=== PATIENT | female | born 1960 | race Caucasian/White ===

== ENCOUNTER 2016-06-19 00:26 | Emergency (ER) | payer OTHER ==
[~2016-06-19] VITALS: Ht 160 cm; Wt 83.1 kg
[~2016-06-19 00:26] MED LIST: ALBU1AER9 INH; ALPR0.25 PO; CYAN3INJ IM; DIPH-437 PO; EFF75 PO; FRS/40 PO; OXGN; PREG100C PO; SUCR5SUS PO; WLL100 PO
[2016-06-19 00:34] VITALS: TEMP 36.5; Ht 160 cm; Wt 83.1 kg
[2016-06-19] MEDS ORDERED: SODIUM CHLORIDE 0.9% 1000ML 1,000 ML IV STA (00:50)
[2016-06-19] MEDS ORDERED: ONDANSETRON INJ 2 MG/ML 2 ML VIAL IV STA (00:50)
[2016-06-19 01:24] LABS: BASO % 1.8 %; COMPLETE YES; EOS % 2.6 %; HEMATOCRIT 36.4 % (37-47); IG% 0.2 %; LYMPH % 20.6 %; LYMPH ABS # 1.13 K/uL (1.2-3.4); MEAN CELL VOLUME 95.3 fL (80-100); MEAN CORPUSCULAR HEMOGLOBIN 30.9 pg (25-34); MEAN CORPUSCULAR HGB CONC 32.4 g/dl (32-36); MEAN PLATELET VOLUME 10.6 fL (7.4-10.4); MONO % 14.8 %; PLATELET COUNT 235 K/uL (130-400); RED BLOOD COUNT 3.82 M/uL (4.2-5.4); WHITE BLOOD COUNT 5.49 K/uL (4.8-10.8)
[2016-06-19 01:35] LABS: BLOOD UREA NITROGEN 18 mg/dl (7-18); BUN/CREATININE RATIO 18.5 (10-20); CALCIUM 8.3 mg/dl (8.5-10.1); CARBON DIOXIDE 23 mmol/L (21-32); CHLORIDE 112 mmol/L (98-107); CREATININE 0.95 mg/dl (0.60-1.20); GLUCOSE 127 mg/dl (70-99); POTASSIUM 4.1 mmol/L (3.5-5.1); SODIUM 144 mmol/L (136-145)
[2016-06-19 01:36] LABS: ALT/SGPT 16 U/L (12-78); AST/SGOT 8 U/L (15-37)
[2016-06-19 01:38] LABS: ALKALINE PHOSPHATASE 63 U/L (45-117)
[2016-06-19 01:45] LABS: URINE APPEARANCE CLOUDY (CLEAR); URINE BILIRUBIN NEG (NEG); URINE COLOR YELLOW; URINE EPITHELIAL CELL AUTO >30 /lpf (0-5); URINE NITRITE NEG (NEG); URINE SPECIFIC GRAVITY 1.033 (1.000-1.030); UROBILINOGEN NEG (NEG); ZZUR CULT IF INDIC CLEAN CATCH NO
[2016-06-19 01:55] LABS: MANUAL MICROSCOPIC REQUIRED? NO; REVIEW REQ? YES
--- NOTE | 2016-06-19 02:13 | EMERGENCY ROOM VISIT NOTE ---
History Report prepared by Vernellibmarguerite: Surya Galvan Under the Supervision of: Dr. Chu Drew D.O. First contact with patient: 00:40 Chief Complaint: FLU LIKE SX Stated Complaint: FEVER,VOMITING History of Present Illness The patient is a 56 year old female who presents to the Emergency Room with complaints of recurrent vomiting that started tonight. The patient vomited 2-3 times over the past hour. The patient also complains of fevers, lightheadedness , and coughing over the past several days. The patient's temperature has reached up to 103, as per her . Source of History: patient, spouse/significant other Onset: tonight Position: other (GI) Quality: other (vomiting) Timing: other (recurrent) Associated Symptoms: + cough, + fevers Review of Systems See HPI for pertinent positives & negatives. A total of 10 systems reviewed and were otherwise negative. Past Medical & Surgical Medical Problems: (1) Chronic obstructive lung disease (2) Congestive heart failure, unspecified (3) Depression (4) Fibromyalgia (5) GERD (gastroesophageal reflux disease) (6) HYPERLIPIDEMIA NEC/NOS (7) HYPERTENSION NOS (8) Leg wound, left (9) Nocturnal hypoxemia (10) OBSTRUCTIVE SLEEP APNEA (ADULT) (PEDIATRIC) (11) Osteoarthritis (12) Restless legs Surgical Problems: (1) Gastric bypass status for obesity (2) H/O arthroscopic knee surgery (3) Hx of appendectomy (4) S/P bronchoscopy (5) S/p EGD Family History Unobtainable family history due to adoption Social History Smoking Status: Never Smoker Alcohol Use: none Drug Use: none Marital Status: Housing Status: lives with significant other Occupation Status: unemployed Current/Historical Medications Scheduled Acetaminophen/Diphenhydramine (Tylenol Pm), 3 TAB PO HS Bupropion HCl (Bupropion HCl), 100 MG PO QAM Cyanocobalamin (Cyanocobalamin), 1,000 MCG INJ MONTHLY Omeprazole (Prilosec), 20 MG PO BID Oxygen (Oxygen), 3 LITERS NA HS Pediatric Multiple Vitamins W/ (Flintstones Plus Iron), 1 TAB PO QAM Pregabalin (Lyrica), 100 MG PO TID Sucralfate (Carafate), 1 GM PO QID Venlafaxine Hcl (Effexor), 75 MG PO BID Scheduled PRN Albuterol Hfa (Ventolin Hfa), 2 PUFFS INH Q6H PRN for SOB/Wheezing Alprazolam (Xanax), 0.25 MG PO DAILY PRN for Anxiety Furosemide (Lasix), 40-80 MG PO DAILY PRN for swelling Allergies Coded Allergies: Codeine (Verified Allergy, Intermediate, DIARRHEA/RASH,TOLERATES PERCOCET , 06/19/16) TOLERATES PERCOCET Clonazepam (Verified Allergy, Unknown, "PASS OUT", 06/19/16) NSAIDs (Verified Allergy, Unknown, UNKNOWN, 06/19/16) Sulfamethoxazole w/Trimethoprim (Verified Adverse Reaction, Intermediate, DELIRIUM, 06/19/16) pt devoped invontary muscle spasm ; Aspirin (Verified Adverse Reaction, Unknown, STOMACH IRRITATION, 06/19/16) Cephalexin (Verified Adverse Reaction, Unknown, GI SYMPTOMS, 06/19/16) UPSET STOMACH Hydrocodone (Verified Adverse Reaction, Unknown, OVESEDATION, 05/29/16) Hydromorphone (Verified Adverse Reaction, Unknown, weakness,sweating, 05/29) Physical Exam Vital Signs Date Time Temp Pulse Resp B/P Pulse Ox O2 Delivery O2 Flow Rate FiO2 06/19/16 02:22 70 18 116/65 95 Room Air 06/19/16 00:34 36.5 72 18 137/77 96 Room Air Physical Exam CONSTITUTIONAL/VITAL SIGNS: Reviewed / noted above. GENERAL: Non-toxic in appearance. INTEGUMENTARY: Warm, dry, and [place]. HEAD: Normocephalic. EYES: without scleral icterus or trauma. ENT/OROPHARYNX: clear and moist. LYMPHADENOPATHY/NECK: Is supple without lymphadenopathy or meningismus. RESPIRATORY: Lungs clear and equal. CARDIOVASCULAR: Regular rate and rhythm. GI/ABDOMEN: Soft and nontender. No organomegaly or pulsatile mass. No rebound or guarding. Normal bowel sounds. EXTREMITIES: Warm and well perfused. BACK: No CVA tenderness. NEUROLOGICAL: Intact without focal deficits. PSYCHIATRIC: normal affect. MUSCULOSKELETAL: Normally developed with good muscle tone. Medical Decision & Procedures ER Provider Diagnostic Interpretation: X ray results and stated below per my interpretation. CHEST ONE VIEW PORTABLE: No acute disease, no pneumonia, no free air. Laboratory Results 06/19/16 01:00 Red Blood Count 3.82, Mean Corpuscular Volume 95.3, Mean Corpuscular Hemoglobin 30.9, Mean Corpuscular Hemoglobin Concent 32.4, Mean Platelet Volume 10.6, Neutrophils (%) (Auto) 60.0, Lymphocytes (%) (Auto) 20.6, Monocytes (%) (Auto) 14.8, Eosinophils (%) (Auto) 2.6, Basophils (%) (Auto) 1.8, Neutrophils # (Auto ) 3.30, Lymphocytes # (Auto) 1.13, Monocytes # (Auto) 0.81, Eosinophils # (Auto ) 0.14, Basophils # (Auto) 0.10 06/19/16 01:00 Test 06/19/16 01:00 06/19/16 01:08 White Blood Count 5.49 K/uL (4.8-10.8) Red Blood Count 3.82 M/uL (4.2-5.4) Hemoglobin 11.8 g/dL (12.0-16.0) Hematocrit 36.4 % (37-47) Mean Corpuscular Volume 95.3 fL (80-100) Mean Corpuscular Hemoglobin 30.9 pg (25-34) Mean Corpuscular Hemoglobin Concent 32.4 g/dl (32-36) Platelet Count 235 K/uL (130-400) Mean Platelet Volume 10.6 fL (7.4-10.4) Neutrophils (%) (Auto) 60.0 % Lymphocytes (%) (Auto) 20.6 % Monocytes (%) (Auto) 14.8 % Eosinophils (%) (Auto) 2.6 % Basophils (%) (Auto) 1.8 % Neutrophils # (Auto) 3.30 K/uL (1.4-6.5) Lymphocytes # (Auto) 1.13 K/uL (1.2-3.4) Monocytes # (Auto) 0.81 K/uL (0.11-0.59) Eosinophils # (Auto) 0.14 K/uL (0-0.5) Basophils # (Auto) 0.10 K/uL (0-0.2) RDW Standard Deviation 50.5 fL (36.4-46.3) RDW Coefficient of Variation 14.6 % (11.5-14.5) Immature Granulocyte % (Auto) 0.2 % Immature Granulocyte # (Auto) 0.01 K/uL (0.00-0.02) Anion Gap 9.0 mmol/L (3-11) Est Creatinine Clear Calc Drug Dose 67.5 ml/min Estimated GFR () 77.6 Estimated GFR (Non- 67.0 BUN/Creatinine Ratio 18.5 (10-20) Calcium Level 8.3 mg/dl (8.5-10.1) Total Bilirubin 0.2 mg/dl (0.2-1) Direct Bilirubin < 0.1 mg/dl (0-0.2) Aspartate Amino Transf (AST/SGOT) 8 U/L (15-37) Alanine Aminotransferase (ALT/SGPT) 16 U/L (12-78) Alkaline Phosphatase 63 U/L (45-117) Total Protein 6.4 gm/dl (6.4-8.2) Albumin 3.1 gm/dl (3.4-5.0) Lipase 137 U/L (73-393) Urine Color YELLOW Urine Appearance CLOUDY (CLEAR) Urine pH 5.0 (4.5-7.5) Urine Specific [place] 1.033 (1.000-1.030) Urine Protein 1+ (NEG) Urine Glucose (UA) NEG (NEG) Urine Ketones TRACE (NEG) Urine Occult Blood NEG (NEG) Urine Nitrite NEG (NEG) Urine Bilirubin NEG (NEG) Urine Urobilinogen NEG (NEG) Urine Leukocyte Esterase NEG (NEG) Urine WBC (Auto) 1-5 /hpf (0-5) Urine RBC (Auto) >30 /hpf (0-4) Urine Hyaline Casts (Auto) 10-30 /lpf (0-5) Urine Epithelial Cells (Auto) >30 /lpf (0-5) Urine Bacteria (Auto) NEG (NEG) Urine Renal Epithelial Cells /lpf (0-5) Urine Crystals CALCIUM OXALATE (NONE Laboratory results as stated above per my review. Medications Administered Medications (Trade) Dose Ordered Sig/Gabriel Route Start Time Stop Time Status Last Admin Dose Admin Sodium Chloride (Nss 1000ml) 1,000 ml @ 999 mls/hr Q1H1M STAT IV 06/19/16 00:50 06/19/16 01:50 DC 06/19/16 01:15 999 MLS/HR Ondansetron HCl (Zofran Inj) 4 mg NOW STAT IV 06/19/16 00:50 06/19/16 00:57 DC 06/19/16 01:15 4 MG Ondansetron HCl (ZOFRAN ODT 4MG Home Pack) 1 [facility] UD ONCE PO 06/19/16 02:15 06/19/16 02:16 DC 06/19/16 02:15 1 [facility] ED Course 0041: Previous medical records were reviewed. The patient was evaluated in room B9. A complete history and physical examination was performed. 0050: Zofran 4 mg IV, NSS 1000 ml @ 999 mls/hr. 0215: Zofran Odt 4 mg PO home pack. 0215: Reassessed the patient. She verbalized understanding and agreement of the treatment plan. The patient is ready for discharge. Medical Decision Differential includes viral illness, influenza, streptococcal pharyngitis, meningitis, pneumonia, sinusitis, UTI, pyelonephritis, otitis media. This is a 56-year-old female who presents to the ED with a chief complaint of nausea and vomiting for the past several hours. She reports that she has had some upper respiratory symptoms as well over the past few days. She feels a little lightheaded and dizzy. Her vital signs are stable. She is afebrile. Exam was relatively unremarkable. She has no tenderness to the abdomen. CBC and complete metabolic panel are unremarkable. Urine did not suggest infection. She was treated with IV fluids and IV Zofran. She is felt to be stable for discharge and outpatient follow-up. Impression Primary Impression: Vomiting Scribe Attestation The scribe's documentation has been prepared under my direction and personally reviewed by me in its entirety. I confirm that the note above accurately reflects all work, treatment, procedures, and medical decision making performed by me. Departure Information Dispostion Home / Self-Care Referrals Kvng Ceron D.O. (PCP) Forms HOME CARE DOCUMENTATION FORM, IMPORTANT VISIT INFORMATION Patient Instructions ED Nausea Vomiting, My [facility] Additional Instructions Follow-up with your doctor for further care and evaluation in 1-2 days. Return to the emergency department for worsening or new symptoms or any concerns. You have been examined and treated today on an emergency basis only. This is not a substitute for, or an effort to provide, complete comprehensive medical care. It is impossible to recognize and treat all injuries or illnesses in a single emergency department visit. It is therefore important that you follow up closely with your doctor. Call as soon as possible for an appointment. Zofran: Allow one tablet to dissolve under the tongue every 6 hours as needed for nausea or vomiting.
[2016-06-19] MEDS ORDERED: ONDANSETRON HOME PACK 4MG OD TAB PO ONE (02:15)
[2016-06-19] MEDS ORDERED: VNTHFA/IN INH (02:20)
[2016-06-19 02:22] VITALS: BP 116/65; PULSE 70; O2SAT 95
--- NOTE | 2016-06-19 08:11 | DIAGNOSTIC IMAGING REPORT ---
CHEST ONE VIEW PORTABLE HISTORY: Generalized abdominal pain. COMPARISON: Chest 03/17/2016. FINDINGS: Patient is slightly rotated on this study. The heart is normal in size. The lungs appear clear. There is blunting the right lateral costophrenic sulcus. No pneumothorax. IMPRESSION: 1. Rotated study. 2. Blunting of the right lateral costophrenic sulcus. This could be due to focal pleural thickening or trace pleural fluid. 3. Otherwise, the lungs are clear. Electronically signed by: Elmer Quan M.D. 06/19/2016 8:10 AM Dictated Date/Time: 06/19/2016 8:09 AM
[2016-08-17] MEDS ORDERED: LYR100 PO (17:48)
[2016-08-17] MEDS ORDERED: LYR50 PO (17:57)
[2016-09-09] MEDS ORDERED: EFFSR75 PO (11:58)
[2016-09-09] MEDS ORDERED: VENL100T2 PO (12:03)
[2016-11-26] MEDS ORDERED: HYDR25CA PO (10:44)
[2016-11-26] MEDS ORDERED: EFFEXOR PO (10:44)
[2017-01-24] MEDS ORDERED: CYNI1000 IM (02:21)
[2017-01-24] MEDS ORDERED: PREG100C PO (10:44)
[2017-01-24] MEDS ORDERED: DIPH-437 PO (10:44)
[2017-01-24] MEDS ORDERED: CALC1TAB9 PO (10:44)
== END 2016-06-19 02:29 | disposition home or self-care (01) ==
LOC: C.EDB 00:28
DX: R11.10 Vomiting, unspecified (principal); J44.9 Chronic obstructive pulmonary disease, unspecified; I50.9 Heart failure, unspecified; F32.9 Major depressive disorder, single episode, unspecified; M79.7 Fibromyalgia; K21.9 Gastro-esophageal reflux disease without esophagitis; E78.5 Hyperlipidemia, unspecified; I10 Essential (primary) hypertension; G47.33 Obstructive sleep apnea (adult) (pediatric); Z98.84 Bariatric surgery status; Z99.81 Dependence on supplemental oxygen

== ENCOUNTER 2016-08-15 06:34 | Inpatient (IN) | payer OTHER ==
[~2016-08-15] VITALS: Ht 160 cm; Wt 85.0 kg
[2016-08-15] VITALS (7 sets, daily range): BP systolic 114–159; BP diastolic 57–99; PULSE 64–83; TEMP 36.5–36.9; O2SAT 93–100; Ht 160 cm; Wt 85.0 kg
[~2016-08-15 06:34] MED LIST changes: -ALBU1AER9 INH; -CYAN3INJ IM; +VNTHFA/IN INH
[2016-08-15] MEDS ORDERED: SODIUM CHLORIDE 0.9% 1000ML 1,000 ML IV STA (06:49)
[2016-08-15 07:10] LABS: BASO % 0.8 %; BASO ABS # 0.04 K/uL (0-0.2); COMPLETE YES; EOS % 2.1 %; HEMATOCRIT 41.3 % (37-47); IG% 0.2 %; LYMPH ABS # 1.43 K/uL (1.2-3.4); MEAN CELL VOLUME 93.7 fL (80-100); MEAN CORPUSCULAR HEMOGLOBIN 30.6 pg (25-34); MEAN CORPUSCULAR HGB CONC 32.7 g/dl (32-36); MEAN PLATELET VOLUME 9.6 fL (7.4-10.4); NEUT % 65.9 %; PLATELET COUNT 215 K/uL (130-400); RED BLOOD COUNT 4.41 M/uL (4.2-5.4); WHITE BLOOD COUNT 5.29 K/uL (4.8-10.8)
[2016-08-15 07:15] LABS: URINE APPEARANCE CLEAR (CLEAR); URINE BILIRUBIN NEG (NEG); URINE COLOR YELLOW; URINE NITRITE NEG (NEG); URINE PH 5.5 (4.5-7.5); UROBILINOGEN NEG (NEG)
[2016-08-15 07:19] LABS: MANUAL MICROSCOPIC REQUIRED? NO; REVIEW REQ? NO
[2016-08-15 07:35] LABS: ACETAMINOPHEN < 2 ug/ml (10-30)
[2016-08-15 07:37] LABS: ALT/SGPT 22 U/L (12-78); AST/SGOT 19 U/L (15-37); BLOOD UREA NITROGEN 14 mg/dl (7-18); CALCIUM 8.3 mg/dl (8.5-10.1); CARBON DIOXIDE 27 mmol/L (21-32); CHLORIDE 114 mmol/L (98-107); GLUCOSE 115 mg/dl (70-99); POTASSIUM 3.8 mmol/L (3.5-5.1); SODIUM 146 mmol/L (136-145)
[2016-08-15 07:43] LABS: BENZODIAZEPINE, URINE POS (NEG); COCAINE,URINE NEG (NEG); PHENCYCLIDINE, URINE NEG (NEG)
[2016-08-15] MEDS ORDERED: RAPID SEQUENCE INDUCTION BAG ONE (07:44)
[2016-08-15 07:48] LABS: ALKALINE PHOSPHATASE 89 U/L (45-117)
--- NOTE | 2016-08-15 07:55 | DIAGNOSTIC IMAGING REPORT ---
CT SCAN OF THE BRAIN WITHOUT IV CONTRAST CLINICAL HISTORY: Fever. Sepsis. Unresponsive. COMPARISON STUDY: CT of the brain dated 03/17/2016. TECHNIQUE: Unenhanced axial CT scan of the brain is performed from the vertex to the skull base. Automated dose control exposure was utilized. CT DOSE: 614.27 mGy.cm FINDINGS: Brain parenchyma: The brain parenchyma is normal in appearance. There is no hemorrhage, mass effect, or evidence of acute territorial ischemia by CT criteria. Gill-white matter is preserved. No extra-axial fluid collection is seen. Ventricles, sulci, cisterns: Normal in configuration. Intracranial vasculature: The visualized intracranial vasculature at the skull base is normal in appearance. Calvarium: Unremarkable. Sinuses and mastoids: The visualized paranasal sinuses are clear. The mastoid air cells are well pneumatized. Orbits: The bony orbits are grossly intact. Soft tissues: A tongue piercing is noted. IMPRESSION: There is no hemorrhage, mass effect, or evidence of acute territorial ischemia by CT criteria. Electronically signed by: Devin Aguirre M.D. 08/15/2016 7:52 AM Dictated Date/Time: 08/15/2016 7:36 AM
[2016-08-15] MEDS ORDERED: LORAZEPAM 2 MG/ML 1 ML VIAL ONE (08:03)
[2016-08-15] MEDS ORDERED: PROPOFOL IV EMULSION 10 MG/ML 100 ML VIAL IV ONE (08:08)
[2016-08-15] MEDS ORDERED: PROPOFOL IV EMULSION 10 MG/ML 100 ML VIAL IV PRN (08:15)
--- NOTE | 2016-08-15 08:15 | DIAGNOSTIC IMAGING REPORT ---
SINGLE VIEW CHEST CLINICAL HISTORY: Fever. Sepsis. FINDINGS: An AP, portable, semierect chest radiograph is compared to study dated 06/19/2016 and correlated with chest CT dated 03/18/2016. The examination is degraded by portable technique, motion artifact, and patient rotation. An endotracheal tube has been placed. The tip projects just below the thoracic inlet approximately 4.5 cm above the slime. The cardiomediastinal silhouette is unremarkable. There is mild prominence of the pulmonary vessels. Chronic interstitial thickening is similar to previous. No airspace consolidation or large pleural effusion is identified. No pneumothorax is seen. The skeletal structures are osteopenic. Degenerative change is noted throughout the thoracic spine. IMPRESSION: 1. No airspace consolidation or pleural effusion is identified. 2. There is mild prominence the central pulmonary vessels, possibly related to positioning. Correlate clinically for evidence of mild congestion. 3. The endotracheal tube projects 4.5 cm above the slime. Electronically signed by: Devin Aguirre M.D. 08/15/2016 8:13 AM Dictated Date/Time: 08/15/2016 8:08 AM
[2016-08-15 08:34] LABS: ALLEN TEST POS (POS); ARTERIAL BLD GAS O2 SATURATION 99.8 % (90-95); ARTERIAL BLOOD GAS BASE EXCESS -5.2 mEq/L (-9-1.8); ARTERIAL BLOOD GAS HCO3 23 mmol/L (19-24); ARTERIAL BLOOD GAS PO2 313 mm/Hg (80-95); ARTERIAL BLOOD GAS pH 7.24 (7.35-7.45); O2 ADMINISTRATION 60%
--- NOTE | 2016-08-15 08:44 | EMERGENCY ROOM VISIT NOTE ---
History Report prepared by [place]: Subha Roth Under the Supervision of: Dr. Chu Drew D.O. First contact with patient: 06:49 Chief Complaint: ALTERED MENTAL STATUS Stated Complaint: ALTERED MENTAL STATUS Nursing Triage Summary: Pt brought in by EMS. Pt was outside sleeping in a tent. found pt shaking and not responding appropriate. EMS would arouse pt and she would sit up and flail her arms. Pt arouses to sternal rub but is nonverbal. Snoring respirations. Pt was given Narcan 2 mg enroute with no response. Blood sugar was 95. Temp 33.1 Rectal. Pt incontinent of urine and stool. History of Present Illness The patient is a 56 year old female who presents to the Emergency Room in an altered mental status starting [employer]. The patient was brought to the ED by EMS. Nursing staff reports that the patient was tenting outside. Her found the patient shaking and unresponsive. She was found covered in emesis and had fecal and urinary incontinence. Her temperature was 33.1. She was given Narcan en route to no response. The history is limited due to the patient's altered mental status. 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 Review of Systems Unobtainable due to altered mental status. Past Medical & Surgical Medical Problems: (1) Anxiety (2) Congestive heart failure, unspecified (3) Depression (4) Dyslipidemia (5) Fibromyalgia (6) GERD (gastroesophageal reflux disease) (7) Leg wound, left (8) Organic sleep disorder (9) Osteoarthritis (10) Restless legs (11) Unresponsiveness Surgical Problems: (1) Gastric bypass status for obesity (2) H/O arthroscopic knee surgery (3) Hx of appendectomy (4) S/P bronchoscopy (5) S/p EGD Family History Unobtainable family history due to adoption Social History Smoking Status: Unknown if Ever Smoked Alcohol Use: none Drug Use: none Marital Status: Housing Status: lives with significant other Occupation Status: unemployed Current/Historical Medications Scheduled Acetaminophen/Diphenhydramine (Tylenol Pm), 3 TAB PO HS Baclofen (Lioresal), 5 MG PO BID Bupropion HCl (Bupropion HCl), 100 MG PO QAM Cyanocobalamin (Cyanocobalamin), 1,000 MCG INJ MONTHLY Omeprazole (Prilosec), 20 MG PO BID Pediatric Multiple Vitamins W/ (Flintstones Plus Iron), 2 TAB PO QAM Pregabalin (Lyrica), 100 MG PO TID Sucralfate (Carafate), 1 GM PO QID Venlafaxine Hcl (Effexor), 75 MG PO BID Scheduled PRN Albuterol Hfa (Ventolin Hfa), 2 PUFFS INH Q6H PRN for SOB/Wheezing Alprazolam (Xanax), 0.25 MG PO BID PRN for Anxiety Furosemide (Lasix), 40 MG PO DAILY PRN for swelling Allergies Coded Allergies: Codeine (Verified Allergy, Intermediate, DIARRHEA/RASH,TOLERATES PERCOCET , 06/19/16) TOLERATES PERCOCET Clonazepam (Verified Allergy, Unknown, "PASS OUT", 06/19/16) NSAIDs (Verified Allergy, Unknown, UNKNOWN, 06/19/16) Sulfamethoxazole w/Trimethoprim (Verified Adverse Reaction, Intermediate, DELIRIUM, 06/19/16) pt devoped invontary muscle spasm ; Aspirin (Verified Adverse Reaction, Unknown, STOMACH IRRITATION, 06/19/16) Cephalexin (Verified Adverse Reaction, Unknown, GI SYMPTOMS, 06/19/16) UPSET STOMACH Hydrocodone (Verified Adverse Reaction, Unknown, OVESEDATION, 05/29/16) Hydromorphone (Verified Adverse Reaction, Unknown, weakness,sweating, 05/29) Physical Exam Vital Signs Date Time Temp Pulse Resp B/P Pulse Ox O2 Delivery O2 Flow Rate FiO2 08/15/16 10:45 54 16 144/89 100 Mechanical Ventilator 60 08/15/16 10:05 48 18 147/101 100 Mechanical Ventilator 60 08/15/16 09:43 33.4 51 16 140/100 100 Mechanical Ventilator 60 08/15/16 09:00 56 16 148/87 100 60 08/15/16 08:55 45 16 148/87 100 Mechanical Ventilator 60 08/15/16 08:45 45 16 137/87 100 Mechanical Ventilator 60 08/15/16 08:41 47 16 136/87 100 Mechanical Ventilator 60 08/15/16 08:35 50 12 142/87 100 Mechanical Ventilator 60 08/15/16 08:26 52 12 139/81 100 Mechanical Ventilator 60 08/15/16 08:20 70 08/15/16 08:20 56 13 159/96 100 Mechanical Ventilator 60 08/15/16 08:12 59 12 152/102 100 Mechanical Ventilator 60 08/15/16 07:52 56 12 186/107 100 Mechanical Ventilator 60 08/15/16 07:47 49 12 178/99 100 Mechanical Ventilator 60 08/15/16 07:40 100 08/15/16 07:28 49 10 120/71 100 Non-Rebreather 15.0 08/15/16 06:53 100 Room Air 08/15/16 06:48 100 Room Air 08/15/16 06:44 55 08/15/16 06:38 33.1 54 24 171/89 100 Room Air Physical Exam CONSTITUTIONAL/VITAL SIGNS: Reviewed / noted above. GENERAL: Non-toxic in appearance. INTEGUMENTARY: Warm, dry, and [place]. HEAD: Normocephalic. EYES: without scleral icterus or trauma. Pupils are 3 mm, appropriate response to light stimulus. ENT/OROPHARYNX: clear and moist. LYMPHADENOPATHY/NECK: Is supple without lymphadenopathy or meningismus. RESPIRATORY: Lungs clear and equal. CARDIOVASCULAR: Regular rate and rhythm. GI/ABDOMEN: Soft and nontender. No organomegaly or pulsatile mass. No rebound or guarding. Normal bowel sounds. EXTREMITIES: Warm and well perfused. No evidence of trauma. BACK: No CVA tenderness. NEUROLOGICAL: Patient withdraws to painful stimuli, otherwise unresponsive. Minimal gag reflex. PSYCHIATRIC: normal affect. MUSCULOSKELETAL: Normally developed with good muscle tone. Medical Decision & Procedures ER Provider Diagnostic Interpretation: X ray results and stated below per my interpretation and radiology interpretation. Radiology results as stated below per my review and radiologist interpretation: SINGLE VIEW CHEST CLINICAL HISTORY: Fever. Sepsis. FINDINGS: An AP, portable, semierect chest radiograph is compared to study dated 06/19/2016 and correlated with chest CT dated 03/18/2016. The examination is degraded by portable technique, motion artifact, and patient rotation. An endotracheal tube has been placed. The tip projects just below the thoracic inlet approximately 4.5 cm above the slime. The cardiomediastinal silhouette is unremarkable. There is mild prominence of the pulmonary vessels. Chronic interstitial thickening is similar to previous. No airspace consolidation or large pleural effusion is identified. No pneumothorax is seen. The skeletal structures are osteopenic. Degenerative change is noted throughout the thoracic spine. IMPRESSION: 1. No airspace consolidation or pleural effusion is identified. 2. There is mild prominence the central pulmonary vessels, possibly related to positioning. Correlate clinically for evidence of mild congestion. 3. The endotracheal tube projects 4.5 cm above the slime. Electronically signed by: Devin Aguirre M.D. 08/15/2016 8:13 AM Dictated Date/Time: 08/15/2016 8:[address] SCAN OF THE BRAIN WITHOUT IV CONTRAST CLINICAL HISTORY: Fever. Sepsis. Unresponsive. COMPARISON STUDY: CT of the brain dated 03/17/2016. TECHNIQUE: Unenhanced axial CT scan of the brain is performed from the vertex to the skull base. Automated dose control exposure was utilized. CT DOSE: 614.27 mGy.cm FINDINGS: Brain parenchyma: The brain parenchyma is normal in appearance. There is no hemorrhage, mass effect, or evidence of acute territorial ischemia by CT criteria. Gill-white matter is preserved. No extra-axial fluid collection is seen. Ventricles, sulci, cisterns: Normal in configuration. Intracranial vasculature: The visualized intracranial vasculature at the skull base is normal in appearance. Calvarium: Unremarkable. Sinuses and mastoids: The visualized paranasal sinuses are clear. The mastoid air cells are well pneumatized. Orbits: The bony orbits are grossly intact. Soft tissues: A tongue piercing is noted. IMPRESSION: There is no hemorrhage, mass effect, or evidence of acute territorial ischemia by CT criteria. Electronically signed by: Devin Aguirre M.D. 08/15/2016 7:52 AM Dictated Date/Time: 08/15/2016 7:36 AM Laboratory Results 08/15/16 06:50 Red Blood Count 4.41, Mean Corpuscular Volume 93.7, Mean Corpuscular Hemoglobin 30.6, Mean Corpuscular Hemoglobin Concent 32.7, Mean Platelet Volume 9.6, Neutrophils (%) (Auto) 65.9, Lymphocytes (%) (Auto) 27.0, Monocytes (%) (Auto) 4.0, Eosinophils (%) (Auto) 2.1, Basophils (%) (Auto) 0.8, Neutrophils # (Auto) 3.49, Lymphocytes # (Auto) 1.43, Monocytes # (Auto) 0.21, Eosinophils # (Auto) 0.11, Basophils # (Auto) 0.04 08/15/16 06:50 Test 08/15/16 06:46 08/15/16 06:50 08/15/16 06:59 08/15/16 08:00 Bedside Glucose 111 mg/dl (70-90) White Blood Count 5.29 K/uL (4.8-10.8) Red Blood Count 4.41 M/uL (4.2-5.4) Hemoglobin 13.5 g/dL (12.0-16.0) Hematocrit 41.3 % (37-47) Mean Corpuscular Volume 93.7 fL (80-100) Mean Corpuscular Hemoglobin 30.6 pg (25-34) Mean Corpuscular Hemoglobin Concent 32.7 g/dl (32-36) Platelet Count 215 K/uL (130-400) Mean Platelet Volume 9.6 fL (7.4-10.4) Neutrophils (%) (Auto) 65.9 % Lymphocytes (%) (Auto) 27.0 % Monocytes (%) (Auto) 4.0 % Eosinophils (%) (Auto) 2.1 % Basophils (%) (Auto) 0.8 % Neutrophils # (Auto) 3.49 K/uL (1.4-6.5) Lymphocytes # (Auto) 1.43 K/uL (1.2-3.4) Monocytes # (Auto) 0.21 K/uL (0.11-0.59) Eosinophils # (Auto) 0.11 K/uL (0-0.5) Basophils # (Auto) 0.04 K/uL (0-0.2) RDW Standard Deviation 52.9 fL (36.4-46.3) RDW Coefficient of Variation 15.4 % (11.5-14.5) Immature Granulocyte % (Auto) 0.2 % Immature Granulocyte # (Auto) 0.01 K/uL (0.00-0.02) Prothrombin Time 11.0 SECONDS (9.0-12.0) Prothromb Time International Ratio 1.0 (0.9-1.1) Activated Partial Thromboplast Time 25.4 SECONDS (21.0-31.0) Partial Thromboplastin Ratio 1.0 Urine Color YELLOW Urine Appearance CLEAR (CLEAR) Urine pH 5.5 (4.5-7.5) Urine Specific [place] 1.010 (1.000-1.030) Urine Protein NEG (NEG) Urine Glucose (UA) NEG (NEG) Urine Ketones NEG (NEG) Urine Occult Blood NEG (NEG) Urine Nitrite NEG (NEG) Urine Bilirubin NEG (NEG) Urine Urobilinogen NEG (NEG) Urine Leukocyte Esterase NEG (NEG) Anion Gap 5.0 mmol/L (3-11) Est Creatinine Clear Calc Drug Dose 68.6 ml/min Estimated GFR () 72.9 Estimated GFR (Non- 62.9 BUN/Creatinine Ratio 14.0 (10-20) Osmolality 303 mOsm/kg (280-300) Calcium Level 8.3 mg/dl (8.5-10.1) Total Bilirubin 0.2 mg/dl (0.2-1) Direct Bilirubin < 0.1 mg/dl (0-0.2) Aspartate Amino Transf (AST/SGOT) 19 U/L (15-37) Alanine Aminotransferase (ALT/SGPT) 22 U/L (12-78) Alkaline Phosphatase 89 U/L (45-117) Total Creatine Kinase 99 U/L (26-192) Creatine Kinase MB 3.0 ng/ml (0.5-3.6) Creatine Kinase MB Ratio 3.0 (0-3.0) Troponin I < 0.015 ng/ml (0-0.045) Total Protein 6.9 gm/dl (6.4-8.2) Albumin 3.2 gm/dl (3.4-5.0) Lipase 115 U/L (73-393) Thyroid Stimulating Hormone (TSH) 2.420 uIu/ml (0.300-4.500) Human Chorionic Gonadotropin, Quant 2 mIU/mL Salicylates Level 5.0 mg/dl (2.8-20) Urine Opiates Screen NEG (NEG) Urine Methadone, Qualitative NEG (NEG) Acetaminophen Level < 2 ug/ml (10-30) Urine Barbiturates NEG (NEG) Urine Phencyclidine (PCP) Level NEG (NEG) Ur Amphetamine/Methamphetamine NEG (NEG) MDMA (Ecstasy) Screen POS (NEG) Urine Benzodiazepines Screen POS (NEG) Urine Cocaine Metabolite NEG (NEG) Urine Marijuana (THC) NEG (NEG) Ethyl Alcohol mg/dL < 3.0 mg/dl (0-3) Ammonia 15.0 umol/L (11-32) Arterial Blood pH 7.24 (7.35-7.45) Arterial Blood Partial Pressure CO2 54 mmHg (35-46) Arterial Blood Partial Pressure O2 313 mm/Hg (80-95) Arterial Blood HCO3 23 mmol/L (19-24) Arterial Blood Oxygen Saturation 99.8 % (90-95) Arterial Blood Base Excess -5.2 mEq/L (-9-1.8) Arterial Blood Gas Delivery 60% Cole Test POS (POS) Test 08/15/16 08:45 08/15/16 09:30 Lactic Acid Level 0.8 mmol/L (0.4-2.0) Carboxyhemoglobin 0.0 % [facility] Laboratory results as stated above per my review. Medications Administered Medications (Trade) Dose Ordered Sig/Gabriel Route Start Time Stop Time Status Last Admin Dose Admin Sodium Chloride (Nss 1000ml) 1,000 ml @ 999 mls/hr Q1H1M STAT IV 08/15/16 06:49 08/15/16 07:49 DC 08/15/16 06:55 999 MLS/HR Miscellaneous (Rapid Sequence Induction Bag) 1 ea STK-MED ONCE N/A 08/15/16 07:44 08/15/16 07:45 DC 08/15/16 07:40 1 EA Lorazepam (Ativan Inj) 2 mg STK-MED ONCE .ROUTE 08/15/16 08:03 08/15/16 08:04 DC 08/15/16 08:07 2 MG Propofol (Diprivan Iv Emulsion 100ml Vial) 1 dose STK-MED ONCE IV 08/15/16 08:08 08/15/16 08:09 DC 08/15/16 08:08 1 DOSE Procedure Endotracheal Intubation Indication unresponsiveness. The patient was on 100% oxygen via NRB prior to the procedure. Suction, airway equipment, RSI drugs, respiratory equipment, and appropriate personnel were prepared prior to the initiation of the procedure. A time out was taken. Induction was performed with etomidate 20 mg IV and succinylcholine 140 mg IV. After observing the clinical benefit of the medications, the airway was easily visualized utilizing a GlideScope. A 7.5 size ETT tube was placed atraumatically to 24 cm advance to 25 after chest X-ray using standard technique. The cuff inflated without signs of malfunction. There were bilateral breath sounds, positive colormetric change, no gastric sounds, a good capnography waveform, and post procedure pulse oximetry was 100%. Post intubation sedation and paralysis was administered using 2 mg IV Ativan. There were no complications. ECG Indication: altered mental status Rate (beats per minute): 53 Rhythm: sinus rhythm Findings: PAC, no ectopy, other (no acute injury) ED Course 0649: NSS 1000 ml @ 999 mls/hr IV. 0658: Previous medical records were reviewed. The patient was evaluated in room A12B. A complete history and physical examination was performed. 0705: The patient was moved to room A1. 0733: I intubated the patient according to the procedure note above. 0744: Rapid Sequence Induction Bag 1 ea. 0803: Lorazepam 2 mg IV. 0808: Propofol 1 dose IV. 0822: I discussed the patient's case with Seema Carlisle PA-C [facility] hospitalist group. She will evaluate the patient for further management. 1130: I have extubated the patient. She is now awake and responsive. Medical Decision Differential includes acute cardiac dysrhythmia, microinfarction, CVA, TIA, dehydration, anemia, electrolyte disturbance, seizure, trauma, intracranial bleeding, acute vascular catastrophe, thoracic aortic dissection, PE, abdominal aortic aneurysm rupture, infection, hypoglycemia, overdose, trauma. This is a 56-year-old female who presents to the ED with a chief complaint of unresponsiveness. According to the nurses, who spoke with EMS, the patient was outside sleeping in a tent last night with her . When he awoke this morning, he found that she was not responding appropriately and shaking. EMS states the with painful stimuli she would raise her arms and shake. She did not respond. Prehospital blood sugar was 95. Narcan 2 mg IV was given without response. The patient was transported here for evaluation. The patient has a rectal temperature of 33.1. Her vital signs are otherwise stable. She is not hypoxic. Her exam reveals withdrawal to painful stimuli but otherwise she is unresponsive with a GCS of 6. She has minimal gag reflex and is not swallowing her oral secretions. She did have vomitus at some point prior to arrival here. CT scan of the brain did not show acute process. CBC was normal. Complete metabolic panel was unremarkable. Ammonia level was negative. Troponin is negative. TSH is normal. HCG is negative. Lipase is negative. Urine did not show infection. Lactic acid is normal. Tox screen was positive for MDMA and benzos. Alcohol is negative. EKG shows a sinus rhythm at a rate around 53 with PACs. No acute injury. Chest x-ray, following intubation, revealed a endotracheal tube 4 cm above the slime. This was advanced 1 cm. The lungs appear to be clear. ABG reveals a pH of 7.24, PCO2 of 54 and PaO2 of 313. The patient's initial ventilator settings included a rate of 12, volume of 500, PEEP of 5 and 60% FiO2. The rate was increased to 16. After intubation, the patient was given 2 mg of IV Ativan. She was then started on a propofol drip as she was moving somewhat and appeared to be slightly uncomfortable with the ventilator. I spoke with the hospitalist, who will see the patient for further inpatient evaluation and care. Consults Time Called: 08 Consulting Physician: VONDA Willett hospitalist group Returned Call: 08 Discussed the patient's case. The patient will be evaluated for further treatment and disposition. Impression Primary Impression: Altered mental status Additional Impressions: Respiratory failure Respiratory acidosis Critical Care I have personally spent greater than 35 minutes of critical care time in the direct management of this patient. This includes bedside care, interpretation of diagnostic studies, and testing, discussion with consultants, patient, and family members, and other required patient management activities. This 35 minutes is in excess of all separately billable procedures. Scribe Attestation The scribe's documentation has been prepared under my direction and personally reviewed by me in its entirety. I confirm that the note above accurately reflects all work, treatment, procedures, and medical decision making performed by me. Departure Information Dispostion Being Evaluated By Hospitalist Referrals Kvng Ceron D.O. (PCP) Patient Instructions My [facility] Problem Qualifiers
[2016-08-15] MEDS ORDERED: BACL1TAB PO (09:43)
--- NOTE | 2016-08-15 13:17 | History and Physical ---
History & Physical Date & Time of Service: Aug 15, 2016 at 09:45 Chief Complaint: Altered Mental Status Primary Care Physician: Kvng Ceron D.O. 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 Per via phone call , pt was in normal state of health yesterday. Patient and were camping outside overnight. There was no heating in the tent. states overnight pt had an episode of diffuse body shaking. Then around 4:30 am was minimally responsive when he tried to wake her, was breathing abnormally, had another episode of diffuse body shaking, and dry heaves. called 911. Patient was given Narcan en route without effect. Pre-hospital BSG was WNL. On arrival to the ER she was noted to be covered in emesis and incontinent of bowel and bladder. She was minimally responsive to painful stimuli. Pt was hypothermic with HR 40s-50s with sinus bradycardia and PACs on EKG. Patient's respirations were as low as 10/min with poor gag reflex, therefore patient was intubated. He denies patient recently taking in alcohol or illicit drugs. Last narcotic medication use was >1 month ago (tramadol). states Xanax 0.25 mg recently was increased by psychiatrist from daily to BID. states she took 2 tabs yesterday am and unsure if she took it yesterday evening. Patient was hospitalized in Mar 2016 for overdose from Klonopin and marijuana. No hx of seizures per . Prior EEG in December 2015 neg for seizure, + for moderate encephalopathy of nonspecific etiology. This is an abnormal routine EEG secondary to moderate diffuse background disorganization and slowing. states pt is no longer on nocturnal O2 after having repeat sleep study. Past Medical/Surgical History Medical Problems: (1) Anxiety Status: Chronic (2) Congestive heart failure, unspecified Permanent Comment: echo 03/25/13-grade 1 diastolic dysfunction with mild concentric LVH Status: Chronic (3) Depression Status: Chronic (4) Dyslipidemia Status: Chronic (5) Fibromyalgia Status: Chronic (6) GERD (gastroesophageal reflux disease) Status: Chronic (7) Organic sleep disorder Status: Chronic (8) Osteoarthritis Status: Chronic (9) Restless legs Status: Chronic Surgical Problems: (1) Gastric bypass status for obesity Status: Chronic (2) H/O arthroscopic knee surgery Permanent Comment: R knee; 1998 Status: Chronic (3) Hx of appendectomy Status: Chronic (4) S/P bronchoscopy Status: Chronic (5) S/p EGD Permanent Comment: 11/24/2014- small ulcers at anastamosis, brandy removed/ [facility] Status: Chronic Family History Unobtainable family history due to adoption Social History Alcohol Use: no recent etoh use as per Drug Use: none (no recent illicit drugs as per . marijuana use noted on prior admission. ) Marital Status: Housing status: lives with significant other Immunizations History of Influenza Vaccine: N/A History of Tetanus Vaccine?: No Tetanus Immunization Date: Aug 09, 2004 History of Pneumococcal: Unknown History of Hepatitis B Vaccine: No Multi-Drug Resistant Organisms History of MDRO: No Allergies Coded Allergies: Codeine (Verified Allergy, Intermediate, DIARRHEA/RASH,TOLERATES PERCOCET , 06/19/16) TOLERATES PERCOCET Clonazepam (Verified Allergy, Unknown, "PASS OUT", 06/19/16) NSAIDs (Verified Allergy, Unknown, UNKNOWN, 06/19/16) Sulfamethoxazole w/Trimethoprim (Verified Adverse Reaction, Intermediate, DELIRIUM, 06/19/16) pt devoped invontary muscle spasm ; Aspirin (Verified Adverse Reaction, Unknown, STOMACH IRRITATION, 06/19/16) Cephalexin (Verified Adverse Reaction, Unknown, GI SYMPTOMS, 06/19/16) UPSET STOMACH Hydrocodone (Verified Adverse Reaction, Unknown, OVESEDATION, 05/29/16) Hydromorphone (Verified Adverse Reaction, Unknown, weakness,sweating, 05/29) Home Medications Scheduled Acetaminophen/Diphenhydramine (Tylenol Pm), 3 TAB PO HS Baclofen (Lioresal), 5 MG PO BID Bupropion HCl (Bupropion HCl), 100 MG PO QAM Cyanocobalamin (Cyanocobalamin), 1,000 MCG INJ MONTHLY Omeprazole (Prilosec), 20 MG PO BID Pediatric Multiple Vitamins W/ (Flintstones Plus Iron), 2 TAB PO QAM Pregabalin (Lyrica), 100 MG PO TID Sucralfate (Carafate), 1 GM PO QID Venlafaxine Hcl (Effexor), 75 MG PO BID Scheduled PRN Albuterol Hfa (Ventolin Hfa), 2 PUFFS INH Q6H PRN for SOB/Wheezing Alprazolam (Xanax), 0.25 MG PO BID PRN for Anxiety Furosemide (Lasix), 40 MG PO DAILY PRN for swelling Review of Systems Unobtainable due to unresponsiveness. Physical Exam Vital Signs Date Time Temp Pulse Resp B/P Pulse Ox O2 Delivery O2 Flow Rate FiO2 08/15/16 09:00 56 16 148/87 100 60 08/15/16 08:55 45 16 148/87 100 Mechanical Ventilator 60 08/15/16 08:45 45 16 137/87 100 Mechanical Ventilator 60 08/15/16 08:41 47 16 136/87 100 Mechanical Ventilator 60 08/15/16 08:35 50 12 142/87 100 Mechanical Ventilator 60 08/15/16 08:26 52 12 139/81 100 Mechanical Ventilator 60 08/15/16 08:20 70 08/15/16 08:20 56 13 159/96 100 Mechanical Ventilator 60 08/15/16 08:12 59 12 152/102 100 Mechanical Ventilator 60 08/15/16 07:52 56 12 186/107 100 Mechanical Ventilator 60 08/15/16 07:47 49 12 178/99 100 Mechanical Ventilator 60 08/15/16 07:40 100 08/15/16 07:28 49 10 120/71 100 Non-Rebreather 15.0 08/15/16 06:53 100 Room Air 08/15/16 06:48 100 Room Air 08/15/16 06:44 55 08/15/16 06:38 33.1 54 24 171/89 100 Room Air General Appearance: + pertinent finding (56 year old female, unresponsive to sternal rub, on ventilator) Head: normocephalic, atraumatic Eyes: normal inspection, PERRL, sclerae normal ENT: + pertinent finding (unable to examine) Neck: trachea midline Respiratory/Chest: lungs clear, normal breath sounds, + pertinent finding ( saturating well on ventilator) Cardiovascular: no murmur, + bradycardia (regular rhythm), + pertinent finding (peripheral pulses 1+) Abdomen/GI: normal bowel sounds, non tender, soft Extremities/Musculoskelatal: normal capillary refill, no pedal edema Neurologic/Psych: + pertinent finding (unresponsive to sternal rub. unable to do motor and sensory testing due to unresponsive state. ) Skin: normal color, warm/dry Diagnostics Laboratory Results Results Past 24 Hours Test 08/15/16 06:46 08/15/16 06:50 08/15/16 06:59 08/15/16 08:00 Range/Units Bedside Glucose 111 70-90 mg/dl White Blood Count 5.29 4.8-10.8 K/uL Red Blood Count 4.41 4.2-5.4 M/uL Hemoglobin 13.5 12.0-16.0 g/dL Hematocrit 41.3 37-47 % Mean Corpuscular Volume 93.7 80-100 fL Mean Corpuscular Hemoglobin 30.6 25-34 pg Mean Corpuscular Hemoglobin Concent 32.7 32-36 g/dl Platelet Count 215 130-400 K/uL Mean Platelet Volume 9.6 7.4-10.4 fL Neutrophils (%) (Auto) 65.9 % Lymphocytes (%) (Auto) 27.0 % Monocytes (%) (Auto) 4.0 % Eosinophils (%) (Auto) 2.1 % Basophils (%) (Auto) 0.8 % Neutrophils # (Auto) 3.49 1.4-6.5 K/uL Lymphocytes # (Auto) 1.43 1.2-3.4 K/uL Monocytes # (Auto) 0.21 0.11-0.59 K/uL Eosinophils # (Auto) 0.11 0-0.5 K/uL Basophils # (Auto) 0.04 0-0.2 K/uL RDW Standard Deviation 52.9 36.4-46.3 fL RDW Coefficient of Variation 15.4 11.5-14.5 % Immature Granulocyte % (Auto) 0.2 % Immature Granulocyte # (Auto) 0.01 0.00-0.02 K/uL Prothrombin Time 11.0 9.0-12.0 SECONDS Prothromb Time International Ratio 1.0 0.9-1.1 Activated Partial Thromboplast Time 25.4 21.0-31.0 SECONDS Partial Thromboplastin Ratio 1.0 Urine Color YELLOW Urine Appearance CLEAR CLEAR Urine pH 5.5 4.5-7.5 Urine Specific [place] 1.010 1.000-1.030 Urine Protein NEG NEG Urine Glucose (UA) NEG NEG Urine Ketones NEG NEG Urine Occult Blood NEG NEG Urine Nitrite NEG NEG Urine Bilirubin NEG NEG Urine Urobilinogen NEG NEG Urine Leukocyte Esterase NEG NEG Sodium Level 146 136-145 mmol/L Potassium Level 3.8 3.5-5.1 mmol/L Chloride Level 114 98-107 mmol/L Carbon Dioxide Level 27 21-32 mmol/L Anion Gap 5.0 3-11 mmol/L Blood Urea Nitrogen 14 7-18 mg/dl Creatinine 1.00 0.60-1.20 mg/dl Est Creatinine Clear Calc Drug Dose 68.6 ml/min Estimated GFR () 72.9 Estimated GFR (Non- 62.9 BUN/Creatinine Ratio 14.0 10-20 Random Glucose 115 70-99 mg/dl Calcium Level 8.3 8.5-10.1 mg/dl Total Bilirubin 0.2 0.2-1 mg/dl Direct Bilirubin < 0.1 0-0.2 mg/dl Aspartate Amino Transf (AST/SGOT) 19 15-37 U/L Alanine Aminotransferase (ALT/SGPT) 22 12-78 U/L Alkaline Phosphatase 89 45-117 U/L Total Creatine Kinase 99 26-192 U/L Creatine Kinase MB 3.0 0.5-3.6 ng/ml Creatine Kinase MB Ratio 3.0 0-3.0 Troponin I < 0.015 0-0.045 ng/ml Total Protein 6.9 6.4-8.2 gm/dl Albumin 3.2 3.4-5.0 gm/dl Lipase 115 73-393 U/L Thyroid Stimulating Hormone (TSH) 2.420 0.300-4.500 uIu/ml Human Chorionic Gonadotropin, Quant 2 mIU/mL Salicylates Level 5.0 2.8-20 mg/dl Urine Opiates Screen NEG NEG Urine Methadone, Qualitative NEG NEG Acetaminophen Level < 2 10-30 ug/ml Urine Barbiturates NEG NEG Urine Phencyclidine (PCP) Level NEG NEG Ur Amphetamine/Methamphetamine NEG NEG MDMA (Ecstasy) Screen POS NEG Urine Benzodiazepines Screen POS NEG Urine Cocaine Metabolite NEG NEG Urine Marijuana (THC) NEG NEG Ethyl Alcohol mg/dL < 3.0 0-3 mg/dl Ammonia 15.0 11-32 umol/L Arterial Blood pH 7.24 7.35-7.45 Arterial Blood Partial Pressure CO2 54 35-46 mmHg Arterial Blood Partial Pressure O2 313 80-95 mm/Hg Arterial Blood HCO3 23 19-24 mmol/L Arterial Blood Oxygen Saturation 99.8 90-95 % Arterial Blood Base Excess -5.2 -9-1.8 mEq/L Arterial Blood Gas Delivery 60% Cole Test POS POS Test 08/15/16 08:45 08/15/16 09:30 08/15/16 09:35 Range/Units Lactic Acid Level 0.8 0.4-2.0 mmol/L Microbiology Results 08/15/16 Blood Culture, Received Pending 08/15/16 Blood Culture, Received Pending Diagnostic Radiology CT SCAN OF THE BRAIN WITHOUT IV CONTRAST CLINICAL HISTORY: Fever. Sepsis. Unresponsive. COMPARISON STUDY: CT of the brain dated 03/17/2016. TECHNIQUE: Unenhanced axial CT scan of the brain is performed from the vertex to the skull base. Automated dose control exposure was utilized. CT DOSE: 614.27 mGy.cm FINDINGS: Brain parenchyma: The brain parenchyma is normal in appearance. There is no hemorrhage, mass effect, or evidence of acute territorial ischemia by CT criteria. Gill-white matter is preserved. No extra-axial fluid collection is seen. Ventricles, sulci, cisterns: Normal in configuration. Intracranial vasculature: The visualized intracranial vasculature at the skull base is normal in appearance. Calvarium: Unremarkable. Sinuses and mastoids: The visualized paranasal sinuses are clear. The mastoid air cells are well pneumatized. Orbits: The bony orbits are grossly intact. Soft tissues: A tongue piercing is noted. IMPRESSION: There is no hemorrhage, mass effect, or evidence of acute territorial ischemia by CT criteria. EKG sinus bradycardia with PACs, rate 53, no ST abnormality Impression Assessment and Plan UNRESPONSIVENESS Unclear etiology- possibly due to drug overdose- UDS + for benzo and MDMA- confirmations pending; alcohol neg Prior hx of overdose on Klonopin and marijuana in Mar 2016 Was hypothermic likely due to being in cold outdoor environment overnight No significant electrolyte abnormality No obvious infection; CXR no infiltrate; UA unremarkable; no leukocytosis, lactic acid negative; blood cultures pending Rule out seizure- check EEG Intubated in ER for airway protection ABG showed acidosis, CO2 elevated to 54; carbon monoxide negative Porcelain Technician consulted; discussed w/ Dr. Madrigal and Devin Juarez PALg Further recommendations per intensive care DEPRESSION/ ANXIETY On Xanax, Bupropion, and Effexor at home Hold PO meds for now DIASTOLIC CHF Appears euvolemic Hold home PRN furosemide FIBROMYALGIA On gabapentin and baclofen at home GERD Hold PO PPI and Carafate for now DVT PROPHYLAXIS Lovenox SQ DISPOSITION Lives with Sabas; who was updated by phone ([phone]) Patient seen in collaboration with Dr. Huddleston. Please see his addendum. ADDENDUM: This is a 56 year old female with PMH of depression/anxiety, fibromyalgia, hx. of gastric bypass presents to the ER after her found her unresponsive; they were camping in their yard she was found with vomitus, and incontinent of stool/urine she was brought here by EMS and found to be hypothermic and unresponsiveness she was intubated to protect her airway U-tox + for benzos has a hx. of overdose; last time she used Wellbutrin Takes small dose of Xanax at home; does not know if she overdosed on it Head CT = negative No other significant findings on labwork Porcelain Technician has seen the patient; patient to the ICU for vent management She has since been extubated will order an EEG May need neurology w/up VTE Prophylaxis VTE Risk Assessment Done? Y/N: Yes Risk Level: Moderate
[2016-08-15] MEDS: ENOXAPARIN 40 MG/0.4 ML SYR SQ SCH (13:52)
--- NOTE | 2016-08-15 14:04 | Critical Care Consultation ---
Critical Care Consultation Date of Consultation: Aug 15, 2016. Attending Physician: Cortes Huddleston DO Reason for Consultation: Patient intubated in ED for altered mental status History of Present Illness Attending: Dr. Madrigal This is a 56 yo female that was found to be unresponsive by her after camping outside over night. When he found her she was covered in emesis and was incontinent of stool and urine. On arrival in [facility] ED core temperature was 33.1 C. She was intubated and [laced on mechanical ventilation without difficulty. At the time of my examination, she was unresponsive and unable to provide history or ROS. No family members were present in [facility] ED. I unsuccessfully attempted to call her and left a voice mail message for him to call the ICU. She apparently was seen at [facility] 5 days ago with unilateral swelling to the side of her face and neck (unknown side) and was referred to the [facility] ED for testing but never appeared. Today is day #6 from time of first symptom. We have been contacted by the department of health and will be cooperating with them in the collection of buccal, blood, urine, and nasal specimens for testing. We have placed her on droplet precautions which are advised for 7 days from time of first symptom. The patient is waking up at this time and able to give limited history. She does report that she is on parole. She has history of gastric bypass in 2013. She reports early satiety. She also reports early inebriation with 2-3 sips of alcohol. She does state that last night she had vodka and flavored water. She also admits to taking at least 2-3 hits of marijuana. She also states that she took one extra baclofen and two extra Lyrica for back spasm and pain. She denies any other narcotic use or illicit drug use. She does have disorientation and repeats herself often. She currently denies shortness of breath, chest pain , palpitations, nausea, vomiting. She does report that she does have some bilious appearing sputum. She also reports some fecal incontinence and is requesting a nurse to help her clean up. She does have chronic GERD and reports that last night she has significant superior epigastric pain prior to going to bed. She also reports that she was on 3 L of supplemental oxygen via nasal cannula at bedtime. This was removed from the home yesterday as she was unable to complete required testing to maintain the oxygen or home. She does report that she does not have obstructive sleep apnea from prior polysomnography, only nocturnal hypoxia. The patient currently has no pain or reports of spasm but does have noted tremors in the upper and lower extremities not consistent with seizure. 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 marijuana use noted on prior admission. ), marijuana (patient reports marijuana use) Marital Status: Housing Status: lives with significant other Occupation Status: unemployed Allergies Coded Allergies: Codeine (Verified Allergy, Intermediate, DIARRHEA/RASH,TOLERATES PERCOCET , 06/19/16) TOLERATES PERCOCET Clonazepam (Verified Allergy, Unknown, "PASS OUT", 06/19/16) NSAIDs (Verified Allergy, Unknown, UNKNOWN, 06/19/16) Sulfamethoxazole w/Trimethoprim (Verified Adverse Reaction, Intermediate, DELIRIUM, 06/19/16) pt devoped invontary muscle spasm ; Aspirin (Verified Adverse Reaction, Unknown, STOMACH IRRITATION, 06/19/16) Cephalexin (Verified Adverse Reaction, Unknown, GI SYMPTOMS, 06/19/16) UPSET STOMACH Hydrocodone (Verified Adverse Reaction, Unknown, OVESEDATION, 05/29/16) Hydromorphone (Verified Adverse Reaction, Unknown, weakness,sweating, 05/29) Home Medications Scheduled Acetaminophen/Diphenhydramine (Tylenol Pm), 3 TAB PO HS Baclofen (Lioresal), 5 MG PO BID Bupropion HCl (Bupropion HCl), 100 MG PO QAM Cyanocobalamin (Cyanocobalamin), 1,000 MCG INJ MONTHLY Omeprazole (Prilosec), 20 MG PO BID Pediatric Multiple Vitamins W/ (Flintstones Plus Iron), 2 TAB PO QAM Pregabalin (Lyrica), 100 MG PO TID Sucralfate (Carafate), 1 GM PO QID Venlafaxine Hcl (Effexor), 75 MG PO BID Scheduled PRN Albuterol Hfa (Ventolin Hfa), 2 PUFFS INH Q6H PRN for SOB/Wheezing Alprazolam (Xanax), 0.25 MG PO BID PRN for Anxiety Furosemide (Lasix), 40 MG PO DAILY PRN for swelling Current Inpatient Medications Current Inpatient Medications Medications (Trade) Dose Ordered Sig/Gabriel Route Start Time Stop Time Status Last Admin Dose Admin Enoxaparin Sodium (Lovenox Inj) 40 mg DAILY SQ 08/15/16 13:00 09/14/16 12:59 08/15/16 13:52 40 MG Review of Systems A total of 12 systems was reviewed and is negative other than as listed above in the HPI Physical Exam Date Time Temp Pulse Resp B/P Pulse Ox O2 Delivery O2 Flow Rate FiO2 08/15/16 13:15 69 14 116/57 93 Nasal Cannula 3.0 08/15/16 12:10 36.5 83 22 159/99 93 Room Air 08/15/16 11:48 78 22 171/94 100 08/15/16 11:36 78 22 161/100 100 Nasal Cannula 4.0 08/15/16 10:45 54 16 144/89 100 Mechanical Ventilator 60 08/15/16 10:05 48 18 147/101 100 Mechanical Ventilator 60 08/15/16 09:43 33.4 51 16 140/100 100 Mechanical Ventilator 60 08/15/16 09:00 56 16 148/87 100 60 08/15/16 08:55 45 16 148/87 100 Mechanical Ventilator 60 08/15/16 08:45 45 16 137/87 100 Mechanical Ventilator 60 08/15/16 08:41 47 16 136/87 100 Mechanical Ventilator 60 08/15/16 08:35 50 12 142/87 100 Mechanical Ventilator 60 08/15/16 08:26 52 12 139/81 100 Mechanical Ventilator 60 08/15/16 08:20 70 08/15/16 08:20 56 13 159/96 100 Mechanical Ventilator 60 08/15/16 08:12 59 12 152/102 100 Mechanical Ventilator 60 08/15/16 07:52 56 12 186/107 100 Mechanical Ventilator 60 08/15/16 07:47 49 12 178/99 100 Mechanical Ventilator 60 08/15/16 07:40 100 08/15/16 07:28 49 10 120/71 100 Non-Rebreather 15.0 08/15/16 06:53 100 Room Air 08/15/16 06:48 100 Room Air 08/15/16 06:44 55 08/15/16 06:38 33.1 54 24 171/89 100 Room Air GENERAL : No acute distress. Patient with generalized tremors their periodic and not coordinated bilaterally EYES: No icterus, gaze conjugate. Pupils equal and reactive to light. No nystagmus NOSE: No evidence of epistaxis. Evidence of epistaxis and right nares suspect be secondary to nose stud MOUTH: No lesions or candidiasis. No evidence of blood. Tongue is midline. NECK: Supple. No stridor or bruits LUNGS: CTA B/L, no wheezes, rales or rhonchi HEART: Regular, rate controlled ABDOMEN: Soft, NT, ND, BS Present in all 4 quadrants EXTREMITIES: No LE edema, pedal pulses intact NEURO: A&OX3 but with some need for reorientation. Laboratory Results Last 24 Hours Test 08/15/16 06:46 08/15/16 06:50 08/15/16 06:59 08/15/16 08:00 Bedside Glucose 111 mg/dl White Blood Count 5.29 K/uL Red Blood Count 4.41 M/uL Hemoglobin 13.5 g/dL Hematocrit 41.3 % Mean Corpuscular Volume 93.7 fL Mean Corpuscular Hemoglobin 30.6 pg Mean Corpuscular Hemoglobin Concent 32.7 g/dl Platelet Count 215 K/uL Mean Platelet Volume 9.6 fL Neutrophils (%) (Auto) 65.9 % Lymphocytes (%) (Auto) 27.0 % Monocytes (%) (Auto) 4.0 % Eosinophils (%) (Auto) 2.1 % Basophils (%) (Auto) 0.8 % Neutrophils # (Auto) 3.49 K/uL Lymphocytes # (Auto) 1.43 K/uL Monocytes # (Auto) 0.21 K/uL Eosinophils # (Auto) 0.11 K/uL Basophils # (Auto) 0.04 K/uL RDW Standard Deviation 52.9 fL RDW Coefficient of Variation 15.4 % Immature Granulocyte % (Auto) 0.2 % Immature Granulocyte # (Auto) 0.01 K/uL Prothrombin Time 11.0 SECONDS Prothromb Time International Ratio 1.0 Activated Partial Thromboplast Time 25.4 SECONDS Partial Thromboplastin Ratio 1.0 Urine Color YELLOW Urine Appearance CLEAR Urine pH 5.5 Urine Specific Solen 1.010 Urine Protein NEG Urine Glucose (UA) NEG Urine Ketones NEG Urine Occult Blood NEG Urine Nitrite NEG Urine Bilirubin NEG Urine Urobilinogen NEG Urine Leukocyte Esterase NEG Sodium Level 146 mmol/L Potassium Level 3.8 mmol/L Chloride Level 114 mmol/L Carbon Dioxide Level 27 mmol/L Anion Gap 5.0 mmol/L Blood Urea Nitrogen 14 mg/dl Creatinine 1.00 mg/dl Est Creatinine Clear Calc Drug Dose 68.6 ml/min Estimated GFR () 72.9 Estimated GFR (Non- 62.9 BUN/Creatinine Ratio 14.0 Random Glucose 115 mg/dl Osmolality 303 mOsm/kg Calcium Level 8.3 mg/dl Total Bilirubin 0.2 mg/dl Direct Bilirubin < 0.1 mg/dl Aspartate Amino Transf (AST/SGOT) 19 U/L Alanine Aminotransferase (ALT/SGPT) 22 U/L Alkaline Phosphatase 89 U/L Total Creatine Kinase 99 U/L Creatine Kinase MB 3.0 ng/ml Creatine Kinase MB Ratio 3.0 Troponin I < 0.015 ng/ml Total Protein 6.9 gm/dl Albumin 3.2 gm/dl Lipase 115 U/L Thyroid Stimulating Hormone (TSH) 2.420 uIu/ml Human Chorionic Gonadotropin, Quant 2 mIU/mL Salicylates Level 5.0 mg/dl Urine Opiates Screen NEG Urine Methadone, Qualitative NEG Acetaminophen Level < 2 ug/ml Urine Barbiturates NEG Urine Phencyclidine (PCP) Level NEG Ur Amphetamine/Methamphetamine NEG MDMA (Ecstasy) Screen POS Urine Benzodiazepines Screen POS Urine Cocaine Metabolite NEG Urine Marijuana (THC) NEG Ethyl Alcohol mg/dL < 3.0 mg/dl Ammonia 15.0 umol/L Arterial Blood pH 7.24 Arterial Blood Partial Pressure CO2 54 mmHg Arterial Blood Partial Pressure O2 313 mm/Hg Arterial Blood HCO3 23 mmol/L Arterial Blood Oxygen Saturation 99.8 % Arterial Blood Base Excess -5.2 mEq/L Arterial Blood Gas Delivery 60% Cole Test POS Test 08/15/16 08:45 08/15/16 09:30 Lactic Acid Level 0.8 mmol/L Carboxyhemoglobin 0.0 % [facility] Diagnostic Results SINGLE VIEW CHEST CLINICAL HISTORY: Fever. Sepsis. FINDINGS: An AP, portable, semierect chest radiograph is compared to study dated 06/19/2016 and correlated with chest CT dated 03/18/2016. The examination is degraded by portable technique, motion artifact, and patient rotation. An endotracheal tube has been placed. The tip projects just below the thoracic inlet approximately 4.5 cm above the slime. The cardiomediastinal silhouette is unremarkable. There is mild prominence of the pulmonary vessels. Chronic interstitial thickening is similar to previous. No airspace consolidation or large pleural effusion is identified. No pneumothorax is seen. The skeletal structures are osteopenic. Degenerative change is noted throughout the thoracic spine. IMPRESSION: 1. No airspace consolidation or pleural effusion is identified. 2. There is mild prominence the central pulmonary vessels, possibly related to positioning. Correlate clinically for evidence of mild congestion. 3. The endotracheal tube projects 4.5 cm above the slime. CT SCAN OF THE BRAIN WITHOUT IV CONTRAST CLINICAL HISTORY: Fever. Sepsis. Unresponsive. COMPARISON STUDY: CT of the brain dated 03/17/2016. TECHNIQUE: Unenhanced axial CT scan of the brain is performed from the vertex to the skull base. Automated dose control exposure was utilized. CT DOSE: 614.27 mGy.cm FINDINGS: Brain parenchyma: The brain parenchyma is normal in appearance. There is no hemorrhage, mass effect, or evidence of acute territorial ischemia by CT criteria. Gill-white matter is preserved. No extra-axial fluid collection is seen. Ventricles, sulci, cisterns: Normal in configuration. Intracranial vasculature: The visualized intracranial vasculature at the skull base is normal in appearance. Calvarium: Unremarkable. Sinuses and mastoids: The visualized paranasal sinuses are clear. The mastoid air cells are well pneumatized. Orbits: The bony orbits are grossly intact. Soft tissues: A tongue piercing is noted. IMPRESSION: There is no hemorrhage, mass effect, or evidence of acute territorial ischemia by CT criteria. Assessment & Plan ACUTE RESPIRATORY FAILURE Patient found to be unresponsive Required endotracheal intubation Mechanical ventilation initiated Able to successfully extubated patient Currently oxygenating well on room air History of nocturnal hypoxia Continue supplemental O2 at 3 L/m at bedtime Continue to monitor Chest x-ray with no evidence of infiltrate or consolidation No chest pain or tightness NEURO Unresponsiveness / altered mental status Although tox screen was negative, patient admits to EtOH use last night Since gastric bypass, patient states that she only requires 2-3 sips of vodka and becomes inebriated Patient also admits to taking hits from her 's bowl last night. Although she thinks that it was marijuana, she can not be certain Patient is now awake and answering questions appropriately Unclear if this is due to substance abuse the patient is now awake and alert and oriented 3 EEG is pending Following tidal CO2 ELECTROLYTES Sodium 146, potassium 3.8, calcium 8.3 Advance diet with clear liquids and advance as tolerated Follow serial labs NUTRITION History of gastric bypass with John-en-Y in 2013 Albumin 3.2 Advance diet as tolerated CARDIAC No elevation in troponin EKG with normal sinus rhythm with no ST changes Hemodynamically stable No chest pain or tightness Furosemide 40 mg by mouth daily as needed at home - hold for now Normal sinus rhythm Continue to monitor PSYCH Patient uses alprazolam, venlafaxine at home Continue home meds GI Patient with history of gastric reflux Omeprazole 20 mg by mouth twice a day at home Pantoprazole while inpatient CHRONIC PAIN SYNDROME / FIBROMYALGIA Patient uses baclofen 5 mg PO twice a day at home - patient states that she took one next or baclofen last night due to back spasm Patient also uses Lyrica 100 mg PO 3 times a day - she states that she took two additional capsules last night May consider outpatient pain management consult for better medication management as he additional medications may of contributed to her altered mental status RENAL BUN 14 Creatinine 1.0 GFR 62.9 Advance diet as tolerated Monitor serial labs ETHANOL ABUSE Patient states that she consumes small amounts of vodka throughout the week AST 19, a LT 22, alkaline phosphatase 89, lipase 1:15 Continue multivitamin TOBACCO ABUSE Discussed need for smoking cessation SUBSTANCE ABUSE Discussed need for complete abstinence from marijuana and other illicit substances ID Afebrile Hypothermic on admission secondary to exposure overnight Now normothermic No elevation WBC Continue to monitor DVT PROPHYLAXIS Heparin subcutaneous TERRY hose, SCDs CCT: 40 minutes including evaluation in the emergency department and immediately following extubation as well as chart review and discussion with family, patient, care team Thank you for including us in the care of this patient. Please refer to Dr. Madrigal's addendum for further recommendations I have personally evaluated and examined this patient. I agree with assessment and plan of Simone Juarez PA-C. I was consult in by the emergency department and saw the patient there. At that time she had an acute encephalopathy of unclear etiology, it did not appear that she had ingested any life-threatening intoxicants i.e. no high gap metabolic acidosis for toxic alcohols, salicylates and Tylenol was unremarkable. I was concerned that the patient could've suffered a hypoxic injury secondary to possible obstructive sleep apnea versus obesity hypoventilation syndrome. Due to high patient senses and limited nurse staffing ratios patient remained in the emergency department without additional staff is being obtained for her critical care admission. During this time she cleared her toxic encephalopathy and was successfully extubated in the emergency department. She was shortly transferred to the ICU for continued post extubation monitoring. Patient cleared rather quickly is conversant able to angulate her up to room and stable for downgrade to telemetry status.
[2016-08-15] MEDS ORDERED: ALBUTEROL HFA 8 GM INHALER INH PRN (18:30)
[2016-08-15] MEDS ORDERED: FLINTSTONES COMPLETE CHEWABLE TAB PO ONE (19:00)
[2016-08-15] MEDS ORDERED: THIAMINE HCL 100 MG TAB PO ONE (19:00)
[2016-08-15] MEDS ORDERED: PANTOprazole SOD 40 MG TAB PO ONE (19:00)
[2016-08-15] MEDS: BACLOFEN 10 MG TAB PO SCH (20:42)
[2016-08-15] MEDS: VENLAFAXINE HCL 37.5 MG TAB PO SCH (20:42)
[2016-08-15] MEDS: PREGABALIN 100 MG CAP PO SCH (20:42)
[2016-08-16] VITALS (9 sets, daily range): BP systolic 104–132; BP diastolic 56–81; PULSE 71–96; TEMP 36.7–37.3; O2SAT 93–100
[2016-08-16 05:50] LABS: BASO % 0.6 %; BASO ABS # 0.04 K/uL (0-0.2); COMPLETE YES; EOS % 3.3 %; HEMATOCRIT 35.7 % (37-47); IG% 0.1 %; LYMPH % 28.1 %; LYMPH ABS # 2.04 K/uL (1.2-3.4); MEAN CELL VOLUME 94.4 fL (80-100); MEAN CORPUSCULAR HEMOGLOBIN 30.2 pg (25-34); MEAN CORPUSCULAR HGB CONC 31.9 g/dl (32-36); MEAN PLATELET VOLUME 10.3 fL (7.4-10.4); MONO % 7.9 %; PLATELET COUNT 221 K/uL (130-400); RED BLOOD COUNT 3.78 M/uL (4.2-5.4); WHITE BLOOD COUNT 7.25 K/uL (4.8-10.8)
[2016-08-16 06:22] LABS: BUN/CREATININE RATIO 8.3 (10-20); CALCIUM 7.8 mg/dl (8.5-10.1); CREATININE 0.93 mg/dl (0.60-1.20); MAGNESIUM 1.7 mg/dl (1.8-2.4); POTASSIUM 3.5 mmol/L (3.5-5.1)
[2016-08-16] MEDS: ENOXAPARIN 40 MG/0.4 ML SYR SQ SCH (08:23)
[2016-08-16] MEDS: PREGABALIN 100 MG CAP PO SCH ×3 (08:23→21:00)
[2016-08-16] MEDS: PANTOprazole SOD 40 MG TAB PO SCH (08:23)
[2016-08-16] MEDS: VENLAFAXINE HCL 37.5 MG TAB PO SCH ×2 (08:23→21:09)
[2016-08-16] MEDS: MULTIVITAMIN TAB PO SCH (08:24)
[2016-08-16] MEDS: BACLOFEN 10 MG TAB PO SCH ×2 (08:24→21:00)
[2016-08-16] MEDS: THIAMINE HCL 100 MG TAB PO SCH (08:24)
[2016-08-16] MEDS ORDERED: FLINTSTONES COMPLETE CHEWABLE TAB PO SCH (09:00)
[2016-08-16] MEDS ORDERED: NURSING VERBAL MED ORDER ONE (11:00)
[2016-08-16] MEDS ORDERED: ACETAMINOPHEN 325 MG TAB PO PRN (11:30)
[2016-08-16] MEDS ORDERED: SUCCINYLCHOLINE CHLORIDE 20 MG/ML 10 ML VIAL IV ONE (14:25)
[2016-08-16] MEDS ORDERED: ETOMIDATE 2 MG/ML 20 ML VIAL IV ONE (14:25)
--- NOTE | 2016-08-16 15:01 | ELECTROENCEPHALOGRAPH REPORT ---
REQUESTED BY: Seema Carlisle PA-C. CLINICAL DIAGNOSIS: Seizures, possible withdrawal and cause. ELECTROENCEPHALOGRAM DIAGNOSIS: Essentially normal during wakefulness. DESCRIPTION OF TRACING: This EEG was done as a bedside recording and is of reasonable technical quality. A simultaneous video analysis of patient moved and behavior however does show quite a bit of muscle movement artifact which is reflected on the EEG. Between these episodes however the tracing is interpretable and reveals evidence for a background rhythm in the alpha range of up to 9 Hz of maximum frequency and 30 microvolts of maximum amplitude. This activity is bilaterally symmetrical in maximum posterior head regions. Polymorphic mid frequency theta activity is seen over all head regions without clear focal or regional predominance. Anterior head region maximum bilaterally symmetrical low voltage fast activity in the beta range is present. Photic stimulation provoked some modest driving response in the posterior head region without focal myogenic or photoparoxysmal component. Hyperventilation was not performed. Drowsiness and light sleep were not recorded. At no time during the tracing is there unequivocal evidence for potentially epileptogenic activity in the form of polyspike or spike wave bursts, focal sharp waves or focal spikes. INTERPRETATION: This EEG is essentially normal during wakefulness without evidence for focal or generalized encephalopathy and without evidence for potentially epileptogenic activity.
--- NOTE | 2016-08-16 20:45 | Progress Note ---
Internal Med Progress Note Date of Service: Aug 16, 2016. Provider Documentation: SUBJECTIVE: awake and alert , conversing eating cream cheese and crackers brought by no confusion , no SOB or cough in room air conversing appropriately does not recall what happened yesterday that brought her to ED OBJECTIVE: Vital Signs-as noted below Exam: General-no sign of distress Eyes-sclera non icteric ENT-NAD Neck-no JVD Lungs-CTA ,no wheeze or rales Heart-regular S1/S2 Abdomen-soft, non tender Extremities-no lower ext edema Neuro-AAO x3, no focal neurological deficit Lab data as noted below. ASSESSMENT & PLAN: UNRESPONSIVENESS resolved, awake and alert today , conversing does not recall the event , denies of taking extra medications Differentials - possibly due to drug overdose- UDS + for benzo and MDMA- ; alcohol neg Prior hx of overdose on Klonopin and marijuana in Mar 2016 CT head negative change No obvious infection; CXR no infiltrate; UA unremarkable; no leukocytosis, lactic acid negative; EEG-negative for Sz Intubated in ER for airway protection Extubated now in room air no respiratory depression pt is concern for possible Seizure -neuro consult requested DEPRESSION/ ANXIETY On Xanax, Bupropion, and Effexor at home presented with possible over dose prior hx of OD as well Psych consult requested FIBROMYALGIA On gabapentin and baclofen at home DVT PROPHYLAXIS low risk SCD and teds ambulate DISPOSITION Lives with [facility]; stable to transfer to medical floor possible discharge home tomorrow pt is counselled repeatedly regarding life threatening risk with Drug OD / combining multiple sedatives/antidepressant with Alcohol Vital Signs: Date Time Temp Pulse Resp B/P Pulse Ox O2 Delivery O2 Flow Rate FiO2 08/16/16 20:35 Room Air 08/16/16 19:40 37.3 85 22 128/74 97 Room Air 08/16/16 16:32 Room Air 08/16/16 15:53 36.9 72 22 132/74 93 Room Air 08/16/16 12:13 36.7 74 18 115/81 96 08/16/16 12:00 Room Air 08/16/16 08:13 37.0 71 16 114/71 97 Room Air 08/16/16 08:00 100 Room Air 08/16/16 04:00 100 Room Air 08/16/16 03:43 36.9 71 18 104/62 100 Room Air 08/16/16 00:01 36.9 96 18 104/56 96 Room Air 08/16/16 00:00 100 Room Air 08/15/16 21:11 36.9 64 19 114/62 99 Room Air Lab Results: Results Past 24 Hours Test 08/16/16 05:30 Range/Units White Blood Count 7.25 4.8-10.8 K/uL Red Blood Count 3.78 4.2-5.4 M/uL Hemoglobin 11.4 12.0-16.0 g/dL Hematocrit 35.7 37-47 % Mean Corpuscular Volume 94.4 80-100 fL Mean Corpuscular Hemoglobin 30.2 25-34 pg Mean Corpuscular Hemoglobin Concent 31.9 32-36 g/dl Platelet Count 221 130-400 K/uL Mean Platelet Volume 10.3 7.4-10.4 fL Neutrophils (%) (Auto) 60.0 % Lymphocytes (%) (Auto) 28.1 % Monocytes (%) (Auto) 7.9 % Eosinophils (%) (Auto) 3.3 % Basophils (%) (Auto) 0.6 % Neutrophils # (Auto) 4.35 1.4-6.5 K/uL Lymphocytes # (Auto) 2.04 1.2-3.4 K/uL Monocytes # (Auto) 0.57 0.11-0.59 K/uL Eosinophils # (Auto) 0.24 0-0.5 K/uL Basophils # (Auto) 0.04 0-0.2 K/uL RDW Standard Deviation 54.1 36.4-46.3 fL RDW Coefficient of Variation 15.6 11.5-14.5 % Immature Granulocyte % (Auto) 0.1 % Immature Granulocyte # (Auto) 0.01 0.00-0.02 K/uL Sodium Level 146 136-145 mmol/L Potassium Level 3.5 3.5-5.1 mmol/L Chloride Level 115 98-107 mmol/L Carbon Dioxide Level 25 21-32 mmol/L Anion Gap 6.0 3-11 mmol/L Blood Urea Nitrogen 8 7-18 mg/dl Creatinine 0.93 0.60-1.20 mg/dl Est Creatinine Clear Calc Drug Dose 70.0 ml/min Estimated GFR () 79.6 Estimated GFR (Non- 68.7 BUN/Creatinine Ratio 8.3 10-20 Random Glucose 146 70-99 mg/dl Calcium Level 7.8 8.5-10.1 mg/dl Magnesium Level 1.7 1.8-2.4 mg/dl
[2016-08-17 00:12] VITALS: BP 136/87; PULSE 66; TEMP 36.7; O2SAT 98
[2016-08-17 06:01] LABS: BASO % 0.9 %; BASO ABS # 0.06 K/uL (0-0.2); COMPLETE YES; EOS % 4.8 %; HEMATOCRIT 33.8 % (37-47); IG% 0.1 %; LYMPH % 39.8 %; LYMPH ABS # 2.73 K/uL (1.2-3.4); MEAN CELL VOLUME 94.2 fL (80-100); MEAN CORPUSCULAR HEMOGLOBIN 30.9 pg (25-34); MEAN CORPUSCULAR HGB CONC 32.8 g/dl (32-36); MEAN PLATELET VOLUME 10.2 fL (7.4-10.4); MONO % 9.2 %; NEUT % 45.2 %; PLATELET COUNT 228 K/uL (130-400); RED BLOOD COUNT 3.59 M/uL (4.2-5.4); WHITE BLOOD COUNT 6.86 K/uL (4.8-10.8)
[2016-08-17 06:23] LABS: BUN/CREATININE RATIO 9.8 (10-20); CALCIUM 8.2 mg/dl (8.5-10.1); CREATININE 0.89 mg/dl (0.60-1.20); POTASSIUM 3.8 mmol/L (3.5-5.1)
[2016-08-17 07:17] VITALS: BP 133/83; PULSE 68; TEMP 36.7; O2SAT 98
[2016-08-17] MEDS: PANTOprazole SOD 40 MG TAB PO SCH (07:29)
[2016-08-17] MEDS: MULTIVITAMIN TAB PO SCH (07:29)
[2016-08-17] MEDS: THIAMINE HCL 100 MG TAB PO SCH (07:29)
[2016-08-17] MEDS: VENLAFAXINE HCL 37.5 MG TAB PO SCH ×2 (07:30→20:17)
[2016-08-17] MEDS: ENOXAPARIN 40 MG/0.4 ML SYR SQ SCH (07:31)
--- NOTE | 2016-08-17 12:22 | CONSULTATION REPORT ---
DATE OF CONSULTATION: 08/17/[address] Bach. Alvina is 56-year-old. She is regularly followed by Dr. Kvng Ceron and has a number of underlying medical issues and psychiatric issues. She has had congestive heart failure. She has anxiety, depression, dyslipidemia, fibromyalgia, gastroesophageal reflux, apparently a sleep disturbance of uncertain type, restless leg syndrome and surgically has had gastric bypass, arthroscopic surgery of her knees and appendectomy and bronchoscopy and is status post EGD, revealing some small ulcers at the site of her gastric bypass in 2014. In that setting, she was brought into the hospital on after having been found by her out in a tent in the backyard, covered with emesis and in a very diminished responsive state. Apparently she had some jerking movements during sleep that night and had apparently consumed some ethanol and small amounts of marijuana in addition to taking apparently an extra Lyrica for her pain. Otherwise, she states that she has been taking her medications regularly. PAST MEDICAL HISTORY: Does indicate that in March 2016, she took Klonopin and marijuana overdose but did not have any seizures at that time nor is there a history of a seizure disorder. MEDICATIONS: She currently is scheduled to take a number of medications including acetaminophen, diphenhydramine as needed for sleep at night, baclofen 5 mg twice a day, bupropion 100 mg in the morning, omeprazole, multivitamins, pregabalin 100 mg 3 times a day, sucralfate and Effexor. She claims she has access to tramadol though I do not see it on her record. PRN medications include albuterol, alprazolam, and furosemide. ALLERGIES: SHE CLAIMS ALLERGIES TO CODEINE, CLONAZEPAM, NONSTEROIDALS, BACTRIM, ASPIRIN, CEPHALEXIN, HYDROCODONE, AND HYDROMORPHONE. SOCIAL HISTORY: Reveals her to be . She does consume ethanol. She apparently does consume marijuana somewhat irregularly and I believe is a former smoker. FAMILY HISTORY: Noncontributory. REVIEW OF SYSTEMS: Systems review reveals no new systemic illnesses. There was some facial swelling alluded to by Devin Juarez who was in charge of her in the ICU after she was admitted and intubated and subsequently extubated but I am not clear what happened with this. Otherwise, her weight has been stable. She denies any other issues referable to head, eyes, ears, nose and throat. She does describe a headache after her awakening from her stuporous state and being extubated but this has passed. She has had no cardiovascular, pulmonary, gastrointestinal, genitourinary or musculoskeletal issues other than her chronic pain from fibromyalgia and neurologically she has never had a seizure. PHYSICAL EXAMINATION: On admission is as recorded on the admission note. NEUROLOGIC: On exam today, she is awake, alert, oriented in 3 spheres. Has normal extraocular movements. Clear speech. Normal facial motility and strength. Normal facial sensation. Gait is grossly intact without any ataxia or spasticity. There is no tremor, tics, or choreiform activity. Reflexes are a little hypoactive, but present. Toes are down. Strength is excellent. Sensation grossly is intact to light touch and vibration. She was subsequently intubated and was briefly on ventilatory support. CAT scans were negative. Basic labs were unremarkable, specifically the CPK was normal and subsequently an EEG has been done and normal, although there was quite a bit of muscle movement artifact that colored the interpretation of tracing. I have discussed her case with Dr. Bach. It sounds as though she had potentially a seizure in the tent. It is hard to know what precipitated this. She is on Wellbutrin which possibly could have lowered the seizure threshold. She is also on medications that should control seizures. Among them are benzodiazepines, which she has been taking regularly and the Lyrica which she is on a reasonable dose range for seizure control. In light of the unknown nature of this event, we are going to have her not operate a motor vehicle until seen by neurology. She needs to go over her medications with her psychiatrist. We are going to get an outpatient more prolonged EEG, hopefully which will be more free of muscle movement artifact and review things when we see her in the office. We may never explain this event, but at this point I think the working diagnosis is an unwitnessed or poorly witnessed seizure, likely due to toxic exposure but otherwise unexplained type. MTDD
--- NOTE | 2016-08-17 14:18 | PSYCHIATRIC CONSULTATION ---
DATE OF CONSULTATION: 08/17/2016 IDENTIFYING INFORMATION: This is a 56-year-old female who is known to our psychiatric consultation service from previous psychiatric consultation performed by Taylor Anderson, which sounds to have been in the setting of similar circumstances in March 2016. Consultation requested for history of depression and possible drug overdose. CHIEF COMPLAINT: "I don?t know what happened. Last thing I remember I was crawling into the tent." HISTORY OF PRESENT ILLNESS: The patient brought in by ambulance following being found unresponsive. reported that the patient was in normal state of health the day prior to presentation, that they were camping in the backyard overnight which is something that they do commonly and she had an episode of diffuse body shaking overnight and then was minimally responsive when he tried to wake her, breathing abnormally, had dry heaves. He called 911, Narcan showed no effect, blood sugar normal on presentation, covered in emesis and incontinent of bowel and bladder in the ER, hypothermic and EKG showed sinus bradycardia with PACs, respirations 10 per minute, poor gag. The patient was intubated. reported Xanax 0.25 mg recently increased by psychiatrist b.i.d. and believes she took her typical 2 tabs the day prior. It was noted that the patient was hospitalized in March 2016 for overdose of Klonopin and marijuana. Seizure history was denied. The patient has subsequently been extubated and EEG yesterday did not show seizure activity. On interview this morning, the patient adamantly denies that she made a self-harm attempt yesterday. She reports that she is a devout Jewish and does not want to go to hell and this is highly protective regarding prevention of self-injury. She denies feeling suicidal. She denies recent negative trend in mood and denies recently feeling depressed. She does describe stress at home associated with financial strain. She reports regular followup with her outpatient psychiatrist and remains on Effexor and Wellbutrin, which she has been on for some time. She reports that Xanax 0.25 mg b.i.d. p.r.n. was started a few months ago for panic attacks, but was increased to b.i.d. standing dose about 1 month ago. She states "I think maybe it was a little too much." She denies taking any p.r.n. use on top of the standing dose. She denies taking any more of the Xanax than she has been prescribed. She denies acute discord between she and and feels well supported by him. She has been in the habit of taking 4 [id number] Tylenol PM tablets at bedtime for about 1 year for sleep. She notes that she had previously been treated with Ambien and has had more sleep disturbance after previously being treated with opiates for fibromyalgia. She admits that she took "3 sips" of an alcoholic beverage on the night of her presentation and also took a "couple puffs" of marijuana on that same night prior to crawling into the tent. She reports last marijuana use was about 1 year ago. She expresses worry that she is on probation and will get in trouble for the substance use, which may be limiting her willingness to divulge full history today. She reports that she sees her outpatient psychiatrist monthly and he does not provide additional refill on her medications. PAST PSYCHIATRIC HISTORY: The patient follows with Dr. Black whom she sees towards the beginning of every month and was compliant with her followup earlier this month per her report. She denies a history of psychiatric hospitalization. She denies a history of self-harm attempts. She reports her does have a case management assistant who has been giving her some assistance regarding their financial strain seeking out local resources. HOME MEDICATIONS: Tylenol PM, baclofen, Wellbutrin 100 mg p.o. q.a.m., cyanocobalamin injection monthly, omeprazole, pregabalin 100 mg t.i.d., Carafate, Effexor 75 mg b.i.d. PAST MEDICAL HISTORY: COPD, congestive heart failure, fibromyalgia, GERD, dyslipidemia, hypertension, nocturnal hypoxemia, obstructive sleep apnea, restless legs syndrome, obesity, status post gastric bypass; tobacco use, history of appendectomy, history of bronchoscopy, history of EGD. FAMILY HISTORY: Unknown secondary to history of adoption. SUBSTANCE ABUSE HISTORY: The patient has previously reported occasional sips of alcohol, which she reports similarly again today. She does endorse occasional marijuana use again and did use marijuana on the night prior to presentation, but reports had not previously used marijuana for 1 year prior to that. She denies recreational drugs and denies misuse of Ultram and believes she last used that about 1 month ago. ALLERGIES: CODEINE, NSAIDs, BACTRIM, ASPIRIN, CEPHALEXIN, HYDROCODONE, HYDROMORPHONE. PERSONAL HISTORY: to second . 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 Lives with in [place], no children, multiple dogs. On probation for wielding a knife towards in June of last year. MENTAL STATUS EXAMINATION: The patient is an overweight female wearing [employer] pajamas in no acute distress, pleasant and cooperative on interview, makes good eye contact, largely; however, she does look off to the side and avert her gaze on answering some questions about substance use. Motor activity unremarkable. Speech clear. Normal rate, volume, and tone. She does not appear to be intoxicated. Affect is actually relatively full. She smiles and laughs appropriately. She does not appear overtly depressed or anxious. She describes her mood as normal. Thought process logical and goal directed. Thought content negative for suicidal or homicidal ideation or delusions. She does not appear to be responding to internal stimuli. She is fully oriented. Memory is grossly intact in all spheres, with the exception of events on evening prior to presentation following lying down for bed in the tent that evening. Intelligence appears to be fairly average. Insight and judgment fair. VITAL SIGNS: This morning temperature is 36.7, pulse 68, respirations 18, blood pressure 133/83, pulse ox 98 on room air. LABORATORIES AND STUDIES: CBC this morning showed no leukocytosis. Hemoglobin and hematocrit were low at 11.1 and 38.8 respectively, platelets 228. Chem panel shows a normal sodium, potassium, BUN, creatinine, EGFR was 84, glucose 79, calcium low at 8.2, mag normal at 2.0. Tox panel was negative apart from MDMA which was likely a false positive secondary to Wellbutrin and benzodiazepines. EEG performed yesterday showed lot of muscle artifact without evidence of obvious epileptogenic activity; however, Dr. Hinton has recommended a more prolonged EEG as an outpatient and suspects possible seizure overnight based on her presenting symptoms. ASSESSMENT: This is a 56-year-old woman with a history of depression and anxiety who has previously experienced similar episode on Klonopin and marijuana. Cannot rule out possibility of seizure overnight which is being further explored by neurology. This does not appear to be a self-harm attempt. Cannot rule out possibility of overuse of prescribed medications for recreational use. DIAGNOSES: Panic disorder, provisional; major depressive disorder, recurrent, mild per history. PLAN: 1. Regarding the patient's medications, we did discuss the possibility that given her history of hypoxemia and similar episode in the past, she may be sensitive to the respiratory slowing effects of combining multiple sedative medications including the alprazolam, diphenhydramine, Lyrica, marijuana and alcohol. I did advise her to discontinue the Xanax and seek alternative anxiolytic treatment with her outpatient psychiatrist. She has not been on Xanax long enough and her dose is low enough that her risk for withdrawal should be quite low and we did review the signs and symptoms of benzodiazepine withdrawal to watch for. 2. Suggested consideration for a less activating antidepressant regimen given her anxiety is recently more distressing to her than depression. She is on an SNRI plus Wellbutrin. Perhaps an SSRI would be less stimulating and more generally effective. We also discussed alternative interventions for her sleep such as low dose trazodone. I advised her to discontinue her practice of taking high dose over the counter diphenhydramine for sleep at night. She was also advised to discontinue alcohol and marijuana. 3. Reviewed that she does have a standing appointment with outpatient psychiatrist, Dr. Black, monthly and has provided no additional refills during those appointments. I encouraged her to sign release of information for sharing of medical records with him prior to her next followup appointment. 4. No acute safety concerns appreciated regarding suicidal intention at this time and the patient is able to convincingly contract for safety and denies suicidal ideation, homicidal ideation or self-injurious impulses. 5. Reviewed potential seizure lowering impact of bupropion. Her dose of that medication is relatively low and likely has negligible impact on seizure threshold at that dose; however, if she was found to have a seizure disorder would certainly consider getting her off of that medication as an outpatient. 6. Also, discussed converting her Effexor to a longer acting form of the medication to reduce peak effects regarding her anxiety which she can further review with her outpatient psychiatrist. Thank you for allowing us to participate in this patient's care.
[2016-08-17 15:09] VITALS: BP 138/85; PULSE 92; TEMP 36.8; O2SAT 96
[2016-08-17] MEDS ORDERED: LYR100 PO (17:48)
--- NOTE | 2016-08-17 17:50 | Discharge Instructions ---
Discharge Instructions Date of Service Aug 17, 2016. Admission Reason for Admission: Unresponsiveness Discharge Discharge Diagnosis / Problem: unresponsive state /drug over dose /concern for seizure Discharge Goals Goal(s): Improve disease control, Diagnostic testing, Therapeutic intervention Activity Recommendations Activity Limitations: resume your previous activity Driving or Machine Use: do not drive till evaluated by Neurology . Instructions / Follow-Up Instructions / Follow-Up HOSPITAL FOLLOW UP on 08/22/2016 @ 11:[address] Kvng Ceron, DO General Internal Medicine [facility] FOLLOW UP WITH NEUROLOGY DR KELLEY IN OFFICE , PLEASE CALL OFFICE TO SCHEDULE AN APPOINTMENT YOU WILL NEED AN EXTENDED EEG TO ASSESS FOR SEIZURE DO NOT DRIVE TILL EVALUATED BY NEUROLOGY Current Hospital Diet Patient's current hospital diet: Regular Diet Discharge Diet Recommended Diet: Regular Diet Pending Studies Studies pending at discharge: no Medical Emergencies . Who to Call and When: Medical Emergencies: If at any time you feel your situation is an emergency, please call 911 immediately. . Non-Emergent Contact Non-Emergency issues call your: Primary Care Provider . . "Provider Documentation" section prepared by Lupis Bach. VTE Core Measure Inpt VTE Proph given/why not?: Cindy Torre, SCD's
[2016-08-17] MEDS ORDERED: LYR50 PO (17:57)
--- NOTE | 2016-08-17 18:33 | Progress Note ---
Internal Med Progress Note Date of Service: Aug 17, 2016. Provider Documentation: SUBJECTIVE: awake and alert , no seizure activity noted mentions today feels dizzy lightheaded and wobbly while trying to be OOB and ambulate no syncope or headache present at bedside feels that it will be beneficial if pt stays overnight and possible go home tomorrow before noon OBJECTIVE: Vital Signs-as noted below Exam: General-no sign of distress Eyes-sclera non icteric ENT-NAD Neck-no JVD Lungs-CTA ,no wheeze or rales Heart-regular S1/S2 Abdomen-soft, non tender Extremities-no lower ext edema Neuro-AAO x3, no focal neurological deficit Lab data as noted below. ASSESSMENT & PLAN: UNRESPONSIVENESS resolved, awake and alert today , conversing does not recall the event , denies of taking extra medications Differentials - possibly due to drug overdose- UDS + for benzo and MDMA- ; alcohol neg Prior hx of overdose on Klonopin and marijuana in Mar 2016 CT head negative change No obvious infection; CXR no infiltrate; UA unremarkable; no leukocytosis, lactic acid negative; EEG-negative for Sz Intubated in ER for airway protection, tx to ICU Extubated remains in room air no respiratory depression pt is concern for possible Seizure -neuro consult requested appreciate input -hard to assess actual Sz vs polysubstance abuse /withdrawal recommend -to have out pt follow up for extended EEG Should not drive till evaluated by Neurology Lyrica dose reduced to prevent Sz episode DEPRESSION/ ANXIETY On Xanax, Bupropion, and Effexor at home presented with possible over dose prior hx of OD as well Psych consult requested awaiting input will need adjustment of anti depressant meds FIBROMYALGIA On gabapentin and baclofen at home may need dose adjustment DVT PROPHYLAXIS low risk SCD and teds ambulate DISPOSITION Lives with possible discharge home tomorrow if remains stable medically pt is counselled repeatedly regarding life threatening risk with Drug OD / combining multiple sedatives/antidepressant with Alcohol Vital Signs: Date Time Temp Pulse Resp B/P Pulse Ox O2 Delivery O2 Flow Rate FiO2 08/17/16 16:00 Room Air 08/17/16 15:09 36.8 92 20 138/85 96 Room Air 08/17/16 08:00 Room Air 08/17/16 07:17 36.7 68 18 133/83 98 Room Air 4/15/17 00:15 Room Air 08/17/16 00:12 36.7 66 16 136/87 98 Room Air 08/16/16 20:35 Room Air 08/16/16 19:40 37.3 85 22 128/74 97 Room Air Lab Results: Results Past 24 Hours Test 08/17/16 05:05 08/17/16 07:24 08/17/16 11:28 Range/Units White Blood Count 6.86 4.8-10.8 K/uL Red Blood Count 3.59 4.2-5.4 M/uL Hemoglobin 11.1 12.0-16.0 g/dL Hematocrit 33.8 37-47 % Mean Corpuscular Volume 94.2 80-100 fL Mean Corpuscular Hemoglobin 30.9 25-34 pg Mean Corpuscular Hemoglobin Concent 32.8 32-36 g/dl Platelet Count 228 130-400 K/uL Mean Platelet Volume 10.2 7.4-10.4 fL Neutrophils (%) (Auto) 45.2 % Lymphocytes (%) (Auto) 39.8 % Monocytes (%) (Auto) 9.2 % Eosinophils (%) (Auto) 4.8 % Basophils (%) (Auto) 0.9 % Neutrophils # (Auto) 3.10 1.4-6.5 K/uL Lymphocytes # (Auto) 2.73 1.2-3.4 K/uL Monocytes # (Auto) 0.63 0.11-0.59 K/uL Eosinophils # (Auto) 0.33 0-0.5 K/uL Basophils # (Auto) 0.06 0-0.2 K/uL RDW Standard Deviation 54.1 36.4-46.3 fL RDW Coefficient of Variation 15.7 11.5-14.5 % Immature Granulocyte % (Auto) 0.1 % Immature Granulocyte # (Auto) 0.01 0.00-0.02 K/uL Sodium Level 143 136-145 mmol/L Potassium Level 3.8 3.5-5.1 mmol/L Chloride Level 111 98-107 mmol/L Carbon Dioxide Level 29 21-32 mmol/L Anion Gap 3.0 3-11 mmol/L Blood Urea Nitrogen 9 7-18 mg/dl Creatinine 0.89 0.60-1.20 mg/dl Est Creatinine Clear Calc Drug Dose 75.1 ml/min Estimated GFR () 84.0 Estimated GFR (Non- 72.5 BUN/Creatinine Ratio 9.8 10-20 Random Glucose 79 70-99 mg/dl Calcium Level 8.2 8.5-10.1 mg/dl Magnesium Level 2.0 1.8-2.4 mg/dl Bedside Glucose 84 73 70-90 mg/dl
[2016-08-17] MEDS ORDERED: SODIUM CHLORIDE 0.9% 1000ML 1,000 ML IV SCH (18:45)
[2016-08-17 20:00] VITALS: O2SAT 96
[2016-08-17 23:47] VITALS: BP 136/86; PULSE 70; TEMP 36.4; O2SAT 100
[2016-08-18] VITALS: O2SAT 96
[2016-08-18 07:18] VITALS: BP 127/80; PULSE 73; TEMP 36.4; O2SAT 99
[2016-08-18] MEDS: ENOXAPARIN 40 MG/0.4 ML SYR SQ SCH (07:41)
[2016-08-18] MEDS: THIAMINE HCL 100 MG TAB PO SCH (07:42)
[2016-08-18] MEDS: VENLAFAXINE HCL 37.5 MG TAB PO SCH (07:43)
[2016-08-18] MEDS: PANTOprazole SOD 40 MG TAB PO SCH (07:43)
[2016-08-18] MEDS: MULTIVITAMIN TAB PO SCH (07:44)
[2016-08-18 08:00] VITALS: O2SAT 99
--- NOTE | 2016-08-18 10:42 | Discharge Summary ---
Discharge Summary Date of Service Aug 18, 2016. Discharge Summary Admission Date: Aug 15, 2016 at 09:12 Discharge Date: Aug 17, 2016 Discharge Disposition: Home Principal Diagnosis: unresponsive state /drug over dose /concern for seizure Consultations: CORPORATE DIRECTOR OF HUMAN RESOURCES [facility]ONI NEUR[employer]Y DR BLOUNT Pending Studies/Follow-Up: HOSPITAL FOLLOW UP on 08/22/2016 @ 11:[address] Kvng Ceron, General Internal Medicine [facility] FOLLOW UP WITH NEUROLOGY DR KELLEY IN OFFICE , PLEASE CALL OFFICE TO SCHEDULE AN APPOINTMENT YOU WILL NEED AN EXTENDED EEG TO ASSESS FOR SEIZURE Medication Reconciliation Continued Medications: Acetaminophen/Diphenhydramine (Tylenol Pm) 500 Mg/25 Mg Tab 3 TAB PO HS, TAB Albuterol Hfa (Ventolin Hfa) 200 Puffs/68018 Mcg Aers 2 PUFFS INH Q6H PRN for SOB/Wheezing, #1 INHALER Alprazolam (Xanax) 0.25 Mg Tab 0.25 MG PO BID PRN for Anxiety, TAB Baclofen (Lioresal) 10 Mg Tab 5 MG PO BID, TAB Bupropion HCl (Bupropion HCl) 100 Mg Tab 100 MG PO QAM Cyanocobalamin (Cyanocobalamin) 1,000 Mcg/Ml Inj 1000 MCG INJ MONTHLY Furosemide (Lasix) 40 Mg Tab 40 MG PO DAILY PRN for swelling, TAB Omeprazole (Prilosec) 20 Mg Cap 20 MG PO BID Pediatric Multiple Vitamins W/ (Flintstones Plus Iron) 1 Chw Chw 2 TAB PO QAM Pregabalin (Lyrica) 100 Mg Cap 100 MG PO TID, CAP Sucralfate (Carafate) 1 Gm/10 Ml Susp 1 GM PO QID, ML Venlafaxine Hcl (Effexor) 75 Mg Tab 75 MG PO BID, TAB Referrals At Discharge Follow up Referrals: Physician Referral - Please Call For Appointment with Ramo Blount M.D. ( MEDICINE) Admission Information HPI (per Admitting provider): This is a 56 year old female with PMH of depression, anxiety, RLS, fibromyalgia , hx of gastric bypass, diastolic CHF, and other problems listed below who was brought to the ED via ambulance for unresponsiveness. Per via phone call , pt was in normal state of health yesterday. Patient and were camping outside overnight. There was no heating in the tent. states overnight pt had an episode of diffuse body shaking. Then around 4:30 am was minimally responsive when he tried to wake her, was breathing abnormally, had another episode of diffuse body shaking, and dry heaves. called 911. Patient was given Narcan en route without effect. Pre-hospital BSG was WNL. On arrival to the ER she was noted to be covered in emesis and incontinent of bowel and bladder. She was minimally responsive to painful stimuli. Pt was hypothermic with HR 40s-50s with sinus bradycardia and PACs on EKG. Patient's respirations were as low as 10/min with poor gag reflex, therefore patient was intubated. He denies patient recently taking in alcohol or illicit drugs. Last narcotic medication use was >1 month ago (tramadol). states Xanax 0.25 mg recently was increased by psychiatrist from daily to BID. states she took 2 tabs yesterday am and unsure if she took it yesterday evening. Patient was hospitalized in Mar 2016 for overdose from Klonopin and marijuana. No hx of seizures per . Prior EEG in December 2015 neg for seizure, + for moderate encephalopathy of nonspecific etiology. This is an abnormal routine EEG secondary to moderate diffuse background disorganization and slowing. states pt is no longer on nocturnal O2 after having repeat sleep study. Physical Exam (per Admitting): General Appearance: + pertinent finding (56 year old female, unresponsive to sternal rub, on ventilator) Head: normocephalic, atraumatic Eyes: normal inspection, PERRL, sclerae normal ENT: + pertinent finding (unable to examine) Neck: trachea midline Respiratory/Chest: lungs clear, normal breath sounds, + pertinent finding ( saturating well on ventilator) Cardiovascular: no murmur, + bradycardia (regular rhythm), + pertinent finding (peripheral pulses 1+) Abdomen/GI: normal bowel sounds, non tender, soft Extremities/Musculoskelatal: normal capillary refill, no pedal edema Neurologic/Psych: + pertinent finding (unresponsive to sternal rub. unable to do motor and sensory testing due to unresponsive state. ) Skin: normal color, warm/dry Hospital Course UNRESPONSIVENESS resolved, awake and alert , conversing does not recall the event , denies of taking extra medications Differentials - possibly due to drug overdose- UDS + for benzo and MDMA- ; alcohol neg Prior hx of overdose on Klonopin and marijuana in Mar 2016 CT head negative change No obvious infection; CXR no infiltrate; UA unremarkable; no leukocytosis, lactic acid negative; EEG-negative for Sz Intubated in ER for airway protection, tx to ICU Extubated remains in room air no respiratory depression pt is concern for possible Seizure -neuro consult requested appreciate input -hard to assess actual Sz vs polysubstance abuse /withdrawal recommend -to have out pt follow up for extended EEG Should not drive till evaluated by Neurology DEPRESSION/ ANXIETY On Xanax, Bupropion, and Effexor at home presented with possible over dose prior hx of OD as well Psych consult requested appreciate input will need close out pt follow up with Psychiatry FIBROMYALGIA On gabapentin and baclofen at home DVT PROPHYLAXIS low risk SCD and teds ambulate DISPOSITION Lives with discharge home today pt is counselled repeatedly regarding life threatening risk with Drug OD / combining multiple sedatives/antidepressant with Alcohol Total time spent on discharge = 35 MINS This includes examination of the patient, discharge planning, medication reconciliation, and communication with other providers. Discharge Instructions Discharge Instructions Date of Service Aug 17, 2016. Admission Reason for Admission: Unresponsiveness Discharge Discharge Diagnosis / Problem: unresponsive state /drug over dose /concern for seizure Discharge Goals Goal(s): Improve disease control, Diagnostic testing, Therapeutic intervention Activity Recommendations Activity Limitations: resume your previous activity Driving or Machine Use: do not drive till evaluated by Neurology . Instructions / Follow-Up Instructions / Follow-Up HOSPITAL FOLLOW UP on 08/22/2016 @ 11:[address] Kvng Ceron DO General Internal Medicine [facility] FOLLOW UP WITH NEUROLOGY DR KELLEY IN OFFICE , PLEASE CALL OFFICE TO SCHEDULE AN APPOINTMENT YOU WILL NEED AN EXTENDED EEG TO ASSESS FOR SEIZURE DO NOT DRIVE TILL EVALUATED BY NEUROLOGY Current Hospital Diet Patient's current hospital diet: Regular Diet Discharge Diet Recommended Diet: Regular Diet Pending Studies Studies pending at discharge: no Medical Emergencies . Who to Call and When: Medical Emergencies: If at any time you feel your situation is an emergency, please call 911 immediately. . Non-Emergent Contact Non-Emergency issues call your: Primary Care Provider . . "Provider Documentation" section prepared by Lupis Bach. VTE Core Measure Inpt VTE Proph given/why not?: Cindy Torre, SCD's Additional Copies To Kvng Ceron D.O. Ramo Blount M.D. (MEDICINE)
[2016-08-18 10:48] VITALS: BP 127/80; PULSE 73; TEMP 36.4; O2SAT 99
[2016-08-18 17:38] LABS: HYDROXYETHYLFLURAZEPAM CONF NEGATIVE NG/ML (CUTOFF=50); HYDROXYMIDAZOLAM NEGATIVE NG/ML (CUTOFF=50); HYDROXYTRIAZOLAM CONF NEGATIVE NG/ML (CUTOFF=50); TEMAZEPAM CONF NEGATIVE NG/ML (CUTOFF=50)
[2016-11-26] MEDS ORDERED: HYDR25CA PO (10:44)
[2016-11-26] MEDS ORDERED: EFFEXOR PO (10:44)
[2017-01-24] MEDS ORDERED: CYNI1000 IM (02:21)
[2017-01-24] MEDS ORDERED: PREG100C PO (10:44)
[2017-01-24] MEDS ORDERED: DIPH-437 PO (10:44)
[2017-01-24] MEDS ORDERED: CALC1TAB9 PO (10:44)
== END 2016-08-18 11:05 | disposition home or self-care (01) | DRG 208 ==
LOC: ENRESERVTM → ENRESERVDT → EDBD 06:34 → C.EDA 06:39 → C.MSICU 09:12 → C.2E 20:55 → C.MS2W 08-16 20:58
PROVIDERS: ADMIT Family Medicine; ATTEND Hospitalist
PROC: 0BH17EZ Insertion of Endotracheal Airway into Trachea, Via Natural or Artificial Opening (ICD-10-PCS; principal; 2016-08-15)
PROC: 5A1935Z Respiratory Ventilation, Less than 24 Consecutive Hours (ICD-10-PCS; principal; 2016-08-15)
DX: J96.90 Respiratory failure, unspecified, unspecified whether with hypoxia or hypercapnia (principal); G92 Toxic encephalopathy; I50.32 Chronic diastolic (congestive) heart failure; E87.2 Acidosis; F33.9 Major depressive disorder, recurrent, unspecified; J44.0 Chronic obstructive pulmonary disease with (acute) lower respiratory infection; G40.909 Epilepsy, unspecified, not intractable, without status epilepticus; R00.1 Bradycardia, unspecified; Z98.84 Bariatric surgery status; M19.90 Unspecified osteoarthritis, unspecified site; F32.9 Major depressive disorder, single episode, unspecified; K21.9 Gastro-esophageal reflux disease without esophagitis; G89.4 Chronic pain syndrome; I10 Essential (primary) hypertension; G25.81 Restless legs syndrome; E66.9 Obesity, unspecified; Z68.33 Body mass index [BMI] 33.0-33.9, adult; M79.7 Fibromyalgia; F10.10 Alcohol abuse, uncomplicated; F17.200 Nicotine dependence, unspecified, uncomplicated; F19.10 Other psychoactive substance abuse, uncomplicated; E78.5 Hyperlipidemia, unspecified; G47.33 Obstructive sleep apnea (adult) (pediatric); T42.4X4A Poisoning by benzodiazepines, undetermined, initial encounter; T68.XXXA Hypothermia, initial encounter; Y92.9 Unspecified place or not applicable; R40.2432 Glasgow coma scale score 3-8, at arrival to emergency department

== ENCOUNTER 2016-09-07 16:21 | Observation (INO) | payer OTHER ==
[~2016-09-07] VITALS: Ht 160 cm; Wt 80.0 kg
[~2016-09-07 16:21] MED LIST changes: +BACL1TAB PO; -OXGN
[2016-09-07] MEDS ORDERED: SODIUM CHLORIDE 0.9% 1000ML 1,000 ML IV STA (16:31)
[2016-09-07] MEDS ORDERED: LORAZEPAM 2 MG/ML 1 ML VIAL IV STA (16:31)
[2016-09-07] MEDS ORDERED: DiphenhydrAMINE HCL 50 MG/ML VIAL IV STA (16:31)
[2016-09-07 17:30] LABS: BASO % 0.4 %; BASO ABS # 0.03 K/uL (0-0.2); COMPLETE YES; EOS % 0.5 %; HEMATOCRIT 37.1 % (37-47); IG% 0.2 %; LYMPH % 6.8 %; LYMPH ABS # 0.58 K/uL (1.2-3.4); MEAN CORPUSCULAR HEMOGLOBIN 30.1 pg (25-34); MEAN CORPUSCULAR HGB CONC 32.3 g/dl (32-36); MEAN PLATELET VOLUME 9.7 fL (7.4-10.4); MONO % 6.5 %; NEUT % 85.6 %; PLATELET COUNT 232 K/uL (130-400); RED BLOOD COUNT 3.99 M/uL (4.2-5.4)
--- NOTE | 2016-09-07 17:30 | DIAGNOSTIC IMAGING REPORT ---
HEAD CT NONCONTRAST CT DOSE: 810.83 mGy.cm HISTORY: Altered mental status EVALUATE ALTERED MENTAL STATUS/WEAKNESS TECHNIQUE: Multiaxial CT images of the head were performed without the use of intravenous contrast. Comparison: 08/15/2016 Findings: The paranasal sinuses and mastoid air cells are clear. The calvarium and skull base are intact. The ventricles and sulci are within normal limits. There is no mass, hematoma, midline shift, or acute infarct. Impression: No acute intracranial abnormality. Electronically signed by: Tello Warren M.D. 09/07/2016 5:29 PM Dictated Date/Time: 09/07/2016 5:28 PM
[2016-09-07 17:39] LABS: INR 1.1 (0.9-1.1); PARTIAL THROMBOPLASTIN RATIO 1.1; PROTHROMBIN TIME (PATIENT) 11.4 SECONDS (9.0-12.0)
[2016-09-07 17:48] LABS: ALT/SGPT 19 U/L (12-78); AST/SGOT 14 U/L (15-37); BLOOD UREA NITROGEN 20 mg/dl (7-18); BUN/CREATININE RATIO 19.9 (10-20); CALCIUM 8.6 mg/dl (8.5-10.1); CARBON DIOXIDE 25 mmol/L (21-32); CHLORIDE 108 mmol/L (98-107); GLUCOSE 83 mg/dl (70-99); POTASSIUM 3.6 mmol/L (3.5-5.1); SODIUM 144 mmol/L (136-145)
[2016-09-07 17:57] LABS: ALKALINE PHOSPHATASE 75 U/L (45-117); CKMB/CK RATIO 2.5 (0-3.0); THYROID STIMULATING HORMONE 0.949 uIu/ml (0.300-4.500)
[2016-09-07] MEDS ORDERED: LANS30TA3 PO (17:59)
[2016-09-07] MEDS ORDERED: TRAM-10 PO (17:59)
[2016-09-07] MEDS ORDERED: WLL75 PO (17:59)
[2016-09-07] MEDS ORDERED: ALBU18002 INH (17:59)
[2016-09-07] MEDS ORDERED: RANI300T2 PO (17:59)
[2016-09-07] MEDS ORDERED: DIPH-437 PO (18:00)
--- NOTE | 2016-09-07 18:10 | DIAGNOSTIC IMAGING REPORT ---
CHEST ONE VIEW PORTABLE CLINICAL HISTORY: EVALUATE ALTERED MENTAL STATUS/WEAKNESS dyspnea COMPARISON STUDY: 08/15/2016 FINDINGS: Bilateral perihilar infiltrative/pulmonary vascular change. Mid and peripheral aspects of the lungs appear clear. Diaphragms are smooth. Costophrenic angles are sharp. IMPRESSION: Prominent perihilar parenchymal and bronchovascular markings. Potential pulmonary arterial hypertension. No significant mid to peripheral lung infiltrative process Electronically signed by: Tello Warren M.D. 09/07/2016 6:08 PM Dictated Date/Time: 09/07/2016 6:06 PM
[2016-09-07 19:23] LABS: URINE APPEARANCE CLEAR (CLEAR); URINE BILIRUBIN NEG (NEG); URINE COLOR YELLOW; URINE NITRITE NEG (NEG); URINE PH 5.5 (4.5-7.5); URINE SPECIFIC GRAVITY 1.014 (1.000-1.030); UROBILINOGEN NEG (NEG); ZZURINE CULT IF INDIC CATH NO
[2016-09-07 19:24] LABS: MANUAL MICROSCOPIC REQUIRED? NO; REVIEW REQ? NO
[2016-09-07 19:46] LABS: BENZODIAZEPINE, URINE NEG (NEG); COCAINE,URINE NEG (NEG); PHENCYCLIDINE, URINE NEG (NEG)
--- NOTE | 2016-09-07 22:54 | EMERGENCY ROOM VISIT NOTE ---
History Report prepared by [place]: Brenton Gramajo Under the Supervision of: Dr. Chu Drew D.O. First contact with patient: 16:26 Chief Complaint: SEIZURE Stated Complaint: SEIZURE SX History of Present Illness The patient is a 56 year old female who presents to the Emergency Room with complaints of a worsening seizure beginning six and a half hours prior to arrival. As per , the patient appeared fine for a couple hours until she began experiencing seizure like activity. He states the patient waited to take her normal medication, and when she began experiencing the seizure she took her medication and told her to take her to the hospital it does not work. The notes the seizure appears to have worsened throughout the day. He states the patient was in the hospital around [facility] for a similar episode, but the patient was incoherent at that time. The notes the patient was on a respirator during her admission around [facility] because her breathing was low. The patient states they wanted her to see a neurologist and have an EEG done. She currently complains of a headache with today's symptoms. The notes the patient was sliding off of the bed and needed help getting up earlier today. The patient denies recreational drug use. 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 A total of 10 systems reviewed and were otherwise negative. Past Medical & Surgical Medical Problems: (1) Anxiety (2) Congestive heart failure, unspecified (3) Depression (4) Dyslipidemia (5) Fibromyalgia (6) GERD (gastroesophageal reflux disease) (7) Leg wound, left (8) Organic sleep disorder (9) Osteoarthritis (10) Restless legs (11) Seizure (12) Unresponsiveness Surgical Problems: (1) Gastric bypass status for obesity (2) H/O arthroscopic knee surgery (3) Hx of appendectomy (4) S/P bronchoscopy (5) S/p EGD Family History Unobtainable family history due to adoption Social History Smoking Status: Current Every Day Smoker Alcohol Use: none Drug Use: none, marijuana Marital Status: Housing Status: lives with significant other Occupation Status: unemployed Current/Historical Medications Scheduled Acetaminophen/Diphenhydramine (Tylenol Pm), 1 TAB PO UD Albuterol Sulfate (Proair Respiclick), 2 PUFFS INH QID Baclofen (Lioresal), 5 MG PO BID Bupropion HCl (Bupropion HCl), 75 MG PO DAILY Cyanocobalamin (Cyanocobalamin), 1,000 MCG INJ [id number] Lansoprazole (Prevacid Solutab), 30 MG PO DAILY Omeprazole (Prilosec), 20 MG PO BID Pediatric Multiple Vitamins W/ (Flintstones Plus Iron), 2 TAB PO QAM Pregabalin (Lyrica), 100 MG PO TID Ranitidine Hcl (Zantac), 300 MG PO HS Sucralfate (Carafate), 1 GM PO QID Venlafaxine Hcl (Effexor), 75 MG PO BID Scheduled PRN Ondansetron Hcl (Zofran), 4 MG PO Q6 PRN for Nausea Tramadol (Ultram), 50 MG PO Q12 PRN for Pain Allergies Coded Allergies: Codeine (Verified Allergy, Intermediate, DIARRHEA/RASH,TOLERATES PERCOCET , 06/19/16) TOLERATES PERCOCET Clonazepam (Verified Allergy, Unknown, "PASS OUT", 06/19/16) NSAIDs (Verified Allergy, Unknown, UNKNOWN, 06/19/16) Sulfamethoxazole w/Trimethoprim (Verified Adverse Reaction, Intermediate, DELIRIUM, 06/19/16) pt devoped invontary muscle spasm ; Aspirin (Verified Adverse Reaction, Unknown, STOMACH IRRITATION, 06/19/16) Cephalexin (Verified Adverse Reaction, Unknown, GI SYMPTOMS, 06/19/16) UPSET STOMACH Hydrocodone (Verified Adverse Reaction, Unknown, OVESEDATION, 05/29/16) Hydromorphone (Verified Adverse Reaction, Unknown, weakness,sweating, 05/29) Physical Exam Vital Signs Date Time Temp Pulse Resp B/P Pulse Ox O2 Delivery O2 Flow Rate FiO2 09/07/16 22:40 69 19 97 09/07/16 22:30 87/64 09/07/16 22:25 62 16 90 09/07/16 22:15 85/61 09/07/16 22:10 65 15 97 09/07/16 22:05 103/75 09/07/16 22:02 81/51 09/07/16 21:50 60 14 95 09/07/16 21:45 95/54 09/07/16 21:30 104/67 09/07/16 21:20 72 22 87 09/07/16 21:15 92/55 09/07/16 21:13 56 09/07/16 21:00 81/51 09/07/16 20:50 59 16 100 09/07/16 20:46 98/56 09/07/16 20:45 79/57 09/07/16 20:30 83/58 09/07/16 20:20 60 15 100 09/07/16 20:15 85/49 09/07/16 20:00 95/57 09/07/16 19:50 73 15 100 09/07/16 19:45 103/63 09/07/16 19:35 74 18 100 09/07/16 19:30 94/68 09/07/16 19:15 85/57 09/07/16 19:05 80 14 99 09/07/16 19:00 87/61 09/07/16 18:45 94/56 09/07/16 18:35 84 14 99 09/07/16 18:30 85/63 09/07/16 18:20 84 16 99 09/07/16 18:15 83/64 09/07/16 18:05 82 19 99 09/07/16 18:00 81/62 09/07/16 17:50 83 16 98 09/07/16 17:45 89/60 09/07/16 17:35 83 17 96 09/07/16 17:30 96/58 09/07/16 17:20 87 21 99 09/07/16 17:15 98/57 09/07/16 17:15 88 09/07/16 17:00 98 Room Air 09/07/16 17:00 36.3 96 18 104/70 95 Room Air Physical Exam CONSTITUTIONAL/VITAL SIGNS: Reviewed / noted above. GENERAL: Trashes on the bed frequently during evaluation, although is able to speak and answer questions appropriately. INTEGUMENTARY: Warm, dry, and [place]. HEAD: Normocephalic. EYES: without scleral icterus or trauma. ENT/OROPHARYNX: clear and moist. LYMPHADENOPATHY/NECK: Is supple without lymphadenopathy or meningismus. RESPIRATORY: Lungs clear and equal. CARDIOVASCULAR: Regular rate and rhythm. GI/ABDOMEN: Soft and nontender. No organomegaly or pulsatile mass. No rebound or guarding. Normal bowel sounds. EXTREMITIES: Warm and well perfused. BACK: No CVA tenderness. NEUROLOGICAL: Intact without focal deficits. PSYCHIATRIC: normal affect. MUSCULOSKELETAL: Normally developed with good muscle tone. Medical Decision & Procedures ER Provider Diagnostic Interpretation: Radiology results as stated below per my review and radiologist interpretation: HEAD CT NONCONTRAST CT DOSE: 810.83 mGy.cm HISTORY: Altered mental status EVALUATE ALTERED MENTAL STATUS/WEAKNESS TECHNIQUE: Multiaxial CT images of the head were performed without the use of intravenous contrast. Comparison: 08/15/2016 Findings: The paranasal sinuses and mastoid air cells are clear. The calvarium and skull base are intact. The ventricles and sulci are within normal limits. There is no mass, hematoma, midline shift, or acute infarct. Impression: No acute intracranial abnormality. Electronically signed by: Tello Warren M.D. 09/07/2016 5:29 PM CHEST ONE VIEW PORTABLE CLINICAL HISTORY: EVALUATE ALTERED MENTAL STATUS/WEAKNESS dyspnea COMPARISON STUDY: 08/15/2016 FINDINGS: Bilateral perihilar infiltrative/pulmonary vascular change. Mid and peripheral aspects of the lungs appear clear. Diaphragms are smooth. Costophrenic angles are sharp. IMPRESSION: Prominent perihilar parenchymal and bronchovascular markings. Potential pulmonary arterial hypertension. No significant mid to peripheral lung infiltrative process Electronically signed by: Tello Warren M.D. 09/07/2016 6:08 PM Laboratory Results 09/07/16 17:20 Red Blood Count 3.99, Mean Corpuscular Volume 93.0, Mean Corpuscular Hemoglobin 30.1, Mean Corpuscular Hemoglobin Concent 32.3, Mean Platelet Volume 9.7, Neutrophils (%) (Auto) 85.6, Lymphocytes (%) (Auto) 6.8, Monocytes (%) (Auto) 6.5, Eosinophils (%) (Auto) 0.5, Basophils (%) (Auto) 0.4, Neutrophils # (Auto) 7.28, Lymphocytes # (Auto) 0.58, Monocytes # (Auto) 0.55, Eosinophils # (Auto) 0.04, Basophils # (Auto) 0.03 09/07/16 17:20 Test 09/07/16 00:00 09/07/16 17:20 Urine Color YELLOW Urine Appearance CLEAR (CLEAR) Urine pH 5.5 (4.5-7.5) Urine Specific [place] 1.014 (1.000-1.030) Urine Protein NEG (NEG) Urine Glucose (UA) NEG (NEG) Urine Ketones TRACE (NEG) Urine Occult Blood NEG (NEG) Urine Nitrite NEG (NEG) Urine Bilirubin NEG (NEG) Urine Urobilinogen NEG (NEG) Urine Leukocyte Esterase NEG (NEG) Urine WBC (Auto) 0 /hpf (0-5) Urine RBC (Auto) 0-4 /hpf (0-4) Urine Hyaline Casts (Auto) 1-5 /lpf (0-5) Urine Epithelial Cells (Auto) 5-10 /lpf (0-5) Urine Bacteria (Auto) NEG (NEG) Urine Opiates Screen NEG (NEG) Urine Methadone, Qualitative NEG (NEG) Urine Barbiturates NEG (NEG) Urine Phencyclidine (PCP) Level NEG (NEG) Ur Amphetamine/Methamphetamine NEG (NEG) MDMA (Ecstasy) Screen POS (NEG) Urine Benzodiazepines Screen NEG (NEG) Urine Cocaine Metabolite NEG (NEG) Urine Marijuana (THC) POS (NEG) White Blood Count 8.50 K/uL (4.8-10.8) Red Blood Count 3.99 M/uL (4.2-5.4) Hemoglobin 12.0 g/dL (12.0-16.0) Hematocrit 37.1 % (37-47) Mean Corpuscular Volume 93.0 fL (80-100) Mean Corpuscular Hemoglobin 30.1 pg (25-34) Mean Corpuscular Hemoglobin Concent 32.3 g/dl (32-36) Platelet Count 232 K/uL (130-400) Mean Platelet Volume 9.7 fL (7.4-10.4) Neutrophils (%) (Auto) 85.6 % Lymphocytes (%) (Auto) 6.8 % Monocytes (%) (Auto) 6.5 % Eosinophils (%) (Auto) 0.5 % Basophils (%) (Auto) 0.4 % Neutrophils # (Auto) 7.28 K/uL (1.4-6.5) Lymphocytes # (Auto) 0.58 K/uL (1.2-3.4) Monocytes # (Auto) 0.55 K/uL (0.11-0.59) Eosinophils # (Auto) 0.04 K/uL (0-0.5) Basophils # (Auto) 0.03 K/uL (0-0.2) RDW Standard Deviation 50.7 fL (36.4-46.3) RDW Coefficient of Variation 14.7 % (11.5-14.5) Immature Granulocyte % (Auto) 0.2 % Immature Granulocyte # (Auto) 0.02 K/uL (0.00-0.02) Prothrombin Time 11.4 SECONDS (9.0-12.0) Prothromb Time International Ratio 1.1 (0.9-1.1) Activated Partial Thromboplast Time 27.3 SECONDS (21.0-31.0) Partial Thromboplastin Ratio 1.1 Anion Gap 11.0 mmol/L (3-11) Estimated GFR () 72.9 Estimated GFR (Non- 62.9 BUN/Creatinine Ratio 19.9 (10-20) Calcium Level 8.6 mg/dl (8.5-10.1) Magnesium Level 2.0 mg/dl (1.8-2.4) Total Bilirubin 0.4 mg/dl (0.2-1) Direct Bilirubin 0.2 mg/dl (0-0.2) Aspartate Amino Transf (AST/SGOT) 14 U/L (15-37) Alanine Aminotransferase (ALT/SGPT) 19 U/L (12-78) Alkaline Phosphatase 75 U/L (45-117) Total Creatine Kinase 159 U/L (26-192) Creatine Kinase MB 4.0 ng/ml (0.5-3.6) Creatine Kinase MB Ratio 2.5 (0-3.0) Troponin I < 0.015 ng/ml (0-0.045) Total Protein 6.5 gm/dl (6.4-8.2) Albumin 3.5 gm/dl (3.4-5.0) Lipase 84 U/L (73-393) Thyroid Stimulating Hormone (TSH) 0.949 uIu/ml (0.300-4.500) Laboratory results as stated above per my review. Medications Administered Medications (Trade) Dose Ordered Sig/Gabriel Route Start Time Stop Time Status Last Admin Dose Admin Sodium Chloride (Nss 1000ml) 1,000 ml @ 999 mls/hr Q1H1M STAT IV 09/07/16 16:31 09/07/16 17:31 DC 09/07/16 16:40 999 MLS/HR Lorazepam (Ativan Inj) 1 mg NOW STAT IV 09/07/16 16:31 09/07/16 16:33 DC 09/07/16 16:40 1 MG Diphenhydramine HCl (Benadryl Inj) 25 mg NOW STAT IV 09/07/16 16:31 09/07/16 16:33 DC 09/07/16 16:40 25 MG ECG Indication: other (seizure) Rate (beats per minute): 96 Rhythm: normal sinus Findings: no ectopy, other (no acute injury) ED Course 162: Previous medical records were reviewed. The patient was evaluated in room C6. A complete history and physical examination was performed. 163: Ordered Benadryl Inj 25 mg IV, Ativan Inj 1 mg IV, Sodium Chloride 1,000 ml @ 999 mls/hr IV. 2120: Reevaluated the patient at this time, and she was sleeping then awoken with stimuli. I updated the patient at this time. 2200: Reevaluated the patient at this time, and she was sleeping. The patient awakens with painful stimuli then begins snoring. 2235: Reevaluated the patient at this time, and the patient's was previously called to pick her up. 2240 On reevaluation, the patient is doing well. I discussed the results and findings with the patient and her . They verbalized agreement of the treatment plan. 2310: As per nurse, the patient is flailing in the wheelchair upon discharge and unable to be discharged safely. 2315: I spoke to James Silveira (Hospitalist) about the patient's case, and he will follow the patient for further evaluation. Medical Decision Etiologies such as infection, hypoglycemia, electrolyte abnormalities, cardiac sources, intracerebral event, trauma, toxicologic, neurologic, as well as others were entertained. This is a 56 year old female who presents to the ED with a chief complaint of thrashing about. The patient states that she is having a bad headache. She reports that she has been thrashing about her most of the day. She is uncertain why. The patient has been seen by myself one previous time. At that time she came in unresponsive and required endotracheal intubation but was extubated prior to going to the ICU. The patient was found to have marijuana in her system. She was discharged to have some outpatient testing otherwise nothing else was found. The patient is a poor historian and has no other complaints. On exam, the patient is thrashing about in the bed periodically. The movements appear to be mostly voluntary. She is able to answer questions while thrashing about. She was given 1 mg of IV Ativan and 25 mg of IV Benadryl. She then fell asleep. She was observed in the emergency department for approximately 6 hours. She was able to maintain her own airway. She responded to painful stimuli with localizing pain and swearing. She would then fall back asleep fairly quickly. A CT scan of the brain did not show acute process. CT scan of the brain did not show acute process. A chest x-ray was unremarkable. CBC was normal. Chemistry panel was normal. TSH was normal. Cardiac enzyme is normal. Total CK was normal. Urinalysis revealed trace ketones. Tox screen shows positive marijuana similar to her previous tox screen. The patient was observed here for 6-1/2 hours. She appears to be quite drowsy. The medication she has received here is likely merely worn off. She does, again as described, localizes pain and is able to open her eyes and use profane language when given painful stimuli but falls back asleep. I do not suspect a significant structural or metabolic process that requires inpatient care. She had no issues with airway management during her entire stay here. She was on a pulse oximeter and never became hypoxic. The boyfriend / was advised of the positive marijuana screen. He reports that he was a previous drug abuser for 5 years but reports that he is now clean. At this point we are unable to awaken the patient enough to be L to sit up. She'll be seen by the hospitalist for observation. Consults Time Called: 2310 Consulting Physician: James Silveira (Hospitalist) Returned Call: [phone] I spoke to James Silveira (Hospitalist) about the patient's case, and he will follow the patient for further evaluation. Impression Primary Impression: Marijuana abuse Additional Impressions: Seizure-like activity Excessive sleepiness Scribe Attestation The scribe's documentation has been prepared under my direction and personally reviewed by me in its entirety. I confirm that the note above accurately reflects all work, treatment, procedures, and medical decision making performed by me. Departure Information Dispostion Being Evaluated By Hospitalist (James Silveira (Hospitalist)) Referrals Kvng Ceron D.O. (PCP) Problem Qualifiers
[2016-09-08] VITALS (8 sets, daily range): BP systolic 107–147; BP diastolic 55–92; PULSE 71–83; TEMP 36.4–37.4; O2SAT 95–98; Ht 160 cm; Wt 80.0 kg
[2016-09-08] MEDS ORDERED: IV FLUIDS COMPLETED PRN (00:15)
[2016-09-08] MEDS ORDERED: ALBUT/IPRATROP 3MG/0.5MG NEB 3 ML VIAL INH PRN (00:45)
[2016-09-08] MEDS ORDERED: NITROGLYCERIN 0.4 MG SL PER TAB CHARGE SL PRN (00:45)
[2016-09-08] MEDS ORDERED: ACETAMINOPHEN 325 MG TAB PO PRN (00:45)
[2016-09-08] MEDS ORDERED: OXYCODONE/ACETAMINOPHEN 5-325 TAB PO PRN (00:45)
[2016-09-08 01:40] LABS: LYME DISEASE AB IGG NEG (NEG); LYME DISEASE AB IGM NEG (NEG)
[2016-09-08] MEDS ORDERED: ACETAMINOPHEN IV 650 MG in EMPTY BAG 0 ML IV PRN (02:00)
[2016-09-08] MEDS ORDERED: LACTATED RINGER'S 1000ML 1,000 ML IV ONE (02:00)
[2016-09-08] MEDS ORDERED: PROMETHAZINE HCL INJ 12.5 MG in SODIUM CHLORIDE 0.9% 50ML 50 ML IV ONE (02:02)
[2016-09-08] MEDS ORDERED: PROMETHAZINE HCL INJ 12.5 MG in SODIUM CHLORIDE 0.9% 50ML 50 ML IV PRN (02:15)
--- NOTE | 2016-09-08 02:20 | HISTORY & PHYSICAL EXAMINATION ---
DATE OF ADMISSION: 09/08/2016 PRIMARY CARE DOCTOR: Dr. Ceron History was obtained from and the patient's records. Unable to obtain hx from px 2 to obtunded state. HISTORY OF PRESENT ILLNESS: Medical history is significant for chronic diastolic heart failure, fibromyalgia , mood disorder, anxiety, past tobacco abuse, sleep disorder as per records and history of gastric bypass. Recent confinement was in last month for unresponsiveness, possibly from drug overdose. Patient was initially intubated for airway protection. Neurology was consulted for possible seizures. EEG was unremarkable. As per neurologist's note, possible seizure. Plan was to prolonged EEG. Yesterday, the patient woke up with uncontrolled flailing of the arms and legs and head. Patient was awake throughout the episodes. A little confused as per . C/o headache going from front to back. At the Emergency Room, px given Ativan and Benadryl. As per RN, transient cessation of involuntary movements when ER physician told patient to stop. Px feel asleep. Intermittent drowsiness and sliding from the wheelchair upon attempts to dc px from the ER. Px was was about to be discharged from the ER. MEDICAL HISTORY: As above. SURGERIES: Gastric bypass, knee surgery and appendectomy. HOME MEDICATIONS: Include; Tylenol, ProAir, baclofen, bupropion cyanocobalamin, Prevacid Prilosec, Zofran, Lyrica, Zantac, Carafate, Ultram, Effexor ALLERGIES aspirin, keflex, clonazepam, codeine, hydrocodone, hydromorphone, Bactrim and NSAIDs. FAMILY HISTORY: Could not be obtained secondary to adoption. PERSONAL AND SOCIAL HISTORY: Past tobacco abuse. No chronic intake of alcoholic beverages. On disability ROS could not be reliably obtained. PHYSICAL EXAMINATION: VITAL SIGNS: Blood pressure noted to be 85/69, pulse rate 60, RR 16, temperature 36.3 and sats 98 on room air. GENERAL: Noted to be obtunded, no respiratory distress. Occasional lower extremity twitches, snoring. SKIN: Normal color. HEENT: Artas palpebral conjunctivae. Dry mucosa. NECK: No JVD. Supple. CHEST: Decreased effort. HEART: Regular rate and rhythm. ABDOMEN: Some distention, non tender. EXTREMITIES: Minimal LE edema, no tenderness. NEUROLOGIC: Obtunded, miotic pupils. LABORATORIES: Hemoglobin was noted to be 12, hematocrit 37.1, white cell count 8.5 and platelets 232. Sodium 140, potassium 3.6, chloride 108, CO2 25, BUN 20, creatinine 1.[address] head; no acute pathology. Chest x-ray; potential pulmonary arterial hypertension. UA; ketones. UDS MDMA and marijuana. EKG as per my read : rate=95, NSR, no ischemia ASSESSMENT: 1. Involuntary movements, mild confusion, headache as per seizures vs pseudoseizures ? toxicologic 2. chronic diastolic HF as per records, patient on the dry side. 3. History of fibromyalgia as per records. 4. History of gastric bypass 5. past tobacco abuse PLAN: Observation PCU Hold home meds with potential to lower seizure threshold for now (e.g Tramadol and Bupropion) check Lyme, RPR MRI Brain (RE headache w/ involuntary movements) Reconsult Neurology RE involuntary jerks. Patient known to Dr. Hinton. Gentle IV hydration. DVT prophylaxis, Lovenox subQ. Full code. Px , Mr. Sabas Carty, requesting updates from providers at [phone]. MTDD
[2016-09-08] MEDS ORDERED: PROMETHAZINE HCL INJ 12.5 MG in SODIUM CHLORIDE 0.9% 50ML 50 ML IV STA (06:41)
[2016-09-08] MEDS ORDERED: hydrOXYzine HCL 10 MG TAB PO PRN (06:45)
[2016-09-08] MEDS: SUCRALFATE 1 GM/10 ML UDC PO SCH ×4 (07:37→21:27)
[2016-09-08] MEDS: PANTOprazole SOD 40 MG TAB PO SCH ×2 (07:38→21:29)
[2016-09-08] MEDS: ENOXAPARIN 40 MG/0.4 ML SYR SC SCH (07:39)
[2016-09-08] MEDS ORDERED: LANSOPRAZOLE SOLUTAB 30 MG PO SCH (09:00)
[2016-09-08] MEDS ORDERED: PREGABALIN 100 MG CAP PO SCH ×2 (09:00→16:00)
[2016-09-08] MEDS ORDERED: VENLAFAXINE HCL 50 MG TAB PO SCH (09:00)
[2016-09-08] MEDS ORDERED: PREGABALIN 100 MG CAP PO ONE (10:15)
[2016-09-08] MEDS ORDERED: VENLAFAXINE HCL 50 MG TAB PO ONE (10:15)
[2016-09-08] MEDS ORDERED: NURSING VERBAL MED ORDER ONE (13:45)
--- NOTE | 2016-09-08 14:15 | NEUROLOGY CONSULTATION ---
DATE OF CONSULTATION: 09/08/2016 REASON FOR CONSULTATION: Abnormal movement. HISTORY OF PRESENT ILLNESS: Mrs. Carty is a 56-year-old right-handed female with a history of chronic diastolic heart failure, fibromyalgia, mood disorder, anxiety, tobacco abuse in the past, sleep disorder and history of gastric bypass. The patient was recently hospitalized for an episode of unresponsiveness at which time she had had emesis. This is possibly medication related or medication overdose related. Dr. Hinton, my partner saw her at that time. EEG was performed and was unremarkable. MRI was noncontributory. She was on multiple medications that were thought to potentially lower her seizure threshold, including tramadol and Wellbutrin and it was recommended that she be seen as an outpatient and have a more protracted EEG to see if there was any evidence of epileptogenicity. The patient is a poor. She was discharged about 3 weeks ago. She woke up with uncontrolled swelling of the arms, legs and head. She was awake throughout the episode, she was mildly confused and complained of some mild headache. In the Emergency Room, she was seen, given Ativan and Benadryl and per the chart transient cessation of the involuntary movements were noted when the patient was told by the ER physician to stop the movement. She fell asleep, intermittent drowsiness and was sliding from the wheelchair upon attempts to discharge her from the ER and therefore the patient was admitted. She indicates that she had not felt well the last several days. She may have made errors in her medication, her Effexor dose was recently decreased by 25 b.i.d. She had felt changed her Lyrica from 100 t.i.d. to 200 in the morning and 100 nearly about 4:00 in the afternoon and none at night because she had had some insomnia. It is unclear if she could have made any medication errors, she self administers her medications and denies any other changes or withdrawal. Although I believe she was to stop Wellbutrin as well as tramadol, they appear to continue to be taken. When she was hospitalized last, there was discussion of some jerking movements during sleep, when she had been at home. Dr. Hinton did not note any tremor, tics or choreiform activity. The patient indicates to me that she fell 1 day prior to admission due to the jerks. On admission, her CT of the head, which I have reviewed, showed no hemorrhage, mass effect or acute ischemia. Her white count was 8.5, H\T\H 12/37.1, platelet count 232. PT 11.4, PTT 27.3. Chemistry profile notable for a lactic acid of 2.3 and normal CK and ammonia level of 18, a CK-MB of 4, troponin negative. Serum sodium 144, potassium 3.6, BUN and creatinine 20/1. Transaminases normal. Toxicology screen notable for positive MDMA and marijuana, ethyl alcohol less than 1. Serology - Lyme negative, RPR negative. PAST MEDICAL HISTORY: As above. No history of cancer. PAST SURGICAL HISTORY: Gastric bypass, knee surgery, and appendectomy. HOME MEDICATIONS: Tylenol, ProAir, baclofen, bupropion, B12, Prevacid, Prilosec, Zofran, Lyrica, Zantac, Carafate, Ultram, and Effexor. ALLERGIES: ASPIRIN, KEFLEX, CLONAZEPAM, WHICH PATIENT INDICATES GAVE HER SIMILAR JERKING TO THIS EVENT; CODEINE, HYDROCODONE, HYDROMORPHONE, BACTRIM AND NONSTEROIDALS. SOCIAL HISTORY: The patient is adopted. Past tobacco abuse. No alcohol intake. The patient uses marijuana. REVIEW OF SYSTEMS: Somewhat unreliable. No vaginal bleeding. PHYSICAL EXAMINATION: VITAL SIGNS: When admitted, she was mildly hypotensive at 85/69. Her current vitals - 37.4, 83, 20, 125/69, 95%. GENERAL: The patient appears chronically ill, dark circles under her eyes. She has some ecchymosis midline frontally, which appears to be fading. There is ecchymosis over the left elbow. She is modestly obese. She is mildly distractable. Moderate myoclonic jerks are noted with preserved consciousness. The patient is oriented x3, knew who the president was, had no aphasia. NECK: No carotid bruits are noted. HEART: No heart murmurs. ABDOMEN: Soft and nontender. NEUROLOGIC: Pupils are equal, round, reactive to light. The optic nerves unremarkable. Normal gilmore and motility. There is no opsoclonus noted. Normal facial sensation and facial symmetry. Speech and language are normal. There are random myoclonic jerks of the limbs. Some of them are of high amplitude. Tongue is midline. Motor 5/5. No drift. Normal rapid alternating movements. No rigidity noted. No drift. Symmetrically reduced reflexes. [id number] is mildly tremulous. [id number] is normal with intact sensation, temperature, vibration and light touch. IMPRESSION: This patient appears to have myoclonic jerks and some mild low level encephalopathy. The history is difficult to obtain. Certainly, the myoclonic jerks could be related to Lyrica use, especially if the patient was usually require than expected doses. I think it is possible that this represents Effexor withdrawal and I have increased the Effexor back to 100 b.i.d. I have made no change in Lyrica at present. I have ordered an ammonia which is to come back as normal. I would like psychiatry to see her as well. I think the first initial step should be resuming the Effexor at its usual dose. Many things are helpful for myoclonic jerks including Keppra but I think we need to determine the underlying etiology, which in this case is likely medication related. I do not see any evidence that this represents a disorder such as opsoclonus myoclonus. It may be reasonable to repeat an EEG during this admission. Given recent hx of prior sz would advocate for no further ultram or wellbutrin.Will follow with you. MTDD
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
[2016-09-08] MEDS ORDERED: RANITIDINE HCL 150 MG TAB PO SCH (21:00)
[2016-09-08] MEDS: VENLAFAXINE HCL 50 MG TAB PO SCH (21:28)
[2016-09-09 06:45] VITALS: BP 144/89; PULSE 54; TEMP 36.5; O2SAT 99
[2016-09-09] MEDS: SUCRALFATE 1 GM/10 ML UDC PO SCH ×2 (07:29→11:30)
[2016-09-09] MEDS: PANTOprazole SOD 40 MG TAB PO SCH (07:29)
[2016-09-09] MEDS: ENOXAPARIN 40 MG/0.4 ML SYR SC SCH (07:30)
[2016-09-09] MEDS: VENLAFAXINE HCL 50 MG TAB PO SCH (07:30)
[2016-09-09] MEDS ORDERED: PREGABALIN 100 MG CAP PO SCH (08:00)
[2016-09-09 08:13] LABS: BASO ABS # 0.07 K/uL (0-0.2); COMPLETE YES; EOS % 4.4 %; HEMATOCRIT 37.9 % (37-47); LYMPH % 38.3 %; LYMPH ABS # 2.69 K/uL (1.2-3.4); MEAN CELL VOLUME 95.5 fL (80-100); MEAN CORPUSCULAR HEMOGLOBIN 30.5 pg (25-34); MEAN CORPUSCULAR HGB CONC 31.9 g/dl (32-36); MEAN PLATELET VOLUME 10.3 fL (7.4-10.4); MONO % 9.1 %; NEUT % 47.2 %; PLATELET COUNT 249 K/uL (130-400); RED BLOOD COUNT 3.97 M/uL (4.2-5.4); WHITE BLOOD COUNT 7.02 K/uL (4.8-10.8)
--- NOTE | 2016-09-09 10:34 | Psychiatric Progress Notes ---
Psychiatric Progress Note Date of Service September 09, 2016. Notes ID: Patient reviewed with liaison nurse. I personally participated in the medical decision making outlined in the initial consult by ROYCE Gibson on 09/08/16. CC: "I'm so much better" HPI: no issues overnight, clear this am, joined and confirms taking meds as prescribed, she attributes tolerability issues to her weight/fluid fluctuations and absorption issues following gastric bypass rather than misuse or combo with ROS: bruise on forehead. otherwise denies SI/HI/street MSE: alert, cooperative, no abnormal motor movements, thoughts organized Imp: MDD with anxiety Plan: initial consult refers to desirable to reduce lamictal, ROYCE meant Lyrica , defer to prescriber agree no indication for inpatient psych admit and need to avoid benzos DERREK's completed to update outpatient provider and has f/u with Dr. Black would not resume Wellbutrin at this time.
[2016-09-09] MEDS ORDERED: SUCRALFATE 1 GM/10 ML UDC PO SCH (11:00)
[2016-09-09] MEDS ORDERED: EFFSR75 PO (11:58)
[2016-09-09] MEDS ORDERED: VENL100T2 PO (12:03)
--- NOTE | 2016-09-09 12:08 | Discharge Instructions ---
Discharge Instructions Date of Service September 09, 2016. Admission Reason for Admission: Alteration Consciousness Discharge Discharge Diagnosis / Problem: INVOLUNTARY LIMB MOVEMENTS/MUSCLE TWICTHING / DEPRESSION Discharge Goals Goal(s): Diagnostic testing, Therapeutic intervention Activity Recommendations Activity Limitations: resume your previous activity . Instructions / Follow-Up Instructions / Follow-Up HOSPITAL FOLLOW UP ON 09/16/2016 @ 11:[address] Kvng Ceron DO General Internal Medicine [facility] NEUROLOGY FOLLOW UP ON 09/26/2016 1:[address] Ramo Hinton MD Neurology [facility] DO NOT TAKE WELLBUTRIN /TRAMADOL -REDUCES SEIZURE THRESHOLD EFFEXOR CONTINUE 100 MG TWICE DAILY -SCRIPT SENT TO PHARMACY NEED TO STOP SMOKING MARIJUANA , AND STOP DRINKING ALCOHOL Current Hospital Diet Patient's current hospital diet: AHA Diet (Heart Healthy) Discharge Diet Recommended Diet: AHA Diet (Heart Healthy) Pending Studies Studies pending at discharge: no Medical Emergencies . Who to Call and When: Medical Emergencies: If at any time you feel your situation is an emergency, please call 911 immediately. . Non-Emergent Contact Non-Emergency issues call your: Primary Care Provider . . "Provider Documentation" section prepared by Lupis Bach. . VTE Core Measure Inpt VTE Proph given/why not?: Enoxaparin (Lovenox)SQ
--- NOTE | 2016-09-09 12:20 | Discharge Summary ---
Discharge Summary Date of Service September 09, 2016. Discharge Summary Admission Date: September 08, 2016 at 00:06 Discharge Date: September 09, 2016 Discharge Disposition: Home Principal Diagnosis: INVOLUNTARY LIMB MOVEMENTS/MUSCLE TWITCHING /DEPRESSION Secondary Diagnoses/Problems: Medical Problems: (1) Anxiety Status: Chronic (2) Congestive heart failure, unspecified Permanent Comment: echo 03/25/13-grade 1 diastolic dysfunction with mild concentric LVH Status: Chronic (3) Depression Status: Chronic (4) Dyslipidemia Status: Chronic (5) Fibromyalgia Status: Chronic (6) GERD (gastroesophageal reflux disease) Status: Chronic (7) Organic sleep disorder Status: Chronic (8) Osteoarthritis Status: Chronic (9) Restless legs Status: Chronic Surgical Problems: (1) Gastric bypass status for obesity Status: Chronic (2) H/O arthroscopic knee surgery Permanent Comment: R knee; 1999 Status: Chronic (3) Hx of appendectomy Status: Chronic (4) S/P bronchoscopy Status: Chronic (5) S/p EGD Permanent Comment: 11/24/2014- small ulcers at anastamosis, brandy removed/ [facility] Status: Chronic Procedures: CT HEAD WITH OUT CONTRAST : no acute intracranial process CHEST XRAY IMPRESSION: Prominent perihilar parenchymal and bronchovascular markings. Potential pulmonary arterial hypertension. No significant mid to peripheral lung infiltrative process Consultations: NEUROLOGY DR BLOUNT PSYCHIATRY Medication Reconciliation New Medications: Venlafaxine Hcl (Effexor) 100 Mg Tab 100 MG PO BID for 30 Days, #60 TAB Continued Medications: Acetaminophen/Diphenhydramine (Tylenol Pm) 500 Mg/25 Mg Tab 1 TAB PO UD Albuterol Sulfate (Proair Respiclick) 108 Mcg/Act Aer 2 PUFFS INH QID Baclofen (Lioresal) 10 Mg Tab 5 MG PO BID, TAB Cyanocobalamin (Cyanocobalamin) 1,000 Mcg/Ml Inj 1000 MCG INJ [id number] Lansoprazole (Prevacid Solutab) 30 Mg Mindy 30 MG PO DAILY, TAB Omeprazole (Prilosec) 20 Mg Cap 20 MG PO BID Ondansetron Hcl (Zofran) 4 Mg Tab 4 MG PO Q6 PRN for Nausea, TAB Pediatric Multiple Vitamins W/ (Flintstones Plus Iron) 1 Chw Chw 2 TAB PO QAM Pregabalin (Lyrica) 100 Mg Cap 100 MG PO TID, CAP Ranitidine Hcl (Zantac) 300 Mg Tab 300 MG PO HS, TAB Sucralfate (Carafate) 1 Gm/10 Ml Susp 1 GM PO QID, ML Discontinued Medications: Bupropion HCl (Bupropion HCl) 75 Mg Tab 75 MG PO DAILY Tramadol (Ultram) 50 Mg Tab 50 MG PO Q12 PRN for Pain, TAB Venlafaxine Hcl (Effexor) 75 Mg Tab 75 MG PO BID, TAB Referrals At Discharge Follow up Referrals: Neurologist Referral - 09/26/16 with Ramo Blount M.D. (MEDICINE) Admission Information HPI (per Admitting provider): DATE OF ADMISSION: 09/08/2016 PRIMARY CARE DOCTOR: Dr. Ceron History was obtained from and the patient's records. Unable to obtain hx from px 2 to obtunded state. HISTORY OF PRESENT ILLNESS: Medical history is significant for chronic diastolic heart failure, fibromyalgia , mood disorder, anxiety, past tobacco abuse, sleep disorder as per records and history of gastric bypass. Recent confinement was in last month for unresponsiveness, possibly from drug overdose. Patient was initially intubated for airway protection. Neurology was consulted for possible seizures. EEG was unremarkable. As per neurologist's note, possible seizure. Plan was to prolonged EEG. Yesterday, the patient woke up with uncontrolled flailing of the arms and legs and head. Patient was awake throughout the episodes. A little confused as per . C/o headache going from front to back. At the Emergency Room, px given Ativan and Benadryl. As per RN, transient cessation of involuntary movements when ER physician told patient to stop. Px feel asleep. Intermittent drowsiness and sliding from the wheelchair upon attempts to dc px from the ER. Px was was about to be discharged from the ER. MEDICAL HISTORY: As above. SURGERIES: Gastric bypass, knee surgery and appendectomy. HOME MEDICATIONS: Include; Tylenol, ProAir, baclofen, bupropion cyanocobalamin, Prevacid Prilosec, Zofran, Lyrica, Zantac, Carafate, Ultram, Effexor ALLERGIES aspirin, keflex, clonazepam, codeine, hydrocodone, hydromorphone, Bactrim and NSAIDs. FAMILY HISTORY: Could not be obtained secondary to adoption. PERSONAL AND SOCIAL HISTORY: Past tobacco abuse. No chronic intake of alcoholic beverages. On disability ROS could not be reliably obtained. Physical Exam (per Admitting): PHYSICAL EXAMINATION: VITAL SIGNS: Blood pressure noted to be 85/69, pulse rate 60, RR 16, temperature 36.3 and sats 98 on room air. GENERAL: Noted to be obtunded, no respiratory distress. Occasional lower extremity twitches, snoring. SKIN: Normal color. HEENT: Hortense palpebral conjunctivae. Dry mucosa. NECK: No JVD. Supple. CHEST: Decreased effort. HEART: Regular rate and rhythm. ABDOMEN: Some distention, non tender. EXTREMITIES: Minimal LE edema, no tenderness. NEUROLOGIC: Obtunded, miotic pupils. Hospital Course INVOLUNTARY MOVEMENTS /MYOCLONIC JERKS : not typical for seizure activity symptom has resolved CT head -negative for acute change pt had detail neurological testing including EEG done in her recent admission due to similar presentation associated with drug over dose /abuse pt denies of taking any extra dose or meds or missing dose appreciate input for Neurology and Psychiatry -Wellbutrin and Tramadol D/riya for potential of lowering seizure threshold Effexor dose was lowered recently --which can also potentially cause with Sz Effexor increased to prior dose of 100 mg PO bid will have continued follow up with her Psychiatry Dr Black scheduled to see Neurology Dr Blount end of this Month pt is counselled to avoid smoking Marijuana and drinking ETOH HX OF DEPRESSION ; cont Effexor , dose increased to prior Wellbutrin D/riya cont to follow up pt with Psych HX OF FIBROMYALGIA: Cont Lyrica avoid Narcotics and sedatives for addiction potential ' DISPOSITION ; stable to be discharged home today Discharge Instructions Discharge Instructions Date of Service September 09, 2016. Admission Reason for Admission: Alteration Consciousness Discharge Discharge Diagnosis / Problem: INVOLUNTARY LIMB MOVEMENTS/MUSCLE TWITCHING / DEPRESSION Discharge Goals Goal(s): Diagnostic testing, Therapeutic intervention Activity Recommendations Activity Limitations: resume your previous activity . Instructions / Follow-Up Instructions / Follow-Up HOSPITAL FOLLOW UP ON 09/16/2016 @ 11:[address] Kvng Ceron DO General Internal Medicine [facility] NEUROLOGY FOLLOW UP ON 09/26/2016 1:[address] Ramo Blount MD Neurology [facility] DO NOT TAKE WELLBUTRIN /TRAMADOL -REDUCES SEIZURE THRESHOLD EFFEXOR CONTINUE 100 MG TWICE DAILY -SCRIPT SENT TO PHARMACY NEED TO STOP SMOKING MARIJUANA , AND STOP DRINKING ALCOHOL Current Hospital Diet Patient's current hospital diet: AHA Diet (Heart Healthy) Discharge Diet Recommended Diet: AHA Diet (Heart Healthy) Pending Studies Studies pending at discharge: no Medical Emergencies . Who to Call and When: Medical Emergencies: If at any time you feel your situation is an emergency, please call 911 immediately. . Non-Emergent Contact Non-Emergency issues call your: Primary Care Provider . . "Provider Documentation" section prepared by Lupis Bach. . VTE Core Measure Inpt VTE Proph given/why not?: Enoxaparin (Lovenox)SQ Additional Copies To Kvng Ceron D.O. Mateer, John, M.D. (MEDICINE)
[2016-09-09 12:36] VITALS: BP 144/89; PULSE 54; TEMP 36.5; O2SAT 99
[2016-09-12 01:06] LABS: RAPID PLASMA REAGIN NONREACTIVE (NONREACT)
--- NOTE | 2016-09-16 10:08 | EDITING REQUIRED CODING QUERY ---
CQSUPPORTING DIAGNOSIS NEEDED A supporting diagnosis is required for the test/procedure performed on this patient in order for us to be reimbursed by the patient's insurance. Please provide a supporting diagnosis for the following test/procedure listed below next to the test name along with your signature. *If there is no additional diagnosis for this patient that would support the following test/procedure please document that below next to the test/procedure. Test(s)/Procedure(s) that require a supporting diagnosis: DOS 09/07/16 SCREENING FOR SEXUALLY TRANSMITTED DISEASE (OBSERVATION BED) Pt presented with reported Seizure activity, changed mental status Hx of poly substance abuse including IV drugs RPR screen ordered as part of screening test by Neurology for possible encephalopathy due to syphilis /STD Provider Signature: Lupis Bach Date: ____09/18/16 ___ Thank you Rufina King Health Information Management Once completed, please kindly fax back to [phone] For questions please call [phone]
[2016-11-26] MEDS ORDERED: HYDR25CA PO (10:44)
[2016-11-26] MEDS ORDERED: EFFEXOR PO (10:44)
[2017-01-24] MEDS ORDERED: CYNI1000 IM (02:21)
[2017-01-24] MEDS ORDERED: CALC1TAB9 PO (10:44)
[2017-01-24] MEDS ORDERED: PREG100C PO (10:44)
[2017-01-24] MEDS ORDERED: DIPH-437 PO (10:44)
== END 2016-09-09 15:00 | disposition home or self-care (01) ==
LOC: ENRESERVDT → ENRESERVTM → C.EDB 16:22 → C.2T 09-08 00:06 → C.MS4W 09-08 19:20
PROVIDERS: ADMIT Internal Medicine; ATTEND Hospitalist
DX: R25.9 Unspecified abnormal involuntary movements (principal); F32.9 Major depressive disorder, single episode, unspecified; F12.10 Cannabis abuse, uncomplicated; I11.0 Hypertensive heart disease with heart failure; I50.32 Chronic diastolic (congestive) heart failure; E78.5 Hyperlipidemia, unspecified; M79.7 Fibromyalgia; K21.9 Gastro-esophageal reflux disease without esophagitis; M19.90 Unspecified osteoarthritis, unspecified site; G25.81 Restless legs syndrome; J44.9 Chronic obstructive pulmonary disease, unspecified; G47.33 Obstructive sleep apnea (adult) (pediatric); F33.0 Major depressive disorder, recurrent, mild; Z90.49 Acquired absence of other specified parts of digestive tract; Z98.84 Bariatric surgery status; Z87.891 Personal history of nicotine dependence; R56.9 Unspecified convulsions; R41.82 Altered mental status, unspecified; F19.21 Other psychoactive substance dependence, in remission

== ENCOUNTER → 2016-12-03 | Day surgery (SDC) | payer OTHER ==
[2016-11-26 10:45] VITALS: BMI 31.0
[~2016-12-03] VITALS: Ht 160 cm; Wt 79.5 kg
[~2016-12-03] MED LIST changes: +ACET-1138 PO; +ALBU18002 INH; -ALPR0.25 PO; +BUSP-8 PO; +CALC1TAB9 PO; +CHOL1TAB76 PO; +CYNI1000 IM; -EFF75 PO; +EFFEXOR PO; -FRS/40 PO; +HYDR1CAP85 PO; +HYDR25CA PO; +LIDOCAINE HCL 2% 2 ML VIAL (20MG/ML) ONE; +LRS10 PO; +LYR100 PO; +MIDAZOLAM HCL 1 MG/ML 2ML VIAL ONE; +OMEP20CA9 PO; +ONDA4TAB65 PO; +ONDANSETRON INJ 2 MG/ML 2 ML VIAL IV PRN; +OXYC10SO PO; +PEDICHW44 PO; +PROPOFOL IV EMULSION 10 MG/ML 20 ML VIAL IV ONE; +SODIUM CHLORIDE 0.9% 500ML 500 ML IV ONE; +SUCR1TAB PO; +VENL100T2 PO; -WLL100 PO
[2016-12-03 12:13] VITALS: Ht 160 cm; Wt 79.5 kg
--- NOTE | 2016-12-03 12:41 | Endo History and Physical ---
History & Physical Date of Service: Dec 03, 2016. Chief Complaint: Hx colon polyps, epigastric pain Referring Physician: Dr. Ceron History of Present Illness Patient referred for evaluation of epigastric discomfort. She does have a history of a gastric bypass and has had anastomotic ulcers in the past. She denies having difficulty swallowing or pain with swallowing. She is also referred for colon polyp surveillance her last colonoscopy was several years ago. Past Medical History Osteoporosis, Arthritis, CHF, COPD, Kidney Disease, Depression Past Surgical History Hx Cardiac Surgery: No Hx Internal Defibrillator: No Hx Pacemaker: No Hx Abdominal Surgery: Yes (GASTRIC BYPASS, APPY) Hx of Implantable Prosthesis: No Hx Post-Op Nausea and Vomiting: No Hx Cancer Surgery: No Hx Thoracic Surgery: No Hx Orthopedic: Yes (RT RCR, RT KNEE SCOPE) Hx Urinary Tract Surgery: No Gastric bypass Family History None Social History Smoking Status: Former Smoker Hx Substance Use: No (PT DENIES - REFER TO RECENT ER VISIT 10-09-16) Hx Alcohol Use: No (PT DENIES - REFER TO RECENT ER VISIT 10-09-16) Allergies Coded Allergies: Codeine (Verified Allergy, Intermediate, DIARRHEA/RASH,TOLERATES PERCOCET , 11/26/16) TOLERATES PERCOCET Clonazepam (Verified Allergy, Unknown, "PASS OUT", 11/26/16) NSAIDs (Verified Allergy, Unknown, UNKNOWN, 11/26/16) Sulfamethoxazole w/Trimethoprim (Verified Adverse Reaction, Intermediate, DELIRIUM, 11/26/16) pt devoped invontary muscle spasm ; Aspirin (Verified Adverse Reaction, Unknown, STOMACH IRRITATION, 11/26/16) Cephalexin (Verified Adverse Reaction, Unknown, GI SYMPTOMS, 11/26/16) UPSET STOMACH Hydrocodone (Verified Adverse Reaction, Unknown, OVESEDATION, 11/26/16) Hydromorphone (Verified Adverse Reaction, Unknown, weakness,sweating, 11/26) Current Medications Reported Home Medications Medications Dose Route/Sig Max Daily Dose Days Date Category Citracal + D3 Maximum (Calcium Citrate-Vitamin D) 1 Tab Tab 1 Tab PO DAILY 11/26/16 Reported Tylenol Pm (Diphenhydramine-Acetaminophen) 1 Tab Tab 1 Tab PO HS 11/26/16 Reported Vistaril (Hydroxyzine Pamoate) 25 Mg Cap 1 Cap PO TID PRN 11/26/16 Reported [Effexor] 100 Mg PO BID 11/26/16 Reported Lyrica (Pregabalin) 100 Mg Cap 100 Mg PO HS 11/26/16 Reported Zofran (Ondansetron Hcl) 4 Mg Tab 4 Mg PO Q6 PRN 09/07/16 Reported Proair Respiclick (Albuterol Sulfate) 108 Mcg/Act Aer 2 Puffs INH QID 09/07/16 Reported Lioresal (Baclofen) 10 Mg Tab 5 Mg PO BID 08/15/16 Reported Cyanocobalamin 1,000 Mcg/Ml Inj 1,000 Mcg INJ [id number] 06/19/16 Reported Lyrica (Pregabalin) 100 Mg Cap 2 Tabs PO QAM 05/29/16 Reported Carafate (Sucralfate) 1 Gm/10 Ml Susp 1 Gm PO QID 05/29/16 Reported Flintstones Plus Iron (Pediatric Multiple Vitamins W/) 1 Chw Chw 2 Tab PO QAM 03/17/16 Reported Prilosec (Omeprazole) 20 Mg Cap 20 Mg PO BID 12/06/13 Reported Vital Signs Weight (Kilograms): 79.55 Height (Feet): 5 Height (Inches): 3 Date Time Temp Pulse Resp B/P (MAP) Pulse Ox O2 Delivery O2 Flow Rate FiO2 12/03/16 12:19 36.1 63 16 140/81 (100) 100 Room Air Physical Exam General Appearance: no apparent distress Respiratory/Chest: Auscultation: breath sounds normal Cardiovascular: Heart Auscultation: RRR Abdomen: Inspection & Palpation: soft Assessment and Plan Patient referred for upper endoscopy to evaluate a history of abdominal discomfort. She is also been referred for colonoscopy or history of colonic polyps. We have discussed the risks and benefits of the procedures to include bleeding, infection, perforation and missed polyps.
--- NOTE | 2016-12-03 13:30 | GI REPORT ---
Procedure Date: 12/03/2016 12:31 PM Procedure: Upper GI endoscopy Indications: Epigastric abdominal pain Medicines: Monitored Anesthesia Care Complications: No immediate complications. Estimated blood loss: Minimal. Estimated Blood Loss: Estimated blood loss was minimal. Procedure: Pre-Anesthesia Assessment: - Prior to the procedure, a History and Physical was performed, and patient medications, allergies and sensitivities were reviewed. The patient's tolerance of previous anesthesia was reviewed. - The risks and benefits of the procedure and the sedation options and risks were discussed with the patient. All questions were answered and informed consent was obtained. - Patient identification and proposed procedure were verified prior to the procedure by the physician, the nurse and the resource manager forester. The procedure was verified in the procedure room. - Pre-procedure physical examination revealed no contraindications to sedation. - ASA Grade Assessment: III - A patient with severe systemic disease. - After reviewing the risks and benefits, the patient was deemed in satisfactory condition to undergo the procedure. - The anesthesia plan was to use monitored anesthesia care (MAC). - Immediately prior to administration of medications, the patient was re-assessed for adequacy to receive sedatives. - The heart rate, respiratory rate, oxygen saturations, blood pressure, adequacy of pulmonary ventilation, and response to care were monitored throughout the procedure. - The physical status of the patient was re-assessed after the procedure. After obtaining informed consent, the endoscope was passed under direct vision. Throughout the procedure, the patient's blood pressure, pulse, and oxygen saturations were monitored continuously. The scope was introduced through the mouth, and advanced to the jejunum. The upper GI endoscopy was accomplished without difficulty. The patient tolerated the procedure well. Findings: The upper third of the esophagus and middle third of the esophagus were normal. A small hiatus hernia was found. The proximal extent of the gastric folds (end of tubular esophagus) was 37 cm from the incisors. The hiatal narrowing was 39 cm from the incisors. The Z-line was 37 cm from the incisors. Evidence of a gastric bypass was found. A gastric pouch with a small size was found. The staple line appeared intact. The gastrojejunal anastomosis was characterized by healthy appearing mucosa. This was traversed. The bnyzb-nf-prvigde limb was characterized by healthy appearing mucosa. The ifgkqxqq-im-eubzuoz limb was not examined as it could not be reached. Impression: - Normal upper third of esophagus and middle third of esophagus. - Small hiatus hernia. - Gastric bypass with a small-sized pouch and intact staple line. Gastrojejunal anastomosis characterized by healthy appearing mucosa. - No specimens collected. Recommendation: - Perform a colonoscopy today. - Observe patient's clinical course following today's procedure with therapeutic intervention. Dorina Le D.O. Dorina Le, 12/03/2016 1:29:33 PM This report has been signed electronically. Note Initiated On: 12/03/2016 12:31 PM I attest to the content of the Intraoperative Record and orders documented therein, exceptions below
--- NOTE | 2016-12-03 13:32 | GI REPORT ---
Procedure Date: 12/03/2016 12:30 PM Procedure: Colonoscopy Indications: High risk colon cancer surveillance: Personal history of colonic polyps Medicines: Monitored Anesthesia Care Complications: No immediate complications. Estimated blood loss: Minimal. Estimated Blood Loss: Estimated blood loss was minimal. Estimated blood loss was minimal. Procedure: Pre-Anesthesia Assessment: - Prior to the procedure, a History and Physical was performed, and patient medications, allergies and sensitivities were reviewed. The patient's tolerance of previous anesthesia was reviewed. - The risks and benefits of the procedure and the sedation options and risks were discussed with the patient. All questions were answered and informed consent was obtained. - Patient identification and proposed procedure were verified prior to the procedure by the physician, the nurse and the manager graphic. The procedure was verified in the procedure room. - Pre-procedure physical examination revealed no contraindications to sedation. - ASA Grade Assessment: III - A patient with severe systemic disease. - After reviewing the risks and benefits, the patient was deemed in satisfactory condition to undergo the procedure. - The anesthesia plan was to use monitored anesthesia care (MAC). - Immediately prior to administration of medications, the patient was re-assessed for adequacy to receive sedatives. - The heart rate, respiratory rate, oxygen saturations, blood pressure, adequacy of pulmonary ventilation, and response to care were monitored throughout the procedure. - The physical status of the patient was re-assessed after the procedure. After I obtained informed consent, the scope was passed under direct vision. Throughout the procedure, the patient's blood pressure, pulse, and oxygen saturations were monitored continuously. The Scope was introduced through the anus and advanced to the terminal ileum. The colonoscopy was performed without difficulty. The patient tolerated the procedure well. The quality of the bowel preparation was fair. Findings: The perianal and digital rectal examinations were normal. Pertinent negatives include normal sphincter tone. The terminal ileum appeared normal. A 8 mm polyp was found in the descending colon. The polyp was sessile. The polyp was removed with a hot snare. Resection and retrieval were complete. Estimated blood loss was minimal. Internal hemorrhoids were found during retroflexion. The hemorrhoids were mild. The exam was otherwise without abnormality. Impression: - The examined portion of the ileum was normal. - One 8 mm polyp in the descending colon, removed with a hot snare. Resected and retrieved. - Internal hemorrhoids. - The examination was otherwise normal. Recommendation: - Discharge patient to home (ambulatory). - Advance diet as tolerated today. - Await pathology results. - Repeat colonoscopy in 3 years because the bowel preparation was suboptimal. - Return to GI office PRN. Dorina Le D.O. Dorina Le, 12/03/2016 1:32:04 PM This report has been signed electronically. Note Initiated On: 12/03/2016 12:30 PM I attest to the content of the Intraoperative Record and orders documented therein, exceptions below
--- NOTE | 2016-12-03 13:33 | Discharge Instructions ---
Endoscopy Patient Instructions Date / Procedure(s) Performed Dec 03, 2016. Colonoscopy, EGD Allergy Information Coded Allergies: Codeine (Verified Allergy, Intermediate, DIARRHEA/RASH,TOLERATES PERCOCET , 11/26/16) TOLERATES PERCOCET Clonazepam (Verified Allergy, Unknown, "PASS OUT", 11/26/16) NSAIDs (Verified Allergy, Unknown, UNKNOWN, 11/26/16) Sulfamethoxazole w/Trimethoprim (Verified Adverse Reaction, Intermediate, DELIRIUM, 11/26/16) pt devoped invontary muscle spasm ; Aspirin (Verified Adverse Reaction, Unknown, STOMACH IRRITATION, 11/26/16) Cephalexin (Verified Adverse Reaction, Unknown, GI SYMPTOMS, 11/26/16) UPSET STOMACH Hydrocodone (Verified Adverse Reaction, Unknown, OVESEDATION, 11/26/16) Hydromorphone (Verified Adverse Reaction, Unknown, weakness,sweating, 11/26) Discharge Date / Findings Dec 03, 2016. Small hiatal hernia 1 colonic polyp Internal hemorrhoids Medication Instructions Reported Home Medications Medications Dose Route/Sig Max Daily Dose Days Date Category Citracal + D3 Maximum (Calcium Citrate-Vitamin D) 1 Tab Tab 1 Tab PO DAILY 11/26/16 Reported Tylenol Pm (Diphenhydramine-Acetaminophen) 1 Tab Tab 1 Tab PO HS 11/26/16 Reported Vistaril (Hydroxyzine Pamoate) 25 Mg Cap 1 Cap PO TID PRN 11/26/16 Reported [Effexor] 100 Mg PO BID 11/26/16 Reported Lyrica (Pregabalin) 100 Mg Cap 100 Mg PO HS 11/26/16 Reported Zofran (Ondansetron Hcl) 4 Mg Tab 4 Mg PO Q6 PRN 09/07/16 Reported Proair Respiclick (Albuterol Sulfate) 108 Mcg/Act Aer 2 Puffs INH QID 09/07/16 Reported Lioresal (Baclofen) 10 Mg Tab 5 Mg PO BID 08/15/16 Reported Cyanocobalamin 1,000 Mcg/Ml Inj 1,000 Mcg INJ [id number] 06/19/16 Reported Lyrica (Pregabalin) 100 Mg Cap 2 Tabs PO QAM 05/29/16 Reported Carafate (Sucralfate) 1 Gm/10 Ml Susp 1 Gm PO QID 05/29/16 Reported Flintstones Plus Iron (Pediatric Multiple Vitamins W/) 1 Chw Chw 2 Tab PO QAM 03/17/16 Reported Prilosec (Omeprazole) 20 Mg Cap 20 Mg PO BID 12/06/13 Reported Provider Instructions Activity Restrictions - No exercising or heavy lifting for 24 hours. - Do not drink alcohol the day of the procedure. - Do not drive a car or operate machinery until the day after the procedure. - Do not make any important decisions or sign important papers in 24 hours after the procedure. Following Day: - Return to full activity which may include returning to work/school. Diet Start your diet with liquids and light foods (jello, soup, juice, toast). Then eat your usual diet if not nauseated. Treatment For Common After Affects For mild abdominal pain, bloating, or excessive gas: - Rest - Eat lightly - Lie on right side Follow-Up Information Follow-up with Dr. Ceron as scheduled Repeat colonoscopy in 3 years for follow-up purposes Anesthesia Information What You Should Know You have had a procedure that required some medicine to reduce anxiety and discomfort. This treatment is called moderate sedation. After receiving the treatment, you may be sleepy, but you will be able to breathe on your own. The effects of the treatment may last for several hours. Follow these instructions along with Activity/Diet recommendations noted above: * Do NOT do anything where dizziness or clumsiness would be dangerous. * Rest quietly at home today, then you can be up and about tomorrow. * Have a responsible person stay with you the rest of today. * You may have had an I.V. today. If so, you may take the dressing off later today. Recommendations Call your doctor if: * Trouble breathing * Continuous vomiting for more than 24 hours * Temperature above 101 degrees * Severe abdominal pain or bloating * Pain not relieved by pain medicine ordered * There is increased drainage or redness from any incision * A large amount of rectal bleeding greater than 2-3 tablespoons. (If you had a polyp/s removed or have hemorrhoids, a small amount of blood - from the rectum is to be expected.) * You have any unanswered questions or concerns. IN THE EVENT OF A SERIOUS EMERGENCY, GO TO THE NEAREST EMERGENCY ROOM Your discharge instructions were prepared by provider Dorina Le. Patient Instructions Signature Page Alvina Carty Patient (or Guardian) Signature/Date: I have read and understand the instructions given to me by my caregivers. Caregiver/RN/Doctor Signature/Date: The above-named patient and/or guardian has received patient instructions on this date. + Original Patient Signature Page (only) stays with chart. Please make copy for patient.
[2016-12-03 13:55] VITALS: BP 103/58; PULSE 77; O2SAT 97
--- NOTE | 2016-12-03 14:09 | Anesthesiology Progress Note ---
Anesthesia Post Op Note Date & Time Dec 03, 2016 at 14:09 Vital Signs Pain Intensity: 0 Vital Signs Past 12 Hours Date Time Temp Pulse Resp B/P (MAP) Pulse Ox O2 Delivery O2 Flow Rate FiO2 12/03/16 13:55 77 20 103/58 (73) 97 Room Air 12/03/16 13:44 69 20 110/79 (89) 100 Room Air 12/03/16 13:33 67 20 100/55 (70) 100 Room Air 12/03/16 12:19 36.1 63 16 140/81 (100) 100 Room Air Notes Mental Status: alert / awake / arousable, participated in evaluation Pt Amnestic to Procedure: Yes Nausea / Vomiting: adequately controlled Pain: adequately controlled Airway Patency, RR, SpO2: stable & adequate BP & HR: stable & adequate Hydration State: stable & adequate Anesthetic Complications: no major complications apparent
== END | disposition home or self-care (01) ==
LOC: C.GI 11:54
PROVIDERS: ATTEND Internal Medicine Gastroenterology
DX: Z12.11 Encounter for screening for malignant neoplasm of colon (principal); D12.4 Benign neoplasm of descending colon; K64.8 Other hemorrhoids; K44.9 Diaphragmatic hernia without obstruction or gangrene; Z98.84 Bariatric surgery status; Z86.010 Personal history of colon polyps; I50.9 Heart failure, unspecified; J44.9 Chronic obstructive pulmonary disease, unspecified; N18.9 Chronic kidney disease, unspecified; M81.0 Age-related osteoporosis without current pathological fracture; F32.9 Major depressive disorder, single episode, unspecified; Z87.891 Personal history of nicotine dependence; Z79.899 Other long term (current) drug therapy

== ENCOUNTER 2017-01-24 17:14 | Observation (INO) | payer OTHER ==
[~2017-01-24] VITALS: Ht 160 cm; Wt 88.2 kg
[~2017-01-24 17:14] MED LIST changes: -ACET-1138 PO; -BUSP-8 PO; -CHOL1TAB76 PO; -HYDR1CAP85 PO; -LIDOCAINE HCL 2% 2 ML VIAL (20MG/ML) ONE; -LRS10 PO; -LYR100 PO; -MIDAZOLAM HCL 1 MG/ML 2ML VIAL ONE; -OMEP20CA9 PO; -ONDA4TAB65 PO; -ONDANSETRON INJ 2 MG/ML 2 ML VIAL IV PRN; -OXYC10SO PO; -PEDICHW44 PO; -PROPOFOL IV EMULSION 10 MG/ML 20 ML VIAL IV ONE; -SODIUM CHLORIDE 0.9% 500ML 500 ML IV ONE; -SUCR1TAB PO; -VENL100T2 PO; -VNTHFA/IN INH
[2017-01-24] MEDS ORDERED: SODIUM CHLORIDE 0.9% 1000ML 1,000 ML IV STA ×2 (17:52→22:18)
[2017-01-24] MEDS ORDERED: MoRPHine SULFATE 4 MG/ML 1 ML CARP\\VIAL IV STA ×3 (17:52→22:18)
[2017-01-24] MEDS ORDERED: ONDA4TAB65 PO (17:59)
[2017-01-24 18:19] LABS: BASO % 0.2 %; BASO ABS # 0.02 K/uL (0-0.2); COMPLETE YES; EOS % 0.6 %; HEMATOCRIT 38.1 % (37-47); IG% 0.2 %; LYMPH ABS # 0.91 K/uL (1.2-3.4); MEAN CORPUSCULAR HEMOGLOBIN 31.4 pg (25-34); MEAN CORPUSCULAR HGB CONC 33.1 g/dl (32-36); MEAN PLATELET VOLUME 10.8 fL (7.4-10.4); MONO % 9.4 %; NEUT % 78.6 %; PLATELET COUNT 188 K/uL (130-400); RED BLOOD COUNT 4.01 M/uL (4.2-5.4); WHITE BLOOD COUNT 8.27 K/uL (4.8-10.8)
--- NOTE | 2017-01-24 18:30 | EMERGENCY ROOM VISIT NOTE ---
History Report prepared by [place]: Minh Lyons Under the Supervision of: Dr. Joanna Arias D.O. First contact with patient: 17:26 Chief Complaint: ABDOMINAL PAIN Stated Complaint: AB PAIN Nursing Triage Summary: patient arrived via EMS. C/O abdominal pain all over abdomen that is achey and with movement she has sharp pains. Pt states pain began this morning and with sharp pains gets nauseaous and had dry heaves once this morning. Pt reports "normal for me" BM this am. Hx gastric bypass surgery in 2013. Friday pt had lap joey and hiatal hernia repair in [facility]. Pt stdates she took her last liquid oxy today around 11-1230 and has been taking Acetaminophen 500mg every 4 to 4 1/2 hours, states she was taking 2-3 pills, now is taking 3-4 every 4-41/2 hours. History of Present Illness The patient is a 56 year old female who presents to the Emergency Room with complaints of diffuse abdominal tenderness starting around 0400 this morning. The patient states that four days ago she had her gall bladder removed, and she had her hiatal hernia repaired. She states that this morning she woke up with pain, and she took a dose of oxycodone afterwards. She additionally states that she took a dose last night around 0. Now, she has been taking acetaminophen because she finished her oxycodone. The patient states that she is nauseous, she dry heaves, and she feels bloated. She states that she had a normal bowel movement, and she has been passing gas. Pt denies headache, change in vision, fevers, chest pain, shortness of breath, diarrhea, pain with urination, and melena. Source of History: patient Onset: 0400 Position: abdomen Timing: constant Associated Symptoms: + nausea Note: Associated symptoms: dry heaving and bloating Review of Systems See HPI for pertinent positives & negatives. A total of 10 systems reviewed and were otherwise negative. Past Medical & Surgical Medical Problems: (1) Anxiety (2) Congestive heart failure, unspecified (3) Depression (4) Dyslipidemia (5) Fibromyalgia (6) GERD (gastroesophageal reflux disease) (7) Organic sleep disorder (8) Osteoarthritis (9) Restless legs Surgical Problems: (1) Gastric bypass status for obesity (2) H/O arthroscopic knee surgery (3) Hx of appendectomy (4) S/P bronchoscopy (5) S/p EGD (6) Status post cholecystectomy (7) Status post repair of paraesophageal diaphragmatic hernia Family History Unobtainable family history due to adoption Social History Smoking Status: Former Smoker Alcohol Use: none Drug Use: none, marijuana Marital Status: Housing Status: lives with significant other Occupation Status: unemployed Current/Historical Medications Scheduled Baclofen (Baclofen), 5 MG PO BID Buspirone Hcl (Buspirone Hcl), 10 MG PO BID Calcium Citrate-Vitamin D (Citracal + D3 Maximum), 1 TAB PO DAILY Cholecalciferol (D 1999), 2,000 UNITS PO DAILY Cyanocobalamin (Cyanocobalamin), 1,000 MCG IM [id number] Omeprazole (Prilosec), 20 MG PO DAILY Pediatric Multiple Vitamins W/ (Flintstones Plus Iron), 2 TABS PO QAM Pregabalin (Lyrica), 100 MG PO QD@1200 Pregabalin (Lyrica), 200 MG PO QAM Sucralfate (Sucralfate), 1 GM PO QID Venlafaxine Hcl (Effexor), 100 MG PO BID Scheduled PRN Acetaminophen (Tylenol Extra Strength), 500 MG PO Q4 PRN for Pain Diphenhydramine-Acetaminophen (Tylenol Pm), 1 TAB PO HS PRN for Insomnia Ondansetron Hcl (Zofran), 4 MG PO Q6 PRN for Nausea Oxycodone Oral Soln (Roxicodone Oral Soln), 5-10 ML PO Q4H PRN for Pain Allergies Coded Allergies: Codeine (Verified Allergy, Intermediate, DIARRHEA/RASH,TOLERATES PERCOCET , 11/26/16) TOLERATES PERCOCET NSAIDs (Verified Allergy, Unknown, UNKNOWN, 11/26/16) Clonazepam (Verified Adverse Reaction, Intermediate, "PASS OUT", 12/03/16) Hydrocodone (Verified Adverse Reaction, Intermediate, OVER SEDATION, ) Hydromorphone (Verified Adverse Reaction, Intermediate, weakness,sweating , 12/03/16) Sulfamethoxazole w/Trimethoprim (Verified Adverse Reaction, Intermediate, DELIRIUM, 11/26/16) pt devoped invontary muscle spasm ; Aspirin (Verified Adverse Reaction, Mild, STOMACH IRRITATION, 12/03/16) Cephalexin (Verified Adverse Reaction, Mild, GI SYMPTOMS, 12/03/16) UPSET STOMACH Physical Exam Vital Signs Date Time Temp Pulse Resp B/P (MAP) Pulse Ox O2 Delivery O2 Flow Rate FiO2 01/24/17 23:02 81 21 167/98 96 Room Air 01/24/17 22:34 92 21 146/94 96 Room Air 01/24/17 22:16 92 01/24/17 21:19 76 17 175/113 99 Room Air 01/24/17 20:37 77 23 174/104 98 Room Air 01/24/17 18:47 85 23 161/100 97 Room Air 01/24/17 18:20 77 16 129/88 98 Room Air 01/24/17 18:03 74 01/24/17 17:19 36.7 75 16 146/91 97 Room Air Physical Exam GENERAL: alert, well appearing, well nourished, no distress, non-toxic EYE EXAM: normal conjunctiva, PERRL and EOM's grossly intact OROPHARYNX: no exudate, no erythema, lips, buccal mucosa, and tongue normal and mucous membranes are moist NECK: supple, no nuchal rigidity, no adenopathy, non-tender LUNGS: Lung sounds are diminished with no wheezing, rhonchi, or rales. HEART: no murmurs, S1 normal and S2 normal ABDOMEN: Multiple small incisions consistent with recent laparoscopic surgery. No drainage. No surrounding erythema. Resolving ecchymosis across the upper abdomen. Generalized tenderness which is worse in the upper abdomen. No rebound , guarding, or surgical abdomen. BACK: Back is symmetrical on inspection and there is no deformity, no midline tenderness, no CVA tenderness. SKIN: no rashes and no bruising UPPER EXTREMITIES: upper extremities are grossly normal. LOWER EXTREMITIES: No pitting edema. NEURO EXAM: Normal sensorium, cranial nerves II-XII grossly intact, normal speech, no gross weakness of arms, no gross weakness of legs. Gross sensation intact. Medical Decision & Procedures ER Provider Diagnostic Interpretation: Radiology results have been interpreted by the radiologist and reviewed by me. ABD/PELVIS IV AND ORAL CONT CT DOSE: 580.32 mGy.cm HISTORY: Pain abd pain, post op TECHNIQUE: Multiaxial CT images of the abdomen and pelvis were performed following the use of intravenous and oral contrast. A dose lowering technique was utilized adhering to the principles of ALARA. COMPARISON STUDY: 11/11/2015 FINDINGS: Lung bases are clear. Subcutaneous emphysema in the lateral chest wall regions bilaterally. Trace amount of perihepatic ascites possibly postoperative. There has been a cholecystectomy. Moderate prominence of biliary ductal system compared to the prior study. The common bile duct currently measures 11 mm. Mild intrahepatic biliary ductal distention. Findings of prior gastric bypass procedure. Small amount of perisplenic ascites. Trace ascites within the right flank possibly postoperative. Moderate ascites within the pelvis. Mild fecal impaction. No evidence of bowel obstructive change. IMPRESSION: 1. Scattered subcutaneous air/emphysematous change within the chest wall regions laterally. 2. Small amount of abdominal and to a somewhat greater extent pelvic ascites. 3. Mild development of moderate biliary ductal distention compared to the prior study status post cholecystectomy. 5. Operative changes consistent with a known gastric bypass type procedure. 6. Nonobstructive bowel pattern. 7. Mild fecal impaction. The above report was generated using voice recognition software. It may contain grammatical, syntax or spelling errors. Electronically signed by: Tello Warren M.D. 01/24/2017 10:05 PM Dictated Date/Time: 01/24/2017 9:59 PM Laboratory Results 01/24/17 18:07 Red Blood Count 4.01, Mean Corpuscular Volume 95.0, Mean Corpuscular Hemoglobin 31.4, Mean Corpuscular Hemoglobin Concent 33.1, Mean Platelet Volume 10.8, Neutrophils (%) (Auto) 78.6, Lymphocytes (%) (Auto) 11.0, Monocytes (%) (Auto) 9.4, Eosinophils (%) (Auto) 0.6, Basophils (%) (Auto) 0.2, Neutrophils # (Auto) 6.49, Lymphocytes # (Auto) 0.91, Monocytes # (Auto) 0.78, Eosinophils # (Auto) 0.05, Basophils # (Auto) 0.02 Test 01/24/17 18:07 01/24/17 20:35 White Blood Count 8.27 K/uL (4.8-10.8) Red Blood Count 4.01 M/uL (4.2-5.4) Hemoglobin 12.6 g/dL (12.0-16.0) Hematocrit 38.1 % (37-47) Mean Corpuscular Volume 95.0 fL (80-100) Mean Corpuscular Hemoglobin 31.4 pg (25-34) Mean Corpuscular Hemoglobin Concent 33.1 g/dl (32-36) Platelet Count 188 K/uL (130-400) Mean Platelet Volume 10.8 fL (7.4-10.4) Neutrophils (%) (Auto) 78.6 % Lymphocytes (%) (Auto) 11.0 % Monocytes (%) (Auto) 9.4 % Eosinophils (%) (Auto) 0.6 % Basophils (%) (Auto) 0.2 % Neutrophils # (Auto) 6.49 K/uL (1.4-6.5) Lymphocytes # (Auto) 0.91 K/uL (1.2-3.4) Monocytes # (Auto) 0.78 K/uL (0.11-0.59) Eosinophils # (Auto) 0.05 K/uL (0-0.5) Basophils # (Auto) 0.02 K/uL (0-0.2) RDW Standard Deviation 52.1 fL (36.4-46.3) RDW Coefficient of Variation 15.0 % (11.5-14.5) Immature Granulocyte % (Auto) 0.2 % Immature Granulocyte # (Auto) 0.02 K/uL (0.00-0.02) Lactic Acid Level 0.8 mmol/L (0.4-2.0) Total Bilirubin 0.5 mg/dl (0.2-1) Aspartate Amino Transf (AST/SGOT) 25 U/L (15-37) Alanine Aminotransferase (ALT/SGPT) 68 U/L (12-78) Alkaline Phosphatase 194 U/L (45-117) Total Protein 6.7 gm/dl (6.4-8.2) Albumin 2.9 gm/dl (3.4-5.0) Globulin 3.8 gm/dl (2.5-4.0) Albumin/Globulin Ratio 0.8 (0.9-2) Lipase 47 U/L (73-393) Urine Color DK YELLOW Urine Appearance CLEAR (CLEAR) Urine pH 6.0 (4.5-7.5) Urine Specific [place] 1.024 (1.000-1.030) Urine Protein TRACE (NEG) Urine Glucose (UA) NEG (NEG) Urine Ketones NEG (NEG) Urine Occult Blood NEG (NEG) Urine Nitrite NEG (NEG) Urine Bilirubin NEG (NEG) Urine Urobilinogen NEG (NEG) Urine Leukocyte Esterase NEG (NEG) Urine WBC (Auto) 1-5 /hpf (0-5) Urine RBC (Auto) 0-4 /hpf (0-4) Urine Hyaline Casts (Auto) 1-5 /lpf (0-5) Urine Epithelial Cells (Auto) 10-20 /lpf (0-5) Urine Bacteria (Auto) NEG (NEG) Laboratory results per my review. Medications Administered Medications (Trade) Dose Ordered Sig/Gabriel Route Start Time Stop Time Status Last Admin Dose Admin Sodium Chloride 1,000 ml @ 999 mls/hr Q1H1M STAT IV 01/24/17 17:52 01/24/17 18:52 DC 01/24/17 18:07 999 MLS/HR Morphine Sulfate (MoRPHine SULFATE INJ) 4 mg NOW STAT IV 01/24/17 17:52 01/24/17 17:54 DC 01/24/17 18:08 4 MG Morphine Sulfate (MoRPHine SULFATE INJ) 4 mg NOW STAT IV 01/24/17 19:36 01/24/17 19:37 DC 01/24/17 19:43 4 MG Morphine Sulfate (MoRPHine SULFATE INJ) 4 mg NOW STAT IV 01/24/17 22:18 01/24/17 22:19 DC 01/24/17 22:29 4 MG Sodium Chloride 1,000 ml @ 125 mls/hr Q8H STAT IV 01/24/17 22:18 01/25/17 00:23 DC 01/24/17 22:28 125 MLS/HR ECG Indication: abdominal pain Rate (beats per minute): 75 Rhythm: normal sinus Findings: no acute ischemic change, no ectopy, other (Normal interval, normal axis) ED Course 172: The patient was evaluated in room C1. A complete history and physical exam was performed. 1751: Morphine Sulfate 4mg IV, Sodium Chloride 1000 ml @ 999 mls/hr IV 1810: I reviewed the recent surgical note from the patient's procedure. 1935: Morphine Sulfate 4mg IV 8: I updated the patient on the results, and she is still complaining of the pain in her stomach, no chest pain or trouble breathing. I ordered Sodium Chloride 1000 ml @ 125 mls/hr IV and Morphine Sulfate 4mg IV. When discussing with patient, she states she is not recently had any cardiac evaluation, does not know her family history given that she is adopted. 2318: I reviewed the patient's case with James Faustin. He will evaluate the patient for further management. Medical Decision Differential diagnosis: Etiologies such as post-op complications, appendicitis, diverticulitis, PUD, biliary pathology, UTI, pancreatitis, obstruction, mesenteric ischemia, aortic pathology, infections, inflammatory bowel disease, renal colic, as well as others were entertained. No acute postop complication noted, normal postop changes seen. Labs otherwise reassuring, however elevated troponin noted. Patient with no EKG changes, however does have risk factors for ACS. Unknown family history. Patient evaluated by hospitalist for additional treatment and monitoring. Patient with no chest pain or trouble breathing prior to today and none during time in the emergency room. Patient hemodynamically stable. Doubt other vascular etiology. No evidence of acute CHF. Doubt PE. Medication Reconcilliation Current Medication List: was personally reviewed by me Blood Pressure Screening Patient's blood pressure: Elevated blood pressure Monitored by the hospitalist Consults Time Called: 2218 Consulting Physician: James Faustin Returned Call: I reviewed the patient's case with James Faustin. He will evaluate the patient for further management. Impression Primary Impression: Abdominal pain Additional Impressions: Nausea Elevated troponin Scribe Attestation The scribe's documentation has been prepared under my direction and personally reviewed by me in its entirety. I confirm that the note above accurately reflects all work, treatment, procedures, and medical decision making performed by me. Departure Information Dispostion Being Evaluated By Hospitalist Referrals Kvng Ceron D.O. (PCP) Patient Instructions My [facility] Problem Qualifiers Primary Impression: Abdominal pain Abdominal location: upper abdomen, unspecified Qualified Codes: R10.10 - Upper abdominal pain, unspecified
[2017-01-24 18:38] LABS: CALCIUM 8.7 mg/dl (8.5-10.1); CREATININE 0.63 mg/dl (0.60-1.20); POTASSIUM 3.4 mmol/L (3.5-5.1)
[2017-01-24 18:46] LABS: ALB/GLOB RATIO 0.8 (0.9-2)
[2017-01-24] MEDS ORDERED: VNTHFA/IN INH (19:13)
[2017-01-24] MEDS ORDERED: HYDR1CAP85 PO (19:13)
[2017-01-24] MEDS ORDERED: LRS10 PO (19:13)
[2017-01-24] MEDS ORDERED: SUCR1TAB PO (19:13)
[2017-01-24] MEDS ORDERED: VENL100T2 PO (19:13)
[2017-01-24] MEDS ORDERED: LYR100 PO (19:13)
[2017-01-24] MEDS ORDERED: PEDICHW44 PO (19:49)
[2017-01-24 21:00] LABS: URINE APPEARANCE CLEAR (CLEAR); URINE BILIRUBIN NEG (NEG); URINE COLOR DK YELLOW; URINE NITRITE NEG (NEG); URINE SPECIFIC GRAVITY 1.024 (1.000-1.030); UROBILINOGEN NEG (NEG); ZZUR CULT IF INDIC CLEAN CATCH NO
[2017-01-24 21:01] LABS: MANUAL MICROSCOPIC REQUIRED? NO; REVIEW REQ? NO
[2017-01-24] MEDS ORDERED: OPTIRAY 320 IV PRN (21:45)
[2017-01-24] MEDS ORDERED: OMEP20CA9 PO (22:03)
--- NOTE | 2017-01-24 22:06 | DIAGNOSTIC IMAGING REPORT ---
ABD/PELVIS IV AND ORAL CONT CT DOSE: 580.32 mGy.cm HISTORY: Pain abd pain, post op TECHNIQUE: Multiaxial CT images of the abdomen and pelvis were performed following the use of intravenous and oral contrast. A dose lowering technique was utilized adhering to the principles of ALARA. COMPARISON STUDY: 11/11/2015 FINDINGS: Lung bases are clear. Subcutaneous emphysema in the lateral chest wall regions bilaterally. Trace amount of perihepatic ascites possibly postoperative. There has been a cholecystectomy. Moderate prominence of biliary ductal system compared to the prior study. The common bile duct currently measures 11 mm. Mild intrahepatic biliary ductal distention. Findings of prior gastric bypass procedure. Small amount of perisplenic ascites. Trace ascites within the right flank possibly postoperative. Moderate ascites within the pelvis. Mild fecal impaction. No evidence of bowel obstructive change. IMPRESSION: 1. Scattered subcutaneous air/emphysematous change within the chest wall regions laterally. 2. Small amount of abdominal and to a somewhat greater extent pelvic ascites. 3. Mild development of moderate biliary ductal distention compared to the prior study status post cholecystectomy. 5. Operative changes consistent with a known gastric bypass type procedure. 6. Nonobstructive bowel pattern. 7. Mild fecal impaction. The above report was generated using voice recognition software. It may contain grammatical, syntax or spelling errors. Electronically signed by: Tello Warren M.D. 01/24/2017 10:05 PM Dictated Date/Time: 01/24/2017 9:59 PM
--- NOTE | 2017-01-24 23:30 | History and Physical ---
History & Physical Date & Time of Service: Jan 24, 2017 at 23:30 . Chief Complaint: abdominal pain . Primary Care Physician: Kvng Ceron D.O. . History of Present Illness Source: patient, family, clinic records, hospital records 56 YO female followed by Dr. Ceron. History of gastric bypass, hiatal hernia, cholelithiasis, and other problems noted below. Laparoscopic cholecystectomy and paraesophageal hernia repair performed at [facility] by Dr. Shay on 01/20/17. Procedures were uncomplicated. Discharged to home on 01/21/17. Experiencing upper abdominal pain, nausea, and retching since her discharge. No emesis. Moved bowels this morning- no diarrhea, melena, hematochezia. Intermittent sharp left parasternal chest pain, nonradiating, no associated SOB. Occasional mild cough. Experiencing some chills and sweats, but no apparent fever. Taking oxycodone for pain at home without significant relief. Came to ED for evaluation. Received IV morphine with some relief of her abdominal pain. . Past Medical/Surgical History Chronic and Resolved Medical Problems: (1) Anxiety Status: Chronic (2) Congestive heart failure, unspecified Permanent Comment: echo 03/25/13-grade 1 diastolic dysfunction with mild concentric LVH Status: Chronic (3) Depression Status: Chronic (4) Dyslipidemia Status: Chronic (5) Fibromyalgia Status: Chronic (6) GERD (gastroesophageal reflux disease) Status: Chronic (7) Organic sleep disorder Status: Chronic (8) Osteoarthritis Status: Chronic (9) Restless legs Status: Chronic Surgical Problems: (1) Gastric bypass status for obesity Status: Chronic (2) H/O arthroscopic knee surgery Permanent Comment: R knee; 1998 Status: Chronic (3) Hx of appendectomy Status: Chronic (4) S/P bronchoscopy Status: Chronic (5) S/p EGD Permanent Comment: 11/24/2014- small ulcers at anastamosis, brandy removed/ [facility] Status: Chronic (6) Status post cholecystectomy Permanent Comment: laparoscopic cholecystectomy Dr. Shay [facility] 01/20/17 Status: Chronic (7) Status post repair of paraesophageal diaphragmatic hernia Permanent Comment: Dr. Shay [facility] 01/20/17 Status: Chronic . Family History Unobtainable family history due to adoption Social History Smoking Status: Former Smoker Alcohol Use: none Drug Use: none, marijuana Marital Status: Housing status: lives with significant other Occupational Status: unemployed Immunizations History of Influenza Vaccine: N/A History of Tetanus Vaccine?: No Tetanus Immunization Date: Aug 09, 2004 History of Pneumococcal: Yes History of Hepatitis B Vaccine: No Multi-Drug Resistant Organisms History of MDRO: No Allergies Coded Allergies: Codeine (Verified Allergy, Intermediate, DIARRHEA/RASH,TOLERATES PERCOCET , 11/26/16) TOLERATES PERCOCET NSAIDs (Verified Allergy, Unknown, UNKNOWN, 11/26/16) Clonazepam (Verified Adverse Reaction, Intermediate, "PASS OUT", 12/03/16) Hydrocodone (Verified Adverse Reaction, Intermediate, OVER SEDATION, ) Hydromorphone (Verified Adverse Reaction, Intermediate, weakness,sweating , 12/03/16) Sulfamethoxazole w/Trimethoprim (Verified Adverse Reaction, Intermediate, DELIRIUM, 11/26/16) pt devoped invontary muscle spasm ; Aspirin (Verified Adverse Reaction, Mild, STOMACH IRRITATION, 12/03/16) Cephalexin (Verified Adverse Reaction, Mild, GI SYMPTOMS, 12/03/16) UPSET STOMACH Home Medications Scheduled Baclofen (Baclofen), 5 MG PO BID Buspirone Hcl (Buspirone Hcl), 10 MG PO BID Calcium Citrate-Vitamin D (Citracal + D3 Maximum), 1 TAB PO DAILY Cholecalciferol (D 2000), 2,000 UNITS PO DAILY Cyanocobalamin (Cyanocobalamin), 1,000 MCG IM [id number] Omeprazole (Prilosec), 20 MG PO DAILY Pediatric Multiple Vitamins W/ (Flintstones Plus Iron), 2 TABS PO QAM Pregabalin (Lyrica), 100 MG PO QD@1200 Pregabalin (Lyrica), 200 MG PO QAM Sucralfate (Sucralfate), 1 GM PO QID Venlafaxine Hcl (Effexor), 100 MG PO BID Scheduled PRN Acetaminophen (Tylenol Extra Strength), 500 MG PO Q4 PRN for Pain Diphenhydramine-Acetaminophen (Tylenol Pm), 1 TAB PO HS PRN for Insomnia Ondansetron Hcl (Zofran), 4 MG PO Q6 PRN for Nausea Oxycodone Oral Soln (Roxicodone Oral Soln), 5-10 ML PO Q4H PRN for Pain Review of Systems Constitutional: + chills, + sweats, No fever Eyes: No worsening of vision, No diplopia ENT: No nasal symptoms, No sore throat Respiratory: + cough (mild), No shortness of breath Cardiovascular: + chest pain (as noted in HPI), + edema (chronic lymphedema) Abdomen: + problem reported (as noted in HPI) Musculoskeletal: + muscle pain (fibromyalgia), No joint pain Genitourinary - Female: No dysuria, No hematuria Neurologic: + problem reported (no headaches) Psychiatric: + depression symptoms, + anxiety Endocrine: No excessive thirst, No excessive urination Hematologic / Lymphatic: + abnormal bleeding/bruising Integumentary: No rash, No new/changing skin lesions Physical Exam Vital Signs Date Time Temp Pulse Resp B/P (MAP) Pulse Ox O2 Delivery O2 Flow Rate FiO2 01/24/17 23:02 81 21 167/98 96 Room Air 01/24/17 22:34 92 21 146/94 96 Room Air 01/24/17 22:16 92 01/24/17 21:19 76 17 175/113 99 Room Air 01/24/17 20:37 77 23 174/104 98 Room Air 01/24/17 18:47 85 23 161/100 97 Room Air 01/24/17 18:20 77 16 129/88 98 Room Air 01/24/17 18:03 74 01/24/17 17:19 36.7 75 16 146/91 97 Room Air General Appearance: + moderate distress Head: normocephalic, atraumatic Eyes: normal inspection, PERRL, EOMI, sclerae normal (conjunctivae pink) ENT: hearing grossly normal, pharynx normal Neck: supple, no adenopathy, thyroid normal, no JVD, trachea midline Respiratory/Chest: lungs clear, no respiratory distress, no accessory muscle use Cardiovascular: regular rate, rhythm, no gallop, no JVD, + systolic murmur (II/ sys murmur at base), + pertinent finding (lymphedema lower extremities) Abdomen/GI: + pertinent finding (quiet bowel sounds; slightly distended, soft, upper abdominal tenderness; upper abdominal ecchymoses; upper abdominal incisions without erytema or drainage; no palpable hepatomegaly or splenomegaly) Extremities/Musculoskelatal: no calf tenderness, normal capillary refill, + swelling (lymphedema) Neurologic/Psych: respiratory equipment assistant II-XII nml as tested (PERRL, EOMI; no facial palsy; no dysarthria), no motor/sensory deficits (motor strength upper and lower extremities grossly intact), alert, normal reflexes (patellar DTR's 1/2 bilat; plantar reflexes downgoing), oriented x 3 Skin: normal color, warm/dry, no rash Lymphatic: no adenopathy (cervical) Diagnostics Laboratory Results Results Past 24 Hours Test 01/24/17 18:07 01/24/17 20:35 Range/Units White Blood Count 8.27 4.8-10.8 K/uL Red Blood Count 4.01 4.2-5.4 M/uL Hemoglobin 12.6 12.0-16.0 g/dL Hematocrit 38.1 37-47 % Mean Corpuscular Volume 95.0 80-100 fL Mean Corpuscular Hemoglobin 31.4 25-34 pg Mean Corpuscular Hemoglobin Concent 33.1 32-36 g/dl Platelet Count 188 130-400 K/uL Mean Platelet Volume 10.8 7.4-10.4 fL Neutrophils (%) (Auto) 78.6 % Lymphocytes (%) (Auto) 11.0 % Monocytes (%) (Auto) 9.4 % Eosinophils (%) (Auto) 0.6 % Basophils (%) (Auto) 0.2 % Neutrophils # (Auto) 6.49 1.4-6.5 K/uL Lymphocytes # (Auto) 0.91 1.2-3.4 K/uL Monocytes # (Auto) 0.78 0.11-0.59 K/uL Eosinophils # (Auto) 0.05 0-0.5 K/uL Basophils # (Auto) 0.02 0-0.2 K/uL RDW Standard Deviation 52.1 36.4-46.3 fL RDW Coefficient of Variation 15.0 11.5-14.5 % Immature Granulocyte % (Auto) 0.2 % Immature Granulocyte # (Auto) 0.02 0.00-0.02 K/uL Sodium Level 141 136-145 mmol/L Potassium Level 3.4 3.5-5.1 mmol/L Chloride Level 105 98-107 mmol/L Carbon Dioxide Level 30 21-32 mmol/L Anion Gap 6.0 3-11 mmol/L Blood Urea Nitrogen 8 7-18 mg/dl Creatinine 0.63 0.60-1.20 mg/dl Est Creatinine Clear Calc Drug Dose 102.5 ml/min Estimated GFR () 116.2 Estimated GFR (Non- 100.3 BUN/Creatinine Ratio 13.0 10-20 Random Glucose 109 70-99 mg/dl Lactic Acid Level 0.8 0.4-2.0 mmol/L Calcium Level 8.7 8.5-10.1 mg/dl Total Bilirubin 0.5 0.2-1 mg/dl Aspartate Amino Transf (AST/SGOT) 25 15-37 U/L Alanine Aminotransferase (ALT/SGPT) 68 12-78 U/L Alkaline Phosphatase 194 45-117 U/L Troponin I 0.051 0-0.045 ng/ml Total Protein 6.7 6.4-8.2 gm/dl Albumin 2.9 3.4-5.0 gm/dl Globulin 3.8 2.5-4.0 gm/dl Albumin/Globulin Ratio 0.8 0.9-2 Lipase 47 73-393 U/L Urine Color DK YELLOW Urine Appearance CLEAR CLEAR Urine pH 6.0 4.5-7.5 Urine Specific Ira 1.024 1.000-1.030 Urine Protein TRACE NEG Urine Glucose (UA) NEG NEG Urine Ketones NEG NEG Urine Occult Blood NEG NEG Urine Nitrite NEG NEG Urine Bilirubin NEG NEG Urine Urobilinogen NEG NEG Urine Leukocyte Esterase NEG NEG Urine WBC (Auto) 1-5 0-5 /hpf Urine RBC (Auto) 0-4 0-4 /hpf Urine Hyaline Casts (Auto) 1-5 0-5 /lpf Urine Epithelial Cells (Auto) 10-20 0-5 /lpf Urine Bacteria (Auto) NEG NEG Diagnostic Radiology ABD/PELVIS IV AND ORAL CONT FINDINGS: Lung bases are clear. Subcutaneous emphysema in the lateral chest wall regions bilaterally. Trace amount of perihepatic ascites possibly postoperative. There has been a cholecystectomy. Moderate prominence of biliary ductal system compared to the prior study. The common bile duct currently measures 11 mm. Mild intrahepatic biliary ductal distention. Findings of prior gastric bypass procedure. Small amount of perisplenic ascites. Trace ascites within the right flank possibly postoperative. Moderate ascites within the pelvis. Mild fecal impaction. No evidence of bowel obstructive change. IMPRESSION: 1. Scattered subcutaneous air/emphysematous change within the chest wall regions laterally. 2. Small amount of abdominal and to a somewhat greater extent pelvic ascites. 3. Mild development of moderate biliary ductal distention compared to the prior study status post cholecystectomy. 5. Operative changes consistent with a known gastric bypass type procedure. 6. Nonobstructive bowel pattern. 7. Mild fecal impaction. The above report was generated using voice recognition software. It may contain grammatical, syntax or spelling errors. Electronically signed by: Tello Warren M.D. 01/24/2017 10:05 PM Dictated Date/Time: 01/24/2017 9:59 PM . EKG EKG performed at 17:59 reviewed and demonstrated NSR at 75 / minute, no acute ST or T-wave changes. . Impression Assessment and Plan ELEVATED TROPONIN Serum troponin slightly elevated. No acute EKG changes. Patient primarily experiencing epigastric pain few days postoperatively. Upon further questioning, she is having some intermittent sharp left parasternal pain. Doubt acute coronary syndrome. Check serial cardiac markers and EKG's. Doubt pulmonary embolism, but reconsider if symptoms, oxygenation, vitals signs are concerning. ABDOMINAL PAIN Upper abdominal pain 4 days after laparoscopic cholecystectomy and paraesophageal hernia repair. CT demonstrates expected postsurgical changes. Continue oxycodone. IV morphine for severe pain. Full liquid diet x 3 more days per postop instructions. GERD Continue PPI. FIBROMYALGIA Continue pregabalin. DEPRESSION Continue usual meds. VTE PROPHYLAXIS Moderate risk- chronic lymphedema, postop status. Has significant ecchymoses of upper abdomen, so will use SCD's rather than anticoagulants. Ambulate as able. RESUSCITATION STATUS Full code. DISPOSITION Observation status on Telemetry Unit. Expected discharge to home. Internal Medicine follow-up with Dr. Ceron. Surgical follow-up with Dr. Shay. . VTE Prophylaxis Risk Level: Moderate Given or contraindicated: SCD's
[2017-01-24] MEDS ORDERED: IV FLUIDS COMPLETED PRN (23:45)
[2017-01-24] MEDS ORDERED: ONDANSETRON INJ 2 MG/ML 2 ML VIAL IV PRN (23:45)
[2017-01-24] MEDS ORDERED: ACETAMINOPHEN 325 MG TAB PO PRN (23:45)
[2017-01-25] VITALS (11 sets, daily range): BP systolic 133–173; BP diastolic 83–96; PULSE 72–101; TEMP 36.3–36.9; O2SAT 96–100; Ht 160 cm; Wt 88.2 kg
[2017-01-25] MEDS ORDERED: ACET-1138 PO (00:21)
[2017-01-25] MEDS ORDERED: BUSP-8 PO (00:21)
[2017-01-25] MEDS ORDERED: OXYC10SO PO (00:21)
[2017-01-25] MEDS ORDERED: CHOL1TAB76 PO (00:21)
[2017-01-25] MEDS ORDERED: OXYCODONE HCL PO PRN (00:30)
[2017-01-25] MEDS ORDERED: ACETAMINOPHEN 500 MG TAB PO PRN (00:30)
[2017-01-25] MEDS: MoRPHine SULFATE 4 MG/ML 1 ML CARP\\VIAL IV PRN ×9 (01:01→22:08)
[2017-01-25] MEDS: D5W AND LACTATED RINGERS 1,000 ML IV SCH ×3 (01:43→22:09)
[2017-01-25 02:17] LABS: CKMB/CK RATIO 4.2 (0-3.0)
[2017-01-25] MEDS: OXYCODONE HCL SOLN 5 MG/5 ML UDC PO PRN ×4 (07:19→23:19)
[2017-01-25] MEDS: SUCRALFATE 1 GM TAB PO SCH ×4 (07:26→20:30)
[2017-01-25] MEDS: PANTOprazole SOD 40 MG TAB PO SCH ×2 (07:27→20:29)
[2017-01-25] MEDS: VENLAFAXINE HCL 50 MG TAB PO SCH ×2 (07:28→20:28)
[2017-01-25] MEDS: BACLOFEN 10 MG TAB PO SCH ×2 (07:29→20:29)
[2017-01-25] MEDS: PREGABALIN 100 MG CAP PO SCH ×2 (08:23→12:33)
[2017-01-25 08:25] LABS: BUN/CREATININE RATIO 12.2 (10-20); CREATININE 0.59 mg/dl (0.60-1.20); POTASSIUM 3.6 mmol/L (3.5-5.1)
[2017-01-25 08:35] LABS: CHOLESTEROL/HDL RATIO 1.6; CKMB/CK RATIO 4.8 (0-3.0)
--- NOTE | 2017-01-25 12:22 | CARDIOLOGY CONSULTATION ---
DATE OF CONSULTATION: 01/25/2017 DATE OF CONSULTATION: 01/25/2017 REASON FOR CONSULTATION: Elevated troponin. CHIEF COMPLAINT ON ADMISSION: Epigastric and abdominal pain. HISTORY OF PRESENT ILLNESS: Ms. Carty is a 56-year-old female who presented to the Emergency Department with diffuse abdominal tenderness. The patient had recent surgery at [facility] on Friday where she underwent laparoscopic cholecystectomy and hiatal hernia repair. Since then she has noted abdominal discomfort, nausea, and poor appetite. The patient states that prior to admission she had taken her liquid oxycodone and has also been taking Tylenol every 4 to 4-1/[address] of the abdomen was performed which did not demonstrate acute findings. Her discomfort has persisted thus far. Consult requested cardiology due to a mildly elevated troponin. The patient denies any chest discomfort at that time, however, per review of the chart there was a isolated episode of left-sided sharp stabbing discomfort overnight. Her EKGs are normal. There are no significant ST changes. There are no dysrhythmias on telemetry. Currently, the patient is uncomfortable. She complains of significant abdominal tenderness. She is most comfortable in the upright position. Pain is worse when lying supine. Adamantly denies any chest discomfort at this time. No orthopnea or PND. She carries a history of diastolic heart failure, however, has not followed with cardiology in more than 3 years. Most recent echocardiogram performed in March demonstrated preserved LV systolic function with mild aortic sclerosis, no aortic stenosis, normal wall motion. REVIEW OF SYSTEMS: The pertinent positive noted above, a comprehensive 10-system review is otherwise negative. PAST MEDICAL HISTORY: 1. Diastolic heart failure. 2. Hypertensive heart disease. 3. Chronic obstructive pulmonary disease. 4. Morbid obesity status post gastric bypass surgery. 5. Nocturnal hypoxemia. 6. Dyslipidemia. 7. Restless leg syndrome. 8. Reflux esophagitis. 9. Seizure. 10. Fibromyalgia. 11. Anxiety disorder. PAST SURGICAL HISTORY: 1. Laparoscopic cholecyst[place] and hiatal hernia [place] 01/21/[address] [facility] 2. Arthroscopic knee surgery. 3. Appendectomy. 4. Bronchoscopy. 5. EGD. FAMILY HISTORY: The patient is adopted, family history unknown. SOCIAL HISTORY: Former tobacco abuse, recent drug screen positive for marijuana, and unemployed. CURRENT HOME MEDICATIONS: 1. Albuterol 2 puffs 4 times daily. 2. Baclofen 5 mg twice daily. 3. Calcium with vitamin D 1 tablet daily. 4. Tylenol PM at bedtime. 5. Prilosec 20 mg twice daily. 6. Pediatric multivitamin 2 tabs daily. 7. Lyrica 200 mg in the morning, 100 mg at noon. 8. Carafate 1 gram q.i.d. 9. Effexor 100 mg b.i.d. 10. Hydroxyzine 25 mg q. 8. 11. Zofran 4 mg as needed. 12. Oxycodone liquid. ALLERGIES: 1. CODEINE. 2. NSAIDS. 3. CLONAZEPAM. 4. HYDROCODONE. 5. HYDROMORPHONE. 6. ASPIRIN. 7. CEPHALEXIN. ECG ON ADMISSION: Normal sinus rhythm, within normal limits. Repeat ECG within normal limits. Telemetry demonstrates sinus rhythm without dysrhythmia. LABORATORY DATA: Initial troponin 0.051. Repeat troponin 0.190 with follow-up troponin 0.207, CK and CK-MB are not elevated. Sodium 140, potassium 3.6, chloride 104, CO2 is 28, BUN is 7, creatinine is 0.959. White blood cell count 8.27, hemoglobin is 12.6, platelet count is 188. CT of the abdomen and pelvis demonstrates: 1. Small amount of abdominal and somewhat greater extent pelvic ascites. 2. Bilateral moderate biliary ductal distention post-cholecystectomy. 3. Evidence of prior gastric bypass. 4. Nonobstructive bowel gas pattern. 5. Mild fecal impaction. PHYSICAL EXAMINATION: VITAL SIGNS: Temperature is 36.5 degrees centigrade, pulse 77 beats per minute and regular, respiratory rate is 18 breaths per minute, blood pressure 143/89. SAO2 is 98% on room air. GENERAL: Mild to moderate discomfort and distress due to abdominal pain, she is awake and alert. She appears chronically ill. HEAD, EYES, EARS, NOSE, AND THROAT: Her mucous membranes are moist. No scleral icterus. Conjunctivae pink. NECK: Supple. There is no JVD, no HJR, no carotid bruit. HEART: Regular with a normal S1 and S2. There is a 1/6 systolic ejection murmur heard at the cardiac base. LUNGS: Demonstrate clear breath sounds without rales, rhonchi, or wheeze. ABDOMEN: Diffusely tender. No rebound or guarding. There is mild distention. Bowel sounds are not appreciated on exam. EXTREMITIES: Warm and dry. There is no clubbing, cyanosis, or edema. NEUROLOGIC EXAMINATION: Demonstrates no focal deficit. FINAL IMPRESSION: 1. Mildly elevated troponin of unclear significance. The patient is not describing anginal symptoms at this time. Baseline ECG and telemetry monitoring within normal limits. 2. Acute postoperative abdominal discomfort with associated nausea. CT evidence of fecal impaction and postoperative changes -- followed by internal medicine. 3. Chart history of diastolic heart failure -- patient appears mildly volume depleted, no evidence of decompensation. 4. History of hypertensive heart disease -- blood pressure mildly elevated. 5. Morbid obesity status post gastric bypass in 2014. PLAN AND RECOMMENDATIONS: Cardiac enzymes will be trended in 6 hours. A resting 2D transthoracic echo will be performed to exclude the presence of regional wall motion abnormalities and/or right ventricular dysfunction. Due to the patient's recent surgery, confinement, and immobility - recommend CT angiogram of the chest to exclude the presence of pulmonary embolus. Also, discussed the case with internal medicine. Consider surgical consultation for postoperative abdominal discomfort. Acute coronary syndrome less likely given the lack of ischemic ECG changes or chest discomfort currently. Further recommendations pending review testing. Thank you for allowing me to take part in the care of your patient. MARCO
--- NOTE | 2017-01-25 13:41 | ECHOCARDIOGRAM REPORT ---
*NOTICE TO RECEIVING CONSTITUTION PARTY AGENCY This information is strictly Confidential and protected under [place] law. [place] law prohibits you from making any further disclosure of this information unless further disclosure is expressly permitted by the written consent of the person to whom it pertains or is authorized by law. A general authorization for the release of medical or other information is not sufficient for this purpose. Hospital accepts no responsibility if the information is made available to any other person, INCLUDING THE PATIENT. Interpretation Summary * Name: SAMY MADRID Study Date: 01/25/2017 11:35 AM BP: 143/89 mmHg * Patient Location: [facility]\S\N282\S\2 HR: 77 * : 1960 (M/d/yyyy) Gender: Female Height: 63 in * Age: 56 yrs Ethnicity: [place] Weight: 186 lb * Ordering Physician: Scott Leyva DO * Performed By: My [facility] * * Reason For Study: CHEST PAIN * BSA: 1.9 m2 * The study was technically adequate. * Compared to prior study, there is no significant change. * -- Conclusions -- * Ejection Fraction = 65-70%. * No regional wall motion abnormalities noted. * Grade I diastolic dysfunction, (abnormal relaxation pattern). * No significant valular disease is present Procedure Details * A complete two-dimensional transthoracic echocardiogram was performed (2D, M-mode, Doppler and color flow Doppler). * There were technical limitations due to patient'sinability to cooperate * A contrast injection of Definity was performed to improve assessment of LV function. * Contrast was injected into an intravenous site in the right arm. * One vial of Definity ultrasound contrast was diluted in normal saline to a total volume of 10 ml. A total of '3' ml of solution was administered during imaging. * Lot # [id number] of Definity utilized for procedure. * Expiration date 02/19. Left Ventricle * The left ventricle is normal in size. * There is no thrombus. * There is normal left ventricular wall thickness. * Ejection Fraction = 65-70%. * Left ventricular systolic function is normal. * No regional wall motion abnormalities noted. Right Ventricle * The right ventricle is normal size. * The right ventricular systolic function is normal as assessed by tricuspid annular plane systolic excursion (TAPSE) (normal >1.5 cm). Atria * The left atrium is mildly dilated. * Right atrial size is normal. * There is no evidence of atrial septal defect, but resolution does not allow assessment for a patent foramen ovale. Mitral Valve * The mitral valve is normal. * There is no mitral valve stenosis. * Significant mitral regurgitation is absent. Tricuspid Valve * The tricuspid valve is normal. * There is no tricuspid stenosis. * There is trace tricuspid regurgitation. Aortic Valve * The aortic valve is trileaflet. * Aortic stenosis is absent. * There is no significant aortic regurgitation. Pulmonic Valve * The pulmonary valve is not well seen, but the Doppler examination is normal without significant regurgitation or stenosis. Great Vessels * The aortic root is normal size. Pericardium/Pleural * There is no pericardial effusion. Great Vessels * Normal inferior vena cava diameter and respiratory variation suggests normal central venous pressure. Left Ventricular Diastolic Function * Grade I diastolic dysfunction, (abnormal relaxation pattern). MMode 2D Measurements and Calculations IVSd 1.1 cm IVSs 2.0 cm LVIDd 4.3 cm LVIDs 2.7 cm LVPWd 1.2 cm LVPWs 1.7 cm IVS/LVPW 0.97 FS 38.0 % EDV(Teich) 82.5 ml ESV(Teich) 26.0 ml EF(Teich) 68.5 % EDV(cubed) 78.8 ml ESV(cubed) 18.8 ml EF(cubed) 76.1 % % IVS thick 74.4 % % LVPW thick 49.1 % LV mass(C)d 172.7 grams LV mass(C)dI 92.1 grams/m\S\2 LV mass(C)s 200.2 grams LV mass(C)sI 106.8 grams/m\S\2 SV(Teich) 56.5 ml SI(Teich) 30.1 ml/m\S\2 SV(cubed) 60.0 ml SI(cubed) 32.0 ml/m\S\2 ACS 1.6 cm LA dimension 4.7 cm asc Aorta Diam 2.9 cm LVOT diam 2.2 cm LVOT area 3.7 cm\S\2 LVAd ap4 38.3 cm\S\2 LVLd ap4 8.7 cm EDV(MOD-sp4) 140.7 ml EDV(sp4-el) 142.8 ml LVAs ap4 19.3 cm\S\2 LVLs ap4 7.1 cm ESV(MOD-sp4) 44.5 ml ESV(sp4-el) 44.2 ml EF(MOD-sp4) 68.4 % EF(sp4-el) 69.1 % LVAd ap2 32.6 cm\S\2 LVLd ap2 8.5 cm EDV(MOD-sp2) 101.1 ml EDV(sp2-el) 106.2 ml LVAs ap2 15.2 cm\S\2 LVLs ap2 6.1 cm ESV(MOD-sp2) 33.9 ml ESV(sp2-el) 32.5 ml EF(MOD-sp2) 66.5 % EF(sp2-el) 69.4 % LVLd %diff -3.02 % EDV(MOD-bp) 119.8 ml LVLs %diff -17.76 % ESV(MOD-bp) 41.8 ml EF(MOD-bp) 65.1 % SV(MOD-sp4) 96.2 ml SI(MOD-sp4) 51.3 ml/m\S\2 SV(MOD-sp2) 67.2 ml SI(MOD-sp2) 35.8 ml/m\S\2 SV(MOD-bp) 78.0 ml SI(MOD-bp) 41.6 ml/m\S\2 SV(sp4-el) 98.6 ml SI(sp4-el) 52.6 ml/m\S\2 SV(sp2-el) 73.7 ml SI(sp2-el) 39.3 ml/m\S\2 Doppler Measurements and Calculations MV E max ngoc 63.7 cm/sec MV A max ngoc 89.8 cm/sec MV E/A 0.71 MV dec time 0.27 sec Ao V2 max 168.2 cm/sec Ao max PG 11.3 mmHg Ao max PG (full) 6.9 mmHg HETAL(V,A) 2.3 cm\S\2 HETAL(V,D) 2.3 cm\S\2 LV V1 max PG 4.4 mmHg LV V1 max 105.1 cm/sec PA V2 max 87.9 cm/sec PA max PG 3.1 mmHg TR max ngoc 255.2 cm/sec
--- NOTE | 2017-01-25 14:16 | DIAGNOSTIC IMAGING REPORT ---
CHEST ONE VIEW PORTABLE HISTORY: epigastric pain COMPARISON: Chest 10/09/2016. FINDINGS: There are low lung volumes. No focal lung consolidations to suggest pneumonia. No evidence for pulmonary edema. The heart is stable in size. No pleural effusions. No pneumothorax. IMPRESSION: No significant change compared to the prior study. No acute process. Electronically signed by: Elmer Quan M.D. 01/25/2017 2:15 PM Dictated Date/Time: 01/25/2017 2:13 PM
[2017-01-25] MEDS ORDERED: HYDROmorphone INJ 1 MG/ML SYR IV PRN (15:00)
[2017-01-25] MEDS ORDERED: MoRPHine SULFATE 2 MG/ML CARP ONE (15:22)
[2017-01-25] MEDS ORDERED: MoRPHine SULFATE 2 MG/ML CARP IV STA (15:34)
--- NOTE | 2017-01-25 15:44 | Progress Note ---
Internal Med Progress Note Date of Service: Jan 25, 2017. Provider Documentation: SUBJECTIVE: The patient was seen and examined S/P Laparoscopic cholecystectomy and paraesophageal hernia repair performed at [facility] by Dr. Shay on 01/20/17. Admitted with increasing epigastric /abdominal pain -no nausea and or vomiting No fever or chills and no obstruction on CT of Abd/Pelvis OBJECTIVE: Vital Signs-as noted below Exam: General-Still in moderate pain No abdominal distension Eyes-normal ENT-normal Neck-supple Lungs-Clear to ausucltate bilaterally Heart-Regular,no murmur appreciated Abdomen-Soft,mildly distended,Tender,in epigastrium and all over Bowel sound present Extremities-Trace edema bilaterally Neuro-AAOx3 Lab data as noted below. ASSESSMENT & PLAN: ABDOMINAL PAIN Upper abdominal pain 4 days after laparoscopic cholecystectomy and paraesophageal hernia repair. CT demonstrates expected postsurgical changes ,no fluid collection suggestive of abscess and no sepsis NO obstruction IV fluid ,Pain medication Continue oxycodone. Full liquid diet x 3 more days per postop instructions. If the condition does not improve with conservative management will get Surgery involved /transfer to [place] ELEVATED TROPONIN Serum troponin slightly elevated and were creeping up to 0.5 No acute EKG changes. Patient primarily experiencing epigastric pain few days postoperatively but no Chest pain Doubt acute coronary syndrome. Cardiology consulted -appreciate inpur Will get CTA to r/o Pulmonary embolism GERD Continue PPI. FIBROMYALGIA Continue pregabalin. Has been on Narcotics as well and requiring a lot to control pain DEPRESSION Continue usual meds. VTE PROPHYLAXIS Moderate risk- chronic lymphedema, postop status. Has significant ecchymoses of upper abdomen, so will use SCD's rather than anticoagulants. Ambulate as able. RESUSCITATION STATUS Full code. DISPOSITION Observation status on Telemetry Unit. Expected discharge to home. Internal Medicine follow-up with Dr. Ceron. Surgical follow-up with Dr. Shay. . Vital Signs: Date Time Temp Pulse Resp B/P (MAP) Pulse Ox O2 Delivery O2 Flow Rate FiO2 01/25/17 12:00 96 Room Air 01/25/17 11:11 36.5 77 18 143/89 (107) 98 Room Air 01/25/17 10:00 96 Room Air 01/25/17 08:00 96 Room Air 01/25/17 07:33 36.8 78 20 153/93 (113) 96 Room Air 01/25/17 05:15 36.8 75 17 137/84 (101) 97 Room Air 01/25/17 04:00 Room Air 01/25/17 00:21 36.8 81 26 165/96 96 Room Air 01/24/17 23:57 81 20 156/95 95 Room Air 01/24/17 23:02 81 21 167/98 96 Room Air 01/24/17 22:34 92 21 146/94 96 Room Air 01/24/17 22:16 92 01/24/17 21:19 76 17 175/113 99 Room Air 01/24/17 20:37 77 23 174/104 98 Room Air 01/24/17 18:47 85 23 161/100 97 Room Air 01/24/17 18:20 77 16 129/88 98 Room Air 01/24/17 18:03 74 01/24/17 17:19 36.7 75 16 146/91 97 Room Air Lab Results: Results Past 24 Hours Test 01/24/17 18:07 01/24/17 20:35 01/25/17 01:36 01/25/17 07:34 Range/Units White Blood Count 8.27 4.8-10.8 K/uL Red Blood Count 4.01 4.2-5.4 M/uL Hemoglobin 12.6 12.0-16.0 g/dL Hematocrit 38.1 37-47 % Mean Corpuscular Volume 95.0 80-100 fL Mean Corpuscular Hemoglobin 31.4 25-34 pg Mean Corpuscular Hemoglobin Concent 33.1 32-36 g/dl Platelet Count 188 130-400 K/uL Mean Platelet Volume 10.8 7.4-10.4 fL Neutrophils (%) (Auto) 78.6 % Lymphocytes (%) (Auto) 11.0 % Monocytes (%) (Auto) 9.4 % Eosinophils (%) (Auto) 0.6 % Basophils (%) (Auto) 0.2 % Neutrophils # (Auto) 6.49 1.4-6.5 K/uL Lymphocytes # (Auto) 0.91 1.2-3.4 K/uL Monocytes # (Auto) 0.78 0.11-0.59 K/uL Eosinophils # (Auto) 0.05 0-0.5 K/uL Basophils # (Auto) 0.02 0-0.2 K/uL RDW Standard Deviation 52.1 36.4-46.3 fL RDW Coefficient of Variation 15.0 11.5-14.5 % Immature Granulocyte % (Auto) 0.2 % Immature Granulocyte # (Auto) 0.02 0.00-0.02 K/uL Sodium Level 141 140 136-145 mmol/L Potassium Level 3.4 3.6 3.5-5.1 mmol/L Chloride Level 105 104 98-107 mmol/L Carbon Dioxide Level 30 28 21-32 mmol/L Anion Gap 6.0 8.0 3-11 mmol/L Blood Urea Nitrogen 8 7 7-18 mg/dl Creatinine 0.63 0.59 0.60-1.20 mg/dl Est Creatinine Clear Calc Drug Dose 102.5 109.6 ml/min Estimated GFR () 116.2 118.8 Estimated GFR (Non- 100.3 102.5 BUN/Creatinine Ratio 13.0 12.2 10-20 Random Glucose 109 134 70-99 mg/dl Lactic Acid Level 0.8 0.4-2.0 mmol/L Calcium Level 8.7 9.0 8.5-10.1 mg/dl Total Bilirubin 0.5 0.2-1 mg/dl Aspartate Amino Transf (AST/SGOT) 25 15-37 U/L Alanine Aminotransferase (ALT/SGPT) 68 12-78 U/L Alkaline Phosphatase 194 45-117 U/L Troponin I 0.051 0.190 0.207 0-0.045 ng/ml Total Protein 6.7 6.4-8.2 gm/dl Albumin 2.9 3.4-5.0 gm/dl Globulin 3.8 2.5-4.0 gm/dl Albumin/Globulin Ratio 0.8 0.9-2 Lipase 47 73-393 U/L Urine Color DK YELLOW Urine Appearance CLEAR CLEAR Urine pH 6.0 4.5-7.5 Urine Specific Baird 1.024 1.000-1.030 Urine Protein TRACE NEG Urine Glucose (UA) NEG NEG Urine Ketones NEG NEG Urine Occult Blood NEG NEG Urine Nitrite NEG NEG Urine Bilirubin NEG NEG Urine Urobilinogen NEG NEG Urine Leukocyte Esterase NEG NEG Urine WBC (Auto) 1-5 0-5 /hpf Urine RBC (Auto) 0-4 0-4 /hpf Urine Hyaline Casts (Auto) 1-5 0-5 /lpf Urine Epithelial Cells (Auto) 10-20 0-5 /lpf Urine Bacteria (Auto) NEG NEG Total Creatine Kinase 31 31 26-192 U/L Creatine Kinase MB 1.3 1.5 0.5-3.6 ng/ml Creatine Kinase MB Ratio 4.2 4.8 0-3.0 Triglycerides Level 55 0-150 mg/dl Cholesterol Level 134 0-200 mg/dl HDL Cholesterol 84 mg/dl LDL Cholesterol, Calculated 39 mg/dl VLDL Cholesterol, Calculated 11 mg/dl Cholesterol/HDL Ratio 1.6 Test 01/25/17 13:54 Range/Units Troponin I 0.181 0-0.045 ng/ml
[2017-01-25] MEDS: ZOLPIDEM TARTRATE 5 MG TAB PO PRN (23:19)
[2017-01-26] VITALS: O2SAT 96
[2017-01-26] MEDS: MoRPHine SULFATE 4 MG/ML 1 ML CARP\\VIAL IV PRN ×9 (00:08→21:37)
[2017-01-26 00:16] VITALS: BP 116/79; PULSE 95; TEMP 37.1; O2SAT 95
[2017-01-26 05:21] VITALS: BP 138/90; PULSE 100; TEMP 36.9; O2SAT 93
--- NOTE | 2017-01-26 06:05 | DIAGNOSTIC IMAGING REPORT ---
(CHEST FOR PE) ANGIO WITH CT DOSE: 336.63 mGy.cm HISTORY: Chest pain dyspnea TECHNIQUE: Multiaxial CT images of the chest were performed following the intravenous administration of contrast to evaluate the pulmonary arteries. Maximal intensity projection images were also obtained. A dose lowering technique was utilized adhering to the principles of ALARA. COMPARISON STUDY: None. FINDINGS: The thoracic aorta is normal in course and caliber. Pulmonary vasculature enhances appropriately. No major filling defects. Nonspecific subcutaneous emphysema over the lateral and anterior chest cotton are noted. Etiology is unclear. Lungs are considered generally clear. Mild amount of abdominal ascites is again noted. IMPRESSION: 1. Study is negative for pulmonary embolus. 2. Scattered chest wall emphysematous change. 3. Trace bilateral pleural effusions. 4. Upper abdominal ascites.. The above report was generated using voice recognition software. It may contain grammatical, syntax or spelling errors. Electronically signed by: Tello Warren M.D. 01/26/2017 6:04 AM Dictated Date/Time: 01/26/2017 6:01 AM
[2017-01-26 06:55] LABS: HEMATOCRIT 40.8 % (37-47); MEAN CELL VOLUME 94.4 fL (80-100); MEAN CORPUSCULAR HEMOGLOBIN 31.5 pg (25-34); MEAN CORPUSCULAR HGB CONC 33.3 g/dl (32-36); MEAN PLATELET VOLUME 11.1 fL (7.4-10.4); PLATELET COUNT 184 K/uL (130-400); RED BLOOD COUNT 4.32 M/uL (4.2-5.4); WHITE BLOOD COUNT 10.77 K/uL (4.8-10.8)
[2017-01-26 07:30] VITALS: BP 119/77; PULSE 111; TEMP 37; O2SAT 92
[2017-01-26 07:32] LABS: BUN/CREATININE RATIO 13.2 (10-20); CALCIUM 8.8 mg/dl (8.5-10.1); CREATININE 0.57 mg/dl (0.60-1.20); POTASSIUM 3.7 mmol/L (3.5-5.1)
[2017-01-26] MEDS: PANTOprazole SOD 40 MG TAB PO SCH ×2 (07:48→21:15)
[2017-01-26] MEDS: SUCRALFATE 1 GM TAB PO SCH ×4 (07:48→21:16)
[2017-01-26] MEDS: VENLAFAXINE HCL 50 MG TAB PO SCH ×2 (07:49→21:16)
[2017-01-26] MEDS: BACLOFEN 10 MG TAB PO SCH ×2 (07:49→21:15)
[2017-01-26 07:50] LABS: ALB/GLOB RATIO 0.6 (0.9-2)
[2017-01-26] MEDS: PREGABALIN 100 MG CAP PO SCH ×2 (07:54→12:31)
--- NOTE | 2017-01-26 11:39 | CARDIOLOGY PROGRESS NOTE ---
DATE: 01/26/2017 SUBJECTIVE The patient was seen and examined at the bedside. He continues to note significant abdominal discomfort. No chest pain reported. No dysrhythmias on telemetry. Resting 2D transthoracic echo demonstrates borderline hyperdynamic left ventricular function without regional wall motion abnormality. REVIEW OF SYSTEMS: Positive for abdominal discomfort, 4-system review including cardiovascular, pulmonary, and neurologic systems otherwise negative. LABORATORY DATA: White blood cell count 10.77, hemoglobin is 13.6, and platelet count is 184. Sodium 138, potassium 3.7, chloride 103, CO2 is 28, BUN is 8, and creatinine is 0.57. PHYSICAL EXAMINATION: VITAL SIGNS: Temperature is 37 degrees centigrade, pulse 100 beats per minute and regular, respiratory rate is 20 breaths per minute, blood pressure 119/77 and SaO2 is 93% on room air. GENERAL: Mild distress due to abdominal discomfort. HEENT: Mucous membranes are moist. No scleral icterus. HEART: Regular with a normal S1 and S2. No murmur, rub or gallop. LUNGS: Clear without rales, rhonchi or wheeze. ABDOMEN: Diffusely tender and mildly distended. There is no rebound or guarding. Bowel sounds are appreciated. EXTREMITIES: Warm and dry without clubbing, cyanosis, or edema. NEUROLOGIC: Demonstrates no focal deficit. FINAL IMPRESSION: 1. Mildly elevated troponin, not indicative of acute coronary syndrome with normal ECG, no regional wall motion abnormality on echo and absence of chest discomfort. CT angiogram of the chest was performed for completeness to exclude presence of pulmonary embolus due to recent surgery and confinement The study was negative for pulmonary embolus. 2. History of hypertensive heart disease and diastolic heart failure - the patient appears compensated with controlled blood pressure. 3. Morbid obesity, status post gastric bypass. 4. Recent laparoscopic cholecystectomy and hiatal hernia repair with continued abdominal discomfort. PLAN AND RECOMMENDATIONS Suggest GI or general surgery consultation for further evaluation of ongoing abdominal and epigastric discomfort. No further cardiac testing will be performed at this time. No medication changes. I will sign off. Please do not hesitate to call with further cardiac concerns or questions. MTDD
[2017-01-26 12:15] VITALS: BP 115/78; PULSE 107; TEMP 36.9; O2SAT 95
--- NOTE | 2017-01-26 13:20 | Progress Note ---
Internal Med Progress Note Date of Service: Jan 26, 2017. Provider Documentation: SUBJECTIVE: The patient was seen and examined S/P Laparoscopic cholecystectomy and paraesophageal hernia repair performed at [facility] by Dr. Shay on 01/20/17. Admitted with increasing epigastric /abdominal pain -no nausea and or vomiting No fever or chills and no obstruction on CT of Abd/Pelvis Not any better Minimal abdominal distension Denies any Nausea and or vomiting Bowel moved OBJECTIVE: Vital Signs-as noted below Exam: General-Still in moderate pain Minimal abdominal distension Eyes-normal ENT-normal Neck-supple Lungs-Clear to ausucltate bilaterally Heart-Regular,no murmur appreciated Abdomen-Soft,mildly distended,Tender,in epigastrium and all over Bowel sound sluggish Extremities-Trace edema bilaterally Neuro-AAOx3 Lab data as noted below. ASSESSMENT & PLAN: ABDOMINAL PAIN Upper abdominal pain 4 days after laparoscopic cholecystectomy and paraesophageal hernia repair. CT demonstrates expected postsurgical changes ,no fluid collection suggestive of abscess and no sepsis NO obstruction on CT IV fluid ,Pain medication Continue oxycodone. Full liquid diet x 3 more days per postop instructions. If the condition does not improve with conservative management will get Surgery involved /transfer to [place] Clinically not any better with increased abdominale distension but no Nausea and or vomiting Surgery consulted for further evaluation ELEVATED TROPONIN Serum troponin slightly elevated and were creeping up to 0.5 No acute EKG changes. Patient primarily experiencing epigastric pain few days postoperatively but no Chest pain Doubt acute coronary syndrome. Cardiology consulted -appreciate inpur Will get CTA to r/o Pulmonary embolism-no Pulmonary embolism Cardiology signed off GERD Continue PPI. FIBROMYALGIA Continue pregabalin. Has been on Narcotics as well and requiring a lot to control pain Will try to increase any more pain medications DEPRESSION Continue usual meds. VTE PROPHYLAXIS Moderate risk- chronic lymphedema, postop status. Has significant ecchymoses of upper abdomen, so will use SCD's rather than anticoagulants. Ambulate as able. RESUSCITATION STATUS Full code. DISPOSITION Observation status on Telemetry Unit. Expected discharge to home. Internal Medicine follow-up with Dr. Ceron. Surgical follow-up with Dr. Shay. Discussed with the family members . Vital Signs: Date Time Temp Pulse Resp B/P (MAP) Pulse Ox O2 Delivery O2 Flow Rate FiO2 01/26/17 12:15 36.9 107 18 115/78 (90) 95 Room Air 01/26/17 08:00 Room Air 01/26/17 07:30 37.0 111 20 119/77 (91) 92 Room Air 01/26/17 05:21 36.9 100 19 138/90 (106) 93 Room Air 01/26/17 04:00 Room Air 01/26/17 00:16 37.1 95 18 116/79 (91) 95 Room Air 01/26/17 00:00 Room Air 01/26/17 00:00 96 Room Air 01/25/17 20:00 96 Room Air 01/25/17 20:00 Room Air 01/25/17 19:34 36.3 72 20 173/91 (118) 100 Room Air 01/25/17 16:00 96 Room Air 01/25/17 15:49 36.9 101 20 133/83 (100) 99 Room Air Lab Results: Results Past 24 Hours Test 01/25/17 13:54 01/26/17 06:29 Range/Units Troponin I 0.181 0-0.045 ng/ml White Blood Count 10.77 4.8-10.8 K/uL Red Blood Count 4.32 4.2-5.4 M/uL Hemoglobin 13.6 12.0-16.0 g/dL Hematocrit 40.8 37-47 % Mean Corpuscular Volume 94.4 80-100 fL Mean Corpuscular Hemoglobin 31.5 25-34 pg Mean Corpuscular Hemoglobin Concent 33.3 32-36 g/dl RDW Standard Deviation 52.5 36.4-46.3 fL RDW Coefficient of Variation 15.1 11.5-14.5 % Platelet Count 184 130-400 K/uL Mean Platelet Volume 11.1 7.4-10.4 fL Sodium Level 138 136-145 mmol/L Potassium Level 3.7 3.5-5.1 mmol/L Chloride Level 103 98-107 mmol/L Carbon Dioxide Level 28 21-32 mmol/L Anion Gap 7.0 3-11 mmol/L Blood Urea Nitrogen 8 7-18 mg/dl Creatinine 0.57 0.60-1.20 mg/dl Est Creatinine Clear Calc Drug Dose 115.4 ml/min Estimated GFR () 120.1 Estimated GFR (Non- 103.6 BUN/Creatinine Ratio 13.2 10-20 Random Glucose 116 70-99 mg/dl Calcium Level 8.8 8.5-10.1 mg/dl Total Bilirubin 1.2 0.2-1 mg/dl Aspartate Amino Transf (AST/SGOT) 12 15-37 U/L Alanine Aminotransferase (ALT/SGPT) 35 12-78 U/L Alkaline Phosphatase 231 45-117 U/L Total Protein 6.4 6.4-8.2 gm/dl Albumin 2.3 3.4-5.0 gm/dl Globulin 4.1 2.5-4.0 gm/dl Albumin/Globulin Ratio 0.6 0.9-2
--- NOTE | 2017-01-26 14:19 | Pre-Operative Consultation ---
History General Date of Service: Jan 26, 2017. Stated Complaint: post-op pain, nausea HPI HPI: The patient is a 56 year old female being seen for pain after lap joey and paraesophageal hernia repair. She came to the Emergency Room with complaints of diffuse abdominal tenderness. She had above procedures performed last friday in [place]. She has had pain but worsened 2 days ago and has been in hospital since; she has had a normal appearing post-op CT scan of abdomen, negative CT angiogram' and has ruled out for [place]. She has used all her oxycodone given to her by [place] surgeon. The patient states that she is nauseous, she dry heaves , and she feels bloated. She states that she had a normal bowel movement, and she has been passing gas. Pt denies headache, change in vision, fevers, chest pain, shortness of breath, diarrhea, pain with urination, and melena. Procedure Urgency: Acute Risk Assessment Daily beta christie use?: No Problem List Medical Problems: (1) Abdominal pain Status: Acute (2) Altered mental status Status: Acute (3) Cellulitis Status: Acute (4) Dog bite Status: Acute (5) Drug overdose Status: Acute (6) Elevated troponin Status: Acute (7) Excessive sleepiness Status: Acute (8) Gastritis Status: Acute (9) Marijuana abuse Status: Acute (10) Medication reaction Status: Acute (11) Muscle spasm Status: Acute (12) Nausea Status: Acute (13) Polysubstance abuse Status: Acute (14) Respiratory acidosis Status: Acute (15) Respiratory failure Status: Acute (16) Seizure-like activity Status: Acute (17) Suicidal ideation Status: Acute (18) Vomiting Status: Acute Social History Problems: (1) History of gastric bypass Status: Acute Medical & Surgical History Past Medical History: depression, high cholesterol, hypertension, pneumonia, other Past Surgical History: appendectomy, cholecystectomy, gastric bypass, orthopedic surgery, other (lap paraesophageal repair) Family History Family History: no pertinent family hx Social History Hx Tobacco Use In Past Year?: No Smoking Status: Former Smoker Alcohol: none Drug Use: none, marijuana Marital status: Housing status: lives with significant other Occupation status: unemployed Immunizations Have You Had Influenza Vaccine: N/A Have You Had Tetanus Vaccine: No Date Of Tetanus Immunization: Aug 09, 2004 History of Pneumococcal: Yes History Hepatitis B Vaccine: No Allergies Allergies: Coded Allergies: Codeine (Verified Allergy, Intermediate, DIARRHEA/RASH,TOLERATES PERCOCET , 11/26/16) TOLERATES PERCOCET NSAIDs (Verified Allergy, Unknown, UNKNOWN, 11/26/16) Clonazepam (Verified Adverse Reaction, Intermediate, "PASS OUT", 12/03/16) Hydrocodone (Verified Adverse Reaction, Intermediate, OVER SEDATION, ) Hydromorphone (Verified Adverse Reaction, Intermediate, weakness,sweating , 12/03/16) Sulfamethoxazole w/Trimethoprim (Verified Adverse Reaction, Intermediate, DELIRIUM, 11/26/16) pt devoped invontary muscle spasm ; Aspirin (Verified Adverse Reaction, Mild, STOMACH IRRITATION, 12/03/16) Cephalexin (Verified Adverse Reaction, Mild, GI SYMPTOMS, 12/03/16) UPSET STOMACH Medications Current Inpatient Medications Current Inpatient Medications Medications (Trade) Dose Ordered Sig/Gabriel Route Start Time Stop Time Status Last Admin Dose Admin Ioversol (Optiray 320) 100 ml UD PRN IV 01/24/17 21:45 01/28/17 21:44 Ondansetron HCl (Zofran Inj) 4 mg Q6H PRN IV 01/24/17 23:45 02/23/17 23:44 Miscellaneous (Iv Fluids Completed) 1 ea PRN PRN N/A 01/24/17 23:45 01/24/18 23:44 Acetaminophen (Tylenol Tab) 500 mg Q4 PRN PO 01/25/17 00:30 02/24/17 00:29 Baclofen (Lioresal Tab) 5 mg BID PO 01/25/17 09:00 02/24/17 08:59 01/26/17 07:49 5 MG Pregabalin (Lyrica Cap) 100 mg QD@1200 PO 01/25/17 12:00 02/24/17 11:59 01/26/17 12:31 100 MG Pregabalin (Lyrica Cap) 200 mg QAM PO 01/25/17 09:00 02/24/17 08:59 01/26/17 07:54 200 MG Sucralfate (Carafate Tab) 1 gm QID PO 01/25/17 09:00 02/24/17 08:59 01/26/17 12:31 1 GM Venlafaxine HCl (effeXOR TAB) 100 mg BID PO 01/25/17 09:00 02/24/17 08:59 01/26/17 07:49 100 MG Buspirone HCl (Buspar Tab) 10 mg BID PO 01/25/17 09:00 02/24/17 08:59 01/26/17 07:48 10 MG Pantoprazole Sodium (Protonix Tab) 40 mg BID PO 01/25/17 09:00 02/24/17 08:59 01/26/17 07:48 40 MG Oxycodone HCl (Roxicodone Soln) 10 mg Q4H PRN PO 01/25/17 05:45 02/08/17 05:44 01/25/17 23:19 10 MG Morphine Sulfate (MoRPHine SULFATE INJ) 4 mg Q2H PRN IV 01/25/17 15:15 02/08/17 15:14 01/26/17 12:31 4 MG Zolpidem Tartrate (Ambien Tab) 5 mg HS PRN PO 01/25/17 22:30 02/24/17 22:29 01/25/17 23:19 5 MG Review of Systems Review of Systems Constitutional: denies chills, denies diaphoresis, denies fever Eyes: reports: no symptoms ENT: reports: no symptoms reported Cardiovascular: reports: chest pain, denies: chest tightness, chest pressure, palpitations Respiratory: denies: cough, orthopnea, short of breath, stridor Gastrointestinal: abdominal pain, denies constipation, denies diarrhea, nausea , denies vomiting Genitourinary - Female: reports: no symptoms Musculoskeletal: back pain, denies joint pain, denies joint swelling, denies muscle stiffness, denies neck pain Integumentary: denies change in hair/nails, denies dryness, denies lumps, denies rash Neurologic: reports: no symptoms Psychiatric: reports: anxiety, depression Endocrine: no symptoms Hematologic / Lymphatic: no symptoms Allergic / Immunologic: no symptoms Physical Exam Physical Exam General Appearance: + WD/WN, No distress Ears, Nose, Throat: + normal ENT inspection Neck: No abnormal inspection, No tracheal deviation, No lymphadenophy Respiratory: No chest tenderness, No decreased breath sounds, No rhonchi, No stridor, No wheezing Cardiovascular: No tachycardia, No gallop/S3, No diastolic murmur, No gallop/S4 , No bradycardia, No systolic murmur Abdomen: + tenderness, + other (diffuse ecchymosis in upper abdomen; incisions OK), No rebound, No hepatomegaly, No distension, No hernia, No organomegaly Extremities: No deformity, No swelling, No calf tenderness, No inflammation Neurologic/Psychiatric: No motor deficit/weakness, No disorientation, No sensory deficit Skin Characteristics: + other (ecchymosis), No abnormal color, No cyanosis, No mottling, No diaphoresis, No pallor, No jaundice, No rash Lymphatic: No abnormal adenopathy Diagnostics Labs Labs Results Past 24 Hours Test 01/26/17 06:29 Range/Units White Blood Count 10.77 4.8-10.8 K/uL Red Blood Count 4.32 4.2-5.4 M/uL Hemoglobin 13.6 12.0-16.0 g/dL Hematocrit 40.8 37-47 % Mean Corpuscular Volume 94.4 80-100 fL Mean Corpuscular Hemoglobin 31.5 25-34 pg Mean Corpuscular Hemoglobin Concent 33.3 32-36 g/dl RDW Standard Deviation 52.5 36.4-46.3 fL RDW Coefficient of Variation 15.1 11.5-14.5 % Platelet Count 184 130-400 K/uL Mean Platelet Volume 11.1 7.4-10.4 fL Sodium Level 138 136-145 mmol/L Potassium Level 3.7 3.5-5.1 mmol/L Chloride Level 103 98-107 mmol/L Carbon Dioxide Level 28 21-32 mmol/L Anion Gap 7.0 3-11 mmol/L Blood Urea Nitrogen 8 7-18 mg/dl Creatinine 0.57 0.60-1.20 mg/dl Est Creatinine Clear Calc Drug Dose 115.4 ml/min Estimated GFR () 120.1 Estimated GFR (Non- 103.6 BUN/Creatinine Ratio 13.2 10-20 Random Glucose 116 70-99 mg/dl Calcium Level 8.8 8.5-10.1 mg/dl Total Bilirubin 1.2 0.2-1 mg/dl Aspartate Amino Transf (AST/SGOT) 12 15-37 U/L Alanine Aminotransferase (ALT/SGPT) 35 12-78 U/L Alkaline Phosphatase 231 45-117 U/L Total Protein 6.4 6.4-8.2 gm/dl Albumin 2.3 3.4-5.0 gm/dl Globulin 4.1 2.5-4.0 gm/dl Albumin/Globulin Ratio 0.6 0.9-2 Diagnostic Radiology Diagnostic Radiology ABD/PELVIS IV AND ORAL CONT CT DOSE: 580.32 mGy.cm HISTORY: Pain abd pain, post op TECHNIQUE: Multiaxial CT images of the abdomen and pelvis were performed following the use of intravenous and oral contrast. A dose lowering technique was utilized adhering to the principles of ALARA. COMPARISON STUDY: 11/11/2015 FINDINGS: Lung bases are clear. Subcutaneous emphysema in the lateral chest wall regions bilaterally. Trace amount of perihepatic ascites possibly postoperative. There has been a cholecystectomy. Moderate prominence of biliary ductal system compared to the prior study. The common bile duct currently measures 11 mm. Mild intrahepatic biliary ductal distention. Findings of prior gastric bypass procedure. Small amount of perisplenic ascites. Trace ascites within the right flank possibly postoperative. Moderate ascites within the pelvis. Mild fecal impaction. No evidence of bowel obstructive change. IMPRESSION: 1. Scattered subcutaneous air/emphysematous change within the chest wall regions laterally. 2. Small amount of abdominal and to a somewhat greater extent pelvic ascites. 3. Mild development of moderate biliary ductal distention compared to the prior study status post cholecystectomy. 5. Operative changes consistent with a known gastric bypass type procedure. 6. Nonobstructive bowel pattern. 7. Mild fecal impaction. Impression Assessment and Plan Assessment and Plan s/p lap joey/paraesophageal hernia repair -post-op pain likely related to normal post-op pain and accentuated by bleeding into upper abdomen from muscular bleeder causing ecchymosis, which has stopped -used significant pain medication in the 4 days post-op -no surgical issues to require hospitalization -discharge per medical team -caution patient about amount of narctics used in 4 days -CT appears also to show fecal retention -con't diet as per surgeon in [place]
[2017-01-26 16:20] VITALS: BP 114/79; PULSE 114; TEMP 37.2; O2SAT 93
[2017-01-27] VITALS (7 sets, daily range): BP systolic 113–121; BP diastolic 71–88; PULSE 82–108; TEMP 36.7–37.3; O2SAT 91–96
[2017-01-27] MEDS: MoRPHine SULFATE 4 MG/ML 1 ML CARP\\VIAL IV PRN ×2 (02:41→08:38)
[2017-01-27] MEDS: PANTOprazole SOD 40 MG TAB PO SCH ×2 (07:54→20:49)
[2017-01-27] MEDS: PREGABALIN 100 MG CAP PO SCH ×2 (07:54→12:58)
[2017-01-27] MEDS: SUCRALFATE 1 GM TAB PO SCH ×4 (07:55→20:47)
[2017-01-27] MEDS: VENLAFAXINE HCL 50 MG TAB PO SCH ×2 (07:55→20:48)
[2017-01-27] MEDS: BACLOFEN 10 MG TAB PO SCH ×2 (07:56→20:48)
[2017-01-27] MEDS ORDERED: MoRPHine SULFATE 4 MG/ML 1 ML CARP\\VIAL IV PRN (10:30)
[2017-01-27] MEDS: OXYCODONE HCL SOLN 5 MG/5 ML UDC PO PRN ×3 (12:59→20:54)
--- NOTE | 2017-01-27 14:33 | Progress Note ---
Internal Med Progress Note Date of Service: Jan 27, 2017. Provider Documentation: SUBJECTIVE: The patient was seen and examined S/P Laparoscopic cholecystectomy and paraesophageal hernia repair performed at [facility] by Dr. Shay on 01/20/17. Admitted with increasing epigastric /abdominal pain -no nausea and or vomiting No fever or chills and no obstruction on CT of Abd/Pelvis Remains stable Denies any abdominal Distention,Nausea and or vomiting Bowel is moving OBJECTIVE: Vital Signs-as noted below Exam: General-Still in moderate pain Minimal abdominal distension Eyes-normal ENT-normal Neck-supple Lungs-Clear to ausucltate bilaterally Heart-Regular,no murmur appreciated Abdomen-Soft,mildly distended,Tender,in epigastrium and all over Bowel sound sluggish Extremities-Trace edema bilaterally Neuro-AAOx3 Lab data as noted below. ASSESSMENT & PLAN: ABDOMINAL PAIN Upper abdominal pain 4 days after laparoscopic cholecystectomy and paraesophageal hernia repair. CT demonstrates expected postsurgical changes ,no fluid collection suggestive of abscess and no sepsis NO obstruction on CT IV fluid ,Pain medication Continue oxycodone. Full liquid diet x 3 more days per postop instructions. If the condition does not improve with conservative management will get Surgery involved /transfer to [place] Clinically not any better with increased abdominale distension but no Nausea and or vomiting Surgery consulted for further evaluation -appreciate input No acute surgery recommended Diet advanced and pain medications adjusted ELEVATED TROPONIN Serum troponin slightly elevated and were creeping up to 0.5 No acute EKG changes. Patient primarily experiencing epigastric pain few days postoperatively but no Chest pain Doubt acute coronary syndrome. Cardiology consulted -appreciate inpur Will get CTA to r/o Pulmonary embolism-no Pulmonary embolism Cardiology signed off GERD Continue PPI. FIBROMYALGIA Continue pregabalin. Has been on Narcotics as well and requiring a lot to control pain Will not try to increase any more pain medications Continue Oral pain med DEPRESSION Continue usual meds. VTE PROPHYLAXIS Moderate risk- chronic lymphedema, postop status. Has significant ecchymoses of upper abdomen, so will use SCD's rather than anticoagulants. Ambulate as able. RESUSCITATION STATUS Full code. DISPOSITION Observation status on Telemetry Unit. Expected discharge to home. Internal Medicine follow-up with Dr. Ceron. Surgical follow-up with Dr. Shay. Discussed with the family members PT/OT requested Social service for discharge planning . Vital Signs: Date Time Temp Pulse Resp B/P (MAP) Pulse Ox O2 Delivery O2 Flow Rate FiO2 01/27/17 11:37 36.9 108 18 113/77 (89) 95 Room Air 01/27/17 08:00 Room Air 01/27/17 07:49 36.7 82 18 121/85 (97) 96 Room Air 01/27/17 03:19 36.8 100 20 120/82 (95) 91 Room Air 01/27/17 00:19 36.9 88 18 114/78 (90) 92 Room Air 01/27/17 00:05 Room Air 01/26/17 20:05 Room Air 01/26/17 16:20 37.2 114 18 114/79 (91) 93 01/26/17 16:00 Room Air
[2017-01-27] MEDS: ZOLPIDEM TARTRATE 5 MG TAB PO PRN (20:53)
[2017-01-28 04:10] VITALS: BP 110/73; PULSE 79; TEMP 36.6; O2SAT 94
[2017-01-28 07:51] VITALS: BP 98/62; PULSE 95; TEMP 36.8; O2SAT 91
[2017-01-28] MEDS: OXYCODONE HCL SOLN 5 MG/5 ML UDC PO PRN (07:51)
[2017-01-28] MEDS: BACLOFEN 10 MG TAB PO SCH (08:50)
[2017-01-28] MEDS: SUCRALFATE 1 GM TAB PO SCH ×2 (08:50→12:28)
[2017-01-28] MEDS: PANTOprazole SOD 40 MG TAB PO SCH (08:51)
[2017-01-28] MEDS: VENLAFAXINE HCL 50 MG TAB PO SCH (08:51)
[2017-01-28] MEDS: PREGABALIN 100 MG CAP PO SCH ×2 (08:59→12:29)
--- NOTE | 2017-01-28 09:36 | Cardiology Follow-Up ---
Subjective General Date of Service: Jan 28, 2017. Chief Complaint: abdominal pain Pt evaluation today including: conversation w/ patient, conversation w/ family , physical exam, chart review, lab review, review of studies, conversation w/ healthcare network pricing consultant History of Present Illness Asked to see the patient again this morning due to 4 kg weight gain since admission. Patient is concerned that this is "abnormal" for her. She reports increased LE edema and slight dyspnea with cough this AM. She reports when this happens at home she takes furosemide 40 mg tab (not on home med list) with improvement in her symptoms. Otherwise abdominal pain improved this AM. No orthopnea, PND. No chest pain. No significant SOB noted at rest. Allergies Coded Allergies: Codeine (Verified Allergy, Intermediate, DIARRHEA/RASH,TOLERATES PERCOCET , 11/26/16) TOLERATES PERCOCET NSAIDs (Verified Allergy, Unknown, UNKNOWN, 11/26/16) Clonazepam (Verified Adverse Reaction, Intermediate, "PASS OUT", 12/03/16) Hydrocodone (Verified Adverse Reaction, Intermediate, OVER SEDATION, ) Hydromorphone (Verified Adverse Reaction, Intermediate, weakness,sweating , 12/03/16) Sulfamethoxazole w/Trimethoprim (Verified Adverse Reaction, Intermediate, DELIRIUM, 11/26/16) pt devoped invontary muscle spasm ; Aspirin (Verified Adverse Reaction, Mild, STOMACH IRRITATION, 12/03/16) Cephalexin (Verified Adverse Reaction, Mild, GI SYMPTOMS, 12/03/16) UPSET STOMACH Social History Smoking Status: Former Smoker Hx Tobacco Use In Past Year?: No Hx Alcohol Use - Type And Amou: No Hx Substance Use - Type And Am: No Problem List Medical Problems: (1) Abdominal pain Status: Acute (2) Altered mental status Status: Acute (3) Cellulitis Status: Acute (4) Dog bite Status: Acute (5) Drug overdose Status: Acute (6) Elevated troponin Status: Acute (7) Excessive sleepiness Status: Acute (8) Gastritis Status: Acute (9) Marijuana abuse Status: Acute (10) Medication reaction Status: Acute (11) Muscle spasm Status: Acute (12) Nausea Status: Acute (13) Polysubstance abuse Status: Acute (14) Respiratory acidosis Status: Acute (15) Respiratory failure Status: Acute (16) Seizure-like activity Status: Acute (17) Suicidal ideation Status: Acute (18) Vomiting Status: Acute Social History Problems: (1) History of gastric bypass Status: Acute Review of Systems Respiratory: + cough, No sputum, No wheezing, No shortness of breath, No dyspnea at rest, No hemoptysis Cardiac: No chest pain, No orthopnea, No PND, No edema, No palpitations Physical Exam Vital Signs Last Vital Signs Documentation Date Time Temp Pulse Resp B/P (MAP) Pulse Ox O2 Delivery O2 Flow Rate FiO2 01/28/17 07:51 36.8 95 18 98/62 (74) 91 Room Air Physical Exam Constitutional: General Apperance: obese Level of Distress: NAD Ambulation: ambulating normally Psychiatric: Mental Status: active & alert Orientation: to time, to place, to person Head: normocephalic Eyes: Pupils: PERRLA Neck: supple Lungs: Respiratory effort: no dyspnea Auscultation: decreased breath sounds (faint rales noted bases b/l. ) Cardiovascular: Apical Impulse: not displaced Heart Auscultation: RRR, normal S1, normal S2, no murmurs Extremities: no edema Assessment and Plan Assessment and Plan FINAL IMPRESSION: 56 year old female 1 Weight gain, with associated patient reported LE edema and mild dyspnea this AM, consistent with possible mild diastolic HF exacerbation. NO significant edema noted on my exam. Mild rales noted bases bilaterally. PLAN AND RECOMMENDATIONS Updated BMP today Furosemide 40 mg x 1 dose this AM. Discussed with Dr. Cui and Dr. Leyva. Otherwise stable for discharge later today. Cardiology attending physician: Patient seen and examined at the bedside. Denies any abdominal discomfort today. Reported lower extremity edema this morning to steamship agent. Patient was then evaluated by [place] PAC. No significant edema noted on exam. Patient was treated with 40 mg of intravenous Lasix. She is currently feeling much better. Denies shortness of breath at this time. No chest discomfort or palpitations. PE: VSS, Gen: NAD, AAOx3. Heart: Reg, Normal S1S2. No murmur rub or gallop. Lungs: Scant crackles at the left base. No rhonchi or wheeze. Extremities: No pitting edema. A/P: Agree with above PA-C history, physical exam, assessment and plan. No further need for diuretic therapy today. Follow-up with PCP as scheduled. Cardiology prn. Emerson Leyva DO, FACC Laboratory Results Last 24 Hours Test 01/28/17 09:08
[2017-01-28 10:01] VITALS: O2SAT 91
[2017-01-28 10:18] LABS: CALCIUM 8.6 mg/dl (8.5-10.1); CREATININE 0.87 mg/dl (0.60-1.20); POTASSIUM 3.5 mmol/L (3.5-5.1)
[2017-01-28] MEDS ORDERED: FUROSEMIDE 40 MG TAB PO ONE (10:30)
--- NOTE | 2017-01-28 11:19 | Progress Note ---
Internal Med Progress Note Date of Service: Jan 28, 2017. Provider Documentation: SUBJECTIVE: The patient was seen and examined S/P Laparoscopic cholecystectomy and paraesophageal hernia repair performed at [facility] by Dr. Shay on 01/20/17. Admitted with increasing epigastric /abdominal pain -no nausea and or vomiting No fever or chills and no obstruction on CT of Abd/Pelvis Symptomatically a lot better Tolerating diet and bowel is moving OBJECTIVE: Vital Signs-as noted below Exam: General-Still in moderate pain Minimal abdominal distension Eyes-normal ENT-normal Neck-supple Lungs-Clear to ausucltate bilaterally Heart-Regular,no murmur appreciated Abdomen-Soft,mildly distended,minimally tender Bowel sound present Extremities-Trace edema bilaterally Neuro-AAOx3 Lab data as noted below. ASSESSMENT & PLAN: ABDOMINAL PAIN Upper abdominal pain 4 days after laparoscopic cholecystectomy and paraesophageal hernia repair. CT demonstrates expected postsurgical changes ,no fluid collection suggestive of abscess and no sepsis NO obstruction on CT IV fluid ,Pain medication Continue oxycodone. Full liquid diet x 3 more days per postop instructions. If the condition does not improve with conservative management will get Surgery involved /transfer to [place] Clinically not any better with increased abdominale distension but no Nausea and or vomiting Surgery consulted for further evaluation -appreciate input No acute surgery recommended Diet advanced and pain medications adjusted Tolerating regular diet and moving bowel Ambulating without much difficulty Will discharge today ELEVATED TROPONIN Serum troponin slightly elevated and were creeping up to 0.5 No acute EKG changes. Patient primarily experiencing epigastric pain few days postoperatively but no Chest pain Doubt acute coronary syndrome. Cardiology consulted -appreciate inpur Will get CTA to r/o Pulmonary embolism-no Pulmonary embolism Cardiology signed off received 40 mg of Lasix this AM GERD Continue PPI. FIBROMYALGIA Continue pregabalin. Has been on Narcotics as well and requiring a lot to control pain Will not try to increase any more pain medications Continue Oral pain med DEPRESSION Continue usual meds. VTE PROPHYLAXIS Moderate risk- chronic lymphedema, postop status. Has significant ecchymoses of upper abdomen, so will use SCD's rather than anticoagulants. Ambulate as able. RESUSCITATION STATUS Full code. DISPOSITION Internal Medicine follow-up with Dr. Ceron. Surgical follow-up with Dr. Shay. Discussed with the family members PT/OT requested Social service for discharge planning Discharge home today . Vital Signs: Date Time Temp Pulse Resp B/P (MAP) Pulse Ox O2 Delivery O2 Flow Rate FiO2 01/28/17 10:01 91 Room Air 01/28/17 10:01 Room Air 01/28/17 07:51 36.8 95 18 98/62 (74) 91 Room Air 01/28/17 04:10 36.6 79 18 110/73 (85) 94 Room Air 01/28/17 00:05 Room Air 01/27/17 23:35 36.9 85 18 121/88 (99) 94 Room Air 01/27/17 16:00 95 Room Air 01/27/17 15:50 37.3 101 118/71 (87) 95 Room Air 01/27/17 11:37 36.9 108 18 113/77 (89) 95 Room Air Lab Results: Results Past 24 Hours Test 01/28/17 09:29 Range/Units Sodium Level 135 136-145 mmol/L Potassium Level 3.5 3.5-5.1 mmol/L Chloride Level 100 98-107 mmol/L Carbon Dioxide Level 27 21-32 mmol/L Anion Gap 8.0 3-11 mmol/L Blood Urea Nitrogen 14 7-18 mg/dl Creatinine 0.87 0.60-1.20 mg/dl Est Creatinine Clear Calc Drug Dose 76.0 ml/min Estimated GFR () 86.3 Estimated GFR (Non- 74.5 BUN/Creatinine Ratio 16.0 10-20 Random Glucose 92 70-99 mg/dl Calcium Level 8.6 8.5-10.1 mg/dl
[2017-01-28 11:20] VITALS: BP 100/64; PULSE 91; TEMP 36.7; O2SAT 96
--- NOTE | 2017-01-28 13:33 | Discharge Instructions ---
Discharge Instructions Date of Service Jan 28, 2017. Admission Reason for Admission: Ab Pain, Elevated Troponin Discharge Discharge Diagnosis / Problem: Abdomnial Pain s/p Lap Shanika on 01/20 in [place] ,Chest pain-no ACS Discharge Goals Goal(s): Prevent Disease Progression Activity Recommendations Activity Limitations: resume your previous activity . Instructions / Follow-Up Instructions / Follow-Up Dr Briceno (Dr Dougherty;man is not available) on 01/31/17 at 10:05 AM.Please keep appointment with your Surgeon Current Hospital Diet Patient's current hospital diet: AHA Diet (Heart Healthy) Discharge Diet Recommended Diet: AHA Diet (Heart Healthy) Pending Studies Studies pending at discharge: no Laboratory Results Lipid Panel Test 01/25/17 07:34 Range/Units Triglycerides Level 55 0-150 mg/dl Cholesterol Level 134 0-200 mg/dl HDL Cholesterol 84 mg/dl Cholesterol/HDL Ratio 1.6 LDL Cholesterol, Calculated 39 mg/dl Medical Emergencies . Who to Call and When: Medical Emergencies: If at any time you feel your situation is an emergency, please call 911 immediately. . Non-Emergent Contact Non-Emergency issues call your: Primary Care Provider . Past History Medical & Surgical History: (1) Congestive heart failure, unspecified (2) Depression (3) Fibromyalgia (4) Anxiety (5) Organic sleep disorder (6) Abdominal pain (7) Elevated troponin (8) Gastric bypass status for obesity (9) Hx of appendectomy (10) H/O arthroscopic knee surgery (11) S/P bronchoscopy (12) S/p EGD (13) Status post cholecystectomy (14) Status post repair of paraesophageal diaphragmatic hernia . "Provider Documentation" section prepared by Ailyn Cui. . VTE Core Measure Inpt VTE Proph given/why not?: SCD's
[2017-01-28 13:37] VITALS: BP 100/64; PULSE 91; TEMP 36.7; O2SAT 96
--- NOTE | 2017-01-29 09:22 | Discharge Summary ---
Discharge Summary Date of Service Jan 29, 2017. Discharge Summary Admission Date: Jan 24, 2017 at 23:38 Discharge Date: Jan 28, 2017 Discharge Disposition: Home Principal Diagnosis: Abdominal Pain s/p Lap Shanika on 01/20 in [facility],Chest pain-no ACS Secondary Diagnoses/Problems: Please See H&P and Hospital Progress note Consultations: Surgery and Cardiology Medication Reconciliation Continued Medications: Acetaminophen (Tylenol Extra Strength) 500 Mg Tab 500 MG PO Q4 PRN for Pain Baclofen (Baclofen) 10 Mg Tab 5 MG PO BID Buspirone Hcl (Buspirone Hcl) 10 Mg Tab 10 MG PO BID, TAB Calcium Citrate-Vitamin D (Citracal + D3 Maximum) 1 Tab Tab 1 TAB PO DAILY Cholecalciferol (D 2000) 2,000 Unit Tab 2000 UNITS PO DAILY Cyanocobalamin (Cyanocobalamin) 1,000 Mcg/Ml Inj 1000 MCG IM [id number] Diphenhydramine-Acetaminophen (Tylenol Pm) 1 Tab Tab 1 TAB PO HS PRN for Insomnia Omeprazole (Prilosec) 20 Mg Cap 20 MG PO DAILY Ondansetron Hcl (Zofran) 4 Mg Tab 4 MG PO Q6 PRN for Nausea, TAB Oxycodone Oral Soln (Roxicodone Oral Soln) 5 Mg/5 Ml Soln 5-10 ML PO Q4H PRN for Pain Pediatric Multiple Vitamins W/ (Flintstones Plus Iron) 1 Chw Chw 2 TABS PO QAM Pregabalin (Lyrica) 100 Mg Cap 100 MG PO QD@1200 Pregabalin (Lyrica) 100 Mg Cap 200 MG PO QAM Sucralfate (Sucralfate) 1 Gm Tab 1 GM PO QID TAKE THIS MEDICATION 30 MINUTES BEFORE MEALS AND BEDTIME Venlafaxine Hcl (Effexor) 100 Mg Tab 100 MG PO BID Admission Information HPI (per Admitting provider): 56 YO female followed by Dr. Ceron. History of gastric bypass, hiatal hernia, cholelithiasis, and other problems noted below. Laparoscopic cholecystectomy and paraesophageal hernia repair performed at [facility] by Dr. Shay on 01/20/17. Procedures were uncomplicated. Discharged to home on 01/21/17. Experiencing upper abdominal pain, nausea, and retching since her discharge. No emesis. Moved bowels this morning- no diarrhea, melena, hematochezia. Intermittent sharp left parasternal chest pain, nonradiating, no associated SOB. Occasional mild cough. Experiencing some chills and sweats, but no apparent fever. Taking oxycodone for pain at home without significant relief. Came to ED for evaluation. Received IV morphine with some relief of her abdominal pain. Past Medical/Surgical History Chronic and Resolved Medical Problems: (1) Anxiety Status: Chronic (2) Congestive heart failure, unspecified Permanent Comment: echo 03/25/13-grade 1 diastolic dysfunction with mild concentric LVH Status: Chronic (3) Depression Status: Chronic (4) Dyslipidemia Status: Chronic (5) Fibromyalgia Status: Chronic (6) GERD (gastroesophageal reflux disease) Status: Chronic (7) Organic sleep disorder Status: Chronic (8) Osteoarthritis Status: Chronic (9) Restless legs Status: Chronic Surgical Problems: (1) Gastric bypass status for obesity Status: Chronic (2) H/O arthroscopic knee surgery Permanent Comment: R knee; 1998 Status: Chronic (3) Hx of appendectomy Status: Chronic (4) S/P bronchoscopy Status: Chronic (5) S/p EGD Permanent Comment: 11/24/2014- small ulcers at anastamosis, brandy removed/ [facility] Status: Chronic (6) Status post cholecystectomy Permanent Comment: laparoscopic cholecystectomy Dr. hSay [facility] [place]17 Status: Chronic (7) Status post repair of paraesophageal diaphragmatic hernia Permanent Comment: Dr. Shay [facility] [place] 01/20/17 Status: Chronic . Family History Unobtainable family history due to adoption Social History Smoking Status: Former Smoker Alcohol Use: none Drug Use: none, marijuana Marital Status: Housing status: lives with significant other Occupational Status: unemployed Immunizations History of Influenza Vaccine: N/A History of Tetanus Vaccine?: No Tetanus Immunization Date: Aug 09, 2004 History of Pneumococcal: Yes History of Hepatitis B Vaccine: No Multi-Drug Resistant Organisms History of MDRO: No Allergies Coded Allergies: Codeine (Verified Allergy, Intermediate, DIARRHEA/RASH,TOLERATES PERCOCET , 11/26/16) TOLERATES PERCOCET NSAIDs (Verified Allergy, Unknown, UNKNOWN, 11/26/16) Clonazepam (Verified Adverse Reaction, Intermediate, "PASS OUT", 12/03/16) Hydrocodone (Verified Adverse Reaction, Intermediate, OVER SEDATION, ) Hydromorphone (Verified Adverse Reaction, Intermediate, weakness,sweating , 12/03/16) Sulfamethoxazole w/Trimethoprim (Verified Adverse Reaction, Intermediate, DELIRIUM, 11/26/16) pt devoped invontary muscle spasm ; Aspirin (Verified Adverse Reaction, Mild, STOMACH IRRITATION, 12/03/16) Cephalexin (Verified Adverse Reaction, Mild, GI SYMPTOMS, 12/03/16) UPSET STOMACH Home Medications Scheduled Baclofen (Baclofen), 5 MG PO BID Buspirone Hcl (Buspirone Hcl), 10 MG PO BID Calcium Citrate-Vitamin D (Citracal + D3 Maximum), 1 TAB PO DAILY Cholecalciferol (D 2000), 2,000 UNITS PO DAILY Cyanocobalamin (Cyanocobalamin), 1,000 MCG IM [id number] Omeprazole (Prilosec), 20 MG PO DAILY Pediatric Multiple Vitamins W/ (Flintstones Plus Iron), 2 TABS PO QAM Pregabalin (Lyrica), 100 MG PO QD@1200 Pregabalin (Lyrica), 200 MG PO QAM Sucralfate (Sucralfate), 1 GM PO QID Venlafaxine Hcl (Effexor), 100 MG PO BID Scheduled PRN Acetaminophen (Tylenol Extra Strength), 500 MG PO Q4 PRN for Pain Diphenhydramine-Acetaminophen (Tylenol Pm), 1 TAB PO HS PRN for Insomnia Ondansetron Hcl (Zofran), 4 MG PO Q6 PRN for Nausea Oxycodone Oral Soln (Roxicodone Oral Soln), 5-10 ML PO Q4H PRN for Pain Review of Systems Constitutional: + chills, + sweats, No fever Eyes: No worsening of vision, No diplopia ENT: No nasal symptoms, No sore throat Respiratory: + cough (mild), No shortness of breath Cardiovascular: + chest pain (as noted in HPI), + edema (chronic lymphedema) Abdomen: + problem reported (as noted in HPI) Musculoskeletal: + muscle pain (fibromyalgia), No joint pain Genitourinary - Female: No dysuria, No hematuria Neurologic: + problem reported (no headaches) Psychiatric: + depression symptoms, + anxiety Endocrine: No excessive thirst, No excessive urination Hematologic / Lymphatic: + abnormal bleeding/bruising Integumentary: No rash, No new/changing skin lesions Physical Ex - H&P Physical Exam Vital Signs Date Time Temp Pulse Resp B/P (MAP) Pulse Ox O2 Delivery O2 Flow Rate FiO2 01/24/17 23:02 81 21 167/98 96 Room Air 01/24/17 22:34 92 21 146/94 96 Room Air 01/24/17 22:16 92 01/24/17 21:19 76 17 175/113 99 Room Air 01/24/17 20:37 77 23 174/104 98 Room Air 01/24/17 18:47 85 23 161/100 97 Room Air 01/24/17 18:20 77 16 129/88 98 Room Air 01/24/17 18:03 74 01/24/17 17:19 36.7 75 16 146/91 97 Room Air General Appearance: + moderate distress Head: normocephalic, atraumatic Eyes: normal inspection, PERRL, EOMI, sclerae normal (conjunctivae pink) ENT: hearing grossly normal, pharynx normal Neck: supple, no adenopathy, thyroid normal, no JVD, trachea midline Respiratory/Chest: lungs clear, no respiratory distress, no accessory muscle use Cardiovascular: regular rate, rhythm, no gallop, no JVD, + systolic murmur (II/ sys murmur at base), + pertinent finding (lymphedema lower extremities) Abdomen/GI: + pertinent finding (quiet bowel sounds; slightly distended, soft, upper abdominal tenderness; upper abdominal ecchymoses; upper abdominal incisions without erytema or drainage; no palpable hepatomegaly or splenomegaly) Extremities/Musculoskelatal: no calf tenderness, normal capillary refill, + swelling (lymphedema) Neurologic/Psych: fiber technician II-XII nml as tested (PERRL, EOMI; no facial palsy; no dysarthria), no motor/sensory deficits (motor strength upper and lower extremities grossly intact), alert, normal reflexes (patellar DTR's 1/2 bilat; plantar reflexes downgoing), oriented x 3 Skin: normal color, warm/dry, no rash Lymphatic: no adenopathy (cervical) Diagnostics - H&P Diagnostics Laboratory Results Results Past 24 Hours Test 01/24/17 18:07 01/24/17 20:35 Range/Units White Blood Count 8.27 4.8-10.8 K/uL Red Blood Count 4.01 4.2-5.4 M/uL Hemoglobin 12.6 12.0-16.0 g/dL Hematocrit 38.1 37-47 % Mean Corpuscular Volume 95.0 80-100 fL Mean Corpuscular Hemoglobin 31.4 25-34 pg Mean Corpuscular Hemoglobin Concent 33.1 32-36 g/dl Platelet Count 188 130-400 K/uL Mean Platelet Volume 10.8 7.4-10.4 fL Neutrophils (%) (Auto) 78.6 % Lymphocytes (%) (Auto) 11.0 % Monocytes (%) (Auto) 9.4 % Eosinophils (%) (Auto) 0.6 % Basophils (%) (Auto) 0.2 % Neutrophils # (Auto) 6.49 1.4-6.5 K/uL Lymphocytes # (Auto) 0.91 1.2-3.4 K/uL Monocytes # (Auto) 0.78 0.11-0.59 K/uL Eosinophils # (Auto) 0.05 0-0.5 K/uL Basophils # (Auto) 0.02 0-0.2 K/uL RDW Standard Deviation 52.1 36.4-46.3 fL RDW Coefficient of Variation 15.0 11.5-14.5 % Immature Granulocyte % (Auto) 0.2 % Immature Granulocyte # (Auto) 0.02 0.00-0.02 K/uL Sodium Level 141 136-145 mmol/L Potassium Level 3.4 3.5-5.1 mmol/L Chloride Level 105 98-107 mmol/L Carbon Dioxide Level 30 21-32 mmol/L Anion Gap 6.0 3-11 mmol/L Blood Urea Nitrogen 8 7-18 mg/dl Creatinine 0.63 0.60-1.20 mg/dl Est Creatinine Clear Calc Drug Dose 102.5 ml/min Estimated GFR () 116.2 Estimated GFR (Non- 100.3 BUN/Creatinine Ratio 13.0 10-20 Random Glucose 109 70-99 mg/dl Lactic Acid Level 0.8 0.4-2.0 mmol/L Calcium Level 8.7 8.5-10.1 mg/dl Total Bilirubin 0.5 0.2-1 mg/dl Aspartate Amino Transf (AST/SGOT) 25 15-37 U/L Alanine Aminotransferase (ALT/SGPT) 68 12-78 U/L Alkaline Phosphatase 194 45-117 U/L Troponin I 0.051 0-0.045 ng/ml Total Protein 6.7 6.4-8.2 gm/dl Albumin 2.9 3.4-5.0 gm/dl Globulin 3.8 2.5-4.0 gm/dl Albumin/Globulin Ratio 0.8 0.9-2 Lipase 47 73-393 U/L Urine Color DK YELLOW Urine Appearance CLEAR CLEAR Urine pH 6.0 4.5-7.5 Urine Specific [place] 1.024 1.000-1.030 Urine Protein TRACE NEG Urine Glucose (UA) NEG NEG Urine Ketones NEG NEG Urine Occult Blood NEG NEG Urine Nitrite NEG NEG Urine Bilirubin NEG NEG Urine Urobilinogen NEG NEG Urine Leukocyte Esterase NEG NEG Urine WBC (Auto) 1-5 0-5 /hpf Urine RBC (Auto) 0-4 0-4 /hpf Urine Hyaline Casts (Auto) 1-5 0-5 /lpf Urine Epithelial Cells (Auto) 10-20 0-5 /lpf Urine Bacteria (Auto) NEG NEG Diagnostic Radiology ABD/PELVIS IV AND ORAL CONT FINDINGS: Lung bases are clear. Subcutaneous emphysema in the lateral chest wall regions bilaterally. Trace amount of perihepatic ascites possibly postoperative. There has been a cholecystectomy. Moderate prominence of biliary ductal system compared to the prior study. The common bile duct currently measures 11 mm. Mild intrahepatic biliary ductal distention. Findings of prior gastric bypass procedure. Small amount of perisplenic ascites. Trace ascites within the right flank possibly postoperative. Moderate ascites within the pelvis. Mild fecal impaction. No evidence of bowel obstructive change. IMPRESSION: 1. Scattered subcutaneous air/emphysematous change within the chest wall regions laterally. 2. Small amount of abdominal and to a somewhat greater extent pelvic ascites. 3. Mild development of moderate biliary ductal distention compared to the prior study status post cholecystectomy. 5. Operative changes consistent with a known gastric bypass type procedure. 6. Nonobstructive bowel pattern. 7. Mild fecal impaction. The above report was generated using voice recognition software. It may contain grammatical, syntax or spelling errors. Electronically signed by: Tello Warren M.D. 01/24/2017 10:05 PM Dictated Date/Time: 01/24/2017 9:59 PM . EKG EKG performed at 17:59 reviewed and demonstrated NSR at 75 / minute, no acute ST or T-wave changes. . Impression - H&P Impression Assessment and Plan ELEVATED TROPONIN Serum troponin slightly elevated. No acute EKG changes. Patient primarily experiencing epigastric pain few days postoperatively. Upon further questioning, she is having some intermittent sharp left parasternal pain. Doubt acute coronary syndrome. Check serial cardiac markers and EKG's. Doubt pulmonary embolism, but reconsider if symptoms, oxygenation, vitals signs are concerning. ABDOMINAL PAIN Upper abdominal pain 4 days after laparoscopic cholecystectomy and paraesophageal hernia repair. CT demonstrates expected postsurgical changes. Continue oxycodone. IV morphine for severe pain. Full liquid diet x 3 more days per postop instructions. GERD Continue PPI. FIBROMYALGIA Continue pregabalin. DEPRESSION Continue usual meds. VTE PROPHYLAXIS Moderate risk- chronic lymphedema, postop status. Has significant ecchymoses of upper abdomen, so will use SCD's rather than anticoagulants. Ambulate as able. RESUSCITATION STATUS Full code. DISPOSITION Observation status on Telemetry Unit. Expected discharge to home. Internal Medicine follow-up with Dr. Ceron. Surgical follow-up with Dr. Shay. . VTE Prophylaxis Risk Level: Moderate Given or contraindicated: SCD's . Physical Exam (per Admitting): General Appearance: + moderate distress Head: normocephalic, atraumatic Eyes: normal inspection, PERRL, EOMI, sclerae normal (conjunctivae pink) ENT: hearing grossly normal, pharynx normal Neck: supple, no adenopathy, thyroid normal, no JVD, trachea midline Respiratory/Chest: lungs clear, no respiratory distress, no accessory muscle use Cardiovascular: regular rate, rhythm, no gallop, no JVD, + systolic murmur ( II/ sys murmur at base), + pertinent finding (lymphedema lower extremities) Abdomen/GI: + pertinent finding (quiet bowel sounds; slightly distended, soft, upper abdominal tenderness; upper abdominal ecchymoses; upper abdominal incisions without erytema or drainage; no palpable hepatomegaly or splenomegaly) Extremities/Musculoskelatal: no calf tenderness, normal capillary refill, + swelling (lymphedema) Neurologic/Psych: fiber technician II-XII nml as tested (PERRL, EOMI; no facial palsy; no dysarthria), no motor/sensory deficits (motor strength upper and lower extremities grossly intact), alert, normal reflexes (patellar DTR's 1/2 bilat; plantar reflexes downgoing), oriented x 3 Skin: normal color, warm/dry, no rash Lymphatic: no adenopathy (cervical) Hospital Course ABDOMINAL PAIN Upper abdominal pain 4 days after laparoscopic cholecystectomy and paraesophageal hernia repair. CT demonstrates expected postsurgical changes ,no fluid collection suggestive of abscess and no sepsis NO obstruction on CT IV fluid ,Pain medication Continue oxycodone. Full liquid diet x 3 more days per postop instructions. If the condition does not improve with conservative management will get Surgery involved /transfer to [facility] Clinically not any better with increased abdominale distension but no Nausea and or vomiting Surgery consulted for further evaluation -appreciate input No acute surgery recommended Diet advanced and pain medications adjusted Tolerating regular diet and moving bowel Ambulating without much difficulty Will discharge today ELEVATED TROPONIN Serum troponin slightly elevated and were creeping up to 0.5 No acute EKG changes. Patient primarily experiencing epigastric pain few days postoperatively but no Chest pain Doubt acute coronary syndrome. Cardiology consulted -bryan acosta Will get CTA to r/o Pulmonary embolism-no Pulmonary embolism Cardiology signed off received 40 mg of Lasix this AM GERD Continue PPI. FIBROMYALGIA Continue pregabalin. Has been on Narcotics as well and requiring a lot to control pain Will not try to increase any more pain medications Continue Oral pain med DEPRESSION Continue usual meds. VTE PROPHYLAXIS Moderate risk- chronic lymphedema, postop status. Has significant ecchymoses of upper abdomen, so will use SCD's rather than anticoagulants. Ambulate as able. RESUSCITATION STATUS Full code. DISPOSITION Internal Medicine follow-up with Dr. Ceron. Surgical follow-up with Dr. Shay. Discussed with the family members PT/OT requested Social service for discharge planning Discharge home today . Total time spent on discharge = 35 minutes This includes examination of the patient, discharge planning, medication reconciliation, and communication with other providers. Discharge Instructions Date of Service Jan 28, 2017. Admission Reason for Admission: Ab Pain, Elevated Troponin Discharge Discharge Diagnosis / Problem: Abdomnial Pain s/p Lap Shanika on 01/20 in [facility] ,Chest pain-no ACS Discharge Goals Goal(s): Prevent Disease Progression Activity Recommendations Activity Limitations: resume your previous activity . Instructions / Follow-Up Instructions / Follow-Up Dr Briceno (Dr Dougherty;man is not available) on 01/31/17 at 10:05 AM.Please keep appointment with your Surgeon Current Hospital Diet Patient's current hospital diet: AHA Diet (Heart Healthy) Discharge Diet Recommended Diet: AHA Diet (Heart Healthy) Pending Studies Studies pending at discharge: no Laboratory Results Lipid Panel Test 01/25/17 07:34 Range/Units Triglycerides Level 55 0-150 mg/dl Cholesterol Level 134 0-200 mg/dl HDL Cholesterol 84 mg/dl Cholesterol/HDL Ratio 1.6 LDL Cholesterol, Calculated 39 mg/dl Medical Emergencies . Who to Call and When: Medical Emergencies: If at any time you feel your situation is an emergency, please call 911 immediately. . Non-Emergent Contact Non-Emergency issues call your: Primary Care Provider . Past History Medical & Surgical History: (1) Congestive heart failure, unspecified (2) Depression (3) Fibromyalgia (4) Anxiety (5) Organic sleep disorder (6) Abdominal pain (7) Elevated troponin (8) Gastric bypass status for obesity (9) Hx of appendectomy (10) H/O arthroscopic knee surgery (11) S/P bronchoscopy (12) S/p EGD (13) Status post cholecystectomy (14) Status post repair of paraesophageal diaphragmatic hernia . "Provider Documentation" section prepared by Ailyn Cui. . VTE Core Measure Inpt VTE Proph given/why not?: SCD's <Electronically signed by Ailyn Cui M.D.> Additional Copies To Kvng Ceron D.O.
== END 2017-01-28 14:18 | disposition home or self-care (01) ==
LOC: EDBD 17:14 → C.EDC 17:15 → C.MED 23:38 → ENRESERV 23:43
PROVIDERS: ADMIT Hospitalist; ATTEND Internal Medicine
DX: R10.10 Upper abdominal pain, unspecified (principal); R11.0 Nausea; R79.89 Other specified abnormal findings of blood chemistry; F41.9 Anxiety disorder, unspecified; F32.9 Major depressive disorder, single episode, unspecified; E78.5 Hyperlipidemia, unspecified; K21.9 Gastro-esophageal reflux disease without esophagitis; Z79.899 Other long term (current) drug therapy; M19.90 Unspecified osteoarthritis, unspecified site; Z98.84 Bariatric surgery status; Z90.89 Acquired absence of other organs; Z90.49 Acquired absence of other specified parts of digestive tract; Z87.891 Personal history of nicotine dependence; E66.01 Morbid (severe) obesity due to excess calories; I50.9 Heart failure, unspecified

== ENCOUNTER 2017-02-13 03:00 | Emergency (ER) | payer OTHER ==
[~2017-02-13 03:00] MED LIST changes: +ACET-1138 PO; -ALBU18002 INH; -BACL1TAB PO; +BUSP-8 PO; +CHOL1TAB76 PO; -EFFEXOR PO; -HYDR25CA PO; +LRS10 PO; +LYR100 PO; +OMEP20CA9 PO; +ONDA4TAB65 PO; +OXYC10SO PO; +PEDICHW44 PO; +SUCR1TAB PO; -SUCR5SUS PO; +VENL100T2 PO
[2017-02-13 03:07] VITALS: TEMP 36.6
--- NOTE | 2017-02-13 03:29 | EMERGENCY ROOM VISIT NOTE ---
History Report prepared by [place]: Jerri Lizama Under the Supervision of: Dr. Joanna Arias D.O. First contact with patient: 03:14 Chief Complaint: FALL Stated Complaint: FALL History of Present Illness The patient is a 56 year old female who presents to the Emergency Room with complaints of a sudden fall occurring shortly prior to arrival. Per her family, the patient fell several times today, and hit her head on her most recent fall. Per her family, the patient urinated in bed tonight. Per her family, the patient fell asleep at the table during dinner tonight. Her family states that she did complain of a headache around 12 today. Per her family, the patient has not had a change in medication, and that she took her usual medications today. Pt well known the ER, here frequently often with complaints related to noncompliance with medications or side effects of medications. Source of History: family Onset: shortly prior to arrival Position: other (global) Quality: other (fall) Timing: other (sudden) Associated Symptoms: + headache Review of Systems See HPI for pertinent positives & negatives. A total of 10 systems reviewed and were otherwise negative. Past Medical & Surgical Medical Problems: (1) Anxiety (2) Congestive heart failure, unspecified (3) Depression (4) Dyslipidemia (5) Fibromyalgia (6) GERD (gastroesophageal reflux disease) (7) Organic sleep disorder (8) Osteoarthritis (9) Restless legs Surgical Problems: (1) Gastric bypass status for obesity (2) H/O arthroscopic knee surgery (3) Hx of appendectomy (4) S/P bronchoscopy (5) S/p EGD (6) Status post cholecystectomy (7) Status post repair of paraesophageal diaphragmatic hernia Family History Unobtainable family history due to adoption Social History Smoking Status: Former Smoker Alcohol Use: none Drug Use: none, marijuana Marital Status: Housing Status: lives with significant other Occupation Status: unemployed Current/Historical Medications Scheduled Baclofen (Baclofen), 5 MG PO BID Buspirone Hcl (Buspirone Hcl), 10 MG PO BID Calcium Citrate-Vitamin D (Citracal + D3 Maximum), 1 TAB PO DAILY Cholecalciferol (D 2000), 2,000 UNITS PO DAILY Cyanocobalamin (Cyanocobalamin), 1,000 MCG IM [id number] Omeprazole (Prilosec), 20 MG PO DAILY Pediatric Multiple Vitamins W/ (Flintstones Plus Iron), 2 TABS PO QAM Pregabalin (Lyrica), 100 MG PO QD@1200 Pregabalin (Lyrica), 200 MG PO QAM Sucralfate (Sucralfate), 1 GM PO QID Venlafaxine Hcl (Effexor), 100 MG PO BID Scheduled PRN Acetaminophen (Tylenol Extra Strength), 500 MG PO Q4 PRN for Pain Diphenhydramine-Acetaminophen (Tylenol Pm), 1 TAB PO HS PRN for Insomnia Ondansetron Hcl (Zofran), 4 MG PO Q6 PRN for Nausea Oxycodone Oral Soln (Roxicodone Oral Soln), 5-10 ML PO Q4H PRN for Pain Allergies Coded Allergies: Codeine (Verified Allergy, Intermediate, DIARRHEA/RASH,TOLERATES PERCOCET , 02/13/17) TOLERATES PERCOCET NSAIDs (Verified Allergy, Unknown, UNKNOWN, 02/13/17) Clonazepam (Verified Adverse Reaction, Intermediate, "PASS OUT", 02/13/17) Hydrocodone (Verified Adverse Reaction, Intermediate, OVER SEDATION, 02/13) Hydromorphone (Verified Adverse Reaction, Intermediate, weakness,sweating , 02/13/17) Sulfamethoxazole w/Trimethoprim (Verified Adverse Reaction, Intermediate, DELIRIUM, 02/13/17) pt devoped invontary muscle spasm ; Aspirin (Verified Adverse Reaction, Mild, STOMACH IRRITATION, 02/13/17) Cephalexin (Verified Adverse Reaction, Mild, GI SYMPTOMS, 02/13/17) UPSET STOMACH Physical Exam Vital Signs Date Time Temp Pulse Resp B/P (MAP) Pulse Ox O2 Delivery O2 Flow Rate FiO2 02/13/17 08:12 49 18 109/67 99 Room Air 02/13/17 07:38 47 02/13/17 07:26 49 14 138/83 99 Room Air 02/13/17 05:15 52 13 133/76 98 02/13/17 05:00 125/80 02/13/17 04:34 51 16 131/80 99 Room Air 02/13/17 04:31 131/80 02/13/17 04:30 52 11 93 02/13/17 04:20 106/68 02/13/17 04:00 106/68 02/13/17 03:45 52 11 98 02/13/17 03:09 55 02/13/17 03:07 36.6 66 14 148/89 98 Room Air 02/13/17 03:06 148/89 Physical Exam GENERAL: somnolent, well appearing, well nourished, no distress, non-toxic EYE EXAM: normal conjunctiva, PERRL but sluggish, and EOM's grossly intact OROPHARYNX: no exudate, no erythema, lips, buccal mucosa, and tongue normal and mucous membranes are moist NECK: supple, no nuchal rigidity, no adenopathy, non-tender LUNGS: Decreased sounds but not wheezes, rhonchi, or rales CHEST: No crepitus, no ecchymosis HEART: no murmurs, S1 normal and S2 normal ABDOMEN: abdomen soft, non-tender, normo-active bowel sounds, no masses, no rebound or guarding. No ecchymosis. BACK: Back is symmetrical on inspection and there is no deformity, no midline tenderness, no CVA tenderness. SKIN: no rashes and no bruising UPPER EXTREMITIES: upper extremities are grossly normal. LOWER EXTREMITIES: No pitting edema. Pelvis is stable. NEURO EXAM: Patient is very somnolent. Arouses to pain and loud voice. Medical Decision & Procedures ER Provider Diagnostic Interpretation: Chest 1 view X-ray: No effusion, no cardiomegaly, patient rotated, slight increased modularity compared to prior. No focal consolidation. No pneumothorax. Pelvis X-ray: No fracture or dislocation. Large stool ball in rectum. Radiology results have been interpreted by [facility]. CT HEAD: Comparison: CT dated 10/09/2016. No acute intracranial hemorrhage, skull fracture, or other acute intracranial abnormality. CT C SPINE: No evidence of acute fracture or traumatic subluxation of the cervical spine. Mild degenerative changes of the cervical spine. Laboratory Results Test 02/13/17 00:00 02/13/17 06:25 02/13/17 07:25 02/13/17 07:32 Urine Color YELLOW Urine Appearance CLEAR (CLEAR) Urine pH 6.5 (4.5-7.5) Urine Specific [place] 1.009 (1.000-1.030) Urine Protein NEG (NEG) Urine Glucose (UA) NEG (NEG) Urine Ketones NEG (NEG) Urine Occult Blood NEG (NEG) Urine Nitrite NEG (NEG) Urine Bilirubin NEG (NEG) Urine Urobilinogen NEG (NEG) Urine Leukocyte Esterase NEG (NEG) Urine Opiates Screen NEG (NEG) Urine Methadone, Qualitative NEG (NEG) Urine Barbiturates NEG (NEG) Urine Phencyclidine (PCP) Level NEG (NEG) Ur Amphetamine/Methamphetamine NEG (NEG) MDMA (Ecstasy) Screen NEG (NEG) Urine Benzodiazepines Screen NEG (NEG) Urine Cocaine Metabolite NEG (NEG) Urine Marijuana (THC) NEG (NEG) Bedside Glucose 77 mg/dl (70-90) Ethyl Alcohol mg/dL < 3.0 mg/dl (0-3) Bedside Hemoglobin 13.6 g/dl (12.0-16.0) Bedside Hematocrit 40 % (37-47) Bedside Sodium 146 mEq/L (135-144) Bedside Potassium 4.4 mEq/L (3.3-5.0) Bedside Chloride 112 mEq/L (101-112) Bedside Total CO2 28 mEq/l (24-31) Anion Gap 12.0 mmol/L (16-25) Bedside Blood Urea Nitrogen 8 mg/dl (7-18) Bedside Creatinine 0.8 mg/dl (0.6-1.3) Bedside Glucose (other) 83 mg/dl (70-99) Bedside Ionized Calcium (Sri) 1.28 mmol/l (1.12-1.32) Medications Administered Medications (Trade) Dose Ordered Sig/Gabriel Route Start Time Stop Time Status Last Admin Dose Admin Naloxone HCl (Narcan Inj) 0.4 mg NOW STAT IM 02/13/17 06:12 02/13/17 06:13 DC 02/13/17 06:12 0.4 MG ECG Indication: weakness Rate (beats per minute): 56 Rhythm: sinus bradycardia Findings: no acute ischemic change, no ectopy, other (normal axis, normal intervals) ED Course 0322: The patient was evaluated in room B7. A complete history and physical exam was performed. 0610: The patient still opens eyes to painful stimuli. 0612: Ordered Narcan Inj 0.4 mg IM. 0720: I checked on the patient. Now more awake. 0805: Pt now awake, alert. Discussed with her results. She states she took her evening medications and then after than felt sleepy/lightheaded and fell. Medical Decision Differential diagnosis: Etiologies such as fracture, dislocation, intra-abdominal, pneumothorax, intrathoracic , intracranial, neurologic, as well as other traumatic pathologies were entertained. Pt slowly more arousable here, complaining of chronic pain. Admitted to taking evening medication early and feeling dizzy/sleepy. Discussed appropriate use of her medications, potential side effects of medications. Doubt additional organic pathology, doubt occult infection, doubt occult traumatic injury. Pt not anticoagulated, ground level fall this evening. Pt with chronic pain in various locations. VS stable throughout. Pt observed several hours as a precaution. Medication Reconcilliation Current Medication List: was personally reviewed by me Blood Pressure Screening Patient's blood pressure: Normal blood pressure Impression Primary Impression: Fall Additional Impressions: Anxiety Noncompliance with medication regimen Scribe Attestation The scribe's documentation has been prepared under my direction and personally reviewed by me in its entirety. I confirm that the note above accurately reflects all work, treatment, procedures, and medical decision making performed by me. Departure Information Dispostion Home / Self-Care Referrals Kvng Ceron, D.O. (PCP) Patient Instructions My [facility] Additional Instructions Please take your medications only as prescribed. Please call and follow-up with your family doctor. Please rest today. Eat and drink normally. If you have any new or concerning symptoms, please return to the emergency room. Problem Qualifiers Primary Impression: Fall Encounter type: initial encounter Qualified Codes: W19.XXXA - Unspecified fall, initial encounter
[2017-02-13] MEDS ORDERED: NALOXONE HCL 0.4 MG/1 ML VIAL/CARP IM STA (06:12)
--- NOTE | 2017-02-13 06:41 | DIAGNOSTIC IMAGING REPORT ---
CT HEAD WITHOUT CONTRAST (CT) CLINICAL HISTORY: Head pain status post trauma COMPARISON STUDY: 10/09/2016 TECHNIQUE: Axial CT of the brain is performed from the vertex to the skull base. IV contrast was not administered for this examination. A dose lowering technique was utilized adhering to the principles of ALARA. CT DOSE: 1062.64 mGy.cm FINDINGS: No intra or extra-axial mass lesions are visualized. There is no CT evidence of acute cortical infarction. There is no evidence of midline shift. There is no acute hemorrhage. No calvarial fractures are visualized. There are minimal white matter hypodensities likely on a small vessel basis. There is no evidence of pathologic ventricular dilatation. There is no evidence of acute sinusitis IMPRESSION: No acute intracranial findings Electronically signed by: Zachery Castro M.D. 02/13/2017 6:40 AM Dictated Date/Time: 02/13/2017 6:39 AM
--- NOTE | 2017-02-13 06:46 | DIAGNOSTIC IMAGING REPORT ---
CHEST ONE VIEW PORTABLE CLINICAL HISTORY: Chest pain status post trauma COMPARISON STUDY: 01/25/2017 FINDINGS: The heart is mildly enlarged. There is mild azygous distention. There is slight prominence of the upper lobe pulmonary vessels which may in part be secondary to supine nature the study. There is no focal pulmonary consolidation. No pleural effusions are identified on the supine study. No pneumothorax identified on the supine study.[ IMPRESSION: Portable supine study. No evidence of focal pulmonary consolidation. No pneumothorax is visualized on this supine examination. Electronically signed by: Zachery Castro M.D. 02/13/2017 6:44 AM Dictated Date/Time: 02/13/2017 6:43 AM
--- NOTE | 2017-02-13 06:46 | DIAGNOSTIC IMAGING REPORT ---
PELVIS 1 OR 2 VIEW ROUTINE CLINICAL HISTORY: fall pelvic pain COMPARISON STUDY: No previous studies for comparison. FINDINGS: No fractures are visualized. There is no SI joint diastases. There is no symphysis diastases. IMPRESSION: No fractures identified. Electronically signed by: Zachery Castro M.D. 02/13/2017 6:45 AM Dictated Date/Time: 02/13/2017 6:45 AM
--- NOTE | 2017-02-13 07:18 | DIAGNOSTIC IMAGING REPORT ---
CERVICAL SPINE CT CT DOSE: HISTORY: Neck pain. fall TECHNIQUE: Multiaxial CT images of the cervical spine were performed and reformatted in the sagittal and coronal plane without the use of contrast. A dose lowering technique was utilized adhering to the principles of ALARA. COMPARISON: None. FINDINGS: No fractures. No subluxation. Prevertebral soft tissues and the C1-C2 interval are intact. No pneumothorax. Mild degenerative changes. IMPRESSION: No fractures within the cervical spine. Electronically signed by: Elmer Quan M.D. 02/13/2017 7:17 AM Dictated Date/Time: 02/13/2017 7:13 AM
[2017-02-13 07:25] LABS: URINE APPEARANCE CLEAR (CLEAR); URINE BILIRUBIN NEG (NEG); URINE COLOR YELLOW; URINE NITRITE NEG (NEG); URINE PH 6.5 (4.5-7.5); URINE SPECIFIC GRAVITY 1.009 (1.000-1.030); UROBILINOGEN NEG (NEG)
[2017-02-13 07:29] LABS: MANUAL MICROSCOPIC REQUIRED? NO; REVIEW REQ? NO
[2017-02-13 07:45] LABS: BENZODIAZEPINE, URINE NEG (NEG); COCAINE,URINE NEG (NEG); PHENCYCLIDINE, URINE NEG (NEG)
[2017-02-13 07:45] LABS: ISTAT CREATININE 0.8 mg/dl (0.6-1.3); ISTAT HEMOGLOBIN 13.6 g/dl (12.0-16.0); ISTAT IONIZED CALCIUM 1.28 mmol/l (1.12-1.32)
[2017-02-13 08:12] VITALS: BP 109/67; PULSE 49; O2SAT 99
== END 2017-02-13 08:45 | disposition home or self-care (01) ==
LOC: EDBD 03:00 → C.EDB 03:02
DX: F41.9 Anxiety disorder, unspecified (principal); W19.XXXA Unspecified fall, initial encounter; Z91.19 Patient's noncompliance with other medical treatment and regimen; E78.5 Hyperlipidemia, unspecified; K21.9 Gastro-esophageal reflux disease without esophagitis; F32.9 Major depressive disorder, single episode, unspecified; I50.9 Heart failure, unspecified; M19.90 Unspecified osteoarthritis, unspecified site; G25.81 Restless legs syndrome; Z98.84 Bariatric surgery status; Z90.49 Acquired absence of other specified parts of digestive tract; Z98.890 Other specified postprocedural states; Z87.891 Personal history of nicotine dependence; Z79.899 Other long term (current) drug therapy; Z88.2 Allergy status to sulfonamides; Z88.5 Allergy status to narcotic agent; Z88.6 Allergy status to analgesic agent; Z88.8 Allergy status to other drugs, medicaments and biological substances

== ENCOUNTER 2017-07-18 15:36 | Inpatient (IN) | payer OTHER ==
[~2017-07-18] VITALS: Ht 160 cm; Wt 73.5 kg
[2017-07-18] MEDS ORDERED: SODIUM CHLORIDE 0.9% 1000ML 1,000 ML IV STA ×2 (16:09→18:08)
--- NOTE | 2017-07-18 16:19 | EMERGENCY ROOM VISIT NOTE ---
History Report prepared by [place]: Minh Lyons Under the Supervision of: Dr. Joanna Arias D.O. First contact with patient: 15:49 Stated Complaint: CONFUSION, HALLUCINATIONS History of Present Illness The patient is a 57 year old female who presents to the Emergency Room with complaints of constant confusion and unresponsiveness starting prior to arrival. The patient's family states that the patient was dry heaving earlier today, and while in the car she stretched her legs and then went unconscious. The patient's family was at their PCP this morning, and then the doctor came out to evaluate the patient, and they called EMS. The nursing staff notes that the patient was combative when EMS got there, so she was given intranasal versed. The patient's family states that the patient did not take any drugs. They states she had no complaints prior to the events this afternoon. The patient was recently put on trazodone and baclofen. History is limited secondary to unresponsiveness. On review of EMR, patient here multiple times previously with symptoms and complaints related to substance abuse. Source of History: family, nursing staff History Limited By: other (unresponsiveness) Onset: prior to arrival Position: other (global) Quality: other (unresponsiveness) Timing: constant Review of Systems HPI is limited secondary to unresponsiveness. Past Medical & Surgical Medical Problems: (1) Anxiety (2) Congestive heart failure, unspecified (3) Depression (4) Dyslipidemia (5) Fibromyalgia (6) GERD (gastroesophageal reflux disease) (7) Hypotension (8) Organic sleep disorder (9) Osteoarthritis (10) Restless legs Surgical Problems: (1) Gastric bypass status for obesity (2) H/O arthroscopic knee surgery (3) Hx of appendectomy (4) S/P bronchoscopy (5) S/p EGD (6) Status post cholecystectomy (7) Status post repair of paraesophageal diaphragmatic hernia Family History Unobtainable family history due to adoption Social History Smoking Status: Former Smoker Alcohol Use: none Drug Use: none, marijuana Marital Status: Housing Status: lives with significant other Occupation Status: unemployed Current/Historical Medications Scheduled Albuterol Sulfate (Proair Respiclick), 2 PUFFS INH QID Baclofen (Baclofen), 5 MG PO BID Calcium-Magnesium W/ Vitamin D (Opurity Calcium Citr... 300-20-200 mg-mg-Unit), 2 TABS PO QAM Cholecalciferol (D 1999), 2,000 UNITS PO DAILY Cyanocobalamin (Cyanocobalamin), 1,000 MCG IM [id number] Gabapentin (Gabapentin), 100 MG PO BID Omeprazole (Prilosec), 20 MG PO DAILY Pediatric Multiple Vitamins W/ (Flintstones Plus Iron), 2 TABS PO QAM Sucralfate (Sucralfate), 1 GM PO QID Trazodone Hcl (Trazodone), 50 MG PO HS Venlafaxine Hcl (Effexor), 100 MG PO BID Scheduled PRN Diphenhydramine-Acetaminophen (Tylenol Pm), 1 TAB PO HS PRN for Insomnia Ondansetron Hcl (Zofran), 4 MG PO Q6 PRN for Nausea Allergies Coded Allergies: Codeine (Verified Allergy, Intermediate, DIARRHEA/RASH,TOLERATES PERCOCET , 07/18/17) TOLERATES PERCOCET NSAIDs (Verified Allergy, Unknown, UNKNOWN, 07/18/17) Clonazepam (Verified Adverse Reaction, Intermediate, "PASS OUT", 07/18/17) Hydrocodone (Verified Adverse Reaction, Intermediate, OVER SEDATION, ) Hydromorphone (Verified Adverse Reaction, Intermediate, weakness,sweating , 07/18/17) Sulfamethoxazole w/Trimethoprim (Verified Adverse Reaction, Intermediate, DELIRIUM, 07/18/17) pt devoped invontary muscle spasm ; Aspirin (Verified Adverse Reaction, Mild, STOMACH IRRITATION, 07/18/17) Cephalexin (Verified Adverse Reaction, Mild, GI SYMPTOMS, 07/18/17) UPSET STOMACH Physical Exam Vital Signs Date Time Temp Pulse Resp B/P (MAP) Pulse Ox O2 Delivery O2 Flow Rate FiO2 07/18/17 19:41 77 16 96 Room Air 07/18/17 19:26 77 15 96 07/18/17 19:11 79 14 96 07/18/17 19:06 77 17 97 Room Air 07/18/17 19:02 103/70 07/18/17 19:01 104/70 07/18/17 18:45 35.2 07/18/17 18:36 85 100 Non-Rebreather 6.0 07/18/17 18:31 93/69 07/18/17 18:21 80 18 07/18/17 18:06 66 17 100 Non-Rebreather 6.0 07/18/17 18:01 103/75 07/18/17 17:51 64 19 100 Non-Rebreather 6.0 07/18/17 17:36 59 13 100 Non-Rebreather 6.0 07/18/17 17:31 102/65 07/18/17 17:30 63 15 100 Non-Rebreather 6.0 07/18/17 17:01 109/75 07/18/17 17:00 77 15 07/18/17 16:52 76 07/18/17 16:49 34.8 76 18 98/70 100 Non-Rebreather 6.0 07/18/17 15:53 100 Non-Rebreather 8.0 07/18/17 15:38 34.8 91 11 102/72 93 Room Air Physical Exam GENERAL: Somnolent and no acute distress. EYE EXAM: Pupils slightly constricted bilaterally but responsive. OROPHARYNX: no exudate, no erythema, lips, buccal mucosa, and tongue normal and mucous membranes are dry. Diminished gag reflex. NECK: supple, no nuchal rigidity, no adenopathy, non-tender LUNGS: Decreased breath sounds. No wheezes rhonchi or rales. Normal chest wall mechanics HEART: no murmurs, S1 normal and S2 normal CHEST: No crepitus, no obvious trauma. ABDOMEN: abdomen soft, non-tender, normo-active bowel sounds, no masses, no rebound or guarding. BACK: Back is symmetrical on inspection and there is no deformity, no midline tenderness, no CVA tenderness. PELVIS: Pelvis is stable. SKIN: no rashes and no bruising UPPER EXTREMITIES: upper extremities are grossly normal. No obvious deformities. Normal pulses bilaterally. LOWER EXTREMITIES: No pitting edema. No obvious deformities. NEURO EXAM: Patient responds to pain. Intermittently moaning per the family. Becomes agitated when aroused Medical Decision & Procedures ER Provider Diagnostic Interpretation: Radiology results have been interpreted by the radiologist and reviewed by me. HEAD WITHOUT CONTRAST (CT) CT DOSE: 1483.10 mGycm HISTORY: Mental status change unresponsive episode TECHNIQUE: Multiaxial CT images of the head were performed without the use of intravenous contrast. A dose lowering technique was utilized adhering to the principles of ALARA. Comparison: 02/13/2017 Findings: The paranasal sinuses and mastoid air cells are clear. The calvarium and skull base are intact. The ventricles and sulci are within normal limits. There is no mass, hematoma, midline shift, or acute infarct. Impression: No acute intracranial abnormality. The above report was generated using voice recognition software. It may contain grammatical, syntax or spelling errors. Electronically signed by: Tello Warren M.D. 07/18/2017 4:46 PM Dictated Date/Time: 07/18/2017 4:43 PM CHEST ONE VIEW PORTABLE CLINICAL HISTORY: unresponsive episode mental status change COMPARISON STUDY: 02/13/2017 FINDINGS: The bones soft tissues and hemidiaphragms are normal. The cardiomediastinal silhouette is normal. The lungs are clear. The pulmonary vasculature is normal. IMPRESSION: Negative chest. The above report was generated using voice recognition software. It may contain grammatical, syntax or spelling errors. Electronically signed by: Tello Warren M.D. 07/18/2017 4:29 PM Dictated Date/Time: 07/18/2017 4:28 PM CHEST ANGIO WITH CONTRAST CLINICAL HISTORY: ELEVATED TROP dyspnea TECHNIQUE: Transaxial acquisition with multi axial reformatted images COMPARISON STUDY: 01/25/2017 FINDINGS: Minimal atelectatic change thoracic aorta. No evidence for aneurysm or dissection. Pulmonary vasculature enhances appropriately. There are no pulmonary emboli. Minimal bibasilar atelectasis. Significant degenerative change thoracic spine. IMPRESSION: 1. Negative thoracic aorta. 2. No evidence for pulmonary embolus. 3. Lungs are clear. The above report was generated using voice recognition software. It may contain grammatical, syntax or spelling errors. Electronically signed by: Tello Warren M.D. 07/18/2017 7:12 PM Dictated Date/Time: 07/18/2017 7:07 PM ANGIO ABD/PELVIS WITH CONTRAST CLINICAL HISTORY: Bleeding Pain TECHNIQUE: Transaxial acquisition with multi axial reformatted images COMPARISON STUDY: 01/24/2017 FINDINGS: Moderate atherosclerotic change throughout the arterial structures of the abdomen and pelvis. No evidence for significant stenosis. Mild ectasia of the proximal celiac axis. Superior mesenteric artery is unremarkable. No significant stenosis of the renal arterial structures. Liver spleen and pancreas are unremarkable. The kidneys enhance uniformly. Prior gastric bypass type procedure change. Nonobstructive bowel pattern. Degenerative change of the lumbar spine stable compared to the prior study. Bladder is midline. IMPRESSION: 1. No acute process of the abdominal and pelvic arterial vasculature. 2. Nonobstructive bowel pattern. 3. No acute process of the abdomen or pelvis The above report was generated using voice recognition software. It may contain grammatical, syntax or spelling errors. Electronically signed by: Tello Warren M.D. 07/18/2017 7:17 PM Dictated Date/Time: 07/18/2017 7:13 PM Laboratory Results Test 07/18/17 15:55 07/18/17 16:09 07/18/17 16:45 07/18/17 17:00 Urine Color DK YELLOW Urine Appearance CLOUDY (CLEAR) Urine pH 5.0 (4.5-7.5) Urine Specific [place] 1.032 (1.000-1.030) Urine Protein 1+ (NEG) Urine Glucose (UA) NEG (NEG) Urine Ketones TRACE (NEG) Urine Occult Blood NEG (NEG) Urine Nitrite NEG (NEG) Urine Bilirubin NEG (NEG) Urine Urobilinogen NEG (NEG) Urine Leukocyte Esterase NEG (NEG) Urine WBC (Auto) 5-10 /hpf (0-5) Urine RBC (Auto) 5-10 /hpf (0-4) Urine Hyaline Casts (Auto) 10-30 /lpf (0-5) Urine Epithelial Cells (Auto) >30 /lpf (0-5) Urine Bacteria (Auto) NEG (NEG) Urine Renal Epithelial Cells 0-5 /lpf (0-5) Urine Pathogenic Casts 0-3 GRANULAR CASTS /lpf (0) Urine Opiates Screen NEG (NEG) Urine Methadone, Qualitative NEG (NEG) Urine Barbiturates NEG (NEG) Urine Phencyclidine (PCP) Level NEG (NEG) Ur Amphetamine/Methamphetamine NEG (NEG) MDMA (Ecstasy) Screen NEG (NEG) Urine Benzodiazepines Screen POS (NEG) Urine Cocaine Metabolite NEG (NEG) Urine Marijuana (THC) POS (NEG) Bedside Glucose 91 mg/dl (70-90) Total Bilirubin 0.3 mg/dl (0.2-1) Aspartate Amino Transf (AST/SGOT) 11 U/L (15-37) Alanine Aminotransferase (ALT/SGPT) 18 U/L (12-78) Alkaline Phosphatase 62 U/L (45-117) Pro-B-Type Natriuretic Peptide 236 pg/ml (0-900) Total Protein 5.5 gm/dl (6.4-8.2) Albumin 2.7 gm/dl (3.4-5.0) Globulin 2.8 gm/dl (2.5-4.0) Albumin/Globulin Ratio 1.0 (0.9-2) Lipase 65 U/L (73-393) Procalcitonin 0.09 ng/ml (0-0.5) Thyroid Stimulating Hormone (TSH) 0.951 uIu/ml (0.300-4.500) Salicylates Level 5.5 mg/dl (2.8-20) Acetaminophen Level 4 ug/ml (10-30) Ethyl Alcohol mg/dL < 3.0 mg/dl (0-3) Lyme Disease IgG Antibody NEG (NEG) Lyme Disease IgM Antibody NEG (NEG) Arterial Blood pH 7.32 (7.35-7.45) Arterial Blood Partial Pressure CO2 49 mmHg (35-46) Arterial Blood Partial Pressure O2 316 mm/Hg (80-95) Arterial Blood HCO3 25 mmol/L (19-24) Arterial Blood Oxygen Saturation 99.8 % (90-95) Arterial Blood Base Excess -1.8 mEq/L (-9-1.8) Arterial Blood Gas Delivery 6 LITERS Cole Test POS (POS) Ammonia 16.1 umol/L (11-32) Date/Time Source Procedure Growth Status 07/18/17 15:55 Urine , Clean Catch Urine Culture - Final NO GROWTH - LESS THAN 1,000 COLONIES/ML Complete Laboratory results per my review. Medications Administered Medications (Trade) Dose Ordered Sig/Gabriel Route Start Time Stop Time Status Last Admin Dose Admin Sodium Chloride 1,000 ml @ 999 mls/hr Q1H1M STAT IV 07/18/17 16:09 07/18/17 17:09 DC 07/18/17 16:45 999 MLS/HR Sodium Chloride 1,000 ml @ 999 mls/hr Q1H1M STAT IV 07/18/17 18:08 07/18/17 19:08 DC 07/18/17 18:45 999 MLS/HR Naloxone HCl (Narcan Inj) 0.4 mg NOW STAT IV 07/18/17 18:09 18 18:10 DC 07/18/17 19:48 0.4 MG Pantoprazole Sodium 40 mg/ Syringe 10 ml @ 5 mls/min NOW ONCE IV 07/18/17 18:45 07/18/17 18:46 DC 07/18/17 19:45 5 MLS/MIN ECG Per My Interpretation Indication: other (unresponsive) Rate (beats per minute): 86 Rhythm: normal sinus Findings: no acute ischemic change, no ectopy, other (Normal axis. Prolonged QT ) Change: REPEAT EKG: Normal sinus at 63bpm. No ischemia or ectopy. Prolonged QT ED Course 1549: The patient was evaluated in room C6. A complete history and physical exam was performed. 1609: Sodium Chloride 1000 ml @ 999 mls/hr IV 1658: I reevaluated the patient, and she was doing the same. 1738: I reassessed the patient, and she is still minimally responsive. 180: Review of EMR: The patient was seen by cardiology during her admission in January of 2017 and had an echocardiogram at that time. The EF was 65-70%. No wall motion abnormality. No significant valvular disease. 180: Sodium Chloride 1000 ml @ 999 mls/hr IV 180: Narcan 0.4mg IV 181: I reevaluated the patient and performed a bedside US. She had no obvious pericardial effusion and a grossly normal EF. She is doing a little better. 183: The patient woke up suddenly and vomited, had bowel movement, and then she became unresponsive again. Patient's bowel movement was noted to be maroon in color and was heme positive on guaiac testing. 184: Pantoprazole Sodium 40mg 10ml @ 5mls/min 1919: I reevaluated the patient, and she still looks the same. She is getting a second culture. 1926: I reviewed the patient's case with Dr. Carmona [facility] Hospitalist. He will evaluate the patient for further management. Medical Decision Differential diagnosis: Etiologies such as metabolic, infection, hypoglycemia, electrolyte abnormalities , cardiac sources, intracerebral event, toxicologic, neurologic, as well as others were entertained. Patient somnolent and only arousable to pain on arrival here, thought initially to be due to the benzodiazepines she was given by EMS prior to arrival. Patient slowly had improved alertness to painful stimuli as well as voice, however was never awake and talking able to give a history or answer questions. Patient with a history of drug abuse. Patient then found to have GI bleed while here and also found to have elevated troponin. Patient given IV Protonix , however was not given any aspirin or other anticoagulation for her elevated troponin. Patient with risk factors for ACS of the prior evaluation by cardiology with elevated troponin was unremarkable. No record in EMR of prior cardiac cath, a prior echo was reassuring. Patient appeared clinically dehydrated, was given IV fluids, other labs reassuring. Given decreased level of consciousness patient initially sent for CT of her head, after being found to have GI bleed as well patient still unresponsive, patient sent back down for CAT scan of her chest abdomen pelvis. No other abnormalities noted to explain patient's condition. No evidence of sepsis. When patient would arouse patient was moving all 4 extremities, had no obvious facial droop, I have a lower suspicion for occult CVA. Patient initially hypothermic on arrival, improved with application of Lionel hugger, most likely due to cold environment this patient was laying in the back of the car which was not running. Patient had not however been there for a long time she been inside with a family member at a doctor's appointment previously. Possible this is also related to initial hypoglycemia found by EMS. Patient very mildly hypokalemic, however no other acute lab abnormalities. Medication Reconcilliation Current Medication List: was personally reviewed by me Blood Pressure Screening Patient's blood pressure: Normal blood pressure Consults Time Called: 1925 Consulting Physician: Dr. Kristine Ramirez Hospitalist Returned Call: 1926 I reviewed the patient's case with Dr. Kristine [facility]. He will evaluate the patient for further management. Impression Primary Impression: Altered mental status Additional Impressions: GI bleed Elevated troponin Hypothermia Hypokalemia Critical Care I have personally spent greater than 45 minutes of critical care time in the direct management of this patient. This includes bedside care, interpretation of diagnostic studies, and testing, discussion with consultants, patient, and family members, and other required patient management activities. This 45 minutes is in excess of all separately billable procedures. Scribe Attestation The scribe's documentation has been prepared under my direction and personally reviewed by me in its entirety. I confirm that the note above accurately reflects all work, treatment, procedures, and medical decision making performed by me. Departure Information Dispostion Being Evaluated By Hospitalist Kvng Glover D.O. (PCP) Problem Qualifiers Primary Impression: Altered mental status Altered mental status type: unspecified Qualified Codes: R41.82 - Altered mental status, unspecified Additional Impressions: GI bleed GI bleed type/associated pathology: unspecified gastrointestinal hemorrhage type Qualified Codes: K92.2 - Gastrointestinal hemorrhage, unspecified Hypothermia Encounter type: initial encounter Qualified Codes: T68.XXXA - Hypothermia, initial encounter
[2017-07-18] MEDS ORDERED: CALC1CHW PO (16:25)
[2017-07-18] MEDS ORDERED: ALBU18002 INH (16:25)
[2017-07-18] MEDS ORDERED: NRN100 PO (16:28)
[2017-07-18] MEDS ORDERED: TRAZ50TA35 PO (16:28)
--- NOTE | 2017-07-18 16:30 | DIAGNOSTIC IMAGING REPORT ---
CHEST ONE VIEW PORTABLE CLINICAL HISTORY: unresponsive episode mental status change COMPARISON STUDY: 02/13/2017 FINDINGS: The bones soft tissues and hemidiaphragms are normal. The cardiomediastinal silhouette is normal. The lungs are clear. The pulmonary vasculature is normal. IMPRESSION: Negative chest. The above report was generated using voice recognition software. It may contain grammatical, syntax or spelling errors. Electronically signed by: Tello Warren M.D. 07/18/2017 4:29 PM Dictated Date/Time: 07/18/2017 4:28 PM
--- NOTE | 2017-07-18 16:47 | DIAGNOSTIC IMAGING REPORT ---
HEAD WITHOUT CONTRAST (CT) CT DOSE: 1483.10 mGycm HISTORY: Mental status change unresponsive episode TECHNIQUE: Multiaxial CT images of the head were performed without the use of intravenous contrast. A dose lowering technique was utilized adhering to the principles of ALARA. Comparison: 02/13/2017 Findings: The paranasal sinuses and mastoid air cells are clear. The calvarium and skull base are intact. The ventricles and sulci are within normal limits. There is no mass, hematoma, midline shift, or acute infarct. Impression: No acute intracranial abnormality. The above report was generated using voice recognition software. It may contain grammatical, syntax or spelling errors. Electronically signed by: Tello Warren M.D. 07/18/2017 4:46 PM Dictated Date/Time: 07/18/2017 4:43 PM
[2017-07-18 17:10] LABS: BASO % 0.3 %; BASO ABS # 0.02 K/uL (0-0.2); EOS % 0.3 %; EOS ABS # 0.02 K/uL (0-0.5); HEMATOCRIT 36.9 % (37-47); HEMOGLOBIN 12.2 g/dL (12.0-16.0); IG# 0.01 K/uL (0.00-0.02); LYMPH % 9.2 %; LYMPH ABS # 0.53 K/uL (1.2-3.4); MEAN CELL VOLUME 99.5 fL (80-100); MEAN CORPUSCULAR HEMOGLOBIN 32.9 pg (25-34); MEAN CORPUSCULAR HGB CONC 33.1 g/dl (32-36); MEAN PLATELET VOLUME 9.6 fL (7.4-10.4); MONO % 5.2 %; NEUT % 84.8 %; NEUT ABS # 4.86 K/uL (1.4-6.5); PLATELET COUNT 215 K/uL (130-400); RED CELL DISTRIBUTION WIDTH SD 54.6 fL (36.4-46.3); WHITE BLOOD COUNT 5.74 K/uL (4.8-10.8)
[2017-07-18 17:22] LABS: INR 1.1 (0.9-1.1)
[2017-07-18 17:31] LABS: ALBUMIN 2.7 gm/dl (3.4-5.0); ALT/SGPT 18 U/L (12-78); AST/SGOT 11 U/L (15-37); BLOOD UREA NITROGEN 10 mg/dl (7-18); CALCIUM 8.1 mg/dl (8.5-10.1); CARBON DIOXIDE 25 mmol/L (21-32); CREATININE 0.79 mg/dl (0.60-1.20); GLUCOSE 95 mg/dl (70-99); LIPASE 65 U/L (73-393); POTASSIUM 3.3 mmol/L (3.5-5.1); SODIUM 141 mmol/L (136-145)
[2017-07-18 17:48] LABS: ALKALINE PHOSPHATASE 62 U/L (45-117); TOTAL PROTEIN 5.5 gm/dl (6.4-8.2)
[2017-07-18] MEDS ORDERED: NALOXONE HCL 0.4 MG/1 ML VIAL/CARP IV STA (18:09)
[2017-07-18] MEDS ORDERED: OPTIRAY 320 IV PRN (18:15)
[2017-07-18] MEDS ORDERED: ONDANSETRON INJ 2 MG/ML 2 ML VIAL ONE (18:39)
[2017-07-18] MEDS ORDERED: PANTOprazole INJ 40 MG in SYRINGE 0 ML IV ONE (18:45)
--- NOTE | 2017-07-18 19:14 | DIAGNOSTIC IMAGING REPORT ---
CHEST ANGIO WITH CONTRAST CLINICAL HISTORY: ELEVATED TROP dyspnea TECHNIQUE: Transaxial acquisition with multi axial reformatted images COMPARISON STUDY: 01/25/2017 FINDINGS: Minimal atelectatic change thoracic aorta. No evidence for aneurysm or dissection. Pulmonary vasculature enhances appropriately. There are no pulmonary emboli. Minimal bibasilar atelectasis. Significant degenerative change thoracic spine. IMPRESSION: 1. Negative thoracic aorta. 2. No evidence for pulmonary embolus. 3. Lungs are clear. The above report was generated using voice recognition software. It may contain grammatical, syntax or spelling errors. Electronically signed by: Tello Warren M.D. 07/18/2017 7:12 PM Dictated Date/Time: 07/18/2017 7:07 PM
--- NOTE | 2017-07-18 19:19 | DIAGNOSTIC IMAGING REPORT ---
ANGIO ABD/PELVIS WITH CONTRAST CLINICAL HISTORY: Bleeding Pain TECHNIQUE: Transaxial acquisition with multi axial reformatted images COMPARISON STUDY: 01/24/2017 FINDINGS: Moderate atherosclerotic change throughout the arterial structures of the abdomen and pelvis. No evidence for significant stenosis. Mild ectasia of the proximal celiac axis. Superior mesenteric artery is unremarkable. No significant stenosis of the renal arterial structures. Liver spleen and pancreas are unremarkable. The kidneys enhance uniformly. Prior gastric bypass type procedure change. Nonobstructive bowel pattern. Degenerative change of the lumbar spine stable compared to the prior study. Bladder is midline. IMPRESSION: 1. No acute process of the abdominal and pelvic arterial vasculature. 2. Nonobstructive bowel pattern. 3. No acute process of the abdomen or pelvis The above report was generated using voice recognition software. It may contain grammatical, syntax or spelling errors. Electronically signed by: Tello Warren M.D. 07/18/2017 7:17 PM Dictated Date/Time: 07/18/2017 7:13 PM
[2017-07-18 20:00] LABS: PTT PATIENT 26.7 SECONDS (21.0-31.0)
[2017-07-18] MEDS ORDERED: NURSING VERBAL MED ORDER ONE (20:00)
[2017-07-18] MEDS ORDERED: POTASSIUM CHLR 10 MEQ / WTR 20 MEQ in PREMIXED WATER 100 ML IV ONE (20:15)
[2017-07-18] MEDS ORDERED: SODIUM CHLORIDE 0.9% 1000ML 1,000 ML IV SCH (20:15)
[2017-07-18] MEDS ORDERED: PIPERACILLIN/TAZOBACTAM 4.5 GM/100ML D5W IV STA (20:18)
[2017-07-18] MEDS ORDERED: ALBUT/IPRATROP 3MG/0.5MG NEB 3 ML VIAL INH PRN (20:30)
[2017-07-18] MEDS ORDERED: NITROGLYCERIN 0.4 MG SL PER TAB CHARGE SL PRN (20:30)
[2017-07-18] MEDS ORDERED: PROCHLORPERAZINE INJ 5 MG in SYRINGE 4 ML IV PRN (20:30)
[2017-07-18] MEDS ORDERED: ACETAMINOPHEN IV 650 MG in EMPTY BAG 0 ML IV PRN (20:30)
[2017-07-18] MEDS ORDERED: ACETAMINOPHEN 325 MG TAB PO PRN (20:30)
[2017-07-18 20:43] LABS: HEMATOCRIT 33.1 % (37-47); HEMOGLOBIN 10.8 g/dL (12.0-16.0)
[2017-07-18] MEDS ORDERED: PROCHLORPERAZINE 5 MG/ML 2 ML VIAL ONE (20:55)
[2017-07-18] MEDS: SUCRALFATE 1 GM TAB PO SCH (21:00)
[2017-07-18] MEDS ORDERED: LACTATED RINGER'S 1000ML 1,000 ML IV SCH (21:00)
[2017-07-18] MEDS: POTASSIUM CHLORIDE 10 MEQ / 100ML WTR IV SCH ×2 (21:10→23:17)
[2017-07-18] MEDS ORDERED: AMPICILLIN/SULBACTAM CONSULT ACTIVE PRN (21:30)
[2017-07-18] MEDS ORDERED: LACTATED RINGER'S 1000ML 1,000 ML IV ONE (21:30)
[2017-07-18] MEDS ORDERED: METOCLOPRAMIDE HCL INJ 5 MG/ML 2 ML VIAL IV PRN (21:45)
--- NOTE | 2017-07-18 22:04 | HISTORY & PHYSICAL EXAMINATION ---
DATE OF ADMISSION: 07/18/2017 PRIMARY CARE PHYSICIAN: Kvng Ceron DO. CHIEF COMPLAINT: Confusion, hallucinations as per records. HISTORY OF PRESENT ILLNESS: History obtained from ER provider and records. Unable to obtain history from patient secondary to unconscious state. Medical history significant for mood disorder, gastric bypass, reflux, fibromyalgia, substance abuse as per records, restless leg syndrome, past tobacco abuse. Recent confinement last January 2017 for elevated troponin and abdominal pain, no ACS. A 2D echo from that confinement showed EF of 65-70%, diastolic dysfunction. As per records, the patient was noted to have confusion, unresponsiveness today , dry heaving prior to coming to the hospital. While in the car, the patient stretched her legs and went unconscious as per account. Patient later noted to be agitated, given intranasal Versed by EMS because of agitation. At the Emergency Room, the patient noted to be hypothermic, unresponsive. No response to Narcan. Upon return from CT, around 6:45 p.m. the patient ripped off her nonrebreather mask and began dry heaving at the ER. The patient looked to be drooling, appeared to have swallowed vomit as per RN account. Patient noted to have mucoid mary kay colored stool, hemoccult positive. Protonix IV given for possible GI bleed. MEDICAL HISTORY: As above. On recent followup visit with Rheumatology, January 2018, the patient told provider that she was no longer seeing her psychiatrist because "too many people were telling what to do." SURGERIES: Gastric bypass, knee surgery, appendix, cholecystectomy, hernia repair, shoulder surgery. HOME MEDICATIONS: Include gabapentin, Prilosec, Zofran, multivitamins, Carafate, trazodone, Effexor, albuterol, baclofen, cholecalciferol, Tylenol. ALLERGIES: ASPIRIN, CEPHALEXIN, CLONAZEPAM, CODEINE, HYDROCODONE, HYDROMORPHONE, BACTRIM, NSAIDS. FAMILY HISTORY: Could not be obtained . PERSONAL AND SOCIAL HISTORY: Past tobacco abuse. No chronic intake of alcoholic beverages as per records. Patient on disability. REVIEW OF SYSTEMS: Could not be obtained. PHYSICAL EXAMINATION: VITAL SIGNS: Blood pressure was noted to be 98/70, later 84/60, pulse rate 77, RR 15, temperature 35.2, sats 100 on 6%, later 96 on room air. GENERAL: Noted to be unconscious, no respiratory distress. Looks older than stated age. SKIN: Normal color, warm. HEENT: [place] palpebral conjunctiva. No ptosis. Dry mucosa. NECK: Supple, nontender. CHEST: Decreased effort. Occasional wheeze. HEART: Regular rate and rhythm, no murmur. ABDOMEN: Some distention, nontender. EXTREMITIES: No edema. No gross deformity. No tenderness. NEUROLOGIC: Unconscious. Miotic pupils. Gait and stance not assessed. No facial asymmetry. LABORATORY DATA: Hemoglobin was noted to be 12.2, hematocrit 36.9, white cell count 5.74, platelets noted to be 215. Sodium noted to be 141, potassium 3.3, chloride 111, CO2 25, BUN 10, creatinine 0.7, glucose was noted to be 95. Troponin was noted to be 1.3. Alcohol level was less than 3. UA, specific gravity 1.02. Ketones trace, urine WBC 5-10, epithelials cells, hyaline cast, RBC 5-10. CT head, no acute pathology. CT angio chest, abdomen and pelvis negative PE, nonobstructive bowel pattern. EKG as per my interpretation, NSR, normal axis, no ischemia. Urine tox positive for marijuana and benzo. ASSESSMENT: 1. Unresponsiveness likely secondary to hypotension secondary to hypovolemia, clinical dehydration. possible drug overdose/medication interaction (patient on multiple neuro- psychotropic meds) Possible sepsis (possible sources : aspiration pneumonitis, urinary tract infection/contaminated specimen however, cdif) 2. Troponin elevation Likely reactive Doubt ACS 3. Lower gastrointestinal bleed, rule out Clostridium difficile hemoglobin stable for now. 4. mood disorder, unknown status. 5. Fibromyalgia as per records. 6. Past tobacco abuse. 7. History of bariatric surgery. 8. Hypokalemia secondary to emesis. PLAN: PCU. Appropriate to hold home neuro-psychotropic meds until patient more awake . IVF CS, stool cdif Zosyn for now for possible aspiration pneumonitis, UTI. Consider EEG and MRI of the brain if patient mentation unimproved in AM. Trend cardiac markers, TTE if with progression trend H&H. GI consult if with bleeding progression, significant hemoglobin drop Replace potassium. PT OT eval DVT prophylaxis, SCDs RE GI bleed. Full code. Will attempt to obtain more history of patient once more awake. Attempted to contact patient , Mr. Sabas Carty at [phone] for additional history over the phone. No answer. MARCO
[2017-07-18 23:25] VITALS: BP 105/69; PULSE 66; TEMP 36.8; O2SAT 99; Ht 160 cm; Wt 73.5 kg
[2017-07-18 23:43] VITALS: BP 97/65; PULSE 64; TEMP 36.4; O2SAT 100
[2017-07-19] VITALS (7 sets, daily range): BP systolic 108–119; BP diastolic 64–80; PULSE 59–97; TEMP 36.3–36.8; O2SAT 95–100
[2017-07-19] MEDS: AMPICILLIN/SULBACTAM SOD INJ 1,500 MG in SODIUM CHLORIDE 0.9% 100ML 100 ML IV SCH ×4 (04:17→21:53)
[2017-07-19 06:22] LABS: BASO % 0.7 %; BASO ABS # 0.03 K/uL (0-0.2); EOS % 2.2 %; HEMOGLOBIN 11.1 g/dL (12.0-16.0); LYMPH % 25.3 %; LYMPH ABS # 1.16 K/uL (1.2-3.4); MEAN CELL VOLUME 101.2 fL (80-100); MEAN CORPUSCULAR HEMOGLOBIN 32.1 pg (25-34); MEAN CORPUSCULAR HGB CONC 31.7 g/dl (32-36); MEAN PLATELET VOLUME 9.3 fL (7.4-10.4); MONO ABS # 0.46 K/uL (0.11-0.59); NEUT % 61.8 %; NEUT ABS # 2.84 K/uL (1.4-6.5); PLATELET COUNT 197 K/uL (130-400); RED CELL DISTRIBUTION WIDTH CV 15.2 % (11.5-14.5); RED CELL DISTRIBUTION WIDTH SD 56.1 fL (36.4-46.3); WHITE BLOOD COUNT 4.59 K/uL (4.8-10.8)
[2017-07-19 06:53] LABS: CALCIUM 7.7 mg/dl (8.5-10.1); CREATININE 0.72 mg/dl (0.60-1.20); POTASSIUM 4.2 mmol/L (3.5-5.1)
[2017-07-19] MEDS: PANTOprazole SOD 40 MG TAB PO SCH (08:12)
[2017-07-19] MEDS: SUCRALFATE 1 GM TAB PO SCH ×4 (08:12→21:25)
--- NOTE | 2017-07-19 16:46 | Progress Note ---
Internal Med Progress Note Date of Service: Jul 19, 2017. Provider Documentation: SUBJECTIVE: alert and awake says feels lightheaded denies any chest pain or sob no nausea afebrile says she passed out in car while waiting for her sister in law doctors appointment OBJECTIVE: Vital Signs-as noted below Exam: General-alert and oriented. ENT-Normal hearing Neck-no neck masses Lungs-cta b/l no wheezing no crackles present Heart-S1 and S2 heard regular rate and rhythm no murmurs Abdomen-Soft bowel sounds present non tender no distension Extremities-no edema no erythema Neuro-alert and awake moves extremities non focal Lab data as noted below. ASSESSMENT & PLAN: 1. Unresponsiveness likely secondary to hypotension secondary to hypovolemia, clinical dehydration. possible drug overdose/medication interaction (patient on multiple neuro- psychotropic meds) Encephalopathy from polypharmacy from centrally acting meds? ct head negative cxr negative cta chest and abdomen/pelvis unremarkable lactic acid normal on empiric Unasyn currently awake and oriented continue to monitor in tele 2. Troponin elevation Likely reactive ekg unremarkable asymptomatic currently will get echo.consult cardio in am as patient had unresponsive episode 3. Lower gastrointestinal bleed, rule out Clostridium difficile hemepositive stool hemoglobin stable for now.Will monitor 4. mood disorder, unknown status.restart Effexor 5. Fibromyalgia as per records. 6. Past tobacco abuse. 7. History of bariatric surgery. 8. Hypokalemia secondary to emesis. replaced DVT PROPHYLAXIS scds DISPOSITION monitor in tele to be determined Vital Signs: Date Time Temp Pulse Resp B/P (MAP) Pulse Ox O2 Delivery O2 Flow Rate FiO2 07/20/17 08:00 Room Air 07/20/17 07:37 36.7 62 20 115/78 (90) 97 Room Air 07/20/17 04:07 Room Air 07/20/17 03:19 36.6 70 18 113/76 (88) 100 Room Air 07/20/17 00:14 36.7 87 18 109/72 (84) 98 Room Air 07/20/17 00:10 Room Air 07/19/17 20:00 Room Air 07/19/17 19:54 36.8 97 18 117/74 (88) 95 Room Air 07/19/17 16:00 Room Air 07/19/17 15:41 36.4 70 16 112/75 (87) 100 Room Air 07/19/17 12:00 Room Air 07/19/17 10:59 36.7 89 20 119/80 (93) 96 Room Air Lab Results: Results Past 24 Hours Test 07/20/17 05:52 Range/Units White Blood Count 4.49 4.8-10.8 K/uL Red Blood Count 3.43 4.2-5.4 M/uL Hemoglobin 11.3 12.0-16.0 g/dL Hematocrit 34.7 37-47 % Mean Corpuscular Volume 101.2 80-100 fL Mean Corpuscular Hemoglobin 32.9 25-34 pg Mean Corpuscular Hemoglobin Concent 32.6 32-36 g/dl Platelet Count 198 130-400 K/uL Mean Platelet Volume 9.7 7.4-10.4 fL Neutrophils (%) (Auto) 46.4 % Lymphocytes (%) (Auto) 40.3 % Monocytes (%) (Auto) 10.0 % Eosinophils (%) (Auto) 2.2 % Basophils (%) (Auto) 0.9 % Neutrophils # (Auto) 2.08 1.4-6.5 K/uL Lymphocytes # (Auto) 1.81 1.2-3.4 K/uL Monocytes # (Auto) 0.45 0.11-0.59 K/uL Eosinophils # (Auto) 0.10 0-0.5 K/uL Basophils # (Auto) 0.04 0-0.2 K/uL RDW Standard Deviation 56.7 36.4-46.3 fL RDW Coefficient of Variation 15.5 11.5-14.5 % Immature Granulocyte % (Auto) 0.2 % Immature Granulocyte # (Auto) 0.01 0.00-0.02 K/uL
[2017-07-19] MEDS: ALBUTEROL HFA 8 GM INHALER INH SCH ×2 (17:00→21:25)
[2017-07-19] MEDS: GABAPENTIN 100 MG CAP PO SCH (21:25)
[2017-07-19] MEDS: VENLAFAXINE HCL 50 MG TAB PO SCH (21:25)
[2017-07-20] VITALS (7 sets, daily range): BP systolic 99–131; BP diastolic 67–88; PULSE 62–87; TEMP 36.6–37; O2SAT 96–100
[2017-07-20] MEDS: AMPICILLIN/SULBACTAM SOD INJ 1,500 MG in SODIUM CHLORIDE 0.9% 100ML 100 ML IV SCH ×4 (04:03→22:13)
[2017-07-20 06:24] LABS: BASO % 0.9 %; BASO ABS # 0.04 K/uL (0-0.2); EOS % 2.2 %; HEMATOCRIT 34.7 % (37-47); HEMOGLOBIN 11.3 g/dL (12.0-16.0); IG# 0.01 K/uL (0.00-0.02); LYMPH % 40.3 %; LYMPH ABS # 1.81 K/uL (1.2-3.4); MEAN CELL VOLUME 101.2 fL (80-100); MEAN CORPUSCULAR HEMOGLOBIN 32.9 pg (25-34); MEAN CORPUSCULAR HGB CONC 32.6 g/dl (32-36); MEAN PLATELET VOLUME 9.7 fL (7.4-10.4); MONO ABS # 0.45 K/uL (0.11-0.59); NEUT % 46.4 %; NEUT ABS # 2.08 K/uL (1.4-6.5); PLATELET COUNT 198 K/uL (130-400); RED CELL DISTRIBUTION WIDTH CV 15.5 % (11.5-14.5); RED CELL DISTRIBUTION WIDTH SD 56.7 fL (36.4-46.3); WHITE BLOOD COUNT 4.49 K/uL (4.8-10.8)
[2017-07-20] MEDS: ALBUTEROL HFA 8 GM INHALER INH SCH ×4 (08:15→21:31)
[2017-07-20] MEDS: SUCRALFATE 1 GM TAB PO SCH ×4 (08:16→21:32)
[2017-07-20] MEDS: VENLAFAXINE HCL 50 MG TAB PO SCH ×2 (08:17→21:32)
[2017-07-20] MEDS: PANTOprazole SOD 40 MG TAB PO SCH (08:17)
[2017-07-20] MEDS: GABAPENTIN 100 MG CAP PO SCH ×2 (08:17→21:35)
--- NOTE | 2017-07-20 09:20 | ECHOCARDIOGRAM REPORT ---
*NOTICE TO RECEIVING CONSTITUTION PARTY AGENCY This information is strictly Confidential and protected under [place] law. [place] law prohibits you from making any further disclosure of this information unless further disclosure is expressly permitted by the written consent of the person to whom it pertains or is authorized by law. A general authorization for the release of medical or other information is not sufficient for this purpose. Hospital accepts no responsibility if the information is made available to any other person, INCLUDING THE PATIENT. Interpretation Summary * Name: SAMY MADRID Study Date: 07/20/2017 06:44 AM BP: 113/76 mmHg * Patient Location: C.2T\S\S238\S\1 HR: 78 * : 1960 (M/d/yyyy) Gender: Female Height: 63 in * Age: 57 yrs Ethnicity: [place] Weight: 158 lb * Ordering Physician: Mert Mosquera * Referring Physician: Self, Referred * Performed By: Mohan Toro RDCS * * Reason For Study: Elevated troponin * BSA: 1.7 m2 * The study was technically adequate. * Compared to prior study, changes are noted. * -- Conclusions -- * Left ventricular systolic function is normal. * Ejection Fraction = 55-60%. * There is an area of focal hypokinesis involving the mid inferior and posterior cotton. * There is mild mitral regurgitation. * Grade I diastolic dysfunction, (abnormal relaxation pattern). Procedure Details * A complete two-dimensional transthoracic echocardiogram was performed (2D, M-mode, Doppler and color flow Doppler). * The study was technically adequate. Left Ventricle * The left ventricle is normal in size. * There is no thrombus. * There is normal left ventricular wall thickness. * Left ventricular systolic function is normal. * Ejection Fraction = 55-60%. * There is an area of focal hypokinesis involving the mid inferior and posterior cotton. Right Ventricle * The right ventricle is normal size. * The right ventricular systolic function is normal as assessed by tricuspid annular plane systolic excursion (TAPSE) (normal >1.5 cm). Atria * The left atrial size is normal. * Right atrial size is normal. * There is no evidence of atrial septal defect, but resolution does not allow assessment for a patent foramen ovale. Mitral Valve * The mitral valve is normal. * There is no mitral valve stenosis. * There is mild mitral regurgitation. Tricuspid Valve * The tricuspid valve is normal. * There is no tricuspid stenosis. * Significant tricuspid regurgitation is absent. Aortic Valve * The aortic valve is trileaflet. * Aortic stenosis is absent. * There is no significant aortic regurgitation. Pulmonic Valve * The pulmonary valve is not well seen, but the Doppler examination is normal without significant regurgitation or stenosis. Great Vessels * The aortic root and proximal ascending aorta are normal sized. Pericardium/Pleural * There is no pericardial effusion. Great Vessels * Normal inferior vena cava diameter and respiratory variation suggests normal central venous pressure. Left Ventricular Diastolic Function * Grade I diastolic dysfunction, (abnormal relaxation pattern). MMode 2D Measurements and Calculations IVSd 1.1 cm IVSs 1.4 cm LVIDd 4.7 cm LVIDs 3.4 cm LVPWd 1.1 cm LVPWs 1.5 cm IVS/LVPW 1.0 FS 26.4 % EDV(Teich) 101.7 ml ESV(Teich) 49.1 ml EF(Teich) 51.7 % EDV(cubed) 102.9 ml ESV(cubed) 41.0 ml EF(cubed) 60.2 % % IVS thick 24.1 % % LVPW thick 37.6 % LV mass(C)d 184.7 grams LV mass(C)dI 105.6 grams/m\S\2 LV mass(C)s 174.9 grams LV mass(C)sI 100.0 grams/m\S\2 SV(Teich) 52.6 ml SI(Teich) 30.1 ml/m\S\2 SV(cubed) 61.9 ml SI(cubed) 35.4 ml/m\S\2 EPSS 0.90 cm Ao root diam 3.1 cm Ao root area 7.4 cm\S\2 ACS 1.8 cm LA dimension 4.2 cm asc Aorta Diam 2.9 cm LA/Ao 1.4 LVOT diam 2.0 cm LVOT area 3.1 cm\S\2 LVAd ap4 33.7 cm\S\2 LVLd ap4 8.8 cm EDV(MOD-sp4) 107.2 ml EDV(sp4-el) 109.5 ml LVAs ap4 22.4 cm\S\2 LVLs ap4 7.7 cm ESV(MOD-sp4) 55.8 ml ESV(sp4-el) 55.4 ml EF(MOD-sp4) 47.9 % EF(sp4-el) 49.4 % LVAd ap2 31.6 cm\S\2 LVLd ap2 8.9 cm EDV(MOD-sp2) 91.0 ml EDV(sp2-el) 95.8 ml LVAs ap2 20.1 cm\S\2 LVLs ap2 7.5 cm ESV(MOD-sp2) 44.2 ml ESV(sp2-el) 45.4 ml EF(MOD-sp2) 51.4 % EF(sp2-el) 52.6 % LVLd %diff -0.32 % EDV(MOD-bp) 104.3 ml LVLs %diff 2.7 % ESV(MOD-bp) 49.0 ml EF(MOD-bp) 53.0 % SV(MOD-sp4) 51.4 ml SI(MOD-sp4) 29.4 ml/m\S\2 SV(MOD-sp2) 46.8 ml SI(MOD-sp2) 26.7 ml/m\S\2 SV(MOD-bp) 55.2 ml SI(MOD-bp) 31.6 ml/m\S\2 SV(sp4-el) 54.2 ml SI(sp4-el) 31.0 ml/m\S\2 SV(sp2-el) 50.4 ml SI(sp2-el) 28.8 ml/m\S\2 Doppler Measurements and Calculations MV E max ngoc 72.8 cm/sec MV A max ngoc 86.8 cm/sec MV E/A 0.84 MV dec time 0.34 sec Ao V2 max 149.8 cm/sec Ao max PG 9.0 mmHg Ao max PG (full) 6.4 mmHg HETAL(V,A) 1.7 cm\S\2 HETAL(V,D) 1.7 cm\S\2 LV V1 max PG 2.6 mmHg LV V1 max 80.7 cm/sec
[2017-07-20] MEDS ORDERED: ATORVASTATIN 20 MG TAB PO ONE (10:44)
[2017-07-20] MEDS ORDERED: ASPIRIN 81 MG ECTAB PO STA (11:12)
[2017-07-20] MEDS ORDERED: HEPARIN IV LOW DOSE NO BOLUS SCH (11:17)
[2017-07-20] MEDS ORDERED: ASPIRIN 81 MG CHEW PO STA (11:40)
[2017-07-20] MEDS ORDERED: NURSING VERBAL MED ORDER ONE (11:45)
[2017-07-20 11:48] LABS: BASO % 0.3 %; BASO ABS # 0.01 K/uL (0-0.2); EOS % 0.8 %; EOS ABS # 0.03 K/uL (0-0.5); HEMOGLOBIN 11.8 g/dL (12.0-16.0); IG# 0.01 K/uL (0.00-0.02); LYMPH % 32.6 %; LYMPH ABS # 1.18 K/uL (1.2-3.4); MEAN CELL VOLUME 100.8 fL (80-100); MEAN CORPUSCULAR HEMOGLOBIN 33.1 pg (25-34); MEAN PLATELET VOLUME 9.5 fL (7.4-10.4); MONO % 9.1 %; MONO ABS # 0.33 K/uL (0.11-0.59); NEUT % 56.9 %; NEUT ABS # 2.06 K/uL (1.4-6.5); PLATELET COUNT 198 K/uL (130-400); RED CELL DISTRIBUTION WIDTH CV 15.1 % (11.5-14.5); RED CELL DISTRIBUTION WIDTH SD 55.9 fL (36.4-46.3); WHITE BLOOD COUNT 3.62 K/uL (4.8-10.8)
[2017-07-20 11:51] LABS: MEAN CORPUSCULAR HGB CONC 32.8 g/dl (32-36)
[2017-07-20 12:11] LABS: PTT PATIENT 27.1 SECONDS (21.0-31.0)
[2017-07-20] MEDS: HEPARIN 25,000 UNIT/500ML D5W 500 ML IV SCH ×2 (12:14→23:07)
--- NOTE | 2017-07-20 16:16 | Progress Note ---
Internal Med Progress Note Date of Service: Jul 20, 2017. Provider Documentation: SUBJECTIVE: alert and awake and resting comfortably denies any chest pain or sob afebrile says had bowel movement and there was no blood in stools or had black stools no nausea or abdominal pain OBJECTIVE: Vital Signs-as noted below Exam: General-alert and oriented. ENT-Normal hearing Neck-no neck masses Lungs-cta b/l no wheezing no crackles present Heart-S1 and S2 heard regular rate and rhythm no murmurs Abdomen-Soft bowel sounds present non tender no distension Extremities-no edema no erythema Neuro-alert and awake moves extremities non focal Lab data as noted below. ASSESSMENT & PLAN: 1. Unresponsiveness likely secondary to hypotension secondary to hypovolemia, clinical dehydration. possible drug overdose/medication interaction (patient on multiple neuro- psychotropic meds) Encephalopathy from polypharmacy from centrally acting meds? ct head negative cxr negative cta chest and abdomen/pelvis unremarkable lactic acid normal on empiric Unasyn currently awake and oriented continue to monitor in tele echo showed mild wall motion abnormality and cardio planing for cardiac cath 2. Troponin elevation ekg unremarkable asymptomatic currently echo shows focal hypokinesis involving the mid inferior and posterior cotton and cardiology planning for cardiac cath started on iv heparin and aspirin 3. Lower gastrointestinal bleed, rule out Clostridium difficile hemepositive stool. hx of bariatric surgery hemoglobin stable for now. on PPI consulted GI for further evaluation as patient may need antiplatelets on discharge for CAD. possible egd in am after GI evaluation currently started on iv heparin and aspirin for CAD. Will stop if there is obvious bleeding f/u labs 4. mood disorder, unknown status.restart Effexor 5. Fibromyalgia as per records. 6. Past tobacco abuse. 7. Hypokalemia secondary to emesis. replaced DVT PROPHYLAXIS scds DISPOSITION monitor in tele to be determined Vital Signs: Date Time Temp Pulse Resp B/P (MAP) Pulse Ox O2 Delivery O2 Flow Rate FiO2 07/20/17 15:00 36.9 72 18 119/78 (92) 99 Room Air 07/20/17 12:00 Room Air 07/20/17 11:16 37.0 68 20 117/74 (88) 100 Room Air 07/20/17 08:00 Room Air 07/20/17 07:37 36.7 62 20 115/78 (90) 97 Room Air 07/20/17 04:07 Room Air 07/20/17 03:19 36.6 70 18 113/76 (88) 100 Room Air 07/20/17 00:14 36.7 87 18 109/72 (84) 98 Room Air 07/20/17 00:10 Room Air 07/19/17 20:00 Room Air 07/19/17 19:54 36.8 97 18 117/74 (88) 95 Room Air Lab Results: Results Past 24 Hours Test 07/20/17 05:52 07/20/17 11:37 Range/Units White Blood Count 4.49 3.62 4.8-10.8 K/uL Red Blood Count 3.43 3.57 4.2-5.4 M/uL Hemoglobin 11.3 11.8 12.0-16.0 g/dL Hematocrit 34.7 36.0 37-47 % Mean Corpuscular Volume 101.2 100.8 80-100 fL Mean Corpuscular Hemoglobin 32.9 33.1 25-34 pg Mean Corpuscular Hemoglobin Concent 32.6 32.8 32-36 g/dl Platelet Count 198 198 130-400 K/uL Mean Platelet Volume 9.7 9.5 7.4-10.4 fL Neutrophils (%) (Auto) 46.4 56.9 % Lymphocytes (%) (Auto) 40.3 32.6 % Monocytes (%) (Auto) 10.0 9.1 % Eosinophils (%) (Auto) 2.2 0.8 % Basophils (%) (Auto) 0.9 0.3 % Neutrophils # (Auto) 2.08 2.06 1.4-6.5 K/uL Lymphocytes # (Auto) 1.81 1.18 1.2-3.4 K/uL Monocytes # (Auto) 0.45 0.33 0.11-0.59 K/uL Eosinophils # (Auto) 0.10 0.03 0-0.5 K/uL Basophils # (Auto) 0.04 0.01 0-0.2 K/uL RDW Standard Deviation 56.7 55.9 36.4-46.3 fL RDW Coefficient of Variation 15.5 15.1 11.5-14.5 % Immature Granulocyte % (Auto) 0.2 0.3 % Immature Granulocyte # (Auto) 0.01 0.01 0.00-0.02 K/uL Prothrombin Time 11.0 9.0-12.0 SECONDS Prothromb Time International Ratio 1.0 0.9-1.1 Activated Partial Thromboplast Time 27.1 21.0-31.0 SECONDS Partial Thromboplastin Ratio 1.0
[2017-07-20 18:29] LABS: HEMATOCRIT 35.1 % (37-47); HEMOGLOBIN 11.4 g/dL (12.0-16.0)
[2017-07-20 18:42] LABS: PTT PATIENT 29.5 SECONDS (21.0-31.0)
[2017-07-20] MEDS ORDERED: PANTOprazole SOD 40 MG TAB PO SCH (21:00)
[2017-07-20] MEDS ORDERED: hydrOXYzine HCL 10 MG TAB PO ONE (21:15)
[2017-07-20] MEDS: LANSOPRAZOLE SOLUTAB 30 MG PO SCH (22:13)
[2017-07-20] MEDS ORDERED: HEPARIN IV BOLUS 4,000 UNIT in SYRINGE 0 ML IV ONE (23:15)
[2017-07-21] VITALS (13 sets, daily range): BP systolic 109–140; BP diastolic 72–89; PULSE 60–91; TEMP 36.5–36.8; O2SAT 97–100
[2017-07-21] MEDS: AMPICILLIN/SULBACTAM SOD INJ 1,500 MG in SODIUM CHLORIDE 0.9% 100ML 100 ML IV SCH ×2 (04:07→09:38)
[2017-07-21 05:15] LABS: BASO % 0.5 %; BASO ABS # 0.02 K/uL (0-0.2); EOS % 2.3 %; EOS ABS # 0.09 K/uL (0-0.5); HEMATOCRIT 33.8 % (37-47); LYMPH % 42.2 %; LYMPH ABS # 1.66 K/uL (1.2-3.4); MEAN CELL VOLUME 101.2 fL (80-100); MEAN CORPUSCULAR HEMOGLOBIN 32.9 pg (25-34); MEAN CORPUSCULAR HGB CONC 32.5 g/dl (32-36); MEAN PLATELET VOLUME 9.5 fL (7.4-10.4); MONO % 10.4 %; MONO ABS # 0.41 K/uL (0.11-0.59); NEUT % 44.6 %; NEUT ABS # 1.75 K/uL (1.4-6.5); PLATELET COUNT 180 K/uL (130-400); RED CELL DISTRIBUTION WIDTH CV 15.2 % (11.5-14.5); RED CELL DISTRIBUTION WIDTH SD 56.1 fL (36.4-46.3); WHITE BLOOD COUNT 3.93 K/uL (4.8-10.8)
[2017-07-21 05:26] LABS: PTT PATIENT 42.7 SECONDS (21.0-31.0)
[2017-07-21] MEDS ORDERED: HEPARIN IV BOLUS 2,000 UNIT in SYRINGE 0 ML IV ONE (06:00)
[2017-07-21] MEDS: ALBUTEROL HFA 8 GM INHALER INH SCH ×4 (07:34→20:41)
[2017-07-21] MEDS: VENLAFAXINE HCL 50 MG TAB PO SCH ×2 (07:35→20:41)
[2017-07-21] MEDS: SUCRALFATE 1 GM TAB PO SCH ×4 (07:35→20:40)
[2017-07-21] MEDS: LANSOPRAZOLE SOLUTAB 30 MG PO SCH ×2 (07:35→20:41)
[2017-07-21] MEDS: ATORVASTATIN 20 MG TAB PO SCH (07:35)
[2017-07-21] MEDS: GABAPENTIN 100 MG CAP PO SCH ×2 (07:35→17:00)
--- NOTE | 2017-07-21 07:58 | CARDIOLOGY CONSULTATION ---
DATE OF CONSULTATION: 07/20/2017 REFERRING PHYSICIAN: Dr. Mert Mosquera. REASON FOR CONSULTATION: Elevated troponin. CHIEF COMPLAINT ON ADMISSION: Unresponsiveness. HISTORY OF PRESENT ILLNESS: Ms. Carty is a 57-year-old female who presented to the Emergency Department with loss of consciousness, unresponsiveness, and confusion. The patient had been driving her family member to a doctor's appointment. The patient was then found unresponsive in her vehicle. She was given intranasal Versed by the EMS due to potential seizure activity. The patient recently prescribed trazodone and baclofen. The patient does not recall the events surrounding her unresponsive episode. There is a reported episode of dry heaving and retching. There is also hominy-colored stools reported in the ER with heme positivity per lab testing. The patient states she drank Raspberry Crystal Light, which she believes discolored her stool. Her hemoglobin has remained stable. There are no signs/symptoms of ongoing blood loss currently. The patient denies any chest discomfort or unusual shortness of breath. Initial ECG unremarkable; however, the patient's ECG today demonstrates lateral T-wave abnormality. Her resting 2D transthoracic echo demonstrates a focal mid inferior and mid posterior lateral wall motion abnormality. Currently, asymptomatic. Offers no other complaints at this time. REVIEW OF SYSTEMS: The pertinent positives noted above. A comprehensive 10-system review is otherwise negative. PAST MEDICAL HISTORY: 1. Gastric bypass. 2. Anxiety disorder. 3. Diastolic heart failure. 4. Depression. 5. Dyslipidemia. 6. Fibromyalgia. 7. GERD. 8. Sleep disorder. 9. Osteoarthritis. 10. Restless legs syndrome. PAST SURGICAL HISTORY: 1. Gastric bypass. 2. Arthroscopic knee surgery. 3. Appendectomy. 4. Bronchoscopy. 5. EGD. 6. Cholecystectomy. 7. Repair of paraesophageal diaphragmatic hernia. FAMILY HISTORY: She is adopted. Family history is unknown. SOCIAL HISTORY: Former tobacco abuse. Drug screen positive for benzodiazepines. Previously noted marijuana use. CURRENT OUTPATIENT MEDICATIONS: 1. Albuterol inhaler. 2. Baclofen 5 mg twice daily. 3. Calcium with vitamin D 2 tabs daily. 4. Gabapentin 100 mg b.i.d. 5. Prilosec 20 mg daily. 6. Multivitamin plus iron daily. 7. Carafate 1 gram q.i.d. 8. Trazodone 50 mg at bedtime. 9. Effexor 100 mg b.i.d. 10. Tylenol as needed. 11. Zofran as needed. ALLERGIES: CODEINE, NSAIDS, CLONAZEPAM, HYDROCODONE, HYDROMORPHONE, SULFAMETHOXAZOLE, ASPIRIN (STOMACH IRRITATION), AND CEPHALEXIN. CT angiography of the chest, no acute process of the abdomen or pelvic arterial vasculature, nonobstructive bowel pattern. No acute process of the abdomen and pelvis. CT of the chest, negative thoracic aorta, no pulmonary embolus, lungs are clear. Head CT, no acute intracranial abnormality. LABORATORY DATA: Initial troponin 1.300. Repeat troponin 1.59 with troponin this morning of 0.754. Sodium 142, potassium 4.2, chloride 113, CO2 is 26, BUN is 7, and creatinine 0.72. White blood cell count 4.49, hemoglobin is 11.3, and platelet count is 15.5. Blood gas on admission 7.32/49/316/25/99% on 6 liters. INR of 1.1. White blood cell count 4.49, hemoglobin 11.3, and platelet count is 19. Telemetry demonstrates sinus rhythm. PHYSICAL EXAMINATION: VITAL SIGNS: Temperature 36.7 degrees centigrade, pulse 62 beats per minute and regular, respiratory rate 20 breaths per minute, blood pressure 115/70 and SaO2 is 97% on room air. GENERAL: NAD, awake, alert and oriented x3. HEENT: Her mucous membranes are moist. No scleral icterus. The conjunctivae are pink. NECK: Supple. No JVD. No HJR. No carotid bruit. HEART: Regular with a normal S1 and S2. There is a soft 1/6 mid systolic murmur heard best at the apex. LUNGS: Clear without rales, rhonchi or wheeze. ABDOMEN: Soft and nontender. No rebound or guarding. Normal bowel sounds. EXTREMITIES: Warm and dry. There is no clubbing, cyanosis, or edema. NEUROLOGIC: Demonstrates no focal deficit. Normal Cole's test in the right upper extremity, palpable radial pulse, and femoral pulse 2/4 bilaterally. FINAL IMPRESSION: 1. Non-ST elevation myocardial infarction with inferior posterior wall motion abnormality and lateral T-wave abnormality on ECG this a.m. The patient is without exertional angina currently and presenting with loss of consciousness/syncope. 2. History of gastric bypass, NSAID ALLERGY, and heme positive stool on admission. Hemoglobin remains stable. 3. Change in mental status -- possibly secondary to medication. 4. Hypothermia on admission. 5. Hypokalemia. PLAN AND RECOMMENDATIONS: I had a long discussion with the patient regarding her elevated troponin and new wall motion abnormality on 2D transthoracic echo. We discussed noninvasive versus invasive management and medical therapy. The risks, benefits, and alternatives to cardiac catheterization were discussed. The patient is agreeable to procedure at [facility] and intervention if indicated. I have discussed the case with the hospitalist service. Due her complex gastrointestinal issues including prior gastric bypass and heme positive stools on admission, we will request a gastroenterology consultation for further input regarding dual antiplatelet therapy as well as initiation of intravenous heparin at this time. All questions answered to satisfaction of the patient. I will add statin therapy currently. We will continue to monitor telemetry for any dysrhythmia.
--- NOTE | 2017-07-21 08:15 | Clinical Documentation Query ---
CLINICAL DOCUMENTATION QUERY 57 year old female who presents to the Emergency Room with complaints of constant confusion and unresponsiveness. Patient has +Troponins and focal hypokinesis involving the mid inferior and posterior cotton by echo. In your clinical opinion is this patient being managed for: ( ) NSTEMI ( ) Type 2 TX in setting of hypovolemia and dehydration. ( ) Not Agree ( X ) Other explanation of clinical findings (Please Explain) ( ) Unable to determine (Please Define) ( ) Need to Discuss NSTEMI Ruled out. Cardiac Cath Normal. Mostly stress induced. The medical record reflects the following clinical findings, treatment, and risk factors. Clinical Indicators: As above. Troponin's 1.300, 1.590, 0.754, Treatment: Cardiology consult, Echo, scheduled cardiac cath. Heparin gtt, O2, Risk Factors: Age, hx of tobacco abuse, Please clarify and document your clinical opinion in the progress notes and discharge summary. Terms such as "probable", "suspected", "likely", "questionable", "possible", or "still to be ruled out" are acceptable. IF IN AGREEMENT, YOU MUST DOCUMENT ABOVE DIAGNOSTIC STATEMENT IN DAILY PROGRESS NOTES AND DISCHARGE SUMMARY. This document is not part of the patient's record. Thank You, Lester Malagon, QUINN [phone]
[2017-07-21 08:19] LABS: CALCIUM 8.1 mg/dl (8.5-10.1); CREATININE 0.65 mg/dl (0.60-1.20); POTASSIUM 3.5 mmol/L (3.5-5.1)
[2017-07-21] MEDS ORDERED: ASPIRIN 81 MG ECTAB PO SCH (09:00)
[2017-07-21] MEDS ORDERED: ASPIRIN 81 MG CHEW PO SCH (09:00)
[2017-07-21] MEDS ORDERED: NURSING VERBAL MED ORDER ONE (09:30)
--- NOTE | 2017-07-21 10:28 | Cardiology Follow-Up ---
Subjective General Date of Service: Jul 21, 2017. Pt evaluation today including: conversation w/ patient, physical exam, chart review, lab review, review of studies, conversation w/ product safety consultant, review of inpatient medication list History of Present Illness The patient is a 57 year old female seen in follow-up. No chest discomfort overnight No dysrhythmias on telemetry. Tolerating heparin plus aspirin without evidence of gastrointestinal bleeding. Hemoglobin is stable Patient offers no complaints at this time. Allergies Coded Allergies: Codeine (Verified Allergy, Intermediate, DIARRHEA/RASH,TOLERATES PERCOCET , 07/18/17) TOLERATES PERCOCET NSAIDs (Verified Allergy, Unknown, UNKNOWN, 07/18/17) Clonazepam (Verified Adverse Reaction, Intermediate, "PASS OUT", 07/18/17) Hydrocodone (Verified Adverse Reaction, Intermediate, OVER SEDATION, ) Hydromorphone (Verified Adverse Reaction, Intermediate, weakness,sweating , 07/18/17) Sulfamethoxazole w/Trimethoprim (Verified Adverse Reaction, Intermediate, DELIRIUM, 07/18/17) pt devoped invontary muscle spasm ; Aspirin (Verified Adverse Reaction, Mild, STOMACH IRRITATION, 07/18/17) Cephalexin (Verified Adverse Reaction, Mild, GI SYMPTOMS, 07/18/17) UPSET STOMACH Social History Smoking Status: Former Smoker Hx Tobacco Use In Past Year?: No Hx Alcohol Use - Type And Amou: No Hx Substance Use - Type And Am: No Problem List Medical Problems: (1) Abdominal pain Status: Acute (2) Altered mental status Status: Acute (3) Altered mental status Status: Acute (4) Cellulitis Status: Acute (5) Dog bite Status: Acute (6) Drug overdose Status: Acute (7) Elevated troponin Status: Acute (8) Elevated troponin Status: Acute (9) Excessive sleepiness Status: Acute (10) Fall Status: Acute (11) Gastritis Status: Acute (12) GI bleed Status: Acute (13) Hypothermia Status: Acute (14) Marijuana abuse Status: Acute (15) Medication reaction Status: Acute (16) Muscle spasm Status: Acute (17) Nausea Status: Acute (18) Noncompliance with medication regimen Status: Acute (19) Polysubstance abuse Status: Acute (20) Respiratory acidosis Status: Acute (21) Respiratory failure Status: Acute (22) Seizure-like activity Status: Acute (23) Suicidal ideation Status: Acute (24) Vomiting Status: Acute Social History Problems: (1) History of gastric bypass Status: Acute Review of Systems Respiratory: No cough, No wheezing, No shortness of breath, No dyspnea on exertion, No dyspnea at rest, No hemoptysis Cardiac: No chest pain, No orthopnea, No PND, No edema, No claudication, No palpitations Physical Exam Vital Signs Last Vital Signs Documentation Date Time Temp Pulse Resp B/P (MAP) Pulse Ox O2 Delivery O2 Flow Rate FiO2 07/21/17 08:00 Room Air 07/21/17 07:34 36.6 64 20 125/83 (97) 100 07/19/17 07:54 2.0 Physical Exam Constitutional: General Apperance: heathly-appearing Level of Distress: NAD Ambulation: ambulating normally Head: normocephalic, atraumatic ENMT: normal ENT inspection Neck: supple, trachea midline Lungs: Auscultation: breath sounds normal, no wheezing, no rales/crackles, no rhonchi Cardiovascular: Heart Auscultation: RRR, normal S1, normal S2, no murmurs Peripheral Pulses: Radial Pulse: normal on the right Femoral Pulse: normal on the right Abdomen: Bowel Sounds: normal Inspection & Palpation: soft, non-distended Liver: non-tender Musculoskeletal: normal, normal strength (5/5 throughout) Extremities: no cyanosis, no edema, no clubbing, pertinent finding (Bilateral lower extremity stasis changes) Neurologic: Gait & Station: pertinent finding (No focal motor deficit) Cranial Nerves: grossly intact Assessment and Plan Assessment and Plan FINAL IMPRESSION: 1. NSTEMI with inferior / posterior wall motion abnormality and lateral T-wave abnormality on ECG. 2. History of gastric bypass surgery with prior gastric ulceration -Heme + stool on admission without signs/symptoms of ongoing GI blood loss -Gastroenterology input appreciated 3. Change in mental status -- possibly secondary to medication. 4. Hypothermia on admission. 5. Hypokalemia. PLAN AND RECOMMENDATIONS: Left heart catheterization with coronary angiography. Risks, benefits, and alternatives to cardiac catheterization were discussed. Patient is agreeable to procedure at [facility] and intervention if indicated. Intravenous heparin will be placed on hold at this time. Case discussed with gastroenterology who recommend an approach which minimizes duration of dual antiplatelet therapy, therefore, would recommend bare metal stenting if needed. Laboratory Results Last 24 Hours Test 07/20/17 11:37 07/20/17 18:19 07/21/17 04:59 07/21/17 07:42 White Blood Count 3.62 K/uL 3.93 K/uL Red Blood Count 3.57 M/uL 3.34 M/uL Hemoglobin 11.8 g/dL 11.4 g/dL 11.0 g/dL Hematocrit 36.0 % 35.1 % 33.8 % Mean Corpuscular Volume 100.8 fL 101.2 fL Mean Corpuscular Hemoglobin 33.1 pg 32.9 pg Mean Corpuscular Hemoglobin Concent 32.8 g/dl 32.5 g/dl Platelet Count 198 K/uL 180 K/uL Mean Platelet Volume 9.5 fL 9.5 fL Neutrophils (%) (Auto) 56.9 % 44.6 % Lymphocytes (%) (Auto) 32.6 % 42.2 % Monocytes (%) (Auto) 9.1 % 10.4 % Eosinophils (%) (Auto) 0.8 % 2.3 % Basophils (%) (Auto) 0.3 % 0.5 % Neutrophils # (Auto) 2.06 K/uL 1.75 K/uL Lymphocytes # (Auto) 1.18 K/uL 1.66 K/uL Monocytes # (Auto) 0.33 K/uL 0.41 K/uL Eosinophils # (Auto) 0.03 K/uL 0.09 K/uL Basophils # (Auto) 0.01 K/uL 0.02 K/uL RDW Standard Deviation 55.9 fL 56.1 fL RDW Coefficient of Variation 15.1 % 15.2 % Immature Granulocyte % (Auto) 0.3 % 0.0 % Immature Granulocyte # (Auto) 0.01 K/uL 0.00 K/uL Prothrombin Time 11.0 SECONDS Prothromb Time International Ratio 1.0 Activated Partial Thromboplast Time 27.1 SECONDS 29.5 SECONDS 42.7 SECONDS Partial Thromboplastin Ratio 1.0 1.1 1.6 Sodium Level 142 mmol/L Potassium Level 3.5 mmol/L Chloride Level 109 mmol/L Carbon Dioxide Level 28 mmol/L Anion Gap 5.0 mmol/L Blood Urea Nitrogen 6 mg/dl Creatinine 0.65 mg/dl Est Creatinine Clear Calc Drug Dose 91.9 ml/min Estimated GFR () 114.2 Estimated GFR (Non- 98.6 BUN/Creatinine Ratio 8.6 Random Glucose 82 mg/dl Calcium Level 8.1 mg/dl Magnesium Level 1.8 mg/dl
[2017-07-21] MEDS ORDERED: MIDAZOLAM HCL 1 MG/ML 2ML VIAL ONE (11:06)
[2017-07-21] MEDS ORDERED: NiCARDipine HCL INJ 2.5 MG/ML 10 ML AMP ONE (11:07)
[2017-07-21] MEDS ORDERED: NITROGLYCERIN/D5W 100MCG/ML 20ML SYR ONE (11:07)
[2017-07-21] MEDS ORDERED: HEPARIN SOD (PORCINE) 1000 UNIT/ML 10 ML VIAL ONE (11:07)
[2017-07-21] MEDS ORDERED: FENTANYL CITRATE INJ 50 MCG/1 ML 2 ML VIAL ONE (11:07)
[2017-07-21] MEDS ORDERED: LIDOCAINE HCL 1% 20 ML VIAL ONE (11:20)
--- NOTE | 2017-07-21 11:37 | Pre Sedation Assessment ---
Pre Sedation Assessment General Date of Sedation: Jul 21, 2017. Vital Signs Past 12 Hours Date Time Temp Pulse Resp B/P (MAP) Pulse Ox O2 Delivery O2 Flow Rate FiO2 07/21/17 08:00 Room Air 07/21/17 07:34 36.6 64 20 125/83 (97) 100 Room Air 07/21/17 04:01 36.7 65 16 109/72 (84) 98 Room Air 07/21/17 04:00 Room Air 07/21/17 00:01 Room Air Pre-Sedation Airway Assessment Smoking Status: Former Smoker Oral Cavity: WNL Mallampati Classification: Class II ASA Classification: Class III NPO Status Date of Last Intake of Fluids: Jul 20, 2017 Time of Last Intake of Fluids: 2300 Date of Last Intake of Solids: Jul 20, 2017 Time of Last Intake of Solids: 2200 Procedure Planning Contraindications for Sedation: None Current Medications Reviewed: Yes Notes The planned sedation has been discussed with the patient. Informed Consent was obtained. I have identified the patient, determined the appropriateness of sedation and have assessed the patient immediately prior to the procedure. All medicine(s) and interventions are by my order.
--- NOTE | 2017-07-21 12:01 | Gastrointestinal Consultation ---
Gastrointestinal Consultation Date of Consultation: Jul 21, 2017 Attending Physician: Mert Mosquera Consulting Physician: Jc Adams Reason for Consultation: ? GI bleeding History of Present Illness Patient is a 57 year old female who was brought to ED with unresponsiveness, now cleared. She reports was taking her family member to a doctor's appt, and was cleaning a rug while waiting for appt, then next thing she knew was in ambulance. Per chart review, she was noted to be unresponsive then agitated, given intranasal Versed by EMS. In ED not responding to Narcan and also had drooling, appeared to swallow vomit per RN account. She also was noted to have mucoid mary kay stools, heme positive. She does have hx of substance abuse. Utox + for benzos and marijuana. Imaging studies including CT head, CXR, CTA chest/abd/pelvis grossly normal. GI consulted to discuss antiplatelet use for pt. Her initial labs showed elevated troponin and EKG w ST changes. She had been evaluated by Dr. Leyva ( Cardiology) who planned to perform cardiac cath on her today. Question is whether or not she would be a candidate for bare metal stent with 1 month ASA use vs 1 year of dual anti platelets (ASA + Plavix) in light of possible GI bleed. She is currently on ASA 81mg and Heparin gtt. Pt does have hx of gastric bypass and anastomotic ulcer in 2014. Did have EGD/ Colonoscopy in 02/2017 w/o signs of ulcer recurrence. She does smoke tobacco intermittently. She denies any abd pain, n/v, nor dark tarry stools. Appetite fine. Reports stools may be dark red as she was drinking raspberry crystal light. Her H/H had been stable for several days now. No signs of melena. Past Medical/Surgical History Medical Problems: (1) Abdominal pain Status: Acute (2) Altered mental status Status: Acute (3) Altered mental status Status: Acute (4) Cellulitis Status: Acute (5) Dog bite Status: Acute (6) Drug overdose Status: Acute (7) Elevated troponin Status: Acute (8) Elevated troponin Status: Acute (9) Excessive sleepiness Status: Acute (10) Fall Status: Acute (11) Gastritis Status: Acute (12) GI bleed Status: Acute (13) Hypothermia Status: Acute (14) Marijuana abuse Status: Acute (15) Medication reaction Status: Acute (16) Muscle spasm Status: Acute (17) Nausea Status: Acute (18) Noncompliance with medication regimen Status: Acute (19) Polysubstance abuse Status: Acute (20) Respiratory acidosis Status: Acute (21) Respiratory failure Status: Acute (22) Seizure-like activity Status: Acute (23) Suicidal ideation Status: Acute (24) Vomiting Status: Acute Social History Problems: (1) History of gastric bypass Status: Acute Past Medical History: Mood disorder, GERD, Fibromyalgia, Substance abuse, RLS; as above. Past Surgical History: Gastric bypass, knee surgery, appendectomy, cholecystectomy, hernia repair, shoulder surgery Family History Unobtainable family history due to adoption Unrelated to current admission Social History Smoking Status: Former Smoker Alcohol Use: none Drug Use: none, marijuana Marital Status: Housing Status: lives with significant other Occupation Status: unemployed Allergies Coded Allergies: Codeine (Verified Allergy, Intermediate, DIARRHEA/RASH,TOLERATES PERCOCET , 07/18/17) TOLERATES PERCOCET NSAIDs (Verified Allergy, Unknown, UNKNOWN, 07/18/17) Clonazepam (Verified Adverse Reaction, Intermediate, "PASS OUT", 07/18/17) Hydrocodone (Verified Adverse Reaction, Intermediate, OVER SEDATION, ) Hydromorphone (Verified Adverse Reaction, Intermediate, weakness,sweating , 07/18/17) Sulfamethoxazole w/Trimethoprim (Verified Adverse Reaction, Intermediate, DELIRIUM, 07/18/17) pt devoped invontary muscle spasm ; Aspirin (Verified Adverse Reaction, Mild, STOMACH IRRITATION, 07/18/17) Cephalexin (Verified Adverse Reaction, Mild, GI SYMPTOMS, 07/18/17) UPSET STOMACH Current Medications Home Meds and Scripts Medications Dose Route/Sig Max Daily Dose Days Date Category Dose Instructions Trazodone (Trazodone HCl) 50 Mg Tab 50 Mg PO HS 07/18/17 Reported Gabapentin 100 Mg Cap 100 Mg PO BID 07/18/17 Reported Opurity Calcium Citr... 300-20-200 mg-mg-Unit (Calcium-Magnesium W/ Vitamin D) 1 Chw Chw 2 Tabs PO QAM 07/18/17 Reported Proair Respiclick (Albuterol Sulfate) 108 Mcg/Act Aer 2 Puffs INH QID 07/18/17 Reported D 2000 (Cholecalciferol) 2,000 Unit Tab 2,000 Units PO DAILY 01/25/17 Reported Effexor (Venlafaxine Hcl) 100 Mg Tab 100 Mg PO BID 01/24/17 Reported Baclofen 10 Mg Tab 5 Mg PO BID 01/24/17 Reported 1/2 TAB BID. Sucralfate 1 Gm Tab 1 Gm PO QID 01/24/17 Reported TAKE THIS MEDICATION 30 MINUTES BEFORE MEALS AND BEDTIME Tylenol Pm (Diphenhydramine-Acetaminophen) 1 Tab Tab 1 Tab PO HS PRN 11/26/16 Reported Zofran (Ondansetron Hcl) 4 Mg Tab 4 Mg PO Q6 PRN 09/07/16 Reported Cyanocobalamin 1,000 Mcg/Ml Inj 1,000 Mcg IM [id number] 06/19/16 Reported Flintstones Plus Iron (Pediatric Multiple Vitamins W/) 1 Chw Chw 2 Tabs PO QAM 03/17/16 Reported Prilosec (Omeprazole) 20 Mg Cap 20 Mg PO DAILY 12/06/13 Reported Review of Systems Constitutional: No fever, No chills Respiratory: No cough, No shortness of breath Cardiac: No chest pain Abdomen: No pain, No nausea, No vomiting, No GI bleeding Neuro: + see HPI Physical Exam Date Time Temp Pulse Resp B/P (MAP) Pulse Ox O2 Delivery O2 Flow Rate FiO2 07/21/17 08:00 Room Air 07/21/17 07:34 36.6 64 20 125/83 (97) 100 Room Air 07/21/17 04:01 36.7 65 16 109/72 (84) 98 Room Air 07/21/17 04:00 Room Air 07/21/17 00:01 Room Air 07/20/17 23:27 36.8 68 16 99/67 (78) 99 Room Air 07/20/17 20:00 Room Air 07/20/17 19:17 36.9 78 18 131/88 (102) 96 Room Air 07/20/17 16:00 Room Air 07/20/17 15:00 36.9 72 18 119/78 (92) 99 Room Air 07/20/17 12:00 Room Air General Appearance: WD/WN, no apparent distress Eyes: normal inspection, PERRL, EOMI Neck: supple, no JVD, trachea midline Respiratory/Chest: normal breath sounds, no respiratory distress, no accessory muscle use Cardiovascular: regular rate, rhythm, no gallop, no murmur Abdomen: normal bowel sounds, non tender, soft Extremities: normal inspection, no pedal edema, no calf tenderness Neurologic/Psych: alert, normal mood/affect, oriented x 3 Skin: normal color, no jaundice, no rash Laboratory Results Last 24 Hours Test 07/20/17 18:19 07/21/17 04:59 07/21/17 07:42 Hemoglobin 11.4 g/dL 11.0 g/dL Hematocrit 35.1 % 33.8 % Activated Partial Thromboplast Time 29.5 SECONDS 42.7 SECONDS Partial Thromboplastin Ratio 1.1 1.6 White Blood Count 3.93 K/uL Red Blood Count 3.34 M/uL Mean Corpuscular Volume 101.2 fL Mean Corpuscular Hemoglobin 32.9 pg Mean Corpuscular Hemoglobin Concent 32.5 g/dl Platelet Count 180 K/uL Mean Platelet Volume 9.5 fL Neutrophils (%) (Auto) 44.6 % Lymphocytes (%) (Auto) 42.2 % Monocytes (%) (Auto) 10.4 % Eosinophils (%) (Auto) 2.3 % Basophils (%) (Auto) 0.5 % Neutrophils # (Auto) 1.75 K/uL Lymphocytes # (Auto) 1.66 K/uL Monocytes # (Auto) 0.41 K/uL Eosinophils # (Auto) 0.09 K/uL Basophils # (Auto) 0.02 K/uL RDW Standard Deviation 56.1 fL RDW Coefficient of Variation 15.2 % Immature Granulocyte % (Auto) 0.0 % Immature Granulocyte # (Auto) 0.00 K/uL Sodium Level 142 mmol/L Potassium Level 3.5 mmol/L Chloride Level 109 mmol/L Carbon Dioxide Level 28 mmol/L Anion Gap 5.0 mmol/L Blood Urea Nitrogen 6 mg/dl Creatinine 0.65 mg/dl Est Creatinine Clear Calc Drug Dose 91.9 ml/min Estimated GFR () 114.2 Estimated GFR (Non- 98.6 BUN/Creatinine Ratio 8.6 Random Glucose 82 mg/dl Calcium Level 8.1 mg/dl Magnesium Level 1.8 mg/dl Impression Patient is a 57 year old female admitted for unresponsiveness, confusion/ agitation currently resolved. Found to have elevated troponin w ST changes in EKG on admission currently going to get cardiac cath. On admission was noted to have mary kay stool, heme positive. Though since then no s/s of GI bleeding, H/ H stable. She did have hx of gastric bypass w anastomosis ulcer in 2015, none seen in repeat EGD in 2017. She smokes tobacco intermittently - Discussed case with Dr. Adams (current GI attending) and Dr. Leyva ( Cardiology): given her gastric ulcer recurrence risk, would prefer cardiac med regimen which would limit use of ASA. Per Dr. Leyva, would likely then use bare metal stent if indicated from cath exam and use ASA x 1 month. Would recommend placing pt on PPI BID dosing and also encourage pt to quit tobacco use , avoid NSAIDs. - No indication currently to repeat EGD eval. - Will sign off; call if new question/concerns arise. I performed a history and physical examination of the patient. I have discussed the patient's case, impression and plan with ROYCE Becerra. Her note reflects my findings and plan. Patient is at high risk for anastomotic ulcer disease given gastric bypass. She needs to be on BID PPI indefinitely if put on ASA and or blood thinners. Jc Adams MD
[2017-07-21] MEDS ORDERED: SODIUM CHLORIDE 0.9% 1000ML 250 ML IV PRN (12:58)
[2017-07-21] MEDS ORDERED: ACETAMINOPHEN 325 MG TAB PO PRN (13:00)
[2017-07-21] MEDS ORDERED: ONDANSETRON INJ 2 MG/ML 2 ML VIAL IV PRN (13:00)
--- NOTE | 2017-07-21 13:06 | Post Sedation Assessment ---
Post Sedation Assessment General Date of Sedation Jul 21, 2017. Vital Signs: Vital Signs Past 12 Hours Date Time Temp Pulse Resp B/P (MAP) Pulse Ox O2 Delivery O2 Flow Rate FiO2 07/21/17 12:45 61 16 130/86 (101) 100 Room Air 07/21/17 11:05 36.7 65 20 115/79 (91) 98 Room Air 07/21/17 08:00 Room Air 07/21/17 07:34 36.6 64 20 125/83 (97) 100 Room Air 07/21/17 04:01 36.7 65 16 109/72 (84) 98 Room Air 07/21/17 04:00 Room Air Post Procedure Recovery Score Activity: (2) Moves 4 extremities * Respiration: (2) Deep breath/cough Circulation: (2) +/-20% PreAnes Value Consciousness: (2) Fully Awake Oxygen Saturation: (2) > 92% On Room Air Post Anesthesia Score: 10 Discharge Sedation Level of Care: Fast Track Phase II Post Sedation Plan On clinical assessment, the patient appears to have tolerated the sedation without complications. Patient is recovering as anticipated. Patient will continue to be monitored by nursing and may be discharged when sedation discharge criteria are met per below protocol. Upon Completions of procedure and additional 15 minutes continue every 5 minute vital signs and the P.A.R. score; then discharge to a Phase I or Fast Track to Phase II per the following guidelines: * Discharge Patient to appropriate Phase II area if PAR is 8 or greater or return to pre- procedure baseline. The post - procedure orders will be as directed. * If PAR score is less than 8 or not return to pre-procedure baseline then patient will follow Phase I monitoring till PAR is reached for Phase II. The Phase I may be done in procedure room or may call to secure a Phase I area. * If naloxone or flumazenil are used for reversal, hold in Phase I for an additional 60 -120 minutes before discharge to Phase II. Please call the Sedation Physician to re-evaluate and complete post-note for discharge to Phase II area. Do NOT discharge from procedure sedation or Phase 1 until post- sedation evaluation note is complete by procedure /sedation MD Sedation Discharge Instructions to be given to the patient at discharge to home.
--- NOTE | 2017-07-21 13:06 | Cardiac Catheterization ---
Procedure Note Procedure Date Jul 21, 2017. Pre-Procedure Diagnosis Non STEMI Post-Procedure Diagnosis Normal Coronary Arteries, Normal Intracardiac Pressures Procedure(s) Performed Coronary Angiography, Left Heart Cath, Aortography Talent Agent Dr. Leyva [facility] Recruiter(s) [employer] Estimated Blood Loss 15cc Medication(s) Versed, Lidocaine 1% Summary of Findings Normal coronary arteries Hemodynamics Rest Ao: 118/65/88 Final Ao: 128/64/94 LV: 125/8/13 Recommendations Medical therapy and/or Counseling Specimens None Radiation Exposure (mGy) 959 Contrast (mls) 120 Anesthesia Moderate sedation. Start 1138. [id number] Procedural Complication(s) Small right groin hematoma Disposition PCU ACC Data Cardiac Status Clinical evaluation leading to the procedure CAD Presntation: Non STEMI Anginal Classification: No symptoms Heart Failure: No Cardiogenic Shock w/in 24Hrs: No Cardiac Arrest w/in 24Hrs: No Imaging studies past 6 months: Yes Stress studies past 6 months: No Coronary Anatomy Dominant: Right Left Main (% Stenosis): Normal LAD (% Stenosis): Normal D1 (% Stenosis): Normal D2 (% Stenosis): Normal D3 (% Stenosis): Normal Circumflex (% Stenosis): Normal OM1 (% Stenosis): Normal RCA (% Stenosis): Normal R PDA (% Stenosis): Normal R PL1 (% Stenosis): Normal R PL2 (% Stenosis): Normal AM (% Stenosis): Normal Aortography Aortic Regurgitation: None Diagnostic Status: Urgent Closure Device Percutaneous Entry Location: Femoral Closure Device: Mynx Recommendations: Medical therapy and/or Counseling Intraprocedure Events Significant Dissection: No Perforation: No
--- NOTE | 2017-07-21 20:03 | Progress Note ---
Internal Med Progress Note Date of Service: Jul 21, 2017. Provider Documentation: SUBJECTIVE: alert and awake and resting comfortably no sob or chest pain afebrile s/p cardiac cath hemodynamics stable OBJECTIVE: Vital Signs-as noted below Exam: General-alert and oriented. ENT-Normal hearing Neck-no neck masses Lungs-cta b/l no wheezing no crackles present Heart-S1 and S2 heard regular rate and rhythm no murmurs Abdomen-Soft bowel sounds present non tender no distension Extremities-no edema no erythema Neuro-alert and awake moves extremities non focal Lab data as noted below. ASSESSMENT & PLAN: 1. Unresponsiveness likely secondary to hypotension secondary to hypovolemia, clinical dehydration. possible drug overdose/medication interaction (patient on multiple neuro- psychotropic meds) Encephalopathy from polypharmacy from centrally acting meds? ct head negative cxr negative cta chest and abdomen/pelvis unremarkable lactic acid normal on empiric Unasyn which is stopped now currently awake and oriented continue to monitor in tele echo showed mild wall motion abnormality and cardio planing for cardiac cath s/p cardiac cath and was clean 2. Troponin elevation ekg unremarkable asymptomatic currently echo shows focal hypokinesis involving the mid inferior and posterior cotton and cardiology planning for cardiac cath started on iv heparin and aspirin -stopped as cath was clean 3. Lower gastrointestinal bleed, rule out Clostridium difficile hemepositive stool. hx of bariatric surgery hemoglobin stable for now. on PPI consulted GI for further evaluation as patient may need antiplatelets on discharge for CAD. possible egd in am after GI evaluation currently started on iv heparin and aspirin for CAD. Will stop if there is obvious bleeding stable 4. mood disorder, unknown status.restart Effexor 5. Fibromyalgia as per records. 6. Past tobacco abuse. 7. Hypokalemia secondary to emesis. replaced DVT PROPHYLAXIS scds DISPOSITION monitor in tele possible d/c in am Vital Signs: Date Time Temp Pulse Resp B/P (MAP) Pulse Ox O2 Delivery O2 Flow Rate FiO2 07/21/17 19:12 36.8 75 18 119/80 (93) 99 Room Air 07/21/17 16:45 36.7 78 18 128/78 (95) 07/21/17 16:00 Room Air 07/21/17 15:45 36.7 75 20 134/84 (101) 100 Room Air 07/21/17 15:15 69 20 128/78 (95) 100 Room Air 07/21/17 14:45 36.5 74 20 135/88 (104) 99 Room Air 07/21/17 14:15 91 18 130/82 (98) 99 Room Air 07/21/17 14:00 36.6 90 18 140/89 (106) 100 Room Air 07/21/17 13:45 87 16 126/81 (96) 100 Room Air 07/21/17 13:30 36.6 63 18 124/82 (96) 100 Room Air 07/21/17 13:15 Room Air 07/21/17 13:15 36.7 60 18 126/82 (97) 97 Room Air 07/21/17 13:00 67 16 132/83 (99) 100 Room Air 07/21/17 12:45 61 16 130/86 (101) 100 Room Air 07/21/17 11:05 36.7 65 20 115/79 (91) 98 Room Air 07/21/17 08:00 Room Air 07/21/17 07:34 36.6 64 20 125/83 (97) 100 Room Air 07/21/17 04:01 36.7 65 16 109/72 (84) 98 Room Air 07/21/17 04:00 Room Air 07/21/17 00:01 Room Air 07/20/17 23:27 36.8 68 16 99/67 (78) 99 Room Air Lab Results: Results Past 24 Hours Test 07/21/17 04:59 07/21/17 07:42 Range/Units White Blood Count 3.93 4.8-10.8 K/uL Red Blood Count 3.34 4.2-5.4 M/uL Hemoglobin 11.0 12.0-16.0 g/dL Hematocrit 33.8 37-47 % Mean Corpuscular Volume 101.2 80-100 fL Mean Corpuscular Hemoglobin 32.9 25-34 pg Mean Corpuscular Hemoglobin Concent 32.5 32-36 g/dl Platelet Count 180 130-400 K/uL Mean Platelet Volume 9.5 7.4-10.4 fL Neutrophils (%) (Auto) 44.6 % Lymphocytes (%) (Auto) 42.2 % Monocytes (%) (Auto) 10.4 % Eosinophils (%) (Auto) 2.3 % Basophils (%) (Auto) 0.5 % Neutrophils # (Auto) 1.75 1.4-6.5 K/uL Lymphocytes # (Auto) 1.66 1.2-3.4 K/uL Monocytes # (Auto) 0.41 0.11-0.59 K/uL Eosinophils # (Auto) 0.09 0-0.5 K/uL Basophils # (Auto) 0.02 0-0.2 K/uL RDW Standard Deviation 56.1 36.4-46.3 fL RDW Coefficient of Variation 15.2 11.5-14.5 % Immature Granulocyte % (Auto) 0.0 % Immature Granulocyte # (Auto) 0.00 0.00-0.02 K/uL Activated Partial Thromboplast Time 42.7 21.0-31.0 SECONDS Partial Thromboplastin Ratio 1.6 Sodium Level 142 136-145 mmol/L Potassium Level 3.5 3.5-5.1 mmol/L Chloride Level 109 98-107 mmol/L Carbon Dioxide Level 28 21-32 mmol/L Anion Gap 5.0 3-11 mmol/L Blood Urea Nitrogen 6 7-18 mg/dl Creatinine 0.65 0.60-1.20 mg/dl Est Creatinine Clear Calc Drug Dose 91.9 ml/min Estimated GFR () 114.2 Estimated GFR (Non- 98.6 BUN/Creatinine Ratio 8.6 10-20 Random Glucose 82 70-99 mg/dl Calcium Level 8.1 8.5-10.1 mg/dl Magnesium Level 1.8 1.8-2.4 mg/dl
[2017-07-22 00:03] VITALS: BP 105/68; PULSE 79; TEMP 36.3; O2SAT 98
[2017-07-22] MEDS ORDERED: hydrOXYzine HCL 10 MG TAB PO STA (02:32)
[2017-07-22 04:03] VITALS: BP 105/71; PULSE 74; TEMP 37; O2SAT 97
--- NOTE | 2017-07-22 04:50 | Clinical Documentation Query ---
CLINICAL DOCUMENTATION QUERY 57 year old female who presents to the Emergency Room with complaints of constant confusion and unresponsiveness. Patient has +Troponins and focal hypokinesis involving the mid inferior and posterior cotton by echo. Clean cardiac cath. In your clinical opinion is this patient being managed for: ( ) Type 2 WA in setting of hypovolemia and dehydration. ( ) Not Agree ( ) Other explanation of clinical findings (Please Explain) ( ) Unable to determine (Please Define) ( ) Need to Discuss The medical record reflects the following clinical findings, treatment, and risk factors. Clinical Indicators: As above. Troponin's 1.300, 1.590, 0.754, Cardiac cath was clean. Treatment: Cardiology consult, Echo, scheduled cardiac cath. Heparin gtt, O2, Risk Factors: Age, hx of tobacco abuse, Please clarify and document your clinical opinion in the progress notes and discharge summary. Terms such as "probable", "suspected", "likely", "questionable", "possible", or "still to be ruled out" are acceptable. IF IN AGREEMENT, YOU MUST DOCUMENT ABOVE DIAGNOSTIC STATEMENT IN DAILY PROGRESS NOTES AND DISCHARGE SUMMARY. This document is not part of the patient's record. Thank You, Lester Malagon, RN [phone]
[2017-07-22 06:46] LABS: BASO % 0.4 %; BASO ABS # 0.02 K/uL (0-0.2); EOS % 2.4 %; EOS ABS # 0.12 K/uL (0-0.5); HEMATOCRIT 33.9 % (37-47); LYMPH % 33.3 %; LYMPH ABS # 1.68 K/uL (1.2-3.4); MEAN CELL VOLUME 100.6 fL (80-100); MEAN CORPUSCULAR HEMOGLOBIN 32.6 pg (25-34); MEAN CORPUSCULAR HGB CONC 32.4 g/dl (32-36); MEAN PLATELET VOLUME 9.9 fL (7.4-10.4); MONO % 8.5 %; MONO ABS # 0.43 K/uL (0.11-0.59); NEUT % 55.4 %; NEUT ABS # 2.79 K/uL (1.4-6.5); PLATELET COUNT 185 K/uL (130-400); RED CELL DISTRIBUTION WIDTH CV 15.5 % (11.5-14.5); RED CELL DISTRIBUTION WIDTH SD 56.9 fL (36.4-46.3); WHITE BLOOD COUNT 5.04 K/uL (4.8-10.8)
[2017-07-22 06:55] LABS: PTT PATIENT 26.9 SECONDS (21.0-31.0)
[2017-07-22 07:25] LABS: CALCIUM 7.7 mg/dl (8.5-10.1); CREATININE 0.6 mg/dl (0.60-1.20); POTASSIUM 3.8 mmol/L (3.5-5.1)
[2017-07-22 07:43] VITALS: BP 114/76; PULSE 70; TEMP 36.9; O2SAT 99
[2017-07-22] MEDS: LANSOPRAZOLE SOLUTAB 30 MG PO SCH (08:43)
[2017-07-22] MEDS: SUCRALFATE 1 GM TAB PO SCH ×2 (08:44→13:31)
[2017-07-22] MEDS: ATORVASTATIN 20 MG TAB PO SCH (08:44)
[2017-07-22] MEDS: VENLAFAXINE HCL 50 MG TAB PO SCH (08:44)
[2017-07-22] MEDS: GABAPENTIN 100 MG CAP PO SCH (08:44)
[2017-07-22] MEDS: ALBUTEROL HFA 8 GM INHALER INH SCH ×2 (09:00→13:00)
--- NOTE | 2017-07-22 11:50 | Progress Note ---
Internal Med Progress Note Date of Service: Jul 22, 2017. Provider Documentation: SUBJECTIVE: alert and awake denies chest pain or sob afebrile no nausea ok to go home OBJECTIVE: Vital Signs-as noted below Exam: General-alert and oriented. ENT-Normal hearing Neck-no neck masses Lungs-cta b/l no wheezing no crackles present Heart-S1 and S2 heard regular rate and rhythm no murmurs Abdomen-Soft bowel sounds present non tender no distension Extremities-no edema no erythema Neuro-alert and awake moves extremities non focal Lab data as noted below. ASSESSMENT & PLAN: 1. Unresponsiveness likely secondary to hypotension secondary to hypovolemia, clinical dehydration. possible drug overdose/medication interaction (patient on multiple neuro- psychotropic meds) Encephalopathy from polypharmacy from centrally acting meds? ct head negative cxr negative cta chest and abdomen/pelvis unremarkable lactic acid normal on empiric Unasyn which is stopped now currently awake and oriented continue to monitor in tele echo showed mild wall motion abnormality and cardio planing for cardiac cath s/p cardiac cath and was clean will stop baclofen, trazodone at discharge. f/u with pcp. 2. Troponin elevation NSTEMI ruled out ekg unremarkable asymptomatic currently echo shows focal hypokinesis involving the mid inferior and posterior cotton and cardiology planning for cardiac cath started on iv heparin and aspirin -stopped as cath was clean troponin elevation mostly reactive from unresponsive episode/stress induced 3. Lower gastrointestinal bleed, rule out Clostridium difficile hemepositive stool. hx of bariatric surgery hemoglobin stable for now. on PPI consulted GI for further evaluation as patient may need antiplatelets on discharge for CAD. Gi recommends minimal aspirin usage as high risk of gastric ulcer recurrence and recommends bare metal stent currently started on iv heparin and aspirin for CAD. Will stop if there is obvious bleeding stable. Iv heparin and aspirin stopped as Cardiac cath was normal. 4. mood disorder, unknown status.restart Effexor 5. Fibromyalgia as per records. 6. Past tobacco abuse. 7. Hypokalemia secondary to emesis. replaced Discharged home Vital Signs: Date Time Temp Pulse Resp B/P (MAP) Pulse Ox O2 Delivery O2 Flow Rate FiO2 07/22/17 07:43 36.9 70 22 114/76 (89) 99 Room Air 07/22/17 04:03 37.0 74 16 105/71 (82) 97 Room Air 07/22/17 04:00 Room Air 07/22/17 00:03 36.3 79 18 105/68 (80) 98 Room Air 07/22/17 00:00 Room Air 07/21/17 20:00 Room Air 07/21/17 19:12 36.8 75 18 119/80 (93) 99 Room Air 07/21/17 16:45 36.7 78 18 128/78 (95) 07/21/17 16:00 Room Air 07/21/17 15:45 36.7 75 20 134/84 (101) 100 Room Air 07/21/17 15:15 69 20 128/78 (95) 100 Room Air 07/21/17 14:45 36.5 74 20 135/88 (104) 99 Room Air 07/21/17 14:15 91 18 130/82 (98) 99 Room Air 07/21/17 14:00 36.6 90 18 140/89 (106) 100 Room Air 07/21/17 13:45 87 16 126/81 (96) 100 Room Air 07/21/17 13:30 36.6 63 18 124/82 (96) 100 Room Air 07/21/17 13:15 Room Air 07/21/17 13:15 36.7 60 18 126/82 (97) 97 Room Air 07/21/17 13:00 67 16 132/83 (99) 100 Room Air 07/21/17 12:45 61 16 130/86 (101) 100 Room Air Lab Results: Results Past 24 Hours Test 07/22/17 06:22 Range/Units White Blood Count 5.04 4.8-10.8 K/uL Red Blood Count 3.37 4.2-5.4 M/uL Hemoglobin 11.0 12.0-16.0 g/dL Hematocrit 33.9 37-47 % Mean Corpuscular Volume 100.6 80-100 fL Mean Corpuscular Hemoglobin 32.6 25-34 pg Mean Corpuscular Hemoglobin Concent 32.4 32-36 g/dl Platelet Count 185 130-400 K/uL Mean Platelet Volume 9.9 7.4-10.4 fL Neutrophils (%) (Auto) 55.4 % Lymphocytes (%) (Auto) 33.3 % Monocytes (%) (Auto) 8.5 % Eosinophils (%) (Auto) 2.4 % Basophils (%) (Auto) 0.4 % Neutrophils # (Auto) 2.79 1.4-6.5 K/uL Lymphocytes # (Auto) 1.68 1.2-3.4 K/uL Monocytes # (Auto) 0.43 0.11-0.59 K/uL Eosinophils # (Auto) 0.12 0-0.5 K/uL Basophils # (Auto) 0.02 0-0.2 K/uL RDW Standard Deviation 56.9 36.4-46.3 fL RDW Coefficient of Variation 15.5 11.5-14.5 % Immature Granulocyte % (Auto) 0.0 % Immature Granulocyte # (Auto) 0.00 0.00-0.02 K/uL Activated Partial Thromboplast Time 26.9 21.0-31.0 SECONDS Partial Thromboplastin Ratio 1.0 Sodium Level 142 136-145 mmol/L Potassium Level 3.8 3.5-5.1 mmol/L Chloride Level 110 98-107 mmol/L Carbon Dioxide Level 26 21-32 mmol/L Anion Gap 6.0 3-11 mmol/L Blood Urea Nitrogen 7 7-18 mg/dl Creatinine 0.60 0.60-1.20 mg/dl Est Creatinine Clear Calc Drug Dose 99.3 ml/min Estimated GFR () 117.3 Estimated GFR (Non- 101.2 BUN/Creatinine Ratio 12.3 10-20 Random Glucose 78 70-99 mg/dl Calcium Level 7.7 8.5-10.1 mg/dl Magnesium Level 1.9 1.8-2.4 mg/dl
[2017-07-22 12:01] VITALS: BP 111/76; PULSE 70; TEMP 36.8; O2SAT 98
[2017-07-22] MEDS ORDERED: METOPROLOL SUCC 25MG EXT REL TAB PO ONE (12:58)
--- NOTE | 2017-07-22 13:00 | Cardiology Follow-Up ---
Subjective General Date of Service: Jul 22, 2017. Pt evaluation today including: conversation w/ patient, physical exam, chart review, lab review, review of studies, review of inpatient medication list History of Present Illness The patient is a 57 year old female seen in follow-up Patient feels well from a cardiovascular standpoint Mild right groin ecchymosis. Reports mild tenderness of her right inguinal region. Denies chest pain or shortness of breath. Requesting discharge. Allergies Coded Allergies: Codeine (Verified Allergy, Intermediate, DIARRHEA/RASH,TOLERATES PERCOCET , 07/18/17) TOLERATES PERCOCET NSAIDs (Verified Allergy, Unknown, UNKNOWN, 07/18/17) Clonazepam (Verified Adverse Reaction, Intermediate, "PASS OUT", 07/18/17) Hydrocodone (Verified Adverse Reaction, Intermediate, OVER SEDATION, ) Hydromorphone (Verified Adverse Reaction, Intermediate, weakness,sweating , 07/18/17) Sulfamethoxazole w/Trimethoprim (Verified Adverse Reaction, Intermediate, DELIRIUM, 07/18/17) pt devoped invontary muscle spasm ; Aspirin (Verified Adverse Reaction, Mild, STOMACH IRRITATION, 07/18/17) Cephalexin (Verified Adverse Reaction, Mild, GI SYMPTOMS, 07/18/17) UPSET STOMACH Social History Smoking Status: Former Smoker Hx Tobacco Use In Past Year?: No Hx Alcohol Use - Type And Amou: No Hx Substance Use - Type And Am: No Problem List Medical Problems: (1) Abdominal pain Status: Acute (2) Altered mental status Status: Acute (3) Altered mental status Status: Acute (4) Cellulitis Status: Acute (5) Dog bite Status: Acute (6) Drug overdose Status: Acute (7) Elevated troponin Status: Acute (8) Elevated troponin Status: Acute (9) Excessive sleepiness Status: Acute (10) Fall Status: Acute (11) Gastritis Status: Acute (12) GI bleed Status: Acute (13) Hypothermia Status: Acute (14) Marijuana abuse Status: Acute (15) Medication reaction Status: Acute (16) Muscle spasm Status: Acute (17) Nausea Status: Acute (18) Noncompliance with medication regimen Status: Acute (19) Polysubstance abuse Status: Acute (20) Respiratory acidosis Status: Acute (21) Respiratory failure Status: Acute (22) Seizure-like activity Status: Acute (23) Suicidal ideation Status: Acute (24) Vomiting Status: Acute Social History Problems: (1) History of gastric bypass Status: Acute Review of Systems Respiratory: No cough, No sputum, No wheezing, No shortness of breath, No dyspnea at rest, No hemoptysis Cardiac: No chest pain, No orthopnea, No edema, No palpitations Physical Exam Vital Signs Last Vital Signs Documentation Date Time Temp Pulse Resp B/P (MAP) Pulse Ox O2 Delivery O2 Flow Rate FiO2 07/22/17 12:01 36.8 70 20 111/76 (88) 98 Room Air 07/19/17 07:54 2.0 Physical Exam Constitutional: General Apperance: heathly-appearing Level of Distress: NAD Ambulation: ambulating normally Head: normocephalic, atraumatic ENMT: normal ENT inspection Neck: supple, trachea midline Lungs: Auscultation: breath sounds normal, no wheezing, no rales/crackles, no rhonchi Cardiovascular: Heart Auscultation: RRR, normal S1, normal S2, no murmurs Peripheral Pulses: Radial Pulse: normal on the right Femoral Pulse: normal on the right Abdomen: Bowel Sounds: normal Inspection & Palpation: soft, non-distended Liver: non-tender Musculoskeletal: normal, normal strength (5/5 throughout) Extremities: no cyanosis, no edema, no clubbing, pertinent finding (Right groin ecchymosis. No hematoma.) Neurologic: Gait & Station: pertinent finding (No focal motor deficit) Cranial Nerves: grossly intact Assessment and Plan Assessment and Plan FINAL IMPRESSION: 1. Elevated troponin and abnormal ECG likely related to atypical stress- induced cardiomyopathy/wall motion abnormality. 2. Normal coronary arteries with normal left ventricular end-diastolic pressure per catheterization 07/21/17 3. History of gastric bypass surgery with prior gastric ulceration -Heme + stool on admission without signs/symptoms of ongoing GI blood loss -Gastroenterology input appreciated 4. Change in mental status --resolved ;possibly secondary to medication. PLAN AND RECOMMENDATIONS: Recommend low-dose beta-christie therapy, Toprol-XL 12.5 mg daily and repeat resting 2D transthoracic echo in 6-12 weeks. No further inpatient cardiac testing or intervention at this time. Post cardiac catheterization activity restrictions as listed below: * Do not drive or operate any motorized equipment for the next three days. * Limit stair usage (2 or 3 trips a day only) for the next three days. * Do not lift anything heavier than 10 pounds for the next three days. * Do not engage in vigorous exercise or any sports for the next five days. * You may shower the day after your procedure, but do not immerse the area for three days. Cleanse the site gently with soap and water. SPECIAL CARE INSTRUCTIONS: * You may replace the pressure dressing or band-aid the morning after the procedure. * After your procedure, it is normal to have a small bruise or small lump at the site. Examine your site daily for any change in the bruise or lump, redness, swelling, drainage or numbness. Notify your doctor if any change. BLEEDING: * If there is a small amount of bleeding at the site, lie down and apply firm pressure with a clean cloth for ten minutes. When the bleeding stops, lie quietly keeping the procedure limb straight for six hours. Notify your doctor as soon as possible. * If the bleeding does not stop after ten minutes or if there is a large amount of bleeding or spurting, call 911 immediately. Continue to lie down and hold firm pressure until help arrives. SKIN IRRITATION: * You may experience some redness and/or swelling in the area where radiation was administered. If any skin irritation occurs, please contact your family physician. FOLLOW UP VISIT: Keep any scheduled doctor appointments. Laboratory Results Last 24 Hours Test 07/22/17 06:22 White Blood Count 5.04 K/uL Red Blood Count 3.37 M/uL Hemoglobin 11.0 g/dL Hematocrit 33.9 % Mean Corpuscular Volume 100.6 fL Mean Corpuscular Hemoglobin 32.6 pg Mean Corpuscular Hemoglobin Concent 32.4 g/dl Platelet Count 185 K/uL Mean Platelet Volume 9.9 fL Neutrophils (%) (Auto) 55.4 % Lymphocytes (%) (Auto) 33.3 % Monocytes (%) (Auto) 8.5 % Eosinophils (%) (Auto) 2.4 % Basophils (%) (Auto) 0.4 % Neutrophils # (Auto) 2.79 K/uL Lymphocytes # (Auto) 1.68 K/uL Monocytes # (Auto) 0.43 K/uL Eosinophils # (Auto) 0.12 K/uL Basophils # (Auto) 0.02 K/uL RDW Standard Deviation 56.9 fL RDW Coefficient of Variation 15.5 % Immature Granulocyte % (Auto) 0.0 % Immature Granulocyte # (Auto) 0.00 K/uL Activated Partial Thromboplast Time 26.9 SECONDS Partial Thromboplastin Ratio 1.0 Sodium Level 142 mmol/L Potassium Level 3.8 mmol/L Chloride Level 110 mmol/L Carbon Dioxide Level 26 mmol/L Anion Gap 6.0 mmol/L Blood Urea Nitrogen 7 mg/dl Creatinine 0.60 mg/dl Est Creatinine Clear Calc Drug Dose 99.3 ml/min Estimated GFR () 117.3 Estimated GFR (Non- 101.2 BUN/Creatinine Ratio 12.3 Random Glucose 78 mg/dl Calcium Level 7.7 mg/dl Magnesium Level 1.9 mg/dl
[2017-07-22] MEDS ORDERED: TPRSR25 PO (13:42)
--- NOTE | 2017-07-22 13:45 | Discharge Instructions ---
Discharge Instructions Date of Service Jul 22, 2017. Admission Reason for Admission: Hypotension; Hypothermia Discharge Discharge Diagnosis / Problem: unesponsive episode, Elevated troponin. Stress induced Discharge Goals Goal(s): Decrease discomfort, Improve function Activity Recommendations Activity Limitations: resume your previous activity . Instructions / Follow-Up Instructions / Follow-Up FOLLOWUP WITH FAMILY DOCTOR ON July AT 2:45PM CARDIOLOGY RECOMMENDATIONS: PLAN AND RECOMMENDATIONS: Recommend low-dose beta-christie therapy, Toprol-XL 12.5 mg daily and repeat resting 2D transthoracic echo in 6-12 weeks. No further inpatient cardiac testing or intervention at this time. Post cardiac catheterization activity restrictions as listed below: * Do not drive or operate any motorized equipment for the next three days. * Limit stair usage (2 or 3 trips a day only) for the next three days. * Do not lift anything heavier than 10 pounds for the next three days. * Do not engage in vigorous exercise or any sports for the next five days. * You may shower the day after your procedure, but do not immerse the area for three days. Cleanse the site gently with soap and water. SPECIAL CARE INSTRUCTIONS: * You may replace the pressure dressing or band-aid the morning after the procedure. * After your procedure, it is normal to have a small bruise or small lump at the site. Examine your site daily for any change in the bruise or lump, redness, swelling, drainage or numbness. Notify your doctor if any change. BLEEDING: * If there is a small amount of bleeding at the site, lie down and apply firm pressure with a clean cloth for ten minutes. When the bleeding stops, lie quietly keeping the procedure limb straight for six hours. Notify your doctor as soon as possible. * If the bleeding does not stop after ten minutes or if there is a large amount of bleeding or spurting, call 911 immediately. Continue to lie down and hold firm pressure until help arrives. SKIN IRRITATION: * You may experience some redness and/or swelling in the area where radiation was administered. If any skin irritation occurs, please contact your family physician. FOLLOW UP VISIT: Keep any scheduled doctor appointments. Current Hospital Diet Patient's current hospital diet: Regular Diet, AHA Diet (Heart Healthy) Discharge Diet Recommended Diet: AHA Diet (Heart Healthy) Pending Studies Studies pending at discharge: no Medical Emergencies . Who to Call and When: Medical Emergencies: If at any time you feel your situation is an emergency, please call 911 immediately. . Non-Emergent Contact Non-Emergency issues call your: Primary Care Provider . . "Provider Documentation" section prepared by Mert Mosquera. .
[2017-07-22 13:48] VITALS: BP 111/76; PULSE 70; TEMP 36.8; O2SAT 98
--- NOTE | 2017-07-22 13:53 | Discharge Summary ---
Discharge Summary Date of Service Jul 22, 2017. Discharge Summary Admission Date: Jul 18, 2017 at 19:41 Discharge Date: Jul 22, 2017 Discharge Disposition: Home Principal Diagnosis: unresponsive episode elevated troponin-mostly stress induced Secondary Diagnoses/Problems: mood disorder, gastric bypass, reflux, fibromyalgia, substance abuse as per records, restless leg syndrome, past tobacco abuse. Procedures: CT HEAD: No acute intracranial abnormality. CTA CHEST: 1. Negative thoracic aorta. 2. No evidence for pulmonary embolus. 3. Lungs are clear. CTA ABD/PELVIS: 1. No acute process of the abdominal and pelvic arterial vasculature. 2. Nonobstructive bowel pattern. 3. No acute process of the abdomen or pelvis ECHO: Left ventricular systolic function is normal. * Ejection Fraction = 55-60%. * There is an area of focal hypokinesis involving the mid inferior and posterior cotton. * There is mild mitral regurgitation. * Grade I diastolic dysfunction, (abnormal relaxation pattern). S/P CARDIAC CATH Consultations: CARDIOLOGY Medication Reconciliation New Medications: Metoprolol Succinate (Metoprolol Succinate ER) 25 Mg Tabcr 12.5 MG PO QAM, #30 1 Refill Continued Medications: Albuterol Sulfate (Proair Respiclick) 108 Mcg/Act Aer 2 PUFFS INH QID Calcium-Magnesium W/ Vitamin D (Opurity Calcium Citr... 300-20-200 mg-mg-Unit) 1 Chw Chw 2 TABS PO QAM Cholecalciferol (D 2000) 2,000 Unit Tab 2000 UNITS PO DAILY Cyanocobalamin (Cyanocobalamin) 1,000 Mcg/Ml Inj 1000 MCG IM [id number] Gabapentin (Gabapentin) 100 Mg Cap 100 MG PO BID Omeprazole (Prilosec) 20 Mg Cap 20 MG PO DAILY Ondansetron Hcl (Zofran) 4 Mg Tab 4 MG PO Q6 PRN for Nausea, TAB Pediatric Multiple Vitamins W/ (Flintstones Plus Iron) 1 Chw Chw 2 TABS PO QAM Sucralfate (Sucralfate) 1 Gm Tab 1 GM PO QID TAKE THIS MEDICATION 30 MINUTES BEFORE MEALS AND BEDTIME Venlafaxine Hcl (Effexor) 100 Mg Tab 100 MG PO BID Discontinued Medications: Baclofen (Baclofen) 10 Mg Tab 5 MG PO BID 1/2 TAB BID. Diphenhydramine-Acetaminophen (Tylenol Pm) 1 Tab Tab 1 TAB PO HS PRN for Insomnia Trazodone Hcl (Trazodone) 50 Mg Tab 50 MG PO HS, TAB Admission Information HPI (per Admitting provider): History obtained from ER provider and records. Unable to obtain history from patient secondary to unconscious state. Medical history significant for mood disorder, gastric bypass, reflux, fibromyalgia, substance abuse as per records, restless leg syndrome, past tobacco abuse. Recent confinement last January 2017 for elevated troponin and abdominal pain, no ACS. A 2D echo from that confinement showed EF of 65-70%, diastolic dysfunction. As per records, the patient was noted to have confusion, unresponsiveness today , dry heaving prior to coming to the hospital. While in the car, the patient stretched her legs and went unconscious as per account. Patient later noted to be agitated, given intranasal Versed by EMS because of agitation. At the Emergency Room, the patient noted to be hypothermic, unresponsive. No response to Narcan. Upon return from [place], around 6:45 p.m. the patient ripped off her nonrebreather mask and began dry heaving at the ER. The patient looked to be drooling, appeared to have swallowed vomit as per RN account. Patient noted to have mucoid mary kay colored stool, hemoccult positive. Protonix IV given for possible GI bleed. Physical Exam (per Admitting): VITAL SIGNS: Blood pressure was noted to be 98/70, later 84/60, pulse rate 77, RR 15, temperature 35.2, sats 100 on 6%, later 96 on room air. GENERAL: Noted to be unconscious, no respiratory distress. Looks older than stated age. SKIN: Normal color, warm. HEENT: [place] palpebral conjunctiva. No ptosis. Dry mucosa. NECK: Supple, nontender. CHEST: Decreased effort. Occasional wheeze. HEART: Regular rate and rhythm, no murmur. ABDOMEN: Some distention, nontender. EXTREMITIES: No edema. No gross deformity. No tenderness. NEUROLOGIC: Unconscious. Miotic pupils. Gait and stance not assessed. No facial asymmetry. Hospital Course 1. Unresponsiveness likely secondary to hypotension secondary to hypovolemia, clinical dehydration. possible drug overdose/medication interaction (patient on multiple neuro- psychotropic meds) Encephalopathy from polypharmacy from centrally acting meds? ct head negative cxr negative cta chest and abdomen/pelvis unremarkable lactic acid normal on empiric Unasyn which is stopped now currently awake and oriented continue to monitor in tele echo showed mild wall motion abnormality and cardio planing for cardiac cath s/p cardiac cath and was clean will stop baclofen, trazodone at discharge. f/u with pcp. 2. Troponin elevation NSTEMI ruled out ekg unremarkable asymptomatic currently echo shows focal hypokinesis involving the mid inferior and posterior cotton and cardiology planning for cardiac cath started on iv heparin and aspirin -stopped as cath was clean troponin elevation mostly reactive from unresponsive episode/stress induced CARDIOLOGY ADDED TOPROL XL AND RECOMMENDS REPEAT ECHO IN 6-12 WEEKS 3. Lower gastrointestinal bleed, rule out Clostridium difficile hemepositive stool. hx of bariatric surgery hemoglobin stable for now. on PPI consulted GI for further evaluation as patient may need antiplatelets on discharge for CAD. Gi recommends minimal aspirin usage as high risk of gastric ulcer recurrence and recommends bare metal stent currently started on iv heparin and aspirin for CAD. Will stop if there is obvious bleeding stable. Iv heparin and aspirin stopped as Cardiac cath was normal. 4. mood disorder, unknown status.restart Effexor 5. Fibromyalgia as per records. 6. Past tobacco abuse. 7. Hypokalemia secondary to emesis. replaced Discharged home Total time spent on discharge = 35MINUTES This includes examination of the patient, discharge planning, medication reconciliation, and communication with other providers. Discharge Instructions Discharge Instructions Date of Service Jul 22, 2017. Admission Reason for Admission: Hypotension; Hypothermia Discharge Discharge Diagnosis / Problem: unesponsive episode, Elevated troponin. Stress induced Discharge Goals Goal(s): Decrease discomfort, Improve function Activity Recommendations Activity Limitations: resume your previous activity . Instructions / Follow-Up Instructions / Follow-Up FOLLOWUP WITH FAMILY DOCTOR ON July AT 2:45PM CARDIOLOGY RECOMMENDATIONS: PLAN AND RECOMMENDATIONS: Recommend low-dose beta-christie therapy, Toprol-XL 12.5 mg daily and repeat resting 2D transthoracic echo in 6-12 weeks. No further inpatient cardiac testing or intervention at this time. Post cardiac catheterization activity restrictions as listed below: * Do not drive or operate any motorized equipment for the next three days. * Limit stair usage (2 or 3 trips a day only) for the next three days. * Do not lift anything heavier than 10 pounds for the next three days. * Do not engage in vigorous exercise or any sports for the next five days. * You may shower the day after your procedure, but do not immerse the area for three days. Cleanse the site gently with soap and water. SPECIAL CARE INSTRUCTIONS: * You may replace the pressure dressing or band-aid the morning after the procedure. * After your procedure, it is normal to have a small bruise or small lump at the site. Examine your site daily for any change in the bruise or lump, redness, swelling, drainage or numbness. Notify your doctor if any change. BLEEDING: * If there is a small amount of bleeding at the site, lie down and apply firm pressure with a clean cloth for ten minutes. When the bleeding stops, lie quietly keeping the procedure limb straight for six hours. Notify your doctor as soon as possible. * If the bleeding does not stop after ten minutes or if there is a large amount of bleeding or spurting, call 911 immediately. Continue to lie down and hold firm pressure until help arrives. SKIN IRRITATION: * You may experience some redness and/or swelling in the area where radiation was administered. If any skin irritation occurs, please contact your family physician. FOLLOW UP VISIT: Keep any scheduled doctor appointments. Current Hospital Diet Patient's current hospital diet: Regular Diet, AHA Diet (Heart Healthy) Discharge Diet Recommended Diet: AHA Diet (Heart Healthy) Pending Studies Studies pending at discharge: no Medical Emergencies . Who to Call and When: Medical Emergencies: If at any time you feel your situation is an emergency, please call 911 immediately. . Non-Emergent Contact Non-Emergency issues call your: Primary Care Provider
[2017-07-23] MEDS ORDERED: METOPROLOL SUCC 25MG EXT REL TAB PO SCH (09:00)
== END 2017-07-22 14:11 | disposition home or self-care (01) | DRG 640 ==
LOC: EDBD 15:36 → C.EDC 15:37 → C.2T 19:41 → ENRESERV 20:02 → C.2T 21:45
PROVIDERS: ADMIT Internal Medicine; ATTEND Internal Medicine
PROC: B210YZZ Fluoroscopy of Single Coronary Artery using Other Contrast (ICD-10-PCS; principal; 2017-07-21 11:13)
PROC: 4A023N7 Measurement of Cardiac Sampling and Pressure, Left Heart, Percutaneous Approach (ICD-10-PCS; principal; 2017-07-21 11:13)
DX: E86.0 Dehydration (principal); G93.40 Encephalopathy, unspecified; K92.2 Gastrointestinal hemorrhage, unspecified; I50.40 Unspecified combined systolic (congestive) and diastolic (congestive) heart failure; I51.81 Takotsubo syndrome; Z87.891 Personal history of nicotine dependence; Z88.5 Allergy status to narcotic agent; Z88.2 Allergy status to sulfonamides; Z88.1 Allergy status to other antibiotic agents; F39 Unspecified mood [affective] disorder; Z98.84 Bariatric surgery status; K21.9 Gastro-esophageal reflux disease without esophagitis; M79.7 Fibromyalgia; G25.81 Restless legs syndrome; I95.9 Hypotension, unspecified; E86.1 Hypovolemia; F19.90 Other psychoactive substance use, unspecified, uncomplicated; F12.90 Cannabis use, unspecified, uncomplicated

== ENCOUNTER 2017-07-27 12:59 | Emergency (ER) | payer OTHER ==
[~2017-07-27] VITALS: Ht 154.9 cm; Wt 73.2 kg
[~2017-07-27 12:59] MED LIST changes: -ACET-1138 PO; +ALBU18002 INH; -BUSP-8 PO; +CALC1CHW PO; -CALC1TAB9 PO; -DIPH-437 PO; -LRS10 PO; -LYR100 PO; +NRN100 PO; -OXYC10SO PO; -PREG100C PO; +TPRSR25 PO
[2017-07-27 13:07] VITALS: TEMP 36.7; Ht 154.9 cm; Wt 73.2 kg
[2017-07-27 14:01] LABS: BASO % 1.1 %; BASO ABS # 0.05 K/uL (0-0.2); EOS % 3.6 %; EOS ABS # 0.17 K/uL (0-0.5); HEMATOCRIT 37.6 % (37-47); HEMOGLOBIN 12.4 g/dL (12.0-16.0); IG# 0.01 K/uL (0.00-0.02); LYMPH % 28.3 %; LYMPH ABS # 1.33 K/uL (1.2-3.4); MEAN CELL VOLUME 100.8 fL (80-100); MEAN CORPUSCULAR HEMOGLOBIN 33.2 pg (25-34); MEAN PLATELET VOLUME 9.9 fL (7.4-10.4); MONO % 8.7 %; MONO ABS # 0.41 K/uL (0.11-0.59); NEUT % 58.1 %; NEUT ABS # 2.73 K/uL (1.4-6.5); PLATELET COUNT 245 K/uL (130-400); RED CELL DISTRIBUTION WIDTH CV 15.1 % (11.5-14.5); RED CELL DISTRIBUTION WIDTH SD 55.8 fL (36.4-46.3)
[2017-07-27 14:32] LABS: CALCIUM 8.2 mg/dl (8.5-10.1); CREATININE 0.58 mg/dl (0.60-1.20); POTASSIUM 3.9 mmol/L (3.5-5.1)
--- NOTE | 2017-07-27 14:47 | DIAGNOSTIC IMAGING REPORT ---
ART DOP DUPLEX LWR EXT UNI CLINICAL HISTORY: 57 years-old Female presenting with r groin pain recent cath. dont do whoel leg, history of recent heart catheterization, groin lump and pain. TECHNIQUE: Real-time grayscale and color and spectral Doppler ultrasound imaging of the right lower extremity arteries was performed. Measurements calculated based on NASCET criteria. COMPARISON: None. FINDINGS: Right: Common femoral artery: Patent. No luminal irregularity or evidence of aneurysm/pseudoaneurysm. Other: Adjacent to the patent greater saphenous vein is an ill-defined hypoechoic heterogeneous 2.6 x 1.7 x 3.5 cm collection, which is avascular on color Doppler. This is superficial to the vessels. IMPRESSION: 1. Findings consistent with groin hematoma. No evidence of a pseudoaneurysm. Electronically signed by: Spencer Acuña M.D. 07/27/2017 2:46 PM Dictated Date/Time: 07/27/2017 2:43 PM
[2017-07-27 15:29] VITALS: BP 105/60; PULSE 66; O2SAT 98
--- NOTE | 2017-07-27 18:14 | EMERGENCY ROOM VISIT NOTE ---
History Report prepared by Vernellibmarguerite: Abril Bartholomew Under the Supervision of: Dr. Vamsi iKng D.O. First contact with patient: 13:11 Chief Complaint: BLEEDING Stated Complaint: LARGE LUMP AT HEART CATH SITE IN GROIN Nursing Triage Summary: heart cath last friday. insertion site was right groin. patient states on friday and friday area only had small "pea sized" bump. patient states on friday area to right groin ecchymotic, hard and swollen. patient states she does not take blood thinners. History of Present Illness The patient is a 57 year old female who presents to the Emergency Room with complaints of a worsening lump on her right groin beginning on Friday, six days ago. The patient had a heart catheterization on Friday. She reports a small " pea sized" lump at the catheterization insertion site beginning on Friday. She reports the lump has since gotten larger. She denies any change of lump size since . The patient states she has been putting pressure on the site with minimal relief. Does have mild discomfort on palpation. She notes swelling to her right leg. The patient has a history of a gastric bypass. Pt denies headache, change in vision, fevers, chest pain, shortness of breath, nausea, vomiting, diarrhea, pain with urination, and melena. Source of History: patient Onset: 6 days ago Position: other (groin) Quality: other (lump) Timing: worsening Modifying Factors (Relieving): other (pressure) Associated Symptoms: No chest pain, No SOB, No nausea, No vomiting, No urinary symptoms Review of Systems See HPI for pertinent positives & negatives. A total of 10 systems reviewed and were otherwise negative. Past Medical & Surgical Medical Problems: (1) Anxiety (2) Congestive heart failure, unspecified (3) Depression (4) Dyslipidemia (5) Fibromyalgia (6) GERD (gastroesophageal reflux disease) (7) Hypotension (8) Organic sleep disorder (9) Osteoarthritis (10) Restless legs Surgical Problems: (1) Gastric bypass status for obesity (2) H/O arthroscopic knee surgery (3) Hx of appendectomy (4) S/P bronchoscopy (5) S/p EGD (6) Status post cholecystectomy (7) Status post repair of paraesophageal diaphragmatic hernia Family History Unobtainable family history due to adoption Social History Smoking Status: Current Some Day Smoker Alcohol Use: none Drug Use: none, marijuana Marital Status: Housing Status: lives with significant other Occupation Status: unemployed Current/Historical Medications Scheduled Albuterol Sulfate (Proair Respiclick), 2 PUFFS INH QID Calcium-Magnesium W/ Vitamin D (Opurity Calcium Citr... 300-20-200 mg-mg-Unit), 2 TABS PO QAM Cholecalciferol (D 2000), 2,000 UNITS PO DAILY Cyanocobalamin (Cyanocobalamin), 1,000 MCG IM [id number] Gabapentin (Gabapentin), 100 MG PO BID Metoprolol Succinate (Metoprolol Succinate ER), 12.5 MG PO QAM Omeprazole (Prilosec), 20 MG PO DAILY Pediatric Multiple Vitamins W/ (Flintstones Plus Iron), 2 TABS PO QAM Sucralfate (Sucralfate), 1 GM PO QID Venlafaxine Hcl (Effexor), 100 MG PO BID Scheduled PRN Ondansetron Hcl (Zofran), 4 MG PO Q6 PRN for Nausea Allergies Coded Allergies: Codeine (Verified Allergy, Intermediate, DIARRHEA/RASH,TOLERATES PERCOCET , 07/18/17) TOLERATES PERCOCET NSAIDs (Verified Allergy, Unknown, UNKNOWN, 07/18/17) Clonazepam (Verified Adverse Reaction, Intermediate, "PASS OUT", 07/18/17) Hydrocodone (Verified Adverse Reaction, Intermediate, OVER SEDATION, ) Hydromorphone (Verified Adverse Reaction, Intermediate, weakness,sweating , 07/18/17) Sulfamethoxazole w/Trimethoprim (Verified Adverse Reaction, Intermediate, DELIRIUM, 07/18/17) pt devoped invontary muscle spasm ; Aspirin (Verified Adverse Reaction, Mild, STOMACH IRRITATION, 07/18/17) Cephalexin (Verified Adverse Reaction, Mild, GI SYMPTOMS, 07/18/17) UPSET STOMACH Physical Exam Vital Signs Date Time Temp Pulse Resp B/P (MAP) Pulse Ox O2 Delivery O2 Flow Rate FiO2 07/27/17 15:29 66 16 105/60 98 07/27/17 14:56 65 18 103/53 100 Room Air 07/27/17 13:07 36.7 72 20 109/68 94 Room Air Physical Exam GENERAL: Sitting up in bed, alert, well appearing, well nourished, no distress, non-toxic EYE EXAM: normal conjunctiva. OROPHARYNX: no exudate, no erythema, lips, buccal mucosa, and tongue normal and mucous membranes are moist NECK: supple, no nuchal rigidity, no adenopathy, non-tender LUNGS: Clear to auscultation. Normal chest wall mechanics HEART: no murmurs, S1 normal and S2 normal ABDOMEN: abdomen soft, non-tender, normo-active bowel sounds, no masses, no rebound or guarding. BACK: Back is symmetrical on inspection and there is no deformity, no midline tenderness, no CVA tenderness. SKIN: no rashes and no bruising PELVIS: Firmness over right femoral artery approximately golf ball sized UPPER EXTREMITIES: upper extremities are grossly normal. LOWER EXTREMITIES: No pitting edema. DP equal bilaterally diffuse bruising on bilateral lower extremities. NEURO EXAM: Normal sensorium, cranial nerves II-XII grossly intact, normal speech, no gross weakness of arms, no gross weakness of legs. Medical Decision & Procedures ER Provider Diagnostic Interpretation: Radiology results as stated below per my review and the radiologist's interpretation: ART DOP DUPLEX LWR EXT UNI FINDINGS: Right: Common femoral artery: Patent. No luminal irregularity or evidence of aneurysm/pseudoaneurysm. Other: Adjacent to the patent greater saphenous vein is an ill-defined hypoechoic heterogeneous 2.6 x 1.7 x 3.5 cm collection, which is avascular on color Doppler. This is superficial to the vessels. IMPRESSION: 1. Findings consistent with groin hematoma. No evidence of a pseudoaneurysm. Electronically signed by: Spencer Acuña M.D. Laboratory Results 07/27/17 13:45 Red Blood Count 3.73, Mean Corpuscular Volume 100.8, Mean Corpuscular Hemoglobin 33.2, Mean Corpuscular Hemoglobin Concent 33.0, Mean Platelet Volume 9.9, Neutrophils (%) (Auto) 58.1, Lymphocytes (%) (Auto) 28.3, Monocytes (%) ( Auto) 8.7, Eosinophils (%) (Auto) 3.6, Basophils (%) (Auto) 1.1, Neutrophils # ( Auto) 2.73, Lymphocytes # (Auto) 1.33, Monocytes # (Auto) 0.41, Eosinophils # ( Auto) 0.17, Basophils # (Auto) 0.05 07/27/17 13:45 Test 07/27/17 13:45 White Blood Count 4.70 K/uL (4.8-10.8) Red Blood Count 3.73 M/uL (4.2-5.4) Hemoglobin 12.4 g/dL (12.0-16.0) Hematocrit 37.6 % (37-47) Mean Corpuscular Volume 100.8 fL (80-100) Mean Corpuscular Hemoglobin 33.2 pg (25-34) Mean Corpuscular Hemoglobin Concent 33.0 g/dl (32-36) Platelet Count 245 K/uL (130-400) Mean Platelet Volume 9.9 fL (7.4-10.4) Neutrophils (%) (Auto) 58.1 % Lymphocytes (%) (Auto) 28.3 % Monocytes (%) (Auto) 8.7 % Eosinophils (%) (Auto) 3.6 % Basophils (%) (Auto) 1.1 % Neutrophils # (Auto) 2.73 K/uL (1.4-6.5) Lymphocytes # (Auto) 1.33 K/uL (1.2-3.4) Monocytes # (Auto) 0.41 K/uL (0.11-0.59) Eosinophils # (Auto) 0.17 K/uL (0-0.5) Basophils # (Auto) 0.05 K/uL (0-0.2) RDW Standard Deviation 55.8 fL (36.4-46.3) RDW Coefficient of Variation 15.1 % (11.5-14.5) Immature Granulocyte % (Auto) 0.2 % Immature Granulocyte # (Auto) 0.01 K/uL (0.00-0.02) Anion Gap 9.0 mmol/L (3-11) Est Creatinine Clear Calc Drug Dose 97.9 ml/min Estimated GFR () 118.6 Estimated GFR (Non- 102.3 BUN/Creatinine Ratio 18.7 (10-20) Calcium Level 8.2 mg/dl (8.5-10.1) Laboratory results per my review. ED Course ED COURSE: Vital signs were reviewed and showed normal The patients medical record was reviewed The above diagnostic studies were performed and reviewed. ED treatments and interventions as stated above. 1319: The patient was evaluated in room A2. A complete history and physical examination was performed. 1514: I reviewed the patient's case with Dr. Gunnar Salcedo. He said the patient can follow up as an outpatient. 1517: I updated the patient on her test results and the treatment plan. 1530: Upon reevaluation, the patient is resting comfortably.I discussed my findings with the patient and she understands and agrees with the treatment plan. Based on the patients age, coexisting illnesses, exam and lab findings the decision to treat as an outpatient was made. The patient remained stable while under my care. The patient appeared well at the time of discharge. Medical Decision Differential diagnosis: Etiologies such as fracture, dislocation, neurovascular compromise, compartment syndrome, soft tissue injury, as well as others were entertained. Patient is a 57-year-old female that had a cath done this past Friday. She notes her right groin at the insertion site has been getting a little bit bigger up until Friday. Has remained firm and solid since then but has not increased in size. CBC along with BMP was unremarkable. Ultrasound shows no pseudoaneurysm. Patient does have a firm mass which I favor is likely a clot in the right inguinal canal. Discussed with cardiology and they will follow the patient up as an outpatient. Discussed with Pt concerning signs and symptoms to watch out for. Pt was instructed to follow up with their PCP and discussed with the patient their option to return to the ED at anytime for persistent or worsening symptoms. The appropriate anticipatory guidance and out- patient management, including indications for return to the emergency department , were explained at length to the patient and understood. Medication Reconcilliation Current Medication List: was personally reviewed by me Blood Pressure Screening Patient's blood pressure: Normal blood pressure Consults Time Called: 1505 Consulting Physician: Dr. Gunnar Salcedo Returned Call: 1514 I reviewed the patient's case with Dr. Gunnar Salcedo. He said the patient can follow up as an outpatient. Impression Primary Impression: Hematoma Scribe Attestation The scribe's documentation has been prepared under my direction and personally reviewed by me in its entirety. I confirm that the note above accurately reflects all work, treatment, procedures, and medical decision making performed by me. Departure Information Dispostion Home / Self-Care Referrals Kvng Ceron D.O. (PCP) Forms HOME CARE DOCUMENTATION FORM, IMPORTANT VISIT INFORMATION Patient Instructions ED Hematoma, My [facility] Additional Instructions Please follow up with your primary care doctor with in the next 24 hours. Any worsening of your symptoms, please return to the ED immediately. This includes any fevers greater than 100.4, worsening pain, chest pain, shortness breath, persistent nausea, vomiting, unable to eat or drink, or any other concerning signs or symptoms from your standpoint. Please make sure you follow-up with cardiology as an outpatient.
== END 2017-07-27 15:30 | disposition home or self-care (01) ==
LOC: C.EDB 13:00 → C.EDA 15:30
DX: L76.22 Postprocedural hemorrhage of skin and subcutaneous tissue following other procedure (principal); F41.8 Other specified anxiety disorders; E78.5 Hyperlipidemia, unspecified; K21.9 Gastro-esophageal reflux disease without esophagitis; I50.9 Heart failure, unspecified; I95.9 Hypotension, unspecified; F17.200 Nicotine dependence, unspecified, uncomplicated; F12.90 Cannabis use, unspecified, uncomplicated; Z88.6 Allergy status to analgesic agent; Z88.2 Allergy status to sulfonamides; Z88.1 Allergy status to other antibiotic agents

== ENCOUNTER → 2017-08-20 | Day surgery (SDC) | payer OTHER ==
[2017-08-13 12:39] VITALS: Ht 160 cm; Wt 69.1 kg
[~2017-08-20] VITALS: Ht 160 cm; Wt 69.1 kg
[~2017-08-20] MED LIST changes: -ALBU18002 INH; -CALC1CHW PO; -CHOL1TAB76 PO; -CYNI1000 IM; +DIPH-437 PO; +FENTANYL CITRATE INJ 50 MCG/1 ML 2 ML VIAL ONE; +FOLI1TAB8 PO; +GABA-112 PO; +LIDOCAINE HCL 2% 2 ML VIAL (20MG/ML) ONE; -NRN100 PO; -ONDA4TAB65 PO; +PROPOFOL IV EMULSION 10 MG/ML 20 ML VIAL IV ONE; +SODIUM CHLORIDE 0.9% 500ML 500 ML IV ONE; -TPRSR25 PO; +VNTHFA/IN INH
--- NOTE | 2017-08-20 10:25 | Endo History and Physical ---
History & Physical Date of Service: Aug 20, 2017. Chief Complaint: early satiety Referring Physician: History of Present Illness Early satiety Past Medical History Osteoporosis, Arthritis, CHF, COPD, Kidney Disease, Depression Past Surgical History Hx Cardiac Surgery: Yes (HEART CATH/NO STENTS) Hx Internal Defibrillator: No Hx Pacemaker: No Hx Abdominal Surgery: Yes (GASTRIC BYPASS +TIARA, APPY) Hx of Implantable Prosthesis: No Hx Post-Op Nausea and Vomiting: No Hx Cancer Surgery: No Hx Thoracic Surgery: No Hx Orthopedic: Yes (RT RCR, RT KNEE SCOPE) Hx Urinary Tract Surgery: No Family History None Social History Smoking Status: Former Smoker Hx Substance Use: No Hx Alcohol Use: No Allergies Coded Allergies: Codeine (Verified Allergy, Intermediate, DIARRHEA/RASH,TOLERATES PERCOCET , 08/13/17) TOLERATES PERCOCET NSAIDs (Verified Allergy, Unknown, UNKNOWN, 08/13/17) Clonazepam (Verified Adverse Reaction, Intermediate, "PASS OUT", 08/13/17) Hydrocodone (Verified Adverse Reaction, Intermediate, OVER SEDATION, ) Hydromorphone (Verified Adverse Reaction, Intermediate, weakness,sweating , 08/13/17) Sulfamethoxazole w/Trimethoprim (Verified Adverse Reaction, Intermediate, DELIRIUM, 08/13/17) pt devoped invontary muscle spasm ; Aspirin (Verified Adverse Reaction, Mild, STOMACH IRRITATION, 08/13/17) Cephalexin (Verified Adverse Reaction, Mild, GI SYMPTOMS, 08/13/17) UPSET STOMACH Current Medications Reported Home Medications Medications Dose Route/Sig Max Daily Dose Days Date Category Dose Instructions Flintstones Plus Iron (Pediatric Multiple Vitamins W/) 1 Chw Chw 1 Dose PO DAILY 08/13/17 Reported Ventolin Hfa (Albuterol) 200 Puffs/01629 Mcg Aers 2-4 Puffs INH Q6H PRN 08/13/17 Reported Tylenol Pm (Acetaminophen/Diphenhydramine HCl) 500 Mg/25 Mg Tab 2-3 Tab PO HS 08/13/17 Reported Folvite (Folic Acid) 1 Mg Tab 1 Mg PO DAILY 08/13/17 Reported Neurontin (Gabapentin) 100 Mg Cap 100 Mg PO BID 08/13/17 Reported Effexor (Venlafaxine Hcl) 100 Mg Tab 100 Mg PO BID 08/13/17 Reported Sucralfate 1 Gm Tab 1 Gm PO QID 01/24/17 Reported TAKE THIS MEDICATION 30 MINUTES BEFORE MEALS AND BEDTIME Prilosec (Omeprazole) 20 Mg Cap 20 Mg PO BID 12/06/13 Reported Vital Signs Weight (Kilograms): 69.09 Height (Feet): 5 Height (Inches): 3 Physical Exam General Appearance: no apparent distress Respiratory/Chest: Auscultation: breath sounds normal Cardiovascular: Heart Auscultation: RRR Abdomen: Inspection & Palpation: soft Assessment and Plan Early satiety - EGD
--- NOTE | 2017-08-20 11:34 | GI REPORT ---
Procedure Date: 08/20/2017 10:34 AM Procedure: Upper GI endoscopy Indications: Early satiety Medicines: See the Anesthesia note for documentation of the administered medications Complications: No immediate complications. Estimated Blood Loss: Estimated blood loss: none. Procedure: Pre-Anesthesia Assessment: - ASA Grade Assessment: III - A patient with severe systemic disease. After obtaining informed consent, the endoscope was passed under direct vision. Throughout the procedure, the patient's blood pressure, pulse, and oxygen saturations were monitored continuously. The scope was introduced through the mouth, and advanced to the afferent and efferent jejunal loops. The upper GI endoscopy was accomplished without difficulty. The patient tolerated the procedure well. Findings: The examined esophagus was normal. There was no evidence of esophageal obstruction. The gastric pouch was unremarkable. There was no bezoaar. There was a gastroenteric anastamosis. There was no anastamotic stricture or ulcer. The small intestine was normal. Impression: -Unremarkable post surgical exam. Recommendation: - Discharge patient to home. Raina Liriano M.D. Raina Liriano MD 08/20/2017 11:33:46 AM This report has been signed electronically. Note Initiated On: 08/20/2017 10:34 AM I attest to the content of the Intraoperative Record and orders documented therein, exceptions below
--- NOTE | 2017-08-20 11:38 | Discharge Instructions ---
Endoscopy Patient Instructions Date / Procedure(s) Performed Aug 20, 2017. EGD Allergy Information Coded Allergies: Codeine (Verified Allergy, Intermediate, DIARRHEA/RASH,TOLERATES PERCOCET , 08/13/17) TOLERATES PERCOCET NSAIDs (Verified Allergy, Unknown, UNKNOWN, 08/13/17) Clonazepam (Verified Adverse Reaction, Intermediate, "PASS OUT", 08/13/17) Hydrocodone (Verified Adverse Reaction, Intermediate, OVER SEDATION, ) Hydromorphone (Verified Adverse Reaction, Intermediate, weakness,sweating , 08/13/17) Sulfamethoxazole w/Trimethoprim (Verified Adverse Reaction, Intermediate, DELIRIUM, 08/13/17) pt devoped invontary muscle spasm ; Aspirin (Verified Adverse Reaction, Mild, STOMACH IRRITATION, 08/13/17) Cephalexin (Verified Adverse Reaction, Mild, GI SYMPTOMS, 08/13/17) UPSET STOMACH Discharge Date / Findings Aug 20, 2017. Unremarkable post gastric bypass anatomy Provider Instructions Activity Restrictions - No exercising or heavy lifting for 24 hours. - Do not drink alcohol the day of the procedure. - Do not drive a car or operate machinery until the day after the procedure. - Do not make any important decisions or sign important papers in 24 hours after the procedure. Following Day: - Return to full activity which may include returning to work/school. Diet Start your diet with liquids and light foods (jello, soup, juice, toast). Then eat your usual diet if not nauseated. Treatment For Common After Affects For mild abdominal pain, bloating, or excessive gas: - Rest - Eat lightly - Lie on right side Follow-Up Information Follow-up with DR. VIZCARRA as scheduled Anesthesia Information What You Should Know You have had a procedure that required some medicine to reduce anxiety and discomfort. This treatment is called moderate sedation. After receiving the treatment, you may be sleepy, but you will be able to breathe on your own. The effects of the treatment may last for several hours. Follow these instructions along with Activity/Diet recommendations noted above: * Do NOT do anything where dizziness or clumsiness would be dangerous. * Rest quietly at home today, then you can be up and about tomorrow. * Have a responsible person stay with you the rest of today. * You may have had an I.V. today. If so, you may take the dressing off later today. Recommendations Call your doctor if: * Trouble breathing * Continuous vomiting for more than 24 hours * Temperature above 101 degrees * Severe abdominal pain or bloating * Pain not relieved by pain medicine ordered * There is increased drainage or redness from any incision * A large amount of rectal bleeding greater than 2-3 tablespoons. (If you had a polyp/s removed or have hemorrhoids, a small amount of blood - from the rectum is to be expected.) * You have any unanswered questions or concerns. IN THE EVENT OF A SERIOUS EMERGENCY, GO TO THE NEAREST EMERGENCY ROOM Your discharge instructions were prepared by provider Raina Hogue. Patient Instructions Signature Page Alvina Carty Patient (or Guardian) Signature/Date: I have read and understand the instructions given to me by my caregivers. Caregiver/RN/Doctor Signature/Date: The above-named patient and/or guardian has received patient instructions on this date. + Original Patient Signature Page (only) stays with chart. Please make copy for patient.
[2017-08-20 12:10] VITALS: BP 118/78; PULSE 77; O2SAT 96
--- NOTE | 2017-08-20 12:24 | Anesthesiology Progress Note ---
Anesthesia Post Op Note Date & Time Aug 20, 2017 at 12:24 Vital Signs Pain Intensity: 5 Vital Signs Past 12 Hours Date Time Temp Pulse Resp B/P (MAP) Pulse Ox O2 Delivery O2 Flow Rate FiO2 08/20/17 12:10 77 18 118/78 (91) 96 08/20/17 11:50 76 18 113/74 (87) 95 08/20/17 11:34 74 16 98/61 (73) 96 08/20/17 10:33 36.7 69 18 95 Notes Mental Status: alert / awake / arousable, participated in evaluation Pt Amnestic to Procedure: Yes Nausea / Vomiting: adequately controlled Pain: adequately controlled Airway Patency, RR, SpO2: stable & adequate BP & HR: stable & adequate Hydration State: stable & adequate Anesthetic Complications: no major complications apparent
== END | disposition home or self-care (01) ==
LOC: C.GI 10:10
PROVIDERS: ATTEND Internal Medicine Gastroenterology
DX: R68.81 Early satiety (principal); I42.9 Cardiomyopathy, unspecified; M81.0 Age-related osteoporosis without current pathological fracture; I50.9 Heart failure, unspecified; J44.9 Chronic obstructive pulmonary disease, unspecified; N28.9 Disorder of kidney and ureter, unspecified; F32.9 Major depressive disorder, single episode, unspecified; Z98.84 Bariatric surgery status; Z88.5 Allergy status to narcotic agent; Z88.2 Allergy status to sulfonamides; Z88.8 Allergy status to other drugs, medicaments and biological substances; Z88.6 Allergy status to analgesic agent; Z79.899 Other long term (current) drug therapy

== ENCOUNTER 2017-09-05 16:10 | Emergency (ER) | payer OTHER ==
[~2017-09-05] VITALS: Ht 160 cm; Wt 69.8 kg
[~2017-09-05 16:10] MED LIST changes: -FENTANYL CITRATE INJ 50 MCG/1 ML 2 ML VIAL ONE; -GABA-112 PO; -LIDOCAINE HCL 2% 2 ML VIAL (20MG/ML) ONE; -PROPOFOL IV EMULSION 10 MG/ML 20 ML VIAL IV ONE; -SODIUM CHLORIDE 0.9% 500ML 500 ML IV ONE
[2017-09-05 16:13] VITALS: TEMP 37.2; Ht 160 cm; Wt 69.8 kg
[2017-09-05] MEDS ORDERED: LIDO/EPINEPHRINE/SOD BICARB 20 ML VIAL INFIL ONE (16:30)
--- NOTE | 2017-09-05 16:45 | DIAGNOSTIC IMAGING REPORT ---
L ANKLE MIN 3 VIEWS ROUTINE HISTORY: 57 years-old Female LEFT, LATERAL ANKLE LACERATION acute left ankle pain with laceration COMPARISON: None available TECHNIQUE: 3 views of the left ankle FINDINGS: Bones appear mildly demineralized. Mild to moderate degenerative changes of the tibiotalar joint. Large plantar osteophyte about the calcaneus. Moderate marginal spurring with joint space narrowing and subchondral sclerosis involves the midfoot. No osteochondral defect identified. Mild soft tissue swelling about the lower leg and ankle. No opaque foreign body, acute fracture or dislocation. IMPRESSION: 1. Mild soft tissue swelling about the lower leg and ankle without acute fracture or dislocation. 2. Degenerative changes as above. The above report was generated using voice recognition software. It may contain grammatical, syntax or spelling errors. Electronically signed by: Yrn Holly M.D. 09/05/2017 4:44 PM Dictated Date/Time: 09/05/2017 4:41 PM
--- NOTE | 2017-09-05 17:22 | EMERGENCY ROOM VISIT NOTE ---
ED Visit Note First contact with patient: 16:16 CHIEF COMPLAINT: Left calf laceration 24 hours ago HISTORY OF PRESENT ILLNESS: Patient is a 57-year-old female who presents emergency department from [facility] for evaluation of a laceration to the left lateral leg that she sustained 24 hours ago. She was him doing some yard work yesterday, and somehow cut herself. She does not know if it was on a tree or rash. She only noticed the injury when she went inside to get cleaned up. She cleansed the area with saline and soap and water last evening and had a covered with a bandage overnight which she bled through. She went to [facility] this afternoon, an x-ray was performed for foreign body and there were none, but according to [facility] documentation, provider was concerned about possible bone infection. The patient notes some minor soreness at the laceration that she rates a 2/10. She is able to walk and bear weight without difficulty. She denies any drainage or discharge from the area. REVIEW OF SYSTEMS: Review of systems as per HPI. All other systems reviewed were negative. 10 systems reviewed. PMH: Electronic medical records are reviewed and summarized as above/below. See Problem List. Her tetanus is up-to-date. SOCIAL HISTORY: Patient living at home. Smoker. PHYSICAL EXAM: Vital Signs: Reviewed Nurse's notes. There is a 3 cm long laceration on the on the lateral aspect of the left ankle, posterior to the fibula. The area is slightly tender to palpation, no erythema, increased warmth or induration. No drainage or discharge from the wound. EMERGENCY DEPARTMENT COURSE: X-ray of the left ankle was obtained. There was no evidence for acute bony abnormality or foreign body. Using sterile technique, the wound was anesthetized with 1% buffered lidocaine with epinephrine, then cleansed and irrigated thoroughly with Betadine and saline. Wound was inspected, no evidence for foreign body noted. Benzoin and Steri-Strips were applied to reapproximate the wound. Wound care measures were discussed with the patient. She was discharged home in good condition. Medication reconciliation: I attest that I have personally reviewed the patient' s current medication list. Blood pressure screening : Patient was found to have normal blood pressure on screening and does not require follow-up. L ANKLE MIN 3 VIEWS ROUTINE HISTORY: 57 years-old Female LEFT, LATERAL ANKLE LACERATION acute left ankle pain with laceration COMPARISON: None available TECHNIQUE: 3 views of the left ankle FINDINGS: Bones appear mildly demineralized. Mild to moderate degenerative changes of the tibiotalar joint. Large plantar osteophyte about the calcaneus. Moderate marginal spurring with joint space narrowing and subchondral sclerosis involves the midfoot. No osteochondral defect identified. Mild soft tissue swelling about the lower leg and ankle. No opaque foreign body, acute fracture or dislocation. IMPRESSION: 1. Mild soft tissue swelling about the lower leg and ankle without acute fracture or dislocation. 2. Degenerative changes as above. Problem List Medical Problems: (1) Anxiety Status: Chronic (2) Congestive heart failure, unspecified Permanent Comment: echo 03/25/13-grade 1 diastolic dysfunction with mild concentric LVH Status: Chronic (3) Depression Status: Chronic (4) Dyslipidemia Status: Chronic (5) Fibromyalgia Status: Chronic (6) GERD (gastroesophageal reflux disease) Status: Chronic (7) Organic sleep disorder Status: Chronic (8) Osteoarthritis Status: Chronic (9) Restless legs Status: Chronic Surgical Problems: (1) Gastric bypass status for obesity Status: Chronic (2) H/O arthroscopic knee surgery Permanent Comment: R knee; 1998 Status: Chronic (3) Hx of appendectomy Status: Chronic (4) S/P bronchoscopy Status: Chronic (5) S/p EGD Permanent Comment: 11/24/2014- small ulcers at anastamosis, brandy removed/ [facility] Status: Chronic (6) Status post cholecystectomy Permanent Comment: [place] cholecyst[place]. [place] [facility] [place] Status: Chronic (7) Status post repair of paraesophageal diaphragmatic hernia Permanent Comment: Dr. Shay [facility] [place]17 Status: Chronic Current/Historical Medications Scheduled Acetaminophen/Diphenhydramine (Tylenol Pm), 2-3 TAB PO HS Folic Acid (Folvite), 1 MG PO DAILY Omeprazole (Prilosec), 20 MG PO BID Pediatric Multiple Vitamins W/ (Flintstones Plus Iron), 1 DOSE PO DAILY Sucralfate (Sucralfate), 1 GM PO QID Venlafaxine Hcl (Effexor), 100 MG PO BID Scheduled PRN Albuterol Hfa (Ventolin Hfa), 2-4 PUFFS INH Q6H PRN for Shortness of Breath Allergies Coded Allergies: Codeine (Verified Allergy, Intermediate, DIARRHEA/RASH,TOLERATES PERCOCET , 08/13/17) TOLERATES PERCOCET NSAIDs (Verified Allergy, Unknown, UNKNOWN, 08/13/17) Clonazepam (Verified Adverse Reaction, Intermediate, "PASS OUT", 08/13/17) Hydrocodone (Verified Adverse Reaction, Intermediate, OVER SEDATION, ) Hydromorphone (Verified Adverse Reaction, Intermediate, weakness,sweating , 08/13/17) Sulfamethoxazole w/Trimethoprim (Verified Adverse Reaction, Intermediate, DELIRIUM, 08/13/17) pt devoped invontary muscle spasm ; Aspirin (Verified Adverse Reaction, Mild, STOMACH IRRITATION, 08/13/17) Cephalexin (Verified Adverse Reaction, Mild, GI SYMPTOMS, 08/13/17) UPSET STOMACH Vital Signs Date Time Temp Pulse Resp B/P (MAP) Pulse Ox O2 Delivery O2 Flow Rate FiO2 09/05/17 17:30 88 16 115/76 99 Room Air 09/05/17 16:13 37.2 108 16 109/71 99 Room Air Departure Information Impression Primary Impression: Leg laceration Referrals Kvng Ceron D.O. (PCP) Patient Instructions [facility] Additional Instructions Keep wound clean and dry. Clean gently with mild soap and water. Allow Steri- Strips to fall off on their own. Use an antibiotic ointment for 3-4 days, then let wound dry. Seek immediate medical attention for any signs of infection ( increasing redness, swelling, drainage). Ice and elevate for swelling and pain. Tylenol 1000 mg every 6 hrs for pain. Problem Qualifiers Primary Impression: Leg laceration Encounter type: initial encounter Laterality: left Qualified Codes: S81.812A - Laceration without foreign body, left lower leg, initial encounter
[2017-09-05 17:30] VITALS: BP 115/76; PULSE 88; O2SAT 99
== END 2017-09-05 17:37 | disposition home or self-care (01) ==
LOC: C.EDB 16:11 → C.EDD 17:37
DX: S81.812A Laceration without foreign body, left lower leg, initial encounter (principal); W26.8XXA Contact with other sharp object(s), not elsewhere classified, initial encounter; Z72.0 Tobacco use; Z79.899 Other long term (current) drug therapy; F41.8 Other specified anxiety disorders; K21.9 Gastro-esophageal reflux disease without esophagitis; Z88.6 Allergy status to analgesic agent; Z88.8 Allergy status to other drugs, medicaments and biological substances; Z88.1 Allergy status to other antibiotic agents

== ENCOUNTER 2017-12-18 20:48 | Emergency (ER) | payer OTHER ==
[~2017-12-18] VITALS: Ht 160 cm; Wt 66.7 kg
[~2017-12-18 20:48] MED LIST changes: +ATR25 PO; +CALC-206 PO; -DIPH-437 PO; +METO25TA3 PO; +NRN100 PO; -OMEP20CA9 PO; +PRLSR20 PO; +VITAMIN B12 INJ IM
[2017-12-18 21:00] VITALS: TEMP 36.7
[2017-12-18] MEDS ORDERED: SODIUM CHLORIDE 0.9% 500ML 500 ML IV STA (21:32)
[2017-12-18 21:51] VITALS: Ht 160 cm; Wt 66.7 kg
[2017-12-18 22:01] LABS: BASO % 0.4 %; BASO ABS # 0.02 K/uL (0-0.2); EOS % 1.4 %; EOS ABS # 0.07 K/uL (0-0.5); HEMATOCRIT 39.4 % (37-47); IG# 0.01 K/uL (0.00-0.02); LYMPH % 31.5 %; LYMPH ABS # 1.63 K/uL (1.2-3.4); MEAN CELL VOLUME 101.5 fL (80-100); MEAN CORPUSCULAR HEMOGLOBIN 33.5 pg (25-34); MEAN PLATELET VOLUME 9.8 fL (7.4-10.4); MONO % 8.7 %; MONO ABS # 0.45 K/uL (0.11-0.59); NEUT % 57.8 %; NEUT ABS # 2.99 K/uL (1.4-6.5); PLATELET COUNT 211 K/uL (130-400); RED CELL DISTRIBUTION WIDTH CV 15.5 % (11.5-14.5); RED CELL DISTRIBUTION WIDTH SD 56.5 fL (36.4-46.3); WHITE BLOOD COUNT 5.17 K/uL (4.8-10.8)
[2017-12-18 22:13] LABS: INR 1.1 (0.9-1.1); PTT PATIENT 23.1 SECONDS (21.0-31.0)
[2017-12-18 22:14] VITALS: O2SAT 100
[2017-12-18 22:21] LABS: CALCIUM 8.1 mg/dl (8.5-10.1); CREATININE 0.77 mg/dl (0.60-1.20); POTASSIUM 2.9 mmol/L (3.5-5.1); TOTAL PROTEIN 6.3 gm/dl (6.4-8.2)
[2017-12-18] MEDS ORDERED: POTASSIUM CHLORIDE 10 MEQ TABCR PO STA (22:29)
[2017-12-18] MEDS ORDERED: THIA100T10 PO (22:30)
[2017-12-18] MEDS ORDERED: GABA-112 PO (22:30)
[2017-12-18] MEDS ORDERED: ATR25 PO (22:30)
[2017-12-18] MEDS ORDERED: OMEP20CA9 PO (22:30)
[2017-12-18] MEDS ORDERED: CYNI1000 IM (22:32)
[2017-12-18] MEDS ORDERED: ACET-1256 PO (22:34)
--- NOTE | 2017-12-18 22:47 | DIAGNOSTIC IMAGING REPORT ---
RIGHT TIBIA AND FIBULA 2 VIEWS CLINICAL HISTORY: Right leg injury. FINDINGS: AP and lateral views of the right tibia and fibula are obtained. No prior studies are available for comparison at the time of dictation. The skeletal structures are osteopenic. There is no radiographic evidence of right tibial or fibular fracture. The knee and ankle joints appear maintained noting arthritic change. No bony erosion or periostitis is identified. Bony overgrowth is noted along the anterior tibial tuberosity as well as anterior tibial plateau. Soft tissue edema is noted throughout the calf. Small phleboliths are observed. IMPRESSION: Soft tissue edema with no acute bony abnormality identified in the right tibia or fibula. Electronically signed by: Devin Aguirre M.D. 12/18/2017 10:46 PM Dictated Date/Time: 12/18/2017 10:44 PM
--- NOTE | 2017-12-18 23:34 | DIAGNOSTIC IMAGING REPORT ---
ULTRASOUND RIGHT LOWER EXTREMITY VENOUS CLINICAL HISTORY: Right leg swelling. COMPARISON STUDY: Bilateral lower extremity venous ultrasound dated 03/18/2016. TECHNIQUE: Real-time, grayscale, and color Doppler sonography of the deep veins of the right lower extremity was performed from the inguinal crease to the calf. Compression and augmentation were utilized. FINDINGS: There is no sonographic evidence of deep venous thrombosis identified in the right lower extremity. The common femoral, superficial femoral, and popliteal veins are patent and normally compressible. The greater saphenous vein and the profunda femoris vein at the junction with the common femoral vein are clear. The visualized calf veins are patent. IMPRESSION: There is no sonographic evidence of deep venous thrombosis identified in the right lower extremity. Electronically signed by: Devin Aguirre M.D. 12/18/2017 11:33 PM Dictated Date/Time: 12/18/2017 11:33 PM
[2017-12-18] MEDS ORDERED: POTASSIUM CHLORIDE 20 MEQ/15 ML UDC PO STA (23:43)
[2017-12-18] MEDS ORDERED: ACETAMINOPHEN IV 650 MG in EMPTY BAG 0 ML IV STA (23:43)
--- NOTE | 2017-12-19 01:27 | EMERGENCY ROOM VISIT NOTE ---
ED Visit Note First contact with patient: 21:25 The patient was seen and examined with Harini Lopez PA-C. I agree with the history, physical and findings. Please see the note for disposition and details.
[2017-12-19] MEDS ORDERED: OXYCODONE IR HOME PACK PO ONE (01:30)
[2017-12-19 01:57] VITALS: BP 123/75; PULSE 70; O2SAT 99
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
--- NOTE | 2017-12-19 07:00 | DIAGNOSTIC IMAGING REPORT ---
R EXTREMITY NONVASCULAR LIMITED CLINICAL HISTORY: right lower leg contusion, ? extent trauma. Pain. TECHNIQUE: Ultrasound COMPARISON STUDY: None FINDINGS: Ultrasonic evaluation of the skin bruising regions over the lower legs confirms presence of 2 hematomas. The more proximal in the mid aspect of the proximal tibial region measures 3 x 4 cm. The more distal within the right calf measures 4 x 9 x 1.0 cm. IMPRESSION: subcutaneous hematomas within the subcutaneous fat at the site of the soft tissue bruising. The above report was generated using voice recognition software. It may contain grammatical, syntax or spelling errors. Electronically signed by: Tello Warren M.D. 12/19/2017 6:59 AM Dictated Date/Time: 12/19/2017 6:57 AM
== END 2017-12-19 02:10 | disposition home or self-care (01) ==
LOC: C.EDB 20:50
DX: S80.11XA Contusion of right lower leg, initial encounter (principal); W50.1XXA Accidental kick by another person, initial encounter; Y93.89 Activity, other specified; E87.6 Hypokalemia; E16.2 Hypoglycemia, unspecified; Z98.84 Bariatric surgery status; F41.9 Anxiety disorder, unspecified; I50.9 Heart failure, unspecified; F32.9 Major depressive disorder, single episode, unspecified; E78.5 Hyperlipidemia, unspecified; M79.7 Fibromyalgia; K21.9 Gastro-esophageal reflux disease without esophagitis; F12.10 Cannabis abuse, uncomplicated; F11.10 Opioid abuse, uncomplicated; M19.90 Unspecified osteoarthritis, unspecified site; G25.81 Restless legs syndrome; Z90.49 Acquired absence of other specified parts of digestive tract; Z79.899 Other long term (current) drug therapy

== ENCOUNTER 2017-12-26 18:03 | Emergency (ER) | payer OTHER ==
[~2017-12-26] VITALS: Ht 160 cm; Wt 67.8 kg
[~2017-12-26 18:03] MED LIST changes: -ATR25 PO; -FOLI1TAB8 PO; +GABA-112 PO; -METO25TA3 PO; -NRN100 PO; -PRLSR20 PO; -SUCR1TAB PO; -VITAMIN B12 INJ IM
[2017-12-26 18:17] VITALS: TEMP 36.9; Ht 160 cm; Wt 67.8 kg
[2017-12-26] MEDS ORDERED: CEFTRIAXONE SOD INJ 1 GM ADDVIAL IV STA (18:47)
[2017-12-26] MEDS ORDERED: DOXYCYCLINE IV 100 MG in DEXTROSE 5% 100ML 100 ML IV STA (18:50)
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
[2017-12-26] MEDS ORDERED: RMR15 PO (18:57)
[2017-12-26] MEDS ORDERED: NRN100 PO (18:57)
[2017-12-26] MEDS ORDERED: DOXY100C2 PO (18:57)
[2017-12-26] MEDS ORDERED: POTA10TA32 PO (18:57)
[2017-12-26] MEDS ORDERED: ZINC1TAB PO (18:58)
[2017-12-26] MEDS ORDERED: SUCR1TAB PO (19:13)
[2017-12-26 19:45] LABS: BASO % 0.9 %; BASO ABS # 0.05 K/uL (0-0.2); EOS % 2.8 %; EOS ABS # 0.16 K/uL (0-0.5); HEMOGLOBIN 12.6 g/dL (12.0-16.0); IG# 0.01 K/uL (0.00-0.02); LYMPH % 34.7 %; LYMPH ABS # 2.01 K/uL (1.2-3.4); MEAN CELL VOLUME 101.9 fL (80-100); MEAN CORPUSCULAR HEMOGLOBIN 33.8 pg (25-34); MEAN CORPUSCULAR HGB CONC 33.2 g/dl (32-36); MEAN PLATELET VOLUME 9.4 fL (7.4-10.4); MONO % 11.6 %; MONO ABS # 0.67 K/uL (0.11-0.59); NEUT % 49.8 %; NEUT ABS # 2.89 K/uL (1.4-6.5); PLATELET COUNT 246 K/uL (130-400); RED CELL DISTRIBUTION WIDTH CV 15.5 % (11.5-14.5); RED CELL DISTRIBUTION WIDTH SD 57.8 fL (36.4-46.3); WHITE BLOOD COUNT 5.79 K/uL (4.8-10.8)
[2017-12-26 20:01] LABS: CALCIUM 8.3 mg/dl (8.5-10.1); CREATININE 0.64 mg/dl (0.60-1.20); POTASSIUM 3.6 mmol/L (3.5-5.1)
--- NOTE | 2017-12-26 20:38 | DIAGNOSTIC IMAGING REPORT ---
R VENOUS DOPP LOWER EXT UNILAT HISTORY: 57 years-old Female RLE edema hematoma ?DVT or increasing in size acute pain and swelling of the right lower extremity COMPARISON: Duplex venous Doppler study 12/18/2017 TECHNIQUE: Multiple real-time sonographic images of the right lower extremity deep venous structures were obtained assessing grayscale appearance, color and spectral flow FINDINGS: There is normal flow, compressibility, phasicity and augmentation of the right lower extremity deep venous structures. Evaluation of the calf deep veins is limited secondary to subcutaneous and deep tissue swelling. Complex fluid collection about the medial right calf, 5.4 x 13.2 x 1.2 cm. Previously, soft tissue hematomas were described on study dated 12/18/2017 measuring up to 9 cm. IMPRESSION: 1. No sonographic evidence of deep venous thrombosis. 2. Probable hematoma about the medial right calf redemonstrated. The above report was generated using voice recognition software. It may contain grammatical, syntax or spelling errors. Electronically signed by: Yrn Holly M.D. 12/26/2017 8:36 PM Dictated Date/Time: 12/26/2017 8:33 PM
[2017-12-26 20:46] VITALS: BP 149/82; PULSE 92; O2SAT 100
--- NOTE | 2017-12-26 21:12 | EMERGENCY ROOM VISIT NOTE ---
ED Visit Note First contact with patient: 19:17 The patient was seen and examined with Vijaya Abernathy PA-C. I agree with the history, physical and findings. Please see the note for disposition and details.
[2017-12-26] MEDS ORDERED: OXYCODONE/ACETAMINOPHEN 5-325 TAB PO STA (21:30)
[2017-12-26] MEDS ORDERED: VANCOMYCIN IV 1,000 MG in SODIUM CHLORIDE 0.9% 250ML 250 ML IV STA (21:56)
[2017-12-26] MEDS ORDERED: MoRPHine SULFATE 4 MG/ML 1 ML CARP\\VIAL IV PRN (22:00)
[2017-12-26] MEDS ORDERED: VANCOMYCIN CONSULT ACTIVE PRN (22:00)
[2017-12-26] MEDS ORDERED: ATR25 PO (22:30)
[2017-12-26] MEDS ORDERED: THIA100T10 PO (22:30)
[2017-12-26] MEDS ORDERED: OMEP20CA9 PO (22:30)
[2017-12-26] MEDS ORDERED: CYNI1000 IM (22:32)
[2017-12-26] MEDS ORDERED: ACET-1256 PO (22:34)
== END 2017-12-26 22:20 | disposition home or self-care (01) ==
LOC: C.EDB 18:03
DX: S80.11XA Contusion of right lower leg, initial encounter (principal); W50.0XXA Accidental hit or strike by another person, initial encounter; F41.9 Anxiety disorder, unspecified; I50.9 Heart failure, unspecified; F32.9 Major depressive disorder, single episode, unspecified; E78.5 Hyperlipidemia, unspecified; K21.9 Gastro-esophageal reflux disease without esophagitis; I95.9 Hypotension, unspecified; M19.90 Unspecified osteoarthritis, unspecified site; F17.200 Nicotine dependence, unspecified, uncomplicated; F12.90 Cannabis use, unspecified, uncomplicated

== ENCOUNTER 2018-11-24 11:41 | Inpatient (IN) ==
[2018-11-24] MEDS ORDERED: SODIUM CHLORIDE 0.9% 1000ML 1,000 ML IV ONE (12:23)
[2018-11-24] MEDS ORDERED: cefTRIAXone SODIUM 1,000 MG/50 ML BAG IV STA (12:23)
[2018-11-24] MEDS ORDERED: AMPICILLIN/SULBACTAM SOD 3,000 MG in 0.9 % SODIUM CHLORIDE 100 ML IV STA (12:32)
[2018-11-24] MEDS ORDERED: CIPROFLOXACIN 400 MG/200 ML BAG IV STA (12:32)
[2018-11-24 13:28] LABS: Basophils # (auto) 0.02 K/uL (0-0.2); Basophils % (auto) 0.3 %; Eosinophils # (auto) 0.01 K/uL (0-0.5); Eosinophils % (auto) 0.2 %; Hematocrit (blood only) 31.6 % (37-47); Hemoglobin 10.5 g/dL (12.0-16.0); Immature Granulocytes # (auto) 0.01 K/uL (0.00-0.02); Immature Granulocytes % (auto) 0.2 %; Lymphocytes # (auto) 0.99 K/uL (1.2-3.4); Lymphocytes % (auto) 16.6 %; Mean Corpuscular Hgb Conc 33.2 g/dL (32-36); Mean Platelet Volume 10.3 fL (7.4-10.4); Monocytes # (auto) 0.53 K/uL (0.11-0.59); Monocytes % (auto) 8.9 %; Neutrophils # (auto) 4.39 K/uL (1.4-6.5); Neutrophils % (auto) 73.8 %; Platelet Count 188 K/uL (130-400); RDW Coefficient of Variation 18.3 % (11.5-14.5); RDW Standard Deviation 69.5 fL (36.4-46.3); Red Blood Count 3.01 M/uL (4.2-5.4); White Blood Count 5.95 K/uL (4.8-10.8)
[2018-11-24 13:44] LABS: Albumin Level 2.1 gm/dl (3.4-5.0); BUN Creatinine Ratio 9.7 (10-20); C Reactive Protein 8.55 mg/dl (0-0.29); Calcium 8.2 mg/dl (8.5-10.1); Creatinine Clr Calc Pharmacy 59.7 ml/min; Est GFR (African American) 87.5; Est GFR (Non-African American) 75.5
[2018-11-24 13:46] LABS: Albumin Globulin Ratio 0.7 (0.9-2); Bilirubin,Total 0.8 mg/dl (0.2-1); Globulin 2.9 gm/dl (2.5-4.0)
[2018-11-24 13:49] LABS: INR 1.2 (0.9-1.1); Partial Thromboplastin Ratio 1.2; Partial Thromboplastin Time 33.3 Seconds (21.0-31.0); Prothrombin Time 12.3 Seconds (9.0-12.0)
--- NOTE | 2018-11-24 14:56 | Emergency Department Note ---
History of Present Illness General Chief complaint: Leg Injury/Pain Stated complaint: RIGHT LEG CELLULITIS Source: patient Mode of arrival: ambulatory Limitations: no limitations History of Present Illness Provider Complaint: + discoloration Onset (ago): 1 day(s) Tetanus up to date: yes Location: + RLE Severity: moderate Maximum Pain Intensity: 6 Current Pain Intensity: 6 Quality: + aching, + dull and + constant Pain Consistency: + constant Relieved By: + rest Exacerbated By: + palpation and + movement Context: + none Associated symptoms: + chills Treatments prior to arrival: + none and + antibiotic (cipro x2 doses) HPI narrative: This 58-year-old female patient presents emergency department today, ambulatory, accompanied by her . Patient states yesterday afternoon, she noticed her legs were swollen. She does normally wear compression stockings and has a history of Pseudomonas infection associated with wounds on her right lower extremity. She does have history of cellulitis in the left lower extremity, for which she was admitted. The patient states when she pulled her compression stockings down, she noticed that her right leg was erythematous to the mid calf. The patient states she had an endoscopy today, so started taking 2 doses of 500 mg Cipro which she had at home. When she awoke this morning, she noticed that the redness seems to spread up to just inferior to the knee. She does report subjective chills, but denies any fever, body aches, nausea, vomiting, difficulty breathing, chest pain, or calf swelling. She denies any recent open wounds. Home Medications Home Medications Medication Instructions Recorded Confirmed Type albuterol sulfate [Ventolin HFA] 2 puff INHALATION QID PRN 01/04/18 11/24/18 History gabapentin 100 mg PO TID 01/04/18 11/24/18 History omeprazole 20 mg PO BID 01/04/18 11/24/18 History sucralfate 1 g PO ACHS 01/04/18 11/24/18 History cyanocobalamin (vitamin B-12) 1,000 mcg IM MONTHLY 03/24/18 11/24/18 History potassium chloride 20 meq PO QAM 09/23/18 11/24/18 History venlafaxine 100 mg PO BID 09/23/18 11/24/18 History Flintstones with Iron 1 tab PO BID 11/20/18 11/24/18 History Whey Protein 1 ea PO BID 11/20/18 11/24/18 History cholecalciferol (vitamin D3) 2,000 unit PO BID 11/20/18 11/24/18 History [Vitamin D3] nystatin 1 applic TOPICAL TID PRN 11/20/18 11/24/18 History ondansetron HCl 4 mg PO Q8 PRN 11/20/18 11/24/18 History thiamine HCl (vitamin B1) 100 mg PO BID 11/20/18 11/24/18 History zinc gluconate 50 mg PO QAM 11/20/18 11/24/18 History calcium citrate 200 mg PO BID 11/24/18 11/24/18 History food supplemt, lactose-reduced 1 ea PO DAILY 11/24/18 11/24/18 History [Ensure] magnesium 200 mg PO DAILY 11/24/18 11/24/18 History Allergies Allergy/AdvReac Type Severity Reaction Status Date / Time codeine Allergy Intermediate DIARRHEA/RASH,TOLERATES Verified 11/24/18 14:04 PERCOCET duloxetine Allergy Intermediate felt like Verified 11/24/18 14:04 crawling out of her skin NSAIDS (Non-Steroidal Allergy Unknown pt states Verified 11/24/18 14:04 Anti-Inflamma she is not allowed to take d/t gastric bypass Bactrim AdvReac Intermediate DELIRIUM Verified 12/28/17 19:46 clonazepam AdvReac Intermediate "PASS OUT" Verified 11/24/18 14:04 hydrocodone AdvReac Intermediate OVER Verified 11/24/18 14:04 SEDATION hydromorphone AdvReac Intermediate weakness,sw Verified 11/24/18 14:04 eating sulfamethoxazole AdvReac Intermediate DELIRIUM Verified 11/24/18 14:04 trimethoprim AdvReac Intermediate DELIRIUM Verified 11/24/18 14:04 aspirin AdvReac Mild STOMACH Verified 11/24/18 14:04 IRRITATION cephalexin AdvReac Mild GI SYMPTOMS Verified 11/24/18 14:04 Past Med/Surg History Medical History Chronic obstructive pulmonary disease (Chronic) inhaler prn Cardiac murmur (Chronic) faint Fatty liver (Chronic) History of gastric ulcer (Chronic) Elevated liver enzymes (Chronic) per pt currently elevated Chronic kidney disease, stage 3 (Chronic) 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 Chronic back pain (Chronic) Degenerative disc disease (Chronic) Spinal stenosis (Chronic) Dysphagia (Chronic) Congestive heart failure, unspecified (Chronic 08/09/12) "echo 03/25/13-grade 1 diastolic dysfunction with mild concentric LVH" GERD (gastroesophageal reflux disease) (Chronic) Fibromyalgia (Chronic) Osteoarthritis (Chronic) Anxiety (Chronic) Dyslipidemia (Chronic) Organic sleep disorder (Chronic) Hematoma of right lower extremity (Resolved) Marijuana abuse (Resolved) Opiate abuse, continuous (Resolved) Traumatic wound (Resolved) Venous stasis ulcer (Resolved) CHF (congestive heart failure) (Chronic) hx of Osteoarthritis (Chronic) Surgical History History of wisdom tooth extraction (Chronic) History of tooth extraction (Chronic) History of cholecystectomy (Chronic) History of esophagogastroduodenoscopy (EGD) (Chronic) History of colonoscopy (Chronic) History of arthroscopy of right knee (Chronic) Hx of repair of right rotator cuff (Chronic) History of repair of hiatal hernia (Chronic) Gastric bypass status for obesity (Chronic) Hx of appendectomy (Chronic) H/O arthroscopic knee surgery (Chronic) "R knee; 1998" S/P bronchoscopy (Chronic) Status post repair of paraesophageal diaphragmatic hernia (Chronic) "Dr. Shay [facility] [place] 01/20/17" Hx of gastric bypass (Chronic) Family History Other Family history not known due to adoption Social History Preferred Language: Bengali Communication Ability: Effective Visual Impairment: No Limitations Hearing Ability: Normal Junction Maker Required: No Beliefs That Will Affect Care: None marital status: Current Living Situation: Significant Other Current Living Situation Comment: lives with fiance current occupational status: unemployed Other Information That Helps Us Care for You: No Feels Safe at Home: Yes Safety Concerns: Feels Safe At This Time Smoking Status: Current every day smoker Tobacco Type: cigarettes Cigarettes Per Day: 1ppd Do You Dip or Chew Tobacco: No Second Hand Exposure: Yes (father smokes) Tobacco Cessation Education Requested by Patient: No Hx Alcohol Use: Yes Alcohol type: wine Alcohol type Comment: 1 glass wine daily Hx Substance Use: No during the past year weight has: other Review of Systems A total of 10 systems reviewed and were otherwise negative Physical Exam Vital Signs: Vital Signs - 24 hr 11/24/18 11:47 11/24/18 12:10 11/24/18 12:45 Temperature 36.5 C Temperature Source Oral Sepsis Recent Feve r Within 48 Hours No Sepsis New/Unexpla ined Change in Men tomy Status No Sepsis Action Take n by Nursing No Action Required Pulse Rate 77 80 Pulse Rate [Right Finger] 78 Pulse Rate from Sp O2 Sensor Pulse Rhythm Regular Respiratory Rate 17 18 18 Respiratory Effort / Characteristics Non-Labored Non-Labored Sponta neous Respiratory Depth Normal Normal Respiratory Patter n Regular Regular Blood Pressure 97/60 L Blood Pressure [Ri ght Arm] 96/57 L Blood Pressure Francy n 72 Blood Pressure Francy n [Right Arm] 70 Blood Pressure Pos ition Sitting Blood Pressure Pos ition [Right Arm] Lying Pulse Oximetry 99 100 100 Oxygen Delivery Me thod Room Air Room Air Room Air 11/24/18 13:56 11/24/18 14:45 11/24/18 15:01 Temperature Temperature Source Sepsis Recent Feve r Within 48 Hours Sepsis New/Unexpla ined Change in Men tomy Status Sepsis Action Take n by Nursing Pulse Rate 68 Pulse Rate [Right Finger] 83 86 Pulse Rate from Sp O2 Sensor 70 Pulse Rhythm Respiratory Rate 20 20 22 Respiratory Effort / Characteristics Non-Labored Sponta neous Respiratory Depth Normal Normal Respiratory Patter n Regular Blood Pressure 93/55 L Blood Pressure [Ri ght Arm] 100/65 100/65 Blood Pressure Francy n 67 Blood Pressure Francy n [Right Arm] 76 76 Blood Pressure Pos ition Blood Pressure Pos ition [Right Arm] Pulse Oximetry 99 100 100 Oxygen Delivery Me thod Room Air Room Air Room Air Physical Exam: VITALS: Vitals are noted on the nurse's note and reviewed by myself. Vital signs stable. GENERAL: this is a 58-year-old white female , in no acute distress, nondiaphoretic, well-developed well-nourished. SKIN: Erythema of the right lower extremity extending from the ankle to the proximal nichols, just inferior to the knee. There is 1+ pitting edema. Moderate tenderness in the area. No open wounds, bleeding, discharge, or evidence of abscess. The skin was otherwise without rashes, erythema, edema, or bruising. There is no tenting of the skin. Capillary reflex less than 2 seconds. HEAD: Normocephalic atraumatic. EARS: External auditory canals clear, tympanic membranes pearly vargas without erythema or effusion bilaterally. EYES: Pupils equal round and reactive to light and accommodation. Conjunctivae without injection, sclerae without icterus. Extraocular movements intact. NOSE: Patent, turbinates without inflammation or discharge. No sinus tenderness. MOUTH: Mucous membranes moist. Tonsils are not enlarged. Pharynx without erythema or exudate. Uvula midline. Airway patent. Tongue does not deviate. NECK: Supple without nuchal rigidity. No lymphadenopathy. Cervical spine is nontender. No JVD. HEART: Regular rate and rhythm without murmurs gallops or rubs. LUNGS: Clear to auscultation bilaterally without wheezes, rales or rhonchi. No dullness to percussion. No retractions or accessory muscle use. ABDOMEN: Positive bowel sounds x 4. Normal tympanic percussion. Soft, nontender, without masses or organomegaly. Yusuf sign negative. No guarding or rebound tenderness. MUSCULOSKELETAL: No muscle atrophy, erythema, or edema noted. Full range of motion without joint tenderness in all extremities. No tenderness to palpation except as noted. Normal gait. Strength 5/5 throughout. NEURO: Patient was alert and oriented to person place and time. Normal sensation to light and sharp touch. Deep tendon reflexes 2+ throughout. No focal neurological deficits. Course The patient was seen and evaluated as above. IV access obtained, labs drawn. Previous medical records reviewed. The patient does have a history of Pseudomonas infection in the right lower extremity, as recent as June of this year. This was pansensitive. The patient has a distant history in 2004 of left lower extremity cellulitis for which she was successfully treated with Unasyn and Augmentin. I did speak with the ED pharmacist. We are agreeable to start the patient on Unasyn and Cipro while here in the ED. Labs reviewed by myself. I discussed the findings with the patient at bedside. I offered admission versus discharge home on p.o. antibiotics and the patient and her feel more comfortable with admission. Given the elevated lactic acid, I do feel that this is reasonable. I discussed the case with my attending. He did see and evaluate the patient. I discussed the case with the hospitalist, Marissa Combs PA-C. She did agree to see and evaluate the patient. Please see her dictation regarding ongoing management care of this patient. Administered Medications Calcium Citrate (Citracal) 950 mg PO BID VERO Stop: 12/24/18 20:59 Last Admin: 11/24/18 20:07 Dose: 950 mg Documented by: [id number] Gabapentin (Neurontin) 100 mg PO TID VERO Stop: 12/24/18 20:59 Last Admin: 11/24/18 20:08 Dose: 100 mg Documented by: [id number] Potassium Chloride/Sodium Chloride (Normal Saline W/20 Meq Kcl) 20 meq in 1,000 mls @ 100 mls/hr IV .Q10H VERO Stop: 11/25/18 03:29 Last Infusion: 11/24/18 20:14 Dose: 100 mls/hr Documented by: [id number] Infusion: 11/24/18 19:41 Dose: 0 mls/hr Documented by: [id number] Admin: 11/24/18 19:19 Dose: 100 mls/hr Documented by: [id number] Piperacillin Sod/Tazobactam (Sod 3.375 gm/ Dextrose) 115 mls @ 28.75 mls/hr IV Q8H VERO; Protocol Stop: 12/04/18 21:59 Last Admin: 11/24/18 21:27 Dose: 28.8 mls/hr Documented by: [id number] Miscellaneous (Remove Nicoderm Patch) 1 ea N/A HS VERO Stop: 12/24/18 20:59 Last Admin: 11/24/18 20:09 Dose: Not Given Documented by: [id number] Multivitamins/Folic Acid/Vitamin C (Flintstones Complete Chew Tab) 1 tab PO BID VERO Stop: 12/24/18 20:59 Last Admin: 11/24/18 20:07 Dose: 1 tab Documented by: [id number] Nicotine (Nicoderm Cq) 21 mg TD QAM VERO Stop: 12/24/18 15:29 Last Admin: 11/24/18 17:06 Dose: Not Given Documented by: [id number] Pantoprazole Sodium (Protonix) 40 mg PO BID VERO Stop: 12/24/18 20:59 Last Admin: 11/24/18 20:07 Dose: 40 mg Documented by: [id number] Sucralfate (Carafate Tab) 1 gm PO ACHS [facility] Stop: 12/24/18 16:58 Last Admin: 11/24/18 21:26 Dose: 1 gm Documented by: [id number] Admin: 11/24/18 19:20 Dose: 1 gm Documented by: [id number] Thiamine HCl (Vitamin B-1) 100 mg PO BID VERO Stop: 12/24/18 20:59 Last Admin: 11/24/18 20:07 Dose: 100 mg Documented by: [id number] Venlafaxine HCl (Effexor) 100 mg PO BID VERO Stop: 12/24/18 20:59 Last Admin: 11/24/18 20:06 Dose: 100 mg Documented by: [id number] Vitamin D (Vitamin D3) 2,000 units PO BID [facility] Stop: 12/24/18 20:59 Last Admin: 11/24/18 20:09 Dose: 2,000 units Documented by: [id number] Discontinued Medications Ceftriaxone Sodium (Rocephin) 1,000 mg in 50 mls @ 100 mls/hr IV NOW STA Stop: 11/24/18 12:52 Last Admin: 11/24/18 14:41 Dose: Not Given Documented by: [id number] Sodium Chloride (Nss 1000ml) 1,000 mls @ 999 mls/hr IV .Q1H1M ONE Stop: 11/24/18 13:23 Last Infusion: 11/24/18 15:29 Dose: 0 mls/hr Documented by: [id number] Admin: 11/24/18 13:19 Dose: 999 mls/hr Documented by: [id number] Ciprofloxacin (Cipro) 400 mg in 200 mls @ 200 mls/hr IV NOW STA Stop: 11/24/18 13:31 Last Infusion: 11/24/18 15:58 Dose: 0 mls/hr Documented by: [id number] Admin: 11/24/18 13:20 Dose: 200 mls/hr Documented by: [id number] Ampicillin Sodium/Sulbactam Sodium 3,000 mg/ Sodium Chloride 108 mls @ 200 mls/hr IV NOW STA; Protocol Stop: 11/24/18 13:04 Last Infusion: 11/24/18 13:59 Dose: 0 mls/hr Documented by: [id number] Admin: 11/24/18 13:20 Dose: 200 mls/hr Documented by: [id number] Piperacillin Sod/Tazobactam (Sod 3.375 gm/ Dextrose) 115 mls @ 230 mls/hr IV NOW ONE; Protocol Stop: 11/24/18 18:14 Last Infusion: 11/24/18 20:33 Dose: 0 mls/hr Documented by: [id number] Infusion: 11/24/18 20:14 Dose: 230 mls/hr Documented by: [id number] Infusion: 11/24/18 19:41 Dose: 0 mls/hr Documented by: [id number] Admin: 11/24/18 19:20 Dose: 230 mls/hr Documented by: [id number] Morphine Sulfate (Morphine Sulfate) 1 mg IV NOW STA Stop: 11/24/18 18:22 Last Admin: 11/24/18 19:20 Dose: 1 mg Documented by: [id number] Nicotine (Nicoderm Cq) Confirm Administered Dose 21 mg TD .STK-MED ONE Stop: 11/24/18 15:29 Last Admin: 11/24/18 15:29 Dose: 21 mg Documented by: [id number] Potassium Chloride (Klor-Con M20) 40 meq PO NOW STA Stop: 11/24/18 15:38 Last Admin: 11/24/18 16:17 Dose: 40 meq Documented by: [id number] Medical Decision Making Differential Diagnosis + abscess of skin or subcutaneous tissue, + viral exanthem, + dermatophytosis, + urticaria, + herpes zoster, + allergic reaction to drug, + cellulitis, + eczema, + insect bites, + impetigo, + contact dermatitis, + cellulitis, + necrotizing fasciitis, + foreign body, + dermatitis and + drug eruption Medical Records Attestation: I reviewed the patient's medical records. History of Pseudomonas infection on wound cultures in the right lower extremity. History of cellulitis in the left lower extremity responsive to Unasyn. Home Medications Current Medication List: was personally reviewed by me Laboratory Data Attestation: I reviewed the patient's lab results. No leukocytosis. Mild anemia with hemoglobin of 10.5 and hematocrit 31.6. No thrombocytopenia. Renal, hepatic function, and electrolytes without significant abnormality. INR mildly elevated 1.2. Lactic acid 3.3. C-reactive protein elevated at 8.55. Result diagrams: 11/24/18 13:05 11/24/18 13:05 Lab Results 07/23/19 07/23/19 07/23/19 Range/Units 12:49 13:05 13:05 WBC 5.95 (4.8-10.8) K/uL RBC 3.01 L (4.2-5.4) M/uL Hgb 10.5 L (12.0-16.0) g/dL Hct 31.6 L (37-47) % MCV 105.0 H (80-100) fL MCH 34.9 H (25-34) pg MCHC 33.2 (32-36) g/dL RDW Std Deviation 69.5 H (36.4-46.3) fL RDW Coeff of Liz 18.3 H (11.5-14.5) % Plt Count 188 (130-400) K/uL MPV 10.3 (7.4-10.4) fL Immature Gran % (Auto) 0.2 % Neut % (Auto) 73.8 % Lymph % (Auto) 16.6 % [place] % (Auto) 8.9 % Eos % (Auto) 0.2 % Baso % (Auto) 0.3 % Immature Gran # (Auto) 0.01 (0.00-0.02) K/uL Neut # (Auto) 4.39 (1.4-6.5) K/uL Lymph # (Auto) 0.99 L (1.2-3.4) K/uL [place] # (Auto) 0.53 (0.11-0.59) K/uL Eos # (Auto) 0.01 (0-0.5) K/uL Baso # (Auto) 0.02 (0-0.2) K/uL PT 12.3 H (9.0-12.0) Seconds INR 1.2 H (0.9-1.1) APTT 33.3 H (21.0-31.0) Seconds PTT Ratio 1.2 Sodium (136-145) mmol/L Potassium (3.5-5.1) mmol/L Chloride (98-107) mmol/L Carbon Dioxide (21-32) mmol/L Anion Gap (3-11) BUN (7-18) mg/dl Creatinine (0.6-1.2) mg/dl Est Cr Clr Drug Dosing ml/min Est GFR ( Amer) Est GFR (Non-Af Amer) BUN/Creatinine Ratio (10-20) Glucose (70-99) mg/dl Lactate 3.3 H* (0.4-2.0) mmol/L Calcium (8.5-10.1) mg/dl Magnesium (1.8-2.4) mg/dl Total Bilirubin (0.2-1) mg/dl AST (15-37) U/L ALT (12-78) U/L Alkaline Phosphatase (45-117) U/L C-Reactive Protein (0-0.29) mg/dl Total Protein (6.4-8.2) gm/dl Albumin (3.4-5.0) gm/dl Globulin (2.5-4.0) gm/dl Albumin/Globulin Ratio (0.9-2) 11/24/18 11/24/18 Range/Units 13:05 13:05 WBC (4.8-10.8) K/uL RBC (4.2-5.4) M/uL Hgb (12.0-16.0) g/dL Hct (37-47) % MCV (80-100) fL MCH (25-34) pg MCHC (32-36) g/dL RDW Std Deviation (36.4-46.3) fL RDW Coeff of Liz (11.5-14.5) % Plt Count (130-400) K/uL MPV (7.4-10.4) fL Immature Gran % (Auto) % Neut % (Auto) % Lymph % (Auto) % [place] % (Auto) % Eos % (Auto) % Baso % (Auto) % Immature Gran # (Auto) (0.00-0.02) K/uL Neut # (Auto) (1.4-6.5) K/uL Lymph # (Auto) (1.2-3.4) K/uL [place] # (Auto) (0.11-0.59) K/uL Eos # (Auto) (0-0.5) K/uL Baso # (Auto) (0-0.2) K/uL PT (9.0-12.0) Seconds INR (0.9-1.1) APTT (21.0-31.0) Seconds PTT Ratio Sodium 142 (136-145) mmol/L Potassium 3.0 L (3.5-5.1) mmol/L Chloride 110 H (98-107) mmol/L Carbon Dioxide 25 (21-32) mmol/L Anion Gap 8.0 (3-11) BUN 8 (7-18) mg/dl Creatinine 0.85 (0.6-1.2) mg/dl Est Cr Clr Drug Dosing 59.7 ml/min Est GFR ( Amer) 87.5 Est GFR (Non-Af Amer) 75.5 BUN/Creatinine Ratio 9.7 L (10-20) Glucose 145 H (70-99) mg/dl Lactate (0.4-2.0) mmol/L Calcium 8.2 L (8.5-10.1) mg/dl Magnesium 1.8 (1.8-2.4) mg/dl Total Bilirubin 0.8 (0.2-1) mg/dl AST 18 (15-37) U/L ALT 31 (12-78) U/L Alkaline Phosphatase 135 H (45-117) U/L C-Reactive Protein 8.55 H (0-0.29) mg/dl Total Protein 5.0 L (6.4-8.2) gm/dl Albumin 2.1 L (3.4-5.0) gm/dl Globulin 2.9 (2.5-4.0) gm/dl Albumin/Globulin Ratio 0.7 L (0.9-2) Blood Pressure Blood Pressure Findings: Normal blood pressure MDM Narrative This 58-year-old female patient presents emergency department today complaining of right lower extremity erythema, edema, and cellulitis. This was atraumatic in nature. There are no open wounds, however the patient does have old wounds in this extremity with history of Pseudomonas infection. Laboratory work-up here in the ED does not show any significant leukocytosis, however there is an elevated C-reactive protein of 8.55. The patient's lactic acid level is elevated at 3.3. I did speak with the ED pharmacist to discuss the most appropriate treatment given the patient's history. We did agree to start the patient on Unasyn and Cipro IV. Given the elevated inflammatory markers and lactic acid, we did feel it reasonable to admit the patient for evaluation and management of the cellulitis. The patient will be admitted as an inpatient under the [facility] service. Please see their dictation regarding ongoing management care of this patient. The chart was completed utilizing Dragon Speech voice recognition software. Grammatical errors, random word insertions, pronoun errors, and incomplete sentences are an occasional consequence of this system due to software limitations, ambient noise, and hardware issues. Any formal questions or concerns about the content, text, or information contained within the body of this dictation should be directly addressed to the provider for clarification. Impression & Plan Cellulitis of right lower extremity without foot Discharge Plan Visit Data *Final* Discharge Date/Time: 11/24/18 16:47 Chief Complaint: Leg Injury/Pain Stated Complaint: RIGHT LEG CELLULITIS ED Provider: Herman Abraham ED Midlevel Provider: Sandra Talavera Discharge Problem: Cellulitis of right lower extremity without foot Patient Disposition: Admitted As Inpatient Condition: Good Discharge Instructions Interventions: ED Discharge Assessment Last Done: 11/24/18 16:47
[2018-11-24] MEDS ORDERED: NICOTINE 21 MG/24 HR TDSY TD ONE (15:28)
[2018-11-24] MEDS ORDERED: POTASSIUM CHLORIDE 20 MEQ TABCR PO STA (15:37)
--- NOTE | 2018-11-24 15:38 | History & Physical Report ---
Date of Service November 24, 2018 Assessment & Plan (1) Cellulitis: RLE Cellulitis Pt presented with RLE edema, erythema, warmth and tenderness that started yesterday. Denies fever/chills, N/V. Denies injury/trauma, recent open wounds. Hx wound to RLE in 2018 +pseudomonas on culture In ER pt afebrile, P: 77, R: 17, BP: 97/60, 99% on RA. WBC: 5, lactic acid: 3.3 -In ER given Unasyn, Cipro IV, 1L NSS -Pending US RLE to R/O DVT -MRSA swab -Pending blood cultures -Repeat lactic acid is 2.0 -Zosyn -IVF -Monitor CBC (2) Hypokalemia: K: 3.0 Pt did not have her daily potassium supplement today secondary to EGD this am -Replace and monitor (3) Gastric bypass status for obesity: -Continue supplements -Boost daily (4) GERD (gastroesophageal reflux disease): -Continue PPI, Carafate (5) Depression: -Continue Effexor (6) Tobacco use: -Smoking cessation encourage -Nicotine Patch DVT Prophylaxis -Jeanmarie, SCDs DNR/DNI as per discussion with pt Follows with Dr Ceron for routine care Pt was seen and care coordinated with Dr Bernard. See addendum History of Present Illness Chief Complaint: Right leg redness Primary Care Provider: Kvng Ceron, Pt is 58 y/o F with PMH depression, H/O gastric bypass, RLS, GERD, fibromyalgia, H/O venous stasis presented to ER with c/o RLE erythema and edema x 1 day. Patient with history of right leg wound and cellulitis fall 2017. Previous wound culture from the right leg 02/2018: Pseudomonas, Corynebacterium. Patient reports ulcer to right lower leg has been resolved for several months and is no longer followed up with wound clinic. hx R leg wound culture 06/2018: pseudomonas, Enterobacter. Patient states yesterday noticed some discomfort to right lower leg and noticed leg was swollen and red. Denies any noted open areas or discharge. Denies any known injury or trauma recently. Denies fevers chills. Pt reports easy bruising and skin tears and states has bruising to BLE upper extremities. She states has puppy that has scratched her left lower leg but denies any noted edema, erythema to left leg. Patient had scheduled EGD today which showed no endoscopic abnormality however dilation was completed secondary to dysphagia. Patient reports doing well post EGD. Denies recent travel, diaphoresis, N/V/D/C, GRAJEDA, dizziness, syncope, vision changes, neck pain, CP, SOB, orthopnea, palpitations, cough, sore throat, choking, otalgia, rhinorrhea, abdominal pain, paresthesias, weakness, urinary symptoms. Allergies Allergy/AdvReac Type Severity Reaction Status Date / Time codeine Allergy Intermediate DIARRHEA/RASH,TOLERATES Verified 11/24/18 14:04 PERCOCET duloxetine Allergy Intermediate felt like Verified 11/24/18 14:04 crawling out of her skin NSAIDS (Non-Steroidal Allergy Unknown pt states Verified 11/24/18 14:04 Anti-Inflamma she is not allowed to take d/t gastric bypass Bactrim AdvReac Intermediate DELIRIUM Verified 12/28/17 19:46 clonazepam AdvReac Intermediate "PASS OUT" Verified 11/24/18 14:04 hydrocodone AdvReac Intermediate OVER Verified 11/24/18 14:04 SEDATION hydromorphone AdvReac Intermediate weakness,sw Verified 11/24/18 14:04 eating sulfamethoxazole AdvReac Intermediate DELIRIUM Verified 11/24/18 14:04 trimethoprim AdvReac Intermediate DELIRIUM Verified 11/24/18 14:04 aspirin AdvReac Mild STOMACH Verified 11/24/18 14:04 IRRITATION cephalexin AdvReac Mild GI SYMPTOMS Verified 11/24/18 14:04 Home Medications Home Medications Medication Instructions Recorded Confirmed Type albuterol sulfate [Ventolin HFA] 2 puff INHALATION QID PRN 01/04/18 11/24/18 History gabapentin 100 mg PO TID 01/04/18 11/24/18 History omeprazole 20 mg PO BID 01/04/18 11/24/18 History sucralfate 1 g PO ACHS 01/04/18 11/24/18 History cyanocobalamin (vitamin B-12) 1,000 mcg IM MONTHLY 03/24/18 11/24/18 History potassium chloride 20 meq PO QAM 09/23/18 11/24/18 History venlafaxine 100 mg PO BID 09/23/18 11/24/18 History Flintstones with Iron 1 tab PO BID 11/20/18 11/24/18 History Whey Protein 1 ea PO BID 11/20/18 11/24/18 History cholecalciferol (vitamin D3) 2,000 unit PO BID 11/20/18 11/24/18 History [Vitamin D3] nystatin 1 applic TOPICAL TID PRN 11/20/18 11/24/18 History ondansetron HCl 4 mg PO Q8 PRN 11/20/18 11/24/18 History thiamine HCl (vitamin B1) 100 mg PO BID 11/20/18 11/24/18 History zinc gluconate 50 mg PO QAM 11/20/18 11/24/18 History calcium citrate 200 mg PO BID 11/24/18 11/24/18 History food supplemt, lactose-reduced 1 ea PO DAILY 11/24/18 11/24/18 History [Ensure] magnesium 200 mg PO DAILY 11/24/18 11/24/18 History Past Med/Surg History Medical History Chronic obstructive pulmonary disease (Chronic) inhaler prn Cardiac murmur (Chronic) faint Fatty liver (Chronic) History of gastric ulcer (Chronic) Elevated liver enzymes (Chronic) per pt currently elevated Chronic kidney disease, stage 3 (Chronic) 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 Chronic back pain (Chronic) Degenerative disc disease (Chronic) Spinal stenosis (Chronic) Dysphagia (Chronic) Congestive heart failure, unspecified (Chronic 08/09/12) "echo 03/25/13-grade 1 diastolic dysfunction with mild concentric LVH" GERD (gastroesophageal reflux disease) (Chronic) Fibromyalgia (Chronic) Osteoarthritis (Chronic) Anxiety (Chronic) Dyslipidemia (Chronic) Organic sleep disorder (Chronic) Hematoma of right lower extremity (Resolved) Marijuana abuse (Resolved) Opiate abuse, continuous (Resolved) Traumatic wound (Resolved) Venous stasis ulcer (Resolved) CHF (congestive heart failure) (Chronic) hx of Osteoarthritis (Chronic) Surgical History History of wisdom tooth extraction (Chronic) History of tooth extraction (Chronic) History of cholecystectomy (Chronic) History of esophagogastroduodenoscopy (EGD) (Chronic) History of colonoscopy (Chronic) History of arthroscopy of right knee (Chronic) Hx of repair of right rotator cuff (Chronic) History of repair of hiatal hernia (Chronic) Gastric bypass status for obesity (Chronic) Hx of appendectomy (Chronic) H/O arthroscopic knee surgery (Chronic) "R knee; 1998" S/P bronchoscopy (Chronic) Status post repair of paraesophageal diaphragmatic hernia (Chronic) "Dr. Shay [facility] [place] 01/20/17" Hx of gastric bypass (Chronic) Family History Other Family history not known due to adoption Social History Preferred Language: Spanish Communication Ability: Effective Visual Impairment: No Limitations Hearing Ability: Normal Jewel Grinder Required: No Beliefs That Will Affect Care: None marital status: Current Living Situation: Significant Other Current Living Situation Comment: lives with fiance current occupational status: unemployed Other Information That Helps Us Care for You: No Feels Safe at Home: Yes Safety Concerns: Feels Safe At This Time Smoking Status: Current every day smoker Tobacco Type: cigarettes Cigarettes Per Day: 1ppd Do You Dip or Chew Tobacco: No Second Hand Exposure: Yes (father smokes) Tobacco Cessation Education Requested by Patient: No Hx Alcohol Use: Yes Alcohol type: wine Alcohol type Comment: 1 glass wine daily Hx Substance Use: No during the past year weight has: other Review of Systems Review of Systems: All systems reviewed & are unremarkable except as noted in HPI & below Physical Exam Physical Exam: General: no acute distress, WDWN Head: normocephalic, atraumatic Eyes: PERRL, EOM's intact, conjunctiva non-injected, anicteric ENT: normal inspection external ears, nose, mucous membranes moist Neck: supple, trachea midline, non-tender Lungs: clear, no respiratory distress, no wheezing/rhonchi/rales CV: RRR, no murmur, no JVD, no pretibial edema Abd: normal BS, soft, non-tender Ext: no cyanosis; RLE: +warmth, edema, erythema to lower leg from knee to foot with tenderness to palpation, no opens areas noted, LLE: +abrasions to lower leg without surrounding erythema or edema, distal pulses intact, brisk capillary refill Neuro: A&O x 3, no focal deficits noted, normal affect Skin: warm, dry; multiple ecchymosis to BUE, as above Results & Data Vital Signs (Past 12 Hours) Vital Signs Temp Pulse Pulse Resp BP BP Pulse Ox 11/24/18 15:01 68 22 93/55 L 100 11/24/18 14:45 86 20 100/65 100 11/24/18 13:56 83 20 100/65 99 11/24/18 12:45 80 18 100 11/24/18 12:10 78 18 96/57 L 100 11/24/18 11:47 36.5 C 77 17 97/60 L 99 Laboratory Results Short CBC 11/24/18 Range/Units 13:05 WBC 5.95 (4.8-10.8) K/uL Hgb 10.5 L (12.0-16.0) g/dL Hct 31.6 L (37-47) % Plt Count 188 (130-400) K/uL BMP 11/24/18 13:05 Sodium 142 Potassium 3.0 L Chloride 110 H Carbon Dioxide 25 BUN 8 Creatinine 0.85 Glucose 145 H Calcium 8.2 L Liver Function 11/24/18 Range/Units 13:05 Total Bilirubin 0.8 (0.2-1) mg/dl AST 18 (15-37) U/L ALT 31 (12-78) U/L Alkaline Phosphatase 135 H (45-117) U/L Albumin 2.1 L (3.4-5.0) gm/dl Supervising Physician Co-Signing Physician Notes I, Dr. Camilo Bernard, have seen and examined the patient with physician paperhanger assistant and agree with the assessment and plan as above and would like to comment that patient initially present to the hospital today for upper endoscopy for history of dysphagia and while the upper endoscopy for unremarkable, patient also has been having right lower extremity cellulitis for which she has been admitted to the hospital for. On exam, the right lower extremity is very red and larger than the left leg. There is No DVT within the right lower extremity on ultrasound sound. Patient was given antibiotics in the ED and will be continued on antibiotics on the medical seals for now as Zosyn. Blood cultures need to be followed Agree with other assessment and plans as documented by physician paperhanger assistant for GERD and gastric bypass history and hypokalemia and tobacco use. 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 Traore starting on 11/25/18
--- NOTE | 2018-11-24 15:57 | Emergency Department Note ---
ED Visit Note Physician Evaluation Note: I have personally evaluated and examined this patient. I agree with assessment and plan of Sandra Talavera PA-C. Pleasant 58 yr old female with cellulitis of left lateral leg extending from ankle to knee and radiating around calf. No compartment syndrome, no distal n/v issues and otherwise she looks well. She does have mild lactic acidosis. Cultures obtained and abx iv started. Herman Abraham MD
[2018-11-24] MEDS ORDERED: ACETAMINOPHEN 325 MG TAB PO PRN (16:59)
[2018-11-24] MEDS: NICOTINE 21 MG/24 HR TDSY TD SCH (17:06)
[2018-11-24] MEDS ORDERED: NSS + 20MEQ KCL 20 MEQ/1,000 ML BAG IV SCH (17:30)
--- NOTE | 2018-11-24 17:31 | Ultrasound Report ---
RIGHT LOWER EXTREMITY VENOUS DOPPLER HISTORY: R leg edema r/o DVT COMPARISON STUDY: None. FINDINGS: There is normal compressibility, flow, and augmentation within the right lower extremity de ep venous system. Diffuse subcutaneous edema within the lower leg. The calf vessels were suboptimally evaluated but appear grossly patent. IMPRESSION: No DVT within the right lower extremity Electronically signed by: Elmer Quan M.D. 11/24/2018 5:30 PM
[2018-11-24] MEDS ORDERED: PIPERACILL/TAZOBAC CONSULT ACTIVE PRN (17:37)
[2018-11-24] MEDS ORDERED: PIPERACILLIN/TAZOBACTAM 3.375 GM in DEXTROSE 5% 100 ML IV ONE (17:45)
[2018-11-24] MEDS ORDERED: MoRPHine SULFATE 2 MG/ML CARP IV STA (18:21)
[2018-11-24] MEDS: SUCRALFATE 1 GM TAB PO SCH ×2 (19:20→21:26)
[2018-11-24] MEDS: VENLAFAXINE HCL 50 MG TAB PO SCH (20:06)
[2018-11-24] MEDS: THIAMINE HCL 100 MG TAB PO SCH (20:07)
[2018-11-24] MEDS: PANTOprazole 40 MG TAB PO SCH (20:07)
[2018-11-24] MEDS: FLINTSTONES COMPLETE CHEWABLE TAB PO SCH (20:07)
[2018-11-24] MEDS: CALCIUM CITRATE 950 MG TAB PO SCH (20:07)
[2018-11-24] MEDS: GABAPENTIN 100 MG CAP PO SCH (20:08)
[2018-11-24] MEDS: CHOLECALCIFEROL 1,000 UNITS TAB PO SCH (20:09)
[2018-11-24] MEDS: PIPERACILLIN/TAZOBACTAM 3.375 GM in DEXTROSE 5% 100 ML IV SCH (21:27)
[2018-11-24] MEDS ORDERED: LOPERAMIDE HCL 2 MG CAP PO STA (22:14)
[2018-11-25] MEDS: PIPERACILLIN/TAZOBACTAM 3.375 GM in DEXTROSE 5% 100 ML IV SCH (05:11)
[2018-11-25 05:43] VITALS: O2SAT 99
[2018-11-25 07:04] LABS: Hematocrit (blood only) 26.6 % (37-47); Hemoglobin 8.8 g/dL (12.0-16.0); Mean Corpuscular Hgb Conc 33.1 g/dL (32-36); Mean Corpuscular Volume 104.3 fL (80-100); Mean Platelet Volume 10.4 fL (7.4-10.4); Platelet Count 176 K/uL (130-400); RDW Coefficient of Variation 18.3 % (11.5-14.5); RDW Standard Deviation 69.4 fL (36.4-46.3); Red Blood Count 2.55 M/uL (4.2-5.4); White Blood Count 3.82 K/uL (4.8-10.8)
[2018-11-25 07:30] VITALS: PULSE 71; TEMP 98.2
[2018-11-25 07:47] LABS: Albumin Globulin Ratio 0.7 (0.9-2); Albumin Level 1.7 gm/dl (3.4-5.0); Bilirubin,Total 0.5 mg/dl (0.2-1); Calcium 7.5 mg/dl (8.5-10.1); Est GFR (Non-African American) 92.3; Globulin 2.6 gm/dl (2.5-4.0); Magnesium 1.8 mg/dl (1.8-2.4); Potassium 4.3 mmol/L (3.5-5.1); Total Protein 4.3 gm/dl (6.4-8.2)
[2018-11-25] MEDS: NICOTINE 21 MG/24 HR TDSY TD SCH (08:01)
[2018-11-25] MEDS: GABAPENTIN 100 MG CAP PO SCH (08:01)
[2018-11-25] MEDS: THIAMINE HCL 100 MG TAB PO SCH (08:01)
[2018-11-25] MEDS: SUCRALFATE 1 GM TAB PO SCH (08:01)
[2018-11-25] MEDS: CALCIUM CITRATE 950 MG TAB PO SCH (08:01)
[2018-11-25] MEDS: CHOLECALCIFEROL 1,000 UNITS TAB PO SCH (08:02)
[2018-11-25] MEDS: VENLAFAXINE HCL 50 MG TAB PO SCH (08:02)
[2018-11-25] MEDS: FLINTSTONES COMPLETE CHEWABLE TAB PO SCH (08:02)
[2018-11-25] MEDS: PANTOprazole 40 MG TAB PO SCH (08:03)
--- NOTE | 2018-11-25 08:28 | Hospitalist Progress Note ---
Date of Service November 25, 2018 Assessment & Plan (1) Cellulitis: RLE Cellulitis Significant clinical improvement with IV Antibiotics. Erythema has almost resolved. Persistent swelling still worse than at baseline (lymphedema), minimal tenderness, warmth. More than 80% improvement -Afebrile, no leucocytosis -S/P Unasyn, Cipro IV in ED. IV Zosyn - Day 2 -Work up - MRSA swab - Negative. Pending blood cultures. Venous duplex- Negative for DVT -Continue with compression stockings (2) Hypokalemia: Resolved Pt did not have her daily potassium supplement today secondary to EGD this am (3) Gastric bypass status for obesity: -Continue supplements -Boost daily (4) GERD (gastroesophageal reflux disease): -Continue PPI, Carafate (5) Depression: -Continue Effexor (6) Tobacco use: -Smoking cessation encourage -Nicotine Patch DVT Prophylaxis -Jeanmarie, SCDs Disposition Ok to discharge home today DNR/DNI as per discussion with pt Follows with Dr Ceron for routine care Subjective Patient is doing much better. Redness and right lower extremity has almost resolved. Swelling persistent, still worse than baseline. Pain is improved. No fever, chills. Physical Exam Physical Exam: GENERAL- AAOX3, No acute distress LUNGS- Air entry bilaterally equal. No rales, rhonchi, crackles, wheezes heard. HEART- Regular rate and rhythm. No murmurs ABDOMEN- Soft, non tender, non distended, Bowel sounds heard. EXTREMITIES- RLE- Significant swelling extending up to below knee. Chronic lymphedema. Erythema has almost resolved. Scar from prior wound. No open wounds. Warmth - improved. LLE- Swelling, Compression stocking +, no Erythema Results & Data Vital Signs (Past 12 Hours) Vital Signs Temp Pulse Pulse Resp BP Pulse Ox 11/25/18 07:29 36.8 C 71 18 94/60 L 11/25/18 07:27 79 11/25/18 05:45 93/59 L 11/25/18 05:43 36.6 C 74 19 87/54 L 99 11/25/18 00:00 79 11/24/18 23:00 36.7 C 68 18 108/70 95
[2018-11-25] MEDS ORDERED: NON-FORMULARY MEDICATION (Zinc Gluconate 50 MG) PO SCH (09:00)
[2018-11-25] MEDS ORDERED: POTASSIUM CHLORIDE 20 MEQ TABCR PO SCH (09:00)
[2018-11-25] MEDS ORDERED: MAGNESIUM OXIDE 400 MG TAB PO SCH (09:00)
--- NOTE | 2018-11-25 10:05 | Discharge Summary ---
Date of Service November 25, 2018 Admission HPI Per Admitting Provider Pt is 58 y/o F with PMH depression, H/O gastric bypass, RLS, GERD, fibromyalgia, H/O venous stasis presented to ER with c/o RLE erythema and edema x 1 day. Patient with history of right leg wound and cellulitis fall 2017. Previous wound culture from the right leg 02/2018: Pseudomonas, Corynebacterium. Patient reports ulcer to right lower leg has been resolved for several months and is no longer followed up with wound clinic. hx R leg wound culture 06/2018: pseudomonas, Enterobacter. Patient states yesterday noticed some discomfort to right lower leg and noticed leg was swollen and red. Denies any noted open areas or discharge. Denies any known injury or trauma recently. Denies fevers chills. Pt reports easy bruising and skin tears and states has bruising to BLE upper extremities. She states has puppy that has scratched her left lower leg but denies any noted edema, erythema to left leg. Patient had scheduled EGD today which showed no endoscopic abnormality however dilation was completed secondary to dysphagia. Patient reports doing well post EGD. Denies recent travel, diaphoresis, N/V/D/C, GRAJEDA, dizziness, syncope, vision changes, neck pain, CP, SOB, orthopnea, palpitations, cough, sore throat, choking, otalgia, rhinorrhea, abdominal pain, paresthesias, weakness, urinary symptoms. Principal Diagnosis 1. Right lower extremity cellulitis 2. Hypokalemia Secondary diagnosis on discharge 1. Gastric bypass status for obesity 2. GERD 3. Depression 4. Tobacco abuse disorder Discharge Exam GENERAL- AAOX3, No acute distress LUNGS- Air entry bilaterally equal. No rales, rhonchi, crackles, wheezes heard. HEART- Regular rate and rhythm. No murmurs ABDOMEN- Soft, non tender, non distended, Bowel sounds heard. EXTREMITIES- RLE- Significant swelling extending up to below knee. Chronic lymphedema. Erythema has almost resolved. Scar from prior wound. No open wounds. Warmth - improved. LLE- Swelling, Compression stocking +, no Erythema Discharge Data Allergies Allergy/AdvReac Type Severity Reaction Status Date / Time codeine Allergy Intermediate DIARRHEA/RASH,TOLERATES Verified 11/24/18 14:04 PERCOCET duloxetine Allergy Intermediate felt like Verified 11/24/18 14:04 crawling out of her skin NSAIDS (Non-Steroidal Allergy Unknown pt states Verified 11/24/18 14:04 Anti-Inflamma she is not allowed to take d/t gastric bypass Bactrim AdvReac Intermediate DELIRIUM Verified 12/28/17 19:46 clonazepam AdvReac Intermediate "PASS OUT" Verified 11/24/18 14:04 hydrocodone AdvReac Intermediate OVER Verified 11/24/18 14:04 SEDATION hydromorphone AdvReac Intermediate weakness,sw Verified 11/24/18 14:04 eating sulfamethoxazole AdvReac Intermediate DELIRIUM Verified 11/24/18 14:04 trimethoprim AdvReac Intermediate DELIRIUM Verified 11/24/18 14:04 aspirin AdvReac Mild STOMACH Verified 11/24/18 14:04 IRRITATION cephalexin AdvReac Mild GI SYMPTOMS Verified 11/24/18 14:04 Consultations 11/24/18 14:30 ED Decision to Admit Stat Ordered Studies 11/24/18 15:23 US venous doppler LE RT Urgent Hospital Course (1) Cellulitis: RLE Cellulitis Significant clinical improvement with IV Antibiotics. Erythema has almost resolved. Persistent swelling still worse than at baseline (lymphedema), minimal tenderness, warmth. More than 80% improvement -Afebrile, no leucocytosis -S/P Unasyn, Cipro IV in ED. IV Zosyn - Day 2 --> Change to Doxycycline x 6 more days to complete 7 days of antibiotics -Work up - MRSA swab - Negative. Pending blood cultures. Venous duplex- Negative for DVT -Continue with compression stockings (2) Hypokalemia: Resolved Pt did not have her daily potassium supplement today secondary to EGD this am (3) Gastric bypass status for obesity: -Continue supplements -Boost daily (4) GERD (gastroesophageal reflux disease): -Continue PPI, Carafate (5) Depression: -Continue Effexor (6) Tobacco use: -Smoking cessation encourage -Nicotine Patch DVT Prophylaxis -Jeanmarie, SCDs Disposition Ok to discharge home today DNR/DNI as per discussion with pt Follows with Dr Ceron for routine care Total Time Total Time Spent Total Time Spent (In Minutes): 35 minutes Discharge Plan Discharge Items Patient Disposition: Home - Self-Care Reason For Visit: RIGHT LEG CELLULITIS Discharge Diagnosis: Right lower extremity cellulitis Condition: Good Discharge Goals: Decrease discomfort Activity: Resume your previous activity Activity Comment: Recommend compression stockings Non-emergency contact: Primary Care Provider Call non-emergency contact if: your symptoms worsen Follow-up/Referrals: Sandra Allen [Other] - 11/30/18 12:45 pm Diet: Regular Addtl Provider Instructions: MEDICATION CHANGES New medication- Doxycycline x 6 more days to complete 7 day course of antibiotics Follow up pending blood cultures Prescriptions: New doxycycline hyclate 100 mg capsule 100 mg PO BID 6 Days Qty: 12 RF: 0 Continued gabapentin 100 mg Capsule 100 mg PO TID RF: 0 sucralfate 1 gram Tablet 1 g PO ACHS RF: 0 omeprazole 20 mg Capsule,Delayed Release(Dr/Ec) 20 mg PO BID RF: 0 albuterol sulfate [Ventolin HFA] 90 mcg/actuation Hfa Aerosol Inhaler 2 puff INHALATION QID PRN (Reason: Shortness Of Breath Or Wheezing) RF: 0 venlafaxine 100 mg tablet 100 mg PO BID RF: 0 potassium chloride 20 mEq tablet,ER particles/crystals 20 meq PO QAM RF: 0 ondansetron HCl 4 mg Tablet 4 mg PO Q8 PRN (Reason: Nausea) RF: 0 thiamine HCl (vitamin B1) 100 mg Tablet 100 mg PO BID RF: 0 zinc gluconate 50 mg Tablet 50 mg PO QAM RF: 0 nystatin 100,000 unit/gram Powder 1 applic TOPICAL TID PRN (Reason: Rash) RF: 0 cholecalciferol (vitamin D3) [Vitamin D3] 2,000 unit Capsule 2,000 unit PO BID RF: 0 Flintstones with Iron 18 mg iron Tablet,Chewable 1 tab PO BID RF: 0 Whey Protein 20 gram-140 kcal/39 gram Powder 1 ea PO BID RF: 0 magnesium 200 mg Tablet 200 mg PO DAILY RF: 0 Ensure Liquid 1 ea PO DAILY RF: 0 calcium citrate 200 mg (950 mg) Tablet 200 mg PO BID RF: 0 cyanocobalamin (vitamin B-12) 1,000 mcg/mL Solution 1,000 mcg IM MONTHLY RF: 0 Stand-Alone Forms: [facility] Discharge Orders: Discharge Order (Routine); Ordered 11/25/18 Ordered By: Louise Traore Admission Data Admit Date/Time: 11/24/18 15:37 Attending Provider: Louise Traore Admit Provider: Camilo Bernard Primary Care Provider: Kvng Ceron Other Providers: Camilo Bernard ; Judy Cortez Service: Telemetry Medical Other Pending Studies at Discharge: Yes Studies:: FOLLOW UP BLOOD CULTURES
[2018-11-25 10:37] VITALS: BP 109/76
== END 2018-11-25 11:27 | disposition home or self-care (01) | DRG 603 ==
LOC: ED 11:41 → 2N 15:37 → SUATTDRO 15:37 → 2N 16:47

== ENCOUNTER 2019-05-17 16:13 | Inpatient (IN) ==
[2019-05-17] MEDS ORDERED: SODIUM CHLORIDE 0.9% 1000ML 2,000 ML IV ONE (16:45)
[2019-05-17] MEDS: LEVOFLOXACIN/D5W 750 MG/150 ML BAG IV SCH ×2 (17:04→19:44)
[2019-05-17 17:08] LABS: iSTAT Creatinine 1.1 mg/dl (0.6-1.3); iSTAT Hemoglobin 11.2 g/dl (12.0-16.0); iSTAT Ionized Calcium 1.1 mmol/l (1.12-1.32); iSTAT Potassium 3.1 mmol/L (3.3-5.0)
[2019-05-17 17:15] LABS: Basophils # (auto) 0.01 K/uL (0-0.2); Basophils % (auto) 0.1 %; Eosinophils # (auto) 0.02 K/uL (0-0.5); Eosinophils % (auto) 0.2 %; Hematocrit (blood only) 32.3 % (37-47); Hemoglobin 10.8 g/dL (12.0-16.0); Immature Granulocytes # (auto) 0.04 K/uL (0.00-0.02); Immature Granulocytes % (auto) 0.5 %; Lymphocytes # (auto) 1.15 K/uL (1.2-3.4); Lymphocytes % (auto) 13.7 %; Mean Corpuscular Hemoglobin 35.4 pg (25-34); Mean Corpuscular Hgb Conc 33.4 g/dL (32-36); Mean Corpuscular Volume 105.9 fL (80-100); Mean Platelet Volume 10.5 fL (7.4-10.4); Monocytes # (auto) 0.62 K/uL (0.11-0.59); Monocytes % (auto) 7.4 %; Neutrophils # (auto) 6.53 K/uL (1.4-6.5); Neutrophils % (auto) 78.1 %; Platelet Count 196 K/uL (130-400); RDW Coefficient of Variation 16.4 % (11.5-14.5); RDW Standard Deviation 63.4 fL (36.4-46.3); Red Blood Count 3.05 M/uL (4.2-5.4); White Blood Count 8.37 K/uL (4.8-10.8)
[2019-05-17 17:27] LABS: INR 1.2 (0.9-1.1); Partial Thromboplastin Ratio 1.1; Partial Thromboplastin Time 29.9 Seconds (21.0-31.0); Prothrombin Time 12.6 Seconds (9.0-12.0)
[2019-05-17] MEDS ORDERED: PIPERACILLIN/TAZOBACTAM 3.375 GM/115 ML BAG IV STA (17:29)
[2019-05-17] MEDS ORDERED: PIPERACILL/TAZOBAC CONSULT ACTIVE PRN (17:29)
[2019-05-17 17:30] LABS: Base Excess VBG -6.8 mEq/L; HCO3 VBG 19 mmol/L; Oxygen Saturation VBG < 60.0 %; PCO2 VBG 38 mmHg (38-50); PO2 VBG 31 mmHg; pH VBG 7.32 (7.36-7.41)
[2019-05-17] MEDS ORDERED: ASPIRIN CHEW 324 MG PO STA (17:30)
[2019-05-17 17:40] LABS: Albumin Level 1.7 gm/dl (3.4-5.0); BUN Creatinine Ratio 12.9 (10-20); Calcium 8.3 mg/dl (8.5-10.1); Creatinine Clr Calc Pharmacy 50.6 ml/min; Est GFR (African American) 72.3; Est GFR (Non-African American) 62.4; Potassium 3.1 mmol/L (3.5-5.1)
[2019-05-17 17:44] LABS: Albumin Globulin Ratio 0.4 (0.9-2); Bilirubin,Total 0.5 mg/dl (0.2-1); Total Protein 5.7 gm/dl (6.4-8.2); Troponin I 0.02 ng/ml (0-0.045)
[2019-05-17] MEDS ORDERED: OPTIRAY 320 125ml IV PRN (17:55)
[2019-05-17 17:57] LABS: Influenza A virus by PCR Neg for Influ A (Neg); Influenza B virus by PCR Neg for Influ B (Neg)
[2019-05-17] MEDS ORDERED: HEPARIN SODIUM/DEXTROSE 25,000 UNITS/500 ML BAG IV SCH ×2 (18:00→20:41)
--- NOTE | 2019-05-17 18:02 | CT Scan Report ---
CT angio chest PE protocol CT DOSE: 266.85 mGycm HISTORY: Dyspnea sob hypotension cp tachy TECHNIQUE: Multiaxial CT images of the chest were performed following the intravenous administration of contrast to evaluate the pulmonary arteries. Maximal intensity projection images were also obtaine d. A dose lowering technique was utilized adhering to the principles of ALARA. COMPARISON STUDY: None. FINDINGS: Extensive bilateral pulmonary emboli. This involves the main pulmonary arteries bilaterally with extension of the left main pulmonary arterial thrombus to the main pulmonary artery. Poorly defined parenchymal infiltrate left and to a lesser extent peripheral aspect right upper lobe. Lung bases are grossly clear. Minimal infiltrative change medial aspect left and to a lesser extent right base. Prior gastroplasty. IMPRESSION: 1. Extensive bilateral pulmonary emboli with no involvement of the main pulmonary arteries bilaterall y. 2. Patchy parenchymal infiltrative changes bilaterally. ACT 112: Negative or not required by law. The above report was generated using voice recognition software. It may contain grammatical, syntax or spelling errors. Electronically signed by: Tello Warren M.D. 05/17/2019 6:00 PM
[2019-05-17] MEDS ORDERED: Heparin BOLUS **ED Use Only IV STA (18:03)
[2019-05-17] MEDS ORDERED: ALTEPLASE IV STA (18:42)
[2019-05-17] MEDS ORDERED: RECOMBINANT IV STA (18:42)
[2019-05-17] MEDS ORDERED: SODIUM CHLORIDE 0.9% 50 ML IV ONE (18:45)
[2019-05-17] MEDS ORDERED: PRIMARY PLUMSET 1 EA IV ONE (18:45)
[2019-05-17] MEDS ORDERED: ALTEPLASE BOLUS IV ONE (18:45)
[2019-05-17] MEDS ORDERED: NOREPINEPHRINE (Adult STAT Only) 4 MG in D5W 250 ML IV STA (19:06)
[2019-05-17 19:18] LABS: Base Excess VBG -4.1 mEq/L; Oxygen Saturation VBG 71.3 %; pH VBG 7.39 (7.36-7.41)
--- NOTE | 2019-05-17 19:19 | XRay Report ---
XR chest 1V portable CLINICAL HISTORY: cvc line placement COMPARISON STUDY: 09/23/2018 FINDINGS: Right internal jugular catheter placed in the superior vena cava. No evidence of pneumothorax. Interval right upper lobe infiltrate. Diaphragms are smooth. IMPRESSION: Central catheter in superior vena cava. 2. No evidence of pneumothorax. 3. Developing right upper lobe infiltrate. ACT 112: Negative or not required by law. The above report was generated using voice recognition software. It may contain grammatical, syntax or spelling errors. Electronically signed by: Tello Warren M.D. 05/17/2019 7:18 PM
[2019-05-17] MEDS ORDERED: ICU PROTOCOL FOR HYPERGLYCEMIA PRN (19:23)
--- NOTE | 2019-05-17 19:23 | Procedure Note ---
Procedure Note Date of Service May 17, 2019 Procedure date: Noted above Procedure: Central venous access Pre-procedure indication: No vascular access, need for vasoactive medication administration, need for secure vascular access Post-procedure Diagnosis: same as above Prior to Procedure: Informed Consent: The risks, benefits, indications, potential complications, and alternatives were explained to the patient and patient's and informed consent obtained verbally given the critical nature of the condition. Attending Staff: Marina Madrigal DO Resident/APC: Omi Haley Skin Prep: Chlorhexidine Anesthesia: 4 mL 1% lidocaine without epinephrine The identity of the patient was confirmed and a bedside time out was performed. Description of Procedure: After sterile prep and sterile drape utilizing standard sterile technique the superficial skin of the right internal jugular area was anesthetized. The target vessel was identified via dynamic ultrasound guidance and entered with an 18-gauge needle. Dark venous blood return was noted. A guidewire was inserted through the needle and into the vessel. The needle was withdrawn and a skin renate was made. A tissue dilator was advanced via Seldinger technique and removed. A triple lumen catheter was inserted via Seldinger technique and the guidewire removed. All ports prema and flushed easily. A Biopatch was placed, and the catheter was secured via silk suture. A sterile dressing was then applied. Complications: Difficult access requiring extreme Trendelenburg due to very low CVP. Due to critical nature unable to save the images. Immediately upon achieving secure access 2 L of IV fluid was administered. The positioning was confirmed via chest x-ray, I did not see a pneumothorax and we immediately started to administer TPA. Estimated blood loss: Trace Patient tolerated the procedure well. Coding CPT Codes Tubes, Drains, and Vasc Access - Tubes, Drains, and Vasc Access: [id number] Insertion Of Non-tunneled Catheter Age 5 Yrs> ([id number])
--- NOTE | 2019-05-17 19:41 | Critical Care Consultation ---
Date of Consultation May 17, 2019 Assessment & Plan (1) Acute cor pulmonale: Reason Critically Ill: Submassive pulmonary embolism with significant lactic acidosis PLAN: Resp: Acute hypoxic respiratory failure Submassive pulmonary embolism Rule out acute cor pulmonale -Patient consented to systemic thrombolysis -Verbally consented to central line and arterial line she was unable to sign given the acuity of her clinical scenario Probable pulmonary infarct seen on imaging CV: Hypotension -Secondary to submassive PE -Significant volume depletion Fluids/Renal: Significant lactic acidosis -In the setting of cardiogenic/obstructive shock ID: Holding anti-infectives at this time -Blood cultures pending GI/Nutrition: Regular diet Heme: Appears to have baseline anemia -Type and cross for 2 units Status post TPA administration in the emergency department -10 mg IV bolus followed by 40 mg continuous infusion as initial studies appear to have lower bleeding risk without significant mortality/morbidity benefit DVT prophylaxis: Heparin infusion 2 hours after TPA administration, PTT set to be drawn at that time Endocrine: ICU hyperglycemia protocol Vascular access: Emergent right internal jugular CVC, right radial arterial ar clarke catheter Code Status: Full code Present on Admission?: Yes (2) Acute hypoxemic respiratory failure: Present on Admission?: Yes (3) Intravenous infiltration: Present on Admission?: No (4) Gastric bypass status for obesity: Present on Admission?: Yes (5) Chronic obstructive pulmonary disease: Present on Admission?: Yes (6) Chronic kidney disease, stage 3: Present on Admission?: Yes History of Present Illness Allergies Allergy/AdvReac Type Severity Reaction Status Date / Time codeine Allergy Intermediate Diarrhea/Ra Verified 05/17/19 19:03 sh duloxetine Allergy Intermediate Crawling Verified 05/17/19 19:03 out of her skin sensation NSAIDS (Non-Steroidal Allergy Unknown None Verified 05/17/19 19:04 Anti-Inflamma Bactrim AdvReac Intermediate DELIRIUM Verified 12/28/17 19:46 clonazepam AdvReac Intermediate Syncope Verified 05/13/19 14:45 hydrocodone AdvReac Intermediate Over Verified 05/10/19 14:47 sedated hydromorphone AdvReac Intermediate Weakness Verified 05/17/19 19:05 and sweating sulfamethoxazole AdvReac Intermediate DELIRIUM Verified 05/10/19 14:47 trimethoprim AdvReac Intermediate DELIRIUM Verified 05/10/19 14:47 aspirin AdvReac Mild STOMACH Verified 05/17/19 19:04 IRRITATION cephalexin AdvReac Mild GI SYMPTOMS Verified 05/17/19 19:05 Home Medications Home Medications Medication Instructions Recorded Confirmed Type albuterol sulfate [Ventolin HFA] 2 puff INHALATION QID 01/04/18 05/17/19 History gabapentin 100 mg PO TID 01/04/18 05/17/19 History omeprazole 20 mg PO BID 01/04/18 05/17/19 History cyanocobalamin (vitamin B-12) 1,000 mcg IM MONTHLY 03/24/18 05/17/19 History potassium chloride 20 meq PO QAM 09/23/18 05/17/19 History cholecalciferol (vitamin D3) 2,000 unit PO BID 11/20/18 05/17/19 History [Vitamin D3] nystatin 1 applic TOPICAL TID PRN 11/20/18 05/17/19 History ondansetron HCl 4 mg PO Q8H PRN 11/20/18 05/17/19 History thiamine HCl (vitamin B1) 100 mg PO BID 11/20/18 05/17/19 History Ensure 1 ea PO DAILY 11/24/18 05/17/19 History buspirone 10 mg PO HS 04/26/19 05/17/19 History mirtazapine 45 mg PO HS 04/26/19 05/17/19 History venlafaxine 75 mg PO BID 04/26/19 05/17/19 History pediatric multivitamin no.76 1 tab PO BID tab 04/30/19 05/17/19 History calcium citrate 200 mg PO BID 05/17/19 05/17/19 History magnesium 100 mg PO DAILY 05/17/19 05/17/19 History vitamin A 10,000 unit PO DAILY 05/17/19 05/17/19 History Patient History Medical History Anxiety (Chronic) Cardiac murmur (Chronic) faint CHF (congestive heart failure) (Chronic) hx of Chronic back pain (Chronic) Chronic kidney disease, stage 3 (Chronic) 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 Chronic obstructive pulmonary disease (Chronic) inhaler prn Congestive heart failure, unspecified (Chronic 08/09/12) "echo 03/25/13-grade 1 diastolic dysfunction with mild concentric LVH" Degenerative disc disease (Chronic) Dyslipidemia (Chronic) Dysphagia (Chronic) Elevated liver enzymes (Chronic) per pt currently elevated Fatty liver (Chronic) Fibromyalgia (Chronic) GERD (gastroesophageal reflux disease) (Chronic) Hematoma of right lower extremity (Resolved) History of gastric ulcer (Chronic) Marijuana abuse (Resolved) Opiate abuse, continuous (Resolved) Organic sleep disorder (Chronic) Osteoarthritis (Chronic) Osteoarthritis (Chronic) Peripheral arterial disease (Chronic) Spinal stenosis (Chronic) Traumatic open wound of left lower leg (Acute) Traumatic open wound of right lower leg (Acute) Traumatic wound (Resolved) Venous stasis ulcer (Resolved) Surgical History Gastric bypass status for obesity (Chronic) H/O arthroscopic knee surgery (Chronic) "R knee; 1998" History of arthroscopy of right knee (Chronic) History of cholecystectomy (Chronic) History of colonoscopy (Chronic) History of esophagogastroduodenoscopy (EGD) (Chronic) History of repair of hiatal hernia (Chronic) History of tooth extraction (Chronic) History of wisdom tooth extraction (Chronic) Hx of appendectomy (Chronic) Hx of gastric bypass (Chronic) Hx of repair of right rotator cuff (Chronic) S/P bronchoscopy (Chronic) Status post repair of paraesophageal diaphragmatic hernia (Chronic) 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 Beliefs That Will Affect Care: None marital status: Current Living Situation: Family Current Living Situation Comment: lives with fiance current occupational status: unemployed Feels Safe at Home: Yes Safety Concerns: Feels Safe At This Time Smoking Status: Current every day smoker Tobacco Type: cigarettes ; Cigarettes Per Day: 1ppd ; Second Hand Exposure: Yes (father smokes) ; Tobacco Cessation Education Requested by Patient: No Hx Alcohol Use: No Hx Substance Use: No during the past year weight has: other Results & Data Vital Signs (Past 12 Hours) Vital Signs Temp Pulse Pulse Resp BP BP Pulse Ox 05/17/19 19:01 99 H 24 76/55 L 98 05/17/19 18:45 94 H 29 H 93/69 L 100 05/17/19 18:39 95 H 23 96/75 L 100 05/17/19 18:01 30 H 105/61 91 05/17/19 18:00 97 H 21 100 05/17/19 17:00 101 H 35 H 100 05/17/19 16:49 101 H 30 H 100 05/17/19 16:38 109 H 39 H 100/66 100 05/17/19 16:37 108 H 22 100/66 05/17/19 16:28 36.4 C L 126 H 36 H 79/56 L 89 L Coding Level of Care Code Critical Care 1st 30-74 mins Diagnoses Acute cor pulmonale I26.09 Acute hypoxemic respiratory failure J96.01 Intravenous infiltration T80.1XXA Encounter type: initial encounter Gastric bypass status for obesity Z98.84 Chronic obstructive pulmonary disease J44.9 COPD type: unspecified COPD Chronic kidney disease, stage 3 N18.3 Time Spent (min) 80 Comment I have personally spent 80 minutes of critical care time in the direct management of this patient. This is a life/limb threatening event. This includes time spent evaluating patient, direct bedside care, chart review, placing orders, interpretation of diagnostic studies, discussion with consultants, patient, and/or family members regarding treatment decisions, as well as other required patient management activities. This time is exclusive of all separately billable procedures, and teaching time and separate from and in addition to any other critical care service time. (1) Intravenous infiltration Encounter type: initial encounter Qualified Code(s): T80.1XXA - Vascular complications following infusion, transfusion and therapeutic injection, initial encounter (2) Chronic obstructive pulmonary disease COPD type: unspecified COPD Qualified Code(s): J44.9 - Chronic obstructive pulmonary disease, unspecified
[2019-05-17] MEDS ORDERED: SODIUM CHLORIDE 0.9% 250 ML IV PRN (19:49)
--- NOTE | 2019-05-17 19:56 | CT Scan Report ---
CT head/brain wo con CT DOSE: 638.56 mGycm HISTORY: Mental status change headache TECHNIQUE: Multiaxial CT images of the head were performed without the use of intravenous contrast. A dose lowering technique was utilized adhering to the principles of ALARA. Comparison: 03/24/2018 Findings: Mild chronic frontal atrophy. No evidence for acute intracranial hemorrhage. No midline phillip ft. Major sinuses are considered clear. IMPRESSION: 1. Chronic frontal atrophy. 2. No acute intracranial abnormality. Impression: No acute intracranial abnormality. ACT 112: Negative or not required by law. The above report was generated using voice recognition software. It may contain grammatical, syntax or spelling errors. Electronically signed by: Tello Warren M.D. 05/17/2019 7:55 PM
[2019-05-17] MEDS ORDERED: Heparin IV Standard *NO* Bolus IV SCH (20:41)
[2019-05-17] MEDS: FAMOTIDINE 20 MG in SYRINGE 3 ML IV SCH (20:51)
[2019-05-17] MEDS: NORMOSOL-R 1,000 ML IV SCH (20:51)
[2019-05-17 21:15] LABS: Reticulocyte % 2.6 % (0.5-2.0); Reticulocytes # 0.08 10^6/uL (0.02-0.10)
[2019-05-17 21:26] LABS: Partial Thromboplastin Ratio 1.3; Partial Thromboplastin Time 34.1 Seconds (21.0-31.0)
[2019-05-17 21:31] LABS: Amphetamines+Metham, Urine Neg (Neg); Barbiturates, Urine Neg (Neg); Benzodiazepine, Urine Neg (Neg); Cocaine, Urine Neg (Neg); MDMA (Ecstacy), Urine Neg (Neg); Methadone, Urine Neg (Neg); Opiate, Urine Neg (Neg); Phencyclidine, Urine Neg (Neg)
[2019-05-17 21:36] LABS: Ferritin 270.5 ng/ml (8-388); T4 Free Thyroxine 0.99 ng/dl (0.8-1.6)
[2019-05-17 21:48] LABS: Vitamin B12 1737 pg/ml (211-911)
[2019-05-17 21:49] LABS: Folate (Folic Acid) > 24.00 ng/ml (>5.38)
[2019-05-17 21:58] LABS: Appearance Urine Clear (Clear); Bacteria Urine Automated Negative (Negative); Bilirubin Urine Negative (Negative); Blood Urine Negative (Negative); Color Urine Dark Yellow; Epithelial Cell Urine Auto >30 /lpf (0-5); Glucose Urine UA Negative (Negative); Ketones Urine Negative (Negative); Leukocyte Esterase Urine Trace (Negative); Nitrite Urine Positive (Negative); Protein Urine Negative (Negative); Specific Gravity Urine > 1.045 (1.000-1.030); Urobilinogen Urine Negative (Negative); pH Urine 6.5 (4.5-7.5)
--- NOTE | 2019-05-17 22:04 | Emergency Department Note ---
Entered by Xena Obrien acting as a scribe for History of Present Illness General Chief complaint: Chest Pain Stated complaint: PNEUMONIA, WEAKNESS, FEVER, SOB, CHEST PAIN Source: patient and family () History of Present Illness Onset (ago): day(s) 2 Location: chest Pain Consistency: + constant Maximum Pain Intensity: 8 Relieved By: + none Associated symptoms: + denies other symptoms (production of mucous with cough, burning urination, and pain with urination), + cough, + shortness of breath and + other (runny nose, sore throat, dizziness); no fever/chills The patient is a 59 year old F who presents to the Emergency Room with complaints of constant chest pain that started 2 days ago. The majority of the HPI was provided by the patients . He states that the patients chest pain started with symptoms of a runny nose, sore throat, dizziness, and coughing. The patient confirms these symptoms. She adds that she is currently experiencing chest pain and a shortness of breath. She states that her chest pain is located in the center of her chest. She denies that she is currently experiencing fevers, production of mucous with her cough, burning urination, and pain with urination. She adds that she has been eating and drinking normally. The patients notes that the patient has wounds on her legs that is currently being treated by the wound clinic. The patient states that she has a history of COPD. Home Medications Home Medications Medication Instructions Recorded Confirmed Type albuterol sulfate [Ventolin HFA] 2 puff INHALATION QID 01/04/18 05/17/19 History gabapentin 100 mg PO TID 01/04/18 05/17/19 History omeprazole 20 mg PO BID 01/04/18 05/17/19 History cyanocobalamin (vitamin B-12) 1,000 mcg IM MONTHLY 03/24/18 05/17/19 History potassium chloride 20 meq PO QAM 09/23/18 05/17/19 History cholecalciferol (vitamin D3) 2,000 unit PO BID 11/20/18 05/17/19 History [Vitamin D3] nystatin 1 applic TOPICAL TID PRN 11/20/18 05/17/19 History ondansetron HCl 4 mg PO Q8H PRN 11/20/18 05/17/19 History thiamine HCl (vitamin B1) 100 mg PO BID 11/20/18 05/17/19 History Ensure 1 ea PO DAILY 11/24/18 05/17/19 History buspirone 10 mg PO HS 04/26/19 05/17/19 History mirtazapine 45 mg PO HS 04/26/19 05/17/19 History venlafaxine 75 mg PO BID 04/26/19 05/17/19 History pediatric multivitamin no.76 1 tab PO BID tab 04/30/19 05/17/19 History calcium citrate 200 mg PO BID 05/17/19 05/17/19 History magnesium 100 mg PO DAILY 05/17/19 05/17/19 History vitamin A 10,000 unit PO DAILY 05/17/19 05/17/19 History Allergies Allergy/AdvReac Type Severity Reaction Status Date / Time codeine Allergy Intermediate Diarrhea/Ra Verified 05/17/19 19:03 sh duloxetine Allergy Intermediate Crawling Verified 05/17/19 19:03 out of her skin sensation NSAIDS (Non-Steroidal Allergy Unknown None Verified 05/17/19 19:04 Anti-Inflamma Bactrim AdvReac Intermediate DELIRIUM Verified 12/28/17 19:46 clonazepam AdvReac Intermediate Syncope Verified 05/13/19 14:45 hydrocodone AdvReac Intermediate Over Verified 05/10/19 14:47 sedated hydromorphone AdvReac Intermediate Weakness Verified 05/17/19 19:05 and sweating sulfamethoxazole AdvReac Intermediate DELIRIUM Verified 05/10/19 14:47 trimethoprim AdvReac Intermediate DELIRIUM Verified 05/10/19 14:47 aspirin AdvReac Mild STOMACH Verified 05/17/19 19:04 IRRITATION cephalexin AdvReac Mild GI SYMPTOMS Verified 05/17/19 19:05 Past Med/Surg History Medical History Anxiety (Chronic) Cardiac murmur (Chronic) faint CHF (congestive heart failure) (Chronic) hx of Chronic back pain (Chronic) Chronic kidney disease, stage 3 (Chronic) no loom changer at 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 moment Chronic obstructive pulmonary disease (Chronic) inhaler prn Congestive heart failure, unspecified (Chronic 08/09/12) "echo 03/25/13-grade 1 diastolic dysfunction with mild concentric LVH" Degenerative disc disease (Chronic) Dyslipidemia (Chronic) Dysphagia (Chronic) Elevated liver enzymes (Chronic) per pt currently elevated Fatty liver (Chronic) Fibromyalgia (Chronic) GERD (gastroesophageal reflux disease) (Chronic) Hematoma of right lower extremity (Resolved) History of gastric ulcer (Chronic) Marijuana abuse (Resolved) Opiate abuse, continuous (Resolved) Organic sleep disorder (Chronic) Osteoarthritis (Chronic) Osteoarthritis (Chronic) Peripheral arterial disease (Chronic) Spinal stenosis (Chronic) Traumatic open wound of left lower leg (Acute) Traumatic open wound of right lower leg (Acute) Traumatic wound (Resolved) Venous stasis ulcer (Resolved) Surgical History Gastric bypass status for obesity (Chronic) H/O arthroscopic knee surgery (Chronic) "R knee; 1998" History of arthroscopy of right knee (Chronic) History of cholecystectomy (Chronic) History of colonoscopy (Chronic) History of esophagogastroduodenoscopy (EGD) (Chronic) History of repair of hiatal hernia (Chronic) History of tooth extraction (Chronic) History of wisdom tooth extraction (Chronic) Hx of appendectomy (Chronic) Hx of gastric bypass (Chronic) Hx of repair of right rotator cuff (Chronic) S/P bronchoscopy (Chronic) Status post repair of paraesophageal diaphragmatic hernia (Chronic) [place]. [place] [facility] [place]" Family History Other Family history not known due to adoption Social History Preferred Language: Liberian Communication Ability: Effective Visual Impairment: No Limitations Hearing Ability: Normal News Clipping Cutter Required: No Beliefs That Will Affect Care: None marital status: Current Living Situation: Family Current Living Situation Comment: lives with fiance current occupational status: unemployed Feels Safe at Home: Yes Safety Concerns: Feels Safe At This Time Smoking Status: Current every day smoker Tobacco Type: cigarettes ; Cigarettes Per Day: 1ppd ; Second Hand Exposure: Yes (father smokes) ; Tobacco Cessation Education Requested by Patient: No Hx Alcohol Use: No Hx Substance Use: No during the past year weight has: other Review of Systems See HPI for pertinent positives & negatives. and A total of 10 systems reviewed and were otherwise negative Physical Exam Vital Signs Vital Signs - 24 hr 05/17/19 16:28 05/17/19 16:37 05/17/19 16:38 Temperature 36.4 C L Temperature Source Oral Pulse Rate 126 H 108 H Pulse Rate [Left] 109 H Pulse Rate from SpO2 Sensor 101 H Respiratory Rate 36 H 22 39 H Respiratory Effort / Characteristics Accessory Muscle Use Short of Breath Accessory Muscle Use Respiratory Depth Shallow Blood Pressure 79/56 L 100/66 Blood Pressure [Left Arm] 100/66 Blood Pressure Mean 63 73 Blood Pressure Mean [Left Arm] 77 Blood Pressure Position Sitting Blood Pressure Position [Left Arm] Lying Pulse Oximetry 89 L 100 Oxygen Delivery Method Room Air Non-rebreather Oxygen Flow Rate 10 Sepsis Recent Fever Within 48 Hours Yes Sepsis New/Unexplained Change in Mental Status No Sepsis Action Taken by Nursing Physician Notified 05/17/19 16:49 05/17/19 17:00 05/17/19 18:00 Temperature Temperature Source Pulse Rate 101 H 101 H 97 H Pulse Rate [Left] Pulse Rate from SpO2 Sensor 102 H 100 H 97 H Respiratory Rate 30 H 35 H 21 Respiratory Effort / Characteristics Respiratory Depth Blood Pressure Blood Pressure [Left Arm] Blood Pressure Mean Blood Pressure Mean [Left Arm] Blood Pressure Position Blood Pressure Position [Left Arm] Pulse Oximetry 100 100 100 Oxygen Delivery Method Non-rebreather Non-rebreather Non-rebreather Oxygen Flow Rate 15 15 15 Sepsis Recent Fever Within 48 Hours Sepsis New/Unexplained Change in Mental Status Sepsis Action Taken by Nursing 05/17/19 18:01 05/17/19 18:39 05/17/19 18:45 Temperature Temperature Source Pulse Rate 95 H 94 H Pulse Rate [Left] Pulse Rate from SpO2 Sensor 96 H 95 H 93 H Respiratory Rate 30 H 23 29 H Respiratory Effort / Characteristics Respiratory Depth Blood Pressure 105/61 96/75 L 93/69 L Blood Pressure [Left Arm] Blood Pressure Mean 94 81 83 Blood Pressure Mean [Left Arm] Blood Pressure Position Blood Pressure Position [Left Arm] Pulse Oximetry 91 100 100 Oxygen Delivery Method Non-rebreather Oxygen Flow Rate 15 Sepsis Recent Fever Within 48 Hours Sepsis New/Unexplained Change in Mental Status Sepsis Action Taken by Nursing 05/17/19 19:00 05/17/19 19:01 Temperature Temperature Source Pulse Rate 99 H Pulse Rate [Left] Pulse Rate from SpO2 Sensor 95 H Respiratory Rate 24 Respiratory Effort / Characteristics Respiratory Depth Blood Pressure 76/55 L Blood Pressure [Left Arm] Blood Pressure Mean 59 Blood Pressure Mean [Left Arm] Blood Pressure Position Blood Pressure Position [Left Arm] Pulse Oximetry 100 98 Oxygen Delivery Method Non-rebreather Oxygen Flow Rate 15 Sepsis Recent Fever Within 48 Hours Sepsis New/Unexplained Change in Mental Status Sepsis Action Taken by Nursing GENERAL: ill appearing, laying on bed, cachectic/malnourished, dyspneic on conversation, on non-rebreather EYE EXAM: normal conjunctiva OROPHARYNX: no exudate, no erythema, lips, buccal mucosa, and tongue normal and mucous membranes are moist NECK: supple, no nuchal rigidity, no adenopathy, non-tender LUNGS: Clear to auscultation. Normal chest wall mechanics HEART: Tachycardic, no murmurs, S1 normal and S2 normal ABDOMEN: abdomen soft, non-tender, normo-active bowel sounds, no masses, no rebound or guarding. BACK: Back is symmetrical on inspection and there is no deformity, no midline tenderness, no CVA tenderness. SKIN: no rashes and no bruising UPPER EXTREMITIES: upper extremities are grossly normal. LOWER EXTREMITIES: No pitting edema. Calves equal bilaterally. NEURO EXAM: Normal sensorium, cranial nerves II-XII grossly intact, normal speech, no gross weakness of arms, no gross weakness of legs. Course Course ED COURSE: Vital signs were reviewed and showed hypotension and tachycardia. The patients medical record was reviewed The above diagnostic studies were performed and reviewed. ED treatments and interventions as stated above. 1640: The patient was evaluated in room C2B. A complete history and physical examination was performed. 1734: I re-updated the patient and asked the nurse to take the patient over for CT scan. 1739: The patient is currently going to CT. 1802: The patient is 95% on room air. 180: I reviewed the patient's case with Dr. Madrigal, j2ee java developer [facility]. He will come in to see the patient. 1817: The patient's IV blew. 1823: Dr. Madrigal is placing a central line in the patient. 1850: Upon reevaluation, the patient is not doing any better. I discussed my findings with the patient and she understands and agrees with the treatment plan. 185: The patient is now going to the ICU. 192: I reviewed the patient's case with Dr. Janak Mosquera, [facility]. He will evaluate the patient for further management. Based on the patients age, coexisting illnesses, exam and lab findings the decision to treat as an inpatient was made. The patient remained stable while under my care. The patient will be evaluated for further management. Administered Medications Parenteral Electrolytes (Normosol-R) 1,000 mls @ 125 mls/hr IV .Q8H VERO Stop: 06/16/19 20:29 Last Admin: 05/17/19 20:51 Dose: 125 mls/hr Documented by: [id number] Famotidine 20 mg/ Syringe 5 mls @ 2.5 mls/min IV Q12H VERO Stop: 06/16/19 20:59 Last Admin: 05/17/19 20:51 Dose: 2.5 mls/min Documented by: [id number] Ioversol (Optiray 320 125ml) 115 ml IV ONCE PRN PRN Reason: Interaction Checking Stop: 05/21/19 17:54 Last Admin: 05/17/19 17:55 Dose: 115 ml Documented by: [id number] Discontinued Medications Aspirin (Aspirin) 324 mg PO NOW STA Stop: 05/17/19 17:31 Last Admin: 05/17/19 21:25 Dose: Not Given Documented by: [id number] Heparin Sodium (Porcine) (Heparin Iv Bolus) 4,000 units IV NOW STA Stop: 05/17/19 18:04 Last Admin: 05/17/19 20:17 Dose: Not Given Documented by: [id number] Heparin Sodium/Dextrose () 1 ea IV NOW STA; Protocol Stop: 05/17/19 17:59 Last Admin: 05/17/19 19:42 Dose: Not Given Documented by: [id number] Sodium Chloride (Nss 1000ml) 2,000 mls @ 999 mls/hr IV .Q2H1M ONE Stop: 05/17/19 18:45 Last Infusion: 05/17/19 20:49 Dose: 0 mls/hr Documented by: [id number] Admin: 05/17/19 17:04 Dose: 999 mls/hr Documented by: [id number] Levofloxacin/Dextrose (Levaquin/D5w) 750 mg in 150 mls @ 100 mls/hr IV Q24H VERO Stop: 05/19/19 16:44 Last Admin: 05/17/19 19:44 Dose: Not Given Documented by: [id number] Piperacillin Sod/Tazobactam Sod (Zosyn) 3.375 gm in 115 mls @ 230 mls/hr IV NOW STA Stop: 05/17/19 17:58 Last Admin: 05/17/19 19:46 Dose: Not Given Documented by: [id number] Heparin Sodium/Dextrose (Heparin Sodium/Dextrose) 25,000 units in 500 mls @ 19 mls/hr IV .Q24H VERO; Protocol Stop: 06/16/19 17:59 Last Admin: 05/17/19 19:43 Dose: Not Given Documented by: [id number] Alteplase, Recombinant 40 mg/ (EMPTY BAG) 40 mls @ 20 mls/hr IV NOW STA; Protocol Stop: 05/17/19 20:41 Last Infusion: 05/17/19 21:08 Dose: 0 mls/hr Documented by: [id number] Cosigned by: [id number] Admin: 05/17/19 19:08 Dose: 20 mls/hr Documented by: [id number] Cosigned by: [id number] N/A (Primary [place], [place] [employer]ing ([id number])) 20 mls @ 20 mls/hr IV ONE ONE Stop: 05/17/19 19:44 Last Admin: 05/17/19 21:26 Dose: Not Given Documented by: [id number] Sodium Chloride (Nss) 50 mls @ 20 mls/hr IV TODAY@ ONE; Protocol Stop: 05/17/19 21:14 Last Admin: 05/17/19 21:25 Dose: Not Given Documented by: [id number] Alteplase, Recombinant 10 mg/ (Syringe) 10 mls @ 0 mls/min IV NOW ONE Stop: 05/17/19 18:46 Last Admin: 05/17/19 19:00 Dose: 10 mls/min Documented by: [id number] Cosigned by: [id number] Norepinephrine Bitartrate 4 mg (/ Dextrose) 254 mls @ 0 mls/hr IV .Q0M STA; Protocol Stop: 05/17/19 19:07 Last Titration: 05/17/19 21:58 Dose: 0 mcg/kg/min, 0 mls/hr Documented by: [id number] Admin: 05/17/19 19:19 Dose: 0.02 mcg/kg/min, 4.1 mls/hr Documented by: [id number] Cosigned by: [id number] Critical Care Time Critical Care Time: Yes Total Critical Care Time: 75 I have personally spent 75 minutes of critical care time in the direct management of this patient. This includes bedside care, interpretation of diagnostic studies, and testing, discussion with consultants, patient, and family members, and other required patient management activities. This 75 minutes is in excess of all separately billable procedures. Medical Decision Making Differential Diagnosis Differential diagnosis includes etiologies such as sepsis, UTI, pneumonia, metabolic, electrolyte abnormalities, cardiac sources, intracerebral event, toxicologic, neurologic, as well as others were entertained. Medical Records Attestation: I reviewed the patient's medical records. Home Medications Current Medication List: was personally reviewed by ar Laboratory Data Attestation: I reviewed the patient's lab results. Result diagrams: 05/17/19 16:52 05/17/19 16:52 Lab Results 05/17/19 05/17/19 05/17/19 Range/Units 16:52 16:52 16:52 WBC 8.37 (4.8-10.8) K/uL RBC 3.05 L (4.2-5.4) M/uL Hgb 10.8 L (12.0-16.0) g/dL POC Hgb (12.0-16.0) g/dl Hct 32.3 L (37-47) % POC Hct (37-47) % MCV 105.9 H (80-100) fL MCH 35.4 H (25-34) pg MCHC 33.4 (32-36) g/dL RDW Std Deviation 63.4 H (36.4-46.3) fL RDW Coeff of Liz 16.4 H (11.5-14.5) % Plt Count 196 (130-400) K/uL MPV 10.5 H (7.4-10.4) fL Immature Gran % (Auto) 0.5 % Neut % (Auto) 78.1 % Lymph % (Auto) 13.7 % [place] % (Auto) 7.4 % Eos % (Auto) 0.2 % Baso % (Auto) 0.1 % Immature Gran # (Auto) 0.04 H (0.00-0.02) K/uL Neut # (Auto) 6.53 H (1.4-6.5) K/uL Lymph # (Auto) 1.15 L (1.2-3.4) K/uL [place] # (Auto) 0.62 H (0.11-0.59) K/uL Eos # (Auto) 0.02 (0-0.5) K/uL Baso # (Auto) 0.01 (0-0.2) K/uL PT 12.6 H (9.0-12.0) Seconds INR 1.2 H (0.9-1.1) APTT 29.9 (21.0-31.0) Seconds PTT Ratio 1.1 VBG pH (7.36-7.41) VBG pCO2 (38-50) mmHg VBG pO2 mmHg VBG HCO3 mmol/L VBG O2 Saturation % VBG Base Excess mEq/L Barometric Pressure mm/Hg POC Sodium (135-144) mmol/L Sodium 137 (136-145) mmol/L POC Potassium (3.3-5.0) mmol/L Potassium 3.1 L (3.5-5.1) mmol/L POC Chloride (101-112) mmol/L Chloride 106 (98-107) mmol/L Carbon Dioxide 20 L (21-32) mmol/L POC Total CO2 (24-31) mEq/l Anion Gap 11.0 (3-11) POC Anion Gap (16-25) mmol/L POC BUN (7-18) mg/dl BUN 13 (7-18) mg/dl Creatinine 0.99 (0.6-1.2) mg/dl POC Creatinine (0.6-1.3) mg/dl Est Cr Clr Drug Dosing 50.6 ml/min Est GFR ( Amer) 72.3 Est GFR (Non-Af Amer) 62.4 BUN/Creatinine Ratio 12.9 (10-20) Glucose 106 H (70-99) mg/dl POC Glucose (other) (70-99) mg/dl Lactate (0.4-2.0) mmol/L Calcium 8.3 L (8.5-10.1) mg/dl POC Ioniz Calcium Sri (1.12-1.32) mmol/l Magnesium 2.0 (1.8-2.4) mg/dl Total Bilirubin 0.5 (0.2-1) mg/dl AST 17 (15-37) U/L ALT 19 (12-78) U/L Alkaline Phosphatase 189 H (45-117) U/L Troponin I 0.020 (0-0.045) ng/ml NT-Pro-B Natriuret Pep 80526 H (0-900) pg/ml Total Protein 5.7 L (6.4-8.2) gm/dl Albumin 1.7 L (3.4-5.0) gm/dl Globulin 4.0 (2.5-4.0) gm/dl Albumin/Globulin Ratio 0.4 L (0.9-2) Procalcitonin (0-0.5) ng/ml Influenza Type A (PCR) (Neg) Influenza Type B (PCR) (Neg) Blood Type Antibody Screen Crossmatch 05/17/19 05/17/19 05/17/19 Range/Units 16:52 16:52 16:55 WBC (4.8-10.8) K/uL RBC (4.2-5.4) M/uL Hgb (12.0-16.0) g/dL POC Hgb 11.2 L (12.0-16.0) g/dl Hct (37-47) % POC Hct 33 L (37-47) % MCV (80-100) fL MCH (25-34) pg MCHC (32-36) g/dL RDW Std Deviation (36.4-46.3) fL RDW Coeff of Liz (11.5-14.5) % Plt Count (130-400) K/uL MPV (7.4-10.4) fL Immature Gran % (Auto) % Neut % (Auto) % Lymph % (Auto) % [place] % (Auto) % Eos % (Auto) % Baso % (Auto) % Immature Gran # (Auto) (0.00-0.02) K/uL Neut # (Auto) (1.4-6.5) K/uL Lymph # (Auto) (1.2-3.4) K/uL [place] # (Auto) (0.11-0.59) K/uL Eos # (Auto) (0-0.5) K/uL Baso # (Auto) (0-0.2) K/uL PT (9.0-12.0) Seconds INR (0.9-1.1) APTT (21.0-31.0) Seconds PTT Ratio VBG pH (7.36-7.41) VBG pCO2 (38-50) mmHg VBG pO2 mmHg VBG HCO3 mmol/L VBG O2 Saturation % VBG Base Excess mEq/L Barometric Pressure mm/Hg POC Sodium 135 (135-144) mmol/L Sodium (136-145) mmol/L POC Potassium 3.1 L (3.3-5.0) mmol/L Potassium (3.5-5.1) mmol/L POC Chloride 102 (101-112) mmol/L Chloride (98-107) mmol/L Carbon Dioxide (21-32) mmol/L POC Total CO2 19 L (24-31) mEq/l Anion Gap (3-11) POC Anion Gap 18.0 (16-25) mmol/L POC BUN 12 (7-18) mg/dl BUN (7-18) mg/dl Creatinine (0.6-1.2) mg/dl POC Creatinine 1.1 (0.6-1.3) mg/dl Est Cr Clr Drug Dosing ml/min Est GFR ( Amer) Est GFR (Non-Af Amer) BUN/Creatinine Ratio (10-20) Glucose (70-99) mg/dl POC Glucose (other) 106 H (70-99) mg/dl Lactate 7.0 H* (0.4-2.0) mmol/L Calcium (8.5-10.1) mg/dl POC Ioniz Calcium Sri 1.10 L (1.12-1.32) mmol/l Magnesium (1.8-2.4) mg/dl Total Bilirubin (0.2-1) mg/dl AST (15-37) U/L ALT (12-78) U/L Alkaline Phosphatase (45-117) U/L Troponin I (0-0.045) ng/ml NT-Pro-B Natriuret Pep (0-900) pg/ml Total Protein (6.4-8.2) gm/dl Albumin (3.4-5.0) gm/dl Globulin (2.5-4.0) gm/dl Albumin/Globulin Ratio (0.9-2) Procalcitonin 0.12 (0-0.5) ng/ml Influenza Type A (PCR) (Neg) Influenza Type B (PCR) (Neg) Blood Type Antibody Screen Crossmatch 01/13/20 01/13/20 01/13/20 Range/Units 17:03 17:17 19:03 WBC (4.8-10.8) K/uL RBC (4.2-5.4) M/uL Hgb (12.0-16.0) g/dL POC Hgb (12.0-16.0) g/dl Hct (37-47) % POC Hct (37-47) % MCV (80-100) fL MCH (25-34) pg MCHC (32-36) g/dL RDW Std Deviation (36.4-46.3) fL RDW Coeff of Liz (11.5-14.5) % Plt Count (130-400) K/uL MPV (7.4-10.4) fL Immature Gran % (Auto) % Neut % (Auto) % Lymph % (Auto) % [place] % (Auto) % Eos % (Auto) % Baso % (Auto) % Immature Gran # (Auto) (0.00-0.02) K/uL Neut # (Auto) (1.4-6.5) K/uL Lymph # (Auto) (1.2-3.4) K/uL [place] # (Auto) (0.11-0.59) K/uL Eos # (Auto) (0-0.5) K/uL Baso # (Auto) (0-0.2) K/uL PT (9.0-12.0) Seconds INR (0.9-1.1) APTT (21.0-31.0) Seconds PTT Ratio VBG pH 7.32 L (7.36-7.41) VBG pCO2 38 (38-50) mmHg VBG pO2 31 mmHg VBG HCO3 19 mmol/L VBG O2 Saturation < 60.0 % VBG Base Excess -6.8 mEq/L Barometric Pressure 739.2 mm/Hg POC Sodium (135-144) mmol/L Sodium (136-145) mmol/L POC Potassium (3.3-5.0) mmol/L Potassium (3.5-5.1) mmol/L POC Chloride (101-112) mmol/L Chloride (98-107) mmol/L Carbon Dioxide (21-32) mmol/L POC Total CO2 (24-31) mEq/l Anion Gap (3-11) POC Anion Gap (16-25) mmol/L POC BUN (7-18) mg/dl BUN (7-18) mg/dl Creatinine (0.6-1.2) mg/dl POC Creatinine (0.6-1.3) mg/dl Est Cr Clr Drug Dosing ml/min Est GFR ( Amer) Est GFR (Non-Af Amer) BUN/Creatinine Ratio (10-20) Glucose (70-99) mg/dl POC Glucose (other) (70-99) mg/dl Lactate 3.5 H* (0.4-2.0) mmol/L Calcium (8.5-10.1) mg/dl POC Ioniz Calcium Sri (1.12-1.32) mmol/l Magnesium (1.8-2.4) mg/dl Total Bilirubin (0.2-1) mg/dl AST (15-37) U/L ALT (12-78) U/L Alkaline Phosphatase (45-117) U/L Troponin I (0-0.045) ng/ml NT-Pro-B Natriuret Pep (0-900) pg/ml Total Protein (6.4-8.2) gm/dl Albumin (3.4-5.0) gm/dl Globulin (2.5-4.0) gm/dl Albumin/Globulin Ratio (0.9-2) Procalcitonin (0-0.5) ng/ml Influenza Type A (PCR) Neg for Influ A (Neg) Influenza Type B (PCR) Neg for Influ B (Neg) Blood Type Antibody Screen Crossmatch 05/17/19 05/17/19 Range/Units 19:04 19:04 WBC (4.8-10.8) K/uL RBC (4.2-5.4) M/uL Hgb (12.0-16.0) g/dL POC Hgb (12.0-16.0) g/dl Hct (37-47) % POC Hct (37-47) % MCV (80-100) fL MCH (25-34) pg MCHC (32-36) g/dL RDW Std Deviation (36.4-46.3) fL RDW Coeff of Liz (11.5-14.5) % Plt Count (130-400) K/uL MPV (7.4-10.4) fL Immature Gran % (Auto) % Neut % (Auto) % Lymph % (Auto) % [place] % (Auto) % Eos % (Auto) % Baso % (Auto) % Immature Gran # (Auto) (0.00-0.02) K/uL Neut # (Auto) (1.4-6.5) K/uL Lymph # (Auto) (1.2-3.4) K/uL [place] # (Auto) (0.11-0.59) K/uL Eos # (Auto) (0-0.5) K/uL Baso # (Auto) (0-0.2) K/uL PT (9.0-12.0) Seconds INR (0.9-1.1) APTT (21.0-31.0) Seconds PTT Ratio VBG pH 7.39 (7.36-7.41) VBG pCO2 35 L (38-50) mmHg VBG pO2 41 mmHg VBG HCO3 20 mmol/L VBG O2 Saturation 71.3 % VBG Base Excess -4.1 mEq/L Barometric Pressure 740.0 mm/Hg POC Sodium (135-144) mmol/L Sodium (136-145) mmol/L POC Potassium (3.3-5.0) mmol/L Potassium (3.5-5.1) mmol/L POC Chloride (101-112) mmol/L Chloride (98-107) mmol/L Carbon Dioxide (21-32) mmol/L POC Total CO2 (24-31) mEq/l Anion Gap (3-11) POC Anion Gap (16-25) mmol/L POC BUN (7-18) mg/dl BUN (7-18) mg/dl Creatinine (0.6-1.2) mg/dl POC Creatinine (0.6-1.3) mg/dl Est Cr Clr Drug Dosing ml/min Est GFR ( Amer) Est GFR (Non-Af Amer) BUN/Creatinine Ratio (10-20) Glucose (70-99) mg/dl POC Glucose (other) (70-99) mg/dl Lactate (0.4-2.0) mmol/L Calcium (8.5-10.1) mg/dl POC Ioniz Calcium Sri (1.12-1.32) mmol/l Magnesium (1.8-2.4) mg/dl Total Bilirubin (0.2-1) mg/dl AST (15-37) U/L ALT (12-78) U/L Alkaline Phosphatase (45-117) U/L Troponin I (0-0.045) ng/ml NT-Pro-B Natriuret Pep (0-900) pg/ml Total Protein (6.4-8.2) gm/dl Albumin (3.4-5.0) gm/dl Globulin (2.5-4.0) gm/dl Albumin/Globulin Ratio (0.9-2) Procalcitonin (0-0.5) ng/ml Influenza Type A (PCR) (Neg) Influenza Type B (PCR) (Neg) Blood Type A Positive Antibody Screen NEGATIVE Crossmatch See Detail Imaging Data Radiologist's Impression: Radiology results as stated below per my review and the radiologist's interpretation: CT angio chest PE protocol CT DOSE: 266.85 mGycm HISTORY: Dyspnea sob hypotension cp tachy TECHNIQUE: Multiaxial CT images of the chest were performed following the intravenous administration of contrast to evaluate the pulmonary arteries. Maximal intensity projection images were also obtained. A dose lowering technique was utilized adhering to the principles of ALARA. COMPARISON STUDY: None. FINDINGS: Extensive bilateral pulmonary emboli. This involves the main pulmonary arteries bilaterally with extension of the left main pulmonary arterial thrombus to the main pulmonary artery. Poorly defined parenchymal infiltrate left and to a lesser extent peripheral aspect right upper lobe. Lung bases are grossly clear. Minimal infiltrative change medial aspect left and to a lesser extent right base. Prior gastroplasty. IMPRESSION: 1. Extensive bilateral pulmonary emboli with no involvement of the main pulmonary arteries bilaterally. 2. Patchy parenchymal infiltrative changes bilaterally. ACT 112: Negative or not required by law. The above report was generated using voice recognition software. It may contain grammatical, syntax or spelling errors. Electronically signed by: Tello Warren M.D. 05/17/2019 6:00 PM XR chest 1V portable CLINICAL HISTORY: cvc line placement COMPARISON STUDY: 09/23/2018 FINDINGS: Right internal jugular catheter placed in the superior vena cava. No evidence of pneumothorax. Interval right upper lobe infiltrate. Diaphragms are smooth. IMPRESSION: Central catheter in superior vena cava. 2. No evidence of pneumothorax. 3. Developing right upper lobe infiltrate. ACT 112: Negative or not required by law. The above report was generated using voice recognition software. It may contain grammatical, syntax or spelling errors. Electronically signed by: Tello Warren M.D. 05/17/2019 7:18 PM ECG Data Attestation: I personally reviewed and interpreted this ECG as follows: Indication: + chest pain Rate (beats per minute): 116 Rhythm: + sinus tachycardia ECG Sullivan: + Normal ECG ST segments: + ST depression, + T-wave inversions (Septal and anterior) and + Nonspecific ST abnormalities (inferior) Comparison ECG Date: from (09/23/18) Change: the following changes noted (TWI and ST depressions and anterior flattening are new) Blood Pressure Blood Pressure Findings: Low blood pressure Blood Pressure Disposition: further management by hospitalist RICHAR Narrative Patient is a 53-year-old female who presents the ER for shortness of breath. Upon arrival she is found to be hypotensive tachycardic and placed on nonrebreather secondary to her tachypnea. IVs were established blood work was obtained. Labs showed no significant leukocytosis and a mild anemia 10.8. INR was unremarkable. VBG with a CO2 slightly low at 35. BMP with mild hypokalemia. LFTs bilirubin was unremarkable. Lactate was elevated at 7. Troponin was negative but was detectable. Upon arrival ordered a POC BMP for emergent CT PE as I was concerned for bilateral PEs. There was a delay in obtaining IV/blood work. Patient was eventually taken over for CT per my read had large bilateral PEs. This is confirmed by radiologist. Consulted the j2ee java developer. Patient was ordered IV fluids IV heparin bolus and drip. Pickling Operator present at bedside admitted the patient and placed central line in c ombination with arterial line and patient did drop her pressures and she was consequently given IV TPA. Impression & Plan Pulmonary embolism, Hypoxia, Tachycardia, Hypotension, Acidosis, lactic Discharge Plan Visit Data *Final* Discharge Date/Time: 05/17/19 20:00 Chief Complaint: Chest Pain Stated Complaint: PNEUMONIA, WEAKNESS, FEVER, SOB, CHEST PAIN ED Provider: Vamsi King Discharge Problem: Pulmonary embolism, Hypoxia, Tachycardia, Hypotension, Acidosis, lactic Patient Disposition: Admitted As Inpatient Discharge Instructions Interventions: ED Discharge Assessment Last Done: 05/17/19 20:00 Discharge Problem: Pulmonary embolism Qualifiers: Pulmonary embolism type: unspecified Chronicity: unspecified Acute cor pulmonale presence: unspecified Qualified Code(s): I26.99 - Other pulmonary embolism without acute cor pulmonale Hypotension Qualifiers: Hypotension type: unspecified hypotension type Qualified Code(s): I95.9 - Hypotension, unspecified The scribe's documentation has been prepared under my direction and personally reviewed by me in its entirety. I confirm that the note above accurately reflects all work, treatment, procedures, and medical decision making performed by me.
[2019-05-17 22:18] LABS: Mucus Urine Present (None Prsent)
[2019-05-17] MEDS: VENLAFAXINE HCL 37.5 MG TAB PO SCH (22:24)
[2019-05-17] MEDS: CALCIUM CITRATE 950 MG TAB PO SCH (22:24)
[2019-05-17] MEDS: Heparin Adult STANDARD Wt-Based Dextrose 5% 25,000 units/500 mL IV SCH (22:24)
[2019-05-17] MEDS: ALBUTEROL HFA 8 GM INHALER INH SCH (22:24)
[2019-05-17] MEDS: CHOLECALCIFEROL 1,000 UNITS TAB PO SCH (22:24)
[2019-05-17] MEDS: NOREPINEPHRINE BIT INJ 8 MG in DEXTROSE 5% 500 ML IV SCH (22:24)
[2019-05-17] MEDS: THIAMINE HCL 100 MG TAB PO SCH (22:25)
--- NOTE | 2019-05-17 23:49 | Procedure Note ---
Procedure Note Date of Service May 17, 2019 Procedure date: Noted above Procedure: Radial artery cannulation Pre-procedure Diagnosis: Need for invasive monitoring, hypotension/frequent blood draws Post-procedure Diagnosis: same as above Prior to Procedure: Informed Consent: The risks, benefits, indications, potential complications, and alternatives were explained to the patient and informed consent obtained verbally. Attending Staff: Marina Madrigal DO Skin Prep: Chlorhexidine Anesthesia: 3 mL 1% lidocaine without epinephrine The identity of the patient was confirmed and a bedside time out was performed. Description of Procedure: After sterile prep and sterile drape utilizing standard sterile technique the superficial skin of the right radial artery was anesthetized. The target artery was identified via dynamic ultrasound guidance and entered with a 20-gauge arrow Angiocath. Pulsatile bright red blood return was noted. Via modified Seldinger technique the self-contained guidewire was advanced and the Angiocath advanced over the guidewire. The guidewire was removed and brisk arterial blood return was noted. The pressure monitor was connected, and the arterial line was secured via commercial securement device. A sterile dressing was then applied. Complications: None Estimated blood loss: Trace Patient tolerated the procedure well. Coding CPT Codes Tubes, Drains, and Vasc Access - Tubes, Drains, and Vasc Access: [id number] Place Catheter In Artery ([id number])
[2019-05-18] MEDS ORDERED: LOPERAMIDE HCL 2 MG CAP PO STA (00:27)
[2019-05-18] MEDS ORDERED: ICU PROTOCOL FOR HYPERGLYCEMIA PRN (00:43)
[2019-05-18 04:32] LABS: Hematocrit (blood only) 25.3 % (37-47); Hemoglobin 8.7 g/dL (12.0-16.0); Mean Corpuscular Hemoglobin 35.4 pg (25-34); Mean Corpuscular Hgb Conc 34.4 g/dL (32-36); Mean Corpuscular Volume 102.8 fL (80-100); Platelet Count 157 K/uL (130-400); RDW Coefficient of Variation 16.1 % (11.5-14.5); RDW Standard Deviation 59.7 fL (36.4-46.3); Red Blood Count 2.46 M/uL (4.2-5.4); White Blood Count 8.48 K/uL (4.8-10.8)
[2019-05-18 04:33] LABS: Basophils # (auto) 0.02 K/uL (0-0.2); Basophils % (auto) 0.2 %; Eosinophils # (auto) 0.13 K/uL (0-0.5); Eosinophils % (auto) 1.5 %; Immature Granulocytes # (auto) 0.03 K/uL (0.00-0.02); Immature Granulocytes % (auto) 0.4 %; Lymphocytes # (auto) 1.79 K/uL (1.2-3.4); Lymphocytes % (auto) 21.1 %; Mean Platelet Volume 9.3 fL (7.4-10.4); Monocytes # (auto) 0.57 K/uL (0.11-0.59); Monocytes % (auto) 6.7 %; Neutrophils # (auto) 5.94 K/uL (1.4-6.5); Neutrophils % (auto) 70.1 %
[2019-05-18] MEDS ORDERED: fentaNYL citrate 100 MCG/2 ML VIAL IV ONE (04:40)
[2019-05-18 04:52] LABS: Creatinine Clr Calc Pharmacy 78.3 ml/min; Est GFR (African American) 113.2; Est GFR (Non-African American) 97.7; Magnesium 1.9 mg/dl (1.8-2.4); Potassium 3.3 mmol/L (3.5-5.1)
[2019-05-18 04:57] LABS: Partial Thromboplastin Ratio 2.2
[2019-05-18 04:58] LABS: Partial Thromboplastin Time 60.4 Seconds (21.0-31.0); Phosphorus 3.5 mg/dl (2.5-4.9); Troponin I 0.028 ng/ml (0-0.045)
[2019-05-18] MEDS: NORMOSOL-R 1,000 ML IV SCH (04:59)
--- NOTE | 2019-05-18 05:19 | History and Physical Report ---
DATE OF ADMISSION: 05/18/2019 The patient was admitted to ICU on 05/17/2019 but the patient was seen on 05/18/2019. CHIEF COMPLAINT: Chest pain, shortness of breath, submassive PE. HISTORY OF PRESENT ILLNESS: This is a 59-year-old female with past medical history significant for hyperlipidemia, multinodular goiter, left ventricular hypertrophy, gastric bypass surgery for obesity, reflux esophagitis, moderate protein-calorie malnutrition, mild cervical dysplasia, restless legs syndrome, fibromyalgia, ulcer at site of the surgical anastomosis following gastric bypass, depression, history of alcohol use, presents with chest pain and shortness of breath going on for last 2 days and patient was found to have submassive PE in the ER with elevated lactic acid and was hypotensive and Critical Care gave her TPA and status post right IJ central line and A-line and started on heparin and currently in the ICU. She says still there is some shortness of breath, still has 8/10 in severity pain in the left side of the chest, has some headache. She was feeling for last 2 days dizziness and walking 5 feet to the bathroom making her short of breath and she was profusely sweating in the nighttime. Has dry cough. Denies any fever, chills, no nausea, no vomiting. Appetite is okay. No abdominal pain. Normal bowel and bladder movements. No hematuria or black stools. On 04/21/2019, she fell when she was getting up from bed and she has a small wound on her left nichols region with a dressing. No drainage seen. Currently hemodynamics are stable. ALLERGIES: DULOXETINE, BACTRIM, CEPHALEXIN, CLONAZEPAM, CODEINE, HYDROMORPHONE, NSAIDS. PAST MEDICAL HISTORY: As mentioned above. PAST SURGICAL HISTORY: Right knee arthroscopy, bronchoscopy, colonoscopy, multiple EGDs, laparoscopic gastric John-en-Y bypass surgery, laparoscopic cholecystectomy, paraesophageal hernia repair, laparoscopy with mesh placement, removal of appendix, right rotator cuff repair. MEDICATIONS: The patient is on BuSpar 10 mg p.o. at bedtime, Augmentin, vitamin A 89497 units daily, gabapentin 100 mg p.o. t.i.d., Remeron 40 mg p.o. at bedtime, Effexor 75 mg p.o. b.i.d., potassium chloride 20 mEq p.o. daily, omeprazole 20 mg p.o. b.i.d., Ventolin 2 puffs q.i.d., calcium citrate 950 mg p.o. b.i.d., vitamin D 2000 units p.o. daily, magnesium 100 mg p.o. daily, Zofran 4 mg p.o. q. 8 hours p.r.n., thiamine 100 mg p.o. daily, Ensure 1 can daily, Nystatin powder t.i.d. p.r.n. for abdominal folds, pediatric multivitamins 1 tablet b.i.d., vitamin B12 1000 mcg intramuscular injection q. 4 weeks. FAMILY HISTORY: Significant for the patient is adopted. SOCIAL HISTORY: , currently living with her fiance. Smokes 1 pack a day for last 36 years. Stopped drinking in November 2018. No drugs. REVIEW OF SYMPTOMS: As per HPI. Rest of review of symptoms negative. PHYSICAL EXAMINATION: GENERAL: The patient is moderate build, not in acute distress currently. VITAL SIGNS: Temperature 36.4, pulse 95, respiratory rate 18, blood pressure 104/76, oxygen currently 90% on room air. HEENT: No pallor, no icterus. Pupils equal, round, and reactive to light. NECK: No JVD. Status post right IJ central line. Supple. CARDIOVASCULAR: S1, S2 heard, regular rate and rhythm, no murmur, no gallop. RESPIRATORY SYSTEM: Normal AP diameter. No accessory muscle use. No wheezing, no crackles. ABDOMEN: Soft, bowel sounds present, nontender. No distention. CENTRAL NERVOUS SYSTEM: Alert and oriented. Obeys commands. Moves extremities. EXTREMITIES: No edema, no erythema. Left nichols has a bruise with a dressing. No drainage seen. LABORATORIES DATA: WBC 8.3, hemoglobin 10.8, hematocrit 32.3, platelets 196. PT 12.6, INR 1.2, APTT 34.1. Venous blood gases pH of 7.39, pCO2 35, pO2 of 41, bicarbonate 20. Sodium 137, potassium 3.1, chloride 106, BUN 13, creatinine 0.9, serum glucose 106, lactate was 7, repeat was 3.5, magnesium 2, iron 20, TIBC 115. Transferrin 88, ferritin 270, total bilirubin 0.5, AST 17, ALT 19, alkaline phosphatase is 189. Troponin I 0.02. BNP 18,000. Vitamin B12 1737. Folate more than 24. Procalcitonin 0.12, free T4 0.99 and free T3 1.79. Urinalysis positive for nitrite, trace leukocyte esterase. Opiate screen negative. Influenza A and B PCR negative. EKG: Shows sinus tachycardia with a rate of 101. T-wave inversions in the inferior and anterior leads. IMAGING: Chest x-ray, no evidence of pneumothorax, developing right upper lobe infiltrate. CT of the head, no acute intracranial abnormality seen. CT of the chest, extensive bilateral pulmonary emboli with no involvement of the main pulmonary arteries bilaterally, patchy parenchymal infiltrative changes bilaterally. ASSESSMENT AND PLAN: 1.This 59-year-old female who presents with chest pain, shortness of breath, going for last 2 days with dizziness and shortness of breath on minimal exertion and found to have a submassive pulmonary embolism. She was hemodynamically unstable with hypotension and also elevated lactate of 7. She was emergently seen by critical care and status post TPA and started IV heparin. Status post A-line and status post right IJ, currently hemodynamically stable, still has some chest pain. Closely monitored in the ICU. 2. Acute cor pulmonale from the submassive pulmonary embolism with elevated lactic acid, lactic acid is coming down .Close monitor in ICU. 3. Hypotension secondary to submassive pulmonary embolism, is improving, fluids. 4. History of malnutrition: Continue Ensure. 5. History of alcoholism, stopped drinking. on thiamine. 6. History of gastric bypass surgery: Continue multivitamins. 7. History of depression, continue venlafaxine, Remeron is on hold. 8. Gastroesophageal reflux disease.PPI 9. Deep venous thrombosis prophylaxis: Currently on IV heparin. 10. Disposition. Closely monitoring in ICU. Level 1 full code. MTDD
[2019-05-18] MEDS ORDERED: POTASSIUM PHOS 3 MMOL/1 ML INFUSION IV STA (05:43)
[2019-05-18] MEDS ORDERED: MAGNESIUM SULFATE / D5W 1 GM/100 ML BAG IV ONE (05:43)
[2019-05-18 06:14] LABS: iSTAT Arterial Blood Gas HCO3 21 meg/L (19-24); iSTAT Arterial Blood Gas pCO2 33 mmHg (35-46); iSTAT Arterial Blood Gas pH 7.41 (7.35-7.45); iSTAT Arterial Blood Gas pO2 66 mmHg (80-95); iSTAT Carbon Dioxide 22 mmol/L (24-31); iSTAT Site Art Line
[2019-05-18] MEDS ORDERED: POTASSIUM PHOSPHATE 15 MMOL in SODIUM CHLORIDE 0.9% 250 ML IV ONE (06:15)
[2019-05-18] MEDS: POTASSIUM CHLORIDE / WTR 20 MEQ/100 ML PLCT IV SCH ×2 (06:38→08:18)
[2019-05-18] MEDS: ONDANSETRON 4 MG TAB PO PRN (08:19)
[2019-05-18 08:30] LABS: iSTAT Arterial Blood Gas HCO3 23 meg/L (19-24); iSTAT Arterial Blood Gas pCO2 29 mmHg (35-46); iSTAT Arterial Blood Gas pH 7.51 (7.35-7.45); iSTAT Arterial Blood Gas pO2 233 mmHg (80-95); iSTAT Carbon Dioxide 23 mmol/L (24-31)
[2019-05-18 08:31] LABS: iSTAT Sample Type Arterial
--- NOTE | 2019-05-18 08:45 | Electrocardiogram Report ---
Test Reason : Blood Pressure : / mmHG Vent. Rate : 116 BPM Atrial Rate : 116 BPM P-R Int : 136 ms QRS Dur : 096 ms QT Int : 348 ms P-R-T Axes : 070 079 -49 degrees QTc Int : 483 ms Sinus tachycardia T-wave inversion in Anterior leads , consider ischemia T-wave inversion in Inferior leads , consider ischemia Abnormal ECG When compared with ECG of 23-SEP-2018 16:28, Vent. rate has increased BY 46 BPM Nonspecific T wave abnormality now evident in Inferior leads Inverted T waves have replaced nonspecific T wave abnormality in Anterior leads Confirmed by Tobias Valera ([id number]) on 05/18/2019 8:45:33 AM Referred By: REFERRED SELF Confirmed By:Tobias Valera
[2019-05-18] MEDS ORDERED: NON-FORMULARY MEDICATION (Food Supplemt, Lactose-Reduced [Ensure] 1 EA) PO SCH (09:00)
[2019-05-18] MEDS ORDERED: NON-FORMULARY MEDICATION (Magnesium 100 MG) PO SCH (09:00)
--- NOTE | 2019-05-18 09:03 | Electrocardiogram Report ---
Test Reason : Blood Pressure : / mmHG Vent. Rate : 101 BPM Atrial Rate : 101 BPM P-R Int : 150 ms QRS Dur : 094 ms QT Int : 460 ms P-R-T Axes : 062 078 -79 degrees QTc Int : 596 ms Sinus tachycardia T wave abnormality, consider inferior ischemia T wave abnormality, consider anterior ischemia Prolonged QT Abnormal ECG When compared with ECG of 17-MAY-2019 16:24, No significant change Confirmed by Tobias Valera ([id number]) on 05/18/2019 9:02:46 AM Referred By: REFERRED SELF Confirmed By:Tobias Valera
[2019-05-18] MEDS: VENLAFAXINE HCL 37.5 MG TAB PO SCH ×2 (09:20→20:24)
[2019-05-18] MEDS: THIAMINE HCL 100 MG TAB PO SCH ×2 (09:20→20:25)
[2019-05-18] MEDS: ALBUTEROL HFA 8 GM INHALER INH SCH ×4 (09:20→20:24)
[2019-05-18] MEDS: CALCIUM CITRATE 950 MG TAB PO SCH ×2 (09:20→20:24)
[2019-05-18] MEDS: FLINTSTONES COMPLETE CHEWABLE TAB PO SCH ×2 (09:20→20:24)
[2019-05-18] MEDS: CHOLECALCIFEROL 1,000 UNITS TAB PO SCH ×2 (09:20→20:24)
[2019-05-18] MEDS: FAMOTIDINE 20 MG in SYRINGE 3 ML IV SCH ×2 (09:21→20:24)
--- NOTE | 2019-05-18 10:34 | Electrocardiogram Report ---
Test Reason : Blood Pressure : / mmHG Vent. Rate : 092 BPM Atrial Rate : 092 BPM P-R Int : 164 ms QRS Dur : 082 ms QT Int : 450 ms P-R-T Axes : 050 080 052 degrees QTc Int : 556 ms Normal sinus rhythm Anterior infarct , age undetermined Prolonged QT Abnormal ECG When compared with ECG of 17-MAY-2019 16:59, (unconfirmed) No significant change Confirmed by Christian Valenzuela ([id number]) on 05/18/2019 10:34:14 AM Referred By: REFERRED SELF Confirmed By:Christian Valenzuela
[2019-05-18] MEDS: DIPHENOXYLATE/ATROPINE 2.5/0.025MG TAB PO PRN ×2 (11:48→20:24)
--- NOTE | 2019-05-18 15:01 | Hospitalist Progress Note ---
Date of Service May 18, 2019 Assessment & Plan (1) Pulmonary embolism: Acute shortness of breath for the last 2 or 3 days with bilateral calf pain for some time CTA noted to have extensive bilateral pulmonary embolism without any embolism in the main branch Received TPA and has been on intravenous heparin Saturating well on room air Clinically much better Appreciate burning machine operator input and recommendation Present on Admission?: Yes (2) Acute hypoxemic respiratory failure: Secondary to acute extensive bilateral pulmonary embolism Clinically better Noted to have high lactate but sepsis has been ruled out Received 1 dose of Levaquin and Zosyn in the emergency room No leukocytosis Flu has been negative Urine tox screen negative Antibiotics have been discontinued (3) Acute cor pulmonale: History of congestive heart failure Presented with acute cor pulmonale secondary to pulmonary embolism Hypotension.has been on intravenous pressors Awaiting echo (4) Hypotension: Likely secondary to CHF (5) Cellulitis of right lower extremity without foot: Has been going to wound care We will continue wound care in the hospital (6) Congestive heart failure, unspecified: As above No diuretics now due to very low blood pressure (7) Gastric bypass status for obesity: No acute symptoms Continue PPI (8) Depression: Has been getting antidepressants No acute delirium DVT prophylaxis Has been on intravenous heparin Subjective 05/18/2019 The patient was seen and examined in ICU She was admitted with the acute bilateral extensive pulmonary embolism that required TPA and now on heparin She has been very sedentary and mentioned that she cannot move around much due to profound weakness and she is a smoker Has been feeling a lot better since admission Review of Systems Review of Systems: All systems reviewed and are unremarkable except as noted below Respiratory: + wheezing; no cough, no dyspnea and no hemoptysis Musculoskeletal: no back pain Bilateral leg ulceration Physical Exam Physical Exam: Lying in bed comfortably with some anxiety Constitutional: well developed, well nourished, + ill appearing and + thin; no acute distress Eyes: PERRL, conjunctivae normal, anicteric sclerae ENMT: external ear and nose normal, oropharynx normal Neck: trachea midline, no thyromegaly Respiratory: normal respiratory effort; no respiratory distress Auscultation: lungs clear to auscultation bilaterally, + diminished lung sounds and + wheezes (Minimal wheezing) Cardiovascular: Rate/Rhythm: regular rate and regular rhythm Heart Sounds: no murmur Gastrointestinal (Abdomen): Inspection/Auscultation: abdomen normal to inspection and normal bowel sounds Percussion/Palpation: abdomen soft; abdomen nontender Musculoskeletal: No acute arthritis involving any joints Lymphatic: no cervical or axillary lymphadenopathy Results & Data Vital Signs (Past 12 Hours) Vital Signs Temp Pulse Resp BP Pulse Ox 05/18/19 14:03 116 H 26 H 84/58 L 96 05/18/19 14:00 116 H 24 96 05/18/19 13:32 113 H 27 H 114/76 93 05/18/19 13:30 113 H 29 H 92 05/18/19 13:02 118 H 20 83/66 L 94 05/18/19 13:00 127 H 17 95 05/18/19 12:32 121 H 19 102/80 94 05/18/19 12:30 124 H 34 H 95 05/18/19 12:04 115 H 18 89 L 05/18/19 12:03 115 H 26 H 95/66 L 95 05/18/19 12:00 115 H 21 95/66 L 96 05/18/19 11:30 117 H 33 H 97 05/18/19 11:02 112 H 23 86/54 L 94 05/18/19 11:00 113 H 23 96 05/18/19 10:32 110 H 31 H 101/56 L 96 05/18/19 10:30 109 H 21 96 05/18/19 10:02 108 H 25 H 96/60 L 97 05/18/19 10:00 110 H 33 H 93 05/18/19 09:32 106 H 19 104/68 93 05/18/19 09:30 108 H 30 H 83 L 05/18/19 09:03 114 H 28 H 87 L 05/18/19 09:02 106 H 21 98/62 L 96 05/18/19 09:00 108 H 17 97 05/18/19 08:30 24 89 L 05/18/19 08:02 110 H 20 115/76 99 05/18/19 08:00 36.9 C 110 H 20 102/67 98 05/18/19 07:33 112 H 19 104/42 L 82 L 05/18/19 07:30 22 83 L 05/18/19 07:03 106 H 20 100 05/18/19 07:02 105 H 15 102/67 98 05/18/19 07:00 106 H 25 H 99 05/18/19 06:45 104 H 23 100 05/18/19 06:31 106 H 20 102/73 100 05/18/19 06:30 107 H 20 100 05/18/19 06:15 16 87 L 05/18/19 06:02 109 H 16 110/61 98 05/18/19 06:00 110 H 18 99 05/18/19 05:45 103 H 24 100 05/18/19 05:31 105 H 16 106/74 99 05/18/19 05:30 105 H 17 99 05/18/19 05:15 105 H 18 97 05/18/19 05:06 36.4 C L 05/18/19 05:01 106 H 19 114/71 99 05/18/19 05:00 82 17 78 L 05/18/19 04:45 102 H 13 98 05/18/19 04:31 103 H 21 85/59 L 97 05/18/19 04:30 105 H 25 H 96 05/18/19 04:15 103 H 18 96 05/18/19 04:01 102 H 17 102/65 97 05/18/19 04:00 103 H 17 94 05/18/19 03:45 102 H 17 95 05/18/19 03:31 102 H 19 94/69 L 95 05/18/19 03:30 101 H 20 96 05/18/19 03:15 102 H 30 H 94 05/18/19 03:01 101 H 31 H 103/69 94 05/18/19 03:00 102 H 17 94 05/18/19 02:45 102 H 23 95 Laboratory Results Short CBC 05/17/19 05/18/19 Range/Units 16:52 04:24 WBC 8.37 8.48 (4.8-10.8) K/uL Hgb 10.8 L 8.7 L (12.0-16.0) g/dL Hct 32.3 L 25.3 L (37-47) % Plt Count 196 157 (130-400) K/uL BMP 05/17/19 05/18/19 16:52 04:24 Sodium 137 140 Potassium 3.1 L 3.3 L Chloride 106 112 H Carbon Dioxide 20 L 25 BUN 13 10 Creatinine 0.99 0.64 D Glucose 106 H 75 Calcium 8.3 L 7.0 L D Cardiac Enzymes 05/17/19 05/18/19 Range/Units 16:52 04:24 Troponin I 0.020 0.028 (0-0.045) ng/ml Liver Function 05/17/19 Range/Units 16:52 Total Bilirubin 0.5 (0.2-1) mg/dl AST 17 (15-37) U/L ALT 19 (12-78) U/L Alkaline Phosphatase 189 H (45-117) U/L Albumin 1.7 L (3.4-5.0) gm/dl Urine 05/17/19 Range/Units 21:00 Urine Color Dark Yellow Urine Appearance Clear (Clear) Urine pH 6.5 (4.5-7.5) Ur Specific [place] > 1.045 H (1.000-1.030) Urine Protein Negative (Negative) Urine Glucose (UA) Negative (Negative) Medications Administered Current Inpatient Medications Albuterol (Ventolin Hfa) 2 puffs INH QID [facility] Stop: 06/16/19 20:59 Last Admin: 05/18/19 09:20 Dose: 2 puffs Documented by: Buspirone HCl (Buspar) 10 mg PO HS [facility] Stop: 06/16/19 20:59 Last Admin: 05/17/19 22:25 Dose: 10 mg Documented by: Calcium Citrate (Citracal) 950 mg PO BID [facility] Stop: 06/16/19 20:59 Last Admin: 05/18/19 09:20 Dose: 950 mg Documented by: Diphenoxylate HCl/Atropine (Lomotil) 1 tab PO TID PRN PRN Reason: Diarrhea Stop: 06/17/19 10:03 Last Admin: 05/18/19 11:48 Dose: 1 tab Documented by: Norepinephrine Bitartrate 8 mg (/ Dextrose) 508 mls @ 0 mls/hr IV .Q0M [facility]; Protocol Stop: 06/16/19 19:03 Last Titration: 05/18/19 10:05 Dose: 0 mcg/kg/min, 0 mls/hr Documented by: Famotidine 20 mg/ Syringe 5 mls @ 2.5 mls/min IV Q12H [facility] Stop: 06/16/19 20:59 Last Admin: 05/18/19 09:21 Dose: 2.5 mls/min Documented by: Heparin Sodium/Dextrose (Heparin Sodium/Dextrose) 25,000 units in 500 mls @ 19 mls/hr IV .Q24H [facility]; Protocol Stop: 06/16/19 21:44 Last Titration: 05/18/19 07:16 Dose: 950 units/hr, 19 mls/hr Documented by: Thiamine HCl 500 mg/ Syringe 14 mls @ 2 mls/min IV TID [facility] Stop: 05/21/19 14:06 Thiamine HCl 500 mg/ Sodium (Chloride) 105 mls @ 210 mls/hr IV TID [facility] Stop: 05/21/19 14:29 Ioversol (Optiray 320 125ml) 115 ml IV ONCE PRN PRN Reason: Interaction Checking Stop: 05/21/19 17:54 Last Admin: 05/17/19 17:55 Dose: 115 ml Documented by: Miscellaneous ([facility] Protocol For Hyperglycemia) 1 ea N/A PRN PRN; Protocol PRN Reason: Hyperglycemia Protocol Stop: 05/19/19 19:22 Multivitamins/Folic Acid/Vitamin C (Flintstones Complete Chew Tab) 1 tab PO BID [facility] Stop: 06/17/19 08:59 Last Admin: 05/18/19 09:20 Dose: 1 tab Documented by: Ondansetron HCl (Zofran Tab) 4 mg PO Q8H PRN PRN Reason: Nausea Stop: 06/16/19 20:40 Last Admin: 05/18/19 08:19 Dose: 4 mg Documented by: Thiamine HCl (Vitamin B-1) 100 mg PO BID [facility] Stop: 06/16/19 20:59 Last Admin: 05/18/19 09:20 Dose: 100 mg Documented by: Venlafaxine HCl (Effexor) 75 mg PO BID [facility] Stop: 06/16/19 20:59 Last Admin: 05/18/19 09:20 Dose: 75 mg Documented by: Vitamin D (Vitamin D3) 2,000 units PO BID [facility] Stop: 06/16/19 20:59 Last Admin: 05/18/19 09:20 Dose: 2,000 units Documented by: (1) Pulmonary embolism Acute cor pulmonale presence: unspecified Chronicity: unspecified Pulmonary embolism type: unspecified Qualified Code(s): I26.99 - Other pulmonary embolism without acute cor pulmonale (2) Hypotension Hypotension type: unspecified hypotension type Qualified Code(s): I95.9 - Hypotension, unspecified
[2019-05-18] MEDS ORDERED: FUROSEMIDE 20 MG in SYRINGE 0 ML IV ONE (17:45)
[2019-05-18 18:08] LABS: BUN Creatinine Ratio 12.4 (10-20); Calcium 7.2 mg/dl (8.5-10.1); Creatinine Clr Calc Pharmacy 71.6 ml/min; Est GFR (African American) 109.9; Est GFR (Non-African American) 94.8; Magnesium 2.1 mg/dl (1.8-2.4); Potassium 4.2 mmol/L (3.5-5.1)
[2019-05-18 18:23] LABS: Phosphorus 3.9 mg/dl (2.5-4.9); Prealbumin 4.5 mg/dl (20-40)
[2019-05-18] MEDS: THIAMINE HCL 500 MG in 0.9 % SODIUM CHLORIDE 100 ML IV SCH (20:23)
[2019-05-18] MEDS: NOREPINEPHRINE BIT INJ 8 MG in DEXTROSE 5% 500 ML IV SCH (20:30)
[2019-05-18] MEDS: Heparin Adult STANDARD Wt-Based Dextrose 5% 25,000 units/500 mL IV SCH (20:32)
[2019-05-18] MEDS ORDERED: THIAMINE HCL 500 MG in SYRINGE 9 ML IV SCH (21:00)
--- NOTE | 2019-05-18 21:46 | Critical Care Progress Note ---
Date of Service May 18, 2019 Assessment & Plan (1) Acute cor pulmonale: Reason Critically Ill: Acute cor pulmonale requiring vasoactive medication administration PLAN: Resp: Acute hypoxic respiratory failure Submassive pulmonary embolism -Reviewed echocardiogram Probable pulmonary infarct seen on imaging CV: Hypotension Acute cor pulmonale -Proceeding with mild dose of diuretic in hopes to augment Collin Starling curve and have better flow through pulmonary vascular bed -Patient was off vasoactive medication and I trended serial lactates which continued to mildly climb I am concerned that she is relatively hypoperfusing so we have reinstituted vasoactive medication at this time. Tachycardia -Consideration given to wet unai -Patient received thiamine, we are unable to check a thiamine level as we need to wait 24 hours from any thiamine administration. -Given history of gastric bypass we will continue with 500 mg IV thiamine 3 times daily for 3 days Fluids/Renal: Lactic acidosis: Resolved ID: Holding anti-infectives at this time -Blood cultures pending GI/Nutrition: I am concerned for severe malnutrition including protein calorie malnutrition -Significant loss of subcutaneous fat and generalized edema -Patient reports significant weakness with activities of daily living Heme: Appears to have baseline anemia -Type and cross for 2 units Status post TPA administration in the emergency department -10 mg IV bolus followed by 40 mg continuous infusion as initial studies appear to have lower bleeding risk without significant mortality/morbidity benefit DVT prophylaxis: Heparin infusion 2 hours after TPA administration, PTT set to be drawn at that time Endocrine: ICU hyperglycemia protocol Vascular access: Emergent right internal jugular CVC, right radial arterial artery catheter Code Status: Full code PT OT consultation tomorrow: Suspect subacute rehab for final disposition Patient to remain in ICU given vasoactive medication needs (2) Acute hypoxemic respiratory failure: (3) Intravenous infiltration: (4) Gastric bypass status for obesity: (5) Chronic obstructive pulmonary disease: (6) Chronic kidney disease, stage 3: Subjective Patient feels significantly improved since yesterday. Answered several questions. Patient would prefer to be on NOAC for anticoagulation, her first who was on Coumadin and she would prefer not to have to worry about frequent testing Review of Systems Review of Systems: Mild exertional dyspnea, no chest pain, no dizziness no lightheadedness. Physical Exam Physical Exam: General: Alert. nontoxic. Skin: Warm, dry, Head: Atraumatic, loss of subcutaneous fat surrounding the eyes rather sunken appearance Ears, nose, mouth and throat: airway patent Cardiovascular: Normal peripheral perfusion Respiratory: no respiratory distress Gastrointestinal: Non distended Musculoskeletal: No deformity, significant muscle wasting in the lumbricals of the fingers, 1+ pitting edema of the lower extremities Results & Data Vital Signs (Past 12 Hours) Vital Signs Temp Pulse Resp BP Pulse Ox 05/18/19 20:00 37 C 113 H 19 98 05/18/19 19:45 116 H 19 95 05/18/19 19:43 120 H 26 H 86/62 L 94 05/18/19 19:30 116 H 20 92 05/18/19 19:15 21 05/18/19 19:00 113 H 20 79 L 05/18/19 18:41 21 95/57 L 05/18/19 18:30 113 H 19 79 L 05/18/19 18:00 111 H 19 62 L 05/18/19 17:42 112 H 30 H 91/62 L 05/18/19 17:30 112 H 22 05/18/19 17:00 118 H 22 05/18/19 16:33 115 H 19 76/55 L 05/18/19 16:30 114 H 20 05/18/19 16:04 20 05/18/19 16:03 120 H 26 H 05/18/19 16:00 37 C 114 H 21 05/18/19 15:33 112 H 19 79/56 L 76 L 05/18/19 15:30 117 H 29 H 62 L 05/18/19 15:04 110 H 31 H 84/49 L 82 L 05/18/19 15:00 113 H 28 H 74 L 05/18/19 14:30 19 75 L 05/18/19 14:04 22 86 L 05/18/19 14:03 116 H 26 H 84/58 L 96 05/18/19 14:00 116 H 24 96 05/18/19 13:32 113 H 27 H 114/76 93 05/18/19 13:30 113 H 29 H 92 05/18/19 13:02 118 H 20 83/66 L 94 05/18/19 13:00 127 H 17 95 05/18/19 12:32 121 H 19 102/80 94 05/18/19 12:30 124 H 34 H 95 05/18/19 12:04 115 H 18 89 L 05/18/19 12:03 115 H 26 H 95/66 L 95 05/18/19 12:00 115 H 21 95/66 L 96 05/18/19 11:30 117 H 33 H 97 05/18/19 11:02 112 H 23 86/54 L 94 05/18/19 11:00 113 H 23 96 05/18/19 10:32 110 H 31 H 101/56 L 96 05/18/19 10:30 109 H 21 96 05/18/19 10:02 108 H 25 H 96/60 L 97 05/18/19 10:00 110 H 33 H 93 Laboratory Results 05/18/19 05/18/19 05/18/19 Range/Units 17:21 16:30 14:34 WBC (4.8-10.8) K/uL RBC (4.2-5.4) M/uL Hgb (12.0-16.0) g/dL Hct (37-47) % MCV (80-100) fL MCH (25-34) pg MCHC (32-36) g/dL RDW Std Deviation (36.4-46.3) fL RDW Coeff of Liz (11.5-14.5) % Plt Count (130-400) K/uL MPV (7.4-10.4) fL Immature Gran % (Auto) % Neut % (Auto) % Lymph % (Auto) % [place] % (Auto) % Eos % (Auto) % Baso % (Auto) % Immature Gran # (Auto) (0.00-0.02) K/uL Neut # (Auto) (1.4-6.5) K/uL Lymph # (Auto) (1.2-3.4) K/uL [place] # (Auto) (0.11-0.59) K/uL Eos # (Auto) (0-0.5) K/uL Baso # (Auto) (0-0.2) K/uL APTT (21.0-31.0) Seconds PTT Ratio Specimen Type Sample Site POC pH (7.35-7.45) POC pCO2 (35-46) mmHg POC pO2 (80-95) mmHg POC HCO3 (19-24) dorina/L POC Total CO2 (24-31) mmol/L POC Base Excess (-9-1.8) dorina/L POC ABG O2 Sat (90-95) % Cole Test O2 Delivery Device Sodium 137 (136-145) mmol/L Potassium 4.2 D (3.5-5.1) mmol/L Chloride 111 H (98-107) mmol/L Carbon Dioxide 22 (21-32) mmol/L Anion Gap 5.0 (3-11) BUN 9 (7-18) mg/dl Creatinine 0.70 (0.6-1.2) mg/dl Est Cr Clr Drug Dosing 71.6 ml/min Est GFR ( Amer) 109.9 Est GFR (Non-Af Amer) 94.8 BUN/Creatinine Ratio 12.4 (10-20) Glucose 94 (70-99) mg/dl POC Glucose 96 (70-99) mg/dl POC Glucose (other) (70-99) mg/dl Lactate 2.9 H* (0.4-2.0) mmol/L Calcium 7.2 L (8.5-10.1) mg/dl Phosphorus 3.9 (2.5-4.9) mg/dl Magnesium 2.1 (1.8-2.4) mg/dl Troponin I (0-0.045) ng/ml NT-Pro-B Natriuret Pep (0-900) pg/ml Prealbumin 4.5 L (20-40) mg/dl Vitamin B12 (211-911) pg/ml Folate (>5.38) ng/ml Free T3 (2.3-4.2) pg/ml Urine Color Urine Appearance (Clear) Urine pH (4.5-7.5) Ur Specific [place] (1.000-1.030) Urine Protein (Negative) Urine Glucose (UA) (Negative) Urine Ketones (Negative) Urine Blood (Negative) Urine Nitrite (Negative) Urine Bilirubin (Negative) Urine Urobilinogen (Negative) Ur Leukocyte Esterase (Negative) Urine WBC (Auto) (0-5) /hpf Urine RBC (Auto) (0-4) /hpf U Hyaline Cast (Auto) (0-5) /lpf U Epithel Cells (Auto) (0-5) /lpf Urine Bacteria (Auto) (Negative) Urine Mucus (None Prsent) Nasal Screen MRSA (PCR) (Negative) 05/18/19 05/18/19 05/18/19 Range/Units 11:59 06:21 06:15 WBC (4.8-10.8) K/uL RBC (4.2-5.4) M/uL Hgb (12.0-16.0) g/dL Hct (37-47) % MCV (80-100) fL MCH (25-34) pg MCHC (32-36) g/dL RDW Std Deviation (36.4-46.3) fL RDW Coeff of Liz (11.5-14.5) % Plt Count (130-400) K/uL MPV (7.4-10.4) fL Immature Gran % (Auto) % Neut % (Auto) % Lymph % (Auto) % [place] % (Auto) % Eos % (Auto) % Baso % (Auto) % Immature Gran # (Auto) (0.00-0.02) K/uL Neut # (Auto) (1.4-6.5) K/uL Lymph # (Auto) (1.2-3.4) K/uL [place] # (Auto) (0.11-0.59) K/uL Eos # (Auto) (0-0.5) K/uL Baso # (Auto) (0-0.2) K/uL APTT (21.0-31.0) Seconds PTT Ratio Specimen Type Sample Site POC pH (7.35-7.45) POC pCO2 (35-46) mmHg POC pO2 (80-95) mmHg POC HCO3 (19-24) dorina/L POC Total CO2 (24-31) mmol/L POC Base Excess (-9-1.8) dorina/L POC ABG O2 Sat (90-95) % Cole Test O2 Delivery Device Sodium (136-145) mmol/L Potassium (3.5-5.1) mmol/L Chloride (98-107) mmol/L Carbon Dioxide (21-32) mmol/L Anion Gap (3-11) BUN (7-18) mg/dl Creatinine (0.6-1.2) mg/dl Est Cr Clr Drug Dosing ml/min Est GFR ( Amer) Est GFR (Non-Af Amer) BUN/Creatinine Ratio (10-20) Glucose (70-99) mg/dl POC Glucose (70-99) mg/dl POC Glucose (other) 111 H 60 L* (70-99) mg/dl Lactate 1.9 (0.4-2.0) mmol/L Calcium (8.5-10.1) mg/dl Phosphorus (2.5-4.9) mg/dl Magnesium (1.8-2.4) mg/dl Troponin I (0-0.045) ng/ml NT-Pro-B Natriuret Pep (0-900) pg/ml Prealbumin (20-40) mg/dl Vitamin B12 (211-911) pg/ml Folate (>5.38) ng/ml Free T3 (2.3-4.2) pg/ml Urine Color Urine Appearance (Clear) Urine pH (4.5-7.5) Ur Specific [place] (1.000-1.030) Urine Protein (Negative) Urine Glucose (UA) (Negative) Urine Ketones (Negative) Urine Blood (Negative) Urine Nitrite (Negative) Urine Bilirubin (Negative) Urine Urobilinogen (Negative) Ur Leukocyte Esterase (Negative) Urine WBC (Auto) (0-5) /hpf Urine RBC (Auto) (0-4) /hpf U Hyaline Cast (Auto) (0-5) /lpf U Epithel Cells (Auto) (0-5) /lpf Urine Bacteria (Auto) (Negative) Urine Mucus (None Prsent) Nasal Screen MRSA (PCR) (Negative) 05/18/19 05/18/19 05/18/19 Range/Units 05:16 04:24 04:24 WBC (4.8-10.8) K/uL RBC (4.2-5.4) M/uL Hgb (12.0-16.0) g/dL Hct (37-47) % MCV (80-100) fL MCH (25-34) pg MCHC (32-36) g/dL RDW Std Deviation (36.4-46.3) fL RDW Coeff of Liz (11.5-14.5) % Plt Count (130-400) K/uL MPV (7.4-10.4) fL Immature Gran % (Auto) % Neut % (Auto) % Lymph % (Auto) % [place] % (Auto) % Eos % (Auto) % Baso % (Auto) % Immature Gran # (Auto) (0.00-0.02) K/uL Neut # (Auto) (1.4-6.5) K/uL Lymph # (Auto) (1.2-3.4) K/uL [place] # (Auto) (0.11-0.59) K/uL Eos # (Auto) (0-0.5) K/uL Baso # (Auto) (0-0.2) K/uL APTT (21.0-31.0) Seconds PTT Ratio Specimen Type Sample Site Art Line POC pH 7.41 (7.35-7.45) POC pCO2 33 L (35-46) mmHg POC pO2 66 L (80-95) mmHg POC HCO3 21 (19-24) dorina/L POC Total CO2 22 L (24-31) mmol/L POC Base Excess -4.0 (-9-1.8) dorina/L POC ABG O2 Sat 93.0 (90-95) % Cole Test NA O2 Delivery Device Room Air Sodium 140 (136-145) mmol/L Potassium 3.3 L (3.5-5.1) mmol/L Chloride 112 H (98-107) mmol/L Carbon Dioxide 25 (21-32) mmol/L Anion Gap 3.0 (3-11) BUN 10 (7-18) mg/dl Creatinine 0.64 D (0.6-1.2) mg/dl Est Cr Clr Drug Dosing 78.3 ml/min Est GFR ( Amer) 113.2 Est GFR (Non-Af Amer) 97.7 BUN/Creatinine Ratio 16.0 (10-20) Glucose 75 (70-99) mg/dl POC Glucose (70-99) mg/dl POC Glucose (other) (70-99) mg/dl Lactate 1.0 (0.4-2.0) mmol/L Calcium 7.0 L D (8.5-10.1) mg/dl Phosphorus 3.5 (2.5-4.9) mg/dl Magnesium 1.9 (1.8-2.4) mg/dl Troponin I 0.028 (0-0.045) ng/ml NT-Pro-B Natriuret Pep 64986 H (0-900) pg/ml Prealbumin (20-40) mg/dl Vitamin B12 (211-911) pg/ml Folate (>5.38) ng/ml Free T3 (2.3-4.2) pg/ml Urine Color Urine Appearance (Clear) Urine pH (4.5-7.5) Ur Specific [place] (1.000-1.030) Urine Protein (Negative) Urine Glucose (UA) (Negative) Urine Ketones (Negative) Urine Blood (Negative) Urine Nitrite (Negative) Urine Bilirubin (Negative) Urine Urobilinogen (Negative) Ur Leukocyte Esterase (Negative) Urine WBC (Auto) (0-5) /hpf Urine RBC (Auto) (0-4) /hpf U Hyaline Cast (Auto) (0-5) /lpf U Epithel Cells (Auto) (0-5) /lpf Urine Bacteria (Auto) (Negative) Urine Mucus (None Prsent) Nasal Screen MRSA (PCR) (Negative) 05/18/19 05/18/19 05/18/19 Range/Units 04:24 04:24 00:28 WBC 8.48 (4.8-10.8) K/uL RBC 2.46 L (4.2-5.4) M/uL Hgb 8.7 L (12.0-16.0) g/dL Hct 25.3 L (37-47) % MCV 102.8 H (80-100) fL MCH 35.4 H (25-34) pg MCHC 34.4 (32-36) g/dL RDW Std Deviation 59.7 H (36.4-46.3) fL RDW Coeff of Liz 16.1 H (11.5-14.5) % Plt Count 157 (130-400) K/uL MPV 9.3 (7.4-10.4) fL Immature Gran % (Auto) 0.4 % Neut % (Auto) 70.1 % Lymph % (Auto) 21.1 % [place] % (Auto) 6.7 % Eos % (Auto) 1.5 % Baso % (Auto) 0.2 % Immature Gran # (Auto) 0.03 H (0.00-0.02) K/uL Neut # (Auto) 5.94 (1.4-6.5) K/uL Lymph # (Auto) 1.79 (1.2-3.4) K/uL [place] # (Auto) 0.57 (0.11-0.59) K/uL Eos # (Auto) 0.13 (0-0.5) K/uL Baso # (Auto) 0.02 (0-0.2) K/uL APTT 60.4 H* (21.0-31.0) Seconds PTT Ratio 2.2 Specimen Type Sample Site POC pH (7.35-7.45) POC pCO2 (35-46) mmHg POC pO2 (80-95) mmHg POC HCO3 (19-24) dorina/L POC Total CO2 (24-31) mmol/L POC Base Excess (-9-1.8) dorina/L POC ABG O2 Sat (90-95) % Cole Test O2 Delivery Device Sodium (136-145) mmol/L Potassium (3.5-5.1) mmol/L Chloride (98-107) mmol/L Carbon Dioxide (21-32) mmol/L Anion Gap (3-11) BUN (7-18) mg/dl Creatinine (0.6-1.2) mg/dl Est Cr Clr Drug Dosing ml/min Est GFR ( Amer) Est GFR (Non-Af Amer) BUN/Creatinine Ratio (10-20) Glucose (70-99) mg/dl POC Glucose (70-99) mg/dl POC Glucose (other) (70-99) mg/dl Lactate 2.6 H* (0.4-2.0) mmol/L Calcium (8.5-10.1) mg/dl Phosphorus (2.5-4.9) mg/dl Magnesium (1.8-2.4) mg/dl Troponin I (0-0.045) ng/ml NT-Pro-B Natriuret Pep (0-900) pg/ml Prealbumin (20-40) mg/dl Vitamin B12 (211-911) pg/ml Folate (>5.38) ng/ml Free T3 (2.3-4.2) pg/ml Urine Color Urine Appearance (Clear) Urine pH (4.5-7.5) Ur Specific [place] (1.000-1.030) Urine Protein (Negative) Urine Glucose (UA) (Negative) Urine Ketones (Negative) Urine Blood (Negative) Urine Nitrite (Negative) Urine Bilirubin (Negative) Urine Urobilinogen (Negative) Ur Leukocyte Esterase (Negative) Urine WBC (Auto) (0-5) /hpf Urine RBC (Auto) (0-4) /hpf U Hyaline Cast (Auto) (0-5) /lpf U Epithel Cells (Auto) (0-5) /lpf Urine Bacteria (Auto) (Negative) Urine Mucus (None Prsent) Nasal Screen MRSA (PCR) (Negative) 05/17/19 05/17/19 05/17/19 Range/Units 21:00 20:51 20:51 WBC (4.8-10.8) K/uL RBC (4.2-5.4) M/uL Hgb (12.0-16.0) g/dL Hct (37-47) % MCV (80-100) fL MCH (25-34) pg MCHC (32-36) g/dL RDW Std Deviation (36.4-46.3) fL RDW Coeff of Liz (11.5-14.5) % Plt Count (130-400) K/uL MPV (7.4-10.4) fL Immature Gran % (Auto) % Neut % (Auto) % Lymph % (Auto) % [place] % (Auto) % Eos % (Auto) % Baso % (Auto) % Immature Gran # (Auto) (0.00-0.02) K/uL Neut # (Auto) (1.4-6.5) K/uL Lymph # (Auto) (1.2-3.4) K/uL [place] # (Auto) (0.11-0.59) K/uL Eos # (Auto) (0-0.5) K/uL Baso # (Auto) (0-0.2) K/uL APTT (21.0-31.0) Seconds PTT Ratio Specimen Type Sample Site POC pH (7.35-7.45) POC pCO2 (35-46) mmHg POC pO2 (80-95) mmHg POC HCO3 (19-24) dorina/L POC Total CO2 (24-31) mmol/L POC Base Excess (-9-1.8) dorina/L POC ABG O2 Sat (90-95) % Cole Test O2 Delivery Device Sodium (136-145) mmol/L Potassium (3.5-5.1) mmol/L Chloride (98-107) mmol/L Carbon Dioxide (21-32) mmol/L Anion Gap (3-11) BUN (7-18) mg/dl Creatinine (0.6-1.2) mg/dl Est Cr Clr Drug Dosing ml/min Est GFR ( Amer) Est GFR (Non-Af Amer) BUN/Creatinine Ratio (10-20) Glucose (70-99) mg/dl POC Glucose (70-99) mg/dl POC Glucose (other) (70-99) mg/dl Lactate (0.4-2.0) mmol/L Calcium (8.5-10.1) mg/dl Phosphorus (2.5-4.9) mg/dl Magnesium (1.8-2.4) mg/dl Troponin I (0-0.045) ng/ml NT-Pro-B Natriuret Pep (0-900) pg/ml Prealbumin (20-40) mg/dl Vitamin B12 1737 H (211-911) pg/ml Folate > 24.00 (>5.38) ng/ml Free T3 1.79 L (2.3-4.2) pg/ml Urine Color Dark Yellow Urine Appearance Clear (Clear) Urine pH 6.5 (4.5-7.5) Ur Specific [place] > 1.045 H (1.000-1.030) Urine Protein Negative (Negative) Urine Glucose (UA) Negative (Negative) Urine Ketones Negative (Negative) Urine Blood Negative (Negative) Urine Nitrite Positive A (Negative) Urine Bilirubin Negative (Negative) Urine Urobilinogen Negative (Negative) Ur Leukocyte Esterase Trace H (Negative) Urine WBC (Auto) 1-5 (0-5) /hpf Urine RBC (Auto) 10-30 H (0-4) /hpf U Hyaline Cast (Auto) 10-30 H (0-5) /lpf U Epithel Cells (Auto) >30 H (0-5) /lpf Urine Bacteria (Auto) Negative (Negative) Urine Mucus Present A (None Prsent) Nasal Screen MRSA (PCR) (Negative) 05/17/19 05/17/19 Range/Units 20:07 19:20 WBC (4.8-10.8) K/uL RBC (4.2-5.4) M/uL Hgb (12.0-16.0) g/dL Hct (37-47) % MCV (80-100) fL MCH (25-34) pg MCHC (32-36) g/dL RDW Std Deviation (36.4-46.3) fL RDW Coeff of Liz (11.5-14.5) % Plt Count (130-400) K/uL MPV (7.4-10.4) fL Immature Gran % (Auto) % Neut % (Auto) % Lymph % (Auto) % [place] % (Auto) % Eos % (Auto) % Baso % (Auto) % Immature Gran # (Auto) (0.00-0.02) K/uL Neut # (Auto) (1.4-6.5) K/uL Lymph # (Auto) (1.2-3.4) K/uL [place] # (Auto) (0.11-0.59) K/uL Eos # (Auto) (0-0.5) K/uL Baso # (Auto) (0-0.2) K/uL APTT (21.0-31.0) Seconds PTT Ratio Specimen Type Arterial Sample Site POC pH 7.51 H* (7.35-7.45) POC pCO2 29 L (35-46) mmHg POC pO2 233 H (80-95) mmHg POC HCO3 23 (19-24) dorina/L POC Total CO2 23 L (24-31) mmol/L POC Base Excess -1.0 (-9-1.8) dorina/L POC ABG O2 Sat 100.0 H (90-95) % Cole Test O2 Delivery Device Sodium (136-145) mmol/L Potassium (3.5-5.1) mmol/L Chloride (98-107) mmol/L Carbon Dioxide (21-32) mmol/L Anion Gap (3-11) BUN (7-18) mg/dl Creatinine (0.6-1.2) mg/dl Est Cr Clr Drug Dosing ml/min Est GFR ( Amer) Est GFR (Non-Af Amer) BUN/Creatinine Ratio (10-20) Glucose (70-99) mg/dl POC Glucose (70-99) mg/dl POC Glucose (other) (70-99) mg/dl Lactate (0.4-2.0) mmol/L Calcium (8.5-10.1) mg/dl Phosphorus (2.5-4.9) mg/dl Magnesium (1.8-2.4) mg/dl Troponin I (0-0.045) ng/ml NT-Pro-B Natriuret Pep (0-900) pg/ml Prealbumin (20-40) mg/dl Vitamin B12 (211-911) pg/ml Folate (>5.38) ng/ml Free T3 (2.3-4.2) pg/ml Urine Color Urine Appearance (Clear) Urine pH (4.5-7.5) Ur Specific [place] (1.000-1.030) Urine Protein (Negative) Urine Glucose (UA) (Negative) Urine Ketones (Negative) Urine Blood (Negative) Urine Nitrite (Negative) Urine Bilirubin (Negative) Urine Urobilinogen (Negative) Ur Leukocyte Esterase (Negative) Urine WBC (Auto) (0-5) /hpf Urine RBC (Auto) (0-4) /hpf U Hyaline Cast (Auto) (0-5) /lpf U Epithel Cells (Auto) (0-5) /lpf Urine Bacteria (Auto) (Negative) Urine Mucus (None Prsent) Nasal Screen MRSA (PCR) Negative (Negative) Coding Level of Care Code Critical Care 1st 30-74 mins Diagnoses Acute cor pulmonale I26.09 Acute hypoxemic respiratory failure J96.01 Intravenous infiltration T80.1XXA Encounter type: initial encounter Gastric bypass status for obesity Z98.84 Chronic obstructive pulmonary disease J44.9 COPD type: unspecified COPD Chronic kidney disease, stage 3 N18.3 Time Spent (min) 50 Comment I have personally spent 50 minutes of critical care time in the direct management of this patient. This is a life/limb threatening event. This includes time spent evaluating patient, direct bedside care, chart review, placing orders, interpretation of diagnostic studies, discussion with consultants, patient, and/or family members regarding treatment decisions, as well as other required patient management activities. This time is exclusive of all separately billable procedures, and teaching time and separate from and in addition to any other critical care service time. (1) Intravenous infiltration Encounter type: initial encounter Qualified Code(s): T80.1XXA - Vascular complications following infusion, transfusion and therapeutic injection, initial encounter (2) Chronic obstructive pulmonary disease COPD type: unspecified COPD Qualified Code(s): J44.9 - Chronic obstructive pulmonary disease, unspecified
[2019-05-18] MEDS: MIRTAZAPINE TAB 15 MG TAB PO SCH (22:32)
[2019-05-19] MEDS ORDERED: SODIUM CHLORIDE 0.9% 250 ML IV PRN (04:36)
[2019-05-19 05:01] LABS: Albumin Level 1.3 gm/dl (3.4-5.0); BUN Creatinine Ratio 9.8 (10-20); Bilirubin Direct 0.4 mg/dl (0-0.2); Calcium 6.6 mg/dl (8.5-10.1); Creatinine Clr Calc Pharmacy 71.6 ml/min; Est GFR (African American) 109.9; Est GFR (Non-African American) 94.8; Magnesium 1.9 mg/dl (1.8-2.4); Potassium 3.6 mmol/L (3.5-5.1)
[2019-05-19 05:05] LABS: Basophils # (auto) 0.02 K/uL (0-0.2); Basophils % (auto) 0.2 %; Eosinophils # (auto) 0.03 K/uL (0-0.5); Eosinophils % (auto) 0.3 %; Hematocrit (blood only) 24.6 % (37-47); Hemoglobin 8.4 g/dL (12.0-16.0); Immature Granulocytes # (auto) 0.03 K/uL (0.00-0.02); Immature Granulocytes % (auto) 0.3 %; Lymphocytes # (auto) 2.01 K/uL (1.2-3.4); Lymphocytes % (auto) 18.5 %; Mean Corpuscular Hemoglobin 34.9 pg (25-34); Mean Corpuscular Volume 102.1 fL (80-100); Mean Platelet Volume 9.7 fL (7.4-10.4); Monocytes # (auto) 0.89 K/uL (0.11-0.59); Monocytes % (auto) 8.2 %; Neutrophils # (auto) 7.86 K/uL (1.4-6.5); Neutrophils % (auto) 72.5 %; Platelet Count 177 K/uL (130-400); RDW Coefficient of Variation 16.1 % (11.5-14.5); RDW Standard Deviation 58.8 fL (36.4-46.3); Red Blood Count 2.41 M/uL (4.2-5.4); White Blood Count 10.84 K/uL (4.8-10.8)
[2019-05-19 05:06] LABS: Bilirubin,Total 0.5 mg/dl (0.2-1); Phosphorus 3.4 mg/dl (2.5-4.9); Total Protein 4.4 gm/dl (6.4-8.2)
[2019-05-19 05:07] LABS: Mean Corpuscular Hgb Conc 34.1 g/dL (32-36)
[2019-05-19] MEDS: DIPHENOXYLATE/ATROPINE 2.5/0.025MG TAB PO PRN (05:29)
[2019-05-19 05:34] LABS: INR 1.4 (0.9-1.1); Partial Thromboplastin Ratio 1.7; Prothrombin Time 13.6 Seconds (9.0-12.0)
[2019-05-19 05:49] LABS: Partial Thromboplastin Time 47.3 Seconds (21.0-31.0)
[2019-05-19] MEDS: ALBUTEROL HFA 8 GM INHALER INH SCH ×4 (08:02→21:23)
[2019-05-19] MEDS: FLINTSTONES COMPLETE CHEWABLE TAB PO SCH ×2 (08:02→21:23)
[2019-05-19] MEDS: CALCIUM CITRATE 950 MG TAB PO SCH ×2 (08:02→21:21)
[2019-05-19] MEDS: VENLAFAXINE HCL 37.5 MG TAB PO SCH ×2 (08:02→21:23)
[2019-05-19] MEDS: CHOLECALCIFEROL 1,000 UNITS TAB PO SCH ×2 (08:03→21:21)
[2019-05-19] MEDS: FAMOTIDINE 20 MG in SYRINGE 3 ML IV SCH ×2 (08:07→21:25)
[2019-05-19] MEDS: THIAMINE HCL 500 MG in 0.9 % SODIUM CHLORIDE 100 ML IV SCH ×3 (08:08→21:26)
[2019-05-19] MEDS: THIAMINE HCL 100 MG TAB PO SCH (08:10)
[2019-05-19] MEDS: ALBUMIN 25% 50 ML IV SCH ×2 (10:50→11:26)
--- NOTE | 2019-05-19 19:11 | Hospitalist Progress Note ---
Date of Service May 19, 2019 Assessment & Plan (1) Pulmonary embolism: (2) Acute cor pulmonale: Acute shortness of breath for the last 2 or 3 days with bilateral calf pain for some time CTA noted to have extensive bilateral pulmonary embolism without any embolism in the main branch Received TPA and has been on intravenous heparin Saturating well on room air Clinically much better ECHO showed Echo show left ventricle is normal in size and Left ventricular systolic function is normal with ejection fraction 60 to 65% no wall motion abnormality and flattened septum is consistent with RV pressure overload (3) Acute hypoxemic respiratory failure: Secondary to acute extensive bilateral pulmonary embolism Noted to have high lactate but sepsis has been ruled out Received 1 dose of Levaquin and Zosyn in the emergency room No leukocytosis Flu has been negative Urine tox screen negative Antibiotics have been discontinued (4) Hypotension: Likely secondary to CHF Continue to require pressor (5) Cellulitis of right lower extremity without foot: Continue daily wound care (6) Congestive heart failure, unspecified: As above No diuretics now due to very low blood pressure (7) Gastric bypass status for obesity: No acute symptoms Continue PPI (8) Depression: Has been getting antidepressants No acute delirium DVT prophylaxis On intravenous heparin CODE STATUS FULL CODE Subjective Pt was seen and examined Lying in bed with fiance at bedside Pt said that she feels tired Fiance said that she did not eat today Denies any chest pain, palpitation and SOB Physical Exam Physical Exam: General- No acute distress Head- atraumatic Eyes- PERRL, EOMI, ENT- oropharynx clear Neck- supple, no JVD Lungs- clear to auscultation Heart- regular rhythm; no murmur Abdomen- normal bowel sounds, soft, nontender Extremities- no calf tenderness Neuro- alert, oriented x 3; PERRL, EOMI; no facial palsy; no dysarthria Skin- warm & dry Results & Data Vital Signs (Past 12 Hours) Vital Signs Temp Pulse Resp BP Pulse Ox 05/19/19 18:00 90 20 100 05/19/19 17:41 95 H 20 105/65 98 05/19/19 17:00 103 H 18 100 05/19/19 16:41 93 H 23 95/67 L 05/19/19 16:00 36.2 C L 18 100 05/19/19 15:41 91 H 12 95/62 L 100 01/15/20 15:00 21 100 05/19/19 14:41 90 17 91/61 L 95 05/19/19 14:00 95 H 24 98 05/19/19 13:41 92 H 22 83/58 L 05/19/19 13:00 84 18 95 05/19/19 12:41 87 17 87/58 L 94 05/19/19 12:00 89 18 93 05/19/19 11:41 23 92/59 L 95 05/19/19 11:00 96 H 20 95 05/19/19 10:41 98 H 21 91/54 L 93 05/19/19 10:30 96 H 21 93 05/19/19 10:00 98 H 20 97 05/19/19 09:41 96 H 21 84/51 L 99 05/19/19 09:30 98 H 23 97 05/19/19 09:00 111 H 28 H 95 05/19/19 08:41 110 H 26 H 96/59 L 100 05/19/19 08:30 111 H 20 97 05/19/19 08:00 36.5 C 111 H 25 H 97 05/19/19 07:41 111 H 26 H 111/60 05/19/19 07:30 16 93 (1) Pulmonary embolism Acute cor pulmonale presence: unspecified Chronicity: unspecified Pulmonary embolism type: unspecified Qualified Code(s): I26.99 - Other pulmonary embolism without acute cor pulmonale (2) Hypotension Hypotension type: unspecified hypotension type Qualified Code(s): I95.9 - Hypotension, unspecified
--- NOTE | 2019-05-19 20:23 | Critical Care Progress Note ---
Date of Service May 19, 2019 Assessment & Plan (1) Polypharmacy: (2) Acute cor pulmonale: Reason Critically Ill: Acute cor pulmonale requiring vasoactive medication administration PLAN: Resp: Acute hypoxic respiratory failure Submassive pulmonary embolism Probable pulmonary infarct seen on imaging CV: Hypotension Acute cor pulmonale -No significant improvement with diuretics overnight -Continue to required use of vasoactive medication Tachycardia -Consideration given to wet beriberi -Continued aggressive thiamine replenishment -Given history of gastric bypass we will continue with 500 mg IV thiamine 3 times daily for 3 days Fluids/Renal: Lactic acidosis: Resolved ID: Holding anti-infectives at this time -Blood cultures remain negative GI/Nutrition: I am concerned for severe malnutrition including protein calorie malnutrition -Significant loss of subcutaneous fat and generalized edema -Patient reports significant weakness with activities of daily living -Likely benefit from inpatient rehab Heme: Appears to have baseline anemia -Type and cross for 2 units Status post TPA administration in the emergency department - continue heparin infusion DVT prophylaxis: Heparin infusion Endocrine: ICU hyperglycemia protocol Vascular access: Emergent right internal jugular CVC, discontinue right arterial catheter Code Status: Full code PT OT consultation tomorrow: Suspect subacute rehab for final disposition Patient to remain in ICU given vasoactive medication needs (3) Acute hypoxemic respiratory failure: (4) Intravenous infiltration: (5) Gastric bypass status for obesity: (6) Chronic obstructive pulmonary disease: (7) Chronic kidney disease, stage 3: Subjective Continues to feel improved, mild shortness of breath, no feliz chest pain, desires to go [facility]hab if possible Physical Exam Physical Exam: General: Alert. nontoxic. Skin: Warm, dry, Head: Atraumatic, loss of subcutaneous fat surrounding the eyes rather sunken appearance Ears, nose, mouth and throat: airway patent Cardiovascular: Normal peripheral perfusion Respiratory: no respiratory distress, no accessory muscle use Gastrointestinal: Non distended Musculoskeletal: No deformity, significant muscle wasting in the lumbricals of the fingers, 1+ pitting edema of the lower extremities Results & Data Vital Signs (Past 12 Hours) Vital Signs Temp Pulse Resp BP Pulse Ox 05/19/19 19:32 114 H 20 92/54 L 84 L 05/19/19 19:30 111 H 35 H 83 L 05/19/19 19:00 95 H 19 96 05/19/19 18:41 94 H 23 92/54 L 96 05/19/19 18:30 97 H 31 H 80 L 05/19/19 18:00 90 20 100 05/19/19 17:41 95 H 20 105/65 98 05/19/19 17:00 103 H 18 100 05/19/19 16:41 93 H 23 95/67 L 05/19/19 16:00 36.2 C L 18 100 05/19/19 15:41 91 H 12 95/62 L 100 05/19/19 15:00 21 100 05/19/19 14:41 90 17 91/61 L 95 05/19/19 14:00 95 H 24 98 05/19/19 13:41 92 H 22 83/58 L 05/19/19 13:00 84 18 95 05/19/19 12:41 87 17 87/58 L 94 05/19/19 12:00 89 18 93 05/19/19 11:41 23 92/59 L 95 05/19/19 11:00 96 H 20 95 05/19/19 10:41 98 H 21 91/54 L 93 05/19/19 10:30 96 H 21 93 05/19/19 10:00 98 H 20 97 05/19/19 09:41 96 H 21 84/51 L 99 05/19/19 09:30 98 H 23 97 05/19/19 09:00 111 H 28 H 95 05/19/19 08:41 110 H 26 H 96/59 L 100 05/19/19 08:30 111 H 20 97 Coding Level of Care Code Critical Care 1st 30-74 mins Diagnoses Polypharmacy Z79.899 Acute cor pulmonale I26.09 Acute hypoxemic respiratory failure J96.01 Intravenous infiltration T80.1XXA Encounter type: initial encounter Gastric bypass status for obesity Z98.84 Chronic obstructive pulmonary disease J44.9 COPD type: unspecified COPD Chronic kidney disease, stage 3 N18.3 Time Spent (min) 45 Comment I have personally spent 45 minutes of critical care time in the direct management of this patient. This is a life/limb threatening event. This includes time spent evaluating patient, direct bedside care, chart review, placing orders, interpretation of diagnostic studies, discussion with consultants, patient, and/or family members regarding treatment decisions, as well as other required patient management activities. This time is exclusive of all separately billable procedures, and teaching time and separate from and in addition to any other critical care service time. (1) Intravenous infiltration Encounter type: initial encounter Qualified Code(s): T80.1XXA - Vascular complications following infusion, transfusion and therapeutic injection, initial encounter (2) Chronic obstructive pulmonary disease COPD type: unspecified COPD Qualified Code(s): J44.9 - Chronic obstructive pulmonary disease, unspecified
[2019-05-19] MEDS: MIDODRINE HCL 2.5 MG TAB PO SCH (21:20)
[2019-05-19] MEDS: MIRTAZAPINE TAB 15 MG TAB PO SCH (21:22)
[2019-05-19] MEDS: Heparin Adult STANDARD Wt-Based Dextrose 5% 25,000 units/500 mL IV SCH (22:40)
[2019-05-20 05:24] LABS: Basophils # (auto) 0.02 K/uL (0-0.2); Basophils % (auto) 0.3 %; Eosinophils # (auto) 0.08 K/uL (0-0.5); Eosinophils % (auto) 1.3 %; Hematocrit (blood only) 23.6 % (37-47); Hemoglobin 8.1 g/dL (12.0-16.0); Immature Granulocytes # (auto) 0.03 K/uL (0.00-0.02); Immature Granulocytes % (auto) 0.5 %; Lymphocytes # (auto) 1.39 K/uL (1.2-3.4); Lymphocytes % (auto) 21.8 %; Mean Corpuscular Hemoglobin 35.4 pg (25-34); Mean Corpuscular Hgb Conc 34.3 g/dL (32-36); Mean Corpuscular Volume 103.1 fL (80-100); Mean Platelet Volume 9.9 fL (7.4-10.4); Monocytes # (auto) 0.43 K/uL (0.11-0.59); Monocytes % (auto) 6.7 %; Neutrophils # (auto) 4.43 K/uL (1.4-6.5); Neutrophils % (auto) 69.4 %; Platelet Count 194 K/uL (130-400); RDW Coefficient of Variation 16.7 % (11.5-14.5); RDW Standard Deviation 62.6 fL (36.4-46.3); Red Blood Count 2.29 M/uL (4.2-5.4); White Blood Count 6.38 K/uL (4.8-10.8)
[2019-05-20 05:43] LABS: Partial Thromboplastin Ratio 2.4
[2019-05-20 05:58] LABS: BUN Creatinine Ratio 8.6 (10-20); Calcium 6.1 mg/dl (8.5-10.1); Creatinine Clr Calc Pharmacy 116.5 ml/min; Est GFR (Non-African American) 111.3; Phosphorus 2.3 mg/dl (2.5-4.9)
[2019-05-20 06:03] LABS: Partial Thromboplastin Time 65.1 Seconds (21.0-31.0)
[2019-05-20] MEDS ORDERED: DEXTROSE 50% 50 ML SYRINGE IV ONE (06:11)
[2019-05-20] MEDS ORDERED: GLUCAGON FOR INJ 1 MG VIAL SQ PRN (06:12)
[2019-05-20] MEDS ORDERED: GLUCOSE 40% GEL 15 GM TUBE PO PRN (06:12)
[2019-05-20] MEDS ORDERED: GLUCOSE 10 TABS/TUBE PO PRN (06:12)
[2019-05-20] MEDS ORDERED: DEXTROSE 50% 50 ML SYRINGE IV PRN (06:12)
[2019-05-20] MEDS ORDERED: CARBOHYDRATES FOR HYPOGLYCEMIA PO PRN (06:12)
--- NOTE | 2019-05-20 07:06 | XRay Report ---
XR chest 1V portable CLINICAL HISTORY: Abnormal chest x-ray. Follow-up study. COMPARISON STUDY: 05/17/2019 FINDINGS: The cardiac and mediastinal contours remain stable. The patient is rotated. There is a righ t internal jugular central venous catheter unchanged in position. There is blunting of both lateral c ostophrenic angle suggesting trace effusions. Mild pulmonary vascular congestion is suspected. There is interval development of left subtle left basilar opacities[. These could be atelectatic, infectiou s/inflammatory, or related to mild edema. IMPRESSION: 1. Radiographic evidence of mild pulmonary vascular congestion with trace pleural effusions 2. Interval development of minor nonspecific left basilar airspace opacities ACT 112: Negative or not required by law. Electronically signed by: Zachery Castro M.D. 05/20/2019 7:05 AM
[2019-05-20] MEDS: NOREPINEPHRINE BIT INJ 8 MG in DEXTROSE 5% 500 ML IV SCH (07:25)
[2019-05-20] MEDS: MIDODRINE HCL 2.5 MG TAB PO SCH ×3 (07:29→16:11)
[2019-05-20] MEDS: VENLAFAXINE HCL 37.5 MG TAB PO SCH ×2 (07:29→20:23)
[2019-05-20] MEDS: CALCIUM CITRATE 950 MG TAB PO SCH ×2 (07:29→20:24)
[2019-05-20] MEDS: CHOLECALCIFEROL 1,000 UNITS TAB PO SCH ×2 (07:30→20:24)
[2019-05-20] MEDS: FLINTSTONES COMPLETE CHEWABLE TAB PO SCH ×2 (07:30→20:23)
[2019-05-20] MEDS: MEGESTROL ACETATE SUSP 400 MG/10 ML UDC PO SCH (07:30)
[2019-05-20] MEDS: ALBUTEROL HFA 8 GM INHALER INH SCH ×4 (07:30→20:35)
[2019-05-20] MEDS: FAMOTIDINE 20 MG in SYRINGE 3 ML IV SCH ×2 (07:32→20:40)
[2019-05-20] MEDS: THIAMINE HCL 500 MG in 0.9 % SODIUM CHLORIDE 100 ML IV SCH ×3 (07:32→20:40)
[2019-05-20 07:34] LABS: Potassium 3.5 mmol/L (3.5-5.1)
[2019-05-20 07:35] LABS: Magnesium 2.1 mg/dl (1.8-2.4)
[2019-05-20] MEDS ORDERED: POTASSIUM PHOS 3 MMOL/1 ML INFUSION IV STA (10:10)
[2019-05-20] MEDS ORDERED: POTASSIUM PHOSPHATE 21 MMOL in SODIUM CHLORIDE 0.9% 500 ML IV ONE (10:30)
[2019-05-20] MEDS ORDERED: ZINC SULFATE 220 MG CAPSULE PO ONE (10:45)
[2019-05-20] MEDS ORDERED: FERROUS SULFATE 325 MG TAB PO ONE (10:45)
[2019-05-20] MEDS ORDERED: ASCORBIC ACID 500 MG TAB PO ONE (10:45)
[2019-05-20] MEDS ORDERED: CYANOCOBALAMIN 1000 MCG/ML VIAL IM STA (11:34)
[2019-05-20] MEDS: DIPHENOXYLATE/ATROPINE 2.5/0.025MG TAB PO PRN (16:10)
--- NOTE | 2019-05-20 19:53 | Hospitalist Progress Note ---
Date of Service May 20, 2019 Assessment & Plan (1) Pulmonary embolism: (2) Acute cor pulmonale: Acute shortness of breath for the last 2 or 3 days with bilateral calf pain for some time CTA noted to have extensive bilateral pulmonary embolism without any embolism in the main branch Received TPA and has been on intravenous heparin Saturating well on room air Clinically much better Continue heparin drip Will consider to start on oral anticoagulant ECHO showed Echo show left ventricle is normal in size and Left ventricular systolic function is normal with ejection fraction 60 to 65% No wall motion abnormality and flattened septum is consistent with RV pressure overload (3) Acute hypoxemic respiratory failure: Secondary to acute extensive bilateral pulmonary embolism Noted to have high lactate but sepsis has been ruled out Received 1 dose of Levaquin and Zosyn in the emergency room No leukocytosis Flu has been negative Urine tox screen negative Antibiotics have been discontinued (4) Hypotension: Likely secondary to CHF She is off pressor currently BP stable Will continue monitor (5) Cellulitis of right lower extremity without foot: Continue daily wound care (6) Congestive heart failure, unspecified: As above No diuretics now due to very low blood pressure (7) Gastric bypass status for obesity: No acute symptoms Continue PPI (8) Depression: Has been getting antidepressants No acute delirium DVT prophylaxis On intravenous heparin CODE STATUS FULL CODE Subjective Pt was seen and examined Lying in bed with no distress Pt said that she feels much better today Denies any chest pain, palpitation and SOB Physical Exam Physical Exam: General- No acute distress Head- atraumatic Eyes- PERRL, EOMI, ENT- oropharynx clear Neck- supple, no JVD Lungs- clear to auscultation Heart- regular rhythm; no murmur Abdomen- normal bowel sounds, soft, nontender Extremities- no calf tenderness Neuro- alert, oriented x 3; PERRL, EOMI; no facial palsy; no dysarthria Skin- warm & dry Results & Data Vital Signs (Past 12 Hours) Vital Signs Temp Pulse Resp BP Pulse Ox Pulse Ox 05/20/19 18:42 72 14 111/73 100 05/20/19 18:10 82 10 L 87/53 L 05/20/19 18:08 79 17 63/48 L 100 05/20/19 18:00 81 25 H 100 05/20/19 17:52 18 81/53 L 100 05/20/19 17:41 77 23 75/49 L 100 05/20/19 17:07 77 22 87/53 L 05/20/19 17:00 85 21 05/20/19 16:00 88 16 05/20/19 15:41 83 19 86/63 L 99 05/20/19 15:00 96 H 14 05/20/19 14:42 85 14 101/68 100 05/20/19 14:00 83 33 H 96 05/20/19 13:41 24 96/64 L 05/20/19 13:00 82 19 100 05/20/19 12:42 85 22 116/75 100 05/20/19 12:00 94 H 17 100 05/20/19 11:43 22 80/64 L 100 05/20/19 11:31 95 05/20/19 11:00 85 17 100 05/20/19 10:41 81 21 108/74 99 05/20/19 10:00 78 19 100 05/20/19 09:41 71 18 117/71 100 05/20/19 09:00 86 17 95 05/20/19 08:43 92 H 19 100 05/20/19 08:42 96 H 20 104/64 100 05/20/19 08:07 92 H 17 103/62 96 05/20/19 08:00 37.1 C 94 H 22 100 (1) Pulmonary embolism Acute cor pulmonale presence: unspecified Chronicity: unspecified Pulmonary embolism type: unspecified Qualified Code(s): I26.99 - Other pulmonary embolism without acute cor pulmonale (2) Hypotension Hypotension type: unspecified hypotension type Qualified Code(s): I95.9 - H ypotension, unspecified
[2019-05-20] MEDS: MIRTAZAPINE TAB 15 MG TAB PO SCH (20:24)
[2019-05-21] MEDS: Heparin Adult STANDARD Wt-Based Dextrose 5% 25,000 units/500 mL IV SCH (00:06)
[2019-05-21] MEDS: NOREPINEPHRINE BIT INJ 8 MG in DEXTROSE 5% 500 ML IV SCH (03:33)
[2019-05-21 05:33] LABS: Basophils # (auto) 0.02 K/uL (0-0.2); Basophils % (auto) 0.3 %; Eosinophils # (auto) 0.09 K/uL (0-0.5); Eosinophils % (auto) 1.2 %; Hematocrit (blood only) 25.7 % (37-47); Hemoglobin 8.7 g/dL (12.0-16.0); Immature Granulocytes # (auto) 0.01 K/uL (0.00-0.02); Immature Granulocytes % (auto) 0.1 %; Lymphocytes # (auto) 1.38 K/uL (1.2-3.4); Lymphocytes % (auto) 17.9 %; Mean Corpuscular Hemoglobin 35.1 pg (25-34); Mean Corpuscular Hgb Conc 33.9 g/dL (32-36); Mean Corpuscular Volume 103.6 fL (80-100); Mean Platelet Volume 9.5 fL (7.4-10.4); Monocytes # (auto) 0.71 K/uL (0.11-0.59); Monocytes % (auto) 9.2 %; Neutrophils # (auto) 5.51 K/uL (1.4-6.5); Neutrophils % (auto) 71.3 %; Platelet Count 239 K/uL (130-400); RDW Coefficient of Variation 16.5 % (11.5-14.5); RDW Standard Deviation 61.4 fL (36.4-46.3); Red Blood Count 2.48 M/uL (4.2-5.4); White Blood Count 7.72 K/uL (4.8-10.8)
[2019-05-21 05:59] LABS: BUN Creatinine Ratio 6.9 (10-20); Calcium 7.5 mg/dl (8.5-10.1); Creatinine Clr Calc Pharmacy 73.7 ml/min; Est GFR (Non-African American) 95.7; Magnesium 1.9 mg/dl (1.8-2.4); Phosphorus 3.3 mg/dl (2.5-4.9); Potassium 3.5 mmol/L (3.5-5.1)
[2019-05-21] MEDS: MIDODRINE HCL 2.5 MG TAB PO SCH ×3 (08:44→17:26)
[2019-05-21] MEDS: FERROUS SULFATE 325 MG/7.4 ML UDP PO SCH (08:44)
[2019-05-21] MEDS: CHOLECALCIFEROL 1,000 UNITS TAB PO SCH ×2 (08:44→20:54)
[2019-05-21] MEDS: FLINTSTONES COMPLETE CHEWABLE TAB PO SCH ×2 (08:44→20:51)
[2019-05-21] MEDS: CALCIUM CITRATE 950 MG TAB PO SCH ×2 (08:44→20:52)
[2019-05-21] MEDS: ZINC SULFATE 220 MG CAPSULE PO SCH (08:44)
[2019-05-21] MEDS: THIAMINE HCL 500 MG in 0.9 % SODIUM CHLORIDE 100 ML IV SCH ×2 (08:44→13:36)
[2019-05-21] MEDS: MEGESTROL ACETATE SUSP 400 MG/10 ML UDC PO SCH (08:45)
[2019-05-21] MEDS: ASCORBIC ACID 500 MG TAB PO SCH (08:45)
[2019-05-21] MEDS: VENLAFAXINE HCL 37.5 MG TAB PO SCH ×2 (08:45→20:52)
[2019-05-21] MEDS: FAMOTIDINE 20 MG in SYRINGE 3 ML IV SCH ×2 (08:45→20:57)
[2019-05-21] MEDS: ALBUTEROL HFA 8 GM INHALER INH SCH ×4 (08:46→20:55)
[2019-05-21] MEDS ORDERED: FERROUS SULFATE 325 MG TAB PO SCH (09:00)
--- NOTE | 2019-05-21 15:10 | Internal Medicine Consult Note ---
Date of Consultation May 21, 2019 Assessment & Plan (1) Encounter for rehabilitation evaluation: She appears to be recovering from the PE. lobsterman anticoagulation is required for now. Suspect this was all fueled by her malnutrition. This will be an ongoing challenge. Her psychiatric condition will also complicate her recovery path. The post acute care setting of the rehab hospital can provide a more robust support system, which will include more access to ongoing medical oversight, laboratory services, PT/OT and respiratory therapy. A principal technical architect and a psychologist on site will also help bolster chances for a more satisfactory return to better health. Ultimately she will require subspecialty assistance regarding her complex GI concerns status post gastric bypass. History of Present Illness Reason for Consultation: High Risk Evaluation for Rehab Hospital Admission Attending Physician: Zulay Oliveros MD History of Present Illness Ms. Carty suffered a PE with cor pulmonale. She was given tPA and has required ICU care. Underlying severe malnutrition in the setting of gastric bypass has fueled her medical condition. Underlying psychiatric disease also further complicates her condition. She suffers from COPD and CKD as well. I spoke with her and her friend today. She is anxious to improve and return home. Prior to this hospitalization, her caloric intake has been a major challenge. Allergies Allergy/AdvReac Type Severity Reaction Status Date / Time codeine Allergy Intermediate Diarrhea/Ra Verified 05/17/19 19:03 sh duloxetine Allergy Intermediate Crawling Verified 05/17/19 19:03 out of her skin sensation NSAIDS (Non-Steroidal Allergy Unknown None Verified 05/17/19 19:04 Anti-Inflamma Bactrim AdvReac Intermediate DELIRIUM Verified 12/28/17 19:46 clonazepam AdvReac Intermediate Syncope Verified 05/13/19 14:45 hydrocodone AdvReac Intermediate Over Verified 05/10/19 14:47 sedated hydromorphone AdvReac Intermediate Weakness Verified 05/17/19 19:05 and sweating sulfamethoxazole AdvReac Intermediate DELIRIUM Verified 05/10/19 14:47 trimethoprim AdvReac Intermediate DELIRIUM Verified 05/10/19 14:47 aspirin AdvReac Mild STOMACH Verified 05/17/19 19:04 IRRITATION cephalexin AdvReac Mild GI SYMPTOMS Verified 05/17/19 19:05 Home Medications Home Medications Medication Instructions Recorded Confirmed Type albuterol sulfate [Ventolin HFA] 2 puff INHALATION QID 01/04/18 05/17/19 History gabapentin 100 mg PO TID 01/04/18 05/17/19 History omeprazole 20 mg PO BID 01/04/18 05/17/19 History cyanocobalamin (vitamin B-12) 1,000 mcg IM MONTHLY 03/24/18 05/17/19 History potassium chloride 20 meq PO QAM 09/23/18 05/17/19 History cholecalciferol (vitamin D3) 2,000 unit PO BID 11/20/18 05/17/19 History [Vitamin D3] nystatin 1 applic TOPICAL TID PRN 11/20/18 05/17/19 History ondansetron HCl 4 mg PO Q8H PRN 11/20/18 05/17/19 History thiamine HCl (vitamin B1) 100 mg PO BID 11/20/18 05/17/19 History Ensure 1 ea PO DAILY 11/24/18 05/17/19 History buspirone 10 mg PO HS 04/26/19 05/17/19 History mirtazapine 45 mg PO HS 04/26/19 05/17/19 History venlafaxine 75 mg PO BID 04/26/19 05/17/19 History pediatric multivitamin no.76 1 tab PO BID tab 04/30/19 05/17/19 History calcium citrate 200 mg PO BID 05/17/19 05/17/19 History magnesium 100 mg PO DAILY 05/17/19 05/17/19 History vitamin A 10,000 unit PO DAILY 05/17/19 05/17/19 History Patient History Medical History Anxiety (Chronic) Cardiac murmur (Chronic) faint CHF (congestive heart failure) (Chronic) hx of Chronic back pain (Chronic) Chronic kidney disease, stage 3 (Chronic) no portable trackman at the moment Chronic obstructive pulmonary disease (Chronic) inhaler prn Congestive heart failure, unspecified (Chronic 08/09/12) "echo 03/25/13-grade 1 diastolic dysfunction with mild concentric LVH" Degenerative disc disease (Chronic) Dyslipidemia (Chronic) Dysphagia (Chronic) Elevated liver enzymes (Chronic) per pt currently elevated Fatty liver (Chronic) Fibromyalgia (Chronic) GERD (gastroesophageal reflux disease) (Chronic) Hematoma of right lower extremity (Resolved) History of gastric ulcer (Chronic) Marijuana abuse (Resolved) Opiate abuse, continuous (Resolved) Organic sleep disorder (Chronic) Osteoarthritis (Chronic) Osteoarthritis (Chronic) Peripheral arterial disease (Chronic) Spinal stenosis (Chronic) Traumatic open wound of left lower leg (Acute) Traumatic open wound of right lower leg (Acute) Traumatic wound (Resolved) Venous stasis ulcer (Resolved) Surgical History Gastric bypass status for obesity (Chronic) H/O arthroscopic knee surgery (Chronic) "R knee; 1998" History of arthroscopy of right knee (Chronic) History of cholecystectomy (Chronic) History of colonoscopy (Chronic) History of esophagogastroduodenoscopy (EGD) (Chronic) History of repair of hiatal hernia (Chronic) History of tooth extraction (Chronic) History of wisdom tooth extraction (Chronic) Hx of appendectomy (Chronic) Hx of gastric bypass (Chronic) Hx of repair of right rotator cuff (Chronic) S/P bronchoscopy (Chronic) Status post repair of paraesophageal diaphragmatic hernia (Chronic) "Dr. Shay [facility] [place] 01/20/17" Family History Other Family history not known due to adoption Social History Preferred Language: [place]i Communication Ability: Effective Visual Impairment: No Limitations Hearing Ability: Normal Fur Plucker Required: No Beliefs That Will Affect Care: None marital status: Current Living Situation: Family Current Living Situation Comment: lives with fiance current occupational status: unemployed Feels Safe at Home: Yes Safety Concerns: Feels Safe At This Time Smoking Status: Current every day smoker Tobacco Type: cigarettes ; Cigarettes Per Day: 1ppd ; Second Hand Exposure: Yes (father smokes) ; Tobacco Cessation Education Requested by Patient: No Hx Alcohol Use: No Hx Substance Use: No during the past year weight has: other Review of Systems Review of Systems: No new ROS concerns Physical Exam Physical Exam: Appears very frail and malnourished Vitals--reviewed HEENT--temporal wasting and hair loss noted Respiratory--not labored at this point Cardio--perfusion is ok GI--wasted Musculo--diffuse muscle wasting Neuro--no focal changes Psych--affect is off--conversational but with poor insight Derm--edema Results & Data Vital Signs (Past 12 Hours) Vital Signs Pulse Resp BP Pulse Ox 05/21/19 06:00 78 23 100 05/21/19 05:49 73 21 100/66 100 05/21/19 05:00 81 16 100 05/21/19 04:43 92 H 22 95/62 L 100 05/21/19 04:30 83 17 100 05/21/19 04:00 95 H 22 100 05/21/19 03:43 90 24 100 05/21/19 03:42 95 H 23 98/66 L 100 05/21/19 03:30 83 18 100 05/21/19 03:00 72 31 H 99
[2019-05-21] MEDS ORDERED: WARFARIN SOD 5 MG TAB PO ONE (16:00)
[2019-05-21] MEDS: GABAPENTIN 100 MG CAP PO SCH ×2 (17:26→20:53)
--- NOTE | 2019-05-21 19:44 | Hospitalist Progress Note ---
Date of Service May 21, 2019 Assessment & Plan (1) Pulmonary embolism: (2) Acute cor pulmonale: Acute shortness of breath for the last 2 or 3 days with bilateral calf pain for some time CTA noted to have extensive bilateral pulmonary embolism without any embolism in the main branch Received TPA and has been on intravenous heparin Saturating well on room air Clinically much better Continue heparin drip Starting on coumadin today Monitor BMP ECHO showed Echo show left ventricle is normal in size and Left ventricular systolic function is normal with ejection fraction 60 to 65% No wall motion abnormality and flattened septum is consistent with RV pressure overload (3) Acute hypoxemic respiratory failure: Secondary to acute extensive bilateral pulmonary embolism Noted to have high lactate but sepsis has been ruled out Received 1 dose of Levaquin and Zosyn in the emergency room No leukocytosis Flu has been negative Urine tox screen negative Antibiotics have been discontinued (4) Hypotension: Likely secondary to CHF Pressor has been on and off BP stable Will continue monitor (5) Cellulitis of right lower extremity without foot: Continue daily wound care (6) Congestive heart failure, unspecified: As above No diuretics now due to very low blood pressure (7) Gastric bypass status for obesity: No acute symptoms Continue PPI (8) Depression: Has been getting antidepressants No acute delirium DVT prophylaxis On intravenous heparin CODE STATUS FULL CODE Disposition Continue monitor in ICU Subjective Pt was seen and examined Lying in bed with no distress Pt said that her strength improves Denies any chest pain, palpitation and SOB Physical Exam Physical Exam: General- No acute distress Head- atraumatic Eyes- PERRL, EOMI, ENT- oropharynx clear Neck- supple, no JVD Lungs- clear to auscultation Heart- regular rhythm; no murmur Abdomen- normal bowel sounds, soft, nontender Extremities- no calf tenderness, +edema Neuro- alert, oriented x 3; PERRL, EOMI; no facial palsy; no dysarthria Skin- warm & dry (1) Pulmonary embolism Acute cor pulmonale presence: unspecified Chronicity: unspecified Pulmonary embolism type: unspecified Qualified Code(s): I26.99 - Other pulmonary embolism without acute cor pulmonale (2) Hypotension Hypotension type: unspecified hypotension type Qualified Code(s): I95.9 - H ypotension, unspecified
[2019-05-21] MEDS: MIRTAZAPINE TAB 15 MG TAB PO SCH (20:51)
[2019-05-21] MEDS: THIAMINE HCL 100 MG TAB PO SCH (21:00)
[2019-05-22] MEDS: Heparin Adult STANDARD Wt-Based Dextrose 5% 25,000 units/500 mL IV SCH (02:51)
[2019-05-22 05:02] LABS: Basophils # (auto) 0.02 K/uL (0-0.2); Basophils % (auto) 0.3 %; Eosinophils # (auto) 0.09 K/uL (0-0.5); Eosinophils % (auto) 1.5 %; Hemoglobin 8.2 g/dL (12.0-16.0); Immature Granulocytes # (auto) 0.01 K/uL (0.00-0.02); Immature Granulocytes % (auto) 0.2 %; Lymphocytes # (auto) 1.29 K/uL (1.2-3.4); Lymphocytes % (auto) 21.1 %; Mean Corpuscular Hemoglobin 34.9 pg (25-34); Mean Corpuscular Hgb Conc 34.2 g/dL (32-36); Mean Corpuscular Volume 102.1 fL (80-100); Mean Platelet Volume 9.5 fL (7.4-10.4); Monocytes # (auto) 0.58 K/uL (0.11-0.59); Monocytes % (auto) 9.5 %; Neutrophils # (auto) 4.12 K/uL (1.4-6.5); Neutrophils % (auto) 67.4 %; Platelet Count 210 K/uL (130-400); RDW Coefficient of Variation 16.6 % (11.5-14.5); RDW Standard Deviation 61.3 fL (36.4-46.3); Red Blood Count 2.35 M/uL (4.2-5.4); White Blood Count 6.11 K/uL (4.8-10.8)
[2019-05-22 05:26] LABS: Calcium 7.6 mg/dl (8.5-10.1); Creatinine Clr Calc Pharmacy 63.4 ml/min; Est GFR (Non-African American) 81.9; Magnesium 1.9 mg/dl (1.8-2.4); Phosphorus 3.7 mg/dl (2.5-4.9); Potassium 3.7 mmol/L (3.5-5.1)
[2019-05-22 07:35] LABS: INR 1.5 (0.9-1.1); Partial Thromboplastin Ratio 2.1; Prothrombin Time 14.9 Seconds (9.0-12.0)
[2019-05-22 07:37] LABS: Partial Thromboplastin Time 56.6 Seconds (21.0-31.0)
[2019-05-22] MEDS: ZINC SULFATE 220 MG CAPSULE PO SCH (08:23)
[2019-05-22] MEDS: CALCIUM CITRATE 950 MG TAB PO SCH ×2 (08:23→20:20)
[2019-05-22] MEDS: VENLAFAXINE HCL 37.5 MG TAB PO SCH ×2 (08:23→20:19)
[2019-05-22] MEDS: THIAMINE HCL 100 MG TAB PO SCH ×2 (08:23→20:22)
[2019-05-22] MEDS: ASCORBIC ACID 500 MG TAB PO SCH (08:24)
[2019-05-22] MEDS: CHOLECALCIFEROL 1,000 UNITS TAB PO SCH ×2 (08:24→20:17)
[2019-05-22] MEDS: GABAPENTIN 100 MG CAP PO SCH ×3 (08:24→20:20)
[2019-05-22] MEDS: MIDODRINE HCL 2.5 MG TAB PO SCH ×2 (08:24→12:51)
[2019-05-22] MEDS: FERROUS SULFATE 325 MG/7.4 ML UDP PO SCH (08:25)
[2019-05-22] MEDS: MEGESTROL ACETATE SUSP 400 MG/10 ML UDC PO SCH (08:25)
[2019-05-22] MEDS: FLINTSTONES COMPLETE CHEWABLE TAB PO SCH ×2 (08:25→20:18)
[2019-05-22] MEDS: ALBUTEROL HFA 8 GM INHALER INH SCH ×4 (08:26→20:22)
[2019-05-22] MEDS: FAMOTIDINE 20 MG in SYRINGE 3 ML IV SCH (08:27)
[2019-05-22] MEDS: DIPHENOXYLATE/ATROPINE 2.5/0.025MG TAB PO PRN (13:21)
--- NOTE | 2019-05-22 16:20 | Critical Care Progress Note ---
Date of Service May 20, 2019 Assessment & Plan (1) Polypharmacy: (2) Acute cor pulmonale: Reason Critically Ill: Acute cor pulmonale requiring vasoactive medication administration PLAN: Resp: Acute hypoxic respiratory failure Submassive pulmonary embolism CV: Hypotension Acute cor pulmonale -No significant improvement with diuretics overnight -Continue to required use of vasoactive medication -Attempted to wean vasoactive's and check lactic acid for hypoperfusion given the increase we have continued the vasoactive medication Tachycardia: Improving -Consideration given to kimberly cruz -Continued aggressive thiamine replenishment -Given history of gastric bypass we will continue with 500 mg IV thiamine 3 times daily for 3 days Fluids/Renal: Lactic acidosis: Mild evidence of hypoperfusion with borderline blood pressures ID: Holding anti-infectives at this time -Blood cultures remain negative GI/Nutrition: Severe protein calorie malnutrition -Significant loss of subcutaneous fat and generalized edema -Patient reports significant weakness with activities of daily living -Likely benefit from inpatient rehab, consider anabolic steroids Heme: Appears to have baseline anemia -Type and cross for 2 units Status post TPA administration in the emergency department - continue heparin infusion DVT prophylaxis: Heparin infusion Will require long-term anticoagulation -Discussed with Dr. Major, warfarin remains best therapeutic option Endocrine: ICU hyperglycemia protocol Vascular access: Emergent right internal jugular CVC, discontinue right arterial catheter Code Status: Full code PT OT consultation tomorrow: Suspect subacute rehab for final disposition Patient to remain in ICU given vasoactive medication needs (3) Acute hypoxemic respiratory failure: (4) Intravenous infiltration: (5) Gastric bypass status for obesity: (6) Chronic obstructive pulmonary disease: (7) Chronic kidney disease, stage 3: Subjective Complaints largely around weakness. Shortness of breath mildly improved. Review of Systems Review of Systems: All systems reviewed & are unremarkable except as noted in HPI & below Physical Exam Physical Exam: General: Alert. nontoxic. Skin: Warm, dry, Head: Atraumatic, loss of subcutaneous fat surrounding the eyes rather sunken appearance Ears, nose, mouth and throat: airway patent Cardiovascular: Normal peripheral perfusion Respiratory: no respiratory distress, no accessory muscle use Gastrointestinal: Non distended Musculoskeletal: No deformity, significant muscle wasting in the lumbricals of the fingers, 1+ pitting edema of the lower extremities Results & Data Vital Signs (Past 12 Hours) Vital Signs Pulse Resp BP Pulse Ox 05/22/19 08:00 85 05/22/19 07:00 80 05/22/19 06:21 82 17 88/49 L 99 05/22/19 05:17 90 17 88/56 L 99 Coding Level of Care Code Critical Care 1st 30-74 mins Diagnoses Polypharmacy Z79.899 Acute cor pulmonale I26.09 Acute hypoxemic respiratory failure J96.01 Intravenous infiltration T80.1XXA Encounter type: initial encounter Gastric bypass status for obesity Z98.84 Chronic obstructive pulmonary disease J44.9 COPD type: unspecified COPD Chronic kidney disease, stage 3 N18.3 Time Spent (min) 40 Comment I have personally spent 40 minutes of critical care time in the direct management of this patient. This is a life/limb threatening event. This includes time spent evaluating patient, direct bedside care, chart review, placing orders, interpretation of diagnostic studies, discussion with consultants, patient, and/or family members regarding treatment decisions, as well as other required patient management activities. This time is exclusive of all separately billable procedures, and teaching time and separate from and in addition to any other critical care service time. (1) Intravenous infiltration Encounter type: initial encounter Qualified Code(s): T80.1XXA - Vascular complications following infusion, transfusion and therapeutic injection, initial encounter (2) Chronic obstructive pulmonary disease COPD type: unspecified COPD Qualified Code(s): J44.9 - Chronic obstructive pulmonary disease, unspecified
--- NOTE | 2019-05-22 16:20 | Critical Care Progress Note ---
Date of Service May 21, 2019 Assessment & Plan (1) Polypharmacy: (2) Acute cor pulmonale: Reason Critically Ill: Acute cor pulmonale requiring vasoactive medication administration PLAN: Resp: Acute hypoxic respiratory failure Submassive pulmonary embolism CV: Hypotension -Midodrine for additional alpha constriction Acute cor pulmonale -No significant improvement with diuretics overnight -Continue to required use of vasoactive medication -Attempted to wean vasoactive's and check lactic acid for hypoperfusion given the increase we have continued the vasoactive medication Tachycardia: Improved -Finishing 3 days thiamine replenishment Fluids/Renal: Lactic acidosis: Mildly elevated lactate again without vasoactive's -We will continue without the vasoactive's to evaluate if the patient is able to clear and if the appearance of hypoperfusion is worse ID: Holding anti-infectives at this time -Blood cultures remain negative GI/Nutrition: Severe protein calorie malnutrition -Significant loss of subcutaneous fat and generalized edema -Patient reports significant weakness with activities of daily living -Likely benefit from inpatient rehab Heme: Appears to have baseline anemia -Type and cross for 2 units Status post TPA administration in the emergency department - continue heparin infusion DVT prophylaxis: Heparin infusion Start Coumadin 5 mg Endocrine: ICU hyperglycemia protocol Vascular access: Emergent right internal jugular CVC, Code Status: Full code PT OT consultation tomorrow: Suspect subacute rehab for final disposition Patient to remain in ICU given vasoactive medication needs with evidence of lactic acidosis persisting (3) Acute hypoxemic respiratory failure: (4) Intravenous infiltration: (5) Gastric bypass status for obesity: (6) Chronic obstructive pulmonary disease: (7) Chronic kidney disease, stage 3: Subjective Feels approximately the same as yesterday. Review of Systems Review of Systems: No chest pain no shortness of breath Physical Exam Physical Exam: General: Alert. nontoxic. Skin: Warm, dry, Head: Atraumatic, loss of subcutaneous fat surrounding the eyes rather sunken appearance Ears, nose, mouth and throat: airway patent Neck: No JVD Cardiovascular: Normal peripheral perfusion Respiratory: no respiratory distress, no accessory muscle use Gastrointestinal: Non distended Musculoskeletal: No deformity, significant muscle wasting in the lumbricals of the fingers, 1+ pitting edema of the lower extremities Results & Data Vital Signs (Past 12 Hours) Vital Signs Pulse Resp BP Pulse Ox 05/22/19 08:00 85 05/22/19 07:00 80 05/22/19 06:21 82 17 88/49 L 99 05/22/19 05:17 90 17 88/56 L 99 Coding Level of Care Code Critical Care 1st 30-74 mins Diagnoses Polypharmacy Z79.899 Acute cor pulmonale I26.09 Acute hypoxemic respiratory failure J96.01 Intravenous infiltration T80.1XXA Encounter type: initial encounter Gastric bypass status for obesity Z98.84 Chronic obstructive pulmonary disease J44.9 COPD type: unspecified COPD Chronic kidney disease, stage 3 N18.3 Time Spent (min) 35 (1) Intravenous infiltration Encounter type: initial encounter Qualified Code(s): T80.1XXA - Vascular complications following infusion, transfusion and therapeutic injection, initial encounter (2) Chronic obstructive pulmonary disease COPD type: unspecified COPD Qualified Code(s): J44.9 - Chronic obstructive pulmonary disease, unspecified
--- NOTE | 2019-05-22 16:21 | Critical Care Progress Note ---
Date of Service May 22, 2019 Assessment & Plan (1) Polypharmacy: (2) Acute cor pulmonale: Reason Critically Ill: Acute cor pulmonale requiring vasoactive medication administration PLAN: Neuro: Polypharmacy -Added instruction to follow-up with primary care provider or prescri shannan of Effexor for appropriate dosing -Pharmacy contacted retail pharmacist she is receiving tablets and not capsules. Resp: Acute hypoxic respiratory failure Submassive pulmonary embolism -Tolerating room air CV: Hypotension -Midodrine increased today Acute cor pulmonale -Tolerated off Levophed Tachycardia: Improved -Finishing 3 days thiamine replenishment Fluids/Renal: Lactic acidosis: Resolved ID: Negative blood cultures GI/Nutrition: Severe protein calorie malnutrition: Encouraged high-quality protein intake -Significant loss of subcutaneous fat and generalized edema -Patient reports significant weakness with activities of daily living -Likely benefit from inpatient rehab Heme: Appears to have baseline anemia -Type and cross for 2 units Status post TPA administration in the emergency department -Discontinue heparin transition to Lovenox 1 mg/kg twice daily as bridge to therapeutic INR DVT prophylaxis: Lovenox treatment dosing Start Coumadin 3 mg Endocrine: ICU hyperglycemia protocol Vascular access: Discontinue right internal jugular CVC. Continue with peripheral IVs Code Status: Full code PT OT consultation Stable for downgrade out of ICU. (3) Acute hypoxemic respiratory failure: (4) Intravenous infiltration: (5) Gastric bypass status for obesity: (6) Chronic obstructive pulmonary disease: (7) Chronic kidney disease, stage 3: Subjective Tolerating diet, tolerating increasing activity by physical therapy. Review of Systems Review of Systems: All systems reviewed & are unremarkable except as noted in HPI & below Physical Exam Physical Exam: General: Alert. nontoxic. Skin: Warm, dry, Head: Atraumatic, loss of subcutaneous fat surrounding the eyes rather sunken appearance Ears, nose, mouth and throat: airway patent Neck: No JVD Cardiovascular: Normal peripheral perfusion Respiratory: no respiratory distress, no accessory muscle use Gastrointestinal: Non distended Musculoskeletal: No deformity, significant muscle wasting in the lumbricals of the fingers, 1+ pitting edema of the lower extremities Results & Data Vital Signs (Past 12 Hours) Vital Signs Pulse Resp BP Pulse Ox 05/22/19 08:00 85 05/22/19 07:00 80 05/22/19 06:21 82 17 88/49 L 99 01/18/20 05:17 90 17 88/56 L 99 Coding Level of Care Code 38930 Subseq Hosp Care Lvl 3 Diagnoses Polypharmacy Z79.899 Acute cor pulmonale I26.09 Acute hypoxemic respiratory failure J96.01 Intravenous infiltration T80.1XXA Encounter type: initial encounter Gastric bypass status for obesity Z98.84 Chronic obstructive pulmonary disease J44.9 COPD type: unspecified COPD Chronic kidney disease, stage 3 N18.3 (1) Intravenous infiltration Encounter type: initial encounter Qualified Code(s): T80.1XXA - Vascular co mplications following infusion, transfusion and therapeutic injection, initial encounter (2) Chronic obstructive pulmonary disease COPD type: unspecified COPD Qualified Code(s): J44.9 - Chronic obstructive pulmonary disease, unspecified
[2019-05-22] MEDS ORDERED: WARFARIN SOD 3 MG TAB PO SCH (17:00)
[2019-05-22] MEDS: MIDODRINE HCL 10 MG TAB PO SCH (17:26)
[2019-05-22] MEDS: ENOXAPARIN INJ 60 MG/0.6 ML SYR SQ SCH (17:26)
[2019-05-22] MEDS: FAMOTIDINE 40 MG TABLET PO SCH (17:26)
--- NOTE | 2019-05-22 17:34 | XRay Report ---
XR chest 1V portable HISTORY: 59 years-old Female infarct IN a patient with shortness of breath and hypotension COMPARISON: CTA chest and chest radiograph 05/17/2019, chest radiograph 05/20/2019 TECHNIQUE: Portable AP view of the chest FINDINGS: Cardiac silhouette is enlarged, unchanged. The patient is slightly rotated towards the right. Status post removal of the right IJ central venous catheter. Mild pulmonary vascular congestion with improve d aeration of the bilateral lungs. Minimal persistent ill-defined left midlung and left basilar opaci ties with trace effusions. Surgical clips project over the abdominal right upper quadrant. Degenerati ve changes of the shoulders and spine. IMPRESSION: 1. Cardiomegaly with pulmonary vascular congestion. 2. Improved aeration of the lung bases with minimal persistent ill-defined left midlung and left lung base airspace opacities. 3. Interval removal of the right IJ central venous catheter. ACT 112: Negative or not required by law. The above report was generated using voice recognition software. It may contain grammatical, syntax o r spelling errors. Electronically signed by: Yrn Holly M.D. 05/22/2019 5:32 PM
--- NOTE | 2019-05-22 18:09 | Hospitalist Progress Note ---
Date of Service May 22, 2019 Assessment & Plan (1) Pulmonary embolism: (2) Acute cor pulmonale: Acute shortness of breath for the last 2 or 3 days with bilateral calf pain for some time CTA noted to have extensive bilateral pulmonary embolism without any embolism in the main branch Received TPA and has been on intravenous heparin Saturating well on room air Clinically much better Heparin drip changed to lovenox, will need 5 more days Continue coumadin 3mg Monitor PT/INR and hemoglobin ECHO showed Echo show left ventricle is normal in size and Left ventricular systolic function is normal with ejection fraction 60 to 65% No wall motion abnormality and flattened septum is consistent with RV pressure overload (3) Acute hypoxemic respiratory failure: Secondary to acute extensive bilateral pulmonary embolism Noted to have high lactate but sepsis has been ruled out repeat CXR today showed improved aeration of the lung bases with minimal persistent ill-defined left midlung and left lung base airspace opacities. Received 1 dose of Levaquin and Zosyn in the emergency room No leukocytosis, lactate normalized Flu has been negative Urine tox screen negative Antibiotics have been discontinued (4) Hypotension: Likely secondary to CHF Pressor has been on and off BP stable Will continue monitor (5) Cellulitis of right lower extremity without foot: Continue daily wound care (6) Congestive heart failure, unspecified: Acute on chronic diastolic heart failure ProBNP on admission above 18K No diuretics now due to very low blood pressure CXR showed cardiomegaly with pulmonary vascular congestion. Continue to monitor (7) Gastric bypass status for obesity: No acute symptoms Continue PPI (8) Depression: Has been getting antidepressants No acute delirium DVT prophylaxis On intravenous heparin CODE STATUS FULL CODE Disposition Will transfer to PCU Waiting for placement to rehab Subjective Pt was seen and examined Lying in bed with no distress with fiance at bedside Pt said that she feels a little better She said that her strength slightly improves Denies any chest pain, palpitation and SOB Physical Exam Physical Exam: General- No acute distress Head- atraumatic Eyes- PERRL, EOMI, ENT- oropharynx clear Neck- supple, no JVD Lungs- clear to auscultation Heart- regular rhythm; no murmur Abdomen- normal bowel sounds, soft, nontender Extremities- no calf tenderness, +edema Neuro- alert, oriented x 3; PERRL, EOMI; no facial palsy; no dysarthria Skin- warm & dry Results & Data Vital Signs (Past 12 Hours) Vital Signs Temp Pulse Resp BP Pulse Ox 05/22/19 16:30 97 H 26 H 96 05/22/19 16:17 86 18 94/69 L 96 05/22/19 16:01 36.8 C 96 05/22/19 16:00 94 H 05/22/19 15:30 98 H 21 98 05/22/19 15:18 89 25 H 92/67 L 100 05/22/19 15:00 113 H 20 96 05/22/19 14:35 126 H 23 93 05/22/19 14:17 89 23 94/63 L 100 05/22/19 14:00 82 24 100 05/22/19 13:30 87 19 99 05/22/19 13:18 95 H 18 94/63 L 97 05/22/19 13:00 22 98 05/22/19 12:30 83 13 97 05/22/19 12:17 18 104/67 98 05/22/19 12:00 80 15 98 05/22/19 11:30 81 15 97 05/22/19 11:17 82 16 87/54 L 98 05/22/19 11:00 87 22 98 05/22/19 10:30 86 16 97 05/22/19 10:17 85 16 85/59 L 98 05/22/19 10:00 81 15 98 05/22/19 09:30 82 21 99 05/22/19 09:19 83 20 93/60 L 100 05/22/19 09:00 87 20 100 05/22/19 08:30 110 H 28 H 98 05/22/19 08:00 36.6 C 116 H 20 99 05/22/19 07:30 24 99 05/22/19 07:17 81 16 92/67 L 97 05/22/19 07:00 91 H 19 95 05/22/19 06:30 26 H 98 05/22/19 06:21 82 17 88/49 L 99 (1) Pulmonary embolism Acute cor pulmonale presence: unspecified Chronicity: unspecified Pulmonary embolism type: unspecified Qualified Code(s): I26.99 - Other pulmonary embolism without acute cor pulmonale (2) Hypotension Hypotension type: unspecified hypotension type Qualified Code(s): I95.9 - Hypotension, unspecified
[2019-05-22] MEDS: MIRTAZAPINE TAB 15 MG TAB PO SCH (20:20)
[2019-05-22] MEDS ORDERED: LORazepam 0.5 MG TAB PO STA (20:43)
[2019-05-23] MEDS: ENOXAPARIN INJ 60 MG/0.6 ML SYR SQ SCH ×2 (04:10→16:25)
[2019-05-23 05:57] LABS: Hematocrit (blood only) 26.3 % (37-47); Mean Corpuscular Hemoglobin 35.4 pg (25-34); Mean Corpuscular Hgb Conc 34.2 g/dL (32-36); Mean Corpuscular Volume 103.5 fL (80-100); Mean Platelet Volume 9.2 fL (7.4-10.4); Platelet Count 227 K/uL (130-400); RDW Coefficient of Variation 16.8 % (11.5-14.5); RDW Standard Deviation 62.9 fL (36.4-46.3); Red Blood Count 2.54 M/uL (4.2-5.4); White Blood Count 6.35 K/uL (4.8-10.8)
[2019-05-23 06:05] LABS: INR 1.8 (0.9-1.1); Prothrombin Time 17.4 Seconds (9.0-12.0)
[2019-05-23 06:27] LABS: Albumin Level 1.5 gm/dl (3.4-5.0); BUN Creatinine Ratio 7.6 (10-20); Bilirubin Direct 0.4 mg/dl (0-0.2); Calcium 7.7 mg/dl (8.5-10.1); Creatinine Clr Calc Pharmacy 65.1 ml/min; Est GFR (Non-African American) 84.5; Potassium 3.7 mmol/L (3.5-5.1)
[2019-05-23 06:30] LABS: Bilirubin,Total 0.6 mg/dl (0.2-1); Phosphorus 3.8 mg/dl (2.5-4.9); Total Protein 4.5 gm/dl (6.4-8.2)
[2019-05-23] MEDS: THIAMINE HCL 100 MG TAB PO SCH ×2 (07:59→20:19)
[2019-05-23] MEDS: CALCIUM CITRATE 950 MG TAB PO SCH ×2 (07:59→20:19)
[2019-05-23] MEDS: GABAPENTIN 100 MG CAP PO SCH ×3 (07:59→20:20)
[2019-05-23] MEDS: FERROUS SULFATE 325 MG/7.4 ML UDP PO SCH (08:00)
[2019-05-23] MEDS: VENLAFAXINE HCL 37.5 MG TAB PO SCH ×2 (08:00→20:19)
[2019-05-23] MEDS: MEGESTROL ACETATE SUSP 400 MG/10 ML UDC PO SCH (08:00)
[2019-05-23] MEDS: ASCORBIC ACID 500 MG TAB PO SCH (08:00)
[2019-05-23] MEDS: MIDODRINE HCL 10 MG TAB PO SCH ×3 (08:01→16:26)
[2019-05-23] MEDS: ZINC SULFATE 220 MG CAPSULE PO SCH (08:01)
[2019-05-23] MEDS: FAMOTIDINE 40 MG TABLET PO SCH (08:01)
[2019-05-23] MEDS: FLINTSTONES COMPLETE CHEWABLE TAB PO SCH ×2 (08:01→20:19)
[2019-05-23] MEDS: DIPHENOXYLATE/ATROPINE 2.5/0.025MG TAB PO PRN ×2 (08:01→16:23)
[2019-05-23] MEDS: CHOLECALCIFEROL 1,000 UNITS TAB PO SCH ×2 (08:02→20:19)
[2019-05-23] MEDS: ALBUTEROL HFA 8 GM INHALER INH SCH ×4 (08:02→20:21)
--- NOTE | 2019-05-23 13:12 | Hospitalist Progress Note ---
Date of Service May 23, 2019 Assessment & Plan (1) Pulmonary embolism: Acute shortness of breath for the last 2 or 3 days with bilateral calf pain for some time CTA noted to have extensive bilateral pulmonary embolism without any embolism in the main branch Received TPA and has been on intravenous heparin Saturating well on room air Clinically much better Appreciate technician support association input and recommendation (2) Acute cor pulmonale: Acute shortness of breath for the last 2 or 3 days with bilateral calf pain for some time CTA noted to have extensive bilateral pulmonary embolism without any embolism in the main branch Received TPA and has been on intravenous heparin Saturating well on room air Clinically much better Heparin drip changed to lovenox, Will need 3 more days of Lovenox bridge Coumadin decreased to 2mg today INR 1.8 today Monitor PT/INR and hemoglobin ECHO showed Echo show left ventricle is normal in size and Left ventricular systolic function is normal with ejection fraction 60 to 65% No wall motion abnormality and flattened septum is consistent with RV pressure overload (3) Acute hypoxemic respiratory failure: Secondary to acute extensive bilateral pulmonary embolism Noted to have high lactate but sepsis has been ruled out repeat CXR today showed improved aeration of the lung bases with minimal persistent ill-defined left midlung and left lung base airspace opacities. Received 1 dose of Levaquin and Zosyn in the emergency room No leukocytosis, lactate normalized Flu has been negative Urine tox screen negative Antibiotics have been discontinued (4) Hypotension: Likely secondary to CHF Pressor has been on and off BP stable Will continue monitor (5) Cellulitis of right lower extremity without foot: Continue daily wound care (6) Congestive heart failure, unspecified: Acute on chronic diastolic heart failure ProBNP on admission above 18K No diuretics now due to very low blood pressure CXR showed cardiomegaly with pulmonary vascular congestion. Continue to monitor (7) Gastric bypass status for obesity: No acute symptoms Continue PPI (8) Depression: Has been getting antidepressants No acute delirium DVT prophylaxis ON Lovenox Bridge with coumadin CODE STATUS FULL CODE Disposition Waiting for placement to rehab Subjective Pt was seen and examined Lying in bed with no distress Pt said that she feels ok Denies any chest pain, palpitation and SOB Physical Exam Physical Exam: General- No acute distress Head- atraumatic Eyes- PERRL, EOMI, ENT- oropharynx clear Neck- supple, no JVD Lungs- clear to auscultation Heart- regular rhythm; no murmur Abdomen- normal bowel sounds, soft, nontender Extremities- no calf tenderness, +edema Neuro- alert, oriented x 3; PERRL, EOMI; no facial palsy; no dysarthria Skin- warm & dry Results & Data Vital Signs (Past 12 Hours) Vital Signs Temp Pulse Pulse Resp BP Pulse Ox 05/23/19 11:12 36.9 C 71 18 97/66 L 95 05/23/19 08:00 81 05/23/19 06:45 36.6 C 82 19 96/65 L 96 05/23/19 02:38 37.3 C 104 H 18 97/62 L 96 (1) Pulmonary embolism Acute cor pulmonale presence: unspecified Chronicity: unspecified Pulmonary embolism type: unspecified Qualified Code(s): I26.99 - Other pulmonary embolism without acute cor pulmonale (2) Hypotension Hypotension type: unspecified hypotension type Qualified Code(s): I95.9 - Hypotension, unspecified
[2019-05-23] MEDS: WARFARIN SOD 2 MG TAB PO SCH (16:24)
[2019-05-23] MEDS: MIRTAZAPINE TAB 15 MG TAB PO SCH (20:19)
[2019-05-23] MEDS: ACETAMINOPHEN 325 MG TAB PO PRN (20:33)
--- NOTE | 2019-05-23 20:46 | XRay Report ---
XR chest 1V portable CLINICAL HISTORY: 59 years-old Female presenting with fever. TECHNIQUE: Portable upright AP view of the chest was obtained. COMPARISON: 05/22/2019. FINDINGS: Cardiac silhouette top normal in size. No significant pulmonary vascular prominence exam. Prominent c ostochondral calcification likely accounts for the apparent right upper lung opacity. Trace right ple ural effusion unchanged. No new focal opacity. No pneumothorax. Degenerative changes of the thoracic spine. Cholecystectomy clips noted. Gaseous distention of bowel. Numerous external leads project over the upper abdomen. IMPRESSION: 1. No focal infiltrate to suggest pneumonia. 2. Trace right pleural effusion, unchanged. 3. Gaseous distention of bowel, nonspecific. ACT 112: Negative or not required by law. Electronically signed by: Spencer Acuña M.D. 05/23/2019 8:45 PM
[2019-05-23] MEDS ORDERED: OXYCODONE HCL IR 5 MG TAB (IMMEDIATE RELEASE) PO STA (23:34)
[2019-05-23 23:40] LABS: Appearance Urine Turbid (Clear); Bacteria Urine Automated 3+ (Negative); Bilirubin Urine Negative (Negative); Blood Urine Trace (Negative); Color Urine Dark Yellow; Epithelial Cell Urine Auto >30 /lpf (0-5); Glucose Urine UA Negative (Negative); Ketones Urine Negative (Negative); Leukocyte Esterase Urine 2+ (Negative); Nitrite Urine Positive (Negative); Protein Urine Trace (Negative); RBC Urine Automated 0-4 /hpf (0-4); Specific Gravity Urine 1.013 (1.000-1.030); Urobilinogen Urine Negative (Negative); WBC Urine Automated >30 /hpf (0-5); pH Urine 5.5 (4.5-7.5)
[2019-05-24] MEDS ORDERED: CEFEPIME 2,000 MG in SYRINGE 7.5 ML IV ONE (03:30)
--- NOTE | 2019-05-24 04:10 | Communication Note ---
Date of Service: May 24, 2019 Low-grade fever last night. Patient complaining of back pain. UA WBC est, nitrites positive No kidney stone on initial CT read. AP Complicated UTI (hx Pseudomonas on prior urine CS) no sepsis for now Follow final urine cultures IV Cefepime for now Will relay to AM provider.
[2019-05-24] MEDS ORDERED: CEFEPIME CONSULT ACTIVE PRN (04:45)
[2019-05-24] MEDS: ENOXAPARIN INJ 60 MG/0.6 ML SYR SQ SCH ×2 (05:54→16:39)
[2019-05-24 06:07] LABS: INR 2.3 (0.9-1.1); Prothrombin Time 21.8 Seconds (9.0-12.0)
[2019-05-24 06:16] LABS: Calcium 7.7 mg/dl (8.5-10.1); Creatinine Clr Calc Pharmacy 61.1 ml/min; Est GFR (African American) 90.8; Est GFR (Non-African American) 78.3; Magnesium 1.9 mg/dl (1.8-2.4); Potassium 3.8 mmol/L (3.5-5.1)
[2019-05-24 06:17] LABS: Phosphorus 3.8 mg/dl (2.5-4.9)
--- NOTE | 2019-05-24 06:45 | CT Scan Report ---
CT SCAN OF THE ABDOMEN AND PELVIS WITHOUT CONTRAST CLINICAL HISTORY: back pain COMPARISON STUDY: 10/23/2017 TECHNIQUE: CT scan of the abdomen and pelvis was performed from the lung bases to the proximal femurs . Images are reviewed in the axial, sagittal, and coronal planes. IV contrast was not administered fo r this examination. A dose lowering technique was utilized adhering to the principles of ALARA. CT DOSE: FINDINGS: Lower chest: There are multifocal bilateral groundglass opacities more pronounced on the left. There is a 14 mm focus of masslike consolidation within the lingula. There is a trace right pleural effusio n. Liver: The unenhanced liver is normal in size, contour, and attenuation. There is no intrahepatic navi iary ductal dilatation. Gallbladder: Surgically absent. The common bile duct is mildly dilated measuring 1 cm. This remains u nchanged from the prior study. Spleen: Normal in size and attenuation. Pancreas: Unremarkable. Adrenal glands: Unremarkable. Kidneys: No renal, ureteral, or bladder calculi are visualized. Bowel: There are postsurgical changes of a prior gastric bypass. There are no transition zones indica te bowel obstruction. There are no findings to indicate acute diverticulitis. By history the appendix is surgically absent Peritoneum: There is no intraperitoneal free air or abdominal ascites. Vasculature: The abdominal aorta is normal in course and caliber. There is scattered atherosclerotic vascular calcifications Adenopathy: None. Pelvic viscera: The bladder, and pelvic viscera are unremarkable. Skeletal structures: No destructive osseous lesions are seen. There is generalized body wall edema. IMPRESSION: 1. Postsurgical changes of a prior gastric bypass and John-en-Y anastomosis 2. No evidence of bowel obstruction. No evidence of free air 3. Surgically absent gallbladder with stable mild common bile duct dilatation 4. No evidence of acute diverticulitis 5. No renal, ureteral, or bladder calculi identified 6. Generalized body wall edema 7. Bilateral lower lobe pulmonary groundglass opacities. In addition there is a 14 mm masslike area o f parenchymal consolidation within the lingula. There is a trace right pleural effusion. Clinical and radiographic follow-up will be necessary for these nonspecific parenchymal opacities. ACT 112: Negative or not required by law. Electronically signed by: Zachery Castro M.D. 05/24/2019 6:44 AM
--- NOTE | 2019-05-24 07:05 | CT Scan Report ---
HEAD CT NONCONTRAST CT DOSE: 1552.71 mGy.cm HISTORY: Headache. TECHNIQUE: Multiaxial CT images of the head were performed without the use of intravenous contrast. A utomated exposure control was utilized for this study. A dose lowering technique was utilized adheri ng to the principles of ALARA. Comparison: Head CT 05/17/2019. Findings: The paranasal sinuses and mastoid air cells are clear. The calvarium and skull base are int act. The ventricles and sulci are within normal limits. There is no mass, hematoma, midline shift, or acute infarct. Impression: No acute intracranial abnormality. ACT 112: Negative or not required by law. Electronically signed by: Elmer Quan M.D. 05/24/2019 7:04 AM
[2019-05-24] MEDS: GABAPENTIN 100 MG CAP PO SCH ×3 (08:19→21:29)
[2019-05-24] MEDS: FLINTSTONES COMPLETE CHEWABLE TAB PO SCH ×2 (08:19→21:29)
[2019-05-24] MEDS: MIDODRINE HCL 10 MG TAB PO SCH ×3 (08:19→16:38)
[2019-05-24] MEDS: ZINC SULFATE 220 MG CAPSULE PO SCH (08:20)
[2019-05-24] MEDS: VENLAFAXINE HCL 37.5 MG TAB PO SCH ×2 (08:20→21:29)
[2019-05-24] MEDS: CALCIUM CITRATE 950 MG TAB PO SCH ×2 (08:20→21:30)
[2019-05-24] MEDS: FAMOTIDINE 40 MG TABLET PO SCH (08:20)
[2019-05-24] MEDS: ASCORBIC ACID 500 MG TAB PO SCH (08:20)
[2019-05-24] MEDS: FERROUS SULFATE 325 MG/7.4 ML UDP PO SCH (08:21)
[2019-05-24] MEDS: CHOLECALCIFEROL 1,000 UNITS TAB PO SCH ×2 (08:21→21:29)
[2019-05-24] MEDS: THIAMINE HCL 100 MG TAB PO SCH ×2 (08:21→21:29)
[2019-05-24] MEDS: MEGESTROL ACETATE SUSP 400 MG/10 ML UDC PO SCH (08:21)
[2019-05-24] MEDS: ALBUTEROL HFA 8 GM INHALER INH SCH ×4 (08:22→21:30)
[2019-05-24] MEDS: CEFEPIME 2,000 MG in SYRINGE 7.5 ML IV SCH (16:37)
[2019-05-24] MEDS: WARFARIN SOD 2 MG TAB PO SCH (16:38)
--- NOTE | 2019-05-24 18:58 | Hospitalist Progress Note ---
Date of Service May 24, 2019 Assessment & Plan (1) Pulmonary embolism: Acute shortness of breath for the last 2 or 3 days with bilateral calf pain for some time CTA noted to have extensive bilateral pulmonary embolism without any embolism in the main branch Received TPA and has been on intravenous heparin Saturating well on room air Clinically much better Appreciate counter waiter input and recommendation (2) Acute cor pulmonale: Acute shortness of breath for the last 2 or 3 days with bilateral calf pain for some time CTA noted to have extensive bilateral pulmonary embolism without any embolism in the main branch Received TPA and has been on intravenous heparin Saturating well on room air Clinically much better Heparin drip changed to lovenox, last day of Lovenox on 05/25 Coumadin decreased to 2mg today INR 2.3 today Monitor PT/INR and hemoglobin ECHO showed Echo show left ventricle is normal in size and Left ventricular systolic function is normal with ejection fraction 60 to 65% No wall motion abnormality and flattened septum is consistent with RV pressure overload (3) Acute hypoxemic respiratory failure: Secondary to acute extensive bilateral pulmonary embolism Noted to have high lactate but sepsis has been ruled out repeat CXR today showed improved aeration of the lung bases with minimal persistent ill-defined left midlung and left lung base airspace opacities. Received 1 dose of Levaquin and Zosyn in the emergency room No leukocytosis, lactate normalized Flu has been negative Urine tox screen negative Antibiotics have been discontinued (4) Hypotension: Likely secondary to CHF Pressor has been on and off BP stable Will continue monitor (5) Cellulitis of right lower extremity without foot: Continue daily wound care (6) Congestive heart failure, unspecified: Acute on chronic diastolic heart failure ProBNP on admission above 18K No diuretics now due to very low blood pressure CXR showed cardiomegaly with pulmonary vascular congestion. Continue to monitor (7) UTI (urinary tract infection): UA positive for leukocytes, nitrite and bacteria Continue IV cepime Urine cx pending (8) Gastric bypass status for obesity: No acute symptoms Continue PPI (9) Depression: Has been getting antidepressants No acute delirium DVT prophylaxis ON Lovenox Bridge with coumadin CODE STATUS FULL CODE Disposition Waiting for placement to rehab Subjective Pt was seen and examined Lying in bed with no distress Pt said that she feels alittle bloating today She said that she walked with therapy in the hallway today Denies any chest pain, palpitation and SOB Physical Exam Physical Exam: General- No acute distress Head- atraumatic Eyes- PERRL, EOMI, ENT- oropharynx clear Neck- supple, no JVD Lungs- clear to auscultation Heart- regular rhythm; no murmur Abdomen- normal bowel sounds, soft, nontender Extremities- no calf tenderness, +edema Neuro- alert, oriented x 3; PERRL, EOMI; no facial palsy; no dysarthria Skin- warm & dry Results & Data Vital Signs (Past 12 Hours) Vital Signs Temp Pulse Pulse Resp BP BP Pulse Ox 05/24/19 15:42 87 05/24/19 15:26 37.0 C 93 H 19 99/67 L 99 05/24/19 11:05 37.4 C 109 H 19 101/64 94 05/24/19 07:27 37.0 C 97 H 18 101/65 96 05/24/19 07:24 87 (1) Pulmonary embolism Acute cor pulmonale presence: unspecified Chronicity: unspecified Pulmonary embolism type: unspecified Qualified Code(s): I26.99 - Other pulmonary embolism without acute cor pulmonale (2) Hypotension Hypotension type: unspecified hypotension type Qualified Code(s): I95.9 - Hypotension, unspecified
[2019-05-24] MEDS: MIRTAZAPINE TAB 15 MG TAB PO SCH (21:29)
[2019-05-24] MEDS: ACETAMINOPHEN 325 MG TAB PO PRN (21:32)
[2019-05-25 05:23] LABS: Hematocrit (blood only) 26.2 % (37-47); Hemoglobin 8.9 g/dL (12.0-16.0); Mean Corpuscular Hemoglobin 34.6 pg (25-34); Mean Corpuscular Volume 101.9 fL (80-100); Mean Platelet Volume 9.2 fL (7.4-10.4); Platelet Count 221 K/uL (130-400); RDW Coefficient of Variation 16.4 % (11.5-14.5); RDW Standard Deviation 61.9 fL (36.4-46.3); Red Blood Count 2.57 M/uL (4.2-5.4); White Blood Count 5.79 K/uL (4.8-10.8)
[2019-05-25 05:32] LABS: INR 2.7 (0.9-1.1); Prothrombin Time 25.8 Seconds (9.0-12.0)
[2019-05-25] MEDS: CEFEPIME 2,000 MG in SYRINGE 7.5 ML IV SCH ×2 (05:44→15:27)
[2019-05-25] MEDS: ENOXAPARIN INJ 60 MG/0.6 ML SYR SQ SCH ×2 (05:45→17:30)
[2019-05-25 05:50] LABS: BUN Creatinine Ratio 8.3 (10-20); Calcium 7.8 mg/dl (8.5-10.1); Creatinine Clr Calc Pharmacy 60.4 ml/min; Est GFR (African American) 89.5; Est GFR (Non-African American) 77.2; Magnesium 1.9 mg/dl (1.8-2.4); Phosphorus 4.2 mg/dl (2.5-4.9); Potassium 3.7 mmol/L (3.5-5.1)
[2019-05-25] MEDS: CALCIUM CITRATE 950 MG TAB PO SCH (08:50)
[2019-05-25] MEDS: MIDODRINE HCL 10 MG TAB PO SCH ×3 (08:50→17:29)
[2019-05-25] MEDS: THIAMINE HCL 100 MG TAB PO SCH (08:51)
[2019-05-25] MEDS: GABAPENTIN 100 MG CAP PO SCH ×2 (08:51→13:57)
[2019-05-25] MEDS: FAMOTIDINE 40 MG TABLET PO SCH (08:51)
[2019-05-25] MEDS: ZINC SULFATE 220 MG CAPSULE PO SCH (08:51)
[2019-05-25] MEDS: ASCORBIC ACID 500 MG TAB PO SCH (08:51)
[2019-05-25] MEDS: FLINTSTONES COMPLETE CHEWABLE TAB PO SCH (08:51)
[2019-05-25] MEDS: FERROUS SULFATE 325 MG/7.4 ML UDP PO SCH (08:51)
[2019-05-25] MEDS: VENLAFAXINE HCL 37.5 MG TAB PO SCH (08:51)
[2019-05-25] MEDS: CHOLECALCIFEROL 1,000 UNITS TAB PO SCH (08:51)
[2019-05-25] MEDS: ALBUTEROL HFA 8 GM INHALER INH SCH ×3 (08:51→17:55)
[2019-05-25] MEDS: ONDANSETRON 4 MG TAB PO PRN (13:57)
[2019-05-25 15:10] VITALS: PULSE 81; TEMP 97.5; O2SAT 91
[2019-05-25] MEDS: WARFARIN SOD 2 MG TAB PO SCH (15:28)
--- NOTE | 2019-05-25 16:15 | Hospitalist Progress Note ---
Date of Service May 25, 2019 Assessment & Plan (1) Pulmonary embolism: (2) Acute cor pulmonale: Acute shortness of breath for the last 2 or 3 days with bilateral calf pain for some time CTA noted to have extensive bilateral pulmonary embolism without any embolism in the main branch Received TPA and has been on intravenous heparin Saturating well on room air Clinically much better Heparin drip changed to lovenox, last day of Lovenox on 05/25 Continue Coumadin 2mg INR 2.7 today Monitor PT/INR and hemoglobin ECHO showed Echo show left ventricle is normal in size and Left ventricular systolic function is normal with ejection fraction 60 to 65% No wall motion abnormality and flattened septum is consistent with RV pressure overload Follow up with the coag clinic (3) Acute hypoxemic respiratory failure: Secondary to acute extensive bilateral pulmonary embolism Noted to have high lactate but sepsis has been ruled out repeat CXR today showed improved aeration of the lung bases with minimal persistent ill-defined left midlung and left lung base airspace opacities. Received 1 dose of Levaquin and Zosyn in the emergency room No leukocytosis, lactate normalized Flu has been negative Urine tox screen negative Antibiotics have been discontinued (4) Hypotension: Likely secondary to CHF Pressor has been on and off BP stable Will continue monitor (5) Cellulitis of right lower extremity without foot: Continue daily wound care (6) Congestive heart failure, unspecified: Acute on chronic diastolic heart failure ProBNP on admission above 18K No diuretics now due to very low blood pressure CXR showed cardiomegaly with pulmonary vascular congestion. Continue to monitor (7) UTI (urinary tract infection): UA positive for leukocytes, nitrite and bacteria Urine cx grew gram negative bacilli Continue IV cefepime Will change to cefdinir for 3 days Will follow urine sensitivity in am. If resistant with Cefdinir, will call [facility] to change abx (8) Gastric bypass status for obesity: No acute symptoms Continue PPI (9) Depression: Has been getting antidepressants No acute delirium DVT prophylaxis ON Lovenox [place] with coumadin (Only need 1 more dose of Lovenox CODE STATUS FULL CODE Disposition discharge to [facility] today Subjective Pt was seen and examined Lying in bed with no distress with fiance at bedside Pt said that she feels ok She has been walking in the [place] with no distress She said that she only has one episode of diarrhea today Denies any chest pain, palpitation and SOB Physical Exam Physical Exam: General- No acute distress Head- atraumatic Eyes- PERRL, EOMI, ENT- oropharynx clear Neck- supple, no JVD Lungs- clear to auscultation Heart- regular rhythm; no murmur Abdomen- normal bowel sounds, soft, nontender Extremities- no calf tenderness, +edema Neuro- alert, oriented x 3; PERRL, EOMI; no facial palsy; no dysarthria Skin- warm & dry Results & Data Vital Signs (Past 12 Hours) Vital Signs Temp Pulse Resp BP Pulse Ox 05/25/19 15:07 36.4 C L 81 20 96/57 L 91 05/25/19 11:19 36.6 C 98 H 18 110/73 97 05/25/19 07:38 36.8 C 97 H 16 101/71 99 (1) Pulmonary embolism Acute cor pulmonale presence: unspecified Chronicity: unspecified Pulmonary embolism type: unspecified Qualified Code(s): I26.99 - Other pulmonary embolism without acute cor pulmonale (2) Hypotension Hypotension type: unspecified hypotension type Qualified Code(s): I95.9 - Hypotension, unspecified
[2019-05-25 16:56] VITALS: BP 101/65
--- NOTE | 2019-05-26 00:04 | Discharge Summary ---
Date of Service May 25, 2019 Admission HPI Per Admitting Provider DATE OF ADMISSION: 05/18/2019 The patient was admitted to ICU on 05/17/2019 but the patient was seen on 05/18/2019. CHIEF COMPLAINT: Chest pain, shortness of breath, submassive PE. HISTORY OF PRESENT ILLNESS: This is a 59-year-old female with past medical history significant for hyperlipidemia, multinodular goiter, left ventricular hypertrophy, gastric bypass surgery for obesity, reflux esophagitis, moderate protein-calorie malnutrition, mild cervical dysplasia, restless legs syndrome, fibromyalgia, ulcer at site of the surgical anastomosis following gastric bypass, depression, history of alcohol use, presents with chest pain and shortness of breath going on for last 2 days and patient was found to have submassive PE in the ER with elevated lactic acid and was hypotensive and Critical Care gave her TPA and status post right IJ central line and A-line and started on heparin and currently in the ICU. She says still there is some shortness of breath, still has 8/10 in severity pain in the left side of the chest, has some headache. She was feeling for last 2 days dizziness and walking 5 feet to the bathroom making her short of breath and she was profusely sweating in the nighttime. Has dry cough. Denies any fever, chills, no nausea, no vomiting. Appetite is okay. No abdominal pain. Normal bowel and bladder movements. No hematuria or black stools. On 04/21/2019, she fell when she was getting up from bed and she has a small wound on her left nichols region with a dressing. No drainage seen. Currently hemodynamics are stable. Admission Exam Per Admitting Provider GENERAL: The patient is moderate build, not in acute distress currently. VITAL SIGNS: Temperature 36.4, pulse 95, respiratory rate 18, blood pressure 104/76, oxygen currently 90% on room air. HEENT: No pallor, no icterus. Pupils equal, round, and reactive to light. NECK: No JVD. Status post right IJ central line. Supple. CARDIOVASCULAR: S1, S2 heard, regular rate and rhythm, no murmur, no gallop. RESPIRATORY SYSTEM: Normal AP diameter. No accessory muscle use. No wheezing, no crackles. ABDOMEN: Soft, bowel sounds present, nontender. No distention. CENTRAL NERVOUS SYSTEM: Alert and oriented. Obeys commands. Moves extremities. EXTREMITIES: No edema, no erythema. Left nichols has a bruise with a dressing. No drainage seen. Principal Diagnosis (1) Pulmonary embolism: (2) Acute cor pulmonale: (3) Acute hypoxemic respiratory failure (4) Hypotension: (5) Cellulitis of right lower extremity without foot: (6) Congestive heart failure, unspecified: (7) UTI (urinary tract infection) (8) Gastric bypass status for obesity: (9) Depression: Discharge Exam General- No acute distress Head- atraumatic Eyes- PERRL, EOMI, ENT- oropharynx clear Neck- supple, no JVD Lungs- clear to auscultation Heart- regular rhythm; no murmur Abdomen- normal bowel sounds, soft, nontender Extremities- no calf tenderness, +edema Neuro- alert, oriented x 3; PERRL, EOMI; no facial palsy; no dysarthria Skin- warm & dry Discharge Data Allergies Allergy/AdvReac Type Severity Reaction Status Date / Time codeine Allergy Intermediate Diarrhea/Ra Verified 05/17/19 19:03 sh duloxetine Allergy Intermediate Crawling Verified 05/17/19 19:03 out of her skin sensation NSAIDS (Non-Steroidal Allergy Unknown None Verified 05/17/19 19:04 Anti-Inflamma Bactrim AdvReac Intermediate DELIRIUM Verified 12/28/17 19:46 clonazepam AdvReac Intermediate Syncope Verified 05/13/19 14:45 hydrocodone AdvReac Intermediate Over Verified 05/10/19 14:47 sedated hydromorphone AdvReac Intermediate Weakness Verified 05/17/19 19:05 and sweating sulfamethoxazole AdvReac Intermediate DELIRIUM Verified 05/10/19 14:47 trimethoprim AdvReac Intermediate DELIRIUM Verified 05/10/19 14:47 aspirin AdvReac Mild STOMACH Verified 05/17/19 19:04 IRRITATION cephalexin AdvReac Mild GI SYMPTOMS Verified 05/17/19 19:05 Consultations 05/17/19 18:12 Consult Excellence Coach Stat 05/17/19 19:24 Consult Case Management - Discharge Planning Routine 05/17/19 19:42 Consult Excellence Coach Stat 05/18/19 00:43 Consult Case Management - Discharge Planning Routine Ordered Studies 05/17/19 16:45 CT angio chest PE protocol Stat 05/17/19 19:46 CT head/brain wo con Stat 05/23/19 23:34 CT head/brain wo con Urgent 05/23/19 23:35 CT abd pelvis wo con Urgent CT SCAN OF THE ABDOMEN AND PELVIS WITHOUT CONTRAST CLINICAL HISTORY: back pain COMPARISON STUDY: 10/23/2017 TECHNIQUE: CT scan of the abdomen and pelvis was performed from the lung bases to the proximal femurs. Images are reviewed in the axial, sagittal, and coronal planes. IV contrast was not administered for this examination. A dose lowering technique was utilized adhering to the principles of ALARA. CT DOSE: FINDINGS: Lower chest: There are multifocal bilateral groundglass opacities more pronounced on the left. There is a 14 mm focus of masslike consolidation within the lingula. There is a trace right pleural effusion. Liver: The unenhanced liver is normal in size, contour, and attenuation. There is no intrahepatic biliary ductal dilatation. Gallbladder: Surgically absent. The common bile duct is mildly dilated measuring 1 cm. This remains unchanged from the prior study. Spleen: Normal in size and attenuation. Pancreas: Unremarkable. Adrenal glands: Unremarkable. Kidneys: No renal, ureteral, or bladder calculi are visualized. Bowel: There are postsurgical changes of a prior gastric bypass. There are no transition zones indicate bowel obstruction. There are no findings to indicate acute diverticulitis. By history the appendix is surgically absent Peritoneum: There is no intraperitoneal free air or abdominal ascites. Vasculature: The abdominal aorta is normal in course and caliber. There is scattered atherosclerotic vascular calcifications Adenopathy: None. Pelvic viscera: The bladder, and pelvic viscera are unremarkable. Skeletal structures: No destructive osseous lesions are seen. There is generalized body wall edema. IMPRESSION: 1. Postsurgical changes of a prior gastric bypass and John-en-Y anastomosis 2. No evidence of bowel obstruction. No evidence of free air 3. Surgically absent gallbladder with stable mild common bile duct dilatation 4. No evidence of acute diverticulitis 5. No renal, ureteral, or bladder calculi identified 6. Generalized body wall edema 7. Bilateral lower lobe pulmonary groundglass opacities. In addition there is a 14 mm masslike area of parenchymal consolidation within the lingula. There is a trace right pleural effusion. Clinical and radiographic follow-up will be necessary for these nonspecific parenchymal opacities. ACT 112: Negative or not required by law. Electronically signed by: Zachery Castro M.D. 05/24/2019 6:44 AM Dictated: 05/24/19 0637 Transcribed: 05/24/19 06 XR chest 1V portable CLINICAL HISTORY: 59 years-old Female presenting with fever. TECHNIQUE: Portable upright AP view of the chest was obtained. COMPARISON: 05/22/2019. FINDINGS: Cardiac silhouette top normal in size. No significant pulmonary vascular prominence exam. Prominent costochondral calcification likely accounts for the apparent right upper lung opacity. Trace right pleural effusion unchanged. No new focal opacity. No pneumothorax. Degenerative changes of the thoracic spine. Cholecystectomy clips noted. Gaseous distention of bowel. Numerous external emilie ds project over the upper abdomen. IMPRESSION: 1. No focal infiltrate to suggest pneumonia. 2. Trace right pleural effusion, unchanged. 3. Gaseous distention of bowel, nonspecific. ACT 112: Negative or not required by law. Electronically signed by: Spencer Acuña M.D. 05/23/2019 8:45 PM Dictated: 05/23/192041 Transcribed: 05/23/192041 XR chest 1V portable HISTORY: 59 years-old Female infarct IN a patient with shortness of breath and hypotension COMPARISON: CTA chest and chest radiograph 05/17/2019, chest radiograph 05/20/2019 TECHNIQUE: Portable AP view of the chest FINDINGS: Cardiac silhouette is enlarged, unchanged. The patient is slightly rotated towards the right. Status post removal of the right IJ central venous catheter. Mild pulmonary vascular congestion with improved aeration of the bilateral lungs. Minimal persistent ill-defined left midlung and left basilar opacities with trace effusions. Surgical clips project over the abdominal right upper quadrant. Degenerative changes of the shoulders and spine. IMPRESSION: 1. Cardiomegaly with pulmonary vascular congestion. 2. Improved aeration of the lung bases with minimal persistent ill-defined left midlung and left lung base airspace opacities. 3. Interval removal of the right IJ central venous catheter. ACT 112: Negative or not required by law. The above report was generated using voice recognition software. It may contain grammatical, syntax or spelling errors. Electronically signed by: Yrn Holly M.D. 05/22/2019 5:32 PM Dictated: 05/22/191729 Transcribed: 05/22/191729 XR chest 1V portable CLINICAL HISTORY: Abnormal chest x-ray. Follow-up study. COMPARISON STUDY: 05/17/2019 FINDINGS: The cardiac and mediastinal contours remain stable. The patient is rotated. There is a right internal jugular central venous catheter unchanged in position. There is blunting of both lateral costophrenic angle suggesting trace effusions. Mild pulmonary vascular congestion is suspected. There is interval development of left subtle left basilar opacities[. These could be atelectatic, infectious/inflammatory, or related to mild edema. IMPRESSION: 1. Radiographic evidence of mild pulmonary vascular congestion with trace pleural effusions 2. Interval development of minor nonspecific left basilar airspace opacities ACT 112: Negative or not required by law. Electronically signed by: Zachery Castro M.D. 05/20/2019 7:05 AM Dictated: 05/20/19702 Transcribed: 05/20/19702 CT head/brain wo con CT DOSE: 638.56 mGycm HISTORY: Mental status change headache TECHNIQUE: Multiaxial CT images of the head were performed without the use of intravenous contrast. A dose lowering technique was utilized adhering to the principles of ALARA. Comparison: 03/24/2018 Findings: Mild chronic frontal atrophy. No evidence for acute intracranial hemorrhage. No midline shift. Major sinuses are considered clear. IMPRESSION: 1. Chronic frontal atrophy. 2. No acute intracranial abnormality. Impression: No acute intracranial abnormality. ACT 112: Negative or not required by law. The above report was generated using voice recognition software. It may contain grammatical, syntax or spelling errors. Electronically signed by: Tello Warren M.D. 05/17/2019 7:55 PM Dictated: 05/17/191952 Transcribed: 05/17/191952 XR chest 1V portable CLINICAL HISTORY: cvc line placement COMPARISON STUDY: 09/23/2018 FINDINGS: Right internal jugular catheter placed in the superior vena cava. No evidence of pneumothorax. Interval right upper lobe infiltrate. Diaphragms are smooth. IMPRESSION: Central catheter in superior vena cava. 2. No evidence of pneumothorax. 3. Developing right upper lobe infiltrate. ACT 112: Negative or not required by law. The above report was generated using voice recognition software. It may contain grammatical, syntax or spelling errors. Electronically signed by: Tello Warren M.D. 05/17/2019 7:18 PM Dictated: 05/17/191916 Transcribed: 05/17/191916 Hospital Course (1) Pulmonary embolism: (2) Acute cor pulmonale: Acute shortness of breath for the last 2 or 3 days with bilateral calf pain for some time CTA noted to have extensive bilateral pulmonary embolism without any embolism in the main branch Received TPA and has been on intravenous heparin Saturating well on room air Clinically much better Heparin drip changed to lovenox, last day of Lovenox on 05/25 Continue Coumadin 2mg INR 2.7 today Monitor PT/INR and hemoglobin ECHO showed Echo show left ventricle is normal in size and Left ventricular systolic function is normal with ejection fraction 60 to 65% No wall motion abnormality and flattened septum is consistent with RV pressure overload Follow up with the coag clinic (3) Acute hypoxemic respiratory failure: Secondary to acute extensive bilateral pulmonary embolism Noted to have high lactate but sepsis has been ruled out repeat CXR today showed improved aeration of the lung bases with minimal persistent ill-defined left midlung and left lung base airspace opacities. Received 1 dose of Levaquin and Zosyn in the emergency room No leukocytosis, lactate normalized Flu has been negative Urine tox screen negative Antibiotics have been discontinued (4) Hypotension: Likely secondary to CHF Pressor has been on and off BP stable Will continue monitor (5) Cellulitis of right lower extremity without foot: Continue daily wound care (6) Congestive heart failure, unspecified: Acute on chronic diastolic heart failure ProBNP on admission above 18K No diuretics now due to very low blood pressure CXR showed cardiomegaly with pulmonary vascular congestion. Continue to monitor (7) UTI (urinary tract infection): UA positive for leukocytes, nitrite and bacteria Urine cx grew gram negative bacilli Continue IV cefepime Will change to cefdinir for 3 days Will follow urine sensitivity in am. If resistant with Cefdinir, will call [facility] to change abx (8) Gastric bypass status for obesity: No acute symptoms Continue PPI (9) Depression: Has been getting antidepressants No acute delirium DVT prophylaxis ON Lovenox [place] with coumadin (Only need 1 more dose of Lovenox CODE STATUS FULL CODE Disposition discharge to [facility] today Total Time Total Time Spent Total Time Spent (In Minutes): 35 minutes Total Time Includes: Examination of the Patient, Discharge Planning, Medication Reconciliation, Communication With Other Providers and Other Discharge Plan Discharge Items Patient Disposition: Transfer Inpatient Rehab Fac Reason For Visit: PNEUMONIA, WEAKNESS, FEVER, SOB, CHEST PAIN, SWEAT Discharge Diagnosis: (1) Pulmonary embolism: (2) Acute cor pulmonale: (3) Acute hypoxemic respiratory failure (4) Hypotension: (5) Cellulitis of right lower extremity without foot: (6) Congestive heart failure, unspecified: (7) UTI (urinary tract infection) (8) Gastric bypass status for obesity: (9) Depression: Activity: Resume your previous activity Non-emergency contact: Primary Care Provider Call non-emergency contact if: you have any medication questions and your temperature is above 101 Follow-up/Referrals: Kvng Ceron DO [Primary Care Provider] - Diet: Regular Addtl Attending Provider Instructions: Follow up with your primary care provider once discharge from [facility] Continue physical and occupational therapy Follow up with the coumadin clinic (Check PT/INR in 1 to 2 days ) Urine sensitivity pending, will call if sensitivity is resistant with cefdinir Fall precaution Avoid any activity with risk of fall Notify your physician if you develop any abnormal bleeding Check CBC and BMP in 1 week Medication Instructions: Coumadin Warfarin is a medicine prescribed to prevent blood clots Warfarin will thin your blood and help prevent new clots Take your medications exactly as directed Never skip a dose. Never take a double dose. If you miss a dose, take it as soon as you remember It is important for your doctor to monitor your prothrombin time (PT). This is a lab test Keep your appointment for lab tests Risk of Adverse Drug Reactions and Interactions: Warfarin increases your risk of bleeding The food you eat and other medications you take can affect how Warfarin works in your body Ask your doctor about daily aspirin therapy It is very important to talk with your doctor about all of the other medicines, antibiotics, vitamins or herbal products that you are taking All of your medication must be approved by your doctor, including new medicines, as well as medicines you have taken before you started taking Warfarin Avoid NSAIDs (Motrin, Aleve, Naproxen, Ibuprofen, Advil, Meloxicam,..) due to risks of bleeding Diet: In order for Warfarin to work properly, it is important to keep your intake of Vitamin K as consistent as possible You should avoid any sudden change in Vitamin K intake Report any significant changes in your diet or weight to your doctor Call your Primary Care doctor if you experience any of the following: Swelling or Pain in your leg Sudden, continuous pain deep in a muscle Pain that worsens when you are active or when you stand still for a long time Chest Pain Sudden Shortness of Breath Rapid or pounding heart beat Fainting Dizziness Cough with blood or bloody sputum Sweating more than normal Bruises Heavy or uncontrolled bleeding Blood in your urine, stool or vomit Black or tarry stools Caring for Your Self at Home: Avoid sitting, standing or lying down for long periods without moving your legs and feet When traveling by car, stop to get out and move around at least once every 3 hours On long airplane, train or bus rides, get up and move around when possible If you can't get up, wiggle your toes and tighten your calves to keep your blood moving It is important for you to keep your follow up appointments with your medical provider. Follow-up with your primary care provider, gastric surgeon, prescriber of Effexor to confirm opening the capsule to take the medication is okay. This could cause too much medication to be absorbed too quickly. Pending Studies at Discharge: Yes Studies:: Urine sensitivity Stand-Alone Forms: Call Back Authorization, [facility], [facility] Skilled Items Patient informed of condition?: Yes DNR: No Discharge Level of Care: Acute rehab Communicable Disease: No Discharge Prognosis: Stable Lines: None Urinary Catheter: No Medications and DC Order Prescriptions: New warfarin [Coumadin] 2 mg Tablet 2 mg PO DAILY@1600 30 Days Qty: 30 RF: 0 enoxaparin 60 mg/0.6 mL Syringe 60 mg subcut Q12H Qty: 1 RF: 0 midodrine 10 mg Tablet 10 mg PO TID@0800,1200,1700 Qty: 30 RF: 0 zinc sulfate 220 (50) mg Capsule 220 mg PO QAM 30 Days Qty: 30 RF: 0 cefdinir 300 mg capsule 300 mg PO BID 3 Days Qty: 6 RF: 0 Continued gabapentin 100 mg Capsule 100 mg PO TID RF: 0 omeprazole 20 mg Capsule,Delayed Release(Dr/Ec) 20 mg PO BID RF: 0 albuterol sulfate [Ventolin HFA] 90 mcg/actuation Hfa Aerosol Inhaler 2 puff INHALATION QID RF: 0 potassium chloride 20 mEq tablet,ER particles/crystals 20 meq PO QAM RF: 0 ondansetron HCl 4 mg Tablet 4 mg PO Q8H PRN (Reason: Nausea) RF: 0 thiamine HCl (vitamin B1) 100 mg Tablet 100 mg PO BID RF: 0 nystatin 100,000 unit/gram Powder 1 applic TOPICAL TID PRN (Reason: Rash) RF: 0 cholecalciferol (vitamin D3) [Vitamin D3] 2,000 unit Capsule 2,000 unit PO BID RF: 0 Ensure Liquid 1 ea PO DAILY RF: 0 vitamin A 10,000 unit Capsule 10,000 unit PO DAILY RF: 0 magnesium 200 mg Tablet 100 mg PO DAILY RF: 0 calcium citrate 200 mg (950 mg) Tablet 200 mg PO BID RF: 0 cyanocobalamin (vitamin B-12) 1,000 mcg/mL Solution 1,000 mcg IM MONTHLY RF: 0 venlafaxine 75 mg tablet 75 mg PO BID RF: 0 buspirone 10 mg tablet 10 mg PO HS RF: 0 mirtazapine 45 mg tablet 45 mg PO HS RF: 0 Flintstones Complete tablet,chewable 1 tab PO BID RF: 0 Discharge Orders: Discharge Order (Routine); Ordered 05/25/19 Ordered By: Zulay Oliveros Admission Data Admit Date/Time: 05/17/19 19:24 Attending Provider: Zulay Oliveros Admit Provider: Mert Mosquera Primary Care Provider: Kvng Ceron Other Providers: Anoop Madrigal ; Ailyn Cui ; [facility] Other Interventions: Discharge Summary Assessment (RN) Last Done: 05/25/19 16:44 DC Date/Time DO NOT enter until pt leaves facility: 05/25/19 18:22
== END 2019-05-25 18:22 | DRG 175 ==
LOC: ED 16:13 → SUATTDRO 19:24 → 1E 19:24 → 2S 05-22 18:18

== ENCOUNTER 2019-06-08 15:51 | Inpatient (IN) ==
[2019-06-08] MEDS ORDERED: ONDANSETRON INJ 2 MG/ML 2 ML VIAL IV STA (17:02)
[2019-06-08] MEDS ORDERED: DiphenhydrAMINE HCL 50 MG/ML VIAL IV STA (17:02)
[2019-06-08] MEDS ORDERED: ACETAMINOPHEN 1,000 MG/100 ML VIAL IV STA (17:09)
[2019-06-08] MEDS ORDERED: SODIUM CHLORIDE 0.9% 1000ML 1,000 ML IV SCH (17:15)
--- NOTE | 2019-06-08 17:25 | XRay Report ---
SINGLE VIEW CHEST CLINICAL HISTORY: Atypical chest pain. FINDINGS: An AP, portable, upright chest radiograph is compared to study dated 05/23/2019 and correlat ed with chest CT dated 05/17/2019. The examination is degraded by portable technique and patient rotat ion. The cardiomediastinal silhouette is unremarkable noting atherosclerotic calcification of the tho racic. Advanced emphysema and chronic interstitial thickening are similar to previous. Foci of parenc hyma scarring are unchanged. There is chronic elevation of right hemidiaphragm. No airspace consolida tion or large pleural effusion is identified. No pneumothorax is seen. The skeletal structures are os teopenic. The bony thorax is grossly intact. Cholecystectomy clips are seen in the right upper quadra nt. IMPRESSION: Advanced emphysematous change with no acute cardiopulmonary abnormality. ACT 112: Negative or not required by law. Electronically signed by: Devin Aguirre M.D. 06/08/2019 5:23 PM
[2019-06-08 18:37] LABS: Basophils # (auto) 0.02 K/uL (0-0.2); Basophils % (auto) 0.2 %; Eosinophils # (auto) 0.02 K/uL (0-0.5); Eosinophils % (auto) 0.2 %; Hematocrit (blood only) 29.7 % (37-47); Hemoglobin 9.8 g/dL (12.0-16.0); Immature Granulocytes # (auto) 0.02 K/uL (0.00-0.02); Immature Granulocytes % (auto) 0.2 %; Lymphocytes # (auto) 0.87 K/uL (1.2-3.4); Mean Corpuscular Hemoglobin 34.3 pg (25-34); Mean Corpuscular Volume 103.8 fL (80-100); Mean Platelet Volume 9.2 fL (7.4-10.4); Monocytes # (auto) 0.59 K/uL (0.11-0.59); Monocytes % (auto) 6.8 %; Neutrophils # (auto) 7.21 K/uL (1.4-6.5); Neutrophils % (auto) 82.6 %; Platelet Count 309 K/uL (130-400); RDW Coefficient of Variation 16.6 % (11.5-14.5); RDW Standard Deviation 62.6 fL (36.4-46.3); Red Blood Count 2.86 M/uL (4.2-5.4); White Blood Count 8.73 K/uL (4.8-10.8)
[2019-06-08 18:49] LABS: INR 1.2 (0.9-1.1); Partial Thromboplastin Time 26.1 Seconds (21.0-31.0); Prothrombin Time 12.2 Seconds (9.0-12.0)
[2019-06-08 18:54] LABS: Alanine Aminotransferase 19 U/L (12-78); Albumin Level 1.4 gm/dl (3.4-5.0); Aspartate Aminotransferase 15 U/L (15-37); BUN Creatinine Ratio 14.4 (10-20); Blood Urea Nitrogen 10 mg/dl (7-18); Carbon Dioxide 26 mmol/L (21-32); Chloride 110 mmol/L (98-107); Est GFR (African American) 108.1; Est GFR (Non-African American) 93.2; Glucose 69 mg/dl (70-99); Magnesium 1.8 mg/dl (1.8-2.4); Potassium 4.5 mmol/L (3.5-5.1); Sodium 138 mmol/L (136-145)
[2019-06-08 19:04] LABS: Albumin Globulin Ratio 0.4 (0.9-2); Alkaline Phosphatase 147 U/L (45-117); Bilirubin,Total 0.4 mg/dl (0.2-1); Globulin 3.8 gm/dl (2.5-4.0); Total Protein 5.2 gm/dl (6.4-8.2); Troponin I < 0.015 ng/ml (0-0.045)
[2019-06-08] MEDS ORDERED: SODIUM CHLORIDE 0.9% 1000ML 1,000 ML IV ONE (19:11)
[2019-06-08] MEDS ORDERED: OPTIRAY 320 125ml IV PRN (19:49)
--- NOTE | 2019-06-08 20:00 | CT Scan Report ---
CT ANGIOGRAM OF THE CHEST CLINICAL HISTORY: Tachycardia. COMPARISON STUDY: Chest CT scans dated 05/17/2019 and 08/28/2011. TECHNIQUE: Following the IV administration of 120 cc of Optiray 320, CT angiogram of the chest was pe rformed from the upper abdomen to the thoracic inlet utilizing the pulmonary embolus protocol. Images are reviewed in the axial, sagittal, and coronal planes. 3-D MIPS images are created and assessed. I V contrast was administered without complication. A dose lowering technique was utilized adhering to the principles of ALARA. The examination is degraded by motion artifact. CT DOSE: 269.81 mGycm FINDINGS: Thyroid: Imaged portions of the thyroid gland are normal in size and attenuation. There are subcentim eter low-attenuation thyroid nodules. Thoracic aorta: There is mild atherosclerotic calcification of the thoracic aorta, which is normal in caliber and demonstrates bovine variant arch anatomy. No dissection is seen. Pulmonary vasculature: The pulmonary trunk is normal in caliber. There is nonocclusive thrombus prese nt within the distal main pulmonary arteries bilaterally. Nonocclusive thrombus extends into all loba r branches into the distal segmental branches. Heart: The heart is normal in size and configuration, and without pericardial effusion. Lungs and pleural spaces: Emphysematous change is noted. There is trace right pleural effusion. Patch y subpleural groundglass opacities are again seen in the left upper lobe and in the left lower lobe. There is also linear scarring in the anterior left upper lobe. These findings have significantly impr derian from previous and likely represents evolving pulmonary infarcts. Additional foci of mild patchy consolidative change at both lung bases is new from previous. The trachea and central airways are idania ar. Mediastinum: There is no mediastinal lymphadenopathy. Natali: Clear. Axillae: There is no axillary lymphadenopathy. Upper abdomen: Postoperative change is consistent with previous gastric bypass surgery. A small hiata l hernia is noted. Cholecystectomy clips are seen in the right upper quadrant. The visualized pancrea s is atrophic. Skeletal structures: No lytic or blastic bony lesions are seen. Degenerative change and hyperkyphosis are noted in the thoracic spine. IMPRESSION: 1. Bilateral pulmonary emboli as above. The burden of thrombus has decreased from 05/17/2019. 2. Evolving pulmonary infarcts as above. 3. Mild emphysema. 4. New foci of patchy groundglass consolidation are present at both lung bases and there is a trace r ight pleural effusion. Correlate clinically for evidence of a mild superimposed infectious/inflammato ry pneumonitis. 5. Additional findings as above. Electronically signed by: Devin Aguirre M.D. 06/08/2019 7:58 PM
[2019-06-08] MEDS ORDERED: CEFEPIME 2,000 MG/20 ML VIAL IV STA (20:01)
--- NOTE | 2019-06-08 20:01 | Emergency Department Note ---
Entered by Antoni Traore acting as a scribe for History of Present Illness General Chief complaint: Tachycardia Stated complaint: REF BY DR TACHYCARDIC Time Seen by Provider: 06/08/19 16:57 Source: patient Limitations: no limitations History of Present Illness Onset (ago): week(s) 1 Location: abdomen Pain Consistency: + constant Maximum Pain Intensity: 6 Quality: + other (cramping) Associated symptoms: + denies other symptoms (urinary symptoms, blood in vomit, blood in diarrhea, weight loss), + loss of appetite and + other (upset stomach, diarrhea, ) The patient is a 59 year old female who presents to the Emergency Room with complaints of weakness and tachycardia starting a week ago. The patient states she had a blood clot about 3 weeks ago. She states her pulmonary artery was about 90% blocked. She notes she was put on Coumadin at that time and was sent to [facility]. She states she was discharged from [facility] about a week ago. The patient's notes the patient had an INR of 1.1 last week. He states the patient's INR was normal when she left [facility]. The patient states she has not had an appetite since being discharged from [facility]. She states she lost 7 pounds in a week. She notes she has had nausea, vomiting, and diarrhea. She notes she has an upset stomach. She states she has been having cramping. The patient denies having urinary symptoms, blood in her vomit or diarrhea, fevers, and coughing more than usual. She states she saw gastroenterology today and she had a pulse at 125 BPM an hour ago--she was referred to the ED. She states she is supposed to see a in store banker tomorrow. Home Medications Home Medications Medication Instructions Recorded Confirmed Type albuterol sulfate [Ventolin HFA] 2 puff INHALATION QID 01/04/18 06/08/19 History gabapentin 100 mg PO TID 01/04/18 06/08/19 History omeprazole 20 mg PO BID 01/04/18 06/08/19 History cyanocobalamin (vitamin B-12) 1,000 mcg IM MONTHLY 03/24/18 06/08/19 History potassium chloride 20 meq PO QAM 09/23/18 06/08/19 History cholecalciferol (vitamin D3) 2,000 unit PO BID 11/20/18 06/08/19 History [Vitamin D3] nystatin 1 applic TOPICAL TID PRN 11/20/18 06/08/19 History ondansetron HCl 4 mg PO Q8H PRN 11/20/18 06/08/19 History thiamine HCl (vitamin B1) 100 mg PO BID 11/20/18 06/08/19 History buspirone 10 mg PO HS 04/26/19 06/08/19 History mirtazapine 45 mg PO HS 04/26/19 06/08/19 History venlafaxine 75 mg PO BID 04/26/19 06/08/19 History pediatric multivitamin no.76 1 tab PO BID tab 04/30/19 06/08/19 History calcium citrate 200 mg PO BID 05/17/19 06/08/19 History magnesium 100 mg PO DAILY 05/17/19 06/08/19 History vitamin A 10,000 unit PO DAILY 05/17/19 06/08/19 History midodrine 10 mg PO TID@0800,1200,1700 #30 tab 05/25/19 06/08/19 Rx warfarin [Coumadin] 2 mg PO DAILY@1600 30 Days #30 tab 05/25/19 06/08/19 Rx zinc sulfate 220 mg PO QAM 30 Days #30 cap 05/25/19 06/08/19 Rx Allergies Allergy/AdvReac Type Severity Reaction Status Date / Time codeine Allergy Intermediate Diarrhea/Ra Verified 06/08/19 17:42 sh duloxetine Allergy Intermediate Crawling Verified 06/08/19 17:42 out of her skin sensation NSAIDS (Non-Steroidal Allergy Unknown None Verified 06/08/19 17:42 Anti-Inflamma Bactrim AdvReac Intermediate DELIRIUM Verified 12/28/17 19:46 clonazepam AdvReac Intermediate Syncope Verified 06/08/19 17:42 hydrocodone AdvReac Intermediate Over Verified 06/08/19 17:42 sedated hydromorphone AdvReac Intermediate Weakness Verified 06/08/19 17:42 and sweating sulfamethoxazole AdvReac Intermediate DELIRIUM Verified 06/08/19 17:42 trimethoprim AdvReac Intermediate DELIRIUM Verified 06/08/19 17:42 aspirin AdvReac Mild STOMACH Verified 06/08/19 17:42 IRRITATION cephalexin AdvReac Mild GI SYMPTOMS Verified 06/08/19 17:42 Past Med/Surg History Medical History Anxiety (Chronic) Cardiac murmur (Chronic) faint CHF (congestive heart failure) (Chronic) hx of Chronic back pain (Chronic) Chronic kidney disease, stage 3 (Chronic) 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 the 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 Chronic obstructive pulmonary disease (Chronic) inhaler prn Congestive heart failure, unspecified (Chronic 08/09/12) "echo 03/25/13-grade 1 diastolic dysfunction with mild concentric LVH" Degenerative disc disease (Chronic) Dyslipidemia (Chronic) Dysphagia (Chronic) Elevated liver enzymes (Chronic) per pt currently elevated Fatty liver (Chronic) Fibromyalgia (Chronic) GERD (gastroesophageal reflux disease) (Chronic) Hematoma of right lower extremity (Resolved) History of gastric ulcer (Chronic) Marijuana abuse (Resolved) Opiate abuse, continuous (Resolved) Organic sleep disorder (Chronic) Osteoarthritis (Chronic) Osteoarthritis (Chronic) Peripheral arterial disease (Chronic) Spinal stenosis (Chronic) Traumatic open wound of left lower leg (Acute) Traumatic open wound of right lower leg (Acute) Traumatic wound (Resolved) Venous stasis ulcer (Resolved) Surgical History Gastric bypass status for obesity (Chronic) H/O arthroscopic knee surgery (Chronic) "R knee; 1998" History of arthroscopy of right knee (Chronic) History of cholecystectomy (Chronic) History of colonoscopy (Chronic) History of esophagogastroduodenoscopy (EGD) (Chronic) History of repair of hiatal hernia (Chronic) History of tooth extraction (Chronic) History of wisdom tooth extraction (Chronic) Hx of appendectomy (Chronic) Hx of gastric bypass (Chronic) Hx of repair of right rotator cuff (Chronic) S/P bronchoscopy (Chronic) Status post repair of paraesophageal diaphragmatic hernia (Chronic) "Dr. Shay [facility] 01/20/17" Family History Other Family history not known due to adoption Social History Preferred Language: French Communication Ability: Effective Visual Impairment: No Limitations Hearing Ability: Normal Dispute Resolution Analyst Required: No Beliefs That Will Affect Care: None marital status: Current Living Situation: Family Current Living Situation Comment: lives with fiance current occupational status: unemployed Feels Safe at Home: Yes Smoking Status: Current every day smoker Tobacco Type: cigarettes ; Cigarettes Per Day: 1ppd ; Second Hand Exposure: Yes (father smokes) ; Hx Alcohol Use: No Hx Substance Use: No during the past year weight has: other Review of Systems See HPI for pertinent positives & negatives. and A total of 10 systems reviewed and were otherwise negative Physical Exam Vital Signs Vital Signs - 24 hr 06/08/19 15:57 06/08/19 17:30 06/08/19 19:08 Temperature 37.2 C Temperature Source Oral Pulse Rate 107 H Pulse Rate [Finger] 103 H 100 H Respiratory Rate 16 19 21 Respiratory Effort / Characteristics Non-Labored Spontaneous Blood Pressure 102/68 Blood Pressure [Right Arm] 96/65 L 78/49 L Blood Pressure Mean 79 Blood Pressure Mean [Right Arm] 75 58 Blood Pressure Position Sitting Pulse Oximetry 98 97 97 Oxygen Delivery Method Room Air Room Air Room Air Sepsis Recent Fever Within 48 Hours No Sepsis New/Unexplained Change in Mental Status No Sepsis Action Taken by Nursing No Action Required GENERAL: Patient is in no acute distress. HEENT: No acute trauma, normocephalic atraumatic, mucous membranes are dry, no nasal congestion, no scleral icterus. NECK: No stridor, no adenopathy, no meningismus, trachea is midline. LUNGS: Clear to auscultation bilaterally, no wheeze, no rhonchi, breath sounds equal. HEART: Tachycardic rate. Regular rhythm. No murmurs. ABDOMEN: Soft, nontender, bowel sounds positive, no hernias, no peritonitis. EXTREMITIES: No cyanosis or edema, full range of motion of all the joints without pain or difficulty, no signs for acute trauma. NEUROLOGIC: Oriented x 3, no acute motor or sensory deficits, no focal weakness. SKIN: No rash, no jaundice, no diaphoresis. Course Course 1657: The patient was evaluated in room C2B, and a complete history and physical examination were performed. 2002: I reevaluated the patient. I updated the patient on her labs and imaging results. I recommended hospitalization, and she is agreeable. 2029: I discussed the patient's case with Dr. Kristine Ramirez Hospitalist. He will evaluate the patient for further management. Administered Medications Ioversol (Optiray 320 125ml) 120 ml IV ONCE PRN PRN Reason: Interaction Checking Stop: 06/12/19 19:48 Last Admin: 06/08/19 19:49 Dose: 120 ml Documented by: [id number] Discontinued Medications Diphenhydramine HCl (Benadryl) 12.5 mg IV NOW STA Stop: 06/08/19 17:03 Last Admin: 06/08/19 18:04 Dose: 12.5 mg Documented by: [id number] Sodium Chloride (Nss 1000ml) 1,000 mls @ 999 mls/hr IV .Q1H1M VERO Stop: 06/08/19 18:15 Last Infusion: 06/08/19 19:06 Dose: 0 mls/hr Documented by: [id number] Admin: 06/08/19 18:05 Dose: 999 mls/hr Documented by: [id number] Acetaminophen (Ofirmev) 1,000 mg in 100 mls @ 400 mls/hr IV NOW STA Stop: 06/08/19 17:23 Last Infusion: 06/08/19 18:24 Dose: 0 mls/hr Documented by: [id number] Admin: 06/08/19 18:05 Dose: 400 mls/hr Documented by: [id number] Sodium Chloride (Nss 1000ml) 1,000 mls @ 999 mls/hr IV .Q1H1M ONE Stop: 06/08/19 20:11 Last Admin: 06/08/19 19:15 Dose: 999 mls/hr Documented by: [id number] Cefepime HCl (Maxipime) 2,000 mg in 20 mls @ 5 mls/min IV NOW STA; Protocol Stop: 06/08/19 20:04 Last Admin: 06/08/19 20:08 Dose: 5 mls/min Documented by: [id number] Ondansetron HCl (Zofran) 4 mg IV NOW STA Stop: 06/08/19 17:03 Last Admin: 06/08/19 18:04 Dose: 4 mg Documented by: [id number] Critical Care Time Critical Care Time: Yes Total Critical Care Time: 46 I have personally spent 46 minutes of critical care time in the direct management of this patient. This includes bedside care, interpretation of diagnostic studies, and testing, discussion with consultants, patient, and family members, and other required patient management activities. This 46 minut es is in excess of all separately billable procedures. Medical Decision Making Differential Diagnosis Differential Diagnosis includes but is not limited to dehydration, electrolyte imbalance, recurrent PE, dysrhythmia, [place], UTI, sepsis, and pneumonia. Medical Records Attestation: I reviewed the patient's medical records. Home Medications Current Medication List: was personally reviewed by me Laboratory Data Attestation: I reviewed the patient's lab results. Result diagrams: 06/08/19 18:18 06/08/19 18:18 Lab Results 06/08/19 06/08/19 06/08/19 Range/Units 18:18 18:18 18:18 WBC 8.73 (4.8-10.8) K/uL RBC 2.86 L (4.2-5.4) M/uL Hgb 9.8 L (12.0-16.0) g/dL Hct 29.7 L (37-47) % MCV 103.8 H (80-100) fL MCH 34.3 H (25-34) pg MCHC 33.0 (32-36) g/dL RDW Std Deviation 62.6 H (36.4-46.3) fL RDW Coeff of Liz 16.6 H (11.5-14.5) % Plt Count 309 (130-400) K/uL MPV 9.2 (7.4-10.4) fL Immature Gran % (Auto) 0.2 % Neut % (Auto) 82.6 % Lymph % (Auto) 10.0 % Butler % (Auto) 6.8 % Eos % (Auto) 0.2 % Baso % (Auto) 0.2 % Immature Gran # (Auto) 0.02 (0.00-0.02) K/uL Neut # (Auto) 7.21 H (1.4-6.5) K/uL Lymph # (Auto) 0.87 L (1.2-3.4) K/uL Butler # (Auto) 0.59 (0.11-0.59) K/uL Eos # (Auto) 0.02 (0-0.5) K/uL Baso # (Auto) 0.02 (0-0.2) K/uL PT 12.2 H (9.0-12.0) Seconds INR 1.2 H (0.9-1.1) APTT 26.1 (21.0-31.0) Seconds PTT Ratio 1.0 Sodium 138 (136-145) mmol/L Potassium 4.5 (3.5-5.1) mmol/L Chloride 110 H (98-107) mmol/L Carbon Dioxide 26 (21-32) mmol/L Anion Gap 3.0 (3-11) BUN 10 (7-18) mg/dl Creatinine 0.71 (0.6-1.2) mg/dl Est Cr Clr Drug Dosing Not Reportable Est GFR ( Amer) 108.1 Est GFR (Non-Af Amer) 93.2 BUN/Creatinine Ratio 14.4 (10-20) Glucose 69 L (70-99) mg/dl Lactate (0.4-2.0) mmol/L Calcium 8.0 L (8.5-10.1) mg/dl Magnesium 1.8 (1.8-2.4) mg/dl Total Bilirubin 0.4 (0.2-1) mg/dl AST 15 (15-37) U/L ALT 19 (12-78) U/L Alkaline Phosphatase 147 H (45-117) U/L Troponin I < 0.015 (0-0.045) ng/ml Total Protein 5.2 L (6.4-8.2) gm/dl Albumin 1.4 L (3.4-5.0) gm/dl Globulin 3.8 (2.5-4.0) gm/dl Albumin/Globulin Ratio 0.4 L (0.9-2) TSH 4.350 (0.300-4.500) uIu/ml 06/08/19 Range/Units 18:18 WBC (4.8-10.8) K/uL RBC (4.2-5.4) M/uL Hgb (12.0-16.0) g/dL Hct (37-47) % MCV (80-100) fL MCH (25-34) pg MCHC (32-36) g/dL RDW Std Deviation (36.4-46.3) fL RDW Coeff of Liz (11.5-14.5) % Plt Count (130-400) K/uL MPV (7.4-10.4) fL Immature Gran % (Auto) % Neut % (Auto) % Lymph % (Auto) % Butler % (Auto) % Eos % (Auto) % Baso % (Auto) % Immature Gran # (Auto) (0.00-0.02) K/uL Neut # (Auto) (1.4-6.5) K/uL Lymph # (Auto) (1.2-3.4) K/uL Butler # (Auto) (0.11-0.59) K/uL Eos # (Auto) (0-0.5) K/uL Baso # (Auto) (0-0.2) K/uL PT (9.0-12.0) Seconds INR (0.9-1.1) APTT (21.0-31.0) Seconds PTT Ratio Sodium (136-145) mmol/L Potassium (3.5-5.1) mmol/L Chloride (98-107) mmol/L Carbon Dioxide (21-32) mmol/L Anion Gap (3-11) BUN (7-18) mg/dl Creatinine (0.6-1.2) mg/dl Est Cr Clr Drug Dosing Est GFR ( Amer) Est GFR (Non-Af Amer) BUN/Creatinine Ratio (10-20) Glucose (70-99) mg/dl Lactate 1.6 (0.4-2.0) mmol/L Calcium (8.5-10.1) mg/dl Magnesium (1.8-2.4) mg/dl Total Bilirubin (0.2-1) mg/dl AST (15-37) U/L ALT (12-78) U/L Alkaline Phosphatase (45-117) U/L Troponin I (0-0.045) ng/ml Total Protein (6.4-8.2) gm/dl Albumin (3.4-5.0) gm/dl Globulin (2.5-4.0) gm/dl Albumin/Globulin Ratio (0.9-2) TSH (0.300-4.500) uIu/ml Imaging Data Radiologist's Impression: Radiology results as stated below per my review and the radiologist's interpretation: SINGLE VIEW CHEST CLINICAL HISTORY: Atypical chest pain. FINDINGS: An AP, portable, upright chest radiograph is compared to study dated 05/23/2019 and correlated with chest CT dated 05/17/2019. The examination is degraded by portable technique and patient rotation. The cardiomediastinal silhouette is unremarkable noting atherosclerotic calcification of the thoracic. Advanced emphysema and chronic interstitial thickening are similar to previous. Foci of parenchyma scarring are unchanged. There is chronic elevation of right hemidiaphragm. No airspace consolidation or large pleural effusion is identified. No pneumothorax is seen. The skeletal structures are osteopenic. The bony thorax is grossly intact. Cholecystectomy clips are seen in the right upper quadrant. IMPRESSION: Advanced emphysematous change with no acute cardiopulmonary abnormality. ACT 112: Negative or not required by law. Electronically signed by: Devin Aguirre M.D. 06/08/2019 5:[address] ANGIOGRAM OF THE CHEST CLINICAL HISTORY: Tachycardia. COMPARISON STUDY: Chest CT scans dated 05/17/2019 and 08/28/2011. TECHNIQUE: Following the IV administration of 120 cc of Optiray 320, CT angiogram of the chest was performed from the upper abdomen to the thoracic inlet utilizing the pulmonary embolus protocol. Images are reviewed in the axi al, sagittal, and coronal planes. 3-D MIPS images are created and assessed. IV contrast was administered without complication. A dose lowering technique was utilized adhering to the principles of ALARA. The examination is degraded by motion artifact. CT DOSE: 269.81 mGycm FINDINGS: Thyroid: Imaged portions of the thyroid gland are normal in size and attenuation. There are subcentimeter low-attenuation thyroid nodules. Thoracic aorta: There is mild atherosclerotic calcification of the thoracic aorta, which is normal in caliber and demonstrates bovine variant arch anatomy. No dissection is seen. Pulmonary vasculature: The pulmonary trunk is normal in caliber. There is nonocclusive thrombus present within the distal main pulmonary arteries bilaterally. Nonocclusive thrombus extends into all lobar branches into the distal segmental branches. Heart: The heart is normal in size and configuration, and without pericardial effusion. Lungs and pleural spaces: Emphysematous change is noted. There is trace right pleural effusion. Patchy subpleural groundglass opacities are again seen in the left upper lobe and in the left lower lobe. There is also linear scarring in the anterior left upper lobe. These findings have significantly improved from previous and likely represents evolving pulmonary infarcts. Additional foci of mild patchy consolidative change at both lung bases is new from previous. The trachea and central airways are clear. Mediastinum: There is no mediastinal lymphadenopathy. Natali: Clear. Axillae: There is no axillary lymphadenopathy. Upper abdomen: Postoperative change is consistent with previous gastric bypass surgery. A small hiatal hernia is noted. Cholecystectomy clips are seen in the right upper quadrant. The visualized pancreas is atrophic. Skeletal structures: No lytic or blastic bony lesions are seen. Degenerative change and hyperkyphosis are noted in the thoracic spine. IMPRESSION: 1. Bilateral pulmonary emboli as above. The burden of thrombus has decreased from 05/17/2019. 2. Evolving pulmonary infarcts as above. 3. Mild emphysema. 4. New foci of patchy groundglass consolidation are present at both lung bases and there is a trace right pleural effusion. Correlate clinically for evidence of a mild superimposed infectious/inflammatory pneumonitis. 5. Additional findings as above. Electronically signed by: Devin Aguirre M.D. 06/08/2019 7:58 PM ECG Data Attestation: I personally reviewed and interpreted this ECG as follows: Indication: + tachycardia Rate (beats per minute): 103 ECG Intervals/blocks: + Normal QT-c (at 466) ECG ST segments: no ST elevation ECG Findings: no PVCs Blood Pressure Blood Pressure Findings: Low blood pressure Blood Pressure Disposition: further management by hospitalist [facility] Narrative There is no leukocytosis. The patient is anemic but this is baseline looking back at previous testing. There was a normal platelet count. INR was subtherapeutic for someone on Coumadin at 1.2. No significant electrolyte abn ormality or kidney failure. No concerning liver enzyme elevation. The albumin was low consistent with malnutrition. The patient appeared to be in a euthyroid state. EKG showed a sinus tachycardia, no acute ischemia. Cardiac enzyme testing x1 is not consistent with acute cardiac injury. Lactic acid level was not elevated making sepsis less likely. Blood cultures are pending. Chest film did not show pneumonia or CHF, chronic findings were seen. Chest CT shows a decrease in the clot burden, a questionable pneumonia was noted. The patient received IV saline, 2 L were given. She received IV Zofran for nausea, IV Benadryl for nausea, she was given IV Tylenol for complaints of a headache. She received IV cefepime as empiric antibiotic/sepsis coverage. The patient presents with tachycardia, dizziness and weakness. She is somewhat hypotensive and I do think quite dehydrated and malnourished. Pneumonia/infection is a concern. Hospitalization is warranted. I spoke to the patient and family preservation caseworker. The on-call hospitalist was consulted. Continuous Cardiac Monitoring: An order was placed for continuous cardiac monitoring. The monitor shows a rate of 102 with a sinus tachycardia Impression & Plan Hypotension, Pulmonary emboli, Tachycardia, Pneumonia, Dehydration Discharge Plan Visit Data Chief Complaint: Tachycardia Stated Complaint: REF BY , TACHYCARDIC ED Provider: Devin Costa Discharge Problem: Hypotension, Pulmonary emboli, Tachycardia, Pneumonia, Dehydration Patient Disposition: Being Evaluated by Hospitalist Forms Stand Alone Forms: [facility] Prescriptions Prescriptions: No Action gabapentin 100 mg Capsule 100 mg PO TID RF: 0 omeprazole 20 mg Capsule,Delayed Release(Dr/Ec) 20 mg PO BID RF: 0 albuterol sulfate [Ventolin HFA] 90 mcg/actuation Hfa Aerosol Inhaler 2 puff INHALATION QID RF: 0 potassium chloride 20 mEq tablet,ER particles/crystals 20 meq PO QAM RF: 0 ondansetron HCl 4 mg Tablet 4 mg PO Q8H PRN (Reason: Nausea) RF: 0 thiamine HCl (vitamin B1) 100 mg Tablet 100 mg PO BID RF: 0 nystatin 100,000 unit/gram Powder 1 applic TOPICAL TID PRN (Reason: Rash) RF: 0 cholecalciferol (vitamin D3) [Vitamin D3] 2,000 unit Capsule 2,000 unit PO BID RF: 0 vitamin A 10,000 unit Capsule 10,000 unit PO DAILY RF: 0 magnesium 200 mg Tablet 100 mg PO DAILY RF: 0 calcium citrate 200 mg (950 mg) Tablet 200 mg PO BID RF: 0 warfarin [Coumadin] 2 mg Tablet 2 mg PO DAILY@1600 30 Days Qty: 30 RF: 0 midodrine 10 mg Tablet 10 mg PO TID@0800,1200,1700 Qty: 30 RF: 0 zinc sulfate 220 (50) mg Capsule 220 mg PO QAM 30 Days Qty: 30 RF: 0 cyanocobalamin (vitamin B-12) 1,000 mcg/mL Solution 1,000 mcg IM MONTHLY RF: 0 venlafaxine 75 mg tablet 75 mg PO BID RF: 0 buspirone 10 mg tablet 10 mg PO HS RF: 0 mirtazapine 45 mg tablet 45 mg PO HS RF: 0 Flintstones Complete tablet,chewable 1 tab PO BID RF: 0 Referrals Referrals: Kvng Ceron DO [Primary Care Provider] - Discharge Problem: Hypotension Qualifiers: Hypotension type: unspecified hypotension type Qualified Code(s): I95.9 - Hypotension, unspecified Pulmonary emboli Qualifiers: Pulmonary embolism type: unspecified Chronicity: unspecified Acute cor pulmonale presence: unspecified Qualified Code(s): I26.99 - Other pulmonary embolism without acute cor pulmonale Pneumonia Qualifiers: Pneumonia type: due to unspecified organism Laterality: unspecified laterality Lung location: unspecified part of lung Qualified Code(s): J18.9 - Pneumonia, unspecified organism The scribe's documentation has been prepared under my direction and personally r eviewed by me in its entirety. I confirm that the note above accurately reflects all work, treatment, procedures, and medical decision making performed by me.
[2019-06-08] MEDS ORDERED: LACTATED RINGER'S 1,000 ML IV ONE (20:09)
--- NOTE | 2019-06-08 22:11 | History & Physical Report ---
Date of Service June 08, 2019 Assessment & Plan (1) Nausea and vomiting: This is a 59-year-old female with a PMH of gastric bypass in 2014, anxiety, depression, hypertension, fibromyalgia, chronic diastolic heart failure, alcohol and tobacco use and other medical problems listed below who presents with intermittent nausea, vomiting and diarrhea for the past week. -Intermittent nausea and vomiting since discharge home from [facility] -In setting of poor PO intake, heavy alcohol use -Flu PCR negative -IV fluids, antiemetics (2) Diarrhea: Intermittent, worsening. C diff pending (3) Hospital acquired PNA: Recently hospitalized for submassive PE and cor pulmonale -Has since developed cough. Chest CTA with new foci of patchy groundglass consolidation are present at both lung bases and there is a trace right pleural effusion -Possible aspiration pneumonitis in the setting of chronic alcohol use, vomiting -Cover with Zosyn empirically for now (4) Pulmonary emboli: Recently admitted to our service in mid May for extensive pulmonary embolism and acute cor pulmonale. Initially placed on IV heparin, then Lovenox and discharged to [facility] on Coumadin -INR of 1.1 today. Was directed to take 4mg coumadin but has not yet taken -Chest CTA with bilateral pulmonary emboli as above. The burden of thrombus has decreased from 05/17/2019. Also with evolving pulmonary infarcts as above -Will require bridge (5) Hypotension: In setting of CHF -Continue Midodrine - missed noontime and evening doses today (6) Severe protein-calorie malnutrition: Follows with nutrition and weight management. Plan for follow-up in [place] for possible PEG tube -Continue boost daily, may benefit from nutrition consult here (7) Malnutrition following gastrointestinal surgery: Continue vitamin A, vitamin D, monthly B12 injections, thiamine (8) Wound of left lower extremity: Traumatic wound from falling last month -Has been following with wound care clinic -Will need wound care consult while in-patient (9) Alcohol abuse: Denies drinking but per boyfriend, sipping on 8-10oz vodka daily -Discussed likelihood of this contributing to decreased appetite and weight loss at Nutrition & Weight Management appt today- patient not interested in cessation (10) Tobacco use disorder: Smoking 1.5 ppd. Offered nicotine patch but not interested DVT Ppx: Subtherapeutic INR on coumadin - will require bridging Code status: FULL PCP: Jie Patient seen in collaboration with Dr. Carmona. Please see addendum for full plan details. History of Present Illness Chief Complaint: Nausea, vomiting, diarrhea Primary Care Provider: Kvng Ceron, This is a 59-year-old female with a PMH of gastric bypass in 2013, anxiety, depression, hypertension, fibromyalgia, chronic diastolic heart failure, alcohol and tobacco use and other medical problems listed below who presents with intermittent nausea, vomiting and diarrhea for the past week. Patient was recently admitted to our service in mid May for extensive pulmonary embolism and acute cor pulmonale. Was initially placed on IV heparin and then transition to Lovenox and discharged to [facility] on Coumadin. Patient was discharged home approximately 1 week ago and has since developed intermittent nausea, vomiting and diarrhea. States that she has been nauseous for majority of the time with poor PO intake. Has been trying to drink 1 boost a day but does not like the taste. Reports 2 episodes of vomiting. Also reports worsening diarrhea, but has had diarrhea intermittently for the past few months. Has developed dry cough. Was seen by nutrition and weight management at [facility] today due to severe protein calorie malnutrition and continued weight loss. Noted to be tachycardic in the 120s, appears dehydrated and smell of alcohol, so was directed to the ED for further evaluation. Patient denies drinking but per conversation with boyfriend, patient is sipping 8 to 10 ounces of vodka daily. Plans to be evaluated at [place] for possible PEG for enteral nutrition. Currently endorsing nausea and headache. Denies fever, chills, lightheadedness, visual changes, chest pain, palpitations, SOB, vomiting, abdominal pain, dysuria or constipation. Allergies Allergy/AdvReac Type Severity Reaction Status Date / Time codeine Allergy Intermediate Diarrhea/Ra Verified 06/08/19 17:42 sh duloxetine Allergy Intermediate Crawling Verified 06/08/19 17:42 out of her skin sensation NSAIDS (Non-Steroidal Allergy Unknown None Verified 06/08/19 17:42 Anti-Inflamma Bactrim AdvReac Intermediate DELIRIUM Verified 12/28/17 19:46 clonazepam AdvReac Intermediate Syncope Verified 06/08/19 17:42 hydrocodone AdvReac Intermediate Over Verified 06/08/19 17:42 sedated hydromorphone AdvReac Intermediate Weakness Verified 06/08/19 17:42 and sweating sulfamethoxazole AdvReac Intermediate DELIRIUM Verified 06/08/19 17:42 trimethoprim AdvReac Intermediate DELIRIUM Verified 06/08/19 17:42 aspirin AdvReac Mild STOMACH Verified 06/08/19 17:42 IRRITATION cephalexin AdvReac Mild GI SYMPTOMS Verified 06/08/19 17:42 Home Medications Home Medications Medication Instructions Recorded Confirmed Type albuterol sulfate [Ventolin HFA] 2 puff INHALATION QID PRN 01/04/18 06/08/19 History gabapentin 100 mg PO TID 01/04/18 06/08/19 History omeprazole 20 mg PO BID 01/04/18 06/08/19 History cyanocobalamin (vitamin B-12) 1,000 mcg IM MONTHLY 03/24/18 06/08/19 History potassium chloride 20 meq PO QAM 09/23/18 06/08/19 History cholecalciferol (vitamin D3) 2,000 unit PO BID 11/20/18 06/08/19 History [Vitamin D3] nystatin 1 applic TOPICAL TID PRN 11/20/18 06/08/19 History ondansetron HCl 4 mg PO Q8H PRN 11/20/18 06/08/19 History thiamine HCl (vitamin B1) 100 mg PO BID 11/20/18 06/08/19 History buspirone 10 mg PO BID 04/26/19 06/08/19 History mirtazapine 45 mg PO HS 04/26/19 06/08/19 History venlafaxine 75 mg PO TID 04/26/19 06/08/19 History pediatric multivitamin no.76 1 tab PO BID tab 04/30/19 06/08/19 History calcium citrate 200 mg PO BID 05/17/19 06/08/19 History magnesium 100 mg PO DAILY 05/17/19 06/08/19 History vitamin A 10,000 unit PO DAILY 05/17/19 06/08/19 History midodrine 10 mg PO TID@0800,1200,1700 #30 tab 05/25/19 06/08/19 Rx warfarin [Coumadin] 2 mg PO DAILY@1600 30 Days #30 tab 05/25/19 06/08/19 Rx zinc sulfate 220 mg PO QAM 30 Days #30 cap 05/25/19 06/08/19 Rx acetaminophen 650 mg PO QID PRN 06/08/19 06/08/19 History Past Med/Surg History Medical History (Updated 06/08/19 @ 22:47 by Angeline Peterson PA-C) Anxiety (Chronic) Cardiac murmur (Chronic) faint CHF (congestive heart failure) (Chronic) hx of Chronic back pain (Chronic) Chronic diastolic (congestive) heart failure Chronic kidney disease, stage 3 (Chronic) no hole puncher strap at the moment Chronic obstructive pulmonary disease (Chronic) inhaler prn Congestive heart failure, unspecified (Chronic 08/09/12) "echo 03/25/13-grade 1 diastolic dysfunction with mild concentric LVH" Degenerative disc disease (Chronic) Dyslipidemia (Chronic) Dysphagia (Chronic) Elevated liver enzymes (Chronic) per pt currently elevated Fatty liver (Chronic) Fibromyalgia (Chronic) GERD (gastroesophageal reflux disease) (Chronic) Hematoma of right lower extremity (Resolved) History of gastric ulcer (Chronic) Marijuana abuse (Resolved) Opiate abuse, continuous (Resolved) Organic sleep disorder (Chronic) Osteoarthritis (Chronic) Osteoarthritis (Chronic) Peripheral arterial disease (Chronic) Severe protein-calorie malnutrition Spinal stenosis (Chronic) Traumatic open wound of left lower leg (Acute) Traumatic open wound of right lower leg (Acute) Traumatic wound (Resolved) Venous stasis ulcer (Resolved) Surgical History Gastric bypass status for obesity (Chronic) H/O arthroscopic knee surgery (Chronic) "R knee; 1998" History of arthroscopy of right knee (Chronic) History of cholecystectomy (Chronic) History of colonoscopy (Chronic) History of esophagogastroduodenoscopy (EGD) (Chronic) History of repair of hiatal hernia (Chronic) History of tooth extraction (Chronic) History of wisdom tooth extraction (Chronic) Hx of appendectomy (Chronic) Hx of gastric bypass (Chronic) Hx of repair of right rotator cuff (Chronic) S/P bronchoscopy (Chronic) Status post repair of paraesophageal diaphragmatic hernia (Chronic) [place] [facility] [place] Family History Other Family history not known due to adoption Social History Preferred Language: Serbian Communication Ability: Effective Visual Impairment: No Limitations Hearing Ability: Normal Disposal Worker Required: No Beliefs That Will Affect Care: None marital status: Current Living Situation: Significant Other Current Living Situation Comment: lives with fikevin current occupational status: unemployed Other Information That Helps Us Care for You: No Feels Safe at Home: Yes Safety Concerns: Feels Safe At This Time Smoking Status: Current every day smoker Tobacco Type: cigarettes ; packs per day: 1.5 ; Cigarettes Per Day: Pack ; Do You Dip or Chew Tobacco: No ; Second Hand Exposure: Yes (father smokes) ; Tobacco Cessation Education Requested by Patient: No Hx Alcohol Use: Yes Alcohol type: hard liquor Alcohol type Comment: patient denies but boyfriend stating she "sips" 8-10 oz vodka daily Alcohol Intake Frequency: Holidays/Special Occasions Hx Substance Use: No during the past year weight has: other Review of Systems Review of Systems: At least ten systems reviewed and negative except as noted in the HPI. Physical Exam Physical Exam: General Appearance: WD/WN, vitals as above, appears frail and chronically ill, lying in bed, conversing easily Head: normocephalic, atraumatic Eyes: normal inspection, PERRL, conjunctivae normal, anicteric sclerae ENT: external ear and nose normal, oropharynx with dry mucous membranes Neck: trachea midline, no thyromegaly normal visual inspection Respiratory: normal respiratory effort, lungs sounds coarse but no wheezing or rales noted. Normal insp/exp effort, no accessory muscle use Cardiovascular: regular rate, rhythm, no murmur, normal peripheral pulses. Vessels: no JVD or carotid bruit Chest: normal inspection of chest Abdomen/GI: normal bowel sounds, soft, nontender, no hepatosplenomegaly Extremities/Musculoskelatal: no cyanosis or clubbing, extremities motor strength 5/5. LLE with healing wound with minimal drainage, no surrounding erythema Neurologic: PERRL, EOMI, accommodation nl, no face palsy, no dysarthria, CN's II-XI intact bilaterally and moves all extremities Psychiatric: A+Ox3, agitated Skin: no rashes, normal color, warm/dry Results & Data Vital Signs (Past 12 Hours) Vital Signs Temp Pulse Pulse Resp BP BP Pulse Ox 06/08/19 21:15 102 H 20 90/57 L 100 06/08/19 21:01 101 H 22 06/08/19 21:00 99 H 16 87/58 L 02 20:50 99 H 20 100 06/08/19 20:45 94 H 29 H 94/61 L 100 06/08/19 20:40 95 H 24 100 06/08/19 20:31 97 H 25 H 99 06/08/19 20:30 95 H 30 H 97/59 L 99 06/08/19 20:20 92 H 23 98 06/08/19 20:15 91 H 22 87/55 L 98 06/08/19 20:10 94 H 16 99 06/08/19 20:01 91 H 16 99 06/08/19 20:00 91 H 13 84/48 L 98 06/08/19 19:51 90 26 H 97 06/08/19 19:50 94 H 20 81/46 L 95 06/08/19 19:49 93 H 27 H 96 06/08/19 19:19 99 H 23 80/50 L 98 06/08/19 19:15 99 H 18 80/50 L 97 06/08/19 19:14 103 H 23 81/51 L 97 06/08/19 19:11 100 H 17 97 06/08/19 19:10 99 H 18 79/51 L 98 06/08/19 19:09 100 H 17 78/49 L 97 06/08/19 19:08 100 H 21 78/49 L 97 06/08/19 19:00 100 H 26 H 98 06/08/19 18:50 105 H 18 100 06/08/19 18:40 105 H 18 99 06/08/19 18:31 102 H 7 L 98 06/08/19 18:30 105 H 21 96/58 L 99 06/08/19 18:20 102 H 18 100 06/08/19 18:10 103 H 19 100 06/08/19 18:01 104 H 18 100 06/08/19 18:00 102 H 13 95/64 L 100 06/08/19 17:50 99 H 19 100 06/08/19 17:40 97 H 21 100 06/08/19 17:38 101 H 24 06/08/19 17:30 101 H 103 H 17 96/65 L 96/65 L 100 06/08/19 15:57 37.2 C 107 H 16 102/68 98 Laboratory Results Short CBC 06/08/19 06/08/19 06/08/19 Range/Units 18:18 18:18 18:18 WBC 8.73 (4.8-10.8) K/uL RBC 2.86 L (4.2-5.4) M/uL Hgb 9.8 L (12.0-16.0) g/dL Hct 29.7 L (37-47) % MCV 103.8 H (80-100) fL MCH 34.3 H (25-34) pg MCHC 33.0 (32-36) g/dL RDW Std Deviation 62.6 H (36.4-46.3) fL RDW Coeff of Liz 16.6 H (11.5-14.5) % Plt Count 309 (130-400) K/uL MPV 9.2 (7.4-10.4) fL Immature Gran % (Auto) 0.2 % Neut % (Auto) 82.6 % Lymph % (Auto) 10.0 % [place] % (Auto) 6.8 % Eos % (Auto) 0.2 % Baso % (Auto) 0.2 % Immature Gran # (Auto) 0.02 (0.00-0.02) K/uL Neut # (Auto) 7.21 H (1.4-6.5) K/uL Lymph # (Auto) 0.87 L (1.2-3.4) K/uL [place] # (Auto) 0.59 (0.11-0.59) K/uL Eos # (Auto) 0.02 (0-0.5) K/uL Baso # (Auto) 0.02 (0-0.2) K/uL PT 12.2 H (9.0-12.0) Seconds INR 1.2 H (0.9-1.1) APTT 26.1 (21.0-31.0) Seconds PTT Ratio 1.0 Sodium 138 (136-145) mmol/L Potassium 4.5 (3.5-5.1) mmol/L Chloride 110 H (98-107) mmol/L Carbon Dioxide 26 (21-32) mmol/L Anion Gap 3.0 (3-11) BUN 10 (7-18) mg/dl Creatinine 0.71 (0.6-1.2) mg/dl Est Cr Clr Drug Dosing Not Reportable Est GFR ( Amer) 108.1 Est GFR (Non-Af Amer) 93.2 BUN/Creatinine Ratio 14.4 (10-20) Glucose 69 L (70-99) mg/dl POC Glucose (70-99) mg/dl Lactate (0.4-2.0) mmol/L Calcium 8.0 L (8.5-10.1) mg/dl Magnesium 1.8 (1.8-2.4) mg/dl Total Bilirubin 0.4 (0.2-1) mg/dl AST 15 (15-37) U/L ALT 19 (12-78) U/L Alkaline Phosphatase 147 H (45-117) U/L Troponin I < 0.015 (0-0.045) ng/ml Total Protein 5.2 L (6.4-8.2) gm/dl Albumin 1.4 L (3.4-5.0) gm/dl Globulin 3.8 (2.5-4.0) gm/dl Albumin/Globulin Ratio 0.4 L (0.9-2) TSH 4.350 (0.300-4.500) uIu/ml Influenza Type A (PCR) (Neg) Influenza Type B (PCR) (Neg) 06/08/19 06/08/19 06/08/19 Range/Units 18:18 20:21 20:46 WBC (4.8-10.8) K/uL RBC (4.2-5.4) M/uL Hgb (12.0-16.0) g/dL Hct (37-47) % MCV (80-100) fL MCH (25-34) pg MCHC (32-36) g/dL RDW Std Deviation (36.4-46.3) fL RDW Coeff of Liz (11.5-14.5) % Plt Count (130-400) K/uL MPV (7.4-10.4) fL Immature Gran % (Auto) % Neut % (Auto) % Lymph % (Auto) % [place] % (Auto) % Eos % (Auto) % Baso % (Auto) % Immature Gran # (Auto) (0.00-0.02) K/uL Neut # (Auto) (1.4-6.5) K/uL Lymph # (Auto) (1.2-3.4) K/uL [place] # (Auto) (0.11-0.59) K/uL Eos # (Auto) (0-0.5) K/uL Baso # (Auto) (0-0.2) K/uL PT (9.0-12.0) Seconds INR (0.9-1.1) APTT (21.0-31.0) Seconds PTT Ratio Sodium (136-145) mmol/L Potassium (3.5-5.1) mmol/L Chloride (98-107) mmol/L Carbon Dioxide (21-32) mmol/L Anion Gap (3-11) BUN (7-18) mg/dl Creatinine (0.6-1.2) mg/dl Est Cr Clr Drug Dosing Est GFR ( Amer) Est GFR (Non-Af Amer) BUN/Creatinine Ratio (10-20) Glucose (70-99) mg/dl POC Glucose 63 L* (70-99) mg/dl Lactate 1.6 1.3 (0.4-2.0) mmol/L Calcium (8.5-10.1) mg/dl Magnesium (1.8-2.4) mg/dl Total Bilirubin (0.2-1) mg/dl AST (15-37) U/L ALT (12-78) U/L Alkaline Phosphatase (45-117) U/L Troponin I (0-0.045) ng/ml Total Protein (6.4-8.2) gm/dl Albumin (3.4-5.0) gm/dl Globulin (2.5-4.0) gm/dl Albumin/Globulin Ratio (0.9-2) TSH (0.300-4.500) uIu/ml Influenza Type A (PCR) (Neg) Influenza Type B (PCR) (Neg) 06/08/19 Range/Units 21:47 WBC (4.8-10.8) K/uL RBC (4.2-5.4) M/uL Hgb (12.0-16.0) g/dL Hct (37-47) % MCV (80-100) fL MCH (25-34) pg MCHC (32-36) g/dL RDW Std Deviation (36.4-46.3) fL RDW Coeff of Liz (11.5-14.5) % Plt Count (130-400) K/uL MPV (7.4-10.4) fL Immature Gran % (Auto) % Neut % (Auto) % Lymph % (Auto) % [place] % (Auto) % Eos % (Auto) % Baso % (Auto) % Immature Gran # (Auto) (0.00-0.02) K/uL Neut # (Auto) (1.4-6.5) K/uL Lymph # (Auto) (1.2-3.4) K/uL [place] # (Auto) (0.11-0.59) K/uL Eos # (Auto) (0-0.5) K/uL Baso # (Auto) (0-0.2) K/uL PT (9.0-12.0) Seconds INR (0.9-1.1) APTT (21.0-31.0) Seconds PTT Ratio Sodium (136-145) mmol/L Potassium (3.5-5.1) mmol/L Chloride (98-107) mmol/L Carbon Dioxide (21-32) mmol/L Anion Gap (3-11) BUN (7-18) mg/dl Creatinine (0.6-1.2) mg/dl Est Cr Clr Drug Dosing Est GFR ( Amer) Est GFR (Non-Af Amer) BUN/Creatinine Ratio (10-20) Glucose (70-99) mg/dl POC Glucose (70-99) mg/dl Lactate (0.4-2.0) mmol/L Calcium (8.5-10.1) mg/dl Magnesium (1.8-2.4) mg/dl Total Bilirubin (0.2-1) mg/dl AST (15-37) U/L ALT (12-78) U/L Alkaline Phosphatase (45-117) U/L Troponin I (0-0.045) ng/ml Total Protein (6.4-8.2) gm/dl Albumin (3.4-5.0) gm/dl Globulin (2.5-4.0) gm/dl Albumin/Globulin Ratio (0.9-2) TSH (0.300-4.500) uIu/ml Influenza Type A (PCR) Neg for Influ A (Neg) Influenza Type B (PCR) Neg for Influ B (Neg) [facility] 06/08/19 18:18 Sodium 138 Potassium 4.5 Chloride 110 H Carbon Dioxide 26 BUN 10 Creatinine 0.71 Glucose 69 L Calcium 8.0 L Cardiac Enzymes 06/08/19 Range/Units 18:18 Troponin I < 0.015 (0-0.045) ng/ml Liver Function 06/08/19 Range/Units 18:18 Total Bilirubin 0.4 (0.2-1) mg/dl AST 15 (15-37) U/L ALT 19 (12-78) U/L Alkaline Phosphatase 147 H (45-117) U/L Albumin 1.4 L (3.4-5.0) gm/dl Diagnostic Findings CXR: IMPRESSION: Advanced emphysematous change with no acute cardiopulmonary abnormality. Chest CTA: IMPRESSION: 1. Bilateral pulmonary emboli as above. The burden of thrombus has decreased from 05/17/2019. 2. Evolving pulmonary infarcts as above. 3. Mild emphysema. 4. New foci of patchy groundglass consolidation are present at both lung bases and there is a trace right pleural effusion. Correlate clinically for evidence of a mild superimposed infectious/inflammatory pneumonitis. ECG Rhythm: sinus tachycardia Supervising Physician Co-Signing Physician Notes IM ATTENDING : Patient seen and examined. History obtained from patient, family, and records. Preceding documentation by Ms. Angeline Peterson PA-C reviewed. FINAL ASSESSMENT AND PLAN as follows : H CAP, possible aspiration given gastroenteritis bout and episode of choking/esophageal dysfunction symptoms as per patient partner No sepsis Acute gastroenteritis rule out C. difficile No sepsis Recent confinement for submassive PE status post TPA on Coumadin, INR s ubtherapeutic Chronic anemia, hemoglobin better than baseline likely secondary to hemoconcentration mood disorder, at baseline hx gastric bypass hx fibromyalgia as per records History orthostatic hypotension on midodrine substance abuse/ongoing tobacco abuse/possible alcohol abuse as per records Medical telemetry given low BP and potential for alcohol withdrawal Zosyn Aspiration precautions, swallow eval stool C. difficile DT precautions Nicotine patch PRN PT OT eval DVT prophylaxis. IV heparin-Coumadin bridge tx Full code Patient partner requesting updates from providers. Dr. Lester Limon, contact #[phone]. (1) Pulmonary emboli Acute cor pulmonale presence: unspecified Chronicity: unspecified Pulmonary embolism type: unspecified Qualified Code(s): I26.99 - Other pulmonary embolism without acute cor pulmonale (2) Hypotension Hypotension type: unspecified hypotension type Qualified Code(s): I95.9 - Hypotension, unspecified
[2019-06-08 22:26] LABS: Influenza A virus by PCR Neg for Influ A (Neg); Influenza B virus by PCR Neg for Influ B (Neg)
[2019-06-08] MEDS ORDERED: PIPERACILL/TAZOBAC CONSULT ACTIVE PRN (22:31)
[2019-06-08] MEDS ORDERED: PIPERACILLIN/TAZOBACTAM 4.5 GM/120 ML BAG IV STA (22:42)
[2019-06-08] MEDS ORDERED: WARFARIN SOD 5 MG TAB PO STA (23:16)
[2019-06-08] MEDS: Heparin IV Standard *NO* Bolus IV SCH (23:21)
[2019-06-08] MEDS ORDERED: HEPARIN 25000 UNIT/500 ML D5W IV ONE (23:46)
[2019-06-09] MEDS: HEPARIN SODIUM/DEXTROSE 25,000 UNITS/500 ML BAG IV SCH (00:16)
[2019-06-09] MEDS ORDERED: LORazepam 1 MG/2 ML VIAL IV PRN (01:13)
[2019-06-09] MEDS ORDERED: LORazepam 3 MG/6 ML VIAL IV PRN (01:13)
[2019-06-09] MEDS ORDERED: ATIVAN IV ALCOHOL WITHDRAWL IV PRN (01:13)
[2019-06-09] MEDS ORDERED: LORazepam 2 MG/4 ML VIAL IV PRN (01:13)
[2019-06-09] MEDS ORDERED: ACETAMINOPHEN 325 MG TAB PO PRN (01:13)
[2019-06-09] MEDS ORDERED: OXYCODONE HCL IR 5 MG TAB (IMMEDIATE RELEASE) PO PRN (01:13)
[2019-06-09] MEDS ORDERED: XOPENEX/ATROVENT 1.25mg/0.5MG NEB COMBO NEB STA (01:13)
[2019-06-09] MEDS ORDERED: MULTI-VITAMIN INFUSION 10 ML, THIAMINE HCL 100 MG, FOLIC ACID 1 MG in SODIUM CHLORIDE 0... IV ONE (01:13)
[2019-06-09] MEDS ORDERED: PROMETHAZINE HCL 12.5 MG in SODIUM CHLORIDE 0.9% 50 ML IV PRN (01:13)
[2019-06-09] MEDS ORDERED: IPRATROPIUM BROMIDE NEB SOLN 0.02% 2.5 ML VIAL INH STA (01:20)
[2019-06-09] MEDS ORDERED: LEVALBUTEROL 1.25MG/0.5ML NEB INH STA (01:21)
[2019-06-09] MEDS: MIDODRINE HCL 10 MG TAB PO SCH ×4 (01:41→16:51)
[2019-06-09] MEDS: Heparin IV Standard *NO* Bolus IV SCH ×2 (02:43→02:44)
[2019-06-09] MEDS: PIPERACILLIN/TAZOBACTAM 3.375 GM in DEXTROSE 5% 100 ML IV SCH ×3 (04:06→20:34)
[2019-06-09 05:13] LABS: Appearance Urine Clear (Clear); Bacteria Urine Automated Negative (Negative); Bilirubin Urine Negative (Negative); Blood Urine Negative (Negative); Color Urine Yellow; Epithelial Cell Urine Auto 20-30 /lpf (0-5); Glucose Urine UA Negative (Negative); Ketones Urine Negative (Negative); Leukocyte Esterase Urine 2+ (Negative); Nitrite Urine Negative (Negative); Protein Urine Negative (Negative); RBC Urine Automated 0-4 /hpf (0-4); Specific Gravity Urine 1.025 (1.000-1.030); Urobilinogen Urine Negative (Negative); WBC Urine Automated >30 /hpf (0-5)
[2019-06-09 05:30] LABS: Amphetamines+Metham, Urine Neg (Neg); Barbiturates, Urine Neg (Neg); Benzodiazepine, Urine Neg (Neg); Cocaine, Urine Neg (Neg); MDMA (Ecstacy), Urine Neg (Neg); Methadone, Urine Neg (Neg); Opiate, Urine Neg (Neg); Phencyclidine, Urine Neg (Neg)
[2019-06-09 06:33] LABS: Basophils # (auto) 0.03 K/uL (0-0.2); Basophils % (auto) 0.4 %; Eosinophils # (auto) 0.07 K/uL (0-0.5); Eosinophils % (auto) 0.9 %; Hematocrit (blood only) 21.7 % (37-47); Hemoglobin 7.4 g/dL (12.0-16.0); Immature Granulocytes # (auto) 0.01 K/uL (0.00-0.02); Immature Granulocytes % (auto) 0.1 %; Lymphocytes # (auto) 1.07 K/uL (1.2-3.4); Lymphocytes % (auto) 14.4 %; Mean Corpuscular Hemoglobin 35.1 pg (25-34); Mean Corpuscular Hgb Conc 34.1 g/dL (32-36); Mean Corpuscular Volume 102.8 fL (80-100); Mean Platelet Volume 8.6 fL (7.4-10.4); Monocytes # (auto) 0.75 K/uL (0.11-0.59); Monocytes % (auto) 10.1 %; Neutrophils # (auto) 5.52 K/uL (1.4-6.5); Neutrophils % (auto) 74.1 %; Platelet Count 253 K/uL (130-400); RDW Coefficient of Variation 16.7 % (11.5-14.5); RDW Standard Deviation 62.7 fL (36.4-46.3); Red Blood Count 2.11 M/uL (4.2-5.4); White Blood Count 7.45 K/uL (4.8-10.8)
[2019-06-09 06:42] LABS: INR 1.4 (0.9-1.1); Prothrombin Time 13.7 Seconds (9.0-12.0)
[2019-06-09 06:49] LABS: BUN Creatinine Ratio 12.4 (10-20); Creatinine Clr Calc Pharmacy 74.8 ml/min; Est GFR (African American) 111.5; Est GFR (Non-African American) 96.2
[2019-06-09 06:57] LABS: Partial Thromboplastin Time 55.5 Seconds (21.0-31.0)
[2019-06-09 07:04] LABS: Polychromasia 1+
[2019-06-09] MEDS: THIAMINE HCL 100 MG TAB PO SCH ×2 (08:14→20:36)
[2019-06-09] MEDS: FLINTSTONES COMPLETE CHEWABLE TAB PO SCH ×2 (08:14→20:35)
[2019-06-09] MEDS: GABAPENTIN 100 MG CAP PO SCH ×3 (08:14→20:35)
[2019-06-09] MEDS: FOLIC ACID 1 MG TAB PO SCH (08:14)
[2019-06-09] MEDS: PANTOprazole 40 MG TAB PO SCH ×2 (08:14→20:35)
[2019-06-09] MEDS ORDERED: MULTIVITAMIN TAB PO SCH (09:00)
--- NOTE | 2019-06-09 14:12 | Electrocardiogram Report ---
Test Reason : Blood Pressure : / mmHG Vent. Rate : 103 BPM Atrial Rate : 103 BPM P-R Int : 134 ms QRS Dur : 074 ms QT Int : 356 ms P-R-T Axes : 055 058 072 degrees QTc Int : 466 ms Sinus tachycardia Otherwise normal ECG When compared with ECG of 17-MAY-2019 19:19, Nonspecific T wave abnormality no longer evident in Inferior leads T wave inversion no longer evident in Anterior leads QT has shortened Confirmed by Senthil Beltran ([id number]) on 06/09/2019 2:12:08 PM Referred By: REFERRED SELF Confirmed By:Senthil Beltran
--- NOTE | 2019-06-09 15:49 | Hospitalist Progress Note ---
Date of Service June 09, 2019 Assessment & Plan (1) Nausea and vomiting: This is a 59-year-old female with a PMH of gastric bypass in 2014, anxiety, depression, hypertension, fibromyalgia, chronic diastolic heart failure, alcohol and tobacco use and other medical problems listed below who presents with intermittent nausea, vomiting and diarrhea for the past week. -Intermittent nausea and vomiting since discharge home from [facility] -In setting of poor PO intake, heavy alcohol use -Flu PCR negative -IV fluids, antiemetics -Clinically better as of today with no nausea and/or vomiting -Continue current management (2) Diarrhea: Intermittent, worsening. C. difficile is pending (3) Hospital acquired PNA: Recently hospitalized for submassive PE and cor pulmonale -Has since developed cough. Chest CTA with new foci of patchy groundglass consolidation are present at both lung bases and there is a trace right pleural effusion -Possible aspiration pneumonitis in the setting of chronic alcohol use, vomiting -Cover with Zosyn empirically for now -Symptomatically much better without any shortness of breath at rest, still has little cough (4) Pulmonary emboli: Recently admitted to our service in mid May for extensive pulmonary embolism and acute cor pulmonale. Initially placed on IV heparin, then Lovenox and discharged to [facility] on Coumadin -INR of 1.1 today. Was directed to take 4mg coumadin but has not yet taken -Chest CTA with bilateral pulmonary emboli as above. The burden of thrombus has decreased from 05/17/2019. Also with evolving pulmonary infarcts as above -We will try to put her on Lovenox and Coumadin -Likely discharge tomorrow (5) Hypotension: In setting of CHF -Continue Midodrine - missed noontime and evening doses today -Blood pressure seems to be stable (6) Severe protein-calorie malnutrition: Follows with nutrition and weight management. Plan for follow-up in [place] for possible PEG tube -Continue boost daily, may benefit from nutrition consult here (7) Malnutrition following gastrointestinal surgery: Continue vitamin A, vitamin D, monthly B12 injections, thiamine (8) Wound of left lower extremity: Traumatic wound from falling last month -Has been following with wound care clinic -Will need wound care consult while in-patient -We will have an appointment with outpatient wound clinic (9) Alcohol abuse: Denies drinking but per boyfriend, sipping on 8-10oz vodka daily -Discussed likelihood of this contributing to decreased appetite and weight loss at Nutrition & Weight Management appt today- patient not interested in cessation -Does not have any signs of withdrawal (10) Tobacco use disorder: Smoking 1.5 ppd. Offered nicotine patch but not interested DVT Ppx: Subtherapeutic INR on coumadin - will require bridging Code status: FULL PCP: Jie Atkins 06/09/2019 The patient was seen and examined in medical telemetry unit She complains to have some cough and weakness Denies any shortness of breath at rest She has been otherwise stable Review of Systems Review of Systems: All systems reviewed and are unremarkable except as noted below Respiratory: + cough and + dyspnea on exertion; no dyspnea Cardiovascular: no chest pain Neurologic: + generalized weakness Physical Exam Physical Exam: No apparent distress at rest Constitutional: well developed and well nourished; no acute distress and not ill appearing Eyes: PERRL, conjunctivae normal, anicteric sclerae ENMT: external ear and nose normal, oropharynx normal Neck: trachea midline, no thyromegaly Respiratory: normal respiratory effort Auscultation: lungs clear to auscultation bilaterally, + diminished lung sounds and + crackles (Minimal bibasilar crackles) Cardiovascular: Rate/Rhythm: regular rate and regular rhythm Heart Sounds: no murmur Gastrointestinal (Abdomen): Inspection/Auscultation: abdomen normal to inspection and normal bowel sounds Percussion/Palpation: abdomen soft; abdomen nontender Musculoskeletal: No acute arthritis in any joints Neurologic: moves all extremities; no focal motor deficits Lymphatic: no cervical or axillary lymphadenopathy Results & Data ([facility]) Vital Signs (Past 12 Hours) Vital Signs Temp Pulse Pulse Resp BP Pulse Ox 06/09/19 14:31 94/57 L 06/09/19 11:22 68 18 84/58 L 100 06/09/19 08:32 90 06/09/19 07:27 37.3 C 86 18 80/43 L 100 Laboratory Results Short CBC 06/08/19 06/09/19 Range/Units 18:18 06:19 WBC 8.73 7.45 (4.8-10.8) K/uL Hgb 9.8 L 7.4 L (12.0-16.0) g/dL Hct 29.7 L 21.7 L (37-47) % Plt Count 309 253 (130-400) K/uL BMP 02/04/20 02/05/20 18:18 06:19 Sodium 138 138 Potassium 4.5 4.0 Chloride 110 H 111 H Carbon Dioxide 26 24 BUN 10 8 Creatinine 0.71 0.67 Glucose 69 L 93 Calcium 8.0 L 7.0 L Cardiac Enzymes 06/08/19 Range/Units 18:18 Troponin I < 0.015 (0-0.045) ng/ml Liver Function 06/08/19 Range/Units 18:18 Total Bilirubin 0.4 (0.2-1) mg/dl AST 15 (15-37) U/L ALT 19 (12-78) U/L Alkaline Phosphatase 147 H (45-117) U/L Albumin 1.4 L (3.4-5.0) gm/dl Urine 06/09/19 Range/Units 05:01 Urine Color Yellow Urine Appearance Clear (Clear) Urine pH 6.0 (4.5-7.5) Ur Specific [place] 1.025 (1.000-1.030) Urine Protein Negative (Negative) Urine Glucose (UA) Negative (Negative) Medications Administered Current Inpatient Medications Acetaminophen (Tylenol) 325 mg PO Q6H PRN PRN Reason: Pain or Fever Stop: 07/09/19 01:12 Buspirone HCl (Buspar) 10 mg PO BID [facility] Stop: 07/09/19 01:12 Last Admin: 06/09/19 08:13 Dose: 10 mg Documented by: Cyanocobalamin (Vitamin B-12) 1,000 mcg IM TODAY@0900 [facility] Stop: 06/19/19 09:01 Folic Acid (Folvite) 1 mg PO QAM [facility] Stop: 07/09/19 08:59 Last Admin: 06/09/19 08:14 Dose: 1 mg Documented by: Gabapentin (Neurontin) 100 mg PO TID [facility] Stop: 07/09/19 08:59 Last Admin: 06/09/19 13:18 Dose: 100 mg Documented by: Heparin Sodium/Dextrose (Heparin Sodium/Dextrose) 25,000 units in 500 mls @ 19 mls/hr IV .Q24H [facility]; Protocol Stop: 07/08/19 22:59 Last Titration: 06/09/19 15:05 Dose: 950 units/hr, 19 mls/hr Documented by: Lorazepam (Ativan) 1 mg in 2 mls @ 2 mls/min IV UD PRN; Protocol PRN Reason: EtOH Withdrawl AWSS Score 6,7 Stop: 07/09/19 01:12 Lorazepam (Ativan) 2 mg in 4 mls @ 4 mls/min IV UD PRN; Protocol PRN Reason: EtOH Withdrawl AWSS Score 8,9 Stop: 07/09/19 01:12 Promethazine HCl 12.5 mg/ (Sodium Chloride) 50.5 mls @ 202 mls/hr IV Q6H PRN PRN Reason: Nausea And Vomiting Stop: 07/09/19 01:12 Lorazepam (Ativan) 3 mg in 6 mls @ 4 mls/min IV ONCE PRN; Protocol PRN Reason: EtOH Withdrawl AWSS Score >=10 Stop: 07/09/19 01:12 Piperacillin Sod/Tazobactam (Sod 3.375 gm/ Dextrose) 115 mls @ 28.75 mls/hr IV Q8H [facility]; Protocol Stop: 06/16/19 03:59 Last Infusion: 06/09/19 15:14 Dose: Infused Documented by: Midodrine (Proamatine) 10 mg PO TID@0800,1200,1700 [facility] Stop: 07/09/19 01:12 Last Admin: 06/09/19 11:01 Dose: 10 mg Documented by: Mirtazapine (Remeron Solutab) 45 mg PO HS [facility] Stop: 07/09/19 20:59 Miscellaneous Information (Consult) 1 ea N/A UD PRN PRN Reason: Consult Stop: 07/08/19 22:30 Last Admin: 06/08/19 23:21 Dose: 1 ea Documented by: Multivitamins/Folic Acid/Vitamin C (Flintstones Complete Chew Tab) 1 tab PO BID [facility] Stop: 07/09/19 08:59 Last Admin: 06/09/19 08:14 Dose: 1 tab Documented by: Oxycodone HCl (Roxicodone Immediate Rel) 5 mg PO Q4H PRN PRN Reason: Pain Stop: 06/23/19 01:12 Pantoprazole Sodium (Protonix) 40 mg PO BID [facility] Stop: 07/09/19 08:59 Last Admin: 06/09/19 08:14 Dose: 40 mg Documented by: Thiamine HCl (Vitamin B-1) 100 mg PO BID [facility] Stop: 07/09/19 08:59 Last Admin: 06/09/19 08:14 Dose: 100 mg Documented by: Warfarin Sodium (Coumadin) 5 mg PO DAILY@1600 [facility] Stop: 07/09/19 15:59 (1) Pulmonary emboli Acute cor pulmonale presence: unspecified Chronicity: unspecified Pulmonary embolism type: unspecified Qualified Code(s): I26.99 - Other pulmonary embolism without acute cor pulmonale (2) Hypotension Hypotension type: unspecified hypotension type Qualified Code(s): I95.9 - Hypotension, unspecified
[2019-06-09] MEDS: WARFARIN SOD 5 MG TAB PO SCH (16:50)
[2019-06-09] MEDS: MIRTAZAPINE SOLTAB 15 MG PO SCH (20:36)
[2019-06-10] MEDS: HEPARIN SODIUM/DEXTROSE 25,000 UNITS/500 ML BAG IV SCH ×2 (00:18→22:15)
[2019-06-10] MEDS: MIDODRINE HCL 10 MG TAB PO SCH ×3 (04:04→15:53)
[2019-06-10] MEDS: PIPERACILLIN/TAZOBACTAM 3.375 GM in DEXTROSE 5% 100 ML IV SCH ×3 (04:04→20:08)
[2019-06-10 06:24] LABS: Partial Thromboplastin Ratio 3.2
[2019-06-10 06:28] LABS: Partial Thromboplastin Time 86.3 Seconds (21.0-31.0)
[2019-06-10] MEDS: FOLIC ACID 1 MG TAB PO SCH (09:09)
[2019-06-10] MEDS: THIAMINE HCL 100 MG TAB PO SCH ×2 (09:09→20:10)
[2019-06-10] MEDS: GABAPENTIN 100 MG CAP PO SCH ×3 (09:09→20:10)
[2019-06-10] MEDS: PANTOprazole 40 MG TAB PO SCH ×2 (09:10→20:09)
[2019-06-10] MEDS: FLINTSTONES COMPLETE CHEWABLE TAB PO SCH ×2 (09:10→20:09)
[2019-06-10 09:52] LABS: Basophils # (auto) 0.07 K/uL (0-0.2); Basophils % (auto) 1.5 %; Eosinophils # (auto) 0.14 K/uL (0-0.5); Hematocrit (blood only) 26.6 % (37-47); Hemoglobin 8.8 g/dL (12.0-16.0); Immature Granulocytes # (auto) 0.01 K/uL (0.00-0.02); Immature Granulocytes % (auto) 0.2 %; Lymphocytes # (auto) 1.64 K/uL (1.2-3.4); Lymphocytes % (auto) 35.7 %; Mean Corpuscular Hemoglobin 34.2 pg (25-34); Mean Corpuscular Hgb Conc 33.1 g/dL (32-36); Mean Corpuscular Volume 103.5 fL (80-100); Monocytes # (auto) 0.51 K/uL (0.11-0.59); Monocytes % (auto) 11.1 %; Neutrophils # (auto) 2.23 K/uL (1.4-6.5); Neutrophils % (auto) 48.5 %; Platelet Count 286 K/uL (130-400); RDW Coefficient of Variation 16.6 % (11.5-14.5); RDW Standard Deviation 63.1 fL (36.4-46.3); Red Blood Count 2.57 M/uL (4.2-5.4)
[2019-06-10 10:02] LABS: INR 1.5 (0.9-1.1); Prothrombin Time 15.2 Seconds (9.0-12.0)
[2019-06-10 10:17] LABS: BUN Creatinine Ratio 8.2 (10-20); Calcium 7.2 mg/dl (8.5-10.1); Creatinine Clr Calc Pharmacy 68.6 ml/min; Est GFR (African American) 104.5; Est GFR (Non-African American) 90.1; Potassium 3.5 mmol/L (3.5-5.1)
[2019-06-10] MEDS ORDERED: LOPERAMIDE HCL 2 MG CAP PO PRN (11:58)
[2019-06-10 14:16] LABS: Partial Thromboplastin Ratio 2.3
[2019-06-10 14:17] LABS: Partial Thromboplastin Time 62.1 Seconds (21.0-31.0)
[2019-06-10] MEDS: WARFARIN SOD 5 MG TAB PO SCH (15:53)
--- NOTE | 2019-06-10 16:55 | Hospitalist Progress Note ---
Date of Service June 10, 2019 Assessment & Plan (1) Nausea and vomiting: This is a 59-year-old female with a PMH of gastric bypass in 2014, anxiety, depression, hypertension, fibromyalgia, chronic diastolic heart failure, alcohol and tobacco use and other medical problems listed below who presents with intermittent nausea, vomiting and diarrhea for the past week. -Intermittent nausea and vomiting since discharge home from [facility] -In setting of poor PO intake, heavy alcohol use -Flu PCR negative -IV fluids, antiemetics -Clinically better as of today with no nausea and/or vomiting -No more nausea and or vomiting (2) Diarrhea: Intermittent, worsening. Continues to have diarrhea as of this morning Will send stool for C. difficile and culture Imodium started to control diarrhea (3) Hospital acquired PNA: Recently hospitalized for submassive PE and cor pulmonale -Has since developed cough. Chest CTA with new foci of patchy groundglass consolidation are present at both lung bases and there is a trace right pleural effusion -Possible aspiration pneumonitis in the setting of chronic alcohol use, vomiting -Cover with Zosyn empirically for now -Symptomatically much better without any shortness of breath at rest, still has little cough -Clinically much better (4) Pulmonary emboli: Recently admitted to our service in mid May for extensive pulmonary embolism and acute cor pulmonale. Initially placed on IV heparin, then Lovenox and discharged to [facility] on Coumadin -INR of 1.1 today. Was directed to take 4mg coumadin but has not yet taken -Chest CTA with bilateral pulmonary emboli as above. The burden of thrombus has decreased from 05/17/2019. Also with evolving pulmonary infarcts as above -We will try to put her on Lovenox and Coumadin -INR is not yet therapeutic -Likely discharge tomorrow (5) Hypotension: In setting of CHF -Continue Midodrine - missed noontime and evening doses today -Blood pressure seems to be stable (6) Severe protein-calorie malnutrition: Follows with nutrition and weight management. Plan for follow-up in [place] for possible PEG tube -Continue boost daily, may benefit from nutrition consult here (7) Malnutrition following gastrointestinal surgery: Continue vitamin A, vitamin D, monthly B12 injections, thiamine (8) Wound of left lower extremity: Traumatic wound from falling last month -Has been following with wound care clinic -Will need wound care consult while in-patient -We will have an appointment with outpatient wound clinic (9) Alcohol abuse: Denies drinking but per boyfriend, sipping on 8-10oz vodka daily -Discussed likelihood of this contributing to decreased appetite and weight loss at Nutrition & Weight Management appt today- patient not interested in cessation -Does not have any signs of withdrawal (10) Tobacco use disorder: Smoking 1.5 ppd. Offered nicotine patch but not interested DVT Ppx: Subtherapeutic INR on coumadin - will require bridging Code status: FULL PCP: Jie Subjective 06/09/2019 The patient was seen and examined in medical telemetry unit She complains to have some cough and weakness Denies any shortness of breath at rest She has been otherwise stable 06/10/2019 Patient was seen and examined in medical floor She remains weak and complains of diarrhea without any significant abdominal pain No fever and/or chills and no shortness of breath Review of Systems Review of Systems: All systems reviewed and are unremarkable except as noted below Respiratory: + cough and + dyspnea on exertion; no dyspnea Neurologic: + generalized weakness Physical Exam Physical Exam: No apparent distress at rest Constitutional: well developed and well nourished; no acute distress and not ill appearing Eyes: PERRL, conjunctivae normal, anicteric sclerae ENMT: external ear and nose normal, oropharynx normal Neck: trachea midline, no thyromegaly Respiratory: normal respiratory effort Auscultation: lungs clear to auscultation bilaterally, + diminished lung sounds and + crackles (Minimal bibasilar crackles) Cardiovascular: Rate/Rhythm: regular rate and regular rhythm Heart Sounds: no murmur Gastrointestinal (Abdomen): Inspection/Auscultation: abdomen normal to inspection and normal bowel sounds; abdomen not distended Percussion/Palpation: abdomen soft; abdomen nontender Musculoskeletal: No acute arthritis in any joints Neurologic: moves all extremities; no focal motor deficits Lymphatic: no cervical or axillary lymphadenopathy Results & Data ([facility]) Vital Signs (Past 12 Hours) Vital Signs Temp Pulse Resp BP Pulse Ox 06/10/19 15:36 36.6 C 66 18 96/70 L 99 06/10/19 11:19 36.6 C 61 18 93/62 L 99 06/10/19 07:00 36.5 C 58 L 18 87/55 L 100 Laboratory Results Short CBC 06/10/19 Range/Units 09:36 WBC 4.60 L (4.8-10.8) K/uL Hgb 8.8 L (12.0-16.0) g/dL Hct 26.6 L (37-47) % Plt Count 286 (130-400) K/uL [facility] 06/10/19 09:36 Sodium 142 Potassium 3.5 Chloride 113 H Carbon Dioxide 24 BUN 6 L Creatinine 0.73 Glucose 132 H Calcium 7.2 L Medications Administered Current Inpatient Medications Acetaminophen (Tylenol) 325 mg PO Q6H PRN PRN Reason: Pain or Fever Stop: 07/09/19 01:12 Last Admin: 06/09/19 20:38 Dose: 325 mg Documented by: Buspirone HCl (Buspar) 10 mg PO BID [facility] Stop: 07/09/19 01:12 Last Admin: 06/10/19 09:09 Dose: 10 mg Documented by: Cyanocobalamin (Vitamin B-12) 1,000 mcg IM TODAY@0900 [facility] Stop: 06/19/19 09:01 Folic Acid (Folvite) 1 mg PO QAM [facility] Stop: 07/09/19 08:59 Last Admin: 06/10/19 09:09 Dose: 1 mg Documented by: Gabapentin (Neurontin) 100 mg PO TID [facility] Stop: 07/09/19 08:59 Last Admin: 06/10/19 12:48 Dose: 100 mg Documented by: Heparin Sodium/Dextrose (Heparin Sodium/Dextrose) 25,000 units in 500 mls @ 17 mls/hr IV .Q24H [facility]; Protocol Stop: 07/08/19 22:59 Last Titration: 06/10/19 14:24 Dose: 850 units/hr, 17 mls/hr Documented by: Lorazepam (Ativan) 1 mg in 2 mls @ 2 mls/min IV UD PRN; Protocol PRN Reason: EtOH Withdrawl AWSS Score 6,7 Stop: 07/09/19 01:12 Lorazepam (Ativan) 2 mg in 4 mls @ 4 mls/min IV UD PRN; Protocol PRN Reason: EtOH Withdrawl AWSS Score 8,9 Stop: 07/09/19 01:12 Promethazine HCl 12.5 mg/ (Sodium Chloride) 50.5 mls @ 202 mls/hr IV Q6H PRN PRN Reason: Nausea And Vomiting Stop: 07/09/19 01:12 Lorazepam (Ativan) 3 mg in 6 mls @ 4 mls/min IV ONCE PRN; Protocol PRN Reason: EtOH Withdrawl AWSS Score >=10 Stop: 07/09/19 01:12 Piperacillin Sod/Tazobactam (Sod 3.375 gm/ Dextrose) 115 mls @ 28.75 mls/hr IV Q8H [facility]; Protocol Stop: 06/16/19 03:59 Last Infusion: 06/10/19 15:42 Dose: Infused Documented by: Loperamide HCl (Imodium) 2 mg PO Q6H PRN PRN Reason: Diarrhea Stop: 07/10/19 11:59 Last Admin: 06/10/19 16:09 Dose: 2 mg Documented by: Midodrine (Proamatine) 10 mg PO TID@0800,1200,1700 [facility] Stop: 07/09/19 01:12 Last Admin: 06/10/19 15:53 Dose: 10 mg Documented by: Mirtazapine (Remeron Solutab) 45 mg PO HS [facility] Stop: 07/09/19 20:59 Last Admin: 06/09/19 20:36 Dose: 45 mg Documented by: Miscellaneous Information (Consult) 1 ea N/A UD PRN PRN Reason: Consult Stop: 07/08/19 22:30 Last Admin: 06/08/19 23:21 Dose: 1 ea Documented by: Multivitamins/Folic Acid/Vitamin C (Flintstones Complete Chew Tab) 1 tab PO BID [facility] Stop: 07/09/19 08:59 Last Admin: 06/10/19 09:10 Dose: 1 tab Documented by: Oxycodone HCl (Roxicodone Immediate Rel) 5 mg PO Q4H PRN PRN Reason: Pain Stop: 06/23/19 01:12 Pantoprazole Sodium (Protonix) 40 mg PO BID [facility] Stop: 07/09/19 08:59 Last Admin: 06/10/19 09:10 Dose: 40 mg Documented by: Thiamine HCl (Vitamin B-1) 100 mg PO BID [facility] Stop: 07/09/19 08:59 Last Admin: 06/10/19 09:09 Dose: 100 mg Documented by: Warfarin Sodium (Coumadin) 5 mg PO DAILY@1600 [facility] Stop: 07/09/19 15:59 Last Admin: 06/10/19 15:53 Dose: 5 mg Documented by: (1) Pulmonary emboli Acute cor pulmonale presence: unspecified Chronicity: unspecified Pulmonary embolism type: unspecified Qualified Code(s): I26.99 - Other pulmonary embolism without acute cor pulmonale (2) Hypotension Hypotension type: unspecified hypotension type Qualified Code(s): I95.9 - Hypotension, unspecified
[2019-06-10] MEDS: MIRTAZAPINE SOLTAB 15 MG PO SCH (20:10)
[2019-06-11] MEDS: PIPERACILLIN/TAZOBACTAM 3.375 GM in DEXTROSE 5% 100 ML IV SCH ×2 (04:28→11:59)
[2019-06-11 06:58] LABS: Basophils # (auto) 0.05 K/uL (0-0.2); Basophils % (auto) 1.4 %; Eosinophils # (auto) 0.17 K/uL (0-0.5); Eosinophils % (auto) 4.9 %; Hematocrit (blood only) 26.9 % (37-47); Hemoglobin 8.8 g/dL (12.0-16.0); Lymphocytes % (auto) 40.6 %; Mean Corpuscular Hemoglobin 34.1 pg (25-34); Mean Corpuscular Hgb Conc 32.7 g/dL (32-36); Mean Corpuscular Volume 104.3 fL (80-100); Mean Platelet Volume 9.5 fL (7.4-10.4); Monocytes # (auto) 0.38 K/uL (0.11-0.59); Neutrophils # (auto) 1.45 K/uL (1.4-6.5); Neutrophils % (auto) 42.1 %; Platelet Count 282 K/uL (130-400); RDW Coefficient of Variation 16.4 % (11.5-14.5); RDW Standard Deviation 62.8 fL (36.4-46.3); Red Blood Count 2.58 M/uL (4.2-5.4); White Blood Count 3.45 K/uL (4.8-10.8)
[2019-06-11 07:09] LABS: INR 1.9 (0.9-1.1); Prothrombin Time 18.2 Seconds (9.0-12.0)
[2019-06-11 07:27] LABS: Partial Thromboplastin Ratio 3.1
[2019-06-11 07:37] LABS: BUN Creatinine Ratio 9.6 (10-20); Calcium 7.8 mg/dl (8.5-10.1); Creatinine Clr Calc Pharmacy 86.4 ml/min; Est GFR (African American) 116.9; Est GFR (Non-African American) 100.9; Potassium 3.6 mmol/L (3.5-5.1)
[2019-06-11 07:41] LABS: Partial Thromboplastin Time 82.8 Seconds (21.0-31.0)
[2019-06-11] MEDS: GABAPENTIN 100 MG CAP PO SCH ×2 (08:14→14:15)
[2019-06-11] MEDS: PANTOprazole 40 MG TAB PO SCH (08:14)
[2019-06-11] MEDS: MIDODRINE HCL 10 MG TAB PO SCH ×2 (08:15→12:00)
[2019-06-11] MEDS: FLINTSTONES COMPLETE CHEWABLE TAB PO SCH (08:15)
[2019-06-11] MEDS: FOLIC ACID 1 MG TAB PO SCH (08:15)
[2019-06-11] MEDS: THIAMINE HCL 100 MG TAB PO SCH (08:15)
[2019-06-11 12:06] VITALS: PULSE 71; TEMP 98.4; O2SAT 99
--- NOTE | 2019-06-11 13:38 | Hospitalist Progress Note ---
Date of Service June 11, 2019 Assessment & Plan (1) Nausea and vomiting: This is a 59-year-old female with a PMH of gastric bypass in 2014, anxiety, depression, hypertension, fibromyalgia, chronic diastolic heart failure, alcohol and tobacco use and other medical problems listed below who presents with intermittent nausea, vomiting and diarrhea for the past week. -Intermittent nausea and vomiting since discharge home from [facility] -In setting of poor PO intake, heavy alcohol use -Flu PCR negative -IV fluids, antiemetics -Clinically better as of today with no nausea and/or vomiting -No more nausea and or vomiting -We will be going home this afternoon (2) Diarrhea: Intermittent, worsening. Continues to have diarrhea as of this morning Will send stool for C. difficile and culture Imodium started to control diarrhea -C. difficile has been negative -Stool cultures negative so (3) Hospital acquired PNA: Recently hospitalized for submassive PE and cor pulmonale -Has since developed cough. Chest CTA with new foci of patchy groundglass consolidation are present at both lung bases and there is a trace right pleural effusion -Possible aspiration pneumonitis in the setting of chronic alcohol use, vomiting -Cover with Zosyn empirically for now -Symptomatically much better without any shortness of breath at rest, still has little cough -Clinically much better (4) Pulmonary emboli: Recently admitted to our service in mid May for extensive pulmonary embolism and acute cor pulmonale. Initially placed on IV heparin, then Lovenox and discharged to [facility] on Coumadin -INR of 1.1 today. Was directed to take 4mg coumadin but has not yet taken -Chest CTA with bilateral pulmonary emboli as above. The burden of thrombus has decreased from 05/17/2019. Also with evolving pulmonary infarcts as above -We will try to put her on Lovenox and Coumadin -INR is not yet therapeutic -Likely discharge tomorrow -INR is 1.9 today -We will discharge home today (5) Hypotension: In setting of CHF -Continue Midodrine - missed noontime and evening doses today -Blood pressure seems to be stable (6) Severe protein-calorie malnutrition: Follows with nutrition and weight management. Plan for follow-up in [place] for possible PEG tube -Continue boost daily, may benefit from nutrition consult here (7) Malnutrition following gastrointestinal surgery: Continue vitamin A, vitamin D, monthly B12 injections, thiamine (8) Wound of left lower extremity: Traumatic wound from falling last month -Has been following with wound care clinic -Will need wound care consult while in-patient -We will have an appointment with outpatient wound clinic (9) Alcohol abuse: Denies drinking but per boyfriend, sipping on 8-10oz vodka daily -Discussed likelihood of this contributing to decreased appetite and weight loss at Nutrition & Weight Management appt today- patient not interested in cessation -Does not have any signs of withdrawal (10) Tobacco use disorder: Smoking 1.5 ppd. Offered nicotine patch but not interested DVT Ppx: Subtherapeutic INR on coumadin - will require bridging Code status: FULL PCP: Jie Atkins 06/09/2019 The patient was seen and examined in medical telemetry unit She complains to have some cough and weakness Denies any shortness of breath at rest She has been otherwise stable 06/10/2019 Patient was seen and examined in medical floor She remains weak and complains of diarrhea without any significant abdominal pain No fever and/or chills and no shortness of breath 06/11/2019 Patient was seen and examined in medical telemetry unit She has been stable as of today Her diarrhea is controlled There is no C. difficile but the stool culture has been pending Review of Systems Review of Systems: All systems reviewed and are unremarkable except as noted below Respiratory: + cough and + dyspnea on exertion; no dyspnea Neurologic: + generalized weakness Physical Exam Physical Exam: No apparent distress at rest Constitutional: well developed and well nourished; no acute distress and not ill appearing Eyes: PERRL, conjunctivae normal, anicteric sclerae ENMT: external ear and nose normal, oropharynx normal Neck: trachea midline, no thyromegaly Respiratory: normal respiratory effort Auscultation: lungs clear to auscultation bilaterally, + diminished lung sounds and + crackles (Minimal bibasilar crackles) Cardiovascular: Rate/Rhythm: regular rate and regular rhythm Heart Sounds: no murmur Gastrointestinal (Abdomen): Inspection/Auscultation: abdomen normal to inspection and normal bowel sounds; abdomen not distended Percussion/Palpation: abdomen soft; abdomen nontender Musculoskeletal: No acute arthritis involving any joint Neurologic: moves all extremities; no focal motor deficits Lymphatic: no cervical or axillary lymphadenopathy Results & Data ([facility]) Vital Signs (Past 12 Hours) Vital Signs Temp Pulse Resp BP Pulse Ox 06/11/19 12:05 36.9 C 71 18 90/58 L 99 06/11/19 07:00 36.7 C 62 18 82/47 L 98 06/11/19 04:11 36.4 C L 74 18 89/59 L 99 Laboratory Results Short CBC 06/11/19 Range/Units 06:38 WBC 3.45 L (4.8-10.8) K/uL Hgb 8.8 L (12.0-16.0) g/dL Hct 26.9 L (37-47) % Plt Count 282 (130-400) K/uL [facility] 06/11/19 06:38 Sodium 143 Potassium 3.6 Chloride 114 H Carbon Dioxide 24 BUN 6 L Creatinine 0.58 L Glucose 90 Calcium 7.8 L (1) Pulmonary emboli Acute cor pulmonale presence: unspecified Chronicity: unspecified Pulmonary embolism type: unspecified Qualified Code(s): I26.99 - Other pulmonary embolism without acute cor pulmonale (2) Hypotension Hypotension type: unspecified hypotension type Qualified Code(s): I95.9 - Hypotension, unspecified
[2019-06-11] MEDS ORDERED: CEFDINIR 300 MG CAP PO STA (13:51)
[2019-06-11 14:03] VITALS: BP 90/55
[2019-06-11 14:37] LABS: Partial Thromboplastin Ratio 2.3
[2019-06-11 14:41] LABS: Partial Thromboplastin Time 63.4 Seconds (21.0-31.0)
[2019-06-11] MEDS ORDERED: CEFDINIR 300 MG CAP PO SCH (21:00)
--- NOTE | 2019-06-12 08:18 | Discharge Summary ---
Date of Service June 12, 2019 Admission HPI Per Admitting Provider This is a 59-year-old female with a PMH of gastric bypass in 2014, anxiety, depression, hypertension, fibromyalgia, chronic diastolic heart failure, alcohol and tobacco use and other medical problems listed below who presents with intermittent nausea, vomiting and diarrhea for the past week. Patient was recently admitted to our service in mid May for extensive pulmonary embolism and acute cor pulmonale. Was initially placed on IV heparin and then transition to Lovenox and discharged to [facility] on Coumadin. Patient was discharged home approximately 1 week ago and has since developed intermittent nausea, vomiting and diarrhea. States that she has been nauseous for majority of the time with poor PO intake. Has been trying to drink 1 boost a day but does not like the taste. Reports 2 episodes of vomiting. Also reports worsening diarrhea, but has had diarrhea intermittently for the past few months. Has developed dry cough. Was seen by nutrition and weight management at [facility] today due to severe protein calorie malnutrition and continued weight loss. Noted to be tachycardic in the 120s, appears dehydrated and smell of alcohol, so was directed to the ED for further evaluation. Patient denies drinking but per conversation with boyfriend, patient is sipping 8 to 10 ounces of vodka daily. Plans to be evaluated at [place] for possible PEG for enteral nutrition. Currently endorsing nausea and headache. Denies fever, chills, lightheadedness, visual changes, chest pain, palpitations, SOB, vomiting, abdominal pain, dysuria or constipation. Admission Exam Per Admitting Provider Physical Exam: General Appearance: WD/WN, vitals as above, appears frail and chronically ill, lying in bed, conversing easily Head: normocephalic, atraumatic Eyes: normal inspection, PERRL, conjunctivae normal, anicteric sclerae ENT: external ear and nose normal, oropharynx with dry mucous membranes Neck: trachea midline, no thyromegaly normal visual inspection Respiratory: normal respiratory effort, lungs sounds coarse but no wheezing or rales noted. Normal insp/exp effort, no accessory muscle use Cardiovascular: regular rate, rhythm, no murmur, normal peripheral pulses. Vessels: no JVD or carotid bruit Chest: normal inspection of chest Abdomen/GI: normal bowel sounds, soft, nontender, no hepatosplenomegaly Extremities/Musculoskelatal: no cyanosis or clubbing, extremities motor strength 5/5. LLE with healing wound with minimal drainage, no surrounding erythema Neurologic: PERRL, EOMI, accommodation nl, no face palsy, no dysarthria, CN's II-XI intact bilaterally and moves all extremities Psychiatric: A+Ox3, agitated Skin: no rashes, normal color, warm/dry Principal Diagnosis Hospital-acquired pneumonia, nausea vomiting and diarrhea-resolved, pulmonary embolism, protein calorie malnutrition, left lower extremity wound, alcohol abuse Discharge Exam Constitutional well developed and well nourished; no acute distress and not ill appearing Eyes PERRL, conjunctivae normal, anicteric sclerae ENMT external ear and nose normal, oropharynx normal Neck trachea midline, no thyromegaly Respiratory normal respiratory effort Auscultation: lungs clear to auscultation bilaterally, + diminished lung sounds and + crackles (Minimal bibasilar crackles) Cardiovascular Rate/Rhythm: regular rate and regular rhythm Heart Sounds: no murmur Gastrointestinal (Abdomen) Inspection/Auscultation: abdomen normal to inspection and normal bowel sounds; abdomen not distended Percussion/Palpation: abdomen soft; abdomen nontender Neurologic moves all extremities; no focal motor deficits Lymphatic no cervical or axillary lymphadenopathy Discharge Data Allergies Allergy/AdvReac Type Severity Reaction Status Date / Time codeine Allergy Intermediate Diarrhea/Ra Verified 06/08/19 17:42 sh duloxetine Allergy Intermediate Crawling Verified 06/08/19 17:42 out of her skin sensation NSAIDS (Non-Steroidal Allergy Unknown None Verified 06/08/19 17:42 Anti-Inflamma Bactrim AdvReac Intermediate DELIRIUM Verified 12/28/17 19:46 clonazepam AdvReac Intermediate Syncope Verified 06/08/19 17:42 hydrocodone AdvReac Intermediate Over Verified 06/08/19 17:42 sedated hydromorphone AdvReac Intermediate Weakness Verified 06/08/19 17:42 and sweating sulfamethoxazole AdvReac Intermediate DELIRIUM Verified 06/08/19 17:42 trimethoprim AdvReac Intermediate DELIRIUM Verified 06/08/19 17:42 aspirin AdvReac Mild STOMACH Verified 06/08/19 17:42 IRRITATION cephalexin AdvReac Mild GI SYMPTOMS Verified 06/08/19 17:42 Consultations 06/08/19 20:19 ED Decision to Admit Stat 06/09/19 01:13 Consult Case Management - Discharge Planning Routine Ordered Studies 06/08/19 17:02 CT angio chest PE protocol Stat Hospital Course (1) Nausea and vomiting: This is a 59-year-old female with a PMH of gastric bypass in 2013, anxiety, depression, hypertension, fibromyalgia, chronic diastolic heart failure, alcohol and tobacco use and other medical problems listed below who presents with intermittent nausea, vomiting and diarrhea for the past week. -Intermittent nausea and vomiting since discharge home from [facility] -In setting of poor PO intake, heavy alcohol use -Flu PCR negative -IV fluids, antiemetics -Clinically better as of today with no nausea and/or vomiting -No more nausea and or vomiting -We will be going home this afternoon (2) Diarrhea: Intermittent, worsening. Continues to have diarrhea as of this morning Will send stool for C. difficile and culture Imodium started to control diarrhea -C. difficile has been negative -Stool cultures negative so (3) Hospital acquired PNA: Recently hospitalized for submassive PE and cor pulmonale -Has since developed cough. Chest CTA with new foci of patchy groundglass consolidation are present at both lung bases and there is a trace right pleural effusion -Possible aspiration pneumonitis in the setting of chronic alcohol use, vomiting -Cover with Zosyn empirically for now -Symptomatically much better without any shortness of breath at rest, still has little cough -Clinically much better (4) Pulmonary emboli: Recently admitted to our service in mid May for extensive pulmonary embolism and acute cor pulmonale. Initially placed on IV heparin, then Lovenox and discharged to [facility] on Coumadin -INR of 1.1 today. Was directed to take 4mg coumadin but has not yet taken -Chest CTA with bilateral pulmonary emboli as above. The burden of thrombus has decreased from 05/17/2019. Also with evolving pulmonary infarcts as above -We will try to put her on Lovenox and Coumadin -INR is not yet therapeutic -Likely discharge tomorrow -INR is 1.9 today -We will discharge home today (5) Hypotension: In setting of CHF -Continue Midodrine - missed noontime and evening doses today -Blood pressure seems to be stable (6) Severe protein-calorie malnutrition: Follows with nutrition and weight management. Plan for follow-up in [place] for possible PEG tube -Continue boost daily, may benefit from nutrition consult here (7) Malnutrition following gastrointestinal surgery: Continue vitamin A, vitamin D, monthly B12 injections, thiamine (8) Wound of left lower extremity: Traumatic wound from falling last month -Has been following with wound care clinic -Will need wound care consult while in-patient -We will have an appointment with outpatient wound clinic (9) Alcohol abuse: Denies drinking but per boyfriend, sipping on 8-10oz vodka daily -Discussed likelihood of this contributing to decreased appetite and weight loss at Nutrition & Weight Management appt today- patient not interested in cessation -Does not have any signs of withdrawal (10) Tobacco use disorder: Smoking 1.5 ppd. Offered nicotine patch but not interested DVT Ppx: Subtherapeutic INR on coumadin - will require bridging Code status: FULL PCP: Jie Total Time Total Time Spent Total Time Spent (In Minutes): 35 minutes Total Time Includes: Examination of the Patient, Discharge Planning, Medication Reconciliation and Communication With Other Providers Discharge Plan Discharge Items Patient Disposition: Home - Home Health Services Reason For Visit: HYPOTENSION, HCAP Discharge Diagnosis: Hospital-acquired pneumonia, nausea vomiting and diarrhea-resolved, pulmonary embolism, protein calorie malnutrition, left lower extremity wound, alcohol abuse Condition on Discharge: Fair Activity: Resume your previous activity Non-emergency contact: Primary Care Provider Call non-emergency contact if: you have any medication questions and your symptoms worsen Follow-up/Referrals: Kvng Ceron DO [Primary Care Provider] - 06/17/19 2:45 pm (Coagulation clinic notified) Diet: Regular Addtl Attending Provider Instructions: Please take your Coumadin regularly and have regular follow-up with coagulation clinic Take precaution to avoid falls Advised to quit alcohol intake Pending Studies at Discharge: No Stand-Alone Forms: My [facility] [employer], Smoking Cessation Medications and DC Order Prescriptions: New warfarin [Coumadin] 4 mg tablet 4 mg PO DAILY Qty: 30 RF: 0 loperamide 2 mg Capsule 2 mg PO Q6H PRN (Reason: diarrhea) 10 Days Qty: 30 RF: 0 folic acid 1 mg Tablet 1 mg PO QAM 30 Days Qty: 30 RF: 0 cefdinir 300 mg capsule 300 mg PO BID 5 Days Qty: 10 RF: 0 Lactinex 1 million cell tablet,chewable 1 tab PO TID Qty: 30 RF: 0 Continued gabapentin 100 mg Capsule 100 mg PO TID RF: 0 omeprazole 20 mg Capsule,Delayed Release(Dr/Ec) 20 mg PO BID RF: 0 albuterol sulfate [Ventolin HFA] 90 mcg/actuation Hfa Aerosol Inhaler 2 puff INHALATION QID PRN (Reason: Shortness Of Breath Or Wheezing) RF: 0 potassium chloride 20 mEq tablet,ER particles/crystals 20 meq PO QAM RF: 0 ondansetron HCl 4 mg Tablet 4 mg PO Q8H PRN (Reason: Nausea) RF: 0 thiamine HCl (vitamin B1) 100 mg Tablet 100 mg PO BID RF: 0 nystatin 100,000 unit/gram Powder 1 applic TOPICAL TID PRN (Reason: Rash) RF: 0 cholecalciferol (vitamin D3) [Vitamin D3] 2,000 unit Capsule 2,000 unit PO BID RF: 0 vitamin A 10,000 unit Capsule 10,000 unit PO DAILY RF: 0 magnesium 200 mg Tablet 100 mg PO DAILY RF: 0 calcium citrate 200 mg (950 mg) Tablet 200 mg PO BID RF: 0 midodrine 10 mg Tablet 10 mg PO TID@0800,1200,1700 Qty: 30 RF: 0 zinc sulfate 220 (50) mg Capsule 220 mg PO QAM 30 Days Qty: 30 RF: 0 cyanocobalamin (vitamin B-12) 1,000 mcg/mL Solution 1,000 mcg IM MONTHLY RF: 0 venlafaxine 75 mg tablet 75 mg PO TID RF: 0 buspirone 10 mg tablet 10 mg PO BID RF: 0 mirtazapine 45 mg tablet 45 mg PO HS RF: 0 Flintstones Complete tablet,chewable 1 tab PO BID RF: 0 acetaminophen 325 mg Tablet 650 mg PO QID PRN (Reason: Pain) RF: 0 Discontinued warfarin [Coumadin] 2 mg Tablet 2 mg PO DAILY@1600 30 Days Qty: 30 RF: 0 Discharge Orders: Discharge Order (Routine); Ordered 06/11/19 Ordered By: Ailyn Cui Admission Data Admit Date/Time: 06/08/19 23:02 Attending Provider: Ailyn Cui Admit Provider: Mohan Carmona Primary Care Provider: Kvng Ceron Other Providers: Mohan Carmona Other Interventions: Discharge Summary Assessment (RN) Last Done: 06/11/19 14:01 DC Date/Time DO NOT enter until pt leaves facility: 06/11/19 15:21
[2019-06-19] MEDS ORDERED: CYANOCOBALAMIN 1000 MCG/ML VIAL IM SCH (09:00)
--- NOTE | 2019-07-01 05:54 | Coding Query ---
CODING QUERY To promote full compliance with coding requirements relating to patient care, provider participation is requested in all cases of shingle carrier uncertainty. Please assist us with the question(s) below: Coding Question(s): There is documentation in the record and on the Discharge Summary of Hospital Acquired Pneumonia and also there is documentation of possible Aspiration Pneumonitis in the setting of chronic alcohol use, vomiting. Please clarify below, in your clinical opinion, regarding the type of Pneumonia. ( ) Both Hospital Acquired Pneumonia and possible Aspiration Pneumonia ( ) Hospital Acquired Pneumonia only - the possible Aspiration Pneumonia is Ruled-out ( ) Possible Aspiration Pneumonia only ( + ) Other: Please Specify_Hospital acquired Pneumonia. Bilateral involvement.Doubt Aspiration. Physician's Response(s): Thank you Nazia Miranda Principal Diagnosis: "that condition established after study, to be chiefly responsible for occasioning the admission of the patient to the hospital for care." Co-Existing Principal Diagnosis: "when two or more diagnoses equally meet the criteria for principal diagnosis as determined by the circumstances of admission, diagnostic work up, and/or therapy provided, and the Alphabetic Index, Tabular List, or another coding guideline does not provide sequencing direction, any one of the diagnoses may be sequenced first." "When the physician has documented what appears to be a current diagnosis in the body of the record, but has not included the diagnosis in the final diagnostic statement, the physician should be asked whether the diagnosis should be added." (Source [facility]oding [facility] 2 QTR90. p3-4) MARCO
== END 2019-06-11 15:21 | disposition home health service (06) | DRG 193 ==
LOC: ED 15:51 → 2N 23:02

== ENCOUNTER 2020-04-06 16:05 | Inpatient (IN) ==
--- NOTE | 2020-04-06 16:09 | Emergency Department Note ---
Impression & Plan Pneumonia, Hypokalemia, Syncope, Hypomagnesemia, MALAIKA (acute kidney injury), Supratherapeutic INR ED Provider Note NAME: SAMY MADRID AGE: 59 SEX: F : 1960 ARRIVES VIA: Ambulance INFORMANT: Patient, ED PROVIDER(S): Marcin Thayer MD Chief Complaint: Syncope HPI: Patient had a brief episode of syncope earlier today. The patient has had some progressively worsening weakness. Per the patient's live-in boyfriend the patient has had worsening appetite. No seizure-like activity. The patient did have a feeding tube removed at [facility] in [facility] in February and is scheduled to have another placed this coming week. The patient does not complain of any fevers or chills. The patient was reported to be hypoxic in route and the patient was placed on 2 L nasal cannula. The patient does have a known history of alcohol abuse last used last night per the patient. The patient does typically drink vodka but denies using it today. The patient has had mild cough. The patient has been taking the Coumadin but has not been taking it recently as the patient has had an elevated INR and is scheduled to follow-up with Dr. Guillory. Patient has had decreased appetite. The patient states that she did have some lightheadedness prior to her syncopal event. No bowel or bladder incontinence or tongue biting. No BSG was checked prior to arrival. ROS: See HPI for pertinent positives and negatives. A total of 10 systems were reviewed and otherwise negative. Past medical history: See below Surgical history: See below Social history: See below Physical Exam: GENERAL: Chronically ill in appearance. EYE EXAM: Normal conjunctiva. PERRL, no anisocoria and EOM's grossly intact w/o pain. NECK: Supple, no nuchal rigidity, no adenopathy, non-tender. No signs of meningismus. LUNGS: Clear to auscultation. Normal chest wall mechanics. HEART: NSR, no MRG. ABDOMEN: Abdomen soft, non-tender, normo-active bowel sounds, no masses, no rebound or guarding. BACK: No CVA TTP. SKIN: Numerous areas of small ecchymosis as well as eschars over the bilateral upper extremities and chest. UPPER EXTREMITIES: Upper extremities are grossly normal. LOWER EXTREMITIES: Grossly normal, mild bilateral lower extremity edema. NEURO EXAM: A&O x3, cranial nerves II-XII grossly intact, normal speech, moves all 4 extremities on command w/o issue. Differential diagnoses: Vasovagal event, dehydration, infection, hypoglycemia, electrolyte abnormalities, cardiac sources, intracerebral event, pulmonary embolism, seizure, toxicologic, neurologic, as well as other pathologies. Course: Patient was seen and evaluated the bedside. Full history physical exam was performed. EKG: Indication: Syncope Normal sinus rhythm, rate 88, normal intervals, normal axis, no obvious ST changes. T wave inversions being read in the anterior leads may be present although there is significant motion artifact. Imaging Studies: Radiology results as stated below per my review in the radiologist's interpretation: XR chest 1V portable CLINICAL HISTORY: weakness COMPARISON STUDY: June 08, 2019 FINDINGS: The heart is normal in size. There are right mid to upper lung zone pulmonary airspace opacity suspicious for pneumonia. Clinical and radiographic follow-up is recommended. There is no failure. There are no pleural effusions.[ IMPRESSION: Right mid to upper lung zone airspace opacities suspicious for pneumonia. Clinical and radiographic follow-up is recommended. ACT 112: Negative or not required by law. Electronically signed by: Zachery Castro M.D. 04/06/2020 5:46 PM Dictated: 04/06/201744Transcribed: 04/06/201744 Cardiac monitoring: An order was placed for continuous cardiac monitoring. The monitor shows a rate of 86 with sinus rhythm. MDM: Patient has a normal white count with anemia. The patient's anemia appears chronic and stable running anywhere from the sevens to nines. The patient does have an elevated MCV. The patient's kidney function does show some MALAIKA with an elevated creatinine. The patient is baseline is less than 1 today is greater than 1 bordering on 2. The patient's magnesium is slightly low along with potassium. These were ordered for repleted. The patient was noted to be slightly hypotensive but does take midodrine. INR is elevated the patient was ordered antibiotics given concern for pneumonia seen on x-ray. Troponin is not detectable. I did speak the on-call hospitalist and the patient was to be admitted under Dr. Cam of [facility]. 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 Chronic obstructive pulmonary disease inhaler prn Congestive heart failure, unspecified (08/09/12) "echo 03/25/13-grade 1 diastolic dysfunction with mild concentric LVH" Degenerative disc disease Dyslipidemia Dysphagia Elevated liver enzymes per pt currently elevated Fatty liver Fibromyalgia GERD (gastroesophageal reflux disease) Hematoma of right lower extremity History of gastric ulcer Marijuana abuse Opiate abuse, continuous Organic sleep disorder Osteoarthritis Osteoarthritis Peripheral arterial disease Severe protein-calorie malnutrition Spinal stenosis Traumatic open wound of left lower leg Traumatic open wound of right lower leg Traumatic wound Venous stasis ulcer Surgical History Gastric bypass status for obesity H/O arthroscopic knee surgery " knee; 1998" History of arthroscopy of right knee History of cholecystectomy History of colonoscopy History of esophagogastroduodenoscopy (EGD) History of repair of hiatal hernia History of tooth extraction History of wisdom tooth extraction Hx of appendectomy Hx of gastric bypass Hx of repair of right rotator cuff S/P bronchoscopy Status post repair of paraesophageal diaphragmatic hernia "[place]. 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 Beliefs That Will Affect Care: None marital status: Current Living Situation: Significant Other Current Living Situation Comment: lives with fiance current occupational status: unemployed Feels Safe at Home: Yes during the past year weight has: other Assistive Devices: Walker Allergies Allergies Allergy/AdvReac Type Severity Reaction Status Date / Time codeine Allergy Intermediate Diarrhea/Ra Verified 04/06/20 18:44 sh duloxetine Allergy Intermediate Crawling Verified 04/06/20 18:44 out of her skin sensation NSAIDS (Non-Steroidal Allergy Unknown None Verified 04/06/20 18:44 Anti-Inflamma Bactrim AdvReac Intermediate DELIRIUM Verified 12/28/17 19:46 clonazepam AdvReac Intermediate Syncope Verified 04/06/20 18:44 hydrocodone AdvReac Intermediate Over Verified 04/06/20 18:44 sedated hydromorphone AdvReac Intermediate Weakness Verified 04/06/20 18:44 and sweating sulfamethoxazole AdvReac Intermediate DELIRIUM Verified 04/06/20 18:44 trimethoprim AdvReac Intermediate DELIRIUM Verified 04/06/20 18:44 aspirin AdvReac Mild STOMACH Verified 04/06/20 18:44 IRRITATION cephalexin AdvReac Mild GI SYMPTOMS Verified 09/29/19 14:46 Home Meds Home Medications Medication Instructions Recorded Confirmed albuterol sulfate [Ventolin HFA] 2 puff INHALATION QID PRN 01/04/18 04/06/20 omeprazole 20 mg PO BID 01/04/18 04/06/20 cyanocobalamin (vitamin B-12) 1,000 mcg IM MONTHLY 03/24/18 04/06/20 nystatin 1 applic TOPICAL TID PRN 11/20/18 04/06/20 ondansetron HCl 4 mg PO Q8H PRN 11/20/18 04/06/20 thiamine HCl (vitamin B1) 100 mg PO BID 11/20/18 04/06/20 buspirone 20 mg PO BID 04/26/19 04/06/20 venlafaxine 75 mg PO TID 04/26/19 04/06/20 vitamin A 10,000 unit PO QAM 05/17/19 04/06/20 acetaminophen 650 mg PO QID PRN 06/08/19 04/06/20 warfarin [Jantoven] 5 mg PO DAILY 09/29/19 04/06/20 ascorbic acid (vitamin C) [Vitamin 500 mg PO DAILY 04/06/20 04/06/20 C] calcium citrate-vitamin D3 1 tab PO BID 04/06/20 04/06/20 [Citracal + D Maximum] diphenhydramine HCl [Benadryl] 50 mg PO HS PRN 04/06/20 04/06/20 folic acid 1 mg PO DAILY 04/06/20 04/06/20 furosemide [Lasix] 20 mg PO DAILY 04/06/20 04/06/20 lidocaine 3 patch TOPICAL DAILY 04/06/20 04/06/20 loperamide [Imodium] 2 mg PO UD PRN 04/06/20 04/06/20 magnesium chloride 64 mg PO BID 04/06/20 04/06/20 pedi multivit 17-iron fumarate 1 tab PO BID 04/06/20 04/06/20 [Flintstones Plus Iron] silver sulfadiazine [Silvadene] 1 applic TOPICAL UD PRN 04/06/20 04/06/20 trazodone 50 mg PO HS 04/06/20 04/06/20 zinc sulfate 220 mg PO DAILY 04/06/20 04/06/20 Previous Rx's Medication Instructions Recorded midodrine 10 mg PO TID@0800,1200,1700 #30 tab 05/25/19 Results & Data (ED) Vital Signs Vital Signs - 24 hr 04/06/20 16:12 04/06/20 16:25 04/06/20 16:31 Temperature 36.4 C L Temperature Source Oral Pulse Rate 90 100 H Pulse Rate from SpO2 Sensor 87 Respiratory Rate 24 19 Respiratory Effort / Characteristics Non-Labored Respiratory Depth Normal Blood Pressure 110/64 85/49 L Blood Pressure Mean 79 75 Pulse Oximetry 88 L 100 Oxygen Delivery Method Room Air Room Air Room Air Sepsis Recent Fever Within 48 Hours No Sepsis New/Unexplained Change in Mental Status N/A Sepsis Action Taken by Nursing No Action Required 04/06/20 16:34 04/06/20 17:00 04/06/20 17:01 Temperature Temperature Source Pulse Rate 134 H 87 87 Pulse Rate from SpO2 Sensor 87 88 Respiratory Rate 17 23 18 Respiratory Effort / Characteristics Respiratory Depth Blood Pressure 88/59 L Blood Pressure Mean 69 Pulse Oximetry 100 100 98 Oxygen Delivery Method Room Air Room Air Room Air Sepsis Recent Fever Within 48 Hours Sepsis New/Unexplained Change in Mental Status Sepsis Action Taken by Nursing 04/06/20 17:07 04/06/20 17:09 04/06/20 17:30 Temperature Temperature Source Pulse Rate 93 H 90 Pulse Rate from SpO2 Sensor 87 88 Respiratory Rate 17 24 Respiratory Effort / Characteristics Respiratory Depth Blood Pressure 83/59 L 82/54 L Blood Pressure Mean 64 60 Pulse Oximetry 100 100 100 Oxygen Delivery Method Room Air Room Air Room Air Sepsis Recent Fever Within 48 Hours Sepsis New/Unexplained Change in Mental Status Sepsis Action Taken by Nursing 04/06/20 18:00 04/06/20 18:01 04/06/20 18:30 Temperature Temperature Source Pulse Rate 91 H 86 Pulse Rate from SpO2 Sensor 87 87 87 Respiratory Rate 18 20 21 Respiratory Effort / Characteristics Respiratory Depth Blood Pressure 96/83 L 74/52 L Blood Pressure Mean 89 57 Pulse Oximetry 96 93 100 Oxygen Delivery Method Room Air Room Air Room Air Sepsis Recent Fever Within 48 Hours Sepsis New/Unexplained Change in Mental Status Sepsis Action Taken by Nursing 04/06/20 18:31 04/06/20 18:34 Temperature Temperature Source Pulse Rate 86 88 Pulse Rate from SpO2 Sensor 86 89 Respiratory Rate 18 22 Respiratory Effort / Characteristics Respiratory Depth Blood Pressure 101/61 Blood Pressure Mean 67 Pulse Oximetry 100 100 Oxygen Delivery Method Room Air Room Air Sepsis Recent Fever Within 48 Hours Sepsis New/Unexplained Change in Mental Status Sepsis Action Taken by [facility] Medications Current Medication List: was personally reviewed by me Laboratory Data Attestation: I reviewed the patient's lab results. Result diagrams: 04/06/20 16:55 04/06/20 16:55 Lab Results 04/06/20 04/06/20 04/06/20 Range/Units 16:25 16:25 16:55 WBC 9.54 (4.8-10.8) K/uL RBC 2.23 L (4.2-5.4) M/uL Hgb 7.8 L (12.0-16.0) g/dL Hct 22.9 L (37-47) % MCV 102.7 H (80-100) fL MCH 35.0 H (25-34) pg MCHC 34.1 (32-36) g/dL RDW Std Deviation 66.8 H (36.4-46.3) fL RDW Coeff of Liz 18.0 H (11.5-14.5) % Plt Count 184 (130-400) K/uL MPV 9.5 (7.4-10.4) fL Immature Gran % (Auto) 0.3 % Neut % (Auto) 77.3 % Lymph % (Auto) 13.0 % [place] % (Auto) 7.5 % Eos % (Auto) 1.5 % Baso % (Auto) 0.4 % Neut # (Auto) 7.37 H (1.4-6.5) K/uL Lymph # (Auto) 1.24 (1.2-3.4) K/uL [place] # (Auto) 0.72 H (0.11-0.59) K/uL Eos # (Auto) 0.14 (0-0.5) K/uL Baso # (Auto) 0.04 (0-0.2) K/uL Immature Gran # (Auto) 0.03 H (0.00-0.02) K/uL Polychromasia 1+ Target Cells 1+ PT INR APTT PTT Ratio Sodium (136-145) mmol/L Potassium (3.5-5.1) mmol/L Chloride (98-107) mmol/L Carbon Dioxide (21-32) mmol/L Anion Gap (3-11) BUN (7-18) mg/dl Creatinine (0.6-1.2) mg/dl Est Cr Clr Drug Dosing ml/min Est GFR ( Amer) Est GFR (Non-Af Amer) BUN/Creatinine Ratio (10-20) Glucose (70-99) mg/dl Calcium (8.5-10.1) mg/dl Magnesium (1.8-2.4) mg/dl Total Bilirubin (0.2-1) mg/dl AST (15-37) U/L ALT (12-78) U/L Alkaline Phosphatase (45-117) U/L Troponin I (0-0.045) ng/ml Total Protein (6.4-8.2) gm/dl Albumin (3.4-5.0) gm/dl Globulin (2.5-4.0) gm/dl Albumin/Globulin Ratio (0.9-2) Procalcitonin (0-0.5) ng/ml TSH (0.300-4.500) uIu/ml Free T4 (0.8-1.6) ng/dl Ethyl Alcohol mg/dL (0-3) mg/dl COVID-19 Eval Order Covid19 IDNow atMLAC SARS-CoV-2, RNA, NAAT NEGATIVE (NEGATIVE) 04/06/20 04/06/20 04/06/20 Range/Units 16:55 16:55 16:55 WBC (4.8-10.8) K/uL RBC (4.2-5.4) M/uL Hgb (12.0-16.0) g/dL Hct (37-47) % MCV (80-100) fL MCH (25-34) pg MCHC (32-36) g/dL RDW Std Deviation (36.4-46.3) fL RDW Coeff of Liz (11.5-14.5) % Plt Count (130-400) K/uL MPV (7.4-10.4) fL Immature Gran % (Auto) % Neut % (Auto) % Lymph % (Auto) % [place] % (Auto) % Eos % (Auto) % Baso % (Auto) % Neut # (Auto) (1.4-6.5) K/uL Lymph # (Auto) (1.2-3.4) K/uL [place] # (Auto) (0.11-0.59) K/uL Eos # (Auto) (0-0.5) K/uL Baso # (Auto) (0-0.2) K/uL Immature Gran # (Auto) (0.00-0.02) K/uL Polychromasia Target Cells PT Cancelled INR Cancelled APTT Cancelled PTT Ratio Cancelled Sodium 138 (136-145) mmol/L Potassium 2.9 L (3.5-5.1) mmol/L Chloride 104 (98-107) mmol/L Carbon Dioxide 27 (21-32) mmol/L Anion Gap 7.0 (3-11) BUN 17 (7-18) mg/dl Creatinine 1.93 H (0.6-1.2) mg/dl Est Cr Clr Drug Dosing 31.2 ml/min Est GFR ( Amer) 32.3 Est GFR (Non-Af Amer) 27.8 BUN/Creatinine Ratio 8.7 L (10-20) Glucose 105 H (70-99) mg/dl Calcium 8.3 L (8.5-10.1) mg/dl Magnesium 1.7 L (1.8-2.4) mg/dl Total Bilirubin 1.2 H (0.2-1) mg/dl AST 36 (15-37) U/L ALT 35 (12-78) U/L Alkaline Phosphatase 249 H (45-117) U/L Troponin I < 0.015 (0-0.045) ng/ml Total Protein 4.7 L (6.4-8.2) gm/dl Albumin 1.1 L (3.4-5.0) gm/dl Globulin 3.6 (2.5-4.0) gm/dl Albumin/Globulin Ratio 0.3 L (0.9-2) Procalcitonin (0-0.5) ng/ml TSH 9.060 H (0.300-4.500) uIu/ml Free T4 0.79 L (0.8-1.6) ng/dl Ethyl Alcohol mg/dL < 3.0 (0-3) mg/dl COVID-19 Eval Order SARS-CoV-2, RNA, NAAT (NEGATIVE) 04/06/20 04/06/20 Range/Units 16:56 17:28 WBC (4.8-10.8) K/uL RBC (4.2-5.4) M/uL Hgb (12.0-16.0) g/dL Hct (37-47) % MCV (80-100) fL MCH (25-34) pg MCHC (32-36) g/dL RDW Std Deviation (36.4-46.3) fL RDW Coeff of Liz (11.5-14.5) % Plt Count (130-400) K/uL MPV (7.4-10.4) fL Immature Gran % (Auto) % Neut % (Auto) % Lymph % (Auto) % [place] % (Auto) % Eos % (Auto) % Baso % (Auto) % Neut # (Auto) (1.4-6.5) K/uL Lymph # (Auto) (1.2-3.4) K/uL [place] # (Auto) (0.11-0.59) K/uL Eos # (Auto) (0-0.5) K/uL Baso # (Auto) (0-0.2) K/uL Immature Gran # (Auto) (0.00-0.02) K/uL Polychromasia Target Cells PT 71.8 H INR 7.6 H* APTT 88.5 H* PTT Ratio 3.2 Sodium (136-145) mmol/L Potassium (3.5-5.1) mmol/L Chloride (98-107) mmol/L Carbon Dioxide (21-32) mmol/L Anion Gap (3-11) BUN (7-18) mg/dl Creatinine (0.6-1.2) mg/dl Est Cr Clr Drug Dosing ml/min Est GFR ( Amer) Est GFR (Non-Af Amer) BUN/Creatinine Ratio (10-20) Glucose (70-99) mg/dl Calcium (8.5-10.1) mg/dl Magnesium (1.8-2.4) mg/dl Total Bilirubin (0.2-1) mg/dl AST (15-37) U/L ALT (12-78) U/L Alkaline Phosphatase (45-117) U/L Troponin I (0-0.045) ng/ml Total Protein (6.4-8.2) gm/dl Albumin (3.4-5.0) gm/dl Globulin (2.5-4.0) gm/dl Albumin/Globulin Ratio (0.9-2) Procalcitonin 1.03 H (0-0.5) ng/ml TSH (0.300-4.500) uIu/ml Free T4 (0.8-1.6) ng/dl Ethyl Alcohol mg/dL (0-3) mg/dl COVID-19 Eval Order SARS-CoV-2, RNA, NAAT (NEGATIVE) Administered Medications Discontinued Medications Calcium Carbonate (Calcium Carbonate 500 Mg Chewable Tab) 1,500 mg PO NOW STA Stop: 04/06/20 17:43 Last Admin: 04/06/20 17:55 Dose: 1,500 mg Documented by: [id number] Sodium Chloride (Nss) 500 mls @ 999 mls/hr IV .Q31M VERO Stop: 04/06/20 17:00 Last Infusion: 04/06/20 17:40 Dose: 0 mls/hr Documented by: [id number] Admin: 04/06/20 17:09 Dose: 999 mls/hr Documented by: [id number] Magnesium Sulfate/Dextrose (Magnesium Sulfate / D5w) 1 gm in 100 mls @ 200 mls/hr IV NOW STA Stop: 04/06/20 18:10 Last Infusion: 04/06/20 18:24 Dose: 0 mls/hr Documented by: [id number] Admin: 04/06/20 17:54 Dose: 200 mls/hr Documented by: [id number] Sodium Chloride (Nss 1000ml) 1,000 mls @ 999 mls/hr IV .Q1H1M ONE Stop: 04/06/20 19:23 Last Infusion: 04/06/20 20:11 Dose: 0 mls/hr Documented by: [id number] Admin: 04/06/20 18:35 Dose: 999 mls/hr Documented by: [id number] Midodrine (Midodrine Hcl 10 Mg Tab) 10 mg PO TID@0800,1200,1700 STA Stop: 04/06/20 18:24 Last Admin: 04/06/20 19:26 Dose: 10 mg Documented by: [id number] Potassium Chloride (Potassium Chloride Crtab 20 Meq Tabcr) 40 meq PO NOW STA Stop: 04/06/20 17:42 Last Admin: 04/06/20 17:54 Dose: 40 meq Documented by: [id number] Discharge Plan Visit Data Chief Complaint: Syncope Stated Complaint: SYNCOPE, WEAKNESS ED Provider: Marcin Thayer Discharge Problem: Pneumonia, Hypokalemia, Syncope, Hypomagnesemia, MALAIKA (acute kidney injury), Supratherapeutic INR Patient Disposition: Admitted As Inpatient Discharge Instructions Interventions: ED Discharge Assessment Last Done: 04/06/20 19:36
[2020-04-06] MEDS ORDERED: SODIUM CHLORIDE 0.9% 500 ML IV SCH (16:30)
[2020-04-06 17:07] LABS: Basophils # (auto) 0.04 K/uL (0-0.2); Basophils % (auto) 0.4 %; Eosinophils # (auto) 0.14 K/uL (0-0.5); Eosinophils % (auto) 1.5 %; Hematocrit (blood only) 22.9 % (37-47); Hemoglobin 7.8 g/dL (12.0-16.0); Immature Granulocytes # (auto) 0.03 K/uL (0.00-0.02); Immature Granulocytes % (auto) 0.3 %; Lymphocytes # (auto) 1.24 K/uL (1.2-3.4); Mean Corpuscular Hgb Conc 34.1 g/dL (32-36); Mean Corpuscular Volume 102.7 fL (80-100); Mean Platelet Volume 9.5 fL (7.4-10.4); Monocytes # (auto) 0.72 K/uL (0.11-0.59); Monocytes % (auto) 7.5 %; Neutrophils # (auto) 7.37 K/uL (1.4-6.5); Neutrophils % (auto) 77.3 %; Platelet Count 184 K/uL (130-400); RDW Standard Deviation 66.8 fL (36.4-46.3); Red Blood Count 2.23 M/uL (4.2-5.4); White Blood Count 9.54 K/uL (4.8-10.8)
[2020-04-06 17:24] LABS: Alanine Aminotransferase 35 U/L (12-78); Albumin Level 1.1 gm/dl (3.4-5.0); Aspartate Aminotransferase 36 U/L (15-37); BUN Creatinine Ratio 8.7 (10-20); Blood Urea Nitrogen 17 mg/dl (7-18); Calcium 8.3 mg/dl (8.5-10.1); Carbon Dioxide 27 mmol/L (21-32); Chloride 104 mmol/L (98-107); Creatinine Clr Calc Pharmacy 31.2 ml/min; Est GFR (African American) 32.3; Est GFR (Non-African American) 27.8; Glucose 105 mg/dl (70-99); Magnesium 1.7 mg/dl (1.8-2.4); Potassium 2.9 mmol/L (3.5-5.1); Sodium 138 mmol/L (136-145)
[2020-04-06 17:28] LABS: Polychromasia 1+; Target Cells 1+
[2020-04-06 17:35] LABS: Albumin Globulin Ratio 0.3 (0.9-2); Alkaline Phosphatase 249 U/L (45-117); Bilirubin,Total 1.2 mg/dl (0.2-1); Globulin 3.6 gm/dl (2.5-4.0); Total Protein 4.7 gm/dl (6.4-8.2); Troponin I < 0.015 ng/ml (0-0.045)
[2020-04-06] MEDS ORDERED: POTASSIUM CHLORIDE CRTAB 20 MEQ TABCR PO STA (17:41)
[2020-04-06] MEDS ORDERED: MAGNESIUM SULFATE / D5W 1 GM/100 ML BAG IV STA (17:41)
[2020-04-06] MEDS ORDERED: CALCIUM CARBONATE 500 MG CHEWABLE TAB PO STA (17:42)
[2020-04-06 17:47] LABS: T4 Free Thyroxine 0.79 ng/dl (0.8-1.6)
--- NOTE | 2020-04-06 17:47 | XRay Report ---
XR chest 1V portable CLINICAL HISTORY: weakness COMPARISON STUDY: June 08, 2019 FINDINGS: The heart is normal in size. There are right mid to upper lung zone pulmonary airspace opac ity suspicious for pneumonia. Clinical and radiographic follow-up is recommended. There is no failure . There are no pleural effusions.[ IMPRESSION: Right mid to upper lung zone airspace opacities suspicious for pneumonia. Clinical and ra diographic follow-up is recommended. ACT 112: Negative or not required by law. Electronically signed by: Zachery Castro M.D. 04/06/2020 5:46 PM
[2020-04-06 17:58] LABS: Partial Thromboplastin Ratio 3.2; Prothrombin Time 71.8 Seconds (9.0-12.0)
[2020-04-06 18:16] LABS: INR 7.6 (0.9-1.1); Partial Thromboplastin Time 88.5 Seconds (21.0-31.0)
[2020-04-06] MEDS ORDERED: MIDODRINE HCL 10 MG TAB PO STA (18:23)
[2020-04-06] MEDS ORDERED: SODIUM CHLORIDE 0.9% 1000ML 1,000 ML IV ONE (18:23)
[2020-04-06] MEDS ORDERED: PIPERACILLIN/TAZOBACTAM 4.5 GM/120 ML BAG IV ONE (18:51)
[2020-04-06] MEDS ORDERED: PIPERACILL/TAZOBAC CONSULT ACTIVE PRN ×2 (18:51→20:06)
[2020-04-06] MEDS ORDERED: PHYTONADIONE 2.5 MG in SODIUM CHLORIDE 0.9% 50 ML IV ONE (19:30)
--- NOTE | 2020-04-06 19:54 | History & Physical Report ---
Date of Service April 06, 2020 Assessment & Plan (1) Pneumonia involving right lung: This is a 59-year-old female who has significant past medical history of gastric bypass, severe protein calorie malnutrition, recent history of gastrotomy tube removed 02/02 secondary to recurrent fungal infection, history of PE on warfarin, chronic diastolic CHF, alcohol abuse, tobacco abuse, fibromyalgia, depression, intestinal postoperative nonabsorption, esophageal dysphagia, orthostatic hypotension, hyperlipidemia who presents to ED secondary to weakness for several weeks. admit to PCU Initiate zosyn - concern for aspiration MRSA swab ordered - if + add vanco incentive spirometry O2 if needed blood cultures pending consult ST - pt seen in past - will have them re evaluate (2) Acute renal failure superimposed on stage 3a chronic kidney disease: Baseline creatinine 1.3 BUN/creatinine 17 and 1.93 today Obtain urine, hold Lasix and avoid nephrotoxic agent, monitor I and O Receiving gentle IVF as well as IV albumin If no improvement consider nephrology evaluation (3) Hypokalemia: K2.9 Received 40 M EQ p.o. KCl in ED, 10 meq KCL x 2 IV ordered bmp @ 2200 and in a.m. (4) Hypomagnesemia: Mag 1.7 Replace with 1 g IV mag sulfate Repeat in a.m. (5) Anemia: Anemia of chronic disease in setting of malnutrition and gastric bypass On thiamine and folic acid daily along with B12 monthly Hemoglobin / was 9.9, H&H 7.8 and 22.9 today No reports of melena or bleeding Obtain FOBT Type and cross for 2 units, hold Monitor H&H, recheck at 2200 Consult GI for anemia in setting of elevated INR as well as concern for malnutrition (6) Hypotension: Patient with orthostatic hypotension as outpatient, on midodrine 3 times daily In ED she did have episode of hypotension, BPs 80s over 50s but not tachycardic This was during administration of IV magnesium as well as she was due for her midodrine According to outpatient records Bp 100s/60s mostly monitor closely, continue midodrine (7) Supratherapeutic INR: INR 7.6 Hold Coumadin, IV vitamin K 2.5 ordered Monitor INR No current signs or symptoms of bleeding (8) Elevated TSH: TSH 9, free T4 low Prior outpatient thyroid function test unremarkable Would recommend repeat in 2 weeks and follow-up with PCP (9) Alcohol abuse: Drinks 5 ounces of hard liquor daily per fianc AWSS scale ordered IV thiamine 100 mg daily x3 days and then resume oral Monitor closely for signs of withdrawal (10) Tobacco use disorder: Encourage smoking cessation Nicotine patch ordered (11) Chronic diastolic (congestive) heart failure: Patient with lower extremity edema but likely in setting of third spacing due to hypoalbuminemia No signs of pulmonary vascular congestion, monitor volume status closely Daily weights, strict I's and O's Lasix on hold in setting of MALAIKA Monitor (12) Dyslipidemia: Continue statin (13) Severe protein-calorie malnutrition: Albumin 1.1 Consult dietitian for further assessment regarding nutritional needs as it is not being met orally Had feeding tube placed and removed on 02/02 May need to get general surgery involvement as well 25 g IV albumin x1 ordered Teds for lower extremity edema (14) Pulmonary embolism: History of PE with cor pulmonale on warfarin INR supratherapeutic, IV vitamin K 2.5 mg given Hold warfarin, monitor INR -no current signs or symptoms of bleeding TERRY stockings Disposition: Admit to PCU Follow-up: PCP Dr. Ceron upon discharge, she has outpatient follow-up with general surgery in [place] on 04/11 as well as nutrition for discussion about G- tube reinsertion Patient was seen and examined in collaboration with Dr. Cam, see addendum Please contact patient maribeth Watson [phone] with updates Admission and Anticipated Discharge Date Admission Date: April 06, 2020 History of Present Illness Chief Complaint: Weakness times several weeks. Primary Care Provider: Kvng Ceron, This is a 59-year-old female who has significant past medical history of gastric bypass, severe protein calorie malnutrition, recent history of gastrotomy tube removed 02/02 secondary to recurrent fungal infection, history of PE on warfarin, chronic diastolic CHF, alcohol abuse, tobacco abuse, fibromyalgia, depression, intestinal postoperative nonabsorption, esophageal dysphagia, orthostatic hypotension, hyperlipidemia who presents to ED secondary to weakness for several weeks. She lives at home with her maribeth. He is mostly her multimedia coordinator. He has known her for the past 2 years. She was doing well up until the removal of her G-tube on 02/02. She had G-tube in place secondary to severe protein calorie malnutrition and was removed secondary to recurrent fungal infection surrounding the tube. Since removal of the tubes she has been steadily going downhill, becoming increasingly weak, less active and continuing to have minimal p.o. intake. He tries to encourage feedings, but patient just states, "nothing tastes right." He tries to encourage beef bone broth to offer high-protein and she does drink this about 4 ounces daily but otherwise intake is minimal. Over the past week she has had 3 episodes whenever he fully assist her to the bathroom where she goes limp in his arms for seconds, but is able to communicate. No feliz syncope. She is very weak to the point he is unable to mobilize her. He feels most of her current conditions are secondary to her malnutrition. She does smoke 2 packs a day and drinks approximately 5 ounces of hard liquor daily. She does have a chronic cough that is nonproductive. He denies any coughing with meals. She denies fever, chills, sweats, syncope, chest pain, shortness of breath, palpitations, nausea, vomiting, abdominal pain, dysuria, increased urgency or frequency with urination, melena, hematochezia, or hematuria. She does have chronic lower extremity edema and has a small skin tear to her right nichols secondary to cat scratch. Her edema has been getting worse. Per fianc her baseline weight is approximately 110 when she was on the feeding tube and is up to 170 pounds. She has not left the house in over 2 w eeks. She does admit to getting lightheaded and dizzy when standing. This resolves when she is sitting. In ED patient was initially hemodynamically stable, but did become hypotensive 80s over 50s. She was not tachycardic and she was afebrile. She was saturating on room air. Significant lab abnormalities include H&H 7.8 and 22.9, INR 7.6, potassium 2.9, creatinine 1.93, mag 1.7, albumin 1.1, pro-Prem 1.03, TSH 9.06, free T4 0.79. Covid screen negative. Ethyl alcohol WNL. Chest x-ray concerning for right upper and mid lung opacity. She did receive 1 g IV magnesium and 40 mEq of p.o. potassium. Blood cultures were obtained and IV Zosyn was ordered. She initially received 500 mL of IVF and went became hypotensive was ordered additional 1 L. She does take midodrine 10 mg 3 times daily and this was administered in ER. Allergies Allergy/AdvReac Type Severity Reaction Status Date / Time codeine Allergy Intermediate Diarrhea/Ra Verified 04/06/20 18:44 sh duloxetine Allergy Intermediate Crawling Verified 04/06/20 18:44 out of her skin sensation NSAIDS (Non-Steroidal Allergy Unknown None Verified 04/06/20 18:44 Anti-Inflamma Bactrim AdvReac Intermediate DELIRIUM Verified 12/28/17 19:46 clonazepam AdvReac Intermediate Syncope Verified 04/06/20 18:44 hydrocodone AdvReac Intermediate Over Verified 04/06/20 18:44 sedated hydromorphone AdvReac Intermediate Weakness Verified 04/06/20 18:44 and sweating sulfamethoxazole AdvReac Intermediate DELIRIUM Verified 04/06/20 18:44 trimethoprim AdvReac Intermediate DELIRIUM Verified 04/06/20 18:44 aspirin AdvReac Mild STOMACH Verified 04/06/20 18:44 IRRITATION cephalexin AdvReac Mild GI SYMPTOMS Verified 09/29/19 14:46 Home Medications Medication Instructions Recorded Confirmed Type albuterol sulfate [Ventolin HFA] 2 puff INHALATION QID PRN 01/04/18 04/06/20 History omeprazole 20 mg PO BID 01/04/18 04/06/20 History cyanocobalamin (vitamin B-12) 1,000 mcg IM MONTHLY 03/24/18 04/06/20 History nystatin 1 applic TOPICAL TID PRN 11/20/18 04/06/20 History ondansetron HCl 4 mg PO Q8H PRN 11/20/18 04/06/20 History thiamine HCl (vitamin B1) 100 mg PO BID 11/20/18 04/06/20 History buspirone 20 mg PO BID 04/26/19 04/06/20 History venlafaxine 75 mg PO TID 04/26/19 04/06/20 History vitamin A 10,000 unit PO QAM 05/17/19 04/06/20 History midodrine 10 mg PO TID@0800,1200,1700 #30 tab 05/25/19 04/06/20 Rx acetaminophen 650 mg PO QID PRN 06/08/19 04/06/20 History warfarin [Jantoven] 5 mg PO DAILY 09/29/19 04/06/20 History ascorbic acid (vitamin C) [Vitamin 500 mg PO DAILY 04/06/20 04/06/20 History C] calcium citrate-vitamin D3 1 tab PO BID 04/06/20 04/06/20 History [Citracal + D Maximum] diphenhydramine HCl [Benadryl] 50 mg PO HS PRN 04/06/20 04/06/20 History folic acid 1 mg PO DAILY 04/06/20 04/06/20 History furosemide [Lasix] 20 mg PO DAILY 04/06/20 04/06/20 History lidocaine 3 patch TOPICAL DAILY 04/06/20 04/06/20 History loperamide [Imodium] 2 mg PO UD PRN 04/06/20 04/06/20 History magnesium chloride 64 mg PO BID 04/06/20 04/06/20 History pedi multivit 17-iron fumarate 1 tab PO BID 04/06/20 04/06/20 History [Flintstones Plus Iron] silver sulfadiazine [Silvadene] 1 applic TOPICAL UD PRN 04/06/20 04/06/20 History trazodone 50 mg PO HS 04/06/20 04/06/20 History zinc sulfate 220 mg PO DAILY 04/06/20 04/06/20 History Past Med/Surg History Medical History (Updated 04/06/20 @ 20:20 by Kiara Mansfield PA-C) Anxiety Cardiac murmur faint CHF (congestive heart failure) hx of Chronic back pain Chronic diastolic (congestive) heart failure Chronic kidney disease, stage 3 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 Chronic obstructive pulmonary disease inhaler prn Congestive heart failure, unspecified (08/09/12) "echo 03/25/13-grade 1 diastolic dysfunction with mild concentric LVH" Degenerative disc disease Dyslipidemia Dysphagia Elevated liver enzymes per pt currently elevated Fatty liver Fibromyalgia GERD (gastroesophageal reflux disease) Hematoma of right lower extremity History of gastric ulcer Marijuana abuse Opiate abuse, continuous Organic sleep disorder Osteoarthritis Osteoarthritis Peripheral arterial disease Severe protein-calorie malnutrition Spinal stenosis Traumatic open wound of left lower leg Traumatic open wound of right lower leg Traumatic wound Venous stasis ulcer Surgical History Gastric bypass status for obesity H/O arthroscopic knee surgery "; 1998" History of arthroscopy of right knee History of cholecystectomy History of colonoscopy History of esophagogastroduodenoscopy (EGD) History of repair of hiatal hernia History of tooth extraction History of wisdom tooth extraction Hx of appendectomy Hx of gastric bypass Hx of repair of right rotator cuff S/P bronchoscopy Status post repair of paraesophageal diaphragmatic hernia [place]. [place] [facility] [place]" Family History Other Family history not known due to adoption Social History Smoking Status: Current every day smoker Tobacco Type: Cigarettes packs per day: 2; Cigarettes Per Day: Pack; Second Hand Exposure: Yes (father smokes); Hx Alcohol Use: No Hx Substance Use: No Preferred Language: Barbadian Communication Ability: Effective Visual Impairment: No Limitations Hearing Ability: Normal Electrophysiology Nurse Practitioner Required: No Beliefs That Will Affect Care: None marital status: Current Living Situation: Spouse Current Living Situation Comment: lives with fiance current occupational status: unemployed Other Information That Helps Us Care for You: No Feels Safe at Home: Yes Safety Concerns: Feels Safe At This Time during the past year weight has: other Assistive Devices: Glasses Review of Systems Review of Systems: All systems reviewed & are unremarkable except as noted in HPI & below Physical Exam 2 Physical Exam: Constitutional: Chronically ill-appearing female, pale, malnourished appearing, vitals as above, NAD, sitting up in bed, answers questions appropriately Head: Normocephalic, Atraumatic Eyes: PERRL, conjunctivae normal, anicteric sclerae ENMT: external ear and nose normal, oropharynx normal Neck: trachea midline, no thyromegaly normal visual inspection Respiratory: normal respiratory effort, lungs clear to auscultation, no wheeze, rales, rhonchi. Normal insp/exp effort, no accessory muscle use Cardiovascular: RRR, no murmur, bilateral lower extremity +2 edema with venous stasis changes Vessels: no JVD or carotid bruit Chest: normal inspection of chest Abdomen: normal bowel sounds, soft, nontender, no hepatosplenomegaly appreciated Musculoskeletal: no cyanosis or clubbing, extremities motor strength 5/5 Skin: Patient with multiple skin excoriations on anterior and posterior thorax and upper and lower extremities, skin tear to right pretibial surface, no evidence of cellulitis, warm and dry normal turgor Neurologic: PERRL, EOMI, accommodation nl, no face palsy, no dysarthria CN's II-XI intact bilaterally and moves all extremities Psychiatric: A+Ox3, euthymic affect Lymphatic: no cervical or axillary lymphadenopathy : deferred Results & Data Results & Data ([facility]) Vital Signs (Past 12 Hours) Vital Signs Temp Pulse Pulse Resp BP BP Pulse Ox 04/06/20 19:22 86 18 92/55 L 100 04/06/20 18:34 88 22 101/61 100 04/06/20 18:31 86 18 100 04/06/20 18:30 86 21 74/52 L 100 04/06/20 18:01 20 93 04/06/20 18:00 91 H 18 96/83 L 96 04/06/20 17:30 90 24 82/54 L 100 04/06/20 17:09 100 04/06/20 17:07 93 H 17 83/59 L 100 04/06/20 17:01 87 18 88/59 L 98 04/06/20 17:00 87 23 100 04/06/20 16:34 134 H 17 100 04/06/20 16:31 100 H 19 85/49 L 100 04/06/20 16:12 36.4 C L 90 24 110/64 88 L Laboratory Results Short CBC 04/06/20 04/06/20 Range/Units 16:55 16:55 WBC 9.54 (4.8-10.8) K/uL Hgb 7.8 L (12.0-16.0) g/dL Hct 22.9 L (37-47) % Plt Count 184 (130-400) K/uL Creatinine 1.93 H (0.6-1.2) mg/dl BMP 04/06/20 16:55 Sodium 138 Potassium 2.9 L Chloride 104 Carbon Dioxide 27 BUN 17 Creatinine 1.93 H Glucose 105 H Calcium 8.3 L Cardiac Enzymes 04/06/20 Range/Units 16:55 Troponin I < 0.015 (0-0.045) ng/ml Liver Function 04/06/20 Range/Units 16:55 Total Bilirubin 1.2 H (0.2-1) mg/dl AST 36 (15-37) U/L ALT 35 (12-78) U/L Alkaline Phosphatase 249 H (45-117) U/L Albumin 1.1 L (3.4-5.0) gm/dl Diagnostic Findings CXR: IMPRESSION: Right mid to upper lung zone airspace opacities suspicious for pneumonia. Clinical and radiographic follow-up is recommended. Medications Administered Discontinued Medications Calcium Carbonate (Calcium Carbonate 500 Mg Chewable Tab) 1,500 mg PO NOW STA Stop: 04/06/20 17:43 Last Admin: 04/06/20 17:55 Dose: 1,500 mg Documented by: [id number] Sodium Chloride (Nss) 500 mls @ 999 mls/hr IV .Q31M VERO Stop: 04/06/20 17:00 Last Infusion: 04/06/20 17:40 Dose: 0 mls/hr Documented by: [id number] Admin: 04/06/20 17:09 Dose: 999 mls/hr Documented by: [id number] Magnesium Sulfate/Dextrose (Magnesium Sulfate / D5w) 1 gm in 100 mls @ 200 mls/hr IV NOW STA Stop: 04/06/20 18:10 Last Infusion: 04/06/20 18:24 Dose: 0 mls/hr Documented by: [id number] Admin: 04/06/20 17:54 Dose: 200 mls/hr Documented by: [id number] Sodium Chloride (Nss 1000ml) 1,000 mls @ 999 mls/hr IV .Q1H1M ONE Stop: 04/06/20 19:23 Last Admin: 04/06/20 18:35 Dose: 999 mls/hr Documented by: [id number] Midodrine (Midodrine Hcl 10 Mg Tab) 10 mg PO TID@0800,1200,1700 STA Stop: 04/06/20 18:24 Last Admin: 04/06/20 19:26 Dose: 10 mg Documented by: [id number] Potassium Chloride (Potassium Chloride Crtab 20 Meq Tabcr) 40 meq PO NOW STA Stop: 04/06/20 17:42 Last Admin: 04/06/20 17:54 Dose: 40 meq Documented by: [id number] ECG Rate (beats per minute): 88 Rhythm: normal sinus Code Status & VTE Plan Code Status Full Code VTE Prophylaxis Plan VTE Prophylaxis will be ordered: No Reason for no VTE drug order: Contraindicated Supervising Physician Co-Signing Physician Notes Patient seen examined by me, care coordinated with Kiara Mansfield PA-C, please refer to her note above for further detail. Pt is a 59-year-old female who has significant past medical history of gastric bypass, severe protein calorie malnutrition, recent history of gastrotomy tube removed 02/02 secondary to recurrent fungal infection, history of PE and cor pulmonale on warfarin, chronic diastolic CHF, alcohol abuse, tobacco abuse, fibromyalgia, depression, intestinal postoperative nonabsorption, esophageal dysphagia, orthostatic hypotension, hyperlipidemia who presents to ED secondary to weakness for several weeks. Patient denies ever losing consciousness, and reports leg weakness as a cause of her falls, per discussion with maribeth, she was doing well up until the removal of her G-tube on 02/02. In the ED patient was sitting up in bed, in no acute distress, alert and oriented answering questions appropriately. She appeared weak, chronically ill, malnourished. Heart sounds are regular, bilateral lower extremity edema due to venous stasis noted. Lung sounds overall clear, no wheezing rales or rhonchi noted no accessory muscle use or increased respiratory effort noted. Patient was able to answer questions in full sentences. Able to move extremities spontaneously. Abdomen soft, nontender nondistended. Skin warm, dry, small tears noted on lower extremities. Unfortunately after patient was admitted, on the floor, she was found again quite hypotensive with systolic blood pressures in the 80s. Patient was evaluated again, at this time IV fluids and IV albumin were running. Patient wa s found hypothermic 34.5 Celsius rectally and Lionel hugger was initiated by nursing staff. She was also found hypoxic now, requiring 3L of supplemental O2 via nasal cannula. Patient was still alert and oriented and answering questions appropriately, she actually said that she was feeling somewhat better. After discussing with nursing staff, IV Zosyn was not started yet, and therefore requested to start IV Zosyn as priority. ICU was also consulted for evaluation, as patient may be requiring pressor support. Dex Cam MD Addendum: Repeat hemoglobin 6.7, will obtain blood consent and plan for blood transfusion. (1) Pulmonary embolism Acute cor pulmonale presence: unspecified Chronicity: unspecified Pulmonary embolism type: unspecified Qualified Code(s): I26.99 - Other pulmonary embolism without acute cor pulmonale (2) Hypotension Hypotension type: unspecified hypotension type Qualified Code(s): I95.9 - Hypotension, unspecified
[2020-04-06] MEDS ORDERED: MAGNESIUM HYDROXIDE SUSP 30 ML UDC PO PRN (20:06)
[2020-04-06] MEDS ORDERED: SODIUM CHLORIDE 0.9% 1000ML 1,000 ML IV SCH (20:06)
[2020-04-06] MEDS ORDERED: ALBUTEROL HFA 8 GM INHALER INH PRN (20:06)
[2020-04-06] MEDS ORDERED: diphenhydrAMINE Capsule 25 MG CAP PO PRN (20:06)
[2020-04-06] MEDS ORDERED: ALUMINUM/MAGNESIUM SUSP 30 ML UDC PO PRN (20:06)
[2020-04-06] MEDS ORDERED: NYSTATIN POWDER 15GM BTL EXT PRN (20:06)
[2020-04-06] MEDS ORDERED: SODIUM CHLORIDE 0.9% 250 ML IV PRN ×2 (20:06→22:27)
[2020-04-06] MEDS ORDERED: POLYETHYLENE (MIRALAX) 17 GM PACK PO PRN (20:06)
[2020-04-06] MEDS: ACETAMINOPHEN 325 MG TAB PO PRN (20:20)
[2020-04-06] MEDS ORDERED: THIAMINE HCL 100 MG TAB PO SCH ×2 (21:00)
[2020-04-06] MEDS ORDERED: PIPERACILLIN/TAZOBACTAM 3.375 GM in DEXTROSE 5% 100 ML IV ONE (21:00)
[2020-04-06] MEDS: POTASSIUM CHLORIDE / WTR 10 MEQ/100 ML PLCT IV SCH ×2 (21:04→22:23)
[2020-04-06] MEDS: ALBUMIN 25% 12.5 GM/50 ML VIAL IV SCH ×2 (21:08→21:19)
[2020-04-06 22:05] LABS: Hematocrit (blood only) 19.7 % (37-47); Hemoglobin 6.7 g/dL (12.0-16.0)
[2020-04-06 22:17] LABS: BUN Creatinine Ratio 8.9 (10-20); Calcium 7.7 mg/dl (8.5-10.1); Creatinine Clr Calc Pharmacy 35.7 ml/min; Est GFR (African American) 37.9; Est GFR (Non-African American) 32.7; Potassium 3.2 mmol/L (3.5-5.1)
[2020-04-06] MEDS: PANTOprazole 40 MG TAB PO SCH (22:35)
[2020-04-06] MEDS: VENLAFAXINE HCL 37.5 MG TAB PO SCH (22:35)
[2020-04-06] MEDS: CALCIUM 600MG + VIT D 400 IU TAB PO SCH (22:36)
[2020-04-06] MEDS: MAGNESIUM CHLORIDE 64MG DELAYED REL TAB PO SCH (22:36)
[2020-04-06] MEDS: busPIRone 5 MG TAB PO SCH (22:36)
[2020-04-06] MEDS: traZODone HCL 50 MG TAB PO SCH (22:37)
[2020-04-07] MEDS: PIPERACILLIN/TAZOBACTAM 3.375 GM in DEXTROSE 5% 100 ML IV SCH ×3 (00:44→16:58)
[2020-04-07] MEDS ORDERED: MIDODRINE HCL 10 MG TAB PO STA (01:25)
[2020-04-07 05:46] LABS: Hematocrit (blood only) 22.4 % (37-47); Hemoglobin 7.5 g/dL (12.0-16.0); Mean Corpuscular Hemoglobin 32.1 pg (25-34); Mean Corpuscular Hgb Conc 33.5 g/dL (32-36); Mean Corpuscular Volume 95.7 fL (80-100); Mean Platelet Volume 9.6 fL (7.4-10.4); Nucleated RBC # (auto) 0.02 K/uL (0-0); Nucleated RBC % (auto) 0.3 %; Platelet Count 148 K/uL (130-400); RDW Coefficient of Variation 21.4 % (11.5-14.5); RDW Standard Deviation 74.4 fL (36.4-46.3); Red Blood Count 2.34 M/uL (4.2-5.4); White Blood Count 6.67 K/uL (4.8-10.8)
[2020-04-07 05:52] LABS: BUN Creatinine Ratio 8.5 (10-20); Calcium 7.3 mg/dl (8.5-10.1); Est GFR (African American) 37.1; Magnesium 1.8 mg/dl (1.8-2.4); Potassium 3.6 mmol/L (3.5-5.1)
[2020-04-07] MEDS ORDERED: LACTATED RINGER'S 1,000 ML IV ONE (05:52)
[2020-04-07 05:56] LABS: Anisocytosis Present; Basophils # (auto) 0.05 K/uL (0-0.2); Basophils % (auto) 0.7 %; Eosinophils # (auto) 0.33 K/uL (0-0.5); Eosinophils % (auto) 4.9 %; Immature Granulocytes # (auto) 0.02 K/uL (0.00-0.02); Immature Granulocytes % (auto) 0.3 %; Lymphocytes # (auto) 1.26 K/uL (1.2-3.4); Lymphocytes % (auto) 18.9 %; Monocytes # (auto) 0.69 K/uL (0.11-0.59); Monocytes % (auto) 10.3 %; Neutrophils # (auto) 4.32 K/uL (1.4-6.5); Neutrophils % (auto) 64.9 %; Pappenheimer Bodies 1+; Target Cells 2+
[2020-04-07 05:58] LABS: INR 5.4 (0.9-1.1); Prothrombin Time 52.4 Seconds (9.0-12.0)
[2020-04-07] MEDS: MIDODRINE HCL 10 MG TAB PO SCH ×3 (05:58→16:58)
--- NOTE | 2020-04-07 07:50 | Electrocardiogram Report ---
Test Reason : Blood Pressure : / mmHG Vent. Rate : 088 BPM Atrial Rate : 088 BPM P-R Int : 172 ms QRS Dur : 070 ms QT Int : 384 ms P-R-T Axes : 054 042 034 degrees QTc Int : 464 ms Poor data quality, interpretation may be adversely affected Normal sinus rhythm Nonspecific ST abnormality Abnormal ECG When compared with ECG of 08-JUN-2019 18:09, Nonspecific T wave abnormality now evident in Inferior leads T wave inversion now evident in Anterior leads Confirmed by Femi Faustin ([id number]) on 04/07/2020 7:49:50 AM Referred By: REFERRED SELF Confirmed By:Javi Faustin
[2020-04-07] MEDS: POTASSIUM CHLORIDE CRTAB 20 MEQ TABCR PO SCH (07:58)
[2020-04-07] MEDS: VENLAFAXINE HCL 37.5 MG TAB PO SCH ×3 (07:59→20:14)
[2020-04-07] MEDS: FOLIC ACID 1 MG TAB PO SCH (07:59)
[2020-04-07] MEDS: CALCIUM 600MG + VIT D 400 IU TAB PO SCH ×2 (07:59→20:14)
[2020-04-07] MEDS: busPIRone 5 MG TAB PO SCH ×2 (07:59→20:13)
[2020-04-07] MEDS ORDERED: MIDODRINE HCL 10 MG TAB PO SCH (08:00)
[2020-04-07] MEDS: PANTOprazole 40 MG TAB PO SCH ×2 (08:00→20:15)
[2020-04-07] MEDS: MULTIVITAMIN CHEWABLE TAB PO SCH (08:00)
[2020-04-07] MEDS: THIAMINE HCL 100 MG in SYRINGE 9 ML IV SCH (08:01)
[2020-04-07] MEDS: NICOTINE 21 MG/24 HR TDSY TD SCH (08:01)
--- NOTE | 2020-04-07 08:01 | XRay Report ---
XR chest 1V portable CLINICAL HISTORY: hypoxia COMPARISON STUDY: 04/06/2020 FINDINGS: The cardiac and mediastinal contours remain stable. There are progressive right mid and upp er lung zone opacity suspicious for pneumonia. There is minimal blunting the right lateral costophren ic angle. There is no failure. IMPRESSION: Progressive right mid and upper lung zone airspace opacity suspicious for pneumonia. Clin ical and radiographic follow-up is recommended. ACT 112: Negative or not required by law. Electronically signed by: Zachery Castro M.D. 04/07/2020 8:00 AM
--- NOTE | 2020-04-07 08:38 | Gastrointestinal Consultation ---
Date of Consultation April 07, 2020 Assessment & Plan (1) Anemia: 59 year old female admitted w/ weakness, fatigue, PNA, Severe protein- calorie malnutrition GI asked to evaluate for acute on chronic anemia without evidence of GIB - she denies any prior black/bloody stools/emesis and notes she is moving her bowels 2-3 times daily No plan for inpatient endoscopic evaluation Check micronutrients including Vit K Agree w/ dietary consultation while inpatient and follow up with GI nutrition as an OP Will need OP EGD/Colonoscopy for acute on chronic anemia w/o evidence of GI bleed NO NSAIDs Work on ETOH cessation ETOH withdrawal protocol Trend HGB Monitor and document stools Transfuse PRN primary service PO PPI BID Recall over the weekend if needed. Thank you for allowing us to participate in the care of this patient. Please call with any acute changes, questions or concerns. Please see addendum below with additional recommendation from my supervising physician. (2) Supratherapeutic INR: Supervising Physician Co-Signing Physician Notes I have seen and examined the patient and discussed the management with ROYCE Hong. She is hypotenstive with a pna. She is anemic without overt gi bleeding but with a high INR 5.4. Responding somewhat to blood transfusions. History of gastric bypass. ? nutrient deficiency leading to her anemia. Agree with further plan of care as per Milagros's plan of care. History of Present Illness Reason for Consultation: anemia Requesting Physician: Brian Attending Physician: David Torres MD History of Present Illness 59 year old male w/ history of gastric bypass, severe protein calorie malnutrition, recent history of gastrotomy tube removed 02/02 secondary to recurrent fungal infection, history of PE on warfarin, chronic diastolic CHF, alcohol abuse, tobacco abuse, fibromyalgia, depression, intestinal postoperative nonabsorption, esophageal dysphagia, orthostatic hypotension, hyperlipidemia who is admitted for weakness, fatigue ?PNA. Pt was seen and evaluated for anemia, elevated INR she is on coumadin. No abd pain. No nausea/vomiting. No appetite, this is chronic. No dysphagia but reports a fullness near sternum with PO intake. Bowels moving 2/3 times daily. Denies black/bloody stools. She is gaining weight on OP chart review. EGD 2019: Esophageal plaques were found, suspicious for candidiasis. Biopsied. - NO FOOD BOLUS. No OBSTRUCTION. No food in the esophagus, stomach pouch or jejunum visualized. - John-en-Y gastrojejunostomy with gastrojejunal anastomosis characterized by healthy appearing mucosa and an intact staple line. - Normal examined jejunum. EGD 2017: No endoscopic esophageal abnormality to explain patient's dysphagia. Esophagus dilated. Dilated. - Gastric bypass with a small-sized pouch and intact staple line. Gastrojejunal anastomosis characterized by healthy appearing mucosa. - Normal examined jejunum. - No specimens collected. Colonoscopy 2017: hemorrhoids, polyp Allergies Allergy/AdvReac Type Severity Reaction Status Date / Time codeine Allergy Intermediate Diarrhea/Ra Verified 04/06/20 18:44 sh duloxetine Allergy Intermediate Crawling Verified 04/06/20 18:44 out of her skin sensation NSAIDS (Non-Steroidal Allergy Unknown None Verified 04/06/20 18:44 Anti-Inflamma Bactrim AdvReac Intermediate DELIRIUM Verified 12/28/17 19:46 clonazepam AdvReac Intermediate Syncope Verified 04/06/20 18:44 hydrocodone AdvReac Intermediate Over Verified 04/06/20 18:44 sedated hydromorphone AdvReac Intermediate Weakness Verified 04/06/20 18:44 and sweating sulfamethoxazole AdvReac Intermediate DELIRIUM Verified 04/06/20 18:44 trimethoprim AdvReac Intermediate DELIRIUM Verified 04/06/20 18:44 aspirin AdvReac Mild STOMACH Verified 04/06/20 18:44 IRRITATION cephalexin AdvReac Mild GI SYMPTOMS Verified 09/29/19 14:46 Home Medications Medication Instructions Recorded Confirmed Type albuterol sulfate [Ventolin HFA] 2 puff INHALATION QID PRN 01/04/18 04/06/20 History omeprazole 20 mg PO BID 01/04/18 04/06/20 History cyanocobalamin (vitamin B-12) 1,000 mcg IM MONTHLY 03/24/18 04/06/20 History nystatin 1 applic TOPICAL TID PRN 11/20/18 04/06/20 History ondansetron HCl 4 mg PO Q8H PRN 11/20/18 04/06/20 History thiamine HCl (vitamin B1) 100 mg PO BID 11/20/18 04/06/20 History buspirone 20 mg PO BID 04/26/19 04/06/20 History venlafaxine 75 mg PO TID 04/26/19 04/06/20 History vitamin A 10,000 unit PO QAM 05/17/19 04/06/20 History midodrine 10 mg PO TID@0800,1200,1700 #30 tab 05/25/19 04/06/20 Rx acetaminophen 650 mg PO QID PRN 06/08/19 04/06/20 History warfarin [Jantoven] 5 mg PO DAILY 09/29/19 04/06/20 History ascorbic acid (vitamin C) [Vitamin 500 mg PO DAILY 04/06/20 04/06/20 History C] calcium citrate-vitamin D3 1 tab PO BID 04/06/20 04/06/20 History [Citracal + D Maximum] diphenhydramine HCl [Benadryl] 50 mg PO HS PRN 04/06/20 04/06/20 History folic acid 1 mg PO DAILY 04/06/20 04/06/20 History furosemide [Lasix] 20 mg PO DAILY 04/06/20 04/06/20 History lidocaine 3 patch TOPICAL DAILY 04/06/20 04/06/20 History loperamide [Imodium] 2 mg PO UD PRN 04/06/20 04/06/20 History magnesium chloride 64 mg PO BID 04/06/20 04/06/20 History pedi multivit 17-iron fumarate 1 tab PO BID 04/06/20 04/06/20 History [Flintstones Plus Iron] silver sulfadiazine [Silvadene] 1 applic TOPICAL UD PRN 04/06/20 04/06/20 History trazodone 50 mg PO HS 04/06/20 04/06/20 History zinc sulfate 220 mg PO DAILY 04/06/20 04/06/20 History Patient History Medical History (Updated 04/06/20 @ 20:20 by Kiara Mansfield PA-C) Anxiety Cardiac murmur faint CHF (congestive heart failure) hx of Chronic back pain Chronic diastolic (congestive) heart failure Chronic kidney disease, stage 3 no slip maker at the moment Chronic obstructive pulmonary disease inhaler prn Congestive heart failure, unspecified (08/09/12) "echo 03/25/13-grade 1 diastolic dysfunction with mild concentric LVH" Degenerative disc disease Dyslipidemia Dysphagia Elevated liver enzymes per pt currently elevated Fatty liver Fibromyalgia GERD (gastroesophageal reflux disease) Hematoma of right lower extremity History of gastric ulcer Marijuana abuse Opiate abuse, continuous Organic sleep disorder Osteoarthritis Osteoarthritis Peripheral arterial disease Severe protein-calorie malnutrition Spinal stenosis Traumatic open wound of left lower leg Traumatic open wound of right lower leg Traumatic wound Venous stasis ulcer Surgical History Gastric bypass status for obesity H/O arthroscopic knee surgery " knee; 1998" History of arthroscopy of right knee History of cholecystectomy History of colonoscopy History of esophagogastroduodenoscopy (EGD) History of repair of hiatal hernia History of tooth extraction History of wisdom tooth extraction Hx of appendectomy Hx of gastric bypass Hx of repair of right rotator cuff S/P bronchoscopy Status post repair of paraesophageal diaphragmatic hernia "Dr. Shay [facility] [place] 01/20/17" Family History Other Family history not known due to adoption Social History Smoking Status: Current every day smoker Tobacco Type: Cigarettes packs per day: 2; Cigarettes Per Day: Pack; Second Hand Exposure: Yes (father smokes); Hx Alcohol Use: No Hx Substance Use: No Preferred Language: Thai Communication Ability: Effective Visual Impairment: No Limitations Hearing Ability: Normal Manager Billing Required: No Beliefs That Will Affect Care: None marital status: Current Living Situation: Spouse Current Living Situation Comment: lives with fiance current occupational status: unemployed Other Information That Helps Us Care for You: No Feels Safe at Home: Yes Safety Concerns: Feels Safe At This Time during the past year weight has: other Assistive Devices: Glasses Review of Systems Constitutional: + fatigue, + weakness and + weight gain; no fever and no chills Respiratory: + cough; no dyspnea Cardiovascular: no chest pain Gastrointestinal: + early satiety; no abdominal pain, no heartburn, no nausea, no coffee ground emesis, no hematemesis, no change in bowel habits, no blood in stools and no melena Physical Exam Constitutional: + ill appearing (chronically ill appearing) Respiratory: normal respiratory effort Gastrointestinal (Abdomen): Percussion/Palpation: abdomen soft; abdomen nontender, no guarding and abdomen not rigid Skin: no rashes, warm and dry Results & Data ([facility]) Vital Signs (Past 12 Hours) Vital Signs Temp Pulse Pulse Resp BP BP BP 04/07/20 07:47 36.8 C 94 H 17 71/33 L 04/07/20 05:14 73/47 L 04/07/20 03:47 95 H 16 73/45 L 04/07/20 03:36 72/37 L 04/07/20 03:33 36.7 C 90 18 72/37 L 04/07/20 02:33 36.6 C 85 16 79/43 L 04/07/20 01:33 36.8 C 91 H 16 73/34 L 04/07/20 01:03 36.7 C 88 16 78/47 L 04/07/20 00:48 36.5 C 85 16 71/46 L 04/07/20 00:32 36.4 C L 101 H 18 127/85 04/06/20 22:22 04/06/20 22:20 107/67 04/06/20 21:33 34.5 C L 78 85/48 L Pulse Ox 04/07/20 07:47 94 04/07/20 05:14 04/07/20 03:47 100 04/07/20 03:36 04/07/20 03:33 100 04/07/20 02:33 100 04/07/20 01:33 100 04/07/20 01:03 100 04/07/20 00:48 98 04/07/20 00:32 100 04/06/20 22:22 96 04/06/20 22:20 04/06/20 21:33
[2020-04-07] MEDS ORDERED: SODIUM CHLORIDE 0.9% 250 ML IV PRN (08:59)
[2020-04-07] MEDS ORDERED: NON-FORMULARY MEDICATION (Vitamin A 10,000 unit Capsule) PO SCH (09:00)
[2020-04-07] MEDS ORDERED: ZINC SULFATE 220 MG CAPSULE PO SCH (09:00)
[2020-04-07] MEDS ORDERED: ASCORBIC ACID 500 MG TAB PO SCH (09:00)
[2020-04-07] MEDS: MAGNESIUM CHLORIDE 64MG DELAYED REL TAB PO SCH (11:23)
[2020-04-07] MEDS: MAGNESIUM OXIDE 400 MG TAB PO SCH (12:36)
[2020-04-07 15:53] LABS: Hematocrit (blood only) 29.7 % (37-47)
[2020-04-07 16:41] LABS: Appearance Urine Clear (Clear); Bacteria Urine Automated Negative (Negative); Bilirubin Urine Negative (Negative); Blood Urine Negative (Negative); Color Urine Dark Yellow; Epithelial Cell Urine Auto >30 /lpf (0-5); Glucose Urine UA Negative (Negative); Ketones Urine Negative (Negative); Leukocyte Esterase Urine Trace (Negative); Nitrite Urine Negative (Negative); Protein Urine Negative (Negative); RBC Urine Automated 0-4 /hpf (0-4); Specific Gravity Urine 1.012 (1.000-1.030); Urobilinogen Urine Negative (Negative); pH Urine 5.5 (4.5-7.5)
[2020-04-07] MEDS ORDERED: LORazepam 1 MG TAB PO PRN (17:05)
--- NOTE | 2020-04-07 17:46 | Hospitalist Progress Note ---
Date of Service April 07, 2020 Assessment & Plan (1) Pneumonia involving right lung: Patient is a 59 yr female with H/O Gastric bypass, severe protein calorie malnutrition, recent history of gastrotomy tube removed 02/02 secondary to recurrent fungal infection, history of PE on warfarin, chronic diastolic CHF, alcohol abuse, tobacco abuse, fibromyalgia, depression, intestinal postoperative nonabsorption, esophageal dysphagia, orthostatic hypotension, hyperlipidemia who presents to ED secondary to weakness for several weeks. Community-acquired pneumonia Hypoxia CXR:Right mid to upper lung zone airspace opacities suspicious for pneumonia. Clinical and radiographic follow-up is recommended. MRSA:Negative COVID Screen: Negative Blood Culture: Pending Normal Lactate levels Procalcitonin:1.03 Received IV fluids Continue Zosyn Day #2 Aspiration Precautions Home Inhalers PRN Currently saturating well on room air (2) Acute renal failure superimposed on stage 3a chronic kidney disease: MALAIKA on CKD III Likely prerenal Baseline Cr:1.7 today Bladder Scan PRN Lasix held Received IV fluids Avoid nephrotoxic agents as Monitor renal function Consider nephrology evaluation if needed (3) Hypokalemia: Replace electrolytes as needed Monitor (4) Hypomagnesemia: Replete electrolytes as needed Monitor . (5) Anemia: Symptomatic Anemia Likely Multifactorial--malnutritional, S/P gastric Bypass, Alcohol use Chronic Anemia On thiamine, folic acid daily along with B12 monthly Denies Bleeding Issues FOBT: Negative S/P 2 units PRBCs Monitor CBC (6) Hypotension: Chronic Hypotension H/O Orthostatic hypotension, likely worsened due to anemia, infection Continue midodrine Denies Dizziness Monitor BP (7) Supratherapeutic INR: Monitor INR 7.6>5.4 Received vitamin K Hold Coumadin for now No bleeding issues Monitor INR (8) Elevated TSH: TSH 9, free T4 near normal Prior outpatient thyroid function test unremarkable Plan repeat thyroid function test as outpatient (9) Alcohol abuse: Drinks 5 ounces of hard liquor daily per fianc Continue thiamine, folic acid Ativan PRN Monitor for withdrawal (10) Tobacco use disorder: 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 Nicotine patch (11) Chronic diastolic (congestive) heart failure: Volume overload Vascularly depleted Received albumin Monitor volume status closely Lasix held due to MALAIKA Monitor daily weights, strict I's and O's (12) Dyslipidemia: Continue statin (13) Severe protein-calorie malnutrition: Previously was on tube feeds--removed 02/02 Very Poor Oral Intake Albumin 1.1 Consulted dietitian Encourage increased PO Intake (14) Pulmonary embolism: H/O PE with cor pulmonale Supratherapeutic INR Hold Coumadin for now Monitor INR DVT Px: Supratherapeutic INR CODE STATUS Full code Disposition PT/OT prior to discharge Family Contact: Patient maribeth Watson [phone] Admission and Anticipated Discharge Date Admission Date: April 06, 2020 Subjective Patient is seen and examined at bedside Poor historian Reports having intermittent dry cough Poor appetite Chronic dysphagia Denies any bleeding issues Denies chest pain, shortness of breath, dizziness, nausea, abdominal pain No other complaints Review of Systems Review of Systems: All systems reviewed & are unremarkable except as noted in HPI & below Physical Exam Physical Exam: Physical Exam: Vitals signs as noted above General Appearance:Chronic Ill appearing, Pale, no apparent distress Head: normocephalic, Atraumatic Eyes: normal inspection, EOMI +Pallor Neck: supple, Trachea midline Respiratory/Chest: Normal breath sounds, CTA, No accessory muscle use Cardiovascular: S1, S2, No murmur Abdomen/GI:Soft, Non tender, Bowel sounds present Extremities/Musculoskelatal:normal inspection, 2+ B/L LE edema Neurologic/Psych:AAOX3, grossly no focal neurological deficits Skin: normal color, warm, +pretibial skin tear, multiple excoriations Results & Data Results & Data ([facility]) Vital Signs (Past 12 Hours) Vital Signs Temp Pulse Pulse Resp BP BP Pulse Ox 04/07/20 15:42 36.7 C 98 H 17 83/56 L 97 04/07/20 13:40 36.7 C 81 20 83/49 L 99 04/07/20 13:28 36.7 C 85 20 89/55 L 100 04/07/20 12:28 97 H 20 89/60 L 95 04/07/20 11:28 36.7 C 80 20 76/53 L 95 04/07/20 11:07 36.7 C 88 18 91/54 L 97 04/07/20 10:58 36.7 C 88 18 76/41 L 99 04/07/20 10:43 36.8 C 86 18 78/44 L 90 04/07/20 10:23 36.8 C 89 18 85/53 L 98 04/07/20 08:00 93 H 04/07/20 07:47 36.8 C 94 H 17 71/33 L 94 04/07/20 05:14 73/47 L Laboratory Results Short CBC 04/06/20 04/07/20 04/07/20 Range/Units 21:48 05:18 15:43 WBC 6.67 (4.8-10.8) K/uL Hgb 6.7 L* 7.5 L 10.0 L (12.0-16.0) g/dL Hct 19.7 L* 22.4 L 29.7 L (37-47) % Plt Count 148 (130-400) K/uL BMP 04/06/20 04/06/20 04/07/20 16:55 21:48 05:18 Sodium 138 139 140 Potassium 2.9 L 3.2 L 3.6 Chloride 104 107 109 H Carbon Dioxide 27 27 25 BUN 17 15 15 Creatinine 1.93 H 1.69 H 1.72 H Glucose 105 H 110 H 104 H Calcium 8.3 L 7.7 L 7.3 L Cardiac Enzymes 04/06/20 Range/Units 16:55 Troponin I < 0.015 (0-0.045) ng/ml Liver Function 04/06/20 Range/Units 16:55 Total Bilirubin 1.2 H (0.2-1) mg/dl AST 36 (15-37) U/L ALT 35 (12-78) U/L Alkaline Phosphatase 249 H (45-117) U/L Albumin 1.1 L (3.4-5.0) gm/dl Urine 04/07/20 Range/Units 16:01 Urine Color Dark Yellow Urine Appearance Clear (Clear) Urine pH 5.5 (4.5-7.5) Ur Specific Archbold 1.012 (1.000-1.030) Urine Protein Negative (Negative) Urine Glucose (UA) Negative (Negative) (1) Hypotension Hypotension type: unspecified hypotension type Qualified Code(s): I95.9 - Hypotension, unspecified (2) Pulmonary embolism Acute cor pulmonale presence: unspecified Chronicity: unspecified Pulmonary embolism type: unspecified Qualified Code(s): I26.99 - Other pulmonary embolism without acute cor pulmonale
[2020-04-07] MEDS: traZODone HCL 50 MG TAB PO SCH (20:13)
[2020-04-07] MEDS: NYSTATIN CR 15 GM TUBE EXT SCH (20:15)
[2020-04-08] MEDS: PIPERACILLIN/TAZOBACTAM 3.375 GM in DEXTROSE 5% 100 ML IV SCH ×3 (01:44→20:49)
[2020-04-08 04:47] LABS: Hematocrit (blood only) 28.6 % (37-47); Hemoglobin 9.6 g/dL (12.0-16.0); Mean Corpuscular Hemoglobin 31.3 pg (25-34); Mean Corpuscular Hgb Conc 33.6 g/dL (32-36); Mean Corpuscular Volume 93.2 fL (80-100); Mean Platelet Volume 9.2 fL (7.4-10.4); Platelet Count 113 K/uL (130-400); RDW Coefficient of Variation 22.6 % (11.5-14.5); RDW Standard Deviation 72.7 fL (36.4-46.3); Red Blood Count 3.07 M/uL (4.2-5.4); White Blood Count 10.01 K/uL (4.8-10.8)
[2020-04-08] MEDS: MIDODRINE HCL 10 MG TAB PO SCH ×3 (08:00→17:00)
[2020-04-08] MEDS: VENLAFAXINE HCL 37.5 MG TAB PO SCH ×3 (09:00→22:02)
[2020-04-08] MEDS: THIAMINE HCL 100 MG in SYRINGE 9 ML IV SCH (09:00)
[2020-04-08] MEDS: FOLIC ACID 1 MG TAB PO SCH (09:00)
[2020-04-08] MEDS: PANTOprazole 40 MG TAB PO SCH ×2 (09:00→22:02)
[2020-04-08] MEDS: busPIRone 5 MG TAB PO SCH ×2 (09:00→22:02)
[2020-04-08] MEDS: CALCIUM 600MG + VIT D 400 IU TAB PO SCH ×2 (09:00→22:02)
[2020-04-08] MEDS: NYSTATIN CR 15 GM TUBE EXT SCH ×2 (09:00→22:02)
[2020-04-08] MEDS: MULTIVITAMIN CHEWABLE TAB PO SCH (09:00)
[2020-04-08] MEDS: NICOTINE 21 MG/24 HR TDSY TD SCH (09:00)
[2020-04-08] MEDS: MAGNESIUM OXIDE 400 MG TAB PO SCH (09:00)
[2020-04-08] MEDS: POTASSIUM CHLORIDE CRTAB 20 MEQ TABCR PO SCH (09:00)
[2020-04-08] MEDS ORDERED: NSS + 20MEQ KCL 20 MEQ/1,000 ML BAG IV SCH (13:30)
[2020-04-08] MEDS ORDERED: ALBUMIN HUMAN 25% 12.5 GM/50 ML VIAL IV ONE (15:01)
[2020-04-08] MEDS: ONDANSETRON INJ 2 MG/ML 2 ML VIAL IV PRN ×2 (15:15→21:25)
[2020-04-08 17:15] LABS: BUN Creatinine Ratio 8.2 (10-20); Calcium 7.3 mg/dl (8.5-10.1); Est GFR (African American) 40.5; Est GFR (Non-African American) 34.9; Potassium 3.7 mmol/L (3.5-5.1)
[2020-04-08 20:36] LABS: INR 4.4 (0.9-1.1); Prothrombin Time 42.9 Seconds (9.0-12.0)
--- NOTE | 2020-04-08 20:38 | Hospitalist Progress Note ---
Date of Service April 08, 2020 Assessment & Plan (1) Pneumonia involving right lung: Patient is a 59 yr female with H/O Gastric bypass, severe protein calorie malnutrition, recent history of gastrotomy tube removed 02/02 secondary to recurrent fungal infection, history of PE on warfarin, chronic diastolic CHF, alcohol abuse, tobacco abuse, fibromyalgia, depression, intestinal postoperative nonabsorption, esophageal dysphagia, orthostatic hypotension, hyperlipidemia who presents to ED secondary to weakness for several weeks. Community-acquired pneumonia Hypoxia CXR:Right mid to upper lung zone airspace opacities suspicious for pneumonia. Clinical and radiographic follow-up is recommended. MRSA:Negative COVID Screen: Negative Blood Culture: No growth to date Normal Lactate levels Procalcitonin:1.03>1.97 Received IV fluids Continue Zosyn Day #3 Added doxycycline Aspiration Precautions Home Inhalers PRN Saturating low 90s on 2 L of supplemental oxygen Recheck procalcitonin in a.m. Recheck chest x-ray tomorrow (2) Acute renal failure superimposed on stage 3a chronic kidney disease: MALAIKA on CKD III Likely prerenal Baseline Cr:1.7 > 1.6 Bladder Scan PRN Lasix held Continue IV fluids as needed Avoid nephrotoxic agents as Monitor renal function Consider nephrology evaluation if needed (3) Hypokalemia: Replace electrolytes as needed Monitor (4) Hypomagnesemia: Replete electrolytes as needed Monitor . (5) Anemia: Symptomatic Anemia Likely Multifactorial--malnutritional, S/P gastric Bypass, Alcohol use Chronic Anemia On thiamine, folic acid daily along with B12 monthly Denies Bleeding Issues FOBT: Negative S/P 2 units PRBCs Monitor CBC (6) Hypotension: Chronic Hypotension H/O Orthostatic hypotension, likely worsened due to anemia, infection Continue midodrine Denies Dizziness Monitor BP (7) Supratherapeutic INR: Monitor INR 7.6>5.4 Received vitamin K Hold Coumadin for now No bleeding issues Monitor INR--pending today (8) Elevated TSH: TSH 9, free T4 near normal Prior outpatient thyroid function test unremarkable Plan repeat thyroid function test as outpatient (9) Alcohol abuse: Drinks 5 ounces of hard liquor daily per fianc Continue thiamine, folic acid Ativan PRN Monitor for withdrawal (10) Tobacco use disorder: 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 Nicotine 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 (11) Chronic diastolic (congestive) heart failure: Volume overload Vascularly depleted Received albumin Monitor volume status closely Lasix held due to MALAIKA Monitor daily weights, strict I's and O's (12) Dyslipidemia: Continue statin (13) Severe protein-calorie malnutrition: Previously was on tube feeds--removed 02/02 Very Poor Oral Intake Albumin 1.1 Consulted dietitian Encourage increased PO Intake (14) Pulmonary embolism: H/O PE with cor pulmonale Supratherapeutic INR Hold Coumadin for now Monitor INR DVT Px: Supratherapeutic INR CODE STATUS Full code Disposition PT/OT prior to discharge Family Contact: Patient maribeth Watson [phone] Admission and Anticipated Discharge Date Admission Date: April 06, 2020 Subjective Patient is seen and examined at bedside Poor historian States having nausea this morning but no vomiting Less cough today States feeling very tired Denies any bleeding issues On 2 L of oxygen Chronic dysphagia Denies chest pain, shortness of breath, dizziness, nausea, abdominal pain Not very motivated Review of Systems Review of Systems: All systems reviewed & are unremarkable except as noted in HPI & below Physical Exam Physical Exam: Physical Exam: Vitals signs as noted above General Appearance:Chronic Ill appearing, Pale, no apparent distress Head: normocephalic, Atraumatic Eyes: normal inspection, EOMI +Pallor Neck: supple, Trachea midline Respiratory/Chest: Normal breath sounds, CTA, No accessory muscle use Cardiovascular: S1, S2, No murmur Abdomen/GI:Soft, Non tender, Bowel sounds present Extremities/Musculoskelatal:normal inspection, 2+ B/L LE edema Neurologic/Psych:AAOX3, grossly no focal neurological deficits Skin: normal color, warm, +pretibial skin tear, multiple excoriations Results & Data Results & Data ([facility]) Vital Signs (Past 12 Hours) Vital Signs Temp Pulse Pulse Pulse Resp BP BP 04/08/20 20:00 36.7 C 99 H 20 70/35 L 04/08/20 16:00 37 C 100 H 103 H 20 108/77 04/08/20 15:45 37.0 C 103 H 20 108/77 04/08/20 11:28 36.7 C 105 H 19 81/51 L Pulse Ox 04/08/20 20:00 94 04/08/20 16:00 94 04/08/20 15:45 94 04/08/20 11:28 96 Laboratory Results Short CBC 04/08/20 Range/Units 04:37 WBC 10.01 (4.8-10.8) K/uL Hgb 9.6 L (12.0-16.0) g/dL Hct 28.6 L (37-47) % Plt Count 113 L (130-400) K/uL [facility] 04/08/20 04:37 Sodium 141 Potassium 3.7 Chloride 110 H Carbon Dioxide 28 BUN 13 Creatinine 1.60 H Glucose 84 Calcium 7.3 L (1) Hypotension Hypotension type: unspecified hypotension type Qualified Code(s): I95.9 - Hypotension, unspecified (2) Pulmonary embolism Acute cor pulmonale presence: unspecified Chronicity: unspecified Pulmonary embolism type: unspecified Qualified Code(s): I26.99 - Other pulmonary embolism without acute cor pulmonale
[2020-04-08] MEDS: DOXYCYCLINE HYCLATE 100 MG CAP PO SCH ×2 (20:57→22:03)
[2020-04-08] MEDS ORDERED: DEXTROSE 50% 50 ML SYRINGE IV ONE (20:58)
[2020-04-08] MEDS: D5W AND LACTATED RINGERS 1,000 ML IV SCH (21:26)
[2020-04-08 21:35] LABS: Base Excess ABG -1.5 mEq/L (-9-1.8); HCO3 ABG 22 mmol/L (19-24); Oxygen Saturation ABG 96.1 % (90-95); PCO2 ABG 29 mmHg (35-46); PO2 ABG 77 mmHg (80-95); pH ABG 7.49 (7.35-7.45)
[2020-04-08 21:36] LABS: Allen Test Pos (Pos)
--- NOTE | 2020-04-08 21:57 | Communication Note ---
Date of Service: April 08, 2020 Patient slow to answer questions as per RN. Not participating with care as per RN. Disoriented on my exam. Serum ammonia 80s. serum crea 1.72 from 1.6 AP Hepatic encephalopathy Persistent kidney dysfunction since confinement rule out obstructive uropathy Lactulose regimen Renal ultrasound Will relay to AM provider.
[2020-04-08] MEDS: traZODone HCL 50 MG TAB PO SCH (22:02)
[2020-04-08 22:07] LABS: BUN Creatinine Ratio 8.1 (10-20); Calcium 7.1 mg/dl (8.5-10.1); Creatinine Clr Calc Pharmacy 35.3 ml/min; Est GFR (African American) 37.1; Magnesium 1.6 mg/dl (1.8-2.4); Potassium 3.7 mmol/L (3.5-5.1)
[2020-04-08] MEDS ORDERED: MAGNESIUM SULFATE / D5W 1 GM/100 ML BAG IV ONE (23:21)
[2020-04-08 23:36] LABS: Albumin Level 1.5 gm/dl (3.4-5.0); Bilirubin,Total 2.7 mg/dl (0.2-1); Total Protein 4.1 gm/dl (6.4-8.2)
[2020-04-08 23:42] LABS: Bilirubin Direct 1.9 mg/dl (0-0.2)
[2020-04-09] MEDS: PIPERACILLIN/TAZOBACTAM 3.375 GM in DEXTROSE 5% 100 ML IV SCH ×3 (01:45→17:07)
[2020-04-09 07:44] LABS: Hematocrit (blood only) 23.5 % (37-47); Hemoglobin 8.1 g/dL (12.0-16.0); Mean Corpuscular Hgb Conc 34.5 g/dL (32-36); Mean Corpuscular Volume 92.9 fL (80-100); Mean Platelet Volume 9.6 fL (7.4-10.4); Platelet Count 105 K/uL (130-400); RDW Coefficient of Variation 22.4 % (11.5-14.5); RDW Standard Deviation 72.3 fL (36.4-46.3); Red Blood Count 2.53 M/uL (4.2-5.4); White Blood Count 8.14 K/uL (4.8-10.8)
[2020-04-09 07:50] LABS: INR 3.2 (0.9-1.1); Prothrombin Time 32.1 Seconds (9.0-12.0)
[2020-04-09] MEDS: D5W AND LACTATED RINGERS 1,000 ML IV SCH (08:04)
[2020-04-09 08:18] LABS: Albumin Level 1.3 gm/dl (3.4-5.0); Blood Urea Nitrogen 13 mg/dl (7-18); Calcium 7.5 mg/dl (8.5-10.1); Carbon Dioxide 23 mmol/L (21-32); Chloride 113 mmol/L (98-107); Creatinine Clr Calc Pharmacy 33.4 ml/min; Est GFR (African American) 34.4; Est GFR (Non-African American) 29.7; Glucose 115 mg/dl (70-99); Potassium 3.4 mmol/L (3.5-5.1); Sodium 143 mmol/L (136-145)
[2020-04-09 08:25] LABS: Prealbumin < 3.0 mg/dl (20-40)
--- NOTE | 2020-04-09 08:46 | XRay Report ---
XR chest 1V portable CLINICAL HISTORY: Hypoxia COMPARISON STUDY: Chest radiograph April 06, 2020. FINDINGS: Lung volumes are at the lower limits of normal. Patient is mildly rotated. No pneumothorax or pleural effusion is noted. Multifocal right lung consolidation has progressed since prior examinat ion. Left perihilar and left basilar airspace opacity has developed. There is no evidence for pulmona ry edema. Cardiac size is normal. Mediastinal contours are unremarkable. IMPRESSION: Significant progression of bilateral airspace opacities consistent with multifocal pneumo napoleon. ACT 112: Negative or not required by law. Electronically signed by: Richard Abrams M.D. 04/09/2020 8:45 AM
[2020-04-09] MEDS: POTASSIUM CHLORIDE 40 MEQ in D5W AND 1/2NSS 1,000 ML/1,000 ML BAG IV SCH ×2 (09:08→19:27)
[2020-04-09] MEDS: THIAMINE HCL 100 MG in SYRINGE 9 ML IV SCH (09:15)
[2020-04-09] MEDS: NICOTINE 21 MG/24 HR TDSY TD SCH (09:16)
[2020-04-09] MEDS: NYSTATIN CR 15 GM TUBE EXT SCH ×2 (09:16→21:50)
[2020-04-09] MEDS: ONDANSETRON INJ 2 MG/ML 2 ML VIAL IV PRN (09:46)
[2020-04-09 09:51] LABS: Allen Test Pos (Pos); Base Excess ABG -1.9 mEq/L (-9-1.8); HCO3 ABG 22 mmol/L (19-24); Oxygen Saturation ABG 91.4 % (90-95); PCO2 ABG 30 mmHg (35-46); PO2 ABG 65 mmHg (80-95); pH ABG 7.47 (7.35-7.45)
[2020-04-09] MEDS ORDERED: LACTULOSE 200 GM, WATER, STERILE IRRIG 700 ML, BARCODE IDENTIFIER 1 EA PR ONE (10:00)
[2020-04-09] MEDS: DOXYCYCLINE HYCLATE 100 MG in DEXTROSE 5% 100 ML IV SCH ×2 (10:22→21:54)
[2020-04-09] MEDS: ACETAMINOPHEN 325 MG TAB PO PRN (10:42)
--- NOTE | 2020-04-09 10:51 | Nephrology Consultation ---
Date of Consultation April 09, 2020 Assessment & Plan (1) Acute renal failure: worsening renal function today > may well be prerenal. while HRS is on the differential so are several other etiologies including prerenal, ATN. not clear to me and defer to primary srevice/GI on this how severe her liver disease is. no indication for dialysis. would not start empiric tx for HRS. -daily bmp -cont albumin IV -would take care w/ IV fluids until TTE done -needs renal u/s -daily bmp and phos and mag and calcium Present on Admission?: Yes (2) Severe protein-calorie malnutrition: suspect this is driving renal failure which is progressive from March -work w/ nutrition/GI to get comprehensive plan on this -consider NGT/TF Present on Admission?: Yes (3) Hypotension: on chronic midodrine max dose since early 2019 w/ markedly worse HF May 2019 in setting of PE >recheck TTE -cont midodrine for now Present on Admission?: Yes History of Present Illness Reason for Consultation: MALAIKA, ? HRS Requesting Physician: Dr Torres Attending Physician: David Torres MD History of Present Illness 59 y/o F whom I'm asked to see for MALAIKA possibly from hepatorenal syndrome was admitted here on 04/06 for R lung PNA and significant deconditioning/malnutrition after presenting for evaluation of several weeks of weakness. PMH includes malabsorptive gastric bypass, severe protein calorie malnutrition, history of PE on warfarin, orthostatic hypotension on chronic midodrine and with occasional falls, chronic diastolic CHF, alcohol abuse, tobacco abuse, fibromyalgia, depression, esophageal dysphagia, hyperlipidemia. Of note, pt had 2 admissions to [facility] [place] in May,July 2019 for severe malnutrition and had PEG placed 07/2019 for this. Was using TF as recently as 01/2020; PEG removed early february due to no longer needing TF exclusively (ie, could take some/most po) and d/t this pt no longer had insurance coverage for PEG per gen surg note and d/t pain around tube. 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 On presentation reported that since removal of PEG pt has been steadily going downhill w/ worsening weakness and minimal p.o. intake. Pt had been taking about 4 oz daily protein drink but little else [employer]. She had been unable prior to admission to get to bathroom with one person assist and on 3 occasions in week [employer] went fully limp for several seconds w/o diminished consciousness. Presenting albumin 1.1. Nutrition evaluated pt 04/07. Her baseline creatinine is 0.7-0.8 as of spring 2019 in [facility]; however worsening OP creatinien in March to 1.3 on two checks in [facility]. Presenting creatinine was 1.9, essentially unchanged ever since. She also had significant hypokalemia on presentation w/ K 2.9 and mild hypomagesemia. Seen by occupational health manager last evening d/t AMS > noted to have worsening renal function and hepatic encephalopathy: lactulose started, renal u/s ordered. She has had some ativan earlier today; she answers about 3-4 simple ROS questions but for the most part does not speak in full sentences or give reliable hx today. she cannot tell me, for ex, if she fell [employer]. NOTE I attempted multiple times to update PMH/PSH but (?d/t recent update in EHR) this is not workable: some cardiac hx, hx of PEG, is inaccurate/out of date in record as is EtOH usehx Allergies Allergy/AdvReac Type Severity Reaction Status Date / Time codeine Allergy Intermediate Diarrhea/Ra Verified 04/06/20 18:44 sh duloxetine Allergy Intermediate Crawling Verified 04/06/20 18:44 out of her skin sensation NSAIDS (Non-Steroidal Allergy Unknown None Verified 04/06/20 18:44 Anti-Inflamma Bactrim AdvReac Intermediate DELIRIUM Verified 12/28/17 19:46 clonazepam AdvReac Intermediate Syncope Verified 04/06/20 18:44 hydrocodone AdvReac Intermediate Over Verified 04/06/20 18:44 sedated hydromorphone AdvReac Intermediate Weakness Verified 04/06/20 18:44 and sweating sulfamethoxazole AdvReac Intermediate DELIRIUM Verified 04/06/20 18:44 trimethoprim AdvReac Intermediate DELIRIUM Verified 04/06/20 18:44 aspirin AdvReac Mild STOMACH Verified 04/06/20 18:44 IRRITATION cephalexin AdvReac Mild GI SYMPTOMS Verified 09/29/19 14:46 Home Medications Medication Instructions Recorded Confirmed Type albuterol sulfate [Ventolin HFA] 2 puff INHALATION QID PRN 01/04/18 04/06/20 History omeprazole 20 mg PO BID 01/04/18 04/06/20 History cyanocobalamin (vitamin B-12) 1,000 mcg IM MONTHLY 03/24/18 04/06/20 History nystatin 1 applic TOPICAL TID PRN 11/20/18 04/06/20 History ondansetron HCl 4 mg PO Q8H PRN 11/20/18 04/06/20 History thiamine HCl (vitamin B1) 100 mg PO BID 11/20/18 04/06/20 History buspirone 20 mg PO BID 04/26/19 04/06/20 History venlafaxine 75 mg PO TID 04/26/19 04/06/20 History vitamin A 10,000 unit PO QAM 05/17/19 04/06/20 History midodrine 10 mg PO TID@0800,1200,1700 #30 tab 05/25/19 04/06/20 Rx acetaminophen 650 mg PO QID PRN 06/08/19 04/06/20 History warfarin [Jantoven] 5 mg PO DAILY 09/29/19 04/06/20 History ascorbic acid (vitamin C) [Vitamin 500 mg PO DAILY 04/06/20 04/06/20 History C] calcium citrate-vitamin D3 1 tab PO BID 04/06/20 04/06/20 History [Citracal + D Maximum] diphenhydramine HCl [Benadryl] 50 mg PO HS PRN 04/06/20 04/06/20 History folic acid 1 mg PO DAILY 04/06/20 04/06/20 History furosemide [Lasix] 20 mg PO DAILY 04/06/20 04/06/20 History lidocaine 3 patch TOPICAL DAILY 04/06/20 04/06/20 History loperamide [Imodium] 2 mg PO UD PRN 04/06/20 04/06/20 History magnesium chloride 64 mg PO BID 04/06/20 04/06/20 History pedi multivit 17-iron fumarate 1 tab PO BID 04/06/20 04/06/20 History [Flintstones Plus Iron] silver sulfadiazine [Silvadene] 1 applic TOPICAL UD PRN 04/06/20 04/06/20 History trazodone 50 mg PO HS 04/06/20 04/06/20 History zinc sulfate 220 mg PO DAILY 04/06/20 04/06/20 History mirtazapine 45 mg PO DAILY 04/09/20 04/09/20 History Patient History Medical History (Updated 04/09/20 @ 17:46 by Ele Huizar MD, PhD) Anxiety Cardiac murmur faint CHF (congestive heart failure) severe R HF 05/2019 (in setting of PE) Chronic back pain Chronic obstructive pulmonary disease inhaler prn Congestive heart failure, unspecified (08/09/12) "echo 03/25/13-grade 1 diastolic dysfunction with mild concentric LVH" Degenerative disc disease Dyslipidemia Dysphagia Elevated liver enzymes per pt currently elevated Fatty liver Fibromyalgia GERD (gastroesophageal reflux disease) Hematoma of right lower extremity History of gastric ulcer Hypotension on chronic midodrine Marijuana abuse Opiate abuse, continuous Organic sleep disorder Osteoarthritis Osteoarthritis Peripheral arterial disease Severe protein-calorie malnutrition Spinal stenosis Traumatic open wound of left lower leg Traumatic open wound of right lower leg Traumatic wound Venous stasis ulcer Surgical History Gastric bypass status for obesity H/O arthroscopic knee surgery "R knee; 1998" History of arthroscopy of right knee History of cholecystectomy History of colonoscopy History of esophagogastroduodenoscopy (EGD) History of repair of hiatal hernia History of tooth extraction History of wisdom tooth extraction Hx of appendectomy Hx of gastric bypass Hx of repair of right rotator cuff S/P bronchoscopy Status post repair of paraesophageal diaphragmatic hernia "Dr. 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 Beliefs That Will Affect Care: None marital status: Current Living Situation: Spouse Current Living Situation Comment: lives with fiance current occupational status: unemployed Other Information That Helps Us Care for You: No Feels Safe at Home: Yes Safety Concerns: Feels Safe At This Time during the past year weight has: other Assistive Devices: Oxygen - Continuous Review of Systems Review of Systems: Unobtainable due to cognitive status and Unobtainable due to reduced consciousness Respiratory: no dyspnea Gastrointestinal: no abdominal pain Musculoskeletal: no joint pain and no myalgia Neurologic: + generalized weakness Physical Exam Constitutional: well developed, + ill appearing, + altered mental status and + malnourished; no acute distress Eyes: EOM intact bilaterally ENMT: Ears: no external ear abnormality Nose: no external nose abnormality Mouth: + dry oral mucous membranes Neck: no nuchal rigidity Respiratory: normal respiratory effort Auscultation: + diminished lung sounds Cardiovascular: Rate/Rhythm: regular rate and regular rhythm Extremities: + edema (trace BLE) Gastrointestinal (Abdomen): Inspection/Auscultation: normal bowel sounds Percussion/Palpation: abdomen soft; abdomen nontender Musculoskeletal: Extremities: + limited ROM of extremities and + abnormal strength Skin: no rashes, warm and dry chronic healed skin wounds and some current ones BL ant shins; extensive R elbow bruising; abrasions dorsi of fingers Neurologic: moves all extremities and + confused Speech / Cognition: + abnormal cognition generalized weakness Psychiatric: Orientation: oriented to person and oriented to place Affect: + flat affect Genitourinary: ybarra w/ dark yellow urine Results & Data ([facility]) Vital Signs (Past 12 Hours) Vital Signs Temp Pulse Pulse Resp BP Pulse Ox 04/09/20 10:27 37.2 C 102 H 22 88/51 L 91 04/09/20 08:02 37.0 C 104 H 22 75/39 L 90 04/09/20 03:54 36.9 C 95 H 24 82/49 L 91 04/08/20 23:53 36.8 C 99 H 99 H 20 85/53 L 95 Laboratory Results 04/09/20 07:23 04/09/20 07:23 12/ UA > 1012 dark yellow urine; >30 epi's; 5-10 renal epi's; trace LE; all al indices bland Diagnostic Findings cxr today IMPRESSION: Significant progression of bilateral airspace opacities consistent with multifocal pneumonia. (1) Acute renal failure Acute renal failure type: unspecified Qualified Code(s): N17.9 - Acute kidney failure, unspecified (2) Hypotension Hypotension type: unspecified hypotension type Qualified Code(s): I95.9 - Hypotension, unspecified
[2020-04-09] MEDS: CALCIUM 600MG + VIT D 400 IU TAB PO SCH ×2 (11:17→21:47)
[2020-04-09] MEDS: busPIRone 5 MG TAB PO SCH ×2 (11:17→21:48)
[2020-04-09] MEDS: MIDODRINE HCL 10 MG TAB PO SCH ×3 (11:17→17:03)
[2020-04-09] MEDS: LACTULOSE SYRUP 30 GM/45 ML UDP PO SCH ×3 (11:17→21:47)
[2020-04-09] MEDS: VENLAFAXINE HCL 37.5 MG TAB PO SCH ×3 (11:18→21:49)
[2020-04-09] MEDS: FOLIC ACID 1 MG TAB PO SCH (11:18)
[2020-04-09] MEDS: MULTIVITAMIN CHEWABLE TAB PO SCH (11:19)
[2020-04-09] MEDS: MAGNESIUM OXIDE 400 MG TAB PO SCH (11:19)
[2020-04-09] MEDS: POTASSIUM CHLORIDE CRTAB 20 MEQ TABCR PO SCH (11:19)
[2020-04-09] MEDS: PANTOprazole 40 MG TAB PO SCH ×2 (11:19→21:49)
--- NOTE | 2020-04-09 11:42 | Electrocardiogram Report ---
Test Reason : Blood Pressure : / mmHG Vent. Rate : 103 BPM Atrial Rate : 103 BPM P-R Int : 146 ms QRS Dur : 070 ms QT Int : 328 ms P-R-T Axes : 032 045 153 degrees QTc Int : 429 ms Poor data quality, interpretation may be adversely affected Sinus tachycardia with Premature atrial complexes Nonspecific ST and T wave abnormality Abnormal ECG When compared with ECG of 06-APR-2020 16:13, Premature atrial complexes are now Present Confirmed by Senthil Beltran ([id number]) on 04/09/2020 11:42:22 AM Referred By: REFERRED SELF Confirmed By:Senthil Beltran
[2020-04-09 12:16] LABS: Adenovirus PCR Not Detected (NotDetected); Bordetella parapertussis PCR Not Detected (NotDetected); Bordetella pertussis PCR Not Detected (NotDetected); Chlamydia pneumoniae PCR Not Detected (NotDetected); Coronavirus 229E PCR Not Detected (NotDetected); Coronavirus CoV-2 (COVID19)PCR Not Detected (NotDetected); Coronavirus HKU1 PCR Not Detected (NotDetected); Coronavirus NL63 PCR Not Detected (NotDetected); Coronavirus OC43PCR Not Detected (NotDetected); Human Metapneumovirus PCR Not Detected (NotDetected); Influenza A PCR Not Detected (NotDetected); Influenza B PCR Not Detected (NotDetected); Mycoplasma pneumoniae PCR Not Detected (NotDetected); Parainfluenza Virus 1 PCR Not Detected (NotDetected); Parainfluenza Virus 2 PCR Not Detected (NotDetected); Parainfluenza Virus 3 PCR Not Detected (NotDetected); Parainfluenza Virus 4 PCR Not Detected (NotDetected); Respiratory Syncytial VirusPCR Not Detected (NotDetected); Rhinovirus/Enterovirus PCR Not Detected (NotDetected)
[2020-04-09] MEDS: MIRTAZAPINE SOLTAB 15 MG PO SCH (13:34)
[2020-04-09] MEDS: ALBUMIN 5% 250 ML IV SCH ×2 (15:24→16:28)
--- NOTE | 2020-04-09 19:42 | Hospitalist Progress Note ---
Date of Service April 09, 2020 Assessment & Plan (1) Pneumonia involving right lung: Patient is a 59 yr female with H/O Gastric bypass, severe protein calorie malnutrition, recent history of gastrotomy tube removed 02/02 secondary to recurrent fungal infection, history of PE on warfarin, chronic diastolic CHF, alcohol abuse, tobacco abuse, fibromyalgia, depression, intestinal postoperative nonabsorption, esophageal dysphagia, orthostatic hypotension, hyperlipidemia who presents to ED secondary to weakness for several weeks. Community-acquired pneumonia Hypoxia CXR:Right mid to upper lung zone airspace opacities suspicious for pneumonia. Clinical and radiographic follow-up is recommended. MRSA:Negative COVID Screen: Negative Biofire: Negative Blood Culture: No growth to date Normal Lactate levels Procalcitonin:1.03>1.97>2.26 Received IV fluids Continue Zosyn Day #4 Continue doxycycline Aspiration Precautions Home Inhalers PRN Saturating low 90s on 4 L of supplemental oxygen Repeat chest x-ray showed significant progression of bilateral opacities Low threshold to transfer to ICU if clinically deteriorates (2) Acute renal failure superimposed on stage 3a chronic kidney disease: MALAIKA on CKD III Likely prerenal/ATN ?Hepatorenal Syndrome Volume overload, intravascularly depleted Cr:1.7 > 1.6>1.8 Bladder Scan PRN Lasix held Cautious use of IV fluids IV Albumin PRN Avoid nephrotoxic agents as Monitor renal function Appreciate Nephrology Input Obtain ECHO (3) Hypokalemia: Replace electrolytes as needed Monitor (4) Hypomagnesemia: Replete electrolytes as needed Monitor . (5) Anemia: Symptomatic Anemia Likely Multifactorial--malnutritional, S/P gastric Bypass, Alcohol use Chronic Anemia On thiamine, folic acid daily along with B12 monthly Denies Bleeding Issues FOBT: Negative S/P 2 units PRBCs Monitor CBC (6) Hypotension: Chronic Hypotension H/O Orthostatic hypotension, likely worsened due to anemia, infection Continue midodrine --has been refusing most medications Denies Dizziness Monitor BP (7) Supratherapeutic INR: Monitor INR 7.6>5.4>3.2 Received vitamin K Hold Coumadin for now No bleeding issues Monitor INRy (8) Elevated TSH: TSH 9, free T4 near normal Prior outpatient thyroid function test unremarkable Plan repeat thyroid function test as outpatient (9) Alcohol abuse: Fatty Liver ? Cirrhosis Hyperammonemia ? 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 Nicotine patch (11) Chronic diastolic (congestive) heart failure: Volume overload Vascularly depleted Received albumin Monitor volume status closely Lasix held due to MALAIKA Monitor daily weights, strict I's and O's (12) Dyslipidemia: Continue statin (13) Severe protein-calorie malnutrition: Previously was on tube feeds--removed 02/02 Very Poor Oral Intake Albumin 1.1 Consulted dietitian Encourage increased PO Intake Need to consider parenteral nutrition Vs Tube feeds (14) Pulmonary embolism: H/O PE with cor pulmonale Supratherapeutic INR Hold Coumadin for now Monitor INR:3.2 today DVT Px: Supratherapeutic INR CODE STATUS Full code Disposition PT/OT prior to discharge Family Contact: Patient maribeth Watson [phone] Admission and Anticipated Discharge Date Admission Date: April 06, 2020 Subjective Patient is seen and examined at bedside Poor historian Lethargic and slow to respond this morning States having nausea and tiredness Persistent cough but not worsened today Repeat chest x-ray today showed significant progression of bilateral airspace opacities Discussed with patient's fianc over the phone Ammonia elevated on labs, patient mostly refusing lactulose Has chronic dysphagia Denies chest pain, abdominal pain Review of Systems Review of Systems: All systems reviewed & are unremarkable except as noted in HPI & below Physical Exam Physical Exam: Physical Exam: Vitals signs as noted above General Appearance:Chronic Ill appearing, Pale, no apparent distress Head: normocephalic, Atraumatic Eyes: normal inspection, EOMI +Pallor Neck: supple, Trachea midline Respiratory/Chest: Decreased breath sounds, No accessory muscle use Cardiovascular: S1, S2, No murmur Abdomen/GI:Soft, Non tender, Bowel sounds present Extremities/Musculoskelatal:normal inspection, 2+ B/L LE edema Neurologic/Psych:AAOX3, grossly no focal neurological deficits Skin: normal color, warm, +pretibial skin tear, multiple excoriations Results & Data Results & Data ([facility]) Vital Signs (Past 12 Hours) Vital Signs Temp Pulse Pulse Resp BP Pulse Ox 04/09/20 16:00 36.6 C 88 90 18 102/56 L 96 04/09/20 11:55 37.0 C 95 H 22 71/40 L 95 04/09/20 10:27 37.2 C 102 H 22 88/51 L 91 04/09/20 08:45 101 H 04/09/20 08:02 37.0 C 104 H 22 75/39 L 90 Laboratory Results Short CBC 04/09/20 Range/Units 07:23 WBC 8.14 (4.8-10.8) K/uL Hgb 8.1 L (12.0-16.0) g/dL Hct 23.5 L (37-47) % Plt Count 105 L (130-400) K/uL BMP 04/08/20 04/09/20 21:23 07:23 Sodium 143 143 Potassium 3.7 3.4 L Chloride 113 H 113 H Carbon Dioxide 24 23 BUN 14 13 Creatinine 1.72 H 1.83 H Glucose 45 L* 115 H Calcium 7.1 L 7.5 L Liver Function 04/08/20 04/09/20 Range/Units 21:23 07:23 Total Bilirubin 2.7 H (0.2-1) mg/dl Direct Bilirubin 1.9 H (0-0.2) mg/dl AST 32 (15-37) U/L ALT 24 (12-78) U/L Alkaline Phosphatase 156 H (45-117) U/L Albumin 1.5 L 1.3 L (3.4-5.0) gm/dl (1) Hypotension Hypotension type: unspecified hypotension type Qualified Code(s): I95.9 - Hypotension, unspecified (2) Pulmonary embolism Acute cor pulmonale presence: unspecified Chronicity: unspecified Pulmonary embolism type: unspecified Qualified Code(s): I26.99 - Other pulmonary embolism without acute cor pulmonale
[2020-04-09] MEDS: traZODone HCL 50 MG TAB PO SCH (21:50)
[2020-04-10] MEDS: PIPERACILLIN/TAZOBACTAM 3.375 GM in DEXTROSE 5% 100 ML IV SCH ×3 (01:38→18:12)
[2020-04-10 04:35] LABS: Hematocrit (blood only) 24.9 % (37-47); Hemoglobin 8.5 g/dL (12.0-16.0); Mean Corpuscular Hemoglobin 31.7 pg (25-34); Mean Corpuscular Hgb Conc 34.1 g/dL (32-36); Mean Corpuscular Volume 92.9 fL (80-100); RDW Coefficient of Variation 22.6 % (11.5-14.5); RDW Standard Deviation 72.8 fL (36.4-46.3); Red Blood Count 2.68 M/uL (4.2-5.4); White Blood Count 7.95 K/uL (4.8-10.8)
[2020-04-10 04:53] LABS: BUN Creatinine Ratio 6.3 (10-20); Calcium 6.8 mg/dl (8.5-10.1); Creatinine Clr Calc Pharmacy 31.8 ml/min; Est GFR (African American) 32.5; INR 4.1 (0.9-1.1); Magnesium 1.8 mg/dl (1.8-2.4); Potassium 3.5 mmol/L (3.5-5.1); Prothrombin Time 39.8 Seconds (9.0-12.0)
[2020-04-10] MEDS ORDERED: LACTATED RINGER'S 1,000 ML IV ONE (05:06)
[2020-04-10 05:09] LABS: Mean Platelet Volume 9.5 fL (7.4-10.4); Platelet Count 76 K/uL (130-400); Platelet Estimate Decreased (Normal)
[2020-04-10] MEDS ORDERED: MAGNESIUM SULFATE / D5W 1 GM/100 ML BAG IV ONE (05:10)
[2020-04-10] MEDS: MIDODRINE HCL 10 MG TAB PO SCH ×3 (05:10→16:45)
[2020-04-10] MEDS: ALBUMIN 25% 12.5 GM/50 ML VIAL IV SCH ×6 (05:10→22:53)
[2020-04-10 06:27] LABS: Albumin Level 1.6 gm/dl (3.4-5.0); Bilirubin Direct 3.1 mg/dl (0-0.2); Bilirubin,Total 4.3 mg/dl (0.2-1); Total Protein 4.1 gm/dl (6.4-8.2)
--- NOTE | 2020-04-10 08:22 | Ultrasound Report ---
US renal/blad retro comp HISTORY: 59 years-old Female renal failure acute renal failure COMPARISON: CT abdomen and pelvis 05/24/2019 TECHNIQUE: Multiple real-time sonographic images of the kidneys and urinary bladder were obtained ass essing grayscale appearance and color flow FINDINGS: Limited exam secondary to patient body habitus and obscuring bowel gas. The right kidney measures 9.8 cm in length. The left kidney is suboptimally visualized and measures a pproximately 9.1 cm. No renal calculi, hydronephrosis or suspicious mass lesion. The previously noted cyst of the inferior pole left kidney is not well visualized. Cortical thickness is within normal li mits. Decompressed urinary bladder with Palafox catheter. IMPRESSION: 1. Limited exam as above. 2. No renal calculi or hydronephrosis. ACT 112: Negative or not required by law. The above report was generated using voice recognition software. It may contain grammatical, syntax o r spelling errors. Electronically signed by: Yrn Holly M.D. 04/10/2020 8:21 AM
[2020-04-10] MEDS: LACTULOSE SYRUP 30 GM/45 ML UDP PO SCH ×3 (08:57→21:00)
[2020-04-10] MEDS: FOLIC ACID 1 MG TAB PO SCH (08:57)
[2020-04-10] MEDS: busPIRone 5 MG TAB PO SCH ×2 (08:57→21:00)
[2020-04-10] MEDS: CALCIUM 600MG + VIT D 400 IU TAB PO SCH ×2 (08:57→21:00)
[2020-04-10] MEDS: VENLAFAXINE HCL 37.5 MG TAB PO SCH ×3 (08:57→21:01)
[2020-04-10] MEDS: MAGNESIUM OXIDE 400 MG TAB PO SCH (08:58)
[2020-04-10] MEDS: PANTOprazole 40 MG TAB PO SCH ×2 (08:58→21:01)
[2020-04-10] MEDS: POTASSIUM CHLORIDE CRTAB 20 MEQ TABCR PO SCH (08:58)
[2020-04-10] MEDS: MIRTAZAPINE SOLTAB 15 MG PO SCH (08:58)
[2020-04-10] MEDS: MULTIVITAMIN CHEWABLE TAB PO SCH (08:58)
[2020-04-10] MEDS ORDERED: THIAMINE HCL 100 MG TAB PO SCH (09:00)
[2020-04-10] MEDS ORDERED: LACTATED RINGER'S 1,000 ML IV SCH (09:00)
[2020-04-10] MEDS ORDERED: ALBUT/IPRATROP 3MG/0.5MG NEB 3 ML VIAL NEB PRN (09:14)
[2020-04-10] MEDS: NICOTINE 21 MG/24 HR TDSY TD SCH (09:41)
[2020-04-10] MEDS: THIAMINE HCL 100 MG in SYRINGE 9 ML IV SCH (09:41)
[2020-04-10] MEDS: NYSTATIN CR 15 GM TUBE EXT SCH ×2 (09:42→21:12)
[2020-04-10] MEDS ORDERED: Nursing to Pharmacy Communication SCH (09:45)
--- NOTE | 2020-04-10 09:58 | XRay Report ---
XR chest 1V portable CLINICAL HISTORY: pneumonia, hypoxia COMPARISON STUDY: 04/09/2020 FINDINGS: The cardiac and mediastinal contours remain stable. There is slight progression in the exte nsive bilateral pulmonary airspace opacities. There are no large pleural effusions.[ IMPRESSION: Slight progression in the bilateral pulmonary airspace opacities consistent with a multif ocal pneumonia ACT 112: Negative or not required by law. Electronically signed by: Zachery Castro M.D. 04/10/2020 9:57 AM
[2020-04-10 10:35] LABS: Appearance Urine Cloudy (Clear); Bacteria Urine Automated Negative (Negative); Bilirubin Urine 1+ (Negative); Blood Urine 3+ (Negative); Color Urine Orange; Epithelial Cell Urine Auto 20-30 /lpf (0-5); Glucose Urine UA Negative (Negative); Ketones Urine Negative (Negative); Leukocyte Esterase Urine 1+ (Negative); Nitrite Urine Negative (Negative); Protein Urine 1+ (Negative); RBC Urine Automated >30 /hpf (0-4); Specific Gravity Urine 1.023 (1.000-1.030); Urobilinogen Urine Negative (Negative)
[2020-04-10 10:37] LABS: Ictotest Urine Positive (Negative)
[2020-04-10] MEDS: DOXYCYCLINE HYCLATE 100 MG in DEXTROSE 5% 100 ML IV SCH ×2 (11:14→22:17)
[2020-04-10 11:27] LABS: BUN Creatinine Ratio 6.6 (10-20); Calcium 7.3 mg/dl (8.5-10.1); Creatinine Clr Calc Pharmacy 35.2 ml/min; Est GFR (African American) 35.3; Est GFR (Non-African American) 30.5; Potassium 3.3 mmol/L (3.5-5.1)
--- NOTE | 2020-04-10 11:36 | Gastroenterology Progress Note ---
Date of Service April 10, 2020 Assessment & Plan (1) Acute renal failure: (2) Acute hypoxemic respiratory failure: (3) Pneumonia: (4) Pulmonary emboli: (5) Chronic diastolic (congestive) heart failure: Pt is a 59 y/o female re-evaluated for possible hepatorenal syndrome. She had medical hx of RYGB, PE on Warfarin, CHF, severe protein-calorie malnutrition, ETOH uses currently admitted w pneumonia and MALAIKA. In review of previous abdominal imaging w u/s and CT, her liver appear to may have slight signs of steatosis but no indication of chronic liver dz/cirrhosis. Unlikely having HRS On exam, she is having tachypnea, crackles on bilateral lungs and bilateral LE edema. Wonder if main issue is surrounding worsening CHF and she may also have congestive hepatopathy - Echocardiogram to be repeated - Check BNP - Hold further Albumin infusion until echo is completed; if indicated to have worsening CHF, should stop using Albumin and start diuretics - Nephrology following, on Midodrine - Gi to sign off; pls recall prn Admission and Anticipated Discharge Date Admission Date: April 06, 2020 Supervising Physician Co-Signing Physician Notes I saw and evaluated the patient this morning. We are consulted for evaluation of elevated creatinine and bilirubin. The patient does have a history of a John-en-Y gastric bypass and has no known liver disease. She does drink alcohol on a regular basis and was admitted initially with abdominal discomfort and what was thought to be detoxification. Of note the patient does have a history of a dilated cardiomyopathy. She notes that she does have some shortness of breath and swelling of her lower extremities. Physical exam Bilateral crackles heard Mild scleral icterus 2-3+ pitting edema in the lower extremities bilaterally No abdominal tenderness, no fluid wave noted Impression: Patient with a history of a dilated cardiomyopathy, I wonder if her symptoms may be related to congestive heart failure as opposed to underlying liver disease. Perhaps it would be of benefit to obtain a proBNP and an echocardiogram for further evaluation Subjective Pt was seen last week by GI service for chronic anemia w/o overt signs for GI bleeding. GI asked to see pt again today for possible HRS. Chart reviewed. She is admitted w pneumonia, now w MALAIKA, hx of RYGB, PE on Warfarin, Congestive HF, severe protein-calorie malnutrition, ETOH uses. She is currently in the process of getting transferred to ICU for worsening respiratory function. Is unable to provide history due to confusion/lethargy Review of Systems Review of Systems: Unobtainable due to reduced consciousness Physical Exam Constitutional: + ill appearing and + in distress (tachypnic) Eyes: PERRL, conjunctivae normal, anicteric sclerae ENMT: external ear and nose normal, oropharynx normal Respiratory: + uses accessory muscles Auscultation: + crackles Cardiovascular: RRR, no murmur, no edema Gastrointestinal (Abdomen): Inspection/Auscultation: + hypoactive bowel sounds Percussion/Palpation: abdomen soft grimaces on palpation of abd Skin: no rashes, warm and dry no jaundice Psychiatric: Lethargic and confused, unable to provide medical history Lymphatic: + lymphedema (bilateral LE ) Results & Data ([facility]) Vital Signs (Past 12 Hours) Vital Signs Temp Pulse Pulse Resp BP Pulse Ox 04/10/20 09:14 92 04/10/20 08:00 36.4 C L 101 H 105 H 22 91/54 L 90 04/10/20 03:39 36.4 C L 98 H 22 75/48 L 90 (1) Acute renal failure Acute renal failure type: unspecified Qualified Code(s): N17.9 - Acute kidney failure, unspecified (2) Pulmonary emboli Acute cor pulmonale presence: unspecified Chronicity: unspecified Pulmonary embolism type: unspecified Qualified Code(s): I26.99 - Other pulmonary embolism without acute cor pulmonale
[2020-04-10 11:58] LABS: Hepatitis B Surface Antigen Neg (Neg)
[2020-04-10 12:26] LABS: Hepatitis C IgG 13Yrs+Old_Rflx Neg (Neg)
--- NOTE | 2020-04-10 12:31 | Critical Care Consultation ---
Date of Consultation April 10, 2020 Assessment & Plan (1) Multiple organ failure with heart failure: Reason Critically Ill: Hypotension and acute kidney injury in setting of chronic disease with extensive past medical history and undergoing treatment for suspected hepatorenal syndrome with vasopressin drip PLAN: Neuro: Encephalopathylikely multifactorial in the setting of elevated ammonia, elevated BUN, and infection -Patient also has history of protein malnutrition and polysubstance abuse -Continue lactulose -See treatments for ARF and ID below -Starting high-dose thiamine for potential Warnicke's encephalopathy with malnutrition and alcoholism -Monitor Resp: Hypoxiachest x-ray consistent with multifocal pneumonia, currently undergoing treatment with broad spectrum antibiotic -Currently maintaining oxygen saturation on oxymask -Echo with EF 60 to 65% and evidence of grade 1 diastolic heart failure, elevated BNP correlates with CHF -Patient did have recent hospitalization for pulmonary embolism, however supratherapeutic INR on Coumadin -We will hold on diuresis for the time being as patient is currently hypotensive, but maintenance fluids DCed -Continuous monitor on pulse oximetry CV: Tachycardia and hypotension -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[employer] -Risk factors include gastric bypass surgery, alcoholism -Holding midodrine for vasopressin drip and albumin transfusion at this time as patient is being treated for suspected hepatorenal syndrome -Cannot rule out sepsis at this point as patient is undergoing treatment for pneumonia and has elevated pro Prem and lactate, see treatment below -Recent admission for PE with cor pulmonale, supratherapeutic on warfarin with INR 7.6 on admission -Echo with EF 65% and grade 1 diastolic dysfunction Fluids/Renal: Acute renal failurenephrology following and appreciate recommendations, no current indications for dialysis -Creatinine 1.7 since admission, most likely prerenal -No hydronephrosis on renal ultrasound -We will proceed with treatment for hepatorenal syndrome with albumin and vasopressin -Holding continue maintenance fluids for now as patient is diastolic heart failure receiving albumin transfusions -Avoid nephrotoxins and renally adjust medications -Trend with routine BMPs Lactic acidosisischemic versus septic etiology, improving. See management of hypotension and ID. We will continue to trend ID: Pneumonia/sepsis?Patient with hypotension, elevated procalcitonin and lactate -Chest x-ray consistent with multifocal pneumonia - urine culture and blood cultures pending -Continue broad-spectrum antibiotics with doxycycline and Zosyn for now GI/Nutrition: Severe protein calorie malnutrition -Multifactorial of this patient has history of gastric bypass, EtOH abuse, failure to thrive. Recently had PEG tube removed in February due to fungal infection -She is currently on full liquid diet, will likely need NG tube for supplemental feedings -Consult to dietitian and speech therapy for swallow study -Continue multivitamin, thiamine, folic acid Transaminitistotal bili 4.3, alkaline phosphatase 142, AST and ALT unremarkable - liver ultrasound on 04/10 consistent with hepatic steatosis and without significant biliary ductal dilation. S/p cholecystectomy. -Hepatitis panel pending -Patient with history of alcohol abuse -She has also been hypotensive on midodrine, currently undergoing hepatorenal syndrome therapy with vasopressin drip -Trending Heme: Anemia -s/p 2 unit RBC transfusion on 04/07. Hemoglobin currently stable at 8.5 this AM. No indication for transfusion at this time. Continue to trend CBCs DVT prophylaxis: SCDs, holding anticoagulation for supratherapeutic INR at this time. Trending coags Endocrine: ICU hyperglycemia protocol Vascular access: Peripheral IVs Code Status: Full code Disposition: Patient remain in ICU for further management at this time (2) Anemia: (3) Supratherapeutic INR: (4) Hypokalemia: (5) Hypomagnesemia: (6) Acute renal failure: (7) Elevated TSH: (8) Hypotension: (9) Acute renal failure superimposed on stage 3a chronic kidney disease: (10) Alcohol abuse: (11) Pulmonary emboli: (12) Severe protein-calorie malnutrition: History of Present Illness Reason for Consultation: Acute hypoxic respiratory failure Requesting Physician: David Torres MD Attending Physician: David Torres MD History of Present Illness Patient is a 59-year-old female with multiple chronic medical problems. She has had a John-en-Y gastric bypass and was seen approximately 1 year ago for acute PE with acute cor pulmonale. It was reported that the patient recently had a gastrostomy tube to assist with nutrition however that was removed at approximately February 02. The patient reportedly denied alcohol use however significant other reports that she is drinking 5 ounces of liquor daily. The patient's hypoxia has gotten worse and there is concern for acute worsening of hypoxic respiratory failure and multisystem organ failure. Allergies Allergy/AdvReac Type Severity Reaction Status Date / Time codeine Allergy Intermediate Diarrhea/Ra Verified 04/06/20 18:44 sh duloxetine Allergy Intermediate Crawling Verified 04/06/20 18:44 out of her skin sensation NSAIDS (Non-Steroidal Allergy Unknown None Verified 04/06/20 18:44 Anti-Inflamma Bactrim AdvReac Intermediate DELIRIUM Verified 12/28/17 19:46 clonazepam AdvReac Intermediate Syncope Verified 04/06/20 18:44 hydrocodone AdvReac Intermediate Over Verified 04/06/20 18:44 sedated hydromorphone AdvReac Intermediate Weakness Verified 04/06/20 18:44 and sweating sulfamethoxazole AdvReac Intermediate DELIRIUM Verified 04/06/20 18:44 trimethoprim AdvReac Intermediate DELIRIUM Verified 04/06/20 18:44 aspirin AdvReac Mild STOMACH Verified 04/06/20 18:44 IRRITATION cephalexin AdvReac Mild GI SYMPTOMS Verified 09/29/19 14:46 Home Medications Medication Instructions Recorded Confirmed Type albuterol sulfate [Ventolin HFA] 2 puff INHALATION QID PRN 01/04/18 04/06/20 History omeprazole 20 mg PO BID 01/04/18 04/06/20 History cyanocobalamin (vitamin B-12) 1,000 mcg IM MONTHLY 03/24/18 04/06/20 History nystatin 1 applic TOPICAL TID PRN 11/20/18 04/06/20 History ondansetron HCl 4 mg PO Q8H PRN 11/20/18 04/06/20 History thiamine HCl (vitamin B1) 100 mg PO BID 11/20/18 04/06/20 History buspirone 20 mg PO BID 04/26/19 04/06/20 History venlafaxine 75 mg PO TID 04/26/19 04/06/20 History vitamin A 10,000 unit PO QAM 05/17/19 04/06/20 History midodrine 10 mg PO TID@0800,1200,1700 #30 tab 05/25/19 04/06/20 Rx acetaminophen 650 mg PO QID PRN 06/08/19 04/06/20 History warfarin [Jantoven] 5 mg PO DAILY 09/29/19 04/06/20 History ascorbic acid (vitamin C) [Vitamin 500 mg PO DAILY 04/06/20 04/06/20 History C] calcium citrate-vitamin D3 1 tab PO BID 04/06/20 04/06/20 History [Citracal + D Maximum] diphenhydramine HCl [Benadryl] 50 mg PO HS PRN 04/06/20 04/06/20 History folic acid 1 mg PO DAILY 04/06/20 04/06/20 History furosemide [Lasix] 20 mg PO DAILY 04/06/20 04/06/20 History lidocaine 3 patch TOPICAL DAILY 04/06/20 04/06/20 History loperamide [Imodium] 2 mg PO UD PRN 04/06/20 04/06/20 History magnesium chloride 64 mg PO BID 04/06/20 04/06/20 History pedi multivit 17-iron fumarate 1 tab PO BID 04/06/20 04/06/20 History [Flintstones Plus Iron] silver sulfadiazine [Silvadene] 1 applic TOPICAL UD PRN 04/06/20 04/06/20 History trazodone 50 mg PO HS 04/06/20 04/06/20 History zinc sulfate 220 mg PO DAILY 04/06/20 04/06/20 History mirtazapine 45 mg PO DAILY 04/09/20 04/09/20 History Patient History Medical History Anxiety Cardiac murmur faint CHF (congestive heart failure) severe R HF 05/2019 (in setting of PE) Chronic back pain Chronic obstructive pulmonary disease inhaler prn Congestive heart failure, unspecified (08/09/12) "echo 03/25/13-grade 1 diastolic dysfunction with mild concentric LVH" Degenerative disc disease Dyslipidemia Dysphagia Elevated liver enzymes per pt currently elevated Fatty liver Fibromyalgia GERD (gastroesophageal reflux disease) Hematoma of right lower extremity History of gastric ulcer Hypotension on chronic midodrine Marijuana abuse Opiate abuse, continuous Organic sleep disorder Osteoarthritis Osteoarthritis Peripheral arterial disease Severe protein-calorie malnutrition Spinal stenosis Traumatic open wound of left lower leg Traumatic open wound of right lower leg Traumatic wound Venous stasis ulcer Surgical History Gastric bypass status for obesity H/O arthroscopic knee surgery "R knee; 1998" History of arthroscopy of right knee History of cholecystectomy History of colonoscopy History of esophagogastroduodenoscopy (EGD) History of repair of hiatal hernia History of tooth extraction History of wisdom tooth extraction Hx of appendectomy Hx of gastric bypass Hx of repair of right rotator cuff S/P bronchoscopy Status post repair of paraesophageal diaphragmatic hernia "Dr. Shay [facility] [place] 01/20/17" Family History Other Family history not known due to adoption Social History Smoking Status: Current every day smoker Tobacco Type: Cigarettes packs per day: 2; Cigarettes Per Day: Pack; Second Hand Exposure: Yes (father smokes); Hx Alcohol Use: No Hx Substance Use: No Preferred Language: Nepali Communication Ability: Effective Visual Impairment: No Limitations Hearing Ability: Normal Wind Turbine Technician Required: No Beliefs That Will Affect Care: None marital status: Current Living Situation: Spouse Current Living Situation Comment: lives with fiance current occupational status: unemployed Other Information That Helps Us Care for You: No Feels Safe at Home: Yes Safety Concerns: Feels Safe At This Time during the past year weight has: other Assistive Devices: Oxygen - Continuous Results & Data Results & Data ([facility]) Vital Signs (Past 12 Hours) Vital Signs Temp Pulse Pulse Resp BP Pulse Ox 04/10/20 12:00 36.6 C 108 H 22 77/50 L 92 04/10/20 11:00 106 H 24 81/61 L 94 04/10/20 10:10 36.5 C 110 H 28 H 87/46 L 90 04/10/20 09:14 92 04/10/20 08:00 36.4 C L 101 H 105 H 22 91/54 L 90 04/10/20 03:39 36.4 C L 98 H 22 75/48 L 90 Laboratory Results 04/10/20 04/10/20 04/10/20 Range/Units Unknown Unknown 11:02 WBC (4.8-10.8) K/uL RBC (4.2-5.4) M/uL Hgb (12.0-16.0) g/dL Hct (37-47) % MCV (80-100) fL MCH (25-34) pg MCHC (32-36) g/dL RDW Std Deviation (36.4-46.3) fL RDW Coeff of Liz (11.5-14.5) % Plt Count (130-400) K/uL MPV (7.4-10.4) fL Platelet Estimate (Normal) PT (9.0-12.0) Seconds INR (0.9-1.1) Sodium (136-145) mmol/L Potassium (3.5-5.1) mmol/L Chloride (98-107) mmol/L Carbon Dioxide (21-32) mmol/L Anion Gap (3-11) BUN (7-18) mg/dl Creatinine (0.6-1.2) mg/dl Est Cr Clr Drug Dosing ml/min Est GFR ( Amer) Est GFR (Non-Af Amer) BUN/Creatinine Ratio (10-20) Glucose (70-99) mg/dl Lactate (0.4-2.0) mmol/L Calcium (8.5-10.1) mg/dl Magnesium (1.8-2.4) mg/dl Total Bilirubin (0.2-1) mg/dl Direct Bilirubin (0-0.2) mg/dl AST (15-37) U/L ALT (12-78) U/L Alkaline Phosphatase (45-117) U/L NT-Pro-B Natriuret Pep 4845 H (0-900) pg/ml Total Protein (6.4-8.2) gm/dl Albumin (3.4-5.0) gm/dl Procalcitonin (0-0.5) ng/ml Urine Color [place] Urine Appearance Cloudy A (Clear) Urine pH 5.0 (4.5-7.5) Ur Specific [place] 1.023 (1.000-1.030) Urine Protein 1+ H (Negative) Urine Glucose (UA) Negative (Negative) Urine Ketones Negative (Negative) Urine Blood 3+ H (Negative) Urine Nitrite Negative (Negative) Urine Bilirubin 1+ H (Negative) Urine Urobilinogen Negative (Negative) Ur Leukocyte Esterase 1+ H (Negative) Urine WBC (Auto) 10-30 H (0-5) /hpf Urine RBC (Auto) >30 H (0-4) /hpf U Hyaline Cast (Auto) 5-10 H (0-5) /lpf U Epithel Cells (Auto) 20-30 H (0-5) /lpf Urine Bacteria (Auto) Negative (Negative) Ur Random Sodium 41 mmol/L Nasal Screen MRSA (PCR) (Negative) Hepatitis A IgM Ab Hep Bs Antigen (Neg) Hep B Core IgM Ab Hepatitis C Antibody (Neg) 04/10/20 04/10/20 04/10/20 Range/Units 11:02 11:02 11:02 WBC (4.8-10.8) K/uL RBC (4.2-5.4) M/uL Hgb (12.0-16.0) g/dL Hct (37-47) % MCV (80-100) fL MCH (25-34) pg MCHC (32-36) g/dL RDW Std Deviation (36.4-46.3) fL RDW Coeff of Liz (11.5-14.5) % Plt Count (130-400) K/uL MPV (7.4-10.4) fL Platelet Estimate (Normal) PT (9.0-12.0) Seconds INR (0.9-1.1) Sodium (136-145) mmol/L Potassium (3.5-5.1) mmol/L Chloride (98-107) mmol/L Carbon Dioxide (21-32) mmol/L Anion Gap (3-11) BUN (7-18) mg/dl Creatinine (0.6-1.2) mg/dl Est Cr Clr Drug Dosing ml/min Est GFR ( Amer) Est GFR (Non-Af Amer) BUN/Creatinine Ratio (10-20) Glucose (70-99) mg/dl Lactate 3.9 H* (0.4-2.0) mmol/L Calcium (8.5-10.1) mg/dl Magnesium (1.8-2.4) mg/dl Total Bilirubin (0.2-1) mg/dl Direct Bilirubin (0-0.2) mg/dl AST (15-37) U/L ALT (12-78) U/L Alkaline Phosphatase (45-117) U/L NT-Pro-B Natriuret Pep (0-900) pg/ml Total Protein (6.4-8.2) gm/dl Albumin (3.4-5.0) gm/dl Procalcitonin (0-0.5) ng/ml Urine Color Urine Appearance (Clear) Urine pH (4.5-7.5) Ur Specific [place] (1.000-1.030) Urine Protein (Negative) Urine Glucose (UA) (Negative) Urine Ketones (Negative) Urine Blood (Negative) Urine Nitrite (Negative) Urine Bilirubin (Negative) Urine Urobilinogen (Negative) Ur Leukocyte Esterase (Negative) Urine WBC (Auto) (0-5) /hpf Urine RBC (Auto) (0-4) /hpf U Hyaline Cast (Auto) (0-5) /lpf U Epithel Cells (Auto) (0-5) /lpf Urine Bacteria (Auto) (Negative) Ur Random Sodium mmol/L Nasal Screen MRSA (PCR) (Negative) Hepatitis A IgM Ab Pending Hep Bs Antigen Neg (Neg) Hep B Core IgM Ab Pending Hepatitis C Antibody Neg (Neg) 04/10/20 04/10/20 04/10/20 Range/Units 11:02 10:10 04:27 WBC (4.8-10.8) K/uL RBC (4.2-5.4) M/uL Hgb (12.0-16.0) g/dL Hct (37-47) % MCV (80-100) fL MCH (25-34) pg MCHC (32-36) g/dL RDW Std Deviation (36.4-46.3) fL RDW Coeff of Liz (11.5-14.5) % Plt Count (130-400) K/uL MPV (7.4-10.4) fL Platelet Estimate (Normal) PT (9.0-12.0) Seconds INR (0.9-1.1) Sodium 145 (136-145) mmol/L Potassium 3.3 L (3.5-5.1) mmol/L Chloride 116 H (98-107) mmol/L Carbon Dioxide 20 L (21-32) mmol/L Anion Gap 9.0 (3-11) BUN 12 (7-18) mg/dl Creatinine 1.79 H (0.6-1.2) mg/dl Est Cr Clr Drug Dosing 35.2 ml/min Est GFR ( Amer) 35.3 Est GFR (Non-Af Amer) 30.5 BUN/Creatinine Ratio 6.6 L (10-20) Glucose 124 H (70-99) mg/dl Lactate (0.4-2.0) mmol/L Calcium 7.3 L (8.5-10.1) mg/dl Magnesium (1.8-2.4) mg/dl Total Bilirubin 4.3 H D (0.2-1) mg/dl Direct Bilirubin 3.1 H D (0-0.2) mg/dl AST 31 (15-37) U/L ALT 22 (12-78) U/L Alkaline Phosphatase 142 H (45-117) U/L NT-Pro-B Natriuret Pep (0-900) pg/ml Total Protein 4.1 L (6.4-8.2) gm/dl Albumin 1.6 L (3.4-5.0) gm/dl Procalcitonin (0-0.5) ng/ml Urine Color Urine Appearance (Clear) Urine pH (4.5-7.5) Ur Specific [place] (1.000-1.030) Urine Protein (Negative) Urine Glucose (UA) (Negative) Urine Ketones (Negative) Urine Blood (Negative) Urine Nitrite (Negative) Urine Bilirubin (Negative) Urine Urobilinogen (Negative) Ur Leukocyte Esterase (Negative) Urine WBC (Auto) (0-5) /hpf Urine RBC (Auto) (0-4) /hpf U Hyaline Cast (Auto) (0-5) /lpf U Epithel Cells (Auto) (0-5) /lpf Urine Bacteria (Auto) (Negative) Ur Random Sodium mmol/L Nasal Screen MRSA (PCR) Negative (Negative) Hepatitis A IgM Ab Hep Bs Antigen (Neg) Hep B Core IgM Ab Hepatitis C Antibody (Neg) 04/10/20 04/10/20 04/10/20 Range/Units 04:27 04:27 04:27 WBC 7.95 (4.8-10.8) K/uL RBC 2.68 L (4.2-5.4) M/uL Hgb 8.5 L (12.0-16.0) g/dL Hct 24.9 L (37-47) % MCV 92.9 (80-100) fL MCH 31.7 (25-34) pg MCHC 34.1 (32-36) g/dL RDW Std Deviation 72.8 H (36.4-46.3) fL RDW Coeff of Liz 22.6 H (11.5-14.5) % Plt Count 76 L (130-400) K/uL MPV 9.5 (7.4-10.4) fL Platelet Estimate Decreased L (Normal) PT (9.0-12.0) Seconds INR (0.9-1.1) Sodium (136-145) mmol/L Potassium (3.5-5.1) mmol/L Chloride (98-107) mmol/L Carbon Dioxide (21-32) mmol/L Anion Gap (3-11) BUN (7-18) mg/dl Creatinine (0.6-1.2) mg/dl Est Cr Clr Drug Dosing ml/min Est GFR ( Amer) Est GFR (Non-Af Amer) BUN/Creatinine Ratio (10-20) Glucose (70-99) mg/dl Lactate 3.7 H* (0.4-2.0) mmol/L Calcium (8.5-10.1) mg/dl Magnesium (1.8-2.4) mg/dl Total Bilirubin (0.2-1) mg/dl Direct Bilirubin (0-0.2) mg/dl AST (15-37) U/L ALT (12-78) U/L Alkaline Phosphatase (45-117) U/L NT-Pro-B Natriuret Pep (0-900) pg/ml Total Protein (6.4-8.2) gm/dl Albumin (3.4-5.0) gm/dl Procalcitonin 2.48 H (0-0.5) ng/ml Urine Color Urine Appearance (Clear) Urine pH (4.5-7.5) Ur Specific [place] (1.000-1.030) Urine Protein (Negative) Urine Glucose (UA) (Negative) Urine Ketones (Negative) Urine Blood (Negative) Urine Nitrite (Negative) Urine Bilirubin (Negative) Urine Urobilinogen (Negative) Ur Leukocyte Esterase (Negative) Urine WBC (Auto) (0-5) /hpf Urine RBC (Auto) (0-4) /hpf U Hyaline Cast (Auto) (0-5) /lpf U Epithel Cells (Auto) (0-5) /lpf Urine Bacteria (Auto) (Negative) Ur Random Sodium mmol/L Nasal Screen MRSA (PCR) (Negative) Hepatitis A IgM Ab Hep Bs Antigen (Neg) Hep B Core IgM Ab Hepatitis C Antibody (Neg) 04/10/20 04/10/20 Range/Units 04:27 04:27 WBC (4.8-10.8) K/uL RBC (4.2-5.4) M/uL Hgb (12.0-16.0) g/dL Hct (37-47) % MCV (80-100) fL MCH (25-34) pg MCHC (32-36) g/dL RDW Std Deviation (36.4-46.3) fL RDW Coeff of Liz (11.5-14.5) % Plt Count (130-400) K/uL MPV (7.4-10.4) fL Platelet Estimate (Normal) PT 39.8 H (9.0-12.0) Seconds INR 4.1 H (0.9-1.1) Sodium 143 (136-145) mmol/L Potassium 3.5 (3.5-5.1) mmol/L Chloride 115 H (98-107) mmol/L Carbon Dioxide 22 (21-32) mmol/L Anion Gap 6.0 (3-11) BUN 12 (7-18) mg/dl Creatinine 1.92 H (0.6-1.2) mg/dl Est Cr Clr Drug Dosing 31.8 ml/min Est GFR ( Amer) 32.5 Est GFR (Non-Af Amer) 28.0 BUN/Creatinine Ratio 6.3 L (10-20) Glucose 192 H (70-99) mg/dl Lactate (0.4-2.0) mmol/L Calcium 6.8 L (8.5-10.1) mg/dl Magnesium 1.8 (1.8-2.4) mg/dl Total Bilirubin (0.2-1) mg/dl Direct Bilirubin (0-0.2) mg/dl AST (15-37) U/L ALT (12-78) U/L Alkaline Phosphatase (45-117) U/L NT-Pro-B Natriuret Pep (0-900) pg/ml Total Protein (6.4-8.2) gm/dl Albumin (3.4-5.0) gm/dl Procalcitonin (0-0.5) ng/ml Urine Color Urine Appearance (Clear) Urine pH (4.5-7.5) Ur Specific [place] (1.000-1.030) Urine Protein (Negative) Urine Glucose (UA) (Negative) Urine Ketones (Negative) Urine Blood (Negative) Urine Nitrite (Negative) Urine Bilirubin (Negative) Urine Urobilinogen (Negative) Ur Leukocyte Esterase (Negative) Urine WBC (Auto) (0-5) /hpf Urine RBC (Auto) (0-4) /hpf U Hyaline Cast (Auto) (0-5) /lpf U Epithel Cells (Auto) (0-5) /lpf Urine Bacteria (Auto) (Negative) Ur Random Sodium mmol/L Nasal Screen MRSA (PCR) (Negative) Hepatitis A IgM Ab Hep Bs Antigen (Neg) Hep B Core IgM Ab Hepatitis C Antibody (Neg) Diagnostic Findings Reviewed her echocardiogram: Left ventricle is normal in size mild left ventricular hypertrophy normal ejection fraction wall motion is normal. Right ventricle cavity is normal in size right ventricular systolic function is normal Left atrial size is normal right atrial size is normal, no ASD detected, PFO was not assessed No obvious valvulopathy, great vessels: Aortic root is normal in size: Grade 1 diastolic dysfunction. This was compared to an echocardiogram obtained May 18, 2019: Her right ventricle has appeared to improved from acute cor pulmonale. Coding Level of Care Code Critical Care 1st -74 mins Diagnoses Multiple organ failure with heart failure I50.9 Anemia D51.3 Anemia type: B12 deficiency Vitamin B12 deficiency anemia type: other dietary B12 deficiency Supratherapeutic INR R79.1 Hypokalemia E87.6 Hypomagnesemia E83.42 Acute renal failure N17.9 Acute renal failure type: unspecified Elevated TSH R79.89 Hypotension I95.9 Hypotension type: unspecified hypotension type Acute renal failure superimposed on stage 3a chronic kidney disease N17.9; N18.31 Alcohol abuse F10.10 Pulmonary emboli I26.99 Acute cor pulmonale presence: unspecified Chronicity: unspecified Pulmonary embolism type: unspecified Severe protein-calorie malnutrition E43 Time Spent (min) 60 (1) Acute renal failure Acute renal failure type: unspecified Qualified Code(s): N17.9 - Acute kidney failure, unspecified (2) Anemia Anemia type: B12 deficiency Vitamin B12 deficiency anemia type: other dietary B12 deficiency Qualified Code(s): D51.3 - Other dietary vitamin B12 deficiency anemia (3) Pulmonary emboli Acute cor pulmonale presence: unspecified Chronicity: unspecified Pulmonary embolism type: unspecified Qualified Code(s): I26.99 - Other pulmonary embolism without acute cor pulmonale (4) Hypotension Hypotension type: unspecified hypotension type Qualified Code(s): I95.9 - Hypotension, unspecified
--- NOTE | 2020-04-10 13:11 | Nephrology Progress Note ---
Date of Service April 10, 2020 Assessment & Plan (1) Acute renal failure: renal function essentially plateau'd since admission creatinine 1.7-1.9 > may well be prerenal. already had renal failure in march (see c/s note). while HRS is on the differential so are several other etiologies including prerenal, ATN. not clear to me and defer to primary srevice/GI on this how severe her liver disease is > INR noted; looks also to be in heart failure and septic (?PNA). no indication for dialysis. would not start empiric tx for HRS. she is 4L postiive yesterday and almost 10L positive since admission > (likely not truly 10L b/c had no ybarra until today) . renal u/s unrevealing. -daily bmp -hold albumin IV for now and further IVF until TTE read >> likely needs lasix and pressor; reluctant to dose lasix until we have better bp support -daily bmp and phos and mag and calcium -cont K supplements and midodrine (2) Severe protein-calorie malnutrition: suspect this is driving renal failure which is progressive from March -work w/ nutrition/GI to get comprehensive plan on this -consider NGT/TF (3) Hypotension: on chronic midodrine max dose since early 2019 w/ markedly worse HF May 2019 in setting of PE >recheck TTE -cont midodrine for now Admission and Anticipated Discharge Date Admission Date: April 06, 2020 Subjective seen on rounds at 1030; moved to ICU for hypotension, elevated lactate; TTE pending Review of Systems Review of Systems: ROS limited by pt weakness, dyspnea Constitutional: + fatigue and + weakness Respiratory: + dyspnea Cardiovascular: + edema Gastrointestinal: no abdominal pain, no nausea and no vomiting Physical Exam Constitutional: well developed, + acute distress (mild w/ breathing), + ill appearing and + malnourished Eyes: EOM intact bilaterally ENMT: Ears: no external ear abnormality Nose: no external nose abnormality Mouth: + dry oral mucous membranes Neck: no nuchal rigidity Respiratory: + labored breathing Auscultation: + diminished lung sounds Cardiovascular: Rate/Rhythm: regular rate and regular rhythm Extremities: + edema (trace BLE; 2+ pedal) Gastrointestinal (Abdomen): Inspection/Auscultation: normal bowel sounds Percussion/Palpation: abdomen soft; abdomen nontender Musculoskeletal: Extremities: + limited ROM of extremities and + abnormal strength Skin: no rashes, warm and dry Trauma: + evidence of skin trauma, + abrasion and + contusion Neurologic: moves all extremities Speech / Cognition: + abnormal cognition Psychiatric: Orientation: oriented to person and oriented to place Affect: + flat affect Results & Data ([facility]) Vital Signs (Past 12 Hours) Vital Signs Temp Pulse Pulse Resp BP Pulse Ox 04/10/20 12:00 36.6 C 108 H 22 77/50 L 92 04/10/20 11:00 106 H 24 81/61 L 94 04/10/20 10:10 36.5 C 110 H 28 H 87/46 L 90 04/10/20 09:14 92 04/10/20 08:00 36.4 C L 101 H 105 H 22 91/54 L 90 04/10/20 03:39 36.4 C L 98 H 22 75/48 L 90 Laboratory Results 04/10/20 04:27 04/10/20 11:02 lactate 3.9; BNP 4845 Diagnostic Findings cxr progression in the bilateral pulmonary airspace opacities consistent with a multifocal pneumonia renal u/s suboptimal > Limited exam secondary to patient body habitus and obscuring bowel gas. The right kidney measures 9.8 cm in length. The left kidney is suboptimally visualized and measures approximately 9.1 cm. No renal calculi, hydronephrosis or suspicious mass lesion. The previously noted cyst of the inferior pole left kidney is not well visualized. Cortical thickness is within normal limits. Decompressed urinary bladder with Ybarra catheter. IMPRESSION: 1. Limited exam as above. 2. No renal calculi or hydronephrosis. (1) Acute renal failure Acute renal failure type: unspecified Qualified Code(s): N17.9 - Acute kidney failure, unspecified (2) Hypotension Hypotension type: unspecified hypotension type Qualified Code(s): I95.9 - Hypotension, unspecified
--- NOTE | 2020-04-10 14:45 | Ultrasound Report ---
US liver CLINICAL HISTORY: Elevated LFTs COMPARISON STUDY: CT of the abdomen and pelvis May 24, 2019. FINDINGS: There is no biliary ductal dilatation status post cholecystectomy although this exam is com promised by suboptimal penetration. Common bile duct measures approximately 5 mm in caliber. The panc reas is obscured. The liver is echogenic. There is no right hydronephrosis. Trace perihepatic ascites is noted. IMPRESSION: 1. Exam compromised by suboptimal penetration. No significant biliary ductal dilatation status post c holecystectomy. 2. Increased hepatic echogenicity suggestive of hepatic steatosis. 3. Trace perihepatic ascites. 4. Obscured pancreas. ACT 112: Negative or not required by law. Electronically signed by: Richard Abrams M.D. 04/10/2020 2:44 PM
--- NOTE | 2020-04-10 17:13 | Hospitalist Progress Note ---
Date of Service April 10, 2020 Assessment & Plan (1) Pneumonia involving right lung: Patient is a 59 yr female with H/O Gastric bypass, severe protein calorie malnutrition, recent history of gastrotomy tube removed 02/02 secondary to recurrent fungal infection, history of PE on warfarin, chronic diastolic CHF, alcohol abuse, tobacco abuse, fibromyalgia, depression, intestinal postoperative nonabsorption, esophageal dysphagia, orthostatic hypotension, hyperlipidemia who presents to ED secondary to weakness for several weeks. Community-acquired pneumonia Hypoxia Severe Sepsis CXR:Right mid to upper lung zone airspace opacities suspicious for pneumonia. Clinical and radiographic follow-up is recommended. Repeat chest x-ray showed significant progression of bilateral opacities MRSA:Negative COVID Screen: Negative Biofire: Negative Blood Culture: No growth to date Urine Cx:pending Normal Lactate levels on presentation Repeat Lactic acid:3.9 Procalcitonin:1.03>1.97>2.26>2.48 Received IV fluids Continue Zosyn, doxycycline Aspiration Precautions Home Inhalers PRN Saturating 95 % on 6 L of supplemental oxygen Transferred to ICU as clinically deteriorating Appreciate Business Process Associate help (2) Acute renal failure superimposed on stage 3a chronic kidney disease: MALAIKA on CKD III Likely prerenal/ATN DD:Hepatorenal Syndrome Volume overload, intravascularly depleted Cr:1.7 > 1.6>1.79 Renal USD: Limited exam as above. No renal calculi or hydronephrosis. Bladder Scan PRN Lasix held Cautious use of IV fluids IV Albumin PRN Avoid nephrotoxic agents as Monitor renal function Appreciate Nephrology Input (3) Hypokalemia: Replace electrolytes as needed Monitor (4) Hypomagnesemia: Replete electrolytes as needed Monitor . (5) Anemia: Symptomatic Anemia Likely Multifactorial--malnutritional, S/P gastric Bypass, Alcohol use Chronic Anemia On thiamine, folic acid daily along with B12 monthly Denies Bleeding Issues FOBT: Negative S/P 2 units PRBCs Monitor CBC (6) Hypotension: Chronic Hypotension H/O Orthostatic hypotension, likely worsened due to anemia, infection Continue midodrine --has been refusing most medications Denies Dizziness Monitor BP (7) Supratherapeutic INR: Monitor INR 7.6>5.4>3.2>4.1 Received vitamin K Hold Coumadin for now No bleeding issues Monitor INR (8) Elevated TSH: TSH 9, free T4 near normal Prior outpatient thyroid function test unremarkable Plan repeat thyroid function test as outpatient (9) Alcohol abuse: Fatty Liver ? Cirrhosis Hyperammonemia ? Hepatorenal syndrome Drinks 5 ounces of hard liquor daily per fianc Continue thiamine, folic acid Ativan PRN cautiously Monitor for withdrawal continue lactulose as tolerated GI consulted (10) Tobacco use disorder: Rig Hand to quit smoking Nicotine patch (11) Chronic diastolic (congestive) heart failure: Volume overload in setting os severe sepsis and severe protein calorie malnutrition Intravascular depleted ECHO: Mild concentric LVH, EF 60 to 65%. No segmental left ventricle wall motion abnormality. Grade 1 diastolic dysfunction. Aortic valve sclerosis mild, without significant aortic valvular stenosis. Received albumin Monitor volume status closely Lasix held due to MALAIKA Monitor daily weights, strict I's and O's (12) Dyslipidemia: Continue statin (13) Severe protein-calorie malnutrition: Previously was on tube feeds--removed 02/02 Very Poor Oral Intake Albumin 1.1 Consulted dietitian Encourage increased PO Intake Need to consider parenteral nutrition Vs Tube feeds (14) Pulmonary embolism: H/O PE with cor pulmonale Supratherapeutic INR Hold Coumadin for now Monitor INR:4.1 today DVT Px: Supratherapeutic INR CODE STATUS Full code Disposition PT/OT prior to discharge Family Contact: Patient maribeth Watson [phone] Admission and Anticipated Discharge Date Admission Date: April 06, 2020 Subjective Patient is seen and examined at bedside Poor historian States having generalized pain Feels very tired, very poor appetite Denies chest pain Lactic acid elevated overnight Requiring 6 L of supplemental oxygen to maintain saturations Discussed with repairer helper today and transfer to ICU Also discussed with GI, nephrology today Review of Systems Review of Systems: All systems reviewed & are unremarkable except as noted in HPI & below Physical Exam Physical Exam: Physical Exam: Vitals signs as noted above General Appearance:Chronic Ill appearing, Pale, malnourished Head: normocephalic, Atraumatic Eyes: normal inspection, EOMI +Pallor Neck: supple, Trachea midline Respiratory/Chest: Decreased breath sounds, Basal crackles Cardiovascular: S1, S2, No murmur Abdomen/GI:Soft, Non tender, Bowel sounds present Extremities/Musculoskelatal:normal inspection, 2+ B/L LE edema Neurologic/Psych:AAOX3, grossly no focal neurological deficits Skin: normal color, warm, +pretibial skin tear, multiple excoriations Results & Data Results & Data ([facility]) Vital Signs (Past 12 Hours) Vital Signs Temp Pulse Pulse Resp BP Pulse Ox 04/10/20 14:00 36.5 C 98 H 20 84/44 L 95 04/10/20 13:00 102 H 20 75/52 L 93 04/10/20 12:00 36.6 C 108 H 22 77/50 L 92 04/10/20 11:00 106 H 24 81/61 L 94 04/10/20 10:10 36.5 C 110 H 28 H 87/46 L 90 04/10/20 09:14 92 04/10/20 08:00 36.4 C L 101 H 105 H 22 91/54 L 90 Laboratory Results Short CBC 04/10/20 Range/Units 04:27 WBC 7.95 (4.8-10.8) K/uL Hgb 8.5 L (12.0-16.0) g/dL Hct 24.9 L (37-47) % Plt Count 76 L (130-400) K/uL BMP 04/10/20 04/10/20 04:27 11:02 Sodium 143 145 Potassium 3.5 3.3 L Chloride 115 H 116 H Carbon Dioxide 22 20 L BUN 12 12 Creatinine 1.92 H 1.79 H Glucose 192 H 124 H Calcium 6.8 L 7.3 L Liver Function 04/10/20 Range/Units 04:27 Total Bilirubin 4.3 H D (0.2-1) mg/dl Direct Bilirubin 3.1 H D (0-0.2) mg/dl AST 31 (15-37) U/L ALT 22 (12-78) U/L Alkaline Phosphatase 142 H (45-117) U/L Albumin 1.6 L (3.4-5.0) gm/dl Urine 04/10/20 Range/Units Unknown Urine Color [place] Urine Appearance Cloudy A (Clear) Urine pH 5.0 (4.5-7.5) Ur Specific [place] 1.023 (1.000-1.030) Urine Protein 1+ H (Negative) Urine Glucose (UA) Negative (Negative) (1) Anemia Anemia type: B12 deficiency Vitamin B12 deficiency anemia type: other dietary B12 deficiency Qualified Code(s): D51.3 - Other dietary vitamin B12 deficiency anemia (2) Hypotension Hypotension type: unspecified hypotension type Qualified Code(s): I95.9 - Hypotension, unspecified (3) Pulmonary embolism Acute cor pulmonale presence: unspecified Chronicity: unspecified Pulmonary embolism type: unspecified Qualified Code(s): I26.99 - Other pulmonary embolism without acute cor pulmonale
[2020-04-10] MEDS ORDERED: STAT IV Infusion **Titration per Protocol STA (19:09)
[2020-04-10] MEDS: VASOPRESSIN 20 UNITS in 0.9 % SODIUM CHLORIDE 100 ML IV SCH (20:13)
[2020-04-10] MEDS ORDERED: ALBUMIN 25% 12.5 GM/50 ML VIAL IV SCH (20:30)
[2020-04-10] MEDS: traZODone HCL 50 MG TAB PO SCH (21:01)
[2020-04-10] MEDS: THIAMINE HCL 500 MG in 0.9 % SODIUM CHLORIDE 100 ML IV SCH (21:13)
[2020-04-10 21:30] LABS: BUN Creatinine Ratio 6.7 (10-20); Calcium 7.6 mg/dl (8.5-10.1); Creatinine Clr Calc Pharmacy 36.6 ml/min; Est GFR (African American) 37.1; Potassium 3.1 mmol/L (3.5-5.1)
[2020-04-10] MEDS: ONDANSETRON INJ 2 MG/ML 2 ML VIAL IV PRN ×2 (22:20→22:49)
[2020-04-10 22:47] LABS: Magnesium 1.9 mg/dl (1.8-2.4)
[2020-04-10] MEDS ORDERED: POTASSIUM PHOS 3 MMOL/1 ML INFUSION IV STA (22:52)
[2020-04-10] MEDS ORDERED: FUROSEMIDE 40 MG in SYRINGE 0 ML IV ONE (22:59)
[2020-04-10] MEDS ORDERED: POTASSIUM PHOSPHATE 30 MMOL in SODIUM CHLORIDE 0.9% 500 ML IV ONE (23:00)
[2020-04-10] MEDS ORDERED: FUROSEMIDE 40 MG/4 ML VIAL IV ONE (23:00)
--- NOTE | 2020-04-10 23:58 | Communication Note ---
Date of Service: April 10, 2020 Patient developed respiratory distress and hypoxia this evening. She was temporarily placed on nonrebreather and chest x-ray was obtained which is consi stent with acute pulmonary congestion. Crackles were auscultated bilaterally in all lung gil[place] to correlate. Patient does have diastolic heart failure was receiving albumin transfusion for hepatorenal syndrome treatment. This is since been discontinued. Patient is now on BiPAP and showed improvement in respiratory status and oxygenation. She is given IV Lasix as well and will follow up response. I have personally spent 30 minutes of critical care time in the direct management of this patient. This is a life/limb threatening event. This includes time spent evaluating patient, direct bedside care, chart review, placing orders, interpretation of diagnostic studies, discussion with consultants, patient, and family members, as well as other required patient management activities. This time is exclusive of all separately billable procedures, and teaching time and separate from and in addition to any other critical care service time. Thank you for allowing us to participate in the care of this patient. Please refer to my attending physician's documentation for any further recommendations. Coding Level of Care Code Critical Care bety addt'l 30 min
[2020-04-11] MEDS: PIPERACILLIN/TAZOBACTAM 3.375 GM in DEXTROSE 5% 100 ML IV SCH ×3 (03:19→17:05)
[2020-04-11] MEDS: VASOPRESSIN 20 UNITS in 0.9 % SODIUM CHLORIDE 100 ML IV SCH ×3 (04:23→19:44)
[2020-04-11 05:40] LABS: Hematocrit (blood only) 25.2 % (37-47); Hemoglobin 8.4 g/dL (12.0-16.0); Mean Corpuscular Hemoglobin 31.5 pg (25-34); Mean Corpuscular Hgb Conc 33.3 g/dL (32-36); Mean Corpuscular Volume 94.4 fL (80-100); RDW Coefficient of Variation 23.2 % (11.5-14.5); Red Blood Count 2.67 M/uL (4.2-5.4); White Blood Count 5.35 K/uL (4.8-10.8)
[2020-04-11 05:52] LABS: Mean Platelet Volume 10.3 fL (7.4-10.4); Platelet Count 48 K/uL (130-400)
[2020-04-11 06:04] LABS: Prothrombin Time 56.1 Seconds (9.0-12.0)
[2020-04-11 06:22] LABS: Albumin Level 2.3 gm/dl (3.4-5.0); BUN Creatinine Ratio 6.7 (10-20); Bilirubin,Total 5.7 mg/dl (0.2-1); Calcium 7.1 mg/dl (8.5-10.1); Creatinine Clr Calc Pharmacy 37.1 ml/min; Est GFR (African American) 38.7; Est GFR (Non-African American) 33.4; Globulin 2.3 gm/dl (2.5-4.0); Magnesium 1.8 mg/dl (1.8-2.4); Phosphorus 3.2 mg/dl (2.5-4.9); Potassium 3.4 mmol/L (3.5-5.1); Total Protein 4.6 gm/dl (6.4-8.2)
[2020-04-11 06:35] LABS: INR 5.9 (0.9-1.1)
[2020-04-11] MEDS ORDERED: DEXTROSE 50% 50 ML SYRINGE IV PRN (07:37)
[2020-04-11] MEDS ORDERED: GLUCOSE 40% GEL 15 GM TUBE PO PRN (07:37)
[2020-04-11] MEDS ORDERED: CARBOHYDRATES FOR HYPOGLYCEMIA PO PRN (07:37)
[2020-04-11] MEDS ORDERED: GLUCAGON FOR INJ 1 MG VIAL SQ PRN (07:37)
[2020-04-11] MEDS ORDERED: GLUCOSE 10 TABS/TUBE PO PRN (07:37)
[2020-04-11] MEDS ORDERED: DEXTROSE 50% 50 ML SYRINGE IV ONE (07:39)
--- NOTE | 2020-04-11 08:12 | XRay Report ---
XR chest 1V portable HISTORY: hypoxia COMPARISON: Chest 04/10/2020. FINDINGS: No pneumothorax. Trace bilateral pleural effusions persist. Bilateral airspace opacities ar e again noted. The heart is normal in size. There are low lung volumes. IMPRESSION: Bilateral airspace opacities and trace bilateral pleural effusions persist. ACT 112: Negative or not required by law. Electronically signed by: Elmer Quan M.D. 04/11/2020 8:11 AM
[2020-04-11] MEDS: POTASSIUM CHLORIDE / WTR 10 MEQ/100 ML PLCT IV SCH ×4 (09:15→15:02)
[2020-04-11] MEDS: MAGNESIUM SULFATE / D5W 1 GM/100 ML BAG IV SCH ×2 (09:15→11:05)
[2020-04-11] MEDS: CALCIUM 600MG + VIT D 400 IU TAB PO SCH (09:17)
[2020-04-11] MEDS: MAGNESIUM OXIDE 400 MG TAB PO SCH (09:17)
[2020-04-11] MEDS: PANTOprazole 40 MG TAB PO SCH (09:17)
[2020-04-11] MEDS: MULTIVITAMIN CHEWABLE TAB PO SCH (09:17)
[2020-04-11] MEDS: busPIRone 5 MG TAB PO SCH (09:17)
[2020-04-11] MEDS: VENLAFAXINE HCL 37.5 MG TAB PO SCH ×2 (09:17→15:00)
[2020-04-11] MEDS: POTASSIUM CHLORIDE CRTAB 20 MEQ TABCR PO SCH (09:17)
[2020-04-11] MEDS: LACTULOSE SYRUP 30 GM/45 ML UDP PO SCH ×2 (09:17→15:00)
[2020-04-11] MEDS: FOLIC ACID 1 MG TAB PO SCH (09:17)
--- NOTE | 2020-04-11 10:09 | Gastroenterology Progress Note ---
Date of Service April 11, 2020 Assessment & Plan (1) Acute renal failure: (2) Acute hypoxemic respiratory failure: (3) Pneumonia: (4) Pulmonary emboli: (5) Chronic diastolic (congestive) heart failure: Pt is a 59 y/o female re-evaluated for possible hepatorenal syndrome. She had medical hx of RYGB, PE on Warfarin, CHF, severe protein-calorie malnutrition, ETOH uses currently admitted w pneumonia and MALAIKA. In review of previous abdominal imaging w u/s and CT, her liver appear to may have slight signs of steatosis but no indication of chronic liver dz/cirrhosis. Unlikely having HRS On exam, she is having tachypnea, crackles on bilateral lungs and bilateral LE edema. Wonder if main issue is surrounding worsening CHF and she may also have congestive hepatopathy Echocardiogram obtained yesterday showed mild LVH but preserved EF. May have volume overload from IVF/Albumin resuscitation. - Additional diuretics per primary team - Plt low, INR elevated; Coumadin held, also don't recommend Heparin at this time - Considered MRCP to r/o biliary obstruction given rise in Tbili but pt likely won't be able to cooperate with exam and just had liver u/s yesterday which showed no biliary dilation, thus will defer MRCP at this time - Consider holding Effexor & Doxycycline (new meds that may contribute to DILI). - Recommend transfer to tertiary care center for escalation of care & possible transjugular liver bx w portal and pulmonary pressures measurements (once able to get coagulopathy reversed) if she doesn't improve. Admission and Anticipated Discharge Date Admission Date: April 06, 2020 Supervising Physician Co-Signing Physician Notes I saw and evaluated the patient this morning. She looks quite ill as compared to yesterday. Her respiratory status seems to have been compromised quite significantly over the last 24 hours. I wonder if the patient's thrombocytopenia elevated bilirubin and anemia could be related to hemolysis related to DIC. Would recommend further evaluation with a peripheral smear, haptoglobin and LDH. In addition would recommend continuing her doxycycline and Effexor for the present time. Given the severity of her illness perhaps would be reasonable to refer her to a tertiary center, the patient has had numerous evaluations at [facility] in the past was recently admitted to that institution. Subjective Pt was transferred to ICU yesterday, still appears ill, confused (knows name and place but not answering much questions). Review of Systems Review of Systems: Unobtainable due to reduced consciousness Physical Exam Constitutional: + ill appearing and + in distress (tachypnic) Eyes: PERRL, conjunctivae normal, anicteric sclerae ENMT: external ear and nose normal, oropharynx normal Respiratory: + uses accessory muscles Auscultation: + crackles Cardiovascular: RRR, no murmur, no edema Gastrointestinal (Abdomen): Inspection/Auscultation: + hypoactive bowel sounds Percussion/Palpation: abdomen soft Skin: no rashes, warm and dry no jaundice Lymphatic: + lymphedema (bilateral LE ) Results & Data ([facility]) Vital Signs (Past 12 Hours) Vital Signs Temp Pulse Pulse Resp BP BP Pulse Ox 04/11/20 09:46 99 H 29 H 86/64 L 95 04/11/20 09:00 101 H 32 H 92/66 L 94 04/11/20 08:00 103 H 34 H 90 04/11/20 07:48 36.3 C L 04/11/20 07:00 102 H 27 H 91/58 L 94 04/11/20 04:29 36.3 C L 99 H 26 H 94/65 L 95 04/11/20 02:17 97 H 24 102/68 95 04/11/20 01:48 96 H 26 H 98 04/11/20 00:27 36.3 C L 97 H 26 H 108/72 98 04/10/20 23:05 107 H 30 H 96 04/10/20 23:00 106 H 22 108/72 99 (1) Acute renal failure Acute renal failure type: unspecified Qualified Code(s): N17.9 - Acute kidney failure, unspecified (2) Pulmonary emboli Acute cor pulmonale presence: unspecified Chronicity: unspecified Pulmonary embolism type: unspecified Qualified Code(s): I26.99 - Other pulmonary embolism without acute cor pulmonale
--- NOTE | 2020-04-11 10:36 | Critical Care Progress Note ---
Date of Service April 11, 2020 Assessment & Plan (1) Multiple organ failure with heart failure: Reason Critically Ill: Hypotension and acute kidney injury in setting of chronic disease with extensive past medical history and undergoing treatment for suspected hepatorenal syndrome with vasopressin drip PLAN: Neuro: Encephalopathylikely multifactorial in the setting of elevated ammonia, elevated BUN, and infection -Patient also has history of protein malnutrition and polysubstance abuse -Continue lactulose -See treatments for ARF and ID below -Starting high-dose thiamine -Monitor Resp: Hypoxiachest x-ray consistent with multifocal pneumonia, currently undergoing treatment with broad spectrum antibiotic -Currently maintaining oxygen saturation on oxymask -Echo with EF 60 to 65% and evidence of grade 1 diastolic heart failure, elevated BNP correlates with CHF -Patient did have recent hospitalization for pulmonary embolism, however supratherapeutic INR on Coumadin -We will hold on diuresis for the time being as patient is currently hypotensive, but maintenance fluids DCed -Continuous monitor on pulse oximetry CV: Shock: Undifferentiated -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 [employer] -Risk factors include gastric bypass surgery, alcoholism -Holding midodrine for vasopressin drip did not tolerate albumin infusion -Echo with EF 65% and grade 1 diastolic dysfunction -Improved from previous echo Fluids/Renal: Acute renal failurenephrology following and appreciate recommendations, no current indications for dialysis -Reviewed nephrology notes -Suspect patient would benefit from tertiary care facility ID: Blood cultures remain negative to date GI/Nutrition: Severe protein calorie malnutrition -Multifactorial of this patient has history of gastric bypass, EtOH abuse, failure to thrive. Recently had PEG tube removed in February due to fungal infection -Thiamine and vitamin C Transaminitistotal bili 4.3, alkaline phosphatase 142, AST and ALT unremarkable -Reviewed hep otology notes recommend transfer to tertiary care for possible transhepatic biopsy and additional diagnostic therapeutic interventions unavailable here Heme: Anemia Supratherapeutic INR -10 mg IV vitamin K x1 DVT prophylaxis: SCDs, holding anticoagulation for supratherapeutic INR at this time. Endocrine: ICU hyperglycemia protocol Vascular access: Peripheral IVs Code Status: Full code Disposition: ICU Discussed the patient with James will be accepted to medical ICU, Dr. Melendrez (2) Anemia: (3) Supratherapeutic INR: (4) Hypokalemia: (5) Hypomagnesemia: (6) Acute renal failure: (7) Elevated TSH: (8) Hypotension: (9) Acute renal failure superimposed on stage 3a chronic kidney disease: (10) Alcohol abuse: (11) Pulmonary emboli: (12) Severe protein-calorie malnutrition: Admission and Anticipated Discharge Date Admission Date: April 06, 2020 Subjective Patient has capacity, states she wants aggressive treatment, is willing to undergo intubation in event of respiratory distress, is agreeable with cardiopulmonary resuscitation. Patient is feeling unwell, no significant abdominal pain, positive nausea, positive shortness of breath, denies chest pain Review of Systems Review of Systems: As per the subjective. Physical Exam Physical Exam: General: Cachectic appearing, drowsy but arousable to voice Skin: Pale and fragile appearing Head: Atraumatic Ears, nose, mouth and throat: Tolerating noninvasive mechanical ventilation Cardiovascular: Increased capillary refill Respiratory: no respiratory distress Gastrointestinal: Positive hepatomegaly Musculoskeletal: 2+ pitting edema, generalized anasarca Results & Data Results & Data ([facility]) Vital Signs (Past 12 Hours) Vital Signs Temp Pulse Pulse Resp BP BP Pulse Ox 04/11/20 09:46 99 H 29 H 86/64 L 95 04/11/20 09:00 101 H 32 H 92/66 L 94 04/11/20 08:00 103 H 34 H 90 04/11/20 07:48 36.3 C L 04/11/20 07:00 102 H 27 H 91/58 L 94 04/11/20 04:29 36.3 C L 99 H 26 H 94/65 L 95 04/11/20 02:17 97 H 24 102/68 95 04/11/20 01:48 96 H 26 H 98 04/11/20 00:27 36.3 C L 97 H 26 H 108/72 98 04/10/20 23:05 107 H 30 H 96 04/10/20 23:00 106 H 22 108/72 99 Coding Level of Care Code Critical Care 1st 30-74 mins Diagnoses Multiple organ failure with heart failure I50.9 Anemia D51.3 Anemia type: B12 deficiency Vitamin B12 deficiency anemia type: other dietary B12 deficiency Supratherapeutic INR R79.1 Hypokalemia E87.6 Hypomagnesemia E83.42 Acute renal failure N17.9 Acute renal failure type: unspecified Elevated TSH R79.89 Hypotension I95.9 Hypotension type: unspecified hypotension type Acute renal failure superimposed on stage 3a chronic kidney disease N17.9; N18.31 Alcohol abuse F10.10 Pulmonary emboli I26.99 Acute cor pulmonale presence: unspecified Chronicity: unspecified Pulmonary embolism type: unspecified Severe protein-calorie malnutrition E43 Time Spent (min) 60 (1) Acute renal failure Acute renal failure type: unspecified Qualified Code(s): N17.9 - Acute kidney failure, unspecified (2) Anemia Anemia type: B12 deficiency Vitamin B12 deficiency anemia type: other dietary B12 deficiency Qualified Code(s): D51.3 - Other dietary vitamin B12 deficiency anemia (3) Pulmonary emboli Acute cor pulmonale presence: unspecified Chronicity: unspecified Pulmonary embolism type: unspecified Qualified Code(s): I26.99 - Other pulmonary embolism without acute cor pulmonale (4) Hypotension Hypotension type: unspecified hypotension type Qualified Code(s): I95.9 - Hypotension, unspecified
[2020-04-11] MEDS ORDERED: PHYTONADIONE 10 MG in SODIUM CHLORIDE 0.9% 50 ML IV ONE (10:45)
[2020-04-11 11:06] LABS: Fibrinogen 153 mg/dl (184-400)
[2020-04-11] MEDS: THIAMINE HCL 500 MG in 0.9 % SODIUM CHLORIDE 100 ML IV SCH ×2 (11:13→15:00)
[2020-04-11] MEDS: NYSTATIN CR 15 GM TUBE EXT SCH (11:14)
[2020-04-11 11:26] LABS: BUN Creatinine Ratio 6.6 (10-20); Calcium 7.7 mg/dl (8.5-10.1); Creatinine Clr Calc Pharmacy 35.1 ml/min; Est GFR (African American) 36.3; Est GFR (Non-African American) 31.3; Potassium 3.2 mmol/L (3.5-5.1)
[2020-04-11] MEDS: MIRTAZAPINE SOLTAB 15 MG PO SCH (12:03)
[2020-04-11] MEDS: NICOTINE 21 MG/24 HR TDSY TD SCH (12:10)
[2020-04-11] MEDS: DOXYCYCLINE HYCLATE 100 MG in DEXTROSE 5% 100 ML IV SCH (12:11)
[2020-04-11 12:59] LABS: iSTAT Allen Test Pass; iSTAT Art Bld Gas pCO2 Correct 31 mmHg (35-46); iSTAT Art Bld Gas pH Corrected 7.385 (7.35-7.45); iSTAT Arterial Blood Gas HCO3 19 meg/L (19-24); iSTAT Arterial Blood Gas pCO2 32 mmHg (35-46); iSTAT Arterial Blood Gas pH 7.38 (7.35-7.45); iSTAT Arterial Blood Gas pO2 > 420 mmHg (80-95); iSTAT Arterial Blood Gas pO2 C 432; iSTAT Carbon Dioxide 20 mmol/L (24-31); iSTAT FiO2 100 %; iSTAT Hematocrit 27 % (37-47); iSTAT Hemoglobin 9.2 g/dl (12.0-16.0); iSTAT Potassium 3.5 mmol/L (3.3-5.0); iSTAT Site L Radial; iSTAT Sodium 143 mmol/L (135-144)
--- NOTE | 2020-04-11 13:55 | Nephrology Progress Note ---
Date of Service April 11, 2020 Assessment & Plan (1) Acute renal failure: renal function essentially plateau'd since admission creatinine 1.7-1.9 > may well be prerenal given her diminished intake past 6-8 wks po (and almost no intake po this admission); though I start to wonder about other etiologies including even GN. she has new blood and protein in urine compared to earlier this year and that is pre ybarra. already had renal failure in march (see c/s note) w/ creat up to 1.3. while HRS is on the differential I don't consider it top of the list; would consider other etiologies including prerenal, ischemic or sepsis related ATN; GNs; would expect less inflamed urine sediment with HRS and rising (not stable) creatinine. GI not finding results c/w chronic liver disease though steatosis noted. clearly w/ low plts, high INR along w/ not clear to me and defer to primary srevice/GI on this how severe her liver disease is > INR noted; looks also to be in heart failure and septic (?PNA). no indication for dialysis. would not start empiric tx for HRS. she is 4L postiive yesterday and almost 10L positive since admission > (likely not truly 10L b/c had no ybarra until today) . renal u/s unrevealing. -bmp to be repeated now - ordered along w/ mag, phos -hold albumin IV ; cont pressor and midodrine >>>>recommend lasix IV to continue/standing >> d/w Dr Madrigal and will start lasix 20 mg IV qid stat -daily bmp and phos and mag and calcium to conitnue -cont K supplements as indicated and midodrine >>>further labs to evaluate high INR/worse than baseline anemia/progressively depleting plts >> consider MAHA or DIC : check haptoglobin, fibrin split products, recheck PTT; peripheral smear; HIT panel; note LDH elevated, fibrinogen low; --quantify proteinuria > ordered >> low threshold to order serologic w/u for protienuria >>cannot rule out consideration of renal bx though plts would make this a challenge (2) Severe protein-calorie malnutrition: suspect this is driving renal failure which is progressive from March -work w/ nutrition/GI to get comprehensive plan on this -consider NGT/TF (3) Hypotension: on chronic midodrine max dose since early 2019 w/ markedly worse HF May 2019 in setting of PE; >avoid IVF -cont midodrine and vaso for now (4) Electrolyte and fluid disorder: in addition to fluid OL now with hyernatremia, metabolic acidosis (likely lactic acidosis), hypokalemia, low phos >> monitor/replete; start lasix as above Present on Admission?: Yes Admission and Anticipated Discharge Date Admission Date: April 06, 2020 Subjective Decompensated with worsening work of breathing and hypoxia overnight: Chest x- ray showed acute pulmonary congestion and she was placed on a nonrebreather then BiPAP; she had 40 mg IV Lasix x1 and put out 850 mL of urine. Remains over 10 L positive on the admission though output earlier in the admission may not be accurate. Potassium repleted this morning TTE is reassuring. Adding therapy for HRS. back on BiPAP since about midday. Review of Systems Review of Systems: Unobtainable due to reduced consciousness Physical Exam Constitutional: well developed, + acute distress (mild --agitated, moaning, restless, trying to remove BiPAP occasionally), + ill appearing and + malnourished Eyes: EOM intact bilaterally ENMT: Ears: no external ear abnormality Nose: no external nose abnormality Mouth: + dry oral mucous membranes Neck: no nuchal rigidity Respiratory: + labored breathing Auscultation: + diminished lung sounds and + crackles (Diffusely) Cardiovascular: Rate/Rhythm: regular rhythm and + tachycardic Extremities: + edema (trace BLE; 2+ pedal; weeping edema right arm) Gastrointestinal (Abdomen): Inspection/Auscultation: normal bowel sounds Percussion/Palpation: abdomen soft; abdomen nontender Musculoskeletal: Extremities: + limited ROM of extremities and + abnormal strength Skin: no rashes, warm and dry Trauma: + evidence of skin trauma, + abrasion and + contusion Neurologic: moves all extremities Speech / Cognition: + abnormal cognition Psychiatric: Orientation: oriented to person Affect: + flat affect Not interactive not answering questions consistently even yes/no questions Genitourinary: Ybarra with some light brown urine Results & Data ([facility]) Vital Signs (Past 12 Hours) Vital Signs Temp Pulse Pulse Resp BP BP Pulse Ox 04/11/20 12:55 136 H 22 100 04/11/20 09:46 99 H 29 H 86/64 L 95 04/11/20 09:00 101 H 32 H 92/66 L 94 04/11/20 08:00 100 H 34 H 90 04/11/20 07:48 36.3 C L 04/11/20 07:00 102 H 27 H 91/58 L 94 04/11/20 04:29 36.3 C L 99 H 26 H 94/65 L 95 04/11/20 02:17 97 H 24 102/68 95 Laboratory Results 04/11/20 04:39 04/11/20 10:33 Outpatient urinalyses June and July 2019 remarkable for marked bacteriuria but trace blood on 1 of 2 specimens and no dipstick proteinuria Diagnostic Findings Chest x-ray last evening Bilateral airspace opacities and trace bilateral pleural effusions persist. (1) Acute renal failure Acute renal failure type: unspecified Qualified Code(s): N17.9 - Acute kidney failure, unspecified (2) Hypotension Hypotension type: unspecified hypotension type Qualified Code(s): I95.9 - Hypotension, unspecified
[2020-04-11] MEDS: FUROSEMIDE 20 MG in SYRINGE 0 ML IV SCH ×2 (15:00→17:05)
[2020-04-11 15:31] LABS: BUN Creatinine Ratio 6.2 (10-20); Calcium 7.2 mg/dl (8.5-10.1); Creatinine Clr Calc Pharmacy 35.6 ml/min; Est GFR (African American) 36.8; Est GFR (Non-African American) 31.8; Magnesium 2.3 mg/dl (1.8-2.4); Phosphorus 2.8 mg/dl (2.5-4.9); Potassium 3.6 mmol/L (3.5-5.1)
--- NOTE | 2020-04-11 16:47 | Hospitalist Progress Note ---
Date of Service April 11, 2020 Assessment & Plan (1) Pneumonia involving right lung: Patient is a 59 yr female with H/O Gastric bypass, severe protein calorie malnutrition, recent history of gastrotomy tube removed 02/02 secondary to recurrent fungal infection, history of PE on warfarin, chronic diastolic CHF, alcohol abuse, tobacco abuse, fibromyalgia, depression, intestinal postoperative nonabsorption, esophageal dysphagia, orthostatic hypotension, hyperlipidemia who presents to ED secondary to weakness for several weeks. Community-acquired pneumonia Acute respiratory failure with hypoxia Septic Shock Multiorgan Failure CXR:Right mid to upper lung zone airspace opacities suspicious for pneumonia. Clinical and radiographic follow-up is recommended. Repeat chest x-ray showed significant progression of bilateral opacities MRSA:Negative COVID Screen: Negative Biofire: Negative Blood Culture: No growth Urine Cx:Yeast Normal Lactate levels on presentation Repeat Lactic acid:3.9 >3.5 Procalcitonin:1.03>1.97>2.26>2.48>3.29 Received IV fluids Continue Zosyn, doxycycline Aspiration Precautions Home Inhalers PRN Continue BiPAP. respiratory support as per ICU team Appreciate Set Up Machinist help On Vasopressin May need to be transferred to [facility] as clinically deteriorating (2) Acute renal failure superimposed on stage 3a chronic kidney disease: MALAIKA on CKD III Likely prerenal/ATN DD:Hepatorenal Syndrome, GN, Vasculitis Volume overload, intravascularly depleted Cr:1.7 > 1.6>1.79 Renal USD: Limited exam as above. No renal calculi or hydronephrosis. Bladder Scan PRN Lasix as per Nephrology Held IV Albumin Avoid nephrotoxic agents as Monitor renal function Appreciate Nephrology Input May need Kidney biopsy to get definitive diagnosis but [facility] [facility] doesnt[place] recommend it currently (3) Hypokalemia: Replace electrolytes as needed Monitor (4) Hypomagnesemia: Replete electrolytes as needed Monitor . (5) Anemia: Symptomatic Anemia Likely Multifactorial--malnutritional, S/P gastric Bypass, Alcohol use Chronic Anemia On thiamine, folic acid daily along with B12 monthly Denies Bleeding Issues FOBT: Negative S/P 2 units PRBCs Monitor CBC Hyperbilirubinemia Liver USD:No significant biliary ductal dilatation status post cholecystectomy. Increased hepatic echogenicity suggestive of hepatic steatosis. Trace perihepatic ascites. Obscured pancreas. Congestive Hepatopathy Patient may not tolerate MRCP Appreciate GI Input May require possible transjugular liver biopsy with portal and pulmonary pressure measurements Monitor LFTs (6) Hypotension: Chronic Hypotension H/O Orthostatic hypotension, likely worsened due to anemia, infection Continue midodrine --has been refusing most medications Denies Dizziness Monitor BP (7) Supratherapeutic INR: Monitor INR 7.6>5.4>3.2>4.1>?5.9 Received vitamin K Held Coumadin No bleeding issues Monitor INR (8) Elevated TSH: TSH 9, free T4 near normal Prior outpatient thyroid function test unremarkable Plan repeat thyroid function test as outpatient (9) Alcohol abuse: Fatty Liver/Hepatic Steatosis ? Cirrhosis Hyperammonemia ? 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 No segmental left ventricle wall motion abnormality. Grade 1 diastolic dysfunction. Aortic valve sclerosis mild, without significant aortic valvular stenosis. Received albumin Monitor volume status closely Lasix as per Nephrology/ICU Monitor daily weights, strict I's and O's (12) Dyslipidemia: Continue statin (13) Severe protein-calorie malnutrition: Previously was on tube feeds--removed 02/02 Very Poor Oral Intake Albumin 1.1 Consulted dietitian Encourage increased PO Intake Need to consider parenteral nutrition Vs Tube feeds (14) Pulmonary embolism: H/O PE with cor pulmonale Supratherapeutic INR Hold Coumadin for now Monitor INR DVT Px: Supratherapeutic INR CODE STATUS Full code Disposition PT/OT prior to discharge Family Contact: Patient maribeth Watson [phone] Admission and Anticipated Discharge Date Admission Date: April 06, 2020 Subjective Patient is seen and examined at bedside Clinically deteriorating Currently on BiPAP for respiratory distress Also on pressors Discussed with patient's fianc over the phone about patient's condition Patient states having generalized pain and dyspnea Denies nausea, vomiting, abdominal pain Unable to provide much history. Review of Systems Review of Systems: All systems reviewed & are unremarkable except as noted in HPI & below Physical Exam Physical Exam: Physical Exam: Vitals signs as noted above General Appearance:Chronic Ill appearing, Pale, malnourished , mild distress Head: normocephalic, Atraumatic Eyes: normal inspection, EOMI +Pallor Neck: supple, Trachea midline Respiratory/Chest: Decreased breath sounds, Diffuse Basal crackles Cardiovascular: S1, S2, No murmur, +Tachycardia Abdomen/GI:Soft, Non tender, Bowel sounds present Extremities/Musculoskelatal:normal inspection, 2+ B/L LE edema Neurologic/Psych:AAOX3, grossly no focal neurological deficits Skin: normal color, warm, +pretibial skin tear, multiple excoriations Results & Data Results & Data ([facility]) Vital Signs (Past 12 Hours) Vital Signs Temp Pulse Pulse Resp BP BP Pulse Ox 04/11/20 15:36 36.9 C 94 H 18 121/98 99 04/11/20 15:26 94 H 30 H 94 04/11/20 15:00 35.1 C L 94 H 30 H 121/98 100 04/11/20 14:00 35.1 C L 95 H 28 H 96/69 L 99 04/11/20 13:00 35.1 C L 94 H 28 H 97/59 L 98 04/11/20 12:55 136 H 22 100 04/11/20 12:00 35.1 C L 97 H 28 H 83/61 L 100 04/11/20 11:00 101 H 30 H 93/62 L 92 04/11/20 10:00 99 H 36 H 93 04/11/20 09:46 99 H 29 H 86/64 L 95 04/11/20 09:00 101 H 32 H 92/66 L 94 04/11/20 08:00 100 H 34 H 90 04/11/20 07:48 36.3 C L 04/11/20 07:00 102 H 27 H 91/58 L 94 Laboratory Results Short CBC 04/11/20 Range/Units 04:39 WBC 5.35 (4.8-10.8) K/uL Hgb 8.4 L (12.0-16.0) g/dL Hct 25.2 L (37-47) % Plt Count 48 L (130-400) K/uL BMP 04/10/20 04/11/20 04/11/20 20:53 04:39 10:33 Sodium 145 143 146 H Potassium 3.1 L 3.4 L 3.2 L Chloride 115 H 114 H 116 H Carbon Dioxide 21 22 19 L BUN 12 11 12 Creatinine 1.72 H 1.66 H 1.75 H Glucose 90 64 L 72 Calcium 7.6 L 7.1 L 7.7 L 04/11/20 14:53 Sodium 143 Potassium 3.6 Chloride 114 H Carbon Dioxide 19 L BUN 11 Creatinine 1.73 H Glucose 81 Calcium 7.2 L Liver Function 04/11/20 Range/Units 04:39 Total Bilirubin 5.7 H (0.2-1) mg/dl AST 33 (15-37) U/L ALT 21 (12-78) U/L Alkaline Phosphatase 131 H (45-117) U/L Albumin 2.3 L (3.4-5.0) gm/dl (1) Anemia Anemia type: B12 deficiency Vitamin B12 deficiency anemia type: other dietary B12 deficiency Qualified Code(s): D51.3 - Other dietary vitamin B12 deficiency anemia (2) Pulmonary embolism Acute cor pulmonale presence: unspecified Chronicity: unspecified Pulmonary embolism type: unspecified Qualified Code(s): I26.99 - Other pulmonary embolism without acute cor pulmonale (3) Hypotension Hypotension type: unspecified hypotension type Qualified Code(s): I95.9 - Hypotension, unspecified
[2020-04-11] MEDS ORDERED: ASCORBIC ACID 500 MG TAB PO SCH (19:15)
[2020-04-11 19:33] VITALS: TEMP 95.2; O2SAT 100
[2020-04-11 20:02] LABS: Hepatitis A Antibody IgM NON-REACTIVE (NON-REACTIVE); Hepatitis B Core Antibody IgM NON-REACTIVE (NON-REACTIVE)
--- NOTE | 2020-04-11 20:16 | Discharge Summary ---
Date of Service April 11, 2020 Admission HPI Per Admitting Provider This is a 59-year-old female who has significant past medical history of gastric bypass, severe protein calorie malnutrition, recent history of gastrotomy tube removed 02/02 secondary to recurrent fungal infection, history of PE on warfarin, chronic diastolic CHF, alcohol abuse, tobacco abuse, fibromyalgia, depression, intestinal postoperative nonabsorption, esophageal dysphagia, orthostatic hypotension, hyperlipidemia who presents to ED secondary to weakness for several weeks. She lives at home with her firuthann. He is mostly her counter top assembler. He has known her for the past 2 years. She was doing well up until the removal of her G-tube on 02/02. She had G-tube in place secondary to severe protein calorie malnutrition and was removed secondary to recurrent fungal infection surrounding the tube. Since removal of the tubes she has been steadily going downhill, becoming increasingly weak, less active and continuing to have minimal p.o. intake. He tries to encourage feedings, but patient just states, "nothing tastes right." He tries to encourage beef bone broth to offer high-protein and she does drink this about 4 ounces daily but otherwise intake is minimal. Over the past week she has had 3 episodes whenever he fully assist her to the bathroom where she goes limp in his arms for seconds, but is able to communicate. No feliz syncope. She is very weak to the point he is unable to mobilize her. He feels most of her current conditions are secondary to her malnutrition. She does smoke 2 packs a day and drinks approximately 5 ounces of hard liquor daily. She does have a chronic cough that is nonproductive. He denies any coughing with meals. She denies fever, chills, sweats, syncope, chest pain, shortness of breath, palpitations, nausea, vomiting, abdominal pain, dysuria, increased urgency or frequency with urination, melena, hematochezia, or hematuria. She does have chronic lower extremity edema and has a small skin tear to her right nichols secondary to cat scratch. Her edema has been getting worse. Per maribeth her baseline weight is approximately 110 when she was on the feeding tube and is up to 170 pounds. She has not left the house in over 2 weeks. She does admit to getting lightheaded and dizzy when standing. This resolves when she is sitting. In ED patient was initially hemodynamically stable, but did become hypotensive 80s over 50s. She was not tachycardic and she was afebrile. She was saturating on room air. Significant lab abnormalities include H&H 7.8 and 22.9, INR 7.6, potassium 2.9, creatinine 1.93, mag 1.7, albumin 1.1, pro-Prem 1.03, TSH 9.06, free T4 0.79. Covid screen negative. Ethyl alcohol WNL. Chest x-ray concerning for right upper and mid lung opacity. She did receive 1 g IV magnesium and 40 mEq of p.o. potassium. Blood cultures were obtained and IV Zosyn was ordered. She initially received 500 mL of IVF and went became hypotensive was ordered additional 1 L. She does take midodrine 10 mg 3 times daily and this was administered in ER. Admission Exam Per Admitting Provider Physical Exam Physical Exam: Constitutional: Chronically ill-appearing female, pale, malnourished appearing, vitals as above, NAD, sitting up in bed, answers questions appropriately Head: Normocephalic, Atraumatic Eyes: PERRL, conjunctivae normal, anicteric sclerae ENMT: external ear and nose normal, oropharynx normal Neck: trachea midline, no thyromegaly normal visual inspection Respiratory: normal respiratory effort, lungs clear to auscultation, no wheeze, rales, rhonchi. Normal insp/exp effort, no accessory muscle use Cardiovascular: RRR, no murmur, bilateral lower extremity +2 edema with venous stasis changes Vessels: no JVD or carotid bruit Chest: normal inspection of chest Abdomen: normal bowel sounds, soft, nontender, no hepatosplenomegaly appreciated Musculoskeletal: no cyanosis or clubbing, extremities motor strength 5/5 Skin: Patient with multiple skin excoriations on anterior and posterior thorax and upper and lower extremities, skin tear to right pretibial surface, no evidence of cellulitis, warm and dry normal turgor Neurologic: PERRL, EOMI, accommodation nl, no face palsy, no dysarthria CN's II-XI intact bilaterally and moves all extremities Psychiatric: A+Ox3, euthymic affect Lymphatic: no cervical or axillary lymphadenopathy : deferred Principal Diagnosis Community-acquired pneumonia Acute respiratory failure with hypoxia Septic Shock Multiorgan Failure MALAIKA on CKD III Hypokalemia Hypomagnesemia Symptomatic Anemia Hyperbilirubinemia Chronic Orthostatic Hypotension Supratherapeutic INR Alcohol use disorder Volume overload Severe protein-calorie malnutrition Discharge Data Allergies Allergy/AdvReac Type Severity Reaction Status Date / Time codeine Allergy Intermediate Diarrhea/Ra Verified 04/06/20 18:44 sh duloxetine Allergy Intermediate Crawling Verified 04/06/20 18:44 out of her skin sensation NSAIDS (Non-Steroidal Allergy Unknown None Verified 04/06/20 18:44 Anti-Inflamma Bactrim AdvReac Intermediate DELIRIUM Verified 12/28/17 19:46 clonazepam AdvReac Intermediate Syncope Verified 04/06/20 18:44 hydrocodone AdvReac Intermediate Over Verified 04/06/20 18:44 sedated hydromorphone AdvReac Intermediate Weakness Verified 04/06/20 18:44 and sweating sulfamethoxazole AdvReac Intermediate DELIRIUM Verified 04/06/20 18:44 trimethoprim AdvReac Intermediate DELIRIUM Verified 04/06/20 18:44 aspirin AdvReac Mild STOMACH Verified 04/06/20 18:44 IRRITATION cephalexin AdvReac Mild GI SYMPTOMS Verified 09/29/19 14:46 Consultations 04/06/20 18:27 ED Decision to Admit Stat 04/06/20 20:06 Consult Case Management - Discharge Planning Routine Consult Case Management - Discharge Planning Routine Consult Gastroenterology Routine 04/09/20 08:45 Consult Nephrology Routine 04/10/20 11:03 Consult Laser Machine Operator Routine 04/11/20 19:53 Burn CD for patient Stat Procedures Performed CXR: Progressive right mid and upper lung zone airspace opacity suspicious for pneumonia. Clinical and radiographic follow-up is recommended. Renal USD: Limited exam secondary to patient body habitus and obscuring bowel gas. The right kidney measures 9.8 cm in length. The left kidney is suboptimally visu alized and measures approximately 9.1 cm. No renal calculi, hydronephrosis or suspicious mass lesion. The previously noted cyst of the inferior pole left kidney is not well visualized. Cortical thickness is within normal limits. Decompressed urinary bladder with Palafox catheter. Liver USD: 1. Exam compromised by suboptimal penetration. No significant biliary ductal dilatation status post cholecystectomy. 2. Increased hepatic echogenicity suggestive of hepatic steatosis. 3. Trace perihepatic ascites. 4. Obscured pancreas. Ordered Studies 04/10/20 07:11 US renal/blad retro comp Routine 04/10/20 08:28 US liver Routine 04/11/20 08:35 MR MRCP Stat Hospital Course (1) Pneumonia involving right lung: Patient is a 59 yr female with H/O Gastric bypass, severe protein calorie malnutrition, recent history of gastrotomy tube removed 02/02 secondary to recurrent fungal infection, history of PE on warfarin, chronic diastolic CHF, alcohol abuse, tobacco abuse, fibromyalgia, depression, intestinal postoperative nonabsorption, esophageal dysphagia, orthostatic hypotension, hyperlipidemia who presents to ED secondary to weakness for several weeks. Community-acquired pneumonia Acute respiratory failure with hypoxia Septic Shock Multiorgan Failure CXR:Right mid to upper lung zone airspace opacities suspicious for pneumonia. Clinical and radiographic follow-up is recommended. Repeat chest x-ray showed significant progression of bilateral opacities MRSA:Negative COVID Screen: Negative Biofire: Negative Blood Culture: No growth Urine Cx:Yeast Normal Lactate levels on presentation Repeat Lactic acid:3.9 >3.5 Procalcitonin:1.03>1.97>2.26>2.48>3.29 Received IV fluids Continue Zosyn, doxycycline Aspiration Precautions Home Inhalers PRN Continue BiPAP. respiratory support as per ICU team Appreciate Laser Machine Operator help On Vasopressin Given complexity of clinical condition/Multiorgan failure and possible need for kidney/liver biopsy, patient was transferred to [facility] for further management. kindly accepted the patient. (2) Acute renal failure superimposed on stage 3a chronic kidney disease: MALAIKA on CKD III Likely prerenal/ATN DD:Hepatorenal Syndrome, GN, Vasculitis Volume overload, intravascularly depleted Cr:1.7 > 1.6>1.79 Renal USD: Limited exam as above. No renal calculi or hydronephrosis. Bladder Scan PRN Lasix as per Nephrology Held IV Albumin Avoid nephrotoxic agents as Monitor renal function Appreciate Nephrology Input May need Kidney biopsy to get definitive diagnosis (3) Hypokalemia: Replace electrolytes as needed Monitor (4) Hypomagnesemia: Replete electrolytes as needed Monitor . (5) Anemia: Symptomatic Anemia Likely Multifactorial--malnutritional, S/P gastric Bypass, Alcohol use Chronic Anemia On thiamine, folic acid daily along with B12 monthly Denies Bleeding Issues FOBT: Negative S/P 2 units PRBCs Monitor CBC Hyperbilirubinemia Liver USD:No significant biliary ductal dilatation status post cholecystectomy. Increased hepatic echogenicity suggestive of hepatic steatosis. Trace perihepatic ascites. Obscured pancreas. Congestive Hepatopathy Patient may not tolerate MRCP Appreciate GI Input May require possible transjugular liver biopsy with portal and pulmonary pressure measurements Monitor LFTs (6) Hypotension: Chronic Hypotension H/O Orthostatic hypotension, likely worsened due to anemia, infection Continue midodrine --has been refusing most medications Denies Dizziness Monitor BP (7) Supratherapeutic INR: Monitor INR 7.6>5.4>3.2>4.1>?5.9 Received vitamin K Held Coumadin No bleeding issues Monitor INR (8) Elevated TSH: TSH 9, free T4 near normal Prior outpatient thyroid function test unremarkable Plan repeat thyroid function test as outpatient (9) Alcohol abuse: Fatty Liver/Hepatic Steatosis ? Cirrhosis Hyperammonemia ? 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 No segmental left ventricle wall motion abnormality. Grade 1 diastolic dysfunction. Aortic valve sclerosis mild, without significant aortic valvular stenosis. Received albumin Monitor volume status closely Lasix as per Nephrology/ICU Monitor daily weights, strict I's and O's (12) Dyslipidemia: Continue statin (13) Severe protein-calorie malnutrition: Previously was on tube feeds--removed 02/02 Very Poor Oral Intake Albumin 1.1 Consulted dietitian Encourage increased PO Intake Need to consider parenteral nutrition Vs Tube feeds (14) Pulmonary embolism: H/O PE with cor pulmonale Supratherapeutic INR Hold Coumadin for now Monitor INR DVT Px: Supratherapeutic INR CODE STATUS Full code Disposition Given complexity of clinical condition/Multiorgan failure and possible need for kidney/liver biopsy, patient was transferred to [facility] for further management. kindly accepted the patient. Patient's fianc was updated of the clinical condition and he is aware of the transfer. Family Contact: Patient fianc Ramo Watson [phone] Total Time Total Time Spent Total Time Spent (In Minutes): 50 minutes Discharge Plan Discharge Items Patient Disposition: Transfer Acute Care Hospital Reason For Visit: SKI, ANEMIA, PNEUMONIA Discharge Diagnosis: Community-acquired pneumonia Acute respiratory failure with hypoxia Septic Shock Multiorgan Failure MALAIKA on CKD III Hypokalemia Hypomagnesemia Symptomatic Anemia Hyperbilirubinemia Chronic Orthostatic Hypotension Supratherapeutic INR Alcohol use disorder Volume overload Severe protein-calorie malnutrition Activity: Per Instructions section Exercise/Sports: Wait until after follow-up appointment Non-emergency contact: Primary Care Provider, Asbestos Surveyor and Chainstitch Hemmer Call non-emergency contact if: you have any medication questions, your symptoms worsen, your pain is not controlled and you have a fever Follow-up/Referrals: Kvng Ceron DO [Primary Care Provider] - Diet: Heart Healthy Addtl Attending Provider Instructions: Follow up with (Laser Machine Operator) at [facility] for further evaluation and management PLEASE REVIEW PAPER CHART FOR ACCURATE MEDICATION RECONCILIATION Pending Studies at Discharge: Yes Studies:: Blood Culture Stand-Alone Forms: My [facility] Skilled Items Patient informed of condition?: Yes DNR: No Discharge Level of Care: Other Communicable Disease: No Discharge Prognosis: Deteriorating Lines: Peripheral IV Urinary Catheter: No Medications and DC Order Prescriptions: New potassium chloride [Klor-Con M20] 20 mEq Tablet,Er Particles/Crystals 20 meq PO QAM Qty: 0 RF: 0 Piperacill/Tazobac Consult [Consult] 1 dose Not Applicable UD PRNQty: 0 RF: 0 lactulose 20 gram/30 mL Solution 1 ml PO TID Qty: 0 RF: 0 ipratropium-albuterol 0.5 mg-3 mg(2.5 mg base)/3 mL Solution For Nebulization 3 ml NEB QIDR PRNQty: 0 RF: 0 nicotine [Nicoderm CQ] 21 mg/24 hr Patch 24 Hour 21 mg transdermal QAM Qty: 0 RF: 0 magnesium oxide 400 mg (241.3 mg magnesium) Tablet 400 mg PO QAM Qty: 0 RF: 0 Continued omeprazole 20 mg Capsule,Delayed Release(Dr/Ec) 20 mg PO BID RF: 0 albuterol sulfate [Ventolin HFA] 90 mcg/actuation Hfa Aerosol Inhaler 2 puff INHALATION QID PRN (Reason: Shortness Of Breath Or Wheezing) RF: 0 ondansetron HCl 4 mg Tablet 4 mg PO Q8H PRN (Reason: Nausea) RF: 0 thiamine HCl (vitamin B1) 100 mg Tablet 100 mg PO BID RF: 0 nystatin 100,000 unit/gram Powder 1 applic TOPICAL TID PRN (Reason: Rash) RF: 0 vitamin A 10,000 unit Capsule 10,000 unit PO QAM RF: 0 midodrine 10 mg Tablet 10 mg PO TID@0800,1200,1700 Qty: 30 RF: 0 warfarin [Jantoven] 10 mg tablet 5 mg PO DAILY RF: 0 silver sulfadiazine [Silvadene] 1 % Cream 1 applic TOPICAL UD PRN (Reason: ..) RF: 0 loperamide [Imodium] 2 mg Capsule 2 mg PO UD PRN (Reason: Diarrhea) RF: 0 trazodone 50 mg tablet 50 mg PO HS RF: 0 zinc sulfate 220 mg Tablet 220 mg PO DAILY RF: 0 ascorbic acid (vitamin C) [Vitamin C] 500 mg Tablet 500 mg PO DAILY RF: 0 diphenhydramine HCl [Benadryl] 25 mg Capsule 50 mg PO HS PRN (Reason: Sleep) RF: 0 lidocaine 5 % Adhesive Patch,Medicated 3 patch TOPICAL DAILY RF: 0 folic acid 1 mg Tablet 1 mg PO DAILY RF: 0 furosemide [Lasix] 20 mg Tablet 20 mg PO DAILY RF: 0 calcium citrate-vitamin D3 [Citracal + D Maximum] 315 mg-6.25 mcg (250 unit) Tablet 1 tab PO BID RF: 0 Flintstones Plus Iron 15 mg iron Tablet,Chewable 1 tab PO BID RF: 0 magnesium chloride 64 mg magnesium Tablet 64 mg PO BID RF: 0 mirtazapine 45 mg tablet 45 mg PO DAILY RF: 0 cyanocobalamin (vitamin B-12) 1,000 mcg/mL Solution 1,000 mcg IM MONTHLY RF: 0 venlafaxine 75 mg tablet 75 mg PO TID RF: 0 buspirone 10 mg tablet 20 mg PO BID RF: 0 Discontinued acetaminophen 325 mg Tablet 650 mg PO QID PRN (Reason: Pain) RF: 0 Discharge Orders: Discharge Order (Routine); Ordered 04/11/20 Ordered By: David Trores Admission Data Admit Date/Time: 04/06/20 18:47 Attending Provider: David Torres Admit Provider: Kiko Cam Primary Care Provider: Kvng Ceron Other Providers: Kiko Cam ; My Last ; Ele Huizar ; Anoop Jackson
[2020-04-11 21:17] VITALS: BP 97/58; PULSE 97
--- NOTE | 2020-04-18 06:44 | Coding Query ---
PRESENT ON ADMISSION QUERY To promote full compliance with coding requirements relating to pateint care, physician participation is requested in all cases of tub chucker uncertainty. Please assist us with the question(s) below: Please place an X within the parenthesis (x). The following diagnosis listed in this patient's medical record require physician assistance to determine if they were present on admission (POA) or not. Please advise for each diagnosis whether it was present on admission, not present on admission, or if it was clinically undetermined. 1.SEPTIC SHOCK ( ) Present On Admission ( x) Not Present On Admission ( ) Clinically Undetermined Thank you [place] *Definition of the present on admission (POA)-Present on admission is defined as present at the time the order for inpatient admission occurs. Conditions that develop during an outpatient encounter prior to a written order for inpatient admission (including emergency department, observation, or outpatient surgery) are considered present on admission. MARCO
== END 2020-04-11 21:13 | disposition short-term general hospital (02) | DRG 193 ==
LOC: ED 16:05 → 2S 18:47 → SUATTDRO 18:47 → 2S 19:36 → 1E 04-10 10:19